=== PATIENT | female | born 1965 | race Caucasian/White ===

== ENCOUNTER 2022-01-30 13:52 | Outpatient (REF) | payer MEDICARE, SELFPAY ==
[2022-01-30 15:19] LABS: Amphetamine Screen Urine Not Detected (Not Detect); Barbiturates, Urine Not Detected (Not Detect); Benzodiazepines Screen Urine Not Detected (Not Detect); Cannabinoid Screen Urine Not Detected (Not Detect); Cocaine Screen Urine Not Detected (Not Detect); Fentanyl, urine POSITIVE (Not Detect); Opiate Screen Urine POSITIVE (Not Detect); Phencyclidine Screen Urine Not Detected (Not Detect)
== END 2022-01-30 13:53 | disposition home or self-care (01) ==
LOC: HO.LNP 13:52
PROVIDERS: Visit Provider Nurse Practitioner Family
DX: Z13.89 Encounter for screening for other disorder (principal)
CPT/HCPCS: 80307

== ENCOUNTER 2022-02-04 10:55 | Emergency (ER) | payer MEDICARE, SELFPAY ==
[2022-02-04 12:02] VITALS: BP 187/106; PULSE 75; RESP 18; TEMP 36.8; O2SAT 97; BMI 31.2
--- NOTE | 2022-02-04 14:32 | ED.GENADULT ---
HPI - General Adult General Chief complaint: General Medical Stated complaint: med refill Time Seen by Provider: 02/04/22 12:26 History of Present Illness HPI narrative: Patient with a long history of chronic pain and opiate prescriptions for there is from [place], has moved to [place], saw primary doctor who told her he will not refill this chronic pain prescription and advised her to go to the ER The patient has no acute or new complaints she has no complaint of any illness or any new injury and is here for medication refill Related Data Home Medications Medication Instructions Recorded Confirmed cholecalciferol (vitamin D3) 125 125 mcg PO DAILY 01/20/22 01/23/22 mcg (5,000 unit) tablet (Vitamin D3) ergocalciferol (vitamin D2) 50,000 unit PO 01/20/22 01/23/22 unit tablet gabapentin 300 mg tablet 300 mg PO TID 01/20/22 01/23/22 hydroxychloroquine 200 mg tablet 200 mg PO BID 01/20/22 01/23/22 (Plaquenil) infliximab 100 mg intravenous IV 01/20/22 01/23/22 solution (Remicade) morphine 10 mg capsule,extended 10 mg PO Q12H 01/20/22 01/23/22 release pellets omega 3-dha 200 mg-epa 300 mg-fish cap PO 01/20/22 01/23/22 oil 1,000 mg capsule oxycodone 5 mg capsule 5 mg PO Q4H PRN 01/20/22 01/23/22 pen needle, diabetic 32 gauge x 01/20/22 01/23/22 5/32 (BD Ultra-Fine Ghada Pen Needle) romosozumab-aqqg 210 mg/2.34 mg subcut 01/20/22 01/23/22 mL(105 mg/1.17 mL x2)subcutaneous syringe (Evenity) leflunomide 20 mg tablet (Arava) 10 mg PO BID-TID 01/31/22 trazodone 50 mg tablet 150 mg PO BEDTIME sleep 02/03/22 Previous Rx's Medication Instructions Recorded biotin 10 mg tablet 10 mg PO DAILY 30 days #30 tabs 01/20/22 cyanocobalamin (vitamin B-12) 2,500 mcg sublingual DAILY 30 days 01/20/22 2,500 mcg sublingual tablet #30 tabs (Vitamin B-12) diclofenac epolamine 1.3 % 1 patch transdermal BID 30 days 01/20/22 transdermal 12 hour patch (Flector) #30 ea duloxetine 60 mg capsule,delayed 60 mg PO DAILY 30 days #30 caps 01/20/22 release (Cymbalta) levothyroxine 112 mcg capsule 112 mcg PO DAILY 30 days #30 caps 01/20/22 metoprolol succinate 25 mg 25 mg PO BID 30 days #60 tabs 01/20/22 tablet,extended release 24 hr tizanidine 2 mg capsule 2 mg PO TID PRN muscle spasticity 01/20/22 30 days #90 caps zinc sulfate 50 mg zinc (220 mg) 50 mg PO DAILY 30 days #30 caps 01/20/22 capsule (Orazinc) oxycodone 5 mg tablet 5 mg PO Q6H PRN pain #10 tabs 02/04/22 Allergies Allergy/AdvReac Type Severity Reaction Status Date / Time sulfa Allergy Mild Hives Uncoded 01/20/22 14:34 Review of Systems Review of Systems: Negatives no fever no chills no new injury no dizziness no weakness no fainting no headache no neck pain no chest pain no shortness of breath no abdominal pain no nausea vomiting or diarrhea no dysuria no incontinence no loss of sensation no muscle weakness Yes all other systems are reviewed and are negative PMFSH Past Medical History Source: nursing notes reviewed Medical History (Updated 02/04/22 @ 14:48 by BERNABE Choe) Anemia Arthritis Autoimmune disease Chronic low back pain H/O Sjogren's disease Philipp thyroiditis, fibrous variant Hypertension Lupus Neuropathy Osteopenia of both ankles Polyarticular arthritis Psoriatic arthritis Raynaud disease Thyroid disease Surgical History History of ankle surgery History of knee replacement History of tonsillectomy Social History Social History (Updated 01/20/22 @ 14:30 by JANENE Msihra) Household Members: None Housing: Apartment Alcohol intake: never Patient Tobacco Use Status: Never used Tobacco e-Cigarette/Vaping Use: Never Used Advance Directives: No Advance Directives Information Provided: No Current occupational status: disabled Physical Exam ED Vital Signs: Vital Signs - 24 hr 02/04/22 12:02 Temperature 98.2 F Pulse Rate 75 Respiratory Rate 18 Blood Pressure 187/106 H Pulse Oximetry 97 Oxygen Delivery Method Room Air BMI result Body Mass Index 31.2 General appearance comfortable relax no acute distress Head is normocephalic atraumatic The pharynx is clear without redness swelling or exudate membranes moist Neck is supple Respiratory no distress Extremities full range of motion x4 Neuro no focal motor sensory deficit, gait and balance are normal, interaction both expression and comprehension are normal Course Course Course Narrative: Well-appearing patient, cooperative with long history of opiate prescriptions for chronic pain looking for refill It is explained that the ER will not do refills for chronic pain and long-term opiate prescription She is advised about the availability of Suboxone clinics and did express an interest in withdrawing from opiates She was given the prescription for 10 immediate release opiate tablets to use as needed for moments of worse pain and was discharged to follow with pain management or the Suboxone Clinic Discharge Plan Discharge Clinical Impression: Chronic pain Patient Disposition: Home, Self-Care Additional Instructions: It is impossible at this point to know if your having pain from opioid withdrawal or from some underlying chronic pain so follow closely with pain management and consider their Suboxone clinics A have lots of experience with patients in similar situations Return any concerns The ER unfortunately cannot refill chronic pain prescriptions I wrote a short as needed prescription for immediate release oxycodone which cannot be refilled Prescriptions: New oxycodone 5 mg tablet 5 mg PO Q6H PRN (Reason: pain) Qty: 10 0RF Rx Instructions: Partial Fill upon patient request. No Action leflunomide [Arava] 20 mg tablet 10 mg PO BID-TID omega 1-rgy-lxs-fish oil 200-300-1,000 mg capsule PO oxycodone 5 mg capsule 5 mg PO Q4H PRN gabapentin 300 mg tablet 300 mg PO TID (DME) pen needle, diabetic [BD Ultra-Fine Ghada Pen Needle] 32 gauge x needle See Rx Instructions .Route Rx Instructions: As directed infliximab [Remicade] 100 mg recon soln IV ergocalciferol (vitamin D2) 50,000 unit tablet PO cholecalciferol (vitamin D3) [Vitamin D3] 125 mcg (5,000 unit) tablet 125 mcg PO DAILY Evenity 210mg/2.34mL ( 105mg/1.17mLx2) syringe subcut morphine 10 mg capsule,extend.release pellets 10 mg PO Q12H hydroxychloroquine [Plaquenil] 200 mg tablet 200 mg PO BID biotin 10 mg tablet 10 mg PO DAILY 30 Days Qty: 30 2RF cyanocobalamin (vitamin B-12) [Vitamin B-12] 2,500 mcg tablet, sublingual 2,500 mcg sublingual DAILY 30 Days Qty: 30 2RF diclofenac epolamine [Flector] 1.3 % patch 12 hour 1 patch transdermal BID 30 Days Qty: 30 2RF duloxetine [Cymbalta] 60 mg capsule,delayed release(DR/EC) 60 mg PO DAILY 30 Days Qty: 30 0RF levothyroxine 112 mcg capsule 112 mcg PO DAILY 30 Days Qty: 30 2RF metoprolol succinate 25 mg tablet extended release 24 hr 25 mg PO BID 30 Days Qty: 60 2RF tizanidine 2 mg capsule 2 mg PO TID PRN (Reason: muscle spasticity) 30 Days Qty: 90 0RF zinc sulfate [Orazinc] 50 mg zinc (220 mg) capsule 50 mg PO DAILY 30 Days Qty: 30 2RF trazodone 50 mg tablet 150 mg PO BEDTIME
== END 2022-02-04 14:57 | disposition home or self-care (01) ==
PROVIDERS: Emergency Provider Emergency Medicine
DX: Z76.0 Encounter for issue of repeat prescription (principal); G89.4 Chronic pain syndrome
CPT/HCPCS: 99282

== ENCOUNTER → 2022-02-05 13:07 | Outpatient (BNVA) | payer MEDICARE, SELFPAY | PROVIDERS: PCP Nurse Practitioner Family; Visit Provider Nurse Practitioner Psychiatric/Mental Health | DX: Z51.81 Encounter for therapeutic drug level monitoring (principal); F11.20 Opioid dependence, uncomplicated | CPT/HCPCS: 80305; 99202; 99212 ==

== ENCOUNTER → 2022-02-10 14:24 | Outpatient (BNVA) | payer MEDICARE, SELFPAY | PROVIDERS: PCP Nurse Practitioner Family; Visit Provider Nurse Practitioner Psychiatric/Mental Health | DX: Z51.81 Encounter for therapeutic drug level monitoring (principal); F11.20 Opioid dependence, uncomplicated | CPT/HCPCS: 80305; 99212 ==

== ENCOUNTER → 2022-02-17 14:27 | Outpatient (BNVA) | payer MEDICARE, SELFPAY | PROVIDERS: PCP Nurse Practitioner Family; Visit Provider Nurse Practitioner Psychiatric/Mental Health | DX: Z51.81 Encounter for therapeutic drug level monitoring (principal); F11.20 Opioid dependence, uncomplicated | CPT/HCPCS: 80305; 99212 ==

== ENCOUNTER → 2022-03-07 13:56 | Outpatient (BNVA) | payer MEDICARE, SELFPAY | PROVIDERS: PCP Nurse Practitioner Family; Visit Provider Nurse Practitioner Psychiatric/Mental Health | DX: F11.20 Opioid dependence, uncomplicated (principal); Z51.81 Encounter for therapeutic drug level monitoring; Z79.899 Other long term (current) drug therapy | CPT/HCPCS: 80305; 99212 ==

== ENCOUNTER → 2022-03-24 15:13 | Outpatient (BNVA) | payer MEDICARE, SELFPAY | PROVIDERS: PCP Nurse Practitioner Family; Visit Provider Nurse Practitioner Psychiatric/Mental Health | DX: Z51.81 Encounter for therapeutic drug level monitoring (principal); F11.20 Opioid dependence, uncomplicated | CPT/HCPCS: 80305; 99212 ==

== ENCOUNTER → 2022-04-24 14:57 | Outpatient (BNVA) | payer MEDICARE, SELFPAY | PROVIDERS: PCP Internal Medicine; Visit Provider Nurse Practitioner Psychiatric/Mental Health | DX: Z51.81 Encounter for therapeutic drug level monitoring (principal); F11.20 Opioid dependence, uncomplicated | CPT/HCPCS: 80305; 99212 ==

== ENCOUNTER → 2022-06-05 15:13 | Outpatient (BNVA) | payer MEDICARE, SELFPAY | PROVIDERS: PCP Nurse Practitioner Family; Visit Provider Nurse Practitioner Psychiatric/Mental Health | DX: F11.20 Opioid dependence, uncomplicated (principal) | CPT/HCPCS: 99212 ==

== ENCOUNTER → 2022-06-16 14:43 | Outpatient (BNVA) | payer MEDICARE, SELFPAY | PROVIDERS: PCP Nurse Practitioner Family; Visit Provider Internal Medicine | DX: M85.871 Other specified disorders of bone density and structure, right ankle and foot (principal); M85.872 Other specified disorders of bone density and structure, left ankle and foot; M54.40 Lumbago with sciatica, unspecified side | CPT/HCPCS: 99202 ==

== ENCOUNTER 2022-07-01 12:42 | Outpatient (REF) | payer MEDICARE, SELFPAY ==
[2022-07-01 14:39] LABS: TSH reflex Free T4 3.88 uIU/mL (0.32-4.0)
== END 2022-07-01 12:43 | disposition home or self-care (01) ==
LOC: HO.WFDLDS 12:42
PROVIDERS: Visit Provider Nurse Practitioner Family
DX: Z00.00 Encounter for general adult medical examination without abnormal findings (principal)
CPT/HCPCS: 36415; 84443

== ENCOUNTER → 2022-07-07 14:54 | Outpatient (BNVA) | payer MEDICARE, MEDICAID, SELFPAY | PROVIDERS: PCP Nurse Practitioner Family; Visit Provider Nurse Practitioner Psychiatric/Mental Health | DX: F11.20 Opioid dependence, uncomplicated (principal) | CPT/HCPCS: 99212 ==

== ENCOUNTER 2022-07-18 14:53 | Outpatient (REF) | payer MEDICARE, MEDICAID, SELFPAY ==
--- NOTE | ~2022-07-18 | MM_ITS ---
EXAMINATION: BONE DENSITOMETRY CLINICAL INDICATION: Osteopenia. COMPARISON: None (current study represents initial baseline exam). TECHNIQUE: Using a [employer] DXA System (software version: 13.1) manufactured by [employer], dual-energy x-ray absorptiometry was performed of the lumbar spine and left hip. The images are of good technical quality. Summary results are attached. FINDINGS: AP SPINE L1-L4: BMD 1.129 g/cm2, Z-score -0.1, T-score -0.4, normal. LEFT FEMUR, NECK: BMD 0.963 g/cm2, Z-score 0.1, T-score -0.5, normal. LEFT FEMUR, TOTAL: BMD 0.948 g/cm2, Z-score -0.2, T-score -0.5, normal. IDENTIFIED RISK FACTORS: Early menopause, glucocorticoids (chronic), history of fracture (adult), hyperthyroid, osteoporosis, rheumatoid arthritis, secondary osteoporosis. HISTORY OF FRACTURE: Ankle(s). MEDICATIONS: Bisphosphonate, calcium, vitamin D. MM/XR DEXA axial skeleton IMPRESSION: 1. DIAGNOSIS: Normal bone density based on the lowest T-score value of -0.5 in the femur neck and total femur applying World Health Organization criteria. 2. 10-YEAR FRACTURE RISK PREDICTION, FRAX: According to the guidelines, FRAX calculation should only be performed on patients in the osteopenia bone density category. Therefore, FRAX was not performed on this patient. 3. Treatment Recommendations: NOF guidelines recommend consideration for treatment in postmenopausal women and men age 50 and older presenting with the following: -A hip or vertebral (clinical or morphometric) fracture. -T-score less than or equal to -2.5 at the femoral neck or spine after appropriate evaluation to exclude secondary causes. -Low bone mass at the hip or spine and a 10-year fracture probability by FRAX of greater than or equal to 3% for hip fracture or greater than or equal to 20% for major osteoporotic fracture based on the [place] adapted WHO algorithm. 4. Other Recommendations: All treatment decisions require clinical judgment and consideration of individual patient factors, including patient preferences, comorbidities, previous drug use, risk factors not captured in the FRAX model (e.g. frailty, falls, vitamin D deficiency, increased bone turnover, interval significant decline in bone density) and possible under or overestimation of fracture risk by FRAX. FUTURE SCAN RECOMMENDATION: People with diagnosed cases of osteoporosis or at high risk for fracture should have regular bone mineral density tests. For patients eligible for Medicare, routine testing is allowed once every 2 years. The testing frequency can be increased to one year for patients who have rapidly progressing disease, those who are receiving or discontinuing medical therapy to restore bone mass, or have additional risk factors.
== END 2022-07-18 14:54 | disposition home or self-care (01) ==
LOC: HO.MAMMO 14:53
PROVIDERS: PCP Nurse Practitioner Family; Visit Provider Internal Medicine
DX: Z13.820 Encounter for screening for osteoporosis (principal); M85.872 Other specified disorders of bone density and structure, left ankle and foot; M85.871 Other specified disorders of bone density and structure, right ankle and foot
CPT/HCPCS: 77080

== ENCOUNTER 2022-07-18 15:29 | Outpatient (REF) | payer MEDICARE, MEDICAID, SELFPAY ==
[2022-07-18 18:35] LABS: Free T4 (Free Thyroxine) 1.12 ng/dL (0.71-1.85)
== END 2022-07-18 15:30 | disposition home or self-care (01) ==
LOC: HO.LAB 15:29
PROVIDERS: PCP Nurse Practitioner Family; Visit Provider Nurse Practitioner Family
DX: M54.40 Lumbago with sciatica, unspecified side (principal); E03.9 Hypothyroidism, unspecified
CPT/HCPCS: 36415; 84439; 84443

== ENCOUNTER 2022-08-01 11:33 | Outpatient (REF) | payer MEDICARE, MEDICAID, SELFPAY ==
[2022-08-01 13:00] LABS: MANUAL DIFF FLAG NO
[2022-08-01 14:06] LABS: Basophils Absolute Auto 0.1 X10*3/uL (0.0-0.2); Basophils Percent Auto 1.2 % (0-2); Eosinophils Absolute Auto 0.2 X10*3/uL (0.0-0.4); Eosinophils Percent Auto 3.1 % (0-4); Hematocrit 34.1 % (37.0-47.0); Hemoglobin 10.7 g/dl (12.0-16.0); Imm Gran Abs Auto 0.02 X10*3/uL (0.00-0.03); Imm Gran Pct Auto 0.4 % (0.0-0.4); Lymphocytes Absolute Auto 2.4 X10*3/uL (1.2-4.9); Lymphocytes Percent Auto 48.5 % (20-40); Mean Corpuscular HGB Conc 31.4 g/dl (31.0-35.0); Mean Corpuscular Hemoglobin 27.6 pg (27.0-33.0); Mean Corpuscular Volume 87.9 fL (80.0-98.0); Mean Platelet Volume 9.8 fL (9.4-12.3); Monocytes Absolute Auto 0.4 X10*3/uL (0.1-1.2); Neutrophils Absolute Auto 1.9 x10*3/uL (2.0-8.3); Neutrophils Percent Auto 38.8 % (45-73); Platelet Count 289 X10*3/uL (160-400); Red Blood Count 3.88 X10*6/uL (4.20-5.50); Red Cell Distribution Width 14.2 % (11.0-16.0); White Blood Count 4.9 X10*3/uL (4.8-10.8)
[2022-08-01 14:48] LABS: Erythrocyte Sedimentation Rate 10 MM/HR (0-20)
[2022-08-01 15:20] LABS: Alanine Aminotransferase 11 U/L (0-31); Alkaline Phosphatase 59 U/L (39-117); Anion Gap 14 (12-20); Aspartate Amino Transferase 19 U/L (5-31); Bilirubin Total 0.3 mg/dL (0.0-1.0); Blood Urea Nitrogen 11 mg/dL (9-16); C Reactive Protein 0.44 mg/dL (< or = 0.50); Calcium 8.7 mg/dL (8.4-10.2); Carbon Dioxide 27 mmol/L (22-29); Chloride 105 mmol/L (96-108); Estimated Glomerular Filt Rate > 60; Glucose Random 105 mg/dL (60-115); Potassium 4.5 mmol/L (3.3-5.1); Sodium 141 mmol/L (135-145); Total Protein 6.5 g/dL (6.5-8.0)
== END 2022-08-01 11:34 | disposition home or self-care (01) ==
LOC: HO.LAB 11:33
PROVIDERS: PCP Nurse Practitioner Family; Visit Provider Student in an Organized Health Care Education/Training Program
DX: L40.53 Psoriatic spondylitis (principal); M32.9 Systemic lupus erythematosus, unspecified; M35.01 Sjogren syndrome with keratoconjunctivitis; M54.50 Low back pain, unspecified; G89.29 Other chronic pain; R13.14 Dysphagia, pharyngoesophageal phase; M80.0 Age-related osteoporosis with current pathological fracture; Z79.899 Other long term (current) drug therapy
CPT/HCPCS: 36415; 80053; 85025; 85652; 86140; 99202

== ENCOUNTER → 2022-08-11 15:33 | Outpatient (BNVA) | payer MEDICARE, MEDICAID, SELFPAY | PROVIDERS: PCP Nurse Practitioner Family; Visit Provider Nurse Practitioner Psychiatric/Mental Health | DX: F11.20 Opioid dependence, uncomplicated (principal); G89.29 Other chronic pain; M54.50 Low back pain, unspecified; H01.129 Discoid lupus erythematosus of unspecified eye, unspecified eyelid; E06.3 Autoimmune thyroiditis; I73.00 Raynaud's syndrome without gangrene; Z51.81 Encounter for therapeutic drug level monitoring; Z79.899 Other long term (current) drug therapy | CPT/HCPCS: 99212 ==

== ENCOUNTER 2022-08-27 12:35 | Outpatient (REF) | payer MEDICARE, MEDICAID, SELFPAY | END 2022-08-27 12:36 | disposition home or self-care (01) | LOC: HO.MDS 12:35 | PROVIDERS: PCP Nurse Practitioner Family; Visit Provider Student in an Organized Health Care Education/Training Program | DX: L40.50 Arthropathic psoriasis, unspecified (principal) | CPT/HCPCS: 96413; 96415; J1745 ==

== ENCOUNTER → 2022-09-12 15:39 | Outpatient (BNVA) | payer MEDICARE, MEDICAID, SELFPAY | PROVIDERS: PCP Nurse Practitioner Family; Visit Provider Nurse Practitioner Psychiatric/Mental Health | DX: F11.20 Opioid dependence, uncomplicated (principal) | CPT/HCPCS: 99212 ==

== ENCOUNTER → 2022-10-07 16:05 | Outpatient (BNVA) | payer MEDICARE, MEDICAID, SELFPAY | PROVIDERS: PCP Nurse Practitioner Family; Visit Provider Nurse Practitioner Psychiatric/Mental Health | DX: F11.20 Opioid dependence, uncomplicated (principal); Z79.899 Other long term (current) drug therapy; Z51.81 Encounter for therapeutic drug level monitoring | CPT/HCPCS: 99212 ==

== ENCOUNTER → 2022-10-13 14:53 | Outpatient (BNVA) | payer MEDICARE, MEDICAID, SELFPAY | PROVIDERS: PCP Nurse Practitioner Family; Visit Provider Internal Medicine | DX: M47.816 Spondylosis without myelopathy or radiculopathy, lumbar region (principal); M85.80 Other specified disorders of bone density and structure, unspecified site; M25.559 Pain in unspecified hip | CPT/HCPCS: 99212 ==

== ENCOUNTER 2022-10-13 15:37 | Outpatient (REF) | payer MEDICARE, MEDICAID, SELFPAY ==
[2022-10-13 15:50] LABS: MANUAL DIFF FLAG NO
[2022-10-13 17:56] LABS: Basophils Percent Auto 0.8 % (0-2); Eosinophils Absolute Auto 0.2 X10*3/uL (0.0-0.4); Eosinophils Percent Auto 4.2 % (0-4); Hemoglobin 10.9 g/dl (12.0-16.0); Imm Gran Abs Auto 0.01 X10*3/uL (0.00-0.03); Imm Gran Pct Auto 0.2 % (0.0-0.4); Lymphocytes Absolute Auto 1.6 X10*3/uL (1.2-4.9); Lymphocytes Percent Auto 31.1 % (20-40); Mean Corpuscular HGB Conc 30.3 g/dl (31.0-35.0); Mean Corpuscular Volume 85.9 fL (80.0-98.0); Mean Platelet Volume 9.6 fL (9.4-12.3); Monocytes Absolute Auto 0.5 X10*3/uL (0.1-1.2); Monocytes Percent Auto 9.3 % (2-11); Neutrophils Absolute Auto 2.9 x10*3/uL (2.0-8.3); Neutrophils Percent Auto 54.4 % (45-73); Platelet Count 326 X10*3/uL (160-400); Red Blood Count 4.19 X10*6/uL (4.20-5.50); Red Cell Distribution Width 13.9 % (11.0-16.0); White Blood Count 5.3 X10*3/uL (4.8-10.8)
[2022-10-13 18:02] LABS: NRBC Pct Auto 1.1 /100WBC (0.0-0.2)
[2022-10-13 18:29] LABS: Alanine Aminotransferase 12 U/L (0-31); Albumin Level 3.9 g/dL (3.5-5.0); Alkaline Phosphatase 62 U/L (39-117); Anion Gap 16 (12-20); Aspartate Amino Transferase 19 U/L (5-31); Bilirubin Total 0.3 mg/dL (0.0-1.0); Blood Urea Nitrogen 14 mg/dL (9-16); Calcium 8.7 mg/dL (8.4-10.2); Carbon Dioxide 25 mmol/L (22-29); Chloride 105 mmol/L (96-108); Cholesterol 183 mg/dL; Estimated Glomerular Filt Rate > 60; Glucose Fasting 105 mg/dL (60-99); HDL Cholesterol 69 mg/dL; LDL Cholesterol Calculated 99 mg/dl; Potassium 5.2 mmol/L (3.3-5.1); Sodium 141 mmol/L (135-145); Total Protein 6.8 g/dL (6.5-8.0); Triglycerides 78 mg/dL
== END 2022-10-13 15:38 | disposition home or self-care (01) ==
LOC: HO.LAB 15:37
PROVIDERS: Visit Provider Nurse Practitioner Family
DX: Z00.00 Encounter for general adult medical examination without abnormal findings (principal); M47.816 Spondylosis without myelopathy or radiculopathy, lumbar region; M25.551 Pain in right hip; Z79.899 Other long term (current) drug therapy
CPT/HCPCS: 36415; 80053; 80061; 85025

== ENCOUNTER 2022-10-27 14:05 | Outpatient (REF) | payer MEDICARE, MEDICAID, SELFPAY | END 2022-10-27 14:06 | disposition home or self-care (01) | LOC: HO.MDS 14:05 | PROVIDERS: Visit Provider Student in an Organized Health Care Education/Training Program | DX: L40.50 Arthropathic psoriasis, unspecified (principal) | CPT/HCPCS: 96413; 96415; J1745 ==

== ENCOUNTER 2022-10-27 17:03 | Outpatient (REF) | payer MEDICARE, MEDICAID, SELFPAY ==
[2022-10-27 17:40] LABS: Hematocrit 36.5 % (37.0-47.0); Hemoglobin 11.1 g/dl (12.0-16.0); Mean Corpuscular HGB Conc 30.4 g/dl (31.0-35.0); Mean Corpuscular Hemoglobin 26.5 pg (27.0-33.0); Mean Corpuscular Volume 87.1 fL (80.0-98.0); Mean Platelet Volume 9.3 fL (9.4-12.3); Platelet Count 290 X10*3/uL (160-400); Red Blood Count 4.19 X10*6/uL (4.20-5.50); Red Cell Distribution Width 14.2 % (11.0-16.0); White Blood Count 9.4 X10*3/uL (4.8-10.8)
[2022-10-27 18:06] LABS: Glucose Fasting 95 mg/dL (60-99); Potassium 5.3 mmol/L (3.3-5.1)
[2022-10-27 18:27] LABS: TSH reflex Free T4 0.17 uIU/mL (0.32-4.0)
[2022-10-27 20:23] LABS: Free T4 (Free Thyroxine) 1.38 ng/dL (0.71-1.85)
[2022-10-28 12:01] LABS: Immature Retic Fraction 23.6 % (3.0-15.9); Retic HGB Equivalent 26.9 pg (30.0-35.0); Reticulocyte Percent 1.3 % (0.5-1.8); Reticulocytes Absolute 0.054 X10*6/uL (0.026-0.095)
[2022-10-28 12:12] LABS: Iron 39 mcg/dL (30-160); Percent Iron Saturation 10 % (15-50); Potassium 5.3 mmol/L (3.3-5.1); Total Iron Binding Capacity 377 mcg/dL (228-428); Unsaturated Iron Binding 338 ug/dL
[2022-10-28 12:34] LABS: Ferritin 12 ng/mL (10-250); Folate 6.7 ng/mL (> or = 4.0); Vitamin B12 395 pg/mL (200-900)
== END 2022-10-27 17:04 | disposition home or self-care (01) ==
LOC: HO.LAB 17:03
PROVIDERS: Visit Provider Nurse Practitioner Family
DX: R73.01 Impaired fasting glucose (principal); E03.9 Hypothyroidism, unspecified; E87.5 Hyperkalemia; D64.9 Anemia, unspecified
CPT/HCPCS: 36415; 82607; 82728; 82746; 82947; 83540; 84132; 84439; 84443; 85027; 85045

== ENCOUNTER → 2022-11-19 15:46 | Outpatient (BNVA) | payer MEDICARE, MEDICAID, SELFPAY | PROVIDERS: PCP Nurse Practitioner Family; Visit Provider Nurse Practitioner Psychiatric/Mental Health | DX: F11.20 Opioid dependence, uncomplicated (principal) | CPT/HCPCS: 99212 ==

== ENCOUNTER 2022-11-21 11:35 | Outpatient (REF) | payer MEDICARE, MEDICAID, SELFPAY | END 2022-11-21 11:36 | disposition home or self-care (01) | LOC: HO.MDS 11:35 | PROVIDERS: Visit Provider Student in an Organized Health Care Education/Training Program | DX: L40.50 Arthropathic psoriasis, unspecified (principal) | CPT/HCPCS: 96413; 96415; J1745 ==

== ENCOUNTER → 2022-11-28 11:22 | Outpatient (BNVA) | payer MEDICARE, MEDICAID, SELFPAY | PROVIDERS: PCP Nurse Practitioner Family; Visit Provider Internal Medicine ==

== ENCOUNTER 2022-12-02 16:12 | Outpatient (AMB) | payer MEDICARE, MEDICAID, SELFPAY ==
[2022-12-02 16:24] VITALS: BP 122/74; PULSE 79; RESP 12; TEMP 37; O2SAT 98; BMI 32.8
--- NOTE | 2022-12-02 16:24 | MHC.PC.OV ---
Vital Signs 12/02/22 16:24 Height 5 ft 5 in Weight 197 lb 2 oz BMI 32.8 BP 122/74 Blood Pressure Location Lt brachial Position Sitting Respiration 12 Pulse 79 Pulse Source Pulse Oximeter Temp 98.6 F Temp Source Temporal Artery Scan Pulse Oximetry (%) 98 Oxygen Delivery Method Room Air Intake Visit Reasons: Swelling in both ankles/wrists Intake Note: Patient states that the swelling started about 2 weeks ago. Patient states that there is pain in her feet and has been itching. Patient states that her foot felt hot to touch last week. Patient states that her pain in her arm is within her wrists and shoulders. Patient states she use to have a mail in script for Flector patches and would like another prescription sent over to [facility]. Concrete Polisher Required: No Accompanied by: Self / Same As Patient Allergies sulfa Allergy (Mild, Uncoded 12/02/22 16:35) Hives Tobacco use date assessed: 05/13/22 Dental Screening Dental Screen Date: 12/02/22 Did you have a dental visit in the last 12 months?: Yes Did you have a dental problem in the last 6 months where you did not have access to dental care?: No Was dental information given to patient?: Patient has dentist HPI HPI Comments History of Present Illness Details 56-year-old female present with complaints of swelling and soreness of her wrists, and ankles for the past 2 weeks No tingling or numbness No fall, injury, or trauma She is followed by Rheumatology. She notes she was restarted on Remicade 4 months ago [facility] Medical History Anemia Arthritis Chronic low back pain Discoid lupus Philipp thyroiditis, fibrous variant Hypertension Neuropathy Osteopenia of both ankles Polyarticular arthritis Raynaud disease Thyroid disease Surgical History History of ankle surgery History of knee replacement History of tonsillectomy Family History Paternal Grandfather Rheumatoid arthritis Lupus Father ALS (amyotrophic lateral sclerosis) Mother Macular degeneration Social History Household Members: None Housing: Apartment Alcohol intake: never Patient Tobacco Use Status: Never used Tobacco e-Cigarette/Vaping Use: Never Used service: No Current occupational status: disabled Cognitive needs: No Hearing needs: No Vision needs: No Questionnaire Thrive Questionnaire Date Thrive assessed: 07/15/22 LATRICIA-7 AMB Questionnaire LATRICIA-7 Date LATRICIA - 7 assessed: 07/15/22 Source: Developed by Drs. Corby Peter, Porsha Mata, Jose Harrell and colleagues, with an educational fausto from [employer]. Review of Systems Const Details: Const Denies chills, Denies fatigue, Denies fever(s), Denies headache(s) and Denies weakness ENT Denies change in vision, Denies dizziness, Denies headache(s), Denies hearing loss, Denies nasal congestion, Denies sinus pain, Denies sinus pressure and Denies sore throat Resp Denies cough, Denies dyspnea, Denies wheezing and Denies other (shortness of breath) Cardio Denies chest pain, Denies lightheadedness, Denies dyspnea and Denies other (palpitations) Neuro Denies dizziness, Denies headache(s), Denies numbness, Denies tingling and Denies weakness Musc Reports as per HPI Endo Denies fatigue Aller/Immun Denies wheezing Physical exam (Primary Care) Vital Signs: Last Vital Signs Temp 98.6 F 12/02/22 16:24 Pulse 79 12/02/22 16:24 Resp 12 12/02/22 16:24 BP 122/74 12/02/22 16:24 Pulse Ox 98 12/02/22 16:24 Oxygen Delivery Method Room Air 12/02/22 16:24 BMI result Body Mass Index 32.8 Tobacco/Smoking Status: Tobacco use Status Tobacco use date assessed 05/13/22 12/02/22 16:38 Patient Tobacco Use Status Never used Tobacco 12/02/22 16:38 e-Cigarette/Vaping Use Never Used 12/02/22 16:38 Thrive Assessment: Date of Thrive Assessment Date Thrive assessed 07/15/22 12/02/22 16:38 Const Other: Const General: well developed; No acute distress Nutritional Appearance: well nourished Orientation/consciousness: patient oriented x3 HEENT Head: Yes normocephalic and Yes atraumatic Eyes General: appearance normal, both eyes and all related structures Pupils: Equal, round and reactive pupils present EOM: EOMs intact bilaterally Resp Effort & Inspection: normal respiratory effort Auscultation: clear to auscultation bilaterally Cardio Rate: regular rate Rhythm: regular rhythm Heart sounds: S1 normal heart sound present, S2 normal heart sound present, no gallops, no murmurs and no rubs Bruits: no abdominal aortic bruits and no carotid bruits Back/Spine/Pelvis Back: no CVA tenderness Cervical Spine: cervical ROM normal and No Cervical spine tenderness Thoracic/Lumbar Spine: thoraco-lumbar ROM normal, No pain with thoraco-lumbar ROM, No thoracic spinal tenderness and No lumbar spinal tenderness Extrem General: Yes normal to inspection, No calf tenderness Mild nonpitting edema around the wrists and ankles, no erythema or overt trauma Neuro General: patient oriented x3 and gait normal, no focal neuro deficit Cranial nerves: Yes Equal, round and reactive pupils present Psych Affect: normal affect Assessment and Plan Assessment & Plan (1) Joint swelling: Code(s): M25.40 - Effusion, unspecified joint Plan: 56-year-old female present with complaints of swelling and soreness of her wrists, and ankles for the past 2 weeks Mild nonpitting edema around the wrists and ankles, no erythema or overt trauma Likely due to chronic arthritis May take Tylenol for pain or discomfort Flexor patch refilled. Take as prescribed Follow-up with Rheumatology as planned Schedule follow-up with PCP for health maintenance Return sooner with new or worsening signs and symptoms Verbalized understanding and agreed with treatment plan. (2) Hypothyroidism: Code(s): E03.9 - Hypothyroidism, unspecified Plan: Recent TSH was low, 0.17, T4 was normal Will reduce levothyroxine dose to 125 mcg daily. Take as prescribed TSH/T4 ordered. Advised to get blood work done before next visit Follow-up in 6 weeks or return sooner with symptoms or concerns Verbalized understanding and agreed with treatment plan. (3) Hyperkalemia: Code(s): E87.5 - Hyperkalemia Plan: Recent potassium level was elevated, 5.3 She notes she was consuming lot of bananas and has reduced as advised by PCP Encouraged to get potassium lab work done as soon as possible Verbalized understanding and agreed with plan. Orders: Orders TSH reflex Free T4 6 Weeks E03.9 - Hypothyroidism, unspecified Medications: New levothyroxine 125 mcg PO DAILY 30 days 30 tabs 3RF Refilled diclofenac epolamine 1.3% (Flector) 1 patch transdermal .qd 30 ea 0RF M54.40 - Lumbago with sciatica, unspecified side diclofenac epolamine 1.3% (Flector) 1 patch transdermal .qd 30 ea 2RF M54.40 - Lumbago with sciatica, unspecified side Discontinued levothyroxine Discontinued Reason: Doctor's Order 137 mcg PO DAILY 30 days 30 tabs 3RF Coding Level of Care Code Est Pt Level 4 (08795) Diagnoses Joint swelling M25.40 Hypothyroidism E03.9 Hyperkalemia E87.5 Time Spent (min) 35
== END 2022-12-02 17:04 | disposition home or self-care (01) ==
PROVIDERS: PCP Nurse Practitioner Family; Visit Provider Nurse Practitioner Family
DX: M25.40 Effusion, unspecified joint (principal); E03.9 Hypothyroidism, unspecified; E87.5 Hyperkalemia
CPT/HCPCS: 99214

== ENCOUNTER 2022-12-09 16:04 | Outpatient (AMB) | payer MEDICARE, MEDICAID, SELFPAY ==
[2022-12-09 16:07] VITALS: BP 118/74; PULSE 81; TEMP 36.5; O2SAT 94; BMI 32.6
--- NOTE | 2022-12-09 16:07 | MHC.OFFVIS ---
Intake Vital Signs 12/09/22 16:07 Height 5 ft 5 in Weight 196 lb 3.382 oz BMI 32.6 BP 118/74 Blood Pressure Location Rt brachial Position Sitting Pulse 81 Pulse Source Pulse Oximeter Temp 97.7 F Temp Source Skin Pulse Oximetry (%) 94 Intake Visit Reasons: PSA/Sjorgens Intake Note: Pt seen today for follow up. C/o pain and swelling in wrist and ankles. [employer] Required: No Accompanied by: Self / Same As Patient Allergies sulfa Allergy (Mild, Uncoded 12/09/22 16:09) Hives Medication List - Last Reconciled 12/09/22 by Sunni Samuels MD biotin 10 mg PO DAILY 30 days buprenorphine-naloxone 2-0.5 mg (Suboxone) 1 film sublingual TID cevimeline 1 cap PO TID cholecalciferol (vitamin D3) (Vitamin D3) 125 mcg PO DAILY cyanocobalamin (vitamin B-12) (Vitamin B-12) 2,500 mcg sublingual DAILY 30 days diclofenac epolamine 1.3% (Flector) 1 patch transdermal .qd duloxetine (Cymbalta) 60 mg PO DAILY 30 days ergocalciferol (vitamin D2) units PO ferrous sulfate 325 mg PO DAILY 30 days gabapentin 300 mg PO TID 30 days hydroxychloroquine (Plaquenil) 200 mg PO BID hydroxyzine HCl 25 mg PO BEDTIME PRN infliximab (Remicade) Loading dose: 5 mg/kg at 0, 2 and 6 weeks Maintenance dose: 5 mg kg every 8 weeks leflunomide (Arava) 10 mg PO BID-TID levothyroxine 125 mcg PO DAILY 30 days lorazepam 0.5 mg PO DAILY PRN metoprolol succinate ER 25 mg PO BID 30 days naloxone 4 mg/actuation (Narcan) 4 mg intranasal Q2M PRN omega 4-dtr-ttu-fish oil 200-300-1,000 mg 1 cap PO DAILY 30 days omeprazole 20 mg PO DAILY 30 days ondansetron HCl 4 mg PO Q6H PRN tizanidine 2 mg PO Q8H PRN 30 days trazodone 150 mg PO BEDTIME PRN 30 days zinc sulfate (Orazinc) 50 mg PO DAILY 30 days HPI HPI Comments History of Present Illness Details 56-year-old female with psoriatic arthritis, Sjogren's presents for follow-up. She recently received the 3 loading doses of Remicade. After her last dose of Remicade 2 weeks ago she developed pain and swelling in her wrists and ankles. As well as pain and swelling in her toes. She takes Tylenol as needed for pain relief. Does not use NSAIDs. Denies food getting stuck in her chest today. She is compliant with hydroxychloroquine. Was not able to find an bull driver. Initial history: This is a 56-year-old female with a past medical history of psoriatic spondylitis, Sjogren's who presents as a new patient. She recently moved from [facility]. 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 Afterwards patient had multiple symptoms including dry eyes and dry mouth, Raynaud's and low back pain as well as peripheral arthritis. She was on multiple DMARDs for her arthritis including methotrexate which she could not tolerate, she was on Arava but per patient it caused diarrhea so now she takes 10 mg twice a week. She has been on hydroxychloroquine all through. Follows up regularly with Ophthalmology. She was started on Remicade 3-4 years ago 5 mg/kg every 8 weeks with significant improvement in her overall symptoms especially her back pain. Patient's last dose of Remicade was in November of 2021. Patient states that feels significant worsening of her overall joint pain especially her back now that she has not received Remicade for 8 months. Continues to have dry eyes and dry mouth. Uses Restasis regularly. Uses Salagen twice daily for dry mouth without significant relief. Continues to use Biotene mouthwash and Biotene toothpaste. In 2018 patient fell down the stairs and broke both her ankles does fractures were thought to be osteoporotic in nature. She had ORIF, she then took alendronate for a few months but could not tolerated due to GI upset. She could not do Tymlos as patient was needle phobic. Patient received Evenity 02/03 doses. Last dose was November of 2021. Patient states that food gets stuck almost every meal and she has to drink some water to get food to pass. [facility] Medical History (Updated 12/09/22 @ 17:06 by Sunni Samuels MD) Anemia Arthritis Chronic low back pain Discoid lupus Philipp thyroiditis, fibrous variant Hypertension Neuropathy Osteopenia of both ankles Polyarticular arthritis Raynaud disease Thyroid disease Surgical History History of ankle surgery History of knee replacement History of tonsillectomy Family History Paternal Grandfather Rheumatoid arthritis Lupus Father ALS (amyotrophic lateral sclerosis) Mother Macular degeneration Social History Household Members: None Housing: Apartment Alcohol intake: never Patient Tobacco Use Status: Never used Tobacco e-Cigarette/Vaping Use: Never Used service: No Current occupational status: disabled Cognitive needs: No Hearing needs: No Vision needs: No Review of Systems Musc Reports back pain, Reports myalgias, Reports arthralgias, Reports joint swelling and Reports stiffness Physical Exam Vital Signs: Last Vital Signs Temp 97.7 F 12/09/22 16:07 Pulse 81 12/09/22 16:07 BP 118/74 12/09/22 16:07 Pulse Ox 94 12/09/22 16:07 BMI result Body Mass Index 32.6 Const General: cooperative and healthy appearing Nutritional Appearance: obese Orientation/consciousness: patient oriented x3 Limitations: no limitations HEENT Head: Yes normocephalic and Yes atraumatic Mouth: moist mucous membranes Resp Effort & Inspection: normal respiratory effort and able to speak in complete sentences Auscultation: clear to auscultation bilaterally Cardio Rate: regular rate Rhythm: regular rhythm GI Inspection: No distended Palpation (GI): Soft to palpation and nontender Skin General skin exam: no rashes or lesions noted Neuro General: patient oriented x3 Extrem Other: Mild right wrist swelling and pain with minimal flexion and extension Few tender MCPs and PIPs right hand Mild left wrist swelling and pain with full flexion and extension Few tender MCPs and PIPs Bilateral ankle tenderness at the lateral malleolus Right foot bunion, tender to palpation Patient showed me a picture on her phone which showed clear dactylitis of left 3rd through 5th toes Results Reviewed Results Reviewed: Labs 01/2022? Urinalysis With trace protein and trace bilirubin Protein/creatinine ratio normal SUAD 1-160 homogeneous CMP unremarkable SSA +++ DsDNA/Scl 70/Rangel/MANUFACTURING ENGINEER AUTOMOTIVE /RF/CCP all -ve C4/C3 normal Hep C antibody/HepB core antibody IgM/HbS Ag/negative QuantiFERON negative Free T4 normal? ?TSH 7.99 MRI L-spine 04/2021 Impression multilevel spondylitic changes and focal disc protrusion at L3-L4 contacts the trend sending right L4 nerve root in the lateral recess without definite displacement DEXA 12/2018? L-spine T-score -1.2? Mean proximal fever -0.5? Mean femur neck -0.9 SI joint x-rays 10/2016? Findings the SI joints are intact with mild degenerative changes bilaterally.? Upper sacrum arcuate line are preserved.? Lower sacrum is obscured.? On the lateral view of the sacral coccyx no fracture or malalignment is seen.? Soft tissues unremarkable.? No radiopaque foreign bodies or soft tissue gas Assessment & Plan Assessment & Plan (1) Psoriatic arthritis: Comment: Per patient onset around 2003 Prednisone for about 10 years Could not tolerate methotrexate Humira was not effective Hydroxychloroquine throughout Remicade at 5 mgs/kg every 8 weeks started around 2015 Unclear when arrival was started. But she only takes 10 mg twice a week, higher doses cause diarrhea Code(s): L40.50 - Arthropathic psoriasis, unspecified Plan: 56-year-old female with a past medical history of psoriatic spondylitis returns for follow-up. Patient received loading dose of Remicade 5 milligram/kilogram at 0, 2 in 6 weeks she continues to have active synovitis on exam. And she showed me picture of clear-cut dactylitis affecting her left foot. I wonder whether patient has developed anti infliximab antibodies. Will check infliximab level and antibodies. Check disease activity labs. Accordingly will either consider increasing Remicade dose versus switching therapy Continue Arava 10 mg twice a week Continue hydroxychloroquine 200 mg Twice daily (2) Sjogren syndrome with keratoconjunctivitis: Code(s): M35.01 - Sjogren syndrome with keratoconjunctivitis Plan: SUAD 1-160 homogeneous. +++SSa. Dry eyes and dry mouth. Continue Restasis Continue Biotene mouthwash and Biotene toothpaste. Try XyliMelts lozenges [id number] (3) Chronic low back pain: Code(s): M54.50 - Low back pain, unspecified; G89.29 - Other chronic pain Qualifiers: Back pain laterality: right Plan: Was evaluated by Pain Management and a therapeutic procedure trial was suggested but patient canceled it. Continue to follow-up with pain managed (4) Osteoporosis with fracture: Comment: Bilateral ankle fracture while walking down the stairs. Around 10 years of chronic corticosteroid exposure DEXA 12/2018? L-spine T-score -1.2? Mean proximal fever -0.5? Mean femur neck -0.9 DEXA 06/2022 L-spine T-score -0.4 Left femur neck-0.5 Left femur total -0.5 Took alendronate for about 6 months stopped due to GI intolerance Needle phobic could not use Tymlos Took 9 out of 12 doses of Evenity, last dose 11/2021 Code(s): M80.80XA - Other osteoporosis with current pathological fracture, unspecified site, initial encounter for fracture Qualifiers: Osteoporosis type: age-related Site of pathological fracture: tibia and fibula Encounter type: initial encounter Laterality: unspecified laterality Qualified Code(s): M80.069A - Age-related osteoporosis with current pathological fracture, unspecified lower leg, initial encounter for fracture Plan: Patient broke both her ankles were walking down the stairs in November of 2018 s/p ORIF. DEXA scan showed osteopenia -1.2 but due to long history of corticosteroid exposure she was deemed to have osteoporosis. Patient received Evenity for 9 doses with some improvement of her T-score. Today we discussed consolidation with Reclast. Patient agreed to proceed. 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 I advised patient to call her insurance company and look for ophthalmologists in the area who except her insurance Plan I spent 52 minutes reviewing patient's chart, evaluating patient, ordering diagnostic workup, counseling patient and documenting in the chart Orders: Orders Comprehensive Met. Panel Today L40.50 - Arthropathic psoriasis, unspecified C Reactive Protein Today L40.50 - Arthropathic psoriasis, unspecified Other Ref Test - Misc Today Z51.81 - Encounter for therapeutic drug level monitoring, Z79.620 - intermediate (current) use of immunosuppressive biologic Complete Blood Count Auto Diff Today L40.50 - Arthropathic psoriasis, unspecified Erythrocyte Sedimentation Rate Today L40.50 - Arthropathic psoriasis, unspecified Protein Creatinine Ratio, Ur Today M32.9 - Systemic lupus erythematosus, unspecified Complement C3 Today M32.9 - Systemic lupus erythematosus, unspecified Complement C4 Today M32.9 - Systemic lupus erythematosus, unspecified Anti DNA DS Antibody Today M32.9 - Systemic lupus erythematosus, unspecified Anti Extractable Nuclear Ag Today M32.9 - Systemic lupus erythematosus, unspecified Sjogren's Antibodies Today M32.9 - Systemic lupus erythematosus, unspecified UA w Microscopic Today M32.9 - Systemic lupus erythematosus, unspecified Coding Level of Care Code Est Pt Level 5 (47068) Diagnoses Psoriatic arthritis L40.50 Sjogren syndrome with keratoconjunctivitis M35.01 Chronic low back pain M54.50; G89.29 Back pain laterality: right Osteoporosis with fracture M80.069A Osteoporosis type: age-related Site of pathological fracture: tibia and fibula Encounter type: initial encounter Laterality: unspecified laterality Long-term use of hydroxychloroquine Z79.899
== END 2022-12-09 16:43 | disposition home or self-care (01) ==
PROVIDERS: PCP Nurse Practitioner Family; Visit Provider Student in an Organized Health Care Education/Training Program
DX: L40.50 Arthropathic psoriasis, unspecified (principal); M35.01 Sjogren syndrome with keratoconjunctivitis; M54.50 Low back pain, unspecified; G89.29 Other chronic pain; M80.0 Age-related osteoporosis with current pathological fracture; Z79.899 Other long term (current) drug therapy
CPT/HCPCS: 99215

== ENCOUNTER 2022-12-09 16:04 | Outpatient (REF) | payer MEDICARE, MEDICAID, SELFPAY ==
[2022-12-09 18:21] LABS: Hematocrit 37.1 % (37.0-47.0); Hemoglobin 11.2 g/dl (12.0-16.0); Mean Corpuscular HGB Conc 30.2 g/dl (31.0-35.0); Mean Corpuscular Volume 86.3 fL (80.0-98.0); Mean Platelet Volume 9.6 fL (9.4-12.3); Platelet Count 342 X10*3/uL (160-400); Red Cell Distribution Width 15.6 % (11.0-16.0); Retic HGB Equivalent 28.3 pg (30.0-35.0); Reticulocytes Absolute 0.044 X10*6/uL (0.026-0.095)
[2022-12-09 18:42] LABS: Alanine Aminotransferase 11 U/L (0-31); Albumin Level 3.9 g/dL (3.5-5.0); Alkaline Phosphatase 69 U/L (39-117); Anion Gap 13 (12-20); Aspartate Amino Transferase 18 U/L (5-31); Bilirubin Total 0.3 mg/dL (0.0-1.0); Blood Urea Nitrogen 15 mg/dL (9-16); C Reactive Protein 1.42 mg/dL (< or = 0.50); Calcium 9.2 mg/dL (8.4-10.2); Carbon Dioxide 28 mmol/L (22-29); Chloride 105 mmol/L (96-108); Estimated Glomerular Filt Rate > 60; Glucose Random 109 mg/dL (60-115); Iron 38 mcg/dL (30-160); Percent Iron Saturation 12 % (15-50); Potassium 4.3 mmol/L (3.3-5.1); Sodium 142 mmol/L (135-145); Total Iron Binding Capacity 323 mcg/dL (228-428); Total Protein 7.2 g/dL (6.5-8.0); Unsaturated Iron Binding 285 ug/dL
[2022-12-09 18:48] LABS: Potassium 4.5 mmol/L (3.3-5.1)
[2022-12-09 19:02] LABS: Ferritin 38 ng/mL (10-250)
[2022-12-09 19:04] LABS: Erythrocyte Sedimentation Rate 14 MM/HR (0-20)
== END 2022-12-09 16:05 | disposition home or self-care (01) ==
LOC: HO.LAB 16:04
PROVIDERS: Absent Provider Nurse Practitioner Family; PCP Nurse Practitioner Family; Visit Provider Student in an Organized Health Care Education/Training Program
DX: L40.50 Arthropathic psoriasis, unspecified (principal); E87.5 Hyperkalemia; D64.9 Anemia, unspecified; M35.01 Sjogren syndrome with keratoconjunctivitis; M54.50 Low back pain, unspecified; Z79.899 Other long term (current) drug therapy; Z79.620 Long term (current) use of immunosuppressive biologic
CPT/HCPCS: 36415; 80053; 80230; 82728; 83520; 83540; 84132; 85027; 85045; 85652; 86140; 99212

== ENCOUNTER 2022-12-26 15:22 | Outpatient (AMB) | payer MEDICARE, MEDICAID, SELFPAY ==
--- NOTE | 2022-12-26 15:28 | A.OFFVIS_ITS ---
Intake Vital Signs 12/26/22 15:29 BP 138/90 H Blood Pressure Location Lt brachial Position Sitting Pulse 72 Pulse Oximetry (%) 95 Intake Visit Reasons: mat visit Allergies sulfa Allergy (Mild, Uncoded 12/09/22 16:09) Hives HPI mat visit HPI Details Patient presents for follow up Currently prescribed Suboxone 2mg TID Has been taking medication more consistently and feels it has been very helpful no questions or concerns at this time [facility] Medical History (Updated 12/09/22 @ 17:06 by Sunni Samuels MD) Anemia Arthritis Chronic low back pain Discoid lupus Philipp thyroiditis, fibrous variant Hypertension Neuropathy Osteopenia of both ankles Polyarticular arthritis Raynaud disease Thyroid disease Surgical History History of ankle surgery History of knee replacement History of tonsillectomy Family History Paternal Grandfather Rheumatoid arthritis Lupus Father ALS (amyotrophic lateral sclerosis) Mother Macular degeneration Social History Household Members: None Housing: Apartment Alcohol intake: never Patient Tobacco Use Status: Never used Tobacco e-Cigarette/Vaping Use: Never Used service: No Current occupational status: disabled Cognitive needs: No Hearing needs: No Vision needs: No Review of Systems Const Reports as per HPI and Reports no additional complaints Physical Exam Vital Signs: Last Vital Signs Pulse 72 12/26/22 15:29 BP 138/90 H 12/26/22 15:29 Pulse Ox 95 12/26/22 15:29 Const General: cooperative, no acute distress and alert Nutritional Appearance: well nourished Orientation/consciousness: patient oriented x3 Limitations: no limitations Neuro General: patient oriented x3 Psych Appearance: grossly normal Mental Status: mental status grossly normal Speech and movement: Normal speech and movement present Affect: normal affect Attitude: cooperative Thought process: Normal thought process present Thought content: Normal thought content present Insight: Fair insight present (Psych) Judgement: Fair judgement present (Psych) Assessment & Plan Assessment & Plan (1) Opioid dependence: Code(s): F11.20 - Opioid dependence, uncomplicated Plan: * continue suboxone at current dose * follow up 2 months encouraged to call office prior to next visit if necessary Medications: Refilled buprenorphine-naloxone 2-0.5 mg (Suboxone) 1 film sublingual TID 90 ea 1RF Coding Level of Care Code Est Pt Level 3 (35074) Diagnoses Opioid dependence F11.20
[2022-12-26 15:29] VITALS: BP 138/90; PULSE 72; O2SAT 95
== END 2022-12-26 15:48 | disposition home or self-care (01) ==
LOC: HO.HCC 15:22
PROVIDERS: PCP Nurse Practitioner Family; Visit Provider Nurse Practitioner Psychiatric/Mental Health
DX: F11.20 Opioid dependence, uncomplicated (principal)
CPT/HCPCS: 99213

== ENCOUNTER → 2022-12-26 15:22 | Outpatient (BNVA) | payer MEDICARE, MEDICAID, SELFPAY | PROVIDERS: PCP Nurse Practitioner Family; Visit Provider Nurse Practitioner Psychiatric/Mental Health | DX: F11.20 Opioid dependence, uncomplicated (principal) | CPT/HCPCS: 99212 ==

== ENCOUNTER 2023-01-27 12:21 | Outpatient (REF) | payer MEDICARE, MEDICAID, SELFPAY ==
[2023-01-27 12:39] LABS: MANUAL DIFF FLAG NO
[2023-01-27 13:36] LABS: Basophils Percent Auto 0.9 % (0-2); Eosinophils Absolute Auto 0.2 X10*3/uL (0.0-0.4); Eosinophils Percent Auto 4.1 % (0-4); Hematocrit 34.9 % (37.0-47.0); Hemoglobin 10.5 g/dl (12.0-16.0); Lymphocytes Absolute Auto 2.6 X10*3/uL (1.2-4.9); Mean Corpuscular HGB Conc 30.1 g/dl (31.0-35.0); Mean Corpuscular Volume 86.4 fL (80.0-98.0); Mean Platelet Volume 11.2 fL (9.4-12.3); Monocytes Absolute Auto 0.4 X10*3/uL (0.1-1.2); Monocytes Percent Auto 8.1 % (2-11); Neutrophils Absolute Auto 1.4 x10*3/uL (2.0-8.3); Neutrophils Percent Auto 29.9 % (45-73); Platelet Count 221 X10*3/uL (160-400); Red Blood Count 4.04 X10*6/uL (4.20-5.50); Red Cell Distribution Width 15.1 % (11.0-16.0); White Blood Count 4.6 X10*3/uL (4.8-10.8)
[2023-01-27 14:17] LABS: Appearance Urine Clear; Color Urine Dark Yellow; Glucose Urine UA Negative (Negative); Leukocyte Esterase Urine Negative (Negative); Nitrite Urine Negative (Negative); PH 5.5 (5.0-9.0); Specific Gravity - Urine >= 1.030 (1.005-1.025); UMIC TRIGGER UA YES; Urine Blood Negative (Negative); Urine Ketones Negative (Negative); Urine Protein 30 (1+) mg/dL (Neg-Trace)
[2023-01-27 14:23] LABS: Bacteria Urine None Seen (None Seen); Hyaline Casts Urine 0-2 /LPF (0-2); RBC Urine 0-2 /HPF (0-2); Squamous Epithelial Cell Urine 0-2 /HPF (0-2); WBC Urine 0-5 /HPF (0-5)
[2023-01-27 15:00] LABS: Creatinine Urine 292.24 mg/dL; Protein/Creatinine Ratio, Ur 0.06 (<0.2); Total Protein Urine Random 17 mg/dL (<12)
[2023-01-27 15:22] LABS: TSH reflex Free T4 0.92 uIU/mL (0.32-4.0)
[2023-01-28 23:08] LABS: Complement C3 115 mg/dL (83-193)
[2023-01-29 13:59] LABS: Anti DNA DS Antibody <1 IU/mL; Antibody to SS-A Antigen >8.0 POS AI (<1.0 NEG); Antibody to SS-B Antigen <1.0 NEG AI (<1.0 NEG); SM/Ribonucleoprotein Ab <1.0 NEG AI (<1.0 NEG); Smith Protein <1.0 NEG AI (<1.0 NEG)
== END 2023-01-27 12:22 | disposition home or self-care (01) ==
LOC: HO.LAB 12:21
PROVIDERS: Nurse Practitioner Family; Visit Provider Student in an Organized Health Care Education/Training Program
DX: M32.9 Systemic lupus erythematosus, unspecified (principal); E03.9 Hypothyroidism, unspecified; L40.50 Arthropathic psoriasis, unspecified; R21 Rash and other nonspecific skin eruption; M35.01 Sjogren syndrome with keratoconjunctivitis; M54.50 Low back pain, unspecified; Z79.899 Other long term (current) drug therapy
CPT/HCPCS: 36415; 81001; 82570; 84156; 84443; 85025; 86160; 86225; 86235; 99212

== ENCOUNTER 2023-01-27 12:56 | Outpatient (AMB) | payer MEDICARE, MEDICAID, SELFPAY ==
--- NOTE | 2023-01-27 12:56 | MHC.OFFVIS ---
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 Accompanied by: Self / Same As Patient Allergies sulfa Allergy (Mild, Uncoded 01/27/23 12:57) Hives Medication List - Last Reconciled 01/27/23 by Sunni Samuels MD biotin 10 mg PO DAILY 30 days buprenorphine-naloxone 2-0.5 mg (Suboxone) 1 film sublingual TID cevimeline 1 cap PO TID cholecalciferol (vitamin D3) (Vitamin D3) 125 mcg PO DAILY cyanocobalamin (vitamin B-12) (Vitamin B-12) 2,500 mcg sublingual DAILY 30 days diclofenac epolamine 1.3% (Flector) 1 patch transdermal .qd duloxetine (Cymbalta) 60 mg PO DAILY 30 days ergocalciferol (vitamin D2) units PO etanercept (Enbrel SureClick) 50 mg subcut QWEEK ferrous sulfate 325 mg PO DAILY 30 days gabapentin 300 mg PO TID 30 days hydroxychloroquine 200 mg PO BID hydroxyzine HCl 25 mg PO BEDTIME PRN leflunomide (Arava) 10 mg PO BID-TID levothyroxine 125 mcg PO DAILY 30 days lorazepam 0.5 mg PO DAILY PRN metoprolol succinate ER 25 mg PO BID 30 days naloxone 4 mg/actuation (Narcan) 4 mg intranasal Q2M PRN omega 7-cvg-ijc-fish oil 200-300-1,000 mg 1 cap PO DAILY 30 days omeprazole 20 mg PO DAILY 30 days ondansetron HCl 4 mg PO Q6H PRN prednisone Take 3 tabs by mouth once daily with breakfast for 1 week then 2 tabs daily for 1 week then 1 tab daily for 1 week then stop tizanidine 2 mg PO Q8H PRN 30 days trazodone 150 mg PO BEDTIME PRN 30 days zinc sulfate (Orazinc) 50 mg PO DAILY 30 days zoledronic hayc-erbezhxu-ruajg 5 mg/100 mL (Reclast) 5 ea IV .12 months HPI HPI Comments History of Present Illness Details 57-year-old female with psoriatic arthritis, Sjogren's presents for follow-up. She did 3 Enbrel injections so far. After the 2nd injection she started noticing a rash on her right forearm, rash is not itchy. She denies any trauma to the rash. Denies any significant sun exposure. 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 Continues to have the same pain in her hands, fingers, ankles and toes. Initial history: This is a 56-year-old female with a past medical history of psoriatic spondylitis, Sjogren's who presents as a new patient. She recently moved from [facility]. 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 Afterwards patient had multiple symptoms including dry eyes and dry mouth, Raynaud's and low back pain as well as peripheral arthritis. She was on multiple DMARDs for her arthritis including methotrexate which she could not tolerate, she was on Arava but per patient it caused diarrhea so now she takes 10 mg twice a week. She has been on hydroxychloroquine all through. Follows up regularly with Ophthalmology. She was started on Remicade 3-4 years ago 5 mg/kg every 8 weeks with significant improvement in her overall symptoms especially her back pain. Patient's last dose of Remicade was in November of 2021. Patient states that feels significant worsening of her overall joint pain especially her back now that she has not received Remicade for 8 months. Continues to have dry eyes and dry mouth. Uses Restasis regularly. Uses Salagen twice daily for dry mouth without significant relief. Continues to use Biotene mouthwash and Biotene toothpaste. In 2018 patient fell down the stairs and broke both her ankles does fractures were thought to be osteoporotic in nature. She had ORIF, she then took alendronate for a few months but could not tolerated due to GI upset. She could not do Tymlos as patient was needle phobic. Patient received Evenity 02/03 doses. Last dose was November of 2021. Patient states that food gets stuck almost every meal and she has to drink some water to get food to pass. PFSH Medical History Anemia Arthritis Chronic low back pain Discoid lupus Philipp thyroiditis, fibrous variant Hypertension Neuropathy Osteopenia of both ankles Polyarticular arthritis Raynaud disease Thyroid disease Surgical History History of ankle surgery History of knee replacement History of tonsillectomy Family History Paternal Grandfather Rheumatoid arthritis Lupus Father ALS (amyotrophic lateral sclerosis) Mother Macular degeneration Social History Household Members: None Housing: Apartment Alcohol intake: never Patient Tobacco Use Status: Never used Tobacco e-Cigarette/Vaping Use: Never Used service: No Current occupational status: disabled Cognitive needs: No Hearing needs: No Vision needs: No Review of Systems Musc Reports arthralgias, Reports joint swelling and Reports stiffness Skin/Breast Reports erythema and Reports rash Physical Exam Vital Signs: Last Vital Signs Temp 97.2 F 01/27/23 12:57 Pulse 71 01/27/23 12:57 BP 118/68 01/27/23 12:57 Pulse Ox 96 01/27/23 12:57 Oxygen Delivery Method Room Air 01/27/23 12:57 BMI result Body Mass Index 33.5 Const General: cooperative and healthy appearing Nutritional Appearance: obese Orientation/consciousness: patient oriented x3 Limitations: no limitations HEENT Head: Yes normocephalic and Yes atraumatic Mouth: moist mucous membranes Resp Effort & Inspection: normal respiratory effort and able to speak in complete sentences Skin Other: Neuro General: patient oriented x3 Extrem Other: Mild right wrist swelling and pain with minimal flexion and extension Second through 5th MCP tenderness No PIP or DIP tenderness or swelling Left wrist tenderness and pain with full flexion and extension Few tender 2nd through 5th MCP tenderness. Nontender PIPs or DIPs Bilateral ankle tenderness Bilateral diffuse MTP tenderness Results Reviewed Results Reviewed: Labs 01/2022? Urinalysis With trace protein and trace bilirubin Protein/creatinine ratio normal SUAD 1-160 homogeneous CMP unremarkable SSA +++ DsDNA/Scl 70/Rangel/PLANT BIOLOGY PROFESSOR /RF/CCP all -ve C4/C3 normal Hep C antibody/HepB core antibody IgM/HbS Ag/negative QuantiFERON negative Free T4 normal? ?TSH 7.99 MRI L-spine 04/2021 Impression multilevel spondylitic changes and focal disc protrusion at L3-L4 contacts the trend sending right L4 nerve root in the lateral recess without definite displacement DEXA 12/2018? L-spine T-score -1.2? Mean proximal fever -0.5? Mean femur neck -0.9 SI joint x-rays 10/2016? Findings the SI joints are intact with mild degenerative changes bilaterally.? Upper sacrum arcuate line are preserved.? Lower sacrum is obscured.? On the lateral view of the sacral coccyx no fracture or malalignment is seen.? Soft tissues unremarkable.? No radiopaque foreign bodies or soft tissue gas Assessment & Plan Assessment & Plan (1) Psoriatic arthritis: Comment: Per patient onset around 2003 Prednisone for about 10 years Could not tolerate methotrexate Humira was not effective Hydroxychloroquine throughout Remicade at 5 mgs/kg every 8 weeks started around 2015. DC 12/14 ineffective. +ve infliximab antibody Enbrel 01/14 Unclear when Arava was started. But she only takes 10 mg twice a week, higher doses cause diarrhea Code(s): L40.50 - Arthropathic psoriasis, unspecified Plan: 57-year-old female with a past medical history of psoriatic spondylitis returns for follow-up. on Enbrel 50 mg weekly. Continues to have few swollen tender joints. Patient developed a non itchy rash on her right forearm. Discoid lupus versus psoriasis versus other causes. Will Prescribe a prednisone taper Continue Arava 10 mg twice a week Continue hydroxychloroquine 200 mg Twice daily Follow-up in 3 weeks (2) Rash: Code(s): R21 - Rash and other nonspecific skin eruption Plan: Unclear cause. Psoriasis rash versus discoid lupus. Will prescribe a prednisone taper. Continue Enbrel. If no improvement patient might need a biopsy (3) Sjogren syndrome with keratoconjunctivitis: Code(s): M35.01 - Sjogren syndrome with keratoconjunctivitis Plan: SUAD 1-160 homogeneous. +++SSa. Dry eyes and dry mouth. Continue Restasis Continue Biotene mouthwash and Biotene toothpaste. (4) Chronic low back pain: Code(s): M54.50 - Low back pain, unspecified; G89.29 - Other chronic pain Qualifiers: Back pain laterality: right Plan: Was evaluated by Pain Management and a therapeutic procedure trial was suggested but patient canceled it. Continue to follow-up with pain management (5) Osteoporosis with fracture: Comment: Bilateral ankle fracture while walking down the stairs. Around 10 years of chronic corticosteroid exposure DEXA 12/2018? L-spine T-score -1.2? Mean proximal fever -0.5? Mean femur neck -0.9 DEXA 06/2022 L-spine T-score -0.4 Left femur neck-0.5 Left femur total -0.5 Took alendronate for about 6 months stopped due to GI intolerance Needle phobic could not use Tymlos Took 9 out of 12 doses of Evenity, last dose 11/2021 Code(s): M80.80XA - Other osteoporosis with current pathological fracture, unspecified site, initial encounter for fracture Qualifiers: Osteoporosis type: age-related Site of pathological fracture: tibia and fibula Encounter type: initial encounter Laterality: unspecified laterality Qualified Code(s): M80.069A - Age-related osteoporosis with current pathological fracture, unspecified lower leg, initial encounter for fracture Plan: Patient broke both her ankles were walking down the stairs in November of 2018 s/p ORIF. DEXA scan showed osteopenia -1.2 but due to long history of corticosteroid exposure she was deemed to have osteoporosis. Patient received Evenity for 9 doses with some improvement of her T-score. Today we discussed consolidation with Reclast. Patient agreed to proceed. Reclast has been approved. To be scheduled (6) Long-term use of hydroxychloroquine: Code(s): Z79.899 - Other residential (current) drug therapy Plan: Patient was not able to find an lpn per diem for hydroxychloroquine monitoring. I advised patient to call her insurance company and look for ophthalmologists in the area who except her insurance Plan I spent 30 minutes reviewing patient's chart, evaluating patient, ordering diagnostic workup, counseling patient and documenting in the chart Medications: Refilled prednisone Take 3 tabs by mouth once daily with breakfast for 1 week then 2 tabs daily for 1 week then 1 tab daily for 1 week then stop 42 tabs 0RF Coding Level of Care Code Est Pt Level 4 (54712) Diagnoses Psoriatic arthritis L40.50 Rash R21 Sjogren syndrome with keratoconjunctivitis M35.01 Chronic low back pain M54.50; G89.29 Back pain laterality: right Osteoporosis with fracture M80.069A Osteoporosis type: age-related Site of pathological fracture: tibia and fibula Encounter type: initial encounter Laterality: unspecified laterality Long-term use of hydroxychloroquine Z79.899
[2023-01-27 12:57] VITALS: BP 118/68; PULSE 71; TEMP 36.2; O2SAT 96; BMI 33.5
== END 2023-01-27 13:24 | disposition home or self-care (01) ==
LOC: HO.RHE 12:56
PROVIDERS: PCP Nurse Practitioner Family; Visit Provider Student in an Organized Health Care Education/Training Program
DX: L40.50 Arthropathic psoriasis, unspecified (principal); R21 Rash and other nonspecific skin eruption; M35.01 Sjogren syndrome with keratoconjunctivitis; M54.50 Low back pain, unspecified; G89.29 Other chronic pain; M80.0 Age-related osteoporosis with current pathological fracture; Z79.899 Other long term (current) drug therapy
CPT/HCPCS: 99214

== ENCOUNTER 2023-01-30 15:00 | Outpatient (AMB) | payer MEDICARE, MEDICAID, SELFPAY ==
[2023-01-30 15:09] VITALS: BP 126/70; PULSE 71; RESP 12; TEMP 36.4; O2SAT 97; BMI 33.3
--- NOTE | 2023-01-30 15:09 | A.OFFPC_ITS ---
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: No Accompanied by: Self / Same As Patient Allergies sulfa Allergy (Mild, Uncoded 01/30/23 15:21) Hives Medication List - Last Reconciled 01/30/23 by Sunni Browne CNP biotin 10 mg PO DAILY 30 days buprenorphine-naloxone 2-0.5 mg (Suboxone) 1 film sublingual TID cevimeline 1 cap PO TID cholecalciferol (vitamin D3) (Vitamin D3) 125 mcg PO DAILY cyanocobalamin (vitamin B-12) (Vitamin B-12) 2,500 mcg sublingual DAILY 30 days diclofenac epolamine 1.3% (Flector) 1 patch transdermal .qd duloxetine (Cymbalta) 60 mg PO DAILY 30 days ergocalciferol (vitamin D2) units PO etanercept (Enbrel SureClick) 50 mg subcut QWEEK ferrous sulfate 325 mg PO DAILY 30 days gabapentin 300 mg PO TID 30 days hydroxychloroquine 200 mg PO BID hydroxyzine HCl 25 mg PO BEDTIME PRN leflunomide (Arava) 10 mg PO BID-TID levothyroxine 125 mcg PO DAILY 30 days lorazepam 0.5 mg PO DAILY PRN metoprolol succinate ER 25 mg PO BID 30 days naloxone 4 mg/actuation (Narcan) 4 mg intranasal Q2M PRN omega 3-xim-vfw-fish oil 200-300-1,000 mg 1 cap PO DAILY 30 days omeprazole 20 mg PO DAILY 30 days ondansetron HCl 4 mg PO Q6H PRN prednisone Take 3 tabs by mouth once daily with breakfast for 1 week then 2 tabs daily for 1 week then 1 tab daily for 1 week then stop tizanidine 2 mg PO Q8H PRN 30 days trazodone 150 mg PO BEDTIME PRN 30 days zinc sulfate (Orazinc) 50 mg PO DAILY 30 days zoledronic rpkb-yxogxovx-utslq 5 mg/100 mL (Reclast) 5 ea IV .12 months Tobacco use date assessed: 01/30/23 Dental Screening Dental Screen Date: 01/30/23 Did you have a dental visit in the last 12 months?: Yes Did you have a dental problem in the last 6 months where you did not have access to dental care?: No Was dental information given to patient?: Patient has dentist HPI HPI Comments History of Present Illness Details 57-year-old female presents for health aintenance follow-up. She has history of hypertension, hypothyroidism, lupus, psoriatic arthritis, sjogren syndrome with keratoconjunctivits, chronic low back pain, and osteoporosis. She is followed by Rheumatology. She reports non itchy rash with associated swelling to her right forearm, was evaluated by rail track layer, and was inform may be related to psoriatic arthritis, and was placed on prednisone. She notes the rash started a week after she started subcutaneous Enbrel that was substituted for Humira. She has a f/u appointment with rheumatology later this month. Review of rheumatology note: Non itchy rash to right forearm; Discoid lupus versus psoriasis versus other cause; prednisone taper ordered. She request vitamin-D level test. [facility] Medical History (Updated 01/30/23 @ 16:02 by Sunni Browne CNP) Chronic low back pain Discoid lupus Thyroid disease Raynaud disease Neuropathy Arthritis Anemia Philipp thyroiditis, fibrous variant Polyarticular arthritis Hypertension Osteopenia of both ankles Surgical History History of ankle surgery History of tonsillectomy History of knee replacement Family History Paternal Grandfather Rheumatoid arthritis Lupus Father ALS (amyotrophic lateral sclerosis) Mother Macular degeneration Social History Household Members: None Housing: Apartment Alcohol intake: never Patient Tobacco Use Status: Never used Tobacco e-Cigarette/Vaping Use: Never Used service: No Current occupational status: disabled Cognitive needs: No Hearing needs: No Vision needs: No Questionnaire Thrive Questionnaire Date Thrive assessed: 07/15/22 LATRICIA-7 AMB Questionnaire LATRICIA-7 Date LATRICIA - 7 assessed: 07/15/22 Source: Developed by Drs. Corby Peter, Porsha Mata, Jose Harrell and colleagues, with an educational fausto from [employer]. Review of Systems Const Details: Const Denies chills, Denies fatigue, Denies fever(s), Denies headache(s) and Denies weakness ENT Denies dizziness and Denies headache(s) Card Denies chest pain, Denies lightheadedness, Denies dyspnea and Denies other (Palpitations) Resp Denies cough, Denies dyspnea, Denies wheezing and Denies other ( shortness of breath) GI Denies abdominal pain, Denies melena, Denies hematochezia, Denies change in bowel habits, Denies dyspepsia and Denies nausea Denies hematuria and Denies dysuria Musc Denies abnormal gait, Denies myalgias, Denies arthralgias, Denies numbness and Denies tingling Skin/Breast Denies rash, Denies unusual bruising and Denies wounds Neuro Denies abnormal gait, Denies dizziness, Denies headache(s), Denies memory loss, Denies numbness, Denies Sensory deficit (Neuro), Denies tingling and Denies weakness Psych Denies anxiety, Denies depression, Denies memory loss Endo Denies cold intolerance, Denies fatigue, Denies heat intolerance, Denies p olydipsia and Denies polyuria Aller/Immun Denies wheezing Physical exam (Primary Care) Vital Signs: Last Vital Signs Temp 97.6 F 01/30/23 15:09 Pulse 71 01/30/23 15:09 Resp 12 01/30/23 15:09 BP 126/70 01/30/23 15:09 Pulse Ox 97 01/30/23 15:09 Oxygen Delivery Method Room Air 01/30/23 15:09 BMI result Body Mass Index 33.3 Tobacco/Smoking Status: Tobacco use Status Tobacco use date assessed 01/30/23 01/30/23 15:19 Patient Tobacco Use Status Never used Tobacco 01/30/23 15:19 e-Cigarette/Vaping Use Never Used 01/30/23 15:19 Thrive Assessment: Date of Thrive Assessment Date Thrive assessed 07/15/22 01/30/23 15:19 Const Other: General: no acute distress and well developed Nutritional Appearance: well nourished Orientation/consciousness: patient oriented x3 HENMT Head: Yes normocephalic and Yes atraumatic Eyes General: appearance normal, both eyes and all related structures Pupils: Equal, round and reactive pupils present EOM: EOMs intact bilaterally Resp Effort & Inspection: normal respiratory effort Auscultation: clear to auscultation bilaterally Cardio Rate: regular rate Rhythm: regular rhythm Heart sounds: S1 normal heart sound present, S2 normal heart sound present, no gallops, no murmurs and no rubs GI Palpation (GI): No Abdominal aortic bruit present, Soft to palpation, nontender, No hepatosplenomegaly present and No Rebound tenderness present Auscultation: normal bowel sounds General: Yes no CVA tenderness Back/Spine/Pelvis Back: no CVA tenderness Cervical Spine: cervical ROM normal and No Cervical spine tenderness Thoracic/Lumbar Spine: thoraco-lumbar ROM normal, No pain with thoraco-lumbar ROM, No thoracic spinal tenderness and lumbar spinal tenderness Extrem General: Yes normal to inspection, mild edema to right wrist and No calf tenderness Skin General: warm and dry. Normal skin color. Normal skin turgor Lesions: no lesions Rashes: Red patches of rash noted to the right forearm Trauma: no lacerations or abrasions Wounds: no wounds Nails: normal Neuro General: patient oriented x3, gait normal and no focal neuro deficit Cranial nerves: Yes Equal, round and reactive pupils present Cognition (Neuro): normal cognition Gait exam (Neuro): Normal gait present Sensory Exam: No Sensory deficit (Neuro) Psych Appearance: grossly normal Affect: normal affect Attitude: cooperative Thought process: Normal thought process present Assessment and Plan Assessment & Plan (1) Rash: Code(s): R21 - Rash and other nonspecific skin eruption Plan: Red patches of rash noted to the right forearm Continue to take prednisone as prescribed Follow-up with Rheumatology as planned Return with worsening or new symptoms Verbalized understanding and agreed with treatment plan (2) Joint swelling: Code(s): M25.40 - Effusion, unspecified joint Plan: Mild swelling to right wrist Plan as above (3) Hypertension: Code(s): I10 - Essential (primary) hypertension Qualifiers: Hypertension type: primary hypertension Qualified Code(s): I10 - Essential (primary) hypertension Plan: Blood pressure is controlled, 126/70, within goal of less than 140/90 Continue with current treatment regimen Low-sodium diet encouraged Follow-up in 1 month for complete physical exam Return sooner with symptoms or concerns Verbalized understanding and agreed with treatment plan. (4) Chronic low back pain: Code(s): M54.50 - Low back pain, unspecified; G89.29 - Other chronic pain Qualifiers: Back pain laterality: midline Plan: Lumbar spine tenderness to palpation Continue with current treatment regimen Warm/cool compresses encouraged Follow-up with worsening or new symptoms Verbalized understanding and agreed with treatment plan. (5) Hypothyroidism: Code(s): E03.9 - Hypothyroidism, unspecified Plan: Recent TSH level is normal Levothyroxine as prescribed Will continue to monitor Verbalized understanding and agreed with treatment plan. Orders: Orders Vitamin D 25-OH Total Today M80.80XA - Other osteoporosis with current pathological fracture, unspecified site, initial encounter for fracture Coding Level of Care Code Est Pt Level 3 (85158) Diagnoses Rash R21 Joint swelling M25.40 Primary hypertension I10 Hypertension type: primary hypertension Chronic low back pain M54.50; G89.29 Back pain laterality: midline Hypothyroidism E03.9
== END 2023-01-30 15:53 | disposition home or self-care (01) ==
PROVIDERS: PCP Nurse Practitioner Family; Visit Provider Nurse Practitioner Family
DX: R21 Rash and other nonspecific skin eruption (principal); M25.40 Effusion, unspecified joint; I10 Essential (primary) hypertension; E03.9 Hypothyroidism, unspecified; M54.50 Low back pain, unspecified; G89.29 Other chronic pain
CPT/HCPCS: 99213

== ENCOUNTER 2023-02-13 14:40 | Outpatient (AMB) | payer MEDICARE, MEDICAID, SELFPAY ==
[2023-02-13 14:43] VITALS: BP 126/70; PULSE 97; TEMP 36.6; O2SAT 92; BMI 33.5
--- NOTE | 2023-02-13 14:43 | A.OFFVIS_ITS ---
Intake Vital Signs 3 02/13/23 14:43 Height 5 ft 5 in Weight 201 lb 4.513 oz BMI 33.5 BP 126/70 Blood Pressure Location Rt brachial Position Sitting Pulse 97 Pulse Source Pulse Oximeter Temp 97.8 F Temp Source Skin Pulse Oximetry (%) 92 Intake Visit Reasons: PsA Intake Note: Pt seen today for follow up. Still taking steroids, states the rash is improving. Lining Printer Required: No Accompanied by: Self / Same As Patient Allergies sulfa Allergy (Mild, Uncoded 02/13/23 14:47) Hives Medication List - Last Reconciled 02/13/23 by Sunni Samuels MD biotin 10 mg PO DAILY 30 days buprenorphine-naloxone 2-0.5 mg (Suboxone) 1 film sublingual TID cevimeline 1 cap PO TID cholecalciferol (vitamin D3) (Vitamin D3) 125 mcg PO DAILY cyanocobalamin (vitamin B-12) (Vitamin B-12) 2,500 mcg sublingual DAILY 30 days diclofenac epolamine 1.3% (Flector) 1 patch transdermal .qd duloxetine (Cymbalta) 60 mg PO DAILY 30 days ergocalciferol (vitamin D2) units PO etanercept (Enbrel SureClick) 50 mg subcut QWEEK ferrous sulfate 325 mg PO DAILY 30 days gabapentin 300 mg PO TID 30 days hydroxychloroquine 200 mg PO BID hydroxyzine HCl 25 mg PO BEDTIME PRN leflunomide (Arava) 10 mg PO BID-TID levothyroxine 125 mcg PO DAILY 30 days lorazepam 0.5 mg PO DAILY PRN metoprolol succinate ER 25 mg PO BID 30 days naloxone 4 mg/actuation (Narcan) 4 mg intranasal Q2M PRN omega 6-cmp-ejf-fish oil 200-300-1,000 mg 1 cap PO DAILY 30 days omeprazole 20 mg PO DAILY 30 days ondansetron HCl 4 mg PO Q6H PRN prednisone Take 3 tabs by mouth once daily with breakfast for 1 week then 2 tabs daily for 1 week then 1 tab daily for 1 week then stop tizanidine 2 mg PO Q8H PRN 30 days trazodone 150 mg PO BEDTIME PRN 30 days zinc sulfate (Orazinc) 50 mg PO DAILY 30 days zoledronic ytpb-nthrpayd-uherj 5 mg/100 mL (Reclast) 5 ea IV .12 months HPI HPI Comments 2 History of Present Illness0 Details 57-year-old female with psoriatic arthri tis, Sjogren's, discoid lupus presents for follow-up. On Enbrel. Patient took prednisone as prescribed. States that the rash on her right arm is about the same. Continues to have pain in both wrists. Initial history: This is a 56-year-old female with a past medical history of psoriatic spondylitis, Sjogren's who presents as a new patient. She recently moved from [facility]. 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 Afterwards patient had multiple symptoms including dry eyes and dry mouth, Raynaud's and low back pain as well as peripheral arthritis. She was on multiple DMARDs for her arthritis including methotrexate which she could not tolerate, she was on Arava but per patient it caused diarrhea so now she takes 10 mg twice a week. She has been on hydroxychloroquine all through. Follows up regularly with Ophthalmology. She was started on Remicade 3-4 years ago 5 mg/kg every 8 weeks with significant improvement in her overall symptoms especially her back pain. Patient's last dose of Remicade was in November of 2021. Patient states that feels significant worsening of her overall joint pain especially her back now that she has not received Remicade for 8 months. Continues to have dry eyes and dry mouth. Uses Restasis regularly. Uses Salagen twice daily for dry mouth without significant relief. Continues to use Biotene mouthwash and Biotene toothpaste. In 2018 patient fell down the stairs and broke both her ankles does fractures were thought to be osteoporotic in nature. She had ORIF, she then took alendronate for a few months but could not tolerated due to GI upset. She could not do Tymlos as patient was needle phobic. Patient received Evenity 02/03 doses. Last dose was November of 2021. Patient states that food gets stuck almost every meal and she has to drink some water to get food to pass. [facility] Medical History Chronic low back pain Discoid lupus Thyroid disease Raynaud disease Neuropathy Arthritis Anemia Philipp thyroiditis, fibrous variant Polyarticular arthritis Hypertension Osteopenia of both ankles Surgical History History of ankle surgery History of tonsillectomy History of knee replacement Family History Paternal Grandfather Rheumatoid arthritis Lupus Father ALS (amyotrophic lateral sclerosis) Mother Macular degeneration Social History Household Members: None Housing: Apartment Alcohol intake: never Patient Tobacco Use Status: Never used Tobacco e-Cigarette/Vaping Use: Never Used service: No Current occupational status: disabled Cognitive needs: No Hearing needs: No Vision needs: No Review of Systems Musc Reports arthralgias, Reports joint swelling and Reports stiffness Skin/Breast Reports erythema and Reports rash Physical Exam Vital Signs: Last Vital Signs Temp 97.8 F 02/13/23 14:43 Pulse 97 02/13/23 14:43 BP 126/70 02/13/23 14:43 Pulse Ox 92 02/13/23 14:43 BMI result Body Mass Index 33.5 Const General: cooperative and healthy appearing Nutritional Appearance: obese Orientation/consciousness: patient oriented x3 Limitations: no limitations HEENT Head: Yes normocephalic and Yes atraumatic Mouth: moist mucous membranes Resp Effort & Inspection: normal respiratory effort and able to speak in complete sentences Skin Other: rash on 01/27/23 rash 02/13/2023 Neuro General: patient oriented x3 Extrem Other: Mild right wrist swelling and pain with minimal flexion and extension No MCP tenderness or swelling No PIP or DIP tenderness or swelling Left wrist tenderness and pain with full flexion and extension Nontender MCPs, PIPs or DIPs Left ankle tenderness No MTP tenderness today, mild swelling of right 4th toe Results Reviewed Results Reviewed: Labs 01/2022? Urinalysis With trace protein and trace bilirubin Protein/creatinine ratio normal SUAD 1-160 homogeneous CMP unremarkable SSA +++ DsDNA/Scl 70/Rangel/MOTEL OPERATOR /RF/CCP all -ve C4/C3 normal Hep C antibody/HepB core antibody IgM/HbS Ag/negative QuantiFERON negative Free T4 normal? ?TSH 7.99 MRI L-spine 04/2021 Impression multilevel spondylitic changes and focal disc protrusion at L3-L4 contacts the trend sending right L4 nerve root in the lateral recess without definite displacement DEXA 12/2018? L-spine T-score -1.2? Mean proximal fever -0.5? Mean femur neck -0.9 SI joint x-rays 10/2016? Findings the SI joints are intact with mild degenerative changes bilaterally.? Upper sacrum arcuate line are preserved.? Lower sacrum is obscured.? On the lateral view of the sacral coccyx no fracture or malalignment is seen.? Soft tissues unremarkable.? No radiopaque foreign bodies or soft tissue gas Assessment & Plan Assessment & Plan (1) Psoriatic arthritis: Comment: Per patient onset around 2003 Prednisone for about 10 years Could not tolerate methotrexate Humira was not effective Hydroxychloroquine throughout Remicade at 5 mgs/kg every 8 weeks started around 2015. DC 12/14 ineffective. +ve infliximab antibody Enbrel 01/14 Unclear when Arava was started. But she only takes 10 mg twice a week, higher doses cause diarrhea Code(s): L40.50 - Arthropathic psoriasis, unspecified Plan: 57-year-old female with a past medical history of Sjogren's, discoid lupus & psoriatic spondylitis returns for follow-up. on Enbrel 50 mg weekly. Patient's rash on her right arm is worsening despite prednisone course. Rash started after soon half Enbrel was started. Discontinue Enbrel. will watch patient off DMARDs. Prednisone would be started as mentioned below Continue Arava 10 mg twice a week Continue hydroxychloroquine 200 mg Twice daily Follow-up in 4 weeks Labs before next visit (2) Rash: Code(s): R21 - Rash and other nonspecific skin eruption Plan: Unclear cause. ?Drug reaction. Patient stated that she had similar rashes when she was initially diagnosed with discoid lupus, the rash was on the back of her neck. The rash started soon after Enbrel was started. Will discontinue Enbrel. Start prednisone 40 mg daily for 2 weeks then taper to 30 mg daily. Advised patient to call the office a let us know how the rash is in 2 weeks. Referred patient to Dermatology for a skin biopsy (3) Sjogren syndrome with keratoconjunctivitis: Code(s): M35.01 - Sjogren syndrome with keratoconjunctivitis Plan: SUAD 1-160 homogeneous. +++SSa. Dry eyes and dry mouth. Continue Restasis Continue Biotene mouthwash and Biotene toothpaste. (4) Chronic low back pain: Code(s): M54.50 - Low back pain, unspecified; G89.29 - Other chronic pain Qualifiers: Back pain laterality: midline Sciatica presence: unspecified whether sciatica present Qualified Code(s): M54.50 - Low back pain, unspecified; G89.29 - Other chronic pain Plan: Was evaluated by Pain Management and a therapeutic procedure trial was suggested but patient canceled it. Continue to follow-up with pain management (5) Osteoporosis with fracture: Comment: Bilateral ankle fracture while walking down the stairs. Around 10 years of chronic corticosteroid exposure DEXA 12/2018? L-spine T-score -1.2? Mean proximal fever -0.5? Mean femur neck -0.9 DEXA 06/2022 L-spine T-score -0.4 Left femur neck-0.5 Left femur total -0.5 Took alendronate for about 6 months stopped due to GI intolerance Needle phobic could not use Tymlos Took 9 out of 12 doses of Evenity, last dose 11/2021 Code(s): M80.80XA - Other osteoporosis with current pathological fracture, unspecified site, initial encounter for fracture Qualifiers: Encounter type: initial encounter Laterality: unspecified laterality O steoporosis type: age-related Site of pathological fracture: tibia and fibula Qualified Code(s): M80.069A - Age-related osteoporosis with current pathological fracture, unspecified lower leg, initial encounter for fracture Plan: Patient broke both her ankles were walking down the stairs in November of 2018 s/p ORIF. DEXA scan showed osteopenia -1.2 but due to long history of corticosteroid exposure she was deemed to have osteoporosis. Patient received Evenity for 9 doses with some improvement of her T-score. Patient agreed to start Reclast. It was approved. Will schedule it (6) Long-term use of hydroxychloroquine: Code(s): Z79.899 - Other intermediate accountant (current) drug therapy Plan: Patient was not able to find an envelope folding machine adjuster for hydroxychloroquine monitoring. I advised patient to call her insurance company and look for ophthalmologists in the area who accept her insurance Plan I spent 30 minutes reviewing patient's chart, evaluating patient, ordering diagnostic workup, counseling patient and documenting in the chart Orders: Orders 2 Comprehensive Met. Panel 4 Weeks L40.50 - Arthropathic psoriasis, unspecified Complete Blood Count Auto Diff 4 Weeks L40.50 - Arthropathic psoriasis, unspecified C Reactive Protein 4 Weeks L40.50 - Arthropathic psoriasis, unspecified Erythrocyte Sedimentation Rate 4 Weeks L40.50 - Arthropathic psoriasis, unspecified Referrals 2 Dermatology Referral R21 - Rash and other nonspecific skin eruption Medications: New 2 prednisone Take 4 tabs by mouth once daily with breakfast for 2 weeks then 3 stay on 3 tabs daily 100 tabs 1RF Discontinued 2 etanercept (Enbrel SureClick) Discontinued Reason: Doctor's Order 50 mg subcut QWEEK 4 mL 2RF prednisone Discontinued Reason: Doctor's Order Take 3 tabs by mouth once daily with breakfast for 1 week then 2 tabs daily for 1 week then 1 tab daily for 1 week then stop 42 tabs 0RF Coding Level of Care Code Est Pt Level 5 (23696) Diagnoses Psoriatic arthritis L40.50 Rash R21 Sjogren syndrome with keratoconjunctivitis M35.01 Chronic midline low back pain, unspecified whether sciatica present M54.50; G89.29 Back pain laterality: midline Sciatica presence: unspecified whether sciatica present Pathological fracture of both tibia and fibula due to age-related osteoporosis, unspecified laterality, initial encounter M80.391F Encounter type: initial encounter Laterality: unspecified laterality Osteoporosis type: age-related Site of pathological fracture: tibia and fibula Long-term use of hydroxychloroquine Z79.899
== END 2023-02-13 15:10 | disposition home or self-care (01) ==
PROVIDERS: PCP Nurse Practitioner Family; Visit Provider Student in an Organized Health Care Education/Training Program
DX: L40.50 Arthropathic psoriasis, unspecified (principal); R21 Rash and other nonspecific skin eruption; M35.01 Sjogren syndrome with keratoconjunctivitis; M54.50 Low back pain, unspecified; G89.29 Other chronic pain; M80.0 Age-related osteoporosis with current pathological fracture; Z79.899 Other long term (current) drug therapy
CPT/HCPCS: 99214

== ENCOUNTER → 2023-02-13 14:40 | Outpatient (BNVA) | payer MEDICARE, MEDICAID, SELFPAY | PROVIDERS: PCP Nurse Practitioner Family; Visit Provider Student in an Organized Health Care Education/Training Program ==

== ENCOUNTER 2023-02-19 15:23 | Outpatient (AMB) | payer MEDICARE, MEDICAID, SELFPAY ==
--- NOTE | 2023-02-19 15:28 | A.OFFVIS_ITS ---
Intake Vital Signs 02/19/23 15:29 BP 116/76 Blood Pressure Location Lt radial Position Sitting Pulse 80 Pulse Source Pulse Oximeter Pulse Oximetry (%) 98 Oxygen Delivery Method Room Air Intake Visit Reasons: mat visit Intake Note: the patient presents for a mat visit Sprinkler Repair Technician Required: No Allergies sulfa Allergy (Mild, Uncoded 02/24/23 11:35) Hives Do you need a note to return to daycare/school/sports/work: No HPI mat visit HPI Details Patient presents for follow up Has rash/wounds on right forearm Stopped enbrel ? reaction Doing well with suboxone PFSH Medical History Chronic low back pain Discoid lupus Thyroid disease Raynaud disease Neuropathy Arthritis Anemia Philipp thyroiditis, fibrous variant Polyarticular arthritis Hypertension Osteopenia of both ankles Surgical History History of ankle surgery History of tonsillectomy History of knee replacement Family History Paternal Grandfather Rheumatoid arthritis Lupus Father ALS (amyotrophic lateral sclerosis) Mother Macular degeneration Social History Household Members: None Housing: Apartment Alcohol intake: never Patient Tobacco Use Status: Never used Tobacco e-Cigarette/Vaping Use: Never Used service: No Current occupational status: disabled Cognitive needs: No Hearing needs: No Vision needs: No Review of Systems Const Reports as per HPI and Reports no additional complaints Physical Exam Vital Signs: Last Vital Signs Pulse 80 02/19/23 15:29 BP 116/76 02/19/23 15:29 Pulse Ox 98 02/19/23 15:29 Oxygen Delivery Method Room Air 02/19/23 15:29 Const General: cooperative, no acute distress and alert Nutritional Appearance: well nourished Orientation/consciousness: patient oriented x3 Limitations: no limitations Neuro General: patient oriented x3 Psych Appearance: grossly normal Mental Status: mental status grossly normal Speech and movement: Normal speech and movement present Affect: normal affect Attitude: cooperative Thought process: Normal thought process present Thought content: Normal thought content present Insight: Good insight present (Psych) Judgement: Good judgement present (Psych) Assessment & Plan Assessment & Plan (1) Opioid dependence: Code(s): F11.20 - Opioid dependence, uncomplicated Qualifiers: Substance use status: uncomplicated Qualified Code(s): F11.20 - Opioid dependence, uncomplicated Plan: * continue suboxone at current dose * follow up 2 months Medications: Refilled buprenorphine-naloxone 2-0.5 mg (Suboxone) 1 film sublingual TID 90 ea 1RF Coding Level of Care Code Est Pt Level 3 (01032) Diagnoses Uncomplicated opioid dependence F11.20 Substance use status: uncomplicated
[2023-02-19 15:29] VITALS: BP 116/76; PULSE 80; O2SAT 98
== END 2023-02-19 15:54 | disposition home or self-care (01) ==
LOC: HO.HCC 15:23
PROVIDERS: PCP Nurse Practitioner Family; Visit Provider Nurse Practitioner Psychiatric/Mental Health
DX: F11.20 Opioid dependence, uncomplicated (principal)
CPT/HCPCS: 99213

== ENCOUNTER → 2023-02-19 15:23 | Outpatient (BNVA) | payer MEDICARE, MEDICAID, SELFPAY | PROVIDERS: PCP Nurse Practitioner Family; Visit Provider Nurse Practitioner Psychiatric/Mental Health | DX: F11.20 Opioid dependence, uncomplicated (principal) | CPT/HCPCS: 99212 ==

== ENCOUNTER 2023-02-24 11:24 | Outpatient (REF) | payer MEDICARE, MEDICAID, SELFPAY | END 2023-02-24 11:25 | disposition home or self-care (01) | LOC: HO.LNP 11:24 | PROVIDERS: PCP Nurse Practitioner Family; Visit Provider Surgery | DX: L98.499 Non-pressure chronic ulcer of skin of other sites with unspecified severity (principal) | CPT/HCPCS: 11104; 88305; 88312; 99202 ==

== ENCOUNTER 2023-02-24 11:24 | Outpatient (AMB) | payer MEDICARE, MEDICAID, SELFPAY ==
--- NOTE | 2023-02-24 11:26 | MHC.OFFVIS ---
Intake Vital Signs 02/24/23 11:36 Height 5 ft 5 in Weight 203 lb 6 oz BMI 33.8 BP 170/81 H Blood Pressure Location Rt radial Position Sitting Pulse 77 Intake Visit Reasons: rash, consider skin biopsy Intake Note: Patient is seen in office for evaluation and treatment of a skin rash, possible skin bx. Patient c/o: onset 2 months, started after medication Embro unsure if china'ts the cause, admits to right arm rash, denies pain, itching, discharge Buckshot Swage Operator Required: No Accompanied by: Self / Same As Patient Allergies sulfa Allergy (Mild, Uncoded 02/24/23 11:35) Hives Medication List - Last Reconciled 02/24/23 by Tejas Zazueta MD biotin 10 mg PO DAILY 30 days buprenorphine-naloxone 2-0.5 mg (Suboxone) 1 film sublingual TID cevimeline 1 cap PO TID cholecalciferol (vitamin D3) (Vitamin D3) 125 mcg PO DAILY cyanocobalamin (vitamin B-12) (Vitamin B-12) 2,500 mcg sublingual DAILY 30 days diclofenac epolamine 1.3% (Flector) 1 patch transdermal .qd duloxetine (Cymbalta) 60 mg PO DAILY 30 days ergocalciferol (vitamin D2) units PO ferrous sulfate 325 mg PO DAILY 30 days gabapentin 300 mg PO TID 30 days hydroxychloroquine 200 mg PO BID hydroxyzine HCl 25 mg PO BEDTIME PRN leflunomide (Arava) 10 mg PO BID-TID levothyroxine 125 mcg PO DAILY 30 days lorazepam 0.5 mg PO DAILY PRN metoprolol succinate ER 25 mg PO BID 30 days naloxone 4 mg/actuation (Narcan) 4 mg intranasal Q2M PRN omega 6-dkp-ofv-fish oil 200-300-1,000 mg 1 cap PO DAILY 30 days omeprazole 20 mg PO DAILY 30 days ondansetron HCl 4 mg PO Q6H PRN tizanidine 2 mg PO Q8H PRN 30 days trazodone 150 mg PO BEDTIME PRN 30 days zinc sulfate (Orazinc) 50 mg PO DAILY 30 days zoledronic ntxe-saxrmfbn-ikinx 5 mg/100 mL (Reclast) 5 ea IV .12 months HPI HPI Comments History of Present Illness Details 57-year-old female patient presenting with complaints of a right arm rash which is been present for approximately 2 months. The rash was initially thought to be due to starting Enbrel however she continues to have a rash despite stopping the medication. She mainly notes the rash involving the right forearm. She denies itching but does report bleeding with light touch of the lesions. She denies fever or chills. She has a history of lupus, Philipp's thyroiditis, Sjogren syndrome and hypertension. She presents today for possible skin biopsy of the rash. [facility] Medical History Chronic low back pain Discoid lupus Thyroid disease Raynaud disease Neuropathy Arthritis Anemia Philipp thyroiditis, fibrous variant Polyarticular arthritis Hypertension Osteopenia of both ankles Surgical History History of ankle surgery History of tonsillectomy History of knee replacement Family History Paternal Grandfather Rheumatoid arthritis Lupus Father ALS (amyotrophic lateral sclerosis) Mother Macular degeneration Social History Household Members: None Housing: Apartment Alcohol intake: never Patient Tobacco Use Status: Never used Tobacco e-Cigarette/Vaping Use: Never Used service: No Current occupational status: disabled Cognitive needs: No Hearing needs: No Vision needs: No Review of Systems Const All systems reviewed & are unremarkable except as noted in HPI and below Denies chills, Denies fever(s), Denies headache(s), Denies poor appetite and Denies weakness ENT Denies headache(s) Card Denies chest pain, Denies irregular heart rhythm, Denies palpitations and Denies dyspnea Resp Denies cough, Denies excessive phlegm production and Denies dyspnea GI Denies abdominal pain, Denies bloating, Denies change in bowel habits, Denies constipation, Denies heartburn, Denies diarrhea, Denies nausea and Denies vomiting Denies urinary frequency Musc Denies back pain, Denies muscle weakness and Denies numbness Skin/Breast Reports as per HPI, Reports bleeding lesions, Denies changing lesions, Denies pruritus, Reports rash and Denies unusual bruising Neuro Denies headache(s), Denies numbness, Denies paresthesias and Denies weakness Psych Denies anxiety and Denies depression Endo Denies palpitations Sina/Lymph Denies lymphadenopathy Physical Exam Vital Signs: Last Vital Signs Pulse 77 02/24/23 11:36 BP 170/81 H 02/24/23 11:36 BMI result Body Mass Index 33.8 Const General: cooperative and no acute distress Nutritional Appearance: well nourished Orientation/consciousness: patient oriented x3 Limitations: no limitations HEENT Head: Yes normocephalic and Yes atraumatic Ears: hearing grossly normal bilaterally Resp Effort & Inspection: normal respiratory effort, no audible wheezes, no cough and no respiratory distress Cardio Jugular venous distension: no JVD GI Inspection: Yes normal to inspection Skin Other: Warm, dry, rash located on the right arm with multiple crusted/red lesions which appear to have been scratched or scraped. Lesions mostly located in the forearm several lesions noted above the antecubital fossa. No pigmentation identified. Surrounding skin does show areas of redness. No fluctuance is palpable. Neuro General: patient oriented x3 Extrem General: Yes no clubbing, cyanosis or edema Office Procedures Punch Biopsy Details: Punch biopsy performed in the right upper arm above the antecubital fossa using a 4 mm punch biopsy. Punch biopsy performed by: Tejas Zazueta Informed consent given: Yes Time out checklist: patient, procedure, site marked/identified, positioning of patient, supplies available, allergies confirmed and team agrees on procedure Anesthesia: 1% lidocaine Preparation: betadine Biopsy performed (mm): 4 Hemostasis: suture ligature Patient tolerated procedure: well Complications: No Assessment & Plan Assessment & Plan (1) Rash: Code(s): R21 - Rash and other nonspecific skin eruption Plan 57-year-old female patient presenting with a skin rash in the right arm of unknown etiology. She presents today for skin biopsy. I reviewed the procedure, risks and alternatives, and she gives her consent for the procedure. Procedures performed today in the office and she tolerated this very well. She will return in 1 week for suture removal and review of pathology results. She is welcome to call sooner for any new concerns. Orders: Orders Surgical Today R21 - Rash and other nonspecific skin eruption Coding Level of Care Code New Pt Level 4 (26988) Diagnoses Rash R21
[2023-02-24 11:36] VITALS: BP 170/81; PULSE 77; BMI 33.8
== END 2023-02-24 11:55 | disposition home or self-care (01) ==
PROVIDERS: PCP Nurse Practitioner Family; Visit Provider Surgery
DX: R21 Rash and other nonspecific skin eruption (principal)
CPT/HCPCS: 11104; 99204

== ENCOUNTER 2023-03-03 13:42 | Outpatient (AMB) | payer MEDICARE, MEDICAID, SELFPAY ==
--- NOTE | 2023-03-03 13:53 | MHC.OFFVIS ---
Intake Vital Signs 03/03/23 14:10 Height 5 ft 5 in Weight 201 lb 8 oz BMI 33.5 BP 135/66 Blood Pressure Location Lt brachial Position Sitting Pulse 75 Intake Visit Reasons: 1 wk follow up rash, consider skin biopsy Intake Note: Patient is seen in office for one week follow up visit, skin bx results. Patient c/o: no changes since last visit Controls Engineer Required: No Accompanied by: Self / Same As Patient Allergies sulfa Allergy (Mild, Uncoded 03/03/23 14:10) Hives Medication List - Last Reconciled 03/03/23 by Tejas Zazueta MD biotin 10 mg PO DAILY 30 days buprenorphine-naloxone 2-0.5 mg (Suboxone) 1 film sublingual TID cevimeline 1 cap PO TID cholecalciferol (vitamin D3) (Vitamin D3) 125 mcg PO DAILY cyanocobalamin (vitamin B-12) (Vitamin B-12) 2,500 mcg sublingual DAILY 30 days diclofenac epolamine 1.3% (Flector) 1 patch transdermal .qd duloxetine (Cymbalta) 60 mg PO DAILY 30 days ergocalciferol (vitamin D2) units PO ferrous sulfate 325 mg PO DAILY 30 days gabapentin 300 mg PO TID 30 days hydroxychloroquine 200 mg PO BID hydroxyzine HCl 25 mg PO BEDTIME PRN leflunomide (Arava) 10 mg PO BID-TID levothyroxine 125 mcg PO DAILY 30 days lorazepam 0.5 mg PO DAILY PRN metoprolol succinate ER 25 mg PO BID 30 days naloxone 4 mg/actuation (Narcan) 4 mg intranasal Q2M PRN omega 3-mpd-kft-fish oil 200-300-1,000 mg 1 cap PO DAILY 30 days omeprazole 20 mg PO DAILY 30 days ondansetron HCl 4 mg PO Q6H PRN tizanidine 2 mg PO Q8H PRN 30 days trazodone 150 mg PO BEDTIME PRN 30 days zinc sulfate (Orazinc) 50 mg PO DAILY 30 days zoledronic eiaa-oyfrcdti-spzhx 5 mg/100 mL (Reclast) 5 ea IV .12 months HPI HPI Comments History of Present Illness Details Patient returns 1 week following skin biopsy of the right arm. Pathology revealed nonspecific findings but could be excoriation secondary to an underlying hypersensitivity reaction. Clinical correlation is recommended. She tolerated the procedure well and denies any ongoing symptoms. She continues to have the rash on her right arm. [facility] Medical History Chronic low back pain Discoid lupus Thyroid disease Raynaud disease Neuropathy Arthritis Anemia Philipp thyroiditis, fibrous variant Polyarticular arthritis Hypertension Osteopenia of both ankles Surgical History History of ankle surgery History of tonsillectomy History of knee replacement Family History Paternal Grandfather Rheumatoid arthritis Lupus Father ALS (amyotrophic lateral sclerosis) Mother Macular degeneration Social History Household Members: None Housing: Apartment Alcohol intake: never Patient Tobacco Use Status: Never used Tobacco e-Cigarette/Vaping Use: Never Used service: No Current occupational status: disabled Cognitive needs: No Hearing needs: No Vision needs: No Physical Exam Vital Signs: Last Vital Signs Pulse 75 03/03/23 14:10 BP 135/66 03/03/23 14:10 BMI result Body Mass Index 33.5 Const General: no acute distress Skin Other: Right arm biopsy site is clean, dry, and intact. Sutures were removed and the wounds found to be well healed. Assessment & Plan Assessment & Plan (1) Rash: Code(s): R21 - Rash and other nonspecific skin eruption Plan 57-year-old female patient with a skin rash of the right arm thought to initially be due to Enbrel but persisting despite stopping this medication. Skin biopsy revealed evidence of skin excoriation possibly due to a hypersensitivity reaction. She will follow-up with her care transition mgr and string top sealer for further evaluation. Coding Level of Care Code Global (80220) Diagnoses Rash R21
[2023-03-03 14:10] VITALS: BP 135/66; PULSE 75; BMI 33.5
== END 2023-03-03 14:24 | disposition home or self-care (01) ==
PROVIDERS: PCP Nurse Practitioner Family; Visit Provider Surgery
DX: R21 Rash and other nonspecific skin eruption (principal)
CPT/HCPCS: 99212

== ENCOUNTER → 2023-03-03 13:42 | Outpatient (BNVA) | payer MEDICARE, MEDICAID, SELFPAY | PROVIDERS: PCP Nurse Practitioner Family; Visit Provider Surgery | DX: R21 Rash and other nonspecific skin eruption (principal); Z98.890 Other specified postprocedural states | CPT/HCPCS: 99212 ==

== ENCOUNTER → 2023-03-09 11:19 | Outpatient (BNV) | payer MEDICARE, MEDICAID, SELFPAY | PROVIDERS: PCP Nurse Practitioner Family; Visit Provider Internal Medicine | DX: D50.0 Iron deficiency anemia secondary to blood loss (chronic) (principal) | CPT/HCPCS: 99204; 99213 ==

== ENCOUNTER 2023-03-24 13:53 | Outpatient (AMB) | payer MEDICARE, MEDICAID, SELFPAY ==
[2023-03-24 13:57] VITALS: BP 128/62; PULSE 71; TEMP 36.3; O2SAT 96; BMI 32.8
--- NOTE | 2023-03-24 13:57 | MHC.OFFVIS ---
Intake Vital Signs 03/24/23 13:57 Height 5 ft 5 in Weight 197 lb 5.019 oz BMI 32.8 BP 128/62 Blood Pressure Location Rt brachial Position Sitting Pulse 71 Pulse Source Pulse Oximeter Temp 97.3 F Temp Source Skin Pulse Oximetry (%) 96 Intake Visit Reasons: PSA Intake Note: Pt last seen 02/13/23, presents today for follow up and test results. Enbrel discontinued, continues with Plaquenil bid and Arava 2x a week. Pulmonary Function Technologist Required: No Accompanied by: Self / Same As Patient Allergies sulfa Allergy (Mild, Uncoded 03/24/23 14:03) Hives Medication List - Last Reconciled 03/24/23 by Sunni Samuels MD biotin 10 mg PO DAILY 30 days buprenorphine-naloxone 2-0.5 mg (Suboxone) 1 film sublingual TID cevimeline 1 cap PO TID cholecalciferol (vitamin D3) (Vitamin D3) 125 mcg PO DAILY cyanocobalamin (vitamin B-12) (Vitamin B-12) 2,500 mcg sublingual DAILY 30 days diclofenac epolamine 1.3% (Flector) 1 patch transdermal .qd 30 days duloxetine (Cymbalta) 60 mg PO DAILY 30 days ergocalciferol (vitamin D2) 50,000 units PO DAILY ferrous sulfate 325 mg PO DAILY 30 days gabapentin 300 mg PO TID 30 days hydroxychloroquine 200 mg PO BID hydroxyzine HCl 25 mg PO BEDTIME PRN leflunomide (Arava) 10 mg PO BID-TID levothyroxine 125 mcg PO DAILY 30 days lorazepam 0.5 mg PO DAILY PRN metoprolol succinate ER 25 mg PO BID 30 days naloxone 4 mg/actuation (Narcan) 4 mg intranasal Q2M PRN omega 8-zav-flp-fish oil 200-300-1,000 mg 1 cap PO DAILY 30 days omeprazole 20 mg PO DAILY 30 days ondansetron HCl 4 mg PO Q6H PRN tizanidine 2 mg PO Q8H PRN 30 days trazodone 150 mg PO BEDTIME PRN 30 days zinc sulfate (Orazinc) 50 mg PO DAILY 30 days zoledronic bsfw-avvbpecd-wqczg 5 mg/100 mL (Reclast) 5 ea IV .12 months HPI HPI Comments History of Present Illness Details 57-year-old female with psoriatic arthritis, Sjogren's, discoid lupus presents for follow-up. She was evaluated by General surgery and had a skin biopsy from her right upper extremity wounds. She believes that the skin rash is about the same. Has not changed. States that she is having worsening joint pain and swelling of both her ankles and feet, worse on the right. She has some pain in her MCPs bilaterally. Initial history: This is a 56-year-old female with a past medical history of psoriatic spondylitis, Sjogren's who presents as a new patient. She recently moved from [facility]. 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 Afterwards patient had multiple symptoms including dry eyes and dry mouth, Raynaud's and low back pain as well as peripheral arthritis. She was on multiple DMARDs for her arthritis including methotrexate which she could not tolerate, she was on Arava but per patient it caused diarrhea so now she takes 10 mg twice a week. She has been on hydroxychloroquine all through. Follows up regularly with Ophthalmology. She was started on Remicade 3-4 years ago 5 mg/kg every 8 weeks with significant improvement in her overall symptoms especially her back pain. Patient's last dose of Remicade was in November of 2021. Patient states that feels significant worsening of her overall joint pain especially her back now that she has not received Remicade for 8 months. Continues to have dry eyes and dry mouth. Uses Restasis regularly. Uses Salagen twice daily for dry mouth without significant relief. Continues to use Biotene mouthwash and Biotene toothpaste. In 2018 patient fell down the stairs and broke both her ankles does fractures were thought to be osteoporotic in nature. She had ORIF, she then took alendronate for a few months but could not tolerated due to GI upset. She could not do Tymlos as patient was needle phobic. Patient received Evenity 02/03 doses. Last dose was November of 2021. Patient states that food gets stuck almost every meal and she has to drink some water to get food to pass. [facility] Medical History Chronic low back pain Discoid lupus Thyroid disease Raynaud disease Neuropathy Arthritis Anemia Philipp thyroiditis, fibrous variant Polyarticular arthritis Hypertension Osteopenia of both ankles Surgical History History of ankle surgery History of tonsillectomy History of knee replacement Family History Paternal Grandfather Rheumatoid arthritis Lupus Father ALS (amyotrophic lateral sclerosis) Mother Macular degeneration Social History Household Members: None Housing: Apartment Alcohol intake: never Patient Tobacco Use Status: Never used Tobacco e-Cigarette/Vaping Use: Never Used service: No Current occupational status: disabled Cognitive needs: No Hearing needs: No Vision needs: No Review of Systems Musc Reports arthralgias and Reports joint swelling Skin/Breast Reports rash Physical Exam Vital Signs: Last Vital Signs Temp 97.3 F 03/24/23 13:57 Pulse 71 03/24/23 13:57 BP 128/62 03/24/23 13:57 Pulse Ox 96 03/24/23 13:57 BMI result Body Mass Index 32.8 Const General: cooperative and healthy appearing Nutritional Appearance: obese Orientation/consciousness: patient oriented x3 Limitations: no limitations HEENT Head: Yes normocephalic and Yes atraumatic Mouth: moist mucous membranes Resp Effort & Inspection: normal respiratory effort and able to speak in complete sentences Skin Other: Neuro General: patient oriented x3 Extrem Other: Mild right wrist swelling and pain with minimal flexion and extension Bilateral wrist tenderness Bilateral 2nd through 5th MCP tenderness Bilateral ankle tenderness Mild right ankle and foot swelling and tenderness Right foot diffuse MTP tenderness Results Reviewed Results Reviewed: Labs 01/2022? Urinalysis With trace protein and trace bilirubin Protein/creatinine ratio normal SUAD 1-160 homogeneous CMP unremarkable SSA +++ DsDNA/Scl 70/Rangel/GRAIN ORIGINATION SPECIALIST /RF/CCP all -ve C4/C3 normal Hep C antibody/HepB core antibody IgM/HbS Ag/negative QuantiFERON negative Free T4 normal? ?TSH 7.99 MRI L-spine 04/2021 Impression multilevel spondylitic changes and focal disc protrusion at L3-L4 contacts the trend sending right L4 nerve root in the lateral recess without definite displacement DEXA 12/2018? L-spine T-score -1.2? Mean proximal fever -0.5? Mean femur neck -0.9 SI joint x-rays 10/2016? Findings the SI joints are intact with mild degenerative changes bilaterally.? Upper sacrum arcuate line are preserved.? Lower sacrum is obscured.? On the lateral view of the sacral coccyx no fracture or malalignment is seen.? Soft tissues unremarkable.? No radiopaque foreign bodies or soft tissue gas Assessment & Plan Assessment & Plan (1) Psoriatic arthritis: Comment: Per patient onset around 2003 Prednisone for about 10 years Could not tolerate methotrexate Humira was not effective Hydroxychloroquine throughout Remicade at 5 mgs/kg every 8 weeks started around 2015. DC 12/14 ineffective. +ve infliximab antibody Enbrel 01/14 DC 02/14 due to rash Unclear when Arava was started. But she only takes 10 mg twice a week, higher doses cause diarrhea Code(s): L40.50 - Arthropathic psoriasis, unspecified Plan: 57-year-old female with a past medical history of Sjogren's, discoid lupus & psoriatic spondylitis returns for follow-up. She is on hydroxychloroquine 200 mg Twice daily and are about 10 mg twice weekly. She continues to have multiple swollen and tender joints. Will need to add DMARDs. Discussed risks and benefits of Taltz. Patient agreed to proceed. Will start prior authorization for Taltz Continue Arava 10 mg twice a week Continue hydroxychloroquine 200 mg Twice daily Follow-up in 10 weeks Labs before next visit (2) Rash: Code(s): R21 - Rash and other nonspecific skin eruption Plan: Unclear cause. ?Drug reaction. Patient stated that she had similar rashes when she was initially diagnosed with discoid lupus, the rash was on the back of her neck. The rash started soon after Enbrel was started. Enbrel has been discontinued. Rash was biopsied. Findings are nonspecific. Rash is improving. Referred patient to Dermatology (3) Sjogren syndrome with keratoconjunctivitis: Code(s): M35.01 - Sjogren syndrome with keratoconjunctivitis Plan: SUAD 1-160 homogeneous. +++SSa. Dry eyes and dry mouth. Continue Restasis Continue Biotene mouthwash and Biotene toothpaste. (4) Chronic low back pain: Code(s): M54.50 - Low back pain, unspecified; G89.29 - Other chronic pain Qualifiers: Back pain laterality: midline Sciatica presence: unspecified whether sciatica present Qualified Code(s): M54.50 - Low back pain, unspecified; G89.29 - Other chronic pain Plan: Was evaluated by Pain Management and a therapeutic procedure trial was suggested but patient canceled it. Continue to follow-up with pain management (5) Osteoporosis with fracture: Comment: Bilateral ankle fracture while walking down the stairs. Around 10 years of chronic corticosteroid exposure DEXA 12/2018? L-spine T-score -1.2? Mean proximal fever -0.5? Mean femur neck -0.9 DEXA 06/2022 L-spine T-score -0.4 Left femur neck-0.5 Left femur total -0.5 Took alendronate for about 6 months stopped due to GI intolerance Needle phobic could not use Tymlos Took 9 out of 12 doses of Evenity, last dose 11/2021 Code(s): M80.80XA - Other osteoporosis with current pathological fracture, unspecified site, initial encounter for fracture Qualifiers: Osteoporosis type: age-related Site of pathological fracture: tibia and fibula Encounter type: initial encounter Laterality: unspecified laterality Qualified Code(s): M80.069A - Age-related osteoporosis with current pathological fracture, unspecified lower leg, initial encounter for fracture Plan: Patient broke both her ankles were walking down the stairs in November of 2018 s/p ORIF. DEXA scan showed osteopenia -1.2 but due to long history of corticosteroid exposure she was deemed to have osteoporosis. Patient received Evenity for 9 doses with some improvement of her T-score. Patient agreed to start Reclast. It was approved. Will schedule it (6) Long-term use of hydroxychloroquine: Code(s): Z79.899 - Other alf (current) drug therapy Plan: Patient was not able to find an usability strategist for hydroxychloroquine monitoring. I advised patient to call her insurance company and look for ophthalmologists in the area who accept her insurance (7) Immunization counseling: Code(s): Z71.85 - Encounter for immunization safety counseling Plan: Discussed ACR vaccination guidelines for adults with autoimmune rheumatic disease on immune suppression. Patient received the new COVID booster and flu vaccine for this season. Plan I spent 40 minutes reviewing patient's chart, evaluating patient, ordering diagnostic workup, counseling patient and documenting in the chart Orders: Orders Complete Blood Count Auto Diff 2 Months L40.50 - Arthropathic psoriasis, unspecified Comprehensive Met. Panel 2 Months L40.50 - Arthropathic psoriasis, unspecified C Reactive Protein 2 Months L40.50 - Arthropathic psoriasis, unspecified Erythrocyte Sedimentation Rate 2 Months L40.50 - Arthropathic psoriasis, unspecified Coding Level of Care Code Est Pt Level 5 (13447) Diagnoses Psoriatic arthritis L40.50 Rash R21 Sjogren syndrome with keratoconjunctivitis M35.01 Chronic midline low back pain, unspecified whether sciatica present M54.50; G89.29 Back pain laterality: midline Sciatica presence: unspecified whether sciatica present Pathological fracture of both tibia and fibula due to age-related osteoporosis, unspecified laterality, initial encounter M80.069A Osteoporosis type: age-related Site of pathological fracture: tibia and fibula Encounter type: initial encounter Laterality: unspecified laterality Long-term use of hydroxychloroquine Z79.899 Immunization counseling Z71.85
== END 2023-03-24 14:20 | disposition home or self-care (01) ==
PROVIDERS: PCP Nurse Practitioner Family; Visit Provider Student in an Organized Health Care Education/Training Program
DX: L40.50 Arthropathic psoriasis, unspecified (principal); M35.01 Sjogren syndrome with keratoconjunctivitis; R21 Rash and other nonspecific skin eruption; M54.50 Low back pain, unspecified; G89.29 Other chronic pain; M80.0 Age-related osteoporosis with current pathological fracture; Z79.899 Other long term (current) drug therapy; Z71.85 Encounter for immunization safety counseling
CPT/HCPCS: 99215

== ENCOUNTER → 2023-03-24 13:53 | Outpatient (BNVA) | payer MEDICARE, MEDICAID, SELFPAY | PROVIDERS: PCP Nurse Practitioner Family; Visit Provider Student in an Organized Health Care Education/Training Program | DX: L40.50 Arthropathic psoriasis, unspecified (principal); M35.01 Sjogren syndrome with keratoconjunctivitis; M54.50 Low back pain, unspecified; M80.0 Age-related osteoporosis with current pathological fracture; R21 Rash and other nonspecific skin eruption; G89.29 Other chronic pain; Z79.899 Other long term (current) drug therapy; Z71.85 Encounter for immunization safety counseling | CPT/HCPCS: 99212 ==

== ENCOUNTER 2023-04-01 13:16 | Outpatient (AMB) | payer MEDICARE, MEDICAID, SELFPAY ==
--- NOTE | 2023-04-01 13:30 | A.OFFPC_ITS ---
Vital Signs 04/01/23 13:32 Height 5 ft 5 in Weight 198 lb BMI 32.9 BP 100/68 Blood Pressure Location Lt brachial Position Sitting Respiration 13 Pulse 90 Pulse Source Pulse Oximeter Temp 98.7 F Temp Source Oral Pulse Oximetry (%) 96 Oxygen Delivery Method Room Air Intake Visit Reasons: PE Intake Note: Patient is here for a physical and reports she has no concerns. Patient is requesting 90 day supply on all possible medications including trazadone. Patient requests a refill on duloxetine. 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 Accompanied by: Self / Same As Patient Allergies sulfa Allergy (Mild, Uncoded 04/01/23 13:45) Hives Medication List - Last Reconciled 04/01/23 by Sunni Browne CNP biotin 10 mg PO DAILY 30 days buprenorphine-naloxone 2-0.5 mg (Suboxone) 1 film sublingual TID cevimeline 1 cap PO TID cholecalciferol (vitamin D3) (Vitamin D3) 125 mcg PO DAILY cyanocobalamin (vitamin B-12) (Vitamin B-12) 2,500 mcg sublingual DAILY 30 days diclofenac epolamine 1.3% (Flector) 1 patch transdermal .qd 30 days duloxetine (Cymbalta) 60 mg PO DAILY 30 days ergocalciferol (vitamin D2) 50,000 units PO DAILY ferrous sulfate 325 mg PO DAILY 30 days gabapentin 300 mg PO TID 30 days hydroxychloroquine 200 mg PO BID hydroxyzine HCl 25 mg PO BEDTIME PRN leflunomide (Arava) 10 mg PO BID-TID levothyroxine 125 mcg PO DAILY 30 days lorazepam 0.5 mg PO DAILY PRN metoprolol succinate ER 25 mg PO BID 30 days naloxone 4 mg/actuation (Narcan) 4 mg intranasal Q2M PRN omega 9-ysd-rin-fish oil 200-300-1,000 mg 1 cap PO DAILY 30 days omeprazole 20 mg PO DAILY 30 days ondansetron HCl 4 mg PO Q6H PRN Taltz Autoinjector (ixekizumab) 80 mg subcut Q4W NS Taltz Autoinjector (2 Pack) (ixekizumab) 160 mg (2 mL) subcut ONCE NS tizanidine 2 mg PO Q8H PRN 30 days trazodone 150 mg PO BEDTIME PRN 30 days zinc sulfate (Orazinc) 50 mg PO DAILY 30 days zoledronic bgtk-gxbudebr-tpwms 5 mg/100 mL (Reclast) 5 ea IV .12 months Tobacco use date assessed: 04/01/23 Dental Screening Dental Screen Date: 04/01/23 Did you have a dental visit in the last 12 months?: Yes Did you have a dental problem in the last 6 months where you did not have access to dental care?: No Was dental information given to patient?: Patient has dentist HPI HPI Comments History of Present Illness Details 57-year-old female presents for complete physical exam She admits to taking her medications as prescribed She reports chronic back pain. She requests an appointment to osteopathic medicine. She is followed by addiction medicine for opiates dependence, Psychiatry, Rheumatology, Pain Management, and hematology She states she has ophthalmology appointment for eye exam tomorrow She notes that her last last mammogram was at [facility] a year ago: normal She states she had never had a colonoscopy done She notes states that her last pap smear test was 3 years ago: normal She states she has never had the Shingrix vaccines. [facility] Medical History Chronic low back pain Discoid lupus Thyroid disease Raynaud disease Neuropathy Arthritis Anemia Philipp thyroiditis, fibrous variant Polyarticular arthritis Hypertension Osteopenia of both ankles Surgical History History of ankle surgery History of tonsillectomy History of knee replacement Family History Paternal Grandfather Rheumatoid arthritis Lupus Father ALS (amyotrophic lateral sclerosis) Mother Macular degeneration Social History Household Members: None Housing: Apartment Alcohol intake: never Patient Tobacco Use Status: Never used Tobacco e-Cigarette/Vaping Use: Never Used service: No Current occupational status: disabled Cognitive needs: No Hearing needs: No Vision needs: No Questionnaire PHQ-9 Over the last 2 weeks, how often have you been bothered by any of the following problems? 1. Little interest or pleasure in doing things: not at all 2. Feeling down, depressed, or hopeless: not at all 3. Trouble falling or staying asleep, or sleeping too much: not at all 4. Feeling tired or having little energy: not at all 5. Poor appetite or overeating: not at all 6. Feeling bad about yourself - or that you are a failure or have let yourself or your family down: not at all 7. Trouble concentrating on things, such as reading the newspaper or watching television: not at all 8. Moving or speaking so slowly that other people could have noticed. Or the opposite - being so fidgety or restless that you have been moving around a lot more than usual: not at all 9. Thoughts that you would be better off or of hurting yourself in some way: not at all Total score: 0 Depression Screening Interpretation: Negative Depression Screening Done: Yes [id number] - PHQ-9 Billing: Yes Source: Developed by Drs. Corby Peter, Porhsa Mata, Jose Harrell and colleagues, with an educational fausto from [employer]. Thrive Questionnaire Date Thrive assessed: 07/15/22 I am a: Patient What is your living situation today?: I have a steady place to live Within the past 12 months, did the food you bought not last and you didn't have the money to get more?: Never true Within the past 12 months, did you worry whether your food would run out before you got money to buy more?: Never true Do you have trouble paying for medicines?: No Do you have trouble getting transportation to medical appointments?: No Do you have trouble paying your heating and electricity bill?: No Do you have trouble taking care of your child, family member or friend?: No Do you have trouble with day-to-day activities such as bathing, preparing meals, shopping, managing finances, etc.?: No Are you currently unemployed and looking for a job?: No Are you interested in more education?: No Please select the resources that you would like help with: None Currently or been in a relationship where the following occur: no concerns reported AUDIT C Alcohol Use Questionnaire (AUDIT-C) 1. How often do you have a drink containing alcohol?: Never 3. How often do you have six or more drinks on one occasion?: Never Total Score: 0 LATRICIA-7 AMB Questionnaire LATRICIA-7 Date LATRICIA - 7 assessed: 04/01/23 Feeling nervous, anxious, or on edge: 0 = Not at all Not being able to stop or control worryin = Not at all Worrying too much about different things: 0 = Not at all Trouble relaxin = Not at all Being so restless that it is hard to sit still: 0 = Not at all Becoming easily annoyed or irritable: 0 = Not at all Feeling afraid as if something awful might happen: 0 = Not at all Total LATRICIA-7 score (0-4 normal; 5-9 mild; 10-14 moderate; 15-21 severe): 0 Source: Developed by Drs. Corby Peter, Porsha Mata, Jose Harrell and colleagues, with an educational fausto from [employer]. LATRICIA-7 Assessment Billing LATRICIA-7 Assessment Tool: LATRICIA-7 Assessment 39682 Review of Systems Const Details: Denies chills, Denies fatigue, Denies fever(s), Denies headache(s) and Denies weakness HEENT Denies change in vision, Denies dizziness, Denies headache(s), Denies hearing loss, Denies nasal congestion, Denies sinus pain, Denies sinus pressure and Denies sore throat Card Denies chest pain, Denies lightheadedness, Denies dyspnea and Denies other (palpitations) Resp Denies cough, Denies dyspnea and Denies wheezing GI Denies abdominal pain, Denies melena, Denies hematochezia, Denies change in bowel habits, Denies dyspepsia and Denies nausea Denies hematuria and Denies dysuria Musc Reports as per HPI Skin/Breast Denies rash, Denies unusual bruising and Denies wounds Neuro Denies abnormal gait, Denies dizziness, Denies headache(s), Denies memory loss, Denies numbness, Denies Sensory deficit (Neuro), Denies tingling and Denies weakness Psych Denies anxiety, Denies depression and Denies memory loss Endo Denies cold intolerance, Denies fatigue, Denies heat intolerance, Denies polydipsia and Denies polyuria Sina/Lymph Denies easy bleeding and Denies easy bruising Aller/Immun Denies wheezing Physical exam (Primary Care) Vital Signs: Last Vital Signs Temp 98.7 F 04/01/23 13:32 Pulse 90 04/01/23 13:32 Resp 13 04/01/23 13:32 BP 100/68 04/01/23 13:32 Pulse Ox 96 04/01/23 13:32 Oxygen Delivery Method Room Air 04/01/23 13:32 BMI result Body Mass Index 32.9 Tobacco/Smoking Status: Tobacco use Status Tobacco use date assessed 04/01/23 04/01/23 13:34 Patient Tobacco Use Status Never used Tobacco 04/01/23 13:34 e-Cigarette/Vaping Use Never Used 04/01/23 13:34 PHQ-9: PHQ-9 Score PHQ-9: Total score 0 04/01/23 13:47 Depression Screening Interpretation: Negative Thrive Assessment: Date of Thrive Assessment Date Thrive assessed 07/15/22 04/01/23 13:34 Currently or been in a relationship where the following occur: no concerns reported Const Other: General: no acute distress, well developed, alert and awake Nutritional Appearance: well nourished Orientation/consciousness: patient oriented x3 HENMT Head: Yes normocephalic and Yes atraumatic Ears: hearing grossly normal bilaterally and TM's normal bilaterally General nose exam: Normal external nose present and Normal nares present Mouth: Normal oral and palatal mucosa present and moist mucous membranes Teeth and gingiva: dentition normal Throat: Yes oropharynx normal Eyes Pupils: Equal, round and reactive pupils present and Pupil accommodation reflex normal EOM: EOMs intact bilaterally Neck Neck: Yes normal visual inspection, Yes no lymphadenopathy and Yes trachea midline Thyroid: Thyroid normal Carotids: no bruits Lymphatic: no lymphadenopathy noted Chest Chest palpation & inspection: normal inspection of the chest Resp Effort & Inspection: normal respiratory effort Auscultation: clear to auscultation bilaterally Cardio Rate: regular rate Rhythm: regular rhythm Heart sounds: S1 normal heart sound present, S2 normal heart sound present, no gallops, no murmurs and no rubs Bruits: no abdominal aortic bruits and no carotid bruits GI Palpation (GI): No Abdominal aortic bruit present, Soft to palpation, nontender, No hepatosplenomegaly present and No Rebound tenderness present Auscultation: normal bowel sounds General: Yes no CVA tenderness Back/Spine/Pelvis Back: no CVA tenderness Cervical Spine: cervical ROM normal and No Cervical spine tenderness Thoracic/Lumbar Spine: thoraco-lumbar ROM normal, No pain with thoraco-lumbar ROM, No thoracic spinal tenderness and No lumbar spinal tenderness. Thoracic spine kyphosis Skin General: warm and dry. Normal skin color. Normal skin turgor Lesions: no lesions Rashes: no rashes Trauma: no lacerations or abrasions Wounds: no wounds Nails: normal Neuro General: patient oriented x3, gait normal and CN's II-XI intact bilaterally Cranial nerves: Yes Equal, round and reactive pupils present Cognition (Neuro): normal cognition Gait exam (Neuro): Normal gait present Motor exam (neuro): 5/5 motor strength present throughout Sensory Exam: No Sensory deficit (Neuro) Deep tendon reflexes (DTR's): Right patellar reflex intensity grade: 2+ and Left patellar reflex intensity grade: 2+ Extrem General: Yes normal to inspection, No edema and No calf tenderness Psych Appearance: grossly normal Affect: normal affect Attitude: cooperative Thought process: Normal thought process present Assessment and Plan Assessment & Plan (1) Normal physical examination, routine: Code(s): Z00.00 - Encounter for general adult medical examination without abnormal findings Plan: No significant physical restrictions or limitations noted She will return in 3 months for hypertension, hypothyroidism, anxiety, and depression Continue follow-up with addiction medicine, Psychiatry, Rheumatology, Pain Management, ophthalmology, and hematology as planned Return with symptoms or concerns Verbalized understanding and agreed with treatment plan. (2) Hypertension: Code(s): I10 - Essential (primary) hypertension Qualifiers: Hypertension type: primary hypertension Qualified Code(s): I10 - Essential (primary) hypertension Plan: Blood pressure is controlled, 100/68, within goal of less than 140/90 Metoprolol as prescribed Low-sodium diet encouraged Follow-up in 3 months Verbalized understanding and agreed with treatment plan. (3) Hypothyroidism: Code(s): E03.9 - Hypothyroidism, unspecified Plan: Recent TSH was 2 months ago, normal Will recheck TSH level in 2 months. Advised to get blood work done before next visit Follow-up in 3 months Verbalized understanding and agreed with treatment plan. (4) Depression: Code(s): F32.A - Depression, unspecified Plan: PHQ-9 and LATRICIA-7 scores are normal Duloxetine, hydroxyzine, lorazepam, and trazodone prescribed Routine exercise encouraged Follow-up in 3 months or return sooner with worsening or new symptoms Verbalized understanding and agreed with treatment plan. (5) Anxiety: Code(s): F41.9 - Anxiety disorder, unspecified Plan: As above (6) Thoracic kyphosis: Code(s): M40.204 - Unspecified kyphosis, thoracic region Plan: Thoracic kyphosis noted during her physical exam She reports history of thoracic scoliosis Referred to osteopathic medicine as requested (7) Chronic low back pain: Code(s): M54.50 - Low back pain, unspecified; G89.29 - Other chronic pain Qualifiers: Back pain laterality: midline Sciatica presence: unspecified whether sciatica present Qualified Code(s): M54.50 - Low back pain, unspecified; G89.29 - Other chronic pain Plan: History of chronic back pain Continue with current treatment regimen Referred to osteopathic medicine as requested Return with worsening or new symptoms Verbalized understanding and agreed with treatment plan. 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 (12) Breast cancer screening by mammogram: Code(s): Z12.31 - Encounter for screening mammogram for malignant neoplasm of breast Plan: She notes that her last last mammogram was at [facility] a year ago: normal Mammogram ordered Orders: Orders TSH reflex Free T4 3 Months E03.9 - Hypothyroidism, unspecified MM screening mammo BI Today Z12.31 - Encounter for screening mammogram for malignant neoplasm of breast Referrals Osteopathic Medicine Referral G89.29 - Other chronic pain, M40.204 - Unspecified kyphosis, thoracic region, M47.816 - Spondylosis without myelopathy or radiculopathy, lumbar region, M54.50 - Low back pain, unspecified Gastroenterology Referral Z12.11 - Encounter for screening for malignant neoplasm of colon [employer] Referral Z12.4 - Encounter for screening for malignant neoplasm of cervix Coding Level of Care Code Est Pt Prev Care 40-64y([id number]) Diagnoses Normal physical examination, routine Z00.00 Primary hypertension I10 Hypertension type: primary hypertension Hypothyroidism E03.9 Depression F32.A Anxiety F41.9 Thoracic kyphosis M40.204 Chronic midline low back pain, unspecified whether sciatica present M54.50; G89.29 Back pain laterality: midline Sciatica presence: unspecified whether sciatica present Lumbar spondylosis M47.816 Pap smear for cervical cancer screening Z12.4 Colon cancer screening Z12.11 Vaccine counseling Z71.85 Breast cancer screening by mammogram Z12.31 Additional Codes LATRICIA-7 Assessment Billing - LATRICIA-7 Assessment Tool: LATRICIA-7 Assessment [id number] ([id number])
[2023-04-01 13:32] VITALS: BP 100/68; PULSE 90; RESP 13; TEMP 37.1; O2SAT 96; BMI 32.9
--- NOTE | 2023-04-01 13:33 | A.OFFPC_ITS ---
Vital Signs 04/01/23 13:32 Height 5 ft 5 in Weight 198 lb BMI 32.9 Respiration 13 Pulse 90 Pulse Source Pulse Oximeter Temp 98.7 F Temp Source Oral Pulse Oximetry (%) 96 Oxygen Delivery Method Room Air Intake Visit Reasons: PE Allergies sulfa Allergy (Mild, Uncoded 04/01/23 13:34) Hives Tobacco use date assessed: 01/30/23 [facility] Medical History Chronic low back pain Discoid lupus Thyroid disease Raynaud disease Neuropathy Arthritis Anemia Philipp thyroiditis, fibrous variant Polyarticular arthritis Hypertension Osteopenia of both ankles Surgical History History of ankle surgery History of tonsillectomy History of knee replacement Family History Paternal Grandfather Rheumatoid arthritis Lupus Father ALS (amyotrophic lateral sclerosis) Mother Macular degeneration Social History Household Members: None Housing: Apartment Alcohol intake: never Patient Tobacco Use Status: Never used Tobacco e-Cigarette/Vaping Use: Never Used service: No Current occupational status: disabled Cognitive needs: No Hearing needs: No Vision needs: No Questionnaire Thrive Questionnaire Date Thrive assessed: 07/15/22 LATRICIA-7 AMB Questionnaire LATRICIA-7 Date LATRICIA - 7 assessed: 07/15/22 Source: Developed by Drs. Corby Peter, Porsha Mata, Jose Harrell and colleagues, with an educational fausto from [employer]. Review of Systems Const Details: Denies chills, Denies fatigue, Denies fever(s), Denies headache(s) and Denies weakness HEENT Denies change in vision, Denies dizziness, Denies headache(s), Denies hearing loss, Denies nasal congestion, Denies sinus pain, Denies sinus pressure and Denies sore throat Card Denies chest pain, Denies lightheadedness, Denies dyspnea and Denies other (palpitations) Resp Denies cough, Denies dyspnea and Denies wheezing GI Denies abdominal pain, Denies melena, Denies hematochezia, Denies change in bowel habits, Denies dyspepsia and Denies nausea Denies hematuria and Denies dysuria Musc Denies abnormal gait, Denies myalgias, Denies arthralgias, Denies numbness and Denies tingling Skin/Breast Denies rash, Denies unusual bruising and Denies wounds Neuro Denies abnormal gait, Denies dizziness, Denies headache(s), Denies memory loss, Denies numbness, Denies Sensory deficit (Neuro), Denies tingling and Denies weakness Psych Denies anxiety, Denies depression and Denies memory loss Endo Denies cold intolerance, Denies fatigue, Denies heat intolerance, Denies polydipsia and Denies polyuria Sina/Lymph Denies easy bleeding and Denies easy bruising Aller/Immun Denies wheezing Physical exam (Primary Care) Vital Signs: Last Vital Signs Temp 98.7 F 04/01/23 13:32 Pulse 90 04/01/23 13:32 Resp 13 04/01/23 13:32 Pulse Ox 96 04/01/23 13:32 Oxygen Delivery Method Room Air 04/01/23 13:32 BMI result Body Mass Index 32.9 Tobacco/Smoking Status: Tobacco use Status Tobacco use date assessed 01/30/23 01/30/23 15:19 Patient Tobacco Use Status Never used Tobacco 01/30/23 15:19 e-Cigarette/Vaping Use Never Used 01/30/23 15:19 Thrive Assessment: Date of Thrive Assessment Date Thrive assessed 07/15/22 01/30/23 15:19 Const Other: General: no acute distress, well developed, alert and awake Nutritional Appearance: well nourished Orientation/consciousness: patient oriented x3 HENMT Head: Yes normocephalic and Yes atraumatic Ears: hearing grossly normal bilaterally and TM's normal bilaterally General nose exam: Normal external nose present and Normal nares present Mouth: Normal oral and palatal mucosa present and moist mucous membranes Teeth and gingiva: dentition normal Throat: Yes oropharynx normal Eyes Pupils: Equal, round and reactive pupils present and Pupil accommodation reflex normal EOM: EOMs intact bilaterally Neck Neck: Yes normal visual inspection, Yes no lymphadenopathy and Yes trachea midline Thyroid: Thyroid normal Carotids: no bruits Lymphatic: no lymphadenopathy noted Chest Chest palpation & inspection: normal inspection of the chest Resp Effort & Inspection: normal respiratory effort Auscultation: clear to auscultation bilaterally Cardio Rate: regular rate Rhythm: regular rhythm Heart sounds: S1 normal heart sound present, S2 normal heart sound present, no gallops, no murmurs and no rubs Bruits: no abdominal aortic bruits and no carotid bruits GI Palpation (GI): No Abdominal aortic bruit present, Soft to palpation, nontender, No hepatosplenomegaly present and No Rebound tenderness present Auscultation: normal bowel sounds General: Yes no CVA tenderness Back/Spine/Pelvis Back: no CVA tenderness Cervical Spine: cervical ROM normal and No Cervical spine tenderness Thoracic/Lumbar Spine: thoraco-lumbar ROM normal, No pain with thoraco-lumbar ROM, No thoracic spinal tenderness and No lumbar spinal tenderness Skin General: warm and dry. Normal skin color. Normal skin turgor Lesions: no lesions Rashes: no rashes Trauma: no lacerations or abrasions Wounds: no wounds Nails: normal Neuro General: patient oriented x3, gait normal and CN's II-XI intact bilaterally Cranial nerves: Yes Equal, round and reactive pupils present Cognition (Neuro): normal cognition Gait exam (Neuro): Normal gait present Motor exam (neuro): 5/5 motor strength present throughout Sensory Exam: No Sensory deficit (Neuro) Deep tendon reflexes (DTR's): Right patellar reflex intensity grade: 2+ and Left patellar reflex intensity grade: 2+ Extrem General: Yes normal to inspection, No edema and No calf tenderness Psych Appearance: grossly normal Affect: normal affect Attitude: cooperative Thought process: Normal thought process present Coding
== END 2023-04-01 14:09 | disposition home or self-care (01) ==
PROVIDERS: PCP Nurse Practitioner Family; Visit Provider Nurse Practitioner Family
DX: Z00.00 Encounter for general adult medical examination without abnormal findings (principal); I10 Essential (primary) hypertension; E03.9 Hypothyroidism, unspecified; F32.A Depression, unspecified; F41.9 Anxiety disorder, unspecified; M40.204 Unspecified kyphosis, thoracic region; M54.50 Low back pain, unspecified; G89.29 Other chronic pain; M47.816 Spondylosis without myelopathy or radiculopathy, lumbar region; Z12.4 Encounter for screening for malignant neoplasm of cervix; Z12.11 Encounter for screening for malignant neoplasm of colon; Z71.85 Encounter for immunization safety counseling; Z12.31 Encounter for screening mammogram for malignant neoplasm of breast
CPT/HCPCS: 99396

== ENCOUNTER 2023-04-22 15:37 | Outpatient (REF) | payer MEDICARE, SELFPAY ==
[2023-04-22 16:28] LABS: MANUAL DIFF FLAG NO
[2023-04-22 17:38] LABS: Eosinophils Absolute Auto 0.1 X10*3/uL (0.0-0.4); Eosinophils Percent Auto 3.4 % (0-4); Hematocrit 35.8 % (37.0-47.0); Hemoglobin 10.9 g/dl (12.0-16.0); Lymphocytes Absolute Auto 1.7 X10*3/uL (1.2-4.9); Lymphocytes Percent Auto 41.9 % (20-40); Mean Corpuscular HGB Conc 30.4 g/dl (31.0-35.0); Mean Corpuscular Hemoglobin 26.3 pg (27.0-33.0); Mean Corpuscular Volume 86.5 fL (80.0-98.0); Mean Platelet Volume 9.6 fL (9.4-12.3); Monocytes Absolute Auto 0.4 X10*3/uL (0.1-1.2); Monocytes Percent Auto 9.2 % (2-11); Neutrophils Absolute Auto 1.9 x10*3/uL (2.0-8.3); Neutrophils Percent Auto 44.5 % (45-73); Platelet Count 305 X10*3/uL (160-400); Red Blood Count 4.14 X10*6/uL (4.20-5.50); Red Cell Distribution Width 15.8 % (11.0-16.0); White Blood Count 4.2 X10*3/uL (4.8-10.8)
[2023-04-22 17:45] LABS: Alanine Aminotransferase 9 U/L (0-31); Albumin Level 4.1 g/dL (3.5-5.0); Alkaline Phosphatase 55 U/L (39-117); Anion Gap 11 (12-20); Aspartate Amino Transferase 18 U/L (5-31); Bilirubin Total 0.3 mg/dL (0.0-1.0); Blood Urea Nitrogen 12 mg/dL (9-16); C Reactive Protein 0.37 mg/dL (< or = 0.50); Carbon Dioxide 31 mmol/L (22-29); Chloride 104 mmol/L (96-108); Estimated Glomerular Filt Rate > 60; Glucose Random 95 mg/dL (60-115); Potassium 4.3 mmol/L (3.3-5.1); Sodium 142 mmol/L (135-145); Total Protein 7.3 g/dL (6.5-8.0)
[2023-04-22 18:32] LABS: Erythrocyte Sedimentation Rate 8 MM/HR (0-20)
== END 2023-04-22 15:38 | disposition home or self-care (01) ==
LOC: HO.LAB 15:37
PROVIDERS: Absent Provider Student in an Organized Health Care Education/Training Program; PCP Nurse Practitioner Family; Visit Provider Nurse Practitioner Psychiatric/Mental Health
DX: L40.50 Arthropathic psoriasis, unspecified (principal); F11.20 Opioid dependence, uncomplicated
CPT/HCPCS: 36415; 80053; 85025; 85652; 86140; 99212

== ENCOUNTER 2023-04-22 15:37 | Outpatient (AMB) | payer MEDICARE, MEDICAID, SELFPAY ==
[2023-04-22 15:49] VITALS: BP 124/72; PULSE 74; O2SAT 98
--- NOTE | 2023-04-22 15:49 | MHC.OFFVIS ---
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 Allergies sulfa Allergy (Mild, Uncoded 04/22/23 15:50) Hives Do you need a note to return to daycare/school/sports/work: No HPI MAT Visit HPI Details Patient presents for follow up Currently prescribed Suboxone 2mg TID Asking about injection--forget at times and realizes it when she starts to feel a backache Provided information to review prior to next appt [facility] Medical History Chronic low back pain Discoid lupus Thyroid disease Raynaud disease Neuropathy Arthritis Anemia Philipp thyroiditis, fibrous variant Polyarticular arthritis Hypertension Osteopenia of both ankles Surgical History History of ankle surgery History of tonsillectomy History of knee replacement Family History Paternal Grandfather Rheumatoid arthritis Lupus Father ALS (amyotrophic lateral sclerosis) Mother Macular degeneration Social History Household Members: None Housing: Apartment Alcohol intake: never Patient Tobacco Use Status: Never used Tobacco e-Cigarette/Vaping Use: Never Used service: No Current occupational status: disabled Cognitive needs: No Hearing needs: No Vision needs: No Review of Systems Const Reports as per HPI and Reports no additional complaints Physical Exam Vital Signs: Last Vital Signs Pulse 74 04/22/23 15:49 BP 124/72 04/22/23 15:49 Pulse Ox 98 04/22/23 15:49 Oxygen Delivery Method Room Air 04/22/23 15:49 Const General: cooperative, no acute distress and alert Nutritional Appearance: well nourished Orientation/consciousness: patient oriented x3 Limitations: no limitations Neuro General: patient oriented x3 Psych Appearance: grossly normal Mental Status: mental status grossly normal Speech and movement: Normal speech and movement present Affect: normal affect Attitude: cooperative Thought process: Normal thought process present Thought content: Normal thought content present Insight: Good insight present (Psych) Judgement: Good judgement present (Psych) Assessment & Plan Assessment & Plan (1) Opioid dependence: Code(s): F11.20 - Opioid dependence, uncomplicated Qualifiers: Substance use status: uncomplicated Qualified Code(s): F11.20 - Opioid dependence, uncomplicated Plan: continue suboxone at current dose follow up 2 months Coding Level of Care Code Est Pt Level 3 (76067) Diagnoses Uncomplicated opioid dependence F11.20 Substance use status: uncomplicated
== END 2023-04-22 16:32 | disposition home or self-care (01) ==
PROVIDERS: PCP Nurse Practitioner Family; Visit Provider Nurse Practitioner Psychiatric/Mental Health
DX: F11.20 Opioid dependence, uncomplicated (principal)
CPT/HCPCS: 99213

== ENCOUNTER 2023-06-23 15:07 | Outpatient (AMB) | payer MEDICARE, MEDICAID, SELFPAY ==
--- NOTE | 2023-06-23 15:14 | MHC.AM.SUB ---
Intake Vital Signs 06/23/23 15:22 BP 124/80 Blood Pressure Location Lt radial Position Sitting Pulse 82 Pulse Source Pulse Oximeter Pulse Oximetry (%) 99 Oxygen Delivery Method Room Air Intake Visit Reasons: mat visit Intake Note: THE PATIENT PRESENTS FOR A MAT VISIT Compressor Mechanic Required: No Allergies sulfa Allergy (Mild, Uncoded 06/23/23 15:23) Hives Do you need a note to return to daycare/school/sports/work: No HPI mat visit HPI Details Pt presents for OUD treatment and follow up When verifying her dose with her, she reports she has been taking 2mg BID, when t/w reviewed with pt that her dose is 2mg TID, she stated so that's why my back has been hurting Reviewed her dose with her and encouraged her to take her films same time everyday for more consistent medication coverage She denies experiencing any side effects at this time, denies constipation [facility] Medical History Chronic low back pain Discoid lupus Thyroid disease Raynaud disease Neuropathy Arthritis Anemia Philipp thyroiditis, fibrous variant Polyarticular arthritis Hypertension Osteopenia of both ankles Surgical History History of ankle surgery History of tonsillectomy History of knee replacement Family History Paternal Grandfather Rheumatoid arthritis Lupus Father ALS (amyotrophic lateral sclerosis) Mother Macular degeneration Social History Household Members: None Housing: Apartment Alcohol intake: never Patient Tobacco Use Status: Never used Tobacco e-Cigarette/Vaping Use: Never Used service: No Current occupational status: disabled Cognitive needs: No Hearing needs: No Vision needs: No Review of Systems Const Reports as per HPI Physical Exam Vital Signs: Last Vital Signs Pulse 82 06/23/23 15:22 BP 124/80 06/23/23 15:22 Pulse Ox 99 06/23/23 15:22 Oxygen Delivery Method Room Air 06/23/23 15:22 Const General: cooperative and no acute distress Resp Effort & Inspection: normal respiratory effort Skin General skin exam: no rashes or lesions noted Psych Appearance: grossly normal Mental Status: mental status grossly normal Speech and movement: Normal speech and movement present Affect: normal affect Attitude: cooperative Assessment & Plan Assessment & Plan (1) Opioid dependence: Code(s): F11.20 - Opioid dependence, uncomplicated Qualifiers: Substance use status: uncomplicated Qualified Code(s): F11.20 - Opioid dependence, uncomplicated Plan: -Re-educated patient about her correct dose -Mass pat reviewed -Follow up 2 months -Instructed her to call [facility] with any questions or concerns, or if she needs to be seen sooner Medications: Refilled buprenorphine-naloxone 2-0.5 mg (Suboxone) 1 film sublingual TID 90 ea 1RF Coding Level of Care Code Est Pt Level 3 (48626) Diagnoses Uncomplicated opioid dependence F11.20 Substance use status: uncomplicated
[2023-06-23 15:22] VITALS: BP 124/80; PULSE 82; O2SAT 99
== END 2023-06-23 15:38 | disposition home or self-care (01) ==
PROVIDERS: PCP Nurse Practitioner Family; Visit Provider Nurse Practitioner Family
DX: F11.20 Opioid dependence, uncomplicated (principal)
CPT/HCPCS: 99214

== ENCOUNTER → 2023-06-23 15:07 | Outpatient (BNVA) | payer MEDICARE, SELFPAY | PROVIDERS: PCP Nurse Practitioner Family; Visit Provider Nurse Practitioner Family | DX: F11.20 Opioid dependence, uncomplicated (principal) | CPT/HCPCS: 99212 ==

== ENCOUNTER 2023-08-03 14:27 | Outpatient (AMB) | payer OTHER, MEDICAID, SELFPAY ==
--- NOTE | 2023-08-03 14:28 | MHC.OFFVIS ---
Intake Vital Signs 08/03/23 14:34 Height 5 ft 5 in Weight 198 lb 3.129 oz BMI 33.0 BP 142/62 H Blood Pressure Location Rt brachial Position Sitting Pulse 85 Pulse Source Pulse Oximeter Pulse Oximetry (%) 97 Oxygen Delivery Method Room Air Intake Visit Reasons: PsA Intake Note: Pt last seen 03/24/23 presents today for follow up and test results. English Lecturer Required: No Accompanied by: Self / Same As Patient Allergies sulfa Allergy (Mild, Uncoded 08/03/23 14:29) Hives Medication List - Last Reconciled 08/03/23 by Sunni Samuels MD biotin 10 mg PO DAILY 30 days buprenorphine-naloxone 2-0.5 mg (Suboxone) 1 film sublingual TID cevimeline 1 cap PO TID cholecalciferol (vitamin D3) (Vitamin D3) 125 mcg PO DAILY cyanocobalamin (vitamin B-12) (Vitamin B-12) 2,500 mcg sublingual DAILY 30 days diclofenac epolamine 1.3% (Flector) 1 patch transdermal .qd 30 days duloxetine (Cymbalta) 60 mg PO DAILY 30 days ergocalciferol (vitamin D2) 50,000 units PO DAILY ferrous sulfate 325 mg PO DAILY 30 days gabapentin 300 mg PO TID 30 days hydroxychloroquine 200 mg PO BID hydroxyzine HCl 25 mg PO BEDTIME PRN leflunomide (Arava) 10 mg PO BID-TID levothyroxine 125 mcg PO DAILY 30 days lorazepam 0.5 mg PO DAILY PRN metoprolol succinate ER 25 mg PO BID 30 days naloxone 4 mg/actuation (Narcan) 4 mg intranasal Q2M PRN omega 5-obs-qsp-fish oil 200-300-1,000 mg 1 cap PO DAILY 30 days omeprazole 20 mg PO DAILY 30 days ondansetron HCl 4 mg PO Q6H PRN tizanidine 2 mg PO Q8H PRN 30 days trazodone 150 mg PO BEDTIME PRN 30 days zinc sulfate (Orazinc) 50 mg PO DAILY 30 days zoledronic eyit-thaosmfx-agqdq 5 mg/100 mL (Reclast) 5 ea IV .12 months HPI HPI Comments History of Present Illness Details 57-year-old female with psoriatic arthritis, Sjogren's, discoid lupus presents for follow-up. Patient states that her father recently and she has not not been very focused on her own medical conditions. She stated that she got the loading dose for Taltz then received 1 dose of Enbrel 2 weeks ago. She was confused about her biologic DMARDs. She is compliant with leflunomide and hydroxychloroquine dose. She was recently evaluated by [facility] and was found to have lumbar radiculopathy and scheduled for 2 epidural injections. She continues to have some pain in her wrists and hands. Rash on her arms has resolved. She stated that she had a couple of rounds of antibiotics for a UTI 3 weeks ago. Initial history: This is a 56-year-old female with a past medical history of psoriatic spondylitis, Sjogren's who presents as a new patient. She recently moved from [place]. 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 Afterwards patient had multiple symptoms including dry eyes and dry mouth, Raynaud's and low back pain as well as peripheral arthritis. She was on multiple DMARDs for her arthritis including methotrexate which she could not tolerate, she was on Arava but per patient it caused diarrhea so now she takes 10 mg twice a week. She has been on hydroxychloroquine all through. Follows up regularly with Ophthalmology. She was started on Remicade 3-4 years ago 5 mg/kg every 8 weeks with significant improvement in her overall symptoms especially her back pain. Patient's last dose of Remicade was in November of 2021. Patient states that feels significant worsening of her overall joint pain especially her back now that she has not received Remicade for 8 months. Continues to have dry eyes and dry mouth. Uses Restasis regularly. Uses Salagen twice daily for dry mouth without significant relief. Continues to use Biotene mouthwash and Biotene toothpaste. In 2018 patient fell down the stairs and broke both her ankles does fractures were thought to be osteoporotic in nature. She had ORIF, she then took alendronate for a few months but could not tolerated due to GI upset. She could not do Tymlos as patient was needle phobic. Patient received Evenity 02/03 doses. Last dose was November of 2021. Patient states that food gets stuck almost every meal and she has to drink some water to get food to pass. [facility] Medical History Chronic low back pain Discoid lupus Thyroid disease Raynaud disease Neuropathy Arthritis Anemia Philipp thyroiditis, fibrous variant Polyarticular arthritis Hypertension Osteopenia of both ankles Surgical History History of ankle surgery History of tonsillectomy History of knee replacement Family History Paternal Grandfather Rheumatoid arthritis Lupus Father ALS (amyotrophic lateral sclerosis) Mother Macular degeneration Social History Household Members: None Housing: Apartment Alcohol intake: never Patient Tobacco Use Status: Never used Tobacco e-Cigarette/Vaping Use: Never Used service: No Current occupational status: disabled Cognitive needs: No Hearing needs: No Vision needs: No Review of Systems Musc Reports back pain, Reports arthralgias, Reports radiating pain into limb and Reports stiffness Physical Exam Vital Signs: Last Vital Signs Pulse 85 08/03/23 14:34 BP 142/62 H 08/03/23 14:34 Pulse Ox 97 08/03/23 14:34 Oxygen Delivery Method Room Air 08/03/23 14:34 BMI result Body Mass Index 33.0 Const General: cooperative Nutritional Appearance: obese Orientation/consciousness: patient oriented x3 Limitations: no limitations HEENT Head: Yes normocephalic and Yes atraumatic Mouth: moist mucous membranes Resp Effort & Inspection: normal respiratory effort and able to speak in complete sentences Neuro General: patient oriented x3 Extrem Other: Bilateral wrist tenderness and pain with flexion and extension Few tender MCPs and PIP is bilaterally without significant swelling Normal range of motion of both elbows without pain Bilateral tender ankles without swelling Results Reviewed Results Reviewed: Labs 01/2022? Urinalysis With trace protein and trace bilirubin Protein/creatinine ratio normal SUAD 1-160 homogeneous CMP unremarkable SSA +++ DsDNA/Scl 70/Rangel/MIXING AND DISPENSING SUPERVISOR /RF/[facility] all -ve C4/C3 normal Hep C antibody/HepB core antibody IgM/HbS Ag/negative QuantiFERON negative Free T4 normal? ?TSH 7.99 MRI L-spine 04/2021 Impression multilevel spondylitic changes and focal disc protrusion at L3-L4 contacts the trend sending right L4 nerve root in the lateral recess without definite displacement DEXA 12/2018? L-spine T-score -1.2? Mean proximal fever -0.5? Mean femur neck -0.9 SI joint x-rays 10/2016? Findings the SI joints are intact with mild degenerative changes bilaterally.? Upper sacrum arcuate line are preserved.? Lower sacrum is obscured.? On the lateral view of the sacral coccyx no fracture or malalignment is seen.? Soft tissues unremarkable.? No radiopaque foreign bodies or soft tissue gas Assessment & Plan Assessment & Plan (1) Psoriatic arthritis: Comment: Per patient onset around 2003 Prednisone for about 10 years Could not tolerate methotrexate Humira was not effective Hydroxychloroquine throughout Remicade at 5 mgs/kg every 8 weeks started around 2015. DC 12/14 ineffective. +ve infliximab antibody Enbrel 01/14 DC 02/14 due to rash Unclear when Arava was started. But she only takes 10 mg twice a week, higher doses cause diarrhea Code(s): L40.50 - Arthropathic psoriasis, unspecified Plan: 57-year-old female with a past medical history of Sjogren's, discoid lupus & psoriatic spondylitis returns for follow-up. She is on hydroxychloroquine 200 mg Twice daily and leflunomide 10 mg twice weekly. Patient has not been taking the Taltz regularly. Patient will be scheduled for epidural injections within next couple of weeks. Advised patient to restart Taltz (loading dose 160 mg) 2 weeks after those injections then continue with 80 mg every 4 weeks Labs before next visit in 3 months (2) Rash: Code(s): R21 - Rash and other nonspecific skin eruption Plan: Unclear cause. ?Drug reaction. Patient stated that she had similar rashes when she was initially diagnosed with discoid lupus, the rash was on the back of her neck. The rash started soon after Enbrel was started. Enbrel has been discontinued. Rash was biopsied. Findings are nonspecific. Rash has resolved (3) Sjogren syndrome with keratoconjunctivitis: Code(s): M35.01 - Sjogren syndrome with keratoconjunctivitis Plan: SUAD 1-160 homogeneous. +++SSa. Dry eyes and dry mouth. Continue Restasis Continue Biotene mouthwash and Biotene toothpaste. (4) Chronic low back pain: Code(s): M54.50 - Low back pain, unspecified; G89.29 - Other chronic pain Qualifiers: Back pain laterality: midline Sciatica presence: unspecified whether sciatica present Qualified Code(s): M54.50 - Low back pain, unspecified; G89.29 - Other chronic pain Plan: Follows up with [facility] and recent L-spine MRI showed compression. She is planned for 2 epidural injections (5) Osteoporosis with fracture: Comment: Bilateral ankle fracture while walking down the stairs. Around 10 years of chronic corticosteroid exposure DEXA 12/2018? L-spine T-score -1.2? Mean proximal fever -0.5? Mean femur neck -0.9 DEXA 06/2022 L-spine T-score -0.4 Left femur neck-0.5 Left femur total -0.5 Took alendronate for about 6 months stopped due to GI intolerance Needle phobic could not use Tymlos Took 9 out of 12 doses of Evenity, last dose 11/2021 Code(s): M80.80XA - Other osteoporosis with current pathological fracture, unspecified site, initial encounter for fracture Qualifiers: Osteoporosis type: age-related Site of pathological fracture: tibia and fibula Encounter type: initial encounter Laterality: unspecified laterality Qualified Code(s): M80.069A - Age-related osteoporosis with current pathological fracture, unspecified lower leg, initial encounter for fracture Plan: Patient broke both her ankles were walking down the stairs in November of 2018 s/p ORIF. DEXA scan showed osteopenia -1.2 but due to long history of corticosteroid exposure she was deemed to have osteoporosis. Patient received Evenity for 9 doses with some improvement of her T-score. Patient agreed to start Reclast. It was approved. Patient has not been able to schedule it. Will discuss again next visit (6) Long-term use of hydroxychloroquine: Code(s): Z79.899 - Other residential (current) drug therapy Plan: Follow-up with ophthalmology Plan I spent 40 minutes reviewing patient's chart, evaluating patient, ordering diagnostic workup, counseling patient and documenting in the chart Orders: Orders Comprehensive Met. Panel 3 Months L40.50 - Arthropathic psoriasis, unspecified, M35.01 - Sjogren syndrome with keratoconjunctivitis Erythrocyte Sedimentation Rate 3 Months L40.50 - Arthropathic psoriasis, unspecified, M35.01 - Sjogren syndrome with keratoconjunctivitis Complete Blood Count Auto Diff 3 Months L40.50 - Arthropathic psoriasis, unspecified, M35.01 - Sjogren syndrome with keratoconjunctivitis C Reactive Protein 3 Months L40.50 - Arthropathic psoriasis, unspecified, M35.01 - Sjogren syndrome with keratoconjunctivitis Coding Level of Care Code Est Pt Level 5 (29636) Diagnoses Psoriatic arthritis L40.50 Rash R21 Sjogren syndrome with keratoconjunctivitis M35.01 Chronic midline low back pain, unspecified whether sciatica present M54.50; G89.29 Back pain laterality: midline Sciatica presence: unspecified whether sciatica present Pathological fracture of both tibia and fibula due to age-related osteoporosis, unspecified laterality, initial encounter M80.069A Osteoporosis type: age-related Site of pathological fracture: tibia and fibula Encounter type: initial encounter Laterality: unspecified laterality Long-term use of hydroxychloroquine Z79.899
[2023-08-03 14:34] VITALS: BP 142/62; PULSE 85; O2SAT 97; BMI 33.0
== END 2023-08-03 15:01 | disposition home or self-care (01) ==
PROVIDERS: PCP Nurse Practitioner Family; Visit Provider Student in an Organized Health Care Education/Training Program
DX: L40.50 Arthropathic psoriasis, unspecified (principal); M35.01 Sjogren syndrome with keratoconjunctivitis; R21 Rash and other nonspecific skin eruption; M54.50 Low back pain, unspecified; G89.29 Other chronic pain; M80.0 Age-related osteoporosis with current pathological fracture; Z79.899 Other long term (current) drug therapy
CPT/HCPCS: 99215

== ENCOUNTER → 2023-08-03 14:27 | Outpatient (BNVA) | payer MEDICARE, SELFPAY | PROVIDERS: PCP Nurse Practitioner Family; Visit Provider Student in an Organized Health Care Education/Training Program | DX: L40.50 Arthropathic psoriasis, unspecified (principal); M80.0 Age-related osteoporosis with current pathological fracture; M35.01 Sjogren syndrome with keratoconjunctivitis; R21 Rash and other nonspecific skin eruption; M54.50 Low back pain, unspecified; G89.29 Other chronic pain; Z79.899 Other long term (current) drug therapy | CPT/HCPCS: 99212 ==

== ENCOUNTER 2023-08-24 15:07 | Outpatient (AMB) | payer MEDICARE, MEDICAID, SELFPAY ==
--- NOTE | 2023-08-24 15:10 | A.OFFVISCC_ITS ---
Intake Vital Signs 08/24/23 15:16 BP 138/88 Blood Pressure Location Lt radial Position Sitting Pulse 75 Pulse Source Pulse Oximeter Pulse Oximetry (%) 96 Oxygen Delivery Method Room Air Intake Visit Reasons: MAT VISIT Intake Note: The patient is here for a a mat visit Windshield Repair Technician Required: No Allergies sulfa Allergy (Mild, Uncoded 08/24/23 15:10) Hives Do you need a note to return to daycare/school/sports/work: No HPI MAT VISIT HPI Details Patient presents for MAT appointment States she recently had a URI that she is still getting over Reports she started taking her suboxones as directed 2mg tid instead of BID and has found a significant decrease in withdrawal symptoms (anxiety, diaphoresis, low back pain). Has no concerns for recovery at this time [facility] Medical History Chronic low back pain Discoid lupus Thyroid disease Raynaud disease Neuropathy Arthritis Anemia Philipp thyroiditis, fibrous variant Polyarticular arthritis Hypertension Osteopenia of both ankles Surgical History History of ankle surgery History of tonsillectomy History of knee replacement Family History Paternal Grandfather Rheumatoid arthritis Lupus Father ALS (amyotrophic lateral sclerosis) Mother Macular degeneration Social History Household Members: None Housing: Apartment Alcohol intake: never Patient Tobacco Use Status: Never used Tobacco e-Cigarette/Vaping Use: Never Used service: No Current occupational status: disabled Cognitive needs: No Hearing needs: No Vision needs: No Review of Systems Const Reports as per HPI Physical Exam Vital Signs: Last Vital Signs Pulse 75 08/24/23 15:16 BP 138/88 08/24/23 15:16 Pulse Ox 96 08/24/23 15:16 Oxygen Delivery Method Room Air 08/24/23 15:16 Const General: cooperative and no acute distress Resp Effort & Inspection: normal respiratory effort Psych Appearance: grossly normal Mental Status: mental status grossly normal Speech and movement: Normal speech and movement present Affect: normal affect Attitude: cooperative Thought process: Normal thought process present Assessment & Plan Assessment & Plan (1) Opioid dependence: Code(s): F11.20 - Opioid dependence, uncomplicated Qualifiers: Substance use status: uncomplicated Qualified Code(s): F11.20 - Opioid dependence, uncomplicated Plan: -Tolerating suboxone 2mg TID, continue suboxone same dose -Mass pat reviewed -Follow up 8 weeks Medications: Refilled buprenorphine-naloxone 2-0.5 mg (Suboxone) 1 film sublingual TID 90 ea 1RF Coding Level of Care Code Est Pt Level 3 (69506) Diagnoses Uncomplicated opioid dependence F11.20 Substance use status: uncomplicated
[2023-08-24 15:16] VITALS: BP 138/88; PULSE 75; O2SAT 96
== END 2023-08-24 15:31 | disposition home or self-care (01) ==
PROVIDERS: PCP Nurse Practitioner Family; Visit Provider Nurse Practitioner Family
DX: F11.20 Opioid dependence, uncomplicated (principal)
CPT/HCPCS: 99213

== ENCOUNTER → 2023-08-24 15:07 | Outpatient (BNVA) | payer MEDICARE, SELFPAY | PROVIDERS: PCP Nurse Practitioner Family; Visit Provider Nurse Practitioner Family | DX: F11.20 Opioid dependence, uncomplicated (principal); Z51.81 Encounter for therapeutic drug level monitoring | CPT/HCPCS: 99212 ==

== ENCOUNTER 2023-09-18 14:44 | Outpatient (REF) | payer MEDICARE, MEDICAID, SELFPAY ==
--- NOTE | ~2023-09-18 | MM_ITS ---
EXAMINATION: MM SCREENING DIGITAL BREAST TOMOSYNTHESIS, BILATERAL CLINICAL INFORMATION: Screening. Asymptomatic. COMPARISON: Mammography: This study is compared with prior exams dating back to 2022. TECHNIQUE: Digital breast tomosynthesis is performed in both the craniocaudal and mediolateral oblique views along with computer-aided detection (CAD). Synthesized 2D images are generated from the tomosynthesis. FINDINGS: There are scattered areas of fibroglandular density (ACR BI-RADS breast composition Category b). There are no significant masses, abnormal calcifications, or other abnormalities. MM/MM tomosynthesis screening BI IMPRESSION: No mammographic evidence of malignancy. ASSESSMENT: BI-RADS BI-RADS 1 - Negative RECOMMENDATION: Routine annual mammography screening. 1 year F/U This examination should not preclude the clinical evaluation of a suspicious palpable abnormality. This patient's information was entered into a reminder system with a target due date for their next mammogram.
== END 2023-09-18 14:45 | disposition home or self-care (01) ==
LOC: HO.MAMMO 14:44
PROVIDERS: PCP Nurse Practitioner Family; Visit Provider Nurse Practitioner Family
DX: Z12.31 Encounter for screening mammogram for malignant neoplasm of breast (principal)
CPT/HCPCS: 77063; 77067

== ENCOUNTER → 2023-09-18 14:45 | Outpatient (BNV) | payer MEDICARE, MEDICAID, SELFPAY | PROVIDERS: PCP Nurse Practitioner Family; Visit Provider Radiology Diagnostic Radiology | DX: Z12.31 Encounter for screening mammogram for malignant neoplasm of breast (principal) | CPT/HCPCS: 77063; 77067 ==

== ENCOUNTER 2023-10-13 16:33 | Outpatient (AMB) | payer MEDICARE, MEDICAID, SELFPAY ==
[2023-10-13 16:38] VITALS: BP 126/76; PULSE 74; RESP 15; TEMP 36.6; O2SAT 97; BMI 32.3
--- NOTE | 2023-10-13 16:38 | A.OFFPC_ITS ---
Vital Signs 10/13/23 16:38 Height 5 ft 5 in Weight 194 lb 2 oz BMI 32.3 BP 126/76 Blood Pressure Location Rt brachial Position Sitting Respiration 15 Pulse 74 Pulse Source Pulse Oximeter Temp 97.9 F Temp Source Temporal Artery Scan Pulse Oximetry (%) 97 Oxygen Delivery Method Room Air Intake Visit Reasons: Follow up on meds Intake Note: Patient would like refill on omeprazole and ferrous sulfate for 90 day supply. Topology Teacher Required: No Accompanied by: Self / Same As Patient Allergies sulfa Allergy (Mild, Uncoded 10/13/23 16:50) Hives Medication List - Last Reconciled 10/13/23 by Sunni Browne CNP biotin 10 mg PO DAILY 30 days buprenorphine-naloxone 2-0.5 mg (Suboxone) 1 film sublingual TID cholecalciferol (vitamin D3) (Vitamin D3) 125 mcg PO DAILY cyanocobalamin (vitamin B-12) (Vitamin B-12) 2,500 mcg sublingual DAILY 30 days diclofenac epolamine 1.3% (Flector) 1 patch transdermal .qd 30 days duloxetine (Cymbalta) 60 mg PO DAILY 30 days ergocalciferol (vitamin D2) 50,000 units PO DAILY ferrous sulfate 325 mg PO DAILY 30 days gabapentin 300 mg PO TID 30 days hydroxychloroquine 200 mg PO BID hydroxyzine HCl 25 mg PO BEDTIME PRN leflunomide (Arava) 10 mg PO BID-TID levothyroxine 125 mcg PO DAILY 30 days metoprolol succinate ER 25 mg PO BID 30 days naloxone 4 mg/actuation (Narcan) 4 mg intranasal Q2M PRN omega 4-abh-cbt-fish oil 200-300-1,000 mg 1 cap PO DAILY 30 days omeprazole 20 mg PO DAILY 30 days ondansetron HCl 4 mg PO Q6H PRN tizanidine 2 mg PO Q8H PRN 30 days trazodone 150 mg PO BEDTIME PRN 30 days Tobacco use date assessed: 10/13/23 Dental Screening Dental Screen Date: 10/13/23 Did you have a dental visit in the last 12 months?: Yes Did you have a dental problem in the last 6 months where you did not have access to dental care?: No Was dental information given to patient?: Patient has dentist HPI HPI Comments History of Present Illness Details 57-year-old female presents for hyperten sivakumar, hypothyroidism, anxiety, and depression follow-up Her last office visit was on 03/2023. She notes that she was [place] for 3 months and recently return to [facility] She admits to taking her medications as prescribed without adverse reactions. She recently ran out of duloxetine and needs a refill She reports controlled anxiety and depression symptoms She offers no complaints and denies acute symptoms at this time TSH/T4 lab was ordered on 03/2023; however, she has not gotten blood work done [facility] Medical History Chronic low back pain Discoid lupus Thyroid disease Raynaud disease Neuropathy Arthritis Anemia Philipp thyroiditis, fibrous variant Polyarticular arthritis Hypertension Osteopenia of both ankles Surgical History History of ankle surgery History of tonsillectomy History of knee replacement Family History Paternal Grandfather Rheumatoid arthritis Lupus Father ALS (amyotrophic lateral sclerosis) Mother Macular degeneration Social History Household Members: None Housing: Apartment Alcohol intake: never Patient Tobacco Use Status: Never used Tobacco e-Cigarette/Vaping Use: Never Used service: No Current occupational status: disabled Cognitive needs: No Hearing needs: No Vision needs: No Questionnaire PHQ-9 Over the last 2 weeks, how often have you been bothered by any of the following problems? 1. Little interest or pleasure in doing things: not at all 2. Feeling down, depressed, or hopeless: not at all 3. Trouble falling or staying asleep, or sleeping too much: not at all 4. Feeling tired or having little energy: not at all 5. Poor appetite or overeating: not at all 6. Feeling bad about yourself - or that you are a failure or have let yourself or your family down: not at all 7. Trouble concentrating on things, such as reading the newspaper or watching television: not at all 8. Moving or speaking so slowly that other people could have noticed. Or the opposite - being so fidgety or restless that you have been moving around a lot more than usual: not at all 9. Thoughts that you would be better off or of hurting yourself in some way: not at all Total score: 0 Depression Screening Interpretation: Negative Depression Screening Done: Yes 94316 - PHQ-9 Billing: Yes Source: Developed by Drs. Corby Peter, Porsha Mata, Jose Harrell and colleagues, with an educational fausto from [employer]. Thrive Questionnaire Date Thrive assessed: 07/15/22 LATRICIA-7 AMB Questionnaire LATRICIA-7 Date LATRICIA - 7 assessed: 10/13/23 Feeling nervous, anxious, or on edge: 0 = Not at all Not being able to stop or control worryin = Not at all Worrying too much about different things: 0 = Not at all Trouble relaxin = Not at all Being so restless that it is hard to sit still: 0 = Not at all Becoming easily annoyed or irritable: 0 = Not at all Feeling afraid as if something awful might happen: 0 = Not at all Total LATRICIA-7 score (0-4 normal; 5-9 mild; 10-14 moderate; 15-21 severe): 0 Source: Developed by Drs. Corby Peter, Porsha Mata, Jose Harrell and colleagues, with an educational fausto from [employer]. Review of Systems Const Details: Const Denies chills, Denies fatigue, Denies fever(s), Denies headache(s) and Denies weakness ENT Denies dizziness and Denies headache(s) Card Denies chest pain, Denies lightheadedness, Denies dyspnea and Denies other (Palpitations) Resp Denies cough, Denies dyspnea, Denies wheezing and Denies other ( shortness of breath) GI Denies abdominal pain, Denies melena, Denies hematochezia, Denies change in bowel habits, Denies dyspepsia and Denies nausea Denies hematuria and Denies dysuria Musc Denies abnormal gait, Denies myalgias, Denies arthralgias, Denies numbness and Denies tingling Skin/Breast Denies rash, Denies unusual bruising and Denies wounds Neuro Denies abnormal gait, Denies dizziness, Denies headache(s), Denies memory loss, Denies numbness, Denies Sensory deficit (Neuro), Denies tingling and Denies weakness Psych Denies anxiety, Denies depression, Denies memory loss Endo Denies cold intolerance, Denies fatigue, Denies heat intolerance, Denies polydipsia and Denies polyuria Aller/Immun Denies wheezing Physical exam (Primary Care) Tobacco/Smoking Status: Tobacco use Status Tobacco use date assessed 04/01/23 04/01/23 13:34 Patient Tobacco Use Status Never used Tobacco 04/01/23 13:34 e-Cigarette/Vaping Use Never Used 04/01/23 13:34 Depression Screening Interpretation: Negative Thrive Assessment: Date of Thrive Assessment Date Thrive assessed 07/15/22 04/01/23 13:34 Const Other: General: no acute distress and well developed Nutritional Appearance: well nourished Orientation/consciousness: patient oriented x3 HENMT Head: Yes normocephalic and Yes atraumatic Eyes General: appearance normal, both eyes and all related structures Pupils: Equal, round and reactive pupils present EOM: EOMs intact bilaterally Resp Effort & Inspection: normal respiratory effort Auscultation: clear to auscultation bilaterally Cardio Rate: regular rate Rhythm: regular rhythm Heart sounds: S1 normal heart sound present, S2 normal heart sound present, no gallops, no murmurs and no rubs GI Palpation (GI): No Abdominal aortic bruit present, Soft to palpation, nontender, No hepatosplenomegaly present and No Rebound tenderness present Auscultation: normal bowel sounds General: Yes no CVA tenderness Back/Spine/Pelvis Back: no CVA tenderness Cervical Spine: cervical ROM normal and No Cervical spine tenderness Thoracic/Lumbar Spine: thoraco-lumbar ROM normal, No pain with thoraco-lumbar ROM, No thoracic spinal tenderness and No lumbar spinal tenderness Extrem General: Yes normal to inspection, No edema and No calf tenderness Skin General: warm and dry. Normal skin color. Normal skin turgor Neuro General: patient oriented x3, gait normal and no focal neuro deficit Cranial nerves: Yes Equal, round and reactive pupils present Cognition (Neuro): normal cognition Gait exam (Neuro): Normal gait present Sensory Exam: No Sensory deficit (Neuro) Psych Appearance: grossly normal Affect: normal affect Attitude: cooperative Thought process: Normal thought process present Assessment and Plan Assessment & Plan (1) Hypertension: Code(s): I10 - Essential (primary) hypertension Qualifiers: Hypertension type: primary hypertension Qualified Code(s): I10 - Essential (primary) hypertension Plan: Blood pressure is 126/76, within goal of less than 140/90 Continue current treatment regimen Low-sodium diet and routine exercise encouraged Advised to schedule appointment with Hematology for anemia and Gastroenterology for a colonoscopy as planned; get TSH/T4 blood work done Follow-up in 3 months or return sooner with symptoms or concerns Verbalized understanding and agreed with treatment plan (2) Anxiety: Code(s): F41.9 - Anxiety disorder, unspecified Plan: Reports controlled anxiety and depression symptoms PHQ-9 and LATRICIA-7 scores are normal Continue current treatment regimen Routine exercise encouraged Follow-up in 3 months or return sooner with symptoms or concerns Verbalized understanding and agreed with treatment plan (3) Depression: Code(s): F32.A - Depression, unspecified Plan: As above Medications: Changed From omeprazole 20 mg PO DAILY 30 days 30 caps 3RF To omeprazole 20 mg PO DAILY 90 days 90 caps 1RF Refilled ferrous sulfate 325 mg PO DAILY 30 days 30 tabs 3RF duloxetine (Cymbalta) 60 mg PO DAILY 30 days 30 caps 3RF ferrous sulfate 325 mg PO DAILY 30 days 30 tabs 1RF Coding Level of Care Code Est Pt Level 4 (96725) Complex EM visit Add On G2211 Diagnoses Primary hypertension I10 Hypertension type: primary hypertension Anxiety F41.9 Depression F32.A
== END 2023-10-13 17:08 | disposition home or self-care (01) ==
PROVIDERS: PCP Nurse Practitioner Family; Visit Provider Nurse Practitioner Family
DX: I10 Essential (primary) hypertension (principal); F41.9 Anxiety disorder, unspecified; F32.A Depression, unspecified
CPT/HCPCS: 99214; G2211

== ENCOUNTER 2023-10-27 14:26 | Outpatient (REF) | payer MEDICARE, MEDICAID, SELFPAY ==
[2023-10-27 15:03] LABS: MANUAL DIFF FLAG NO
[2023-10-27 15:41] LABS: Basophils Absolute Auto 0.1 X10*3/uL (0.0-0.2); Basophils Percent Auto 1.2 % (0-2); Eosinophils Absolute Auto 0.2 X10*3/uL (0.0-0.4); Eosinophils Percent Auto 4.1 % (0-4); Hematocrit 36.2 % (37.0-47.0); Hemoglobin 11.4 g/dl (12.0-16.0); Imm Gran Abs Auto 0.01 X10*3/uL (0.00-0.03); Imm Gran Pct Auto 0.2 % (0.0-0.4); Lymphocytes Percent Auto 47.1 % (20-40); Mean Corpuscular HGB Conc 31.5 g/dl (31.0-35.0); Mean Corpuscular Hemoglobin 27.8 pg (27.0-33.0); Mean Corpuscular Volume 88.3 fL (80.0-98.0); Mean Platelet Volume 10.3 fL (9.4-12.3); Monocytes Absolute Auto 0.4 X10*3/uL (0.1-1.2); Monocytes Percent Auto 8.4 % (2-11); Neutrophils Absolute Auto 1.6 x10*3/uL (2.0-8.3); Platelet Count 243 X10*3/uL (160-400); Red Cell Distribution Width 13.5 % (11.0-16.0); White Blood Count 4.2 X10*3/uL (4.8-10.8)
[2023-10-27 16:09] LABS: Alanine Aminotransferase 10 U/L (0-31); Alkaline Phosphatase 54 U/L (39-117); Anion Gap 12 (12-20); Aspartate Amino Transferase 18 U/L (5-31); Bilirubin Total 0.3 mg/dL (0.0-1.0); Blood Urea Nitrogen 16 mg/dL (9-16); C Reactive Protein 0.44 mg/dL (< or = 0.50); Carbon Dioxide 26 mmol/L (22-29); Chloride 106 mmol/L (96-108); Estimated Glomerular Filt Rate > 60; Glucose Random 98 mg/dL (60-115); Potassium 4.1 mmol/L (3.3-5.1); Sodium 140 mmol/L (135-145); Total Protein 7.1 g/dL (6.5-8.0)
[2023-10-27 16:35] LABS: TSH reflex Free T4 4.02 uIU/mL (0.32-4.0)
[2023-10-27 16:36] LABS: Erythrocyte Sedimentation Rate 10 MM/HR (0-20)
[2023-11-13 15:18] LABS: Blastomyces Ab ID Negative
[2023-11-13 15:19] LABS: Blastomyces Ab CF <1:8
== END 2023-10-27 14:27 | disposition home or self-care (01) ==
LOC: HO.LAB 14:26
PROVIDERS: Absent Provider Student in an Organized Health Care Education/Training Program; PCP Nurse Practitioner Family; Visit Provider Nurse Practitioner Family
DX: L08.9 Local infection of the skin and subcutaneous tissue, unspecified (principal); M80.80XA Other osteoporosis with current pathological fracture, unspecified site, initial encounter for fracture; L40.50 Arthropathic psoriasis, unspecified; M35.01 Sjogren syndrome with keratoconjunctivitis; E03.9 Hypothyroidism, unspecified; I10 Essential (primary) hypertension; F11.20 Opioid dependence, uncomplicated
CPT/HCPCS: 36415; 80053; 82306; 84439; 84443; 85025; 85652; 86140; 86612; 99212

== ENCOUNTER 2023-10-27 14:26 | Outpatient (AMB) | payer MEDICARE, MEDICAID, SELFPAY ==
[2023-10-27 14:44] VITALS: BP 164/104; PULSE 61; O2SAT 95
--- NOTE | 2023-10-27 14:44 | A.OFFVISCC_ITS ---
Vital Signs 10/27/23 14:44 BP 164/104 H Blood Pressure Location Lt brachial Position Sitting Pulse 61 Pulse Source Pulse Oximeter Pulse Oximetry (%) 95 Oxygen Delivery Method Room Air Intake Visit Reasons: MAT VISIT Allergies sulfa Allergy (Mild, Uncoded 10/13/23 16:50) Hives HPI HPI MAT VISIT: Details: Patient presents for MAT appointment Has no concerns today Hypertensive at visit, asymptomatic Has been taking suboxone 2mg TID and tolerating well Denies side effects or withdrawal symptoms HPI Comments Details: Patient presents for MAT visit [facility] Medical History Chronic low back pain Discoid lupus Thyroid disease Raynaud disease Neuropathy Arthritis Anemia Philipp thyroiditis, fibrous variant Polyarticular arthritis Hypertension Osteopenia of both ankles Surgical History History of ankle surgery History of tonsillectomy History of knee replacement Family History Paternal Grandfather Rheumatoid arthritis Lupus Father ALS (amyotrophic lateral sclerosis) Mother Macular degeneration Social History Household Members: None Housing: Apartment Alcohol intake: never Patient Tobacco Use Status: Never used Tobacco e-Cigarette/Vaping Use: Never Used service: No Current occupational status: disabled Cognitive needs: No Hearing needs: No Vision needs: No Review of Systems Const Reports as per HPI Physical Exam Const General: cooperative and no acute distress Resp Effort & Inspection: normal respiratory effort and able to speak in complete sentences Psych Appearance: grossly normal Mental Status: mental status grossly normal Speech and movement: Normal speech and movement present Affect: normal affect Attitude: cooperative Thought process: Normal thought process present Assessment & Plan Assessment & Plan (1) Hypertension: Code(s): I10 - Essential (primary) hypertension Category: Medical Qualifiers: Hypertension type: primary hypertension Qualified Code(s): I10 - Essential (primary) hypertension Plan: -Discussed with her dangerous symptoms of high blood pressure to watch for (vision changes, headache, chest pain), and if she experiences any of these to present to the ED -Instructed her to monitor her b/p at home and to follow up with PCP if they continue to remain elevated (2) Opioid dependence: Code(s): F11.20 - Opioid dependence, uncomplicated Category: Medical Qualifiers: Substance use status: uncomplicated Qualified Code(s): F11.20 - Opioid dependence, uncomplicated Plan: -Mass pat reviewed -Continue suboxone at current dose -Follow up 8 weeks Medications: Refilled buprenorphine-naloxone 2-0.5 mg (Suboxone) 1 film sublingual TID 90 ea 1RF
== END 2023-10-27 14:41 | disposition home or self-care (01) ==
LOC: HO.HCC 14:26
PROVIDERS: PCP Nurse Practitioner Family; Visit Provider Nurse Practitioner Family
DX: F11.20 Opioid dependence, uncomplicated (principal); I10 Essential (primary) hypertension
CPT/HCPCS: 99213

== ENCOUNTER 2023-12-23 14:46 | Outpatient (AMB) | payer MEDICARE, MEDICAID, SELFPAY ==
[2023-12-23 14:59] VITALS: BP 136/78; PULSE 68; O2SAT 97; BMI 31.6
--- NOTE | 2023-12-23 14:59 | MHC.OFFVIS ---
Vital Signs 12/23/23 14:59 Height 5 ft 5 in Weight 189 lb 13.088 oz BMI 31.6 BP 136/78 Blood Pressure Location Lt brachial Position Sitting Pulse 68 Pulse Source Pulse Oximeter Pulse Oximetry (%) 97 Oxygen Delivery Method Room Air Intake Visit Reasons: PSA/lm Intake Note: Patient last seen on 08/03/23 present today for follow up and test results. Allergies sulfa Allergy (Mild, Uncoded 12/23/23 15:00) Hives Medication List - Last Reconciled 12/23/23 by Sunni Samuels MD biotin 10 mg PO DAILY 30 days buprenorphine-naloxone 2-0.5 mg (Suboxone) 1 film sublingual TID cholecalciferol (vitamin D3) (Vitamin D3) 125 mcg PO DAILY 90 days cyanocobalamin (vitamin B-12) (Vitamin B-12) 2,500 mcg sublingual DAILY 30 days diclofenac epolamine 1.3% (Flector) 1 patch transdermal .qd 30 days duloxetine (Cymbalta) 60 mg PO DAILY 30 days ferrous sulfate 325 mg PO DAILY 30 days gabapentin 300 mg PO TID 30 days hydroxychloroquine 200 mg PO BID hydroxyzine HCl 25 mg PO BEDTIME PRN leflunomide (Arava) 10 mg PO BID-TID levothyroxine 137 mcg PO DAILY 30 days meloxicam 7.5 mg PO BID metoprolol succinate ER 25 mg PO BID 30 days naloxone 4 mg/actuation (Narcan) 4 mg intranasal Q2M PRN omega 5-jnb-nsk-fish oil 200-300-1,000 mg 1 cap PO DAILY 30 days omeprazole 20 mg PO DAILY 90 days ondansetron HCl 4 mg PO Q6H PRN Taltz Autoinjector (ixekizumab) 80 mg subcut Q4W NS tizanidine 2 mg PO Q8H PRN 30 days trazodone 150 mg PO BEDTIME PRN 30 days HPI Comments Details: 57-year-old female with psoriatic arthritis, Sjogren's, discoid lupus presents for follow-up. She remains on hydroxychloroquine 20 mg Twice daily, Taltz 80 mg q.4 weeks and Arava 10 mg twice a week. She stated that she had multiple injections by Pain Management and she is disappointed in the results. She states that she will be going for more injections she was recently started on meloxicam 7.5 mg daily about a week ago. Helped some of the inflammation in the back. She states that she has been having pain and stiffness of her hands, knuckles, ankles, morning stiffness lasting approximately 1 hour. Did not improve with meloxicam. Denies any skin rashes. Recently started on vitamin-D by her PCP Initial history: This is a 56-year-old female with a past medical history of psoriatic spondylitis, Sjogren's who presents as a new patient. She recently moved from [facility]. 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 Afterwards patient had multiple symptoms including dry eyes and dry mouth, Raynaud's and low back pain as well as peripheral arthritis. She was on multiple DMARDs for her arthritis including methotrexate which she could not tolerate, she was on Arava but per patient it caused diarrhea so now she takes 10 mg twice a week. She has been on hydroxychloroquine all through. Follows up regularly with Ophthalmology. She was started on Remicade 3-4 years ago 5 mg/kg every 8 weeks with significant improvement in her overall symptoms especially her back pain. Patient's last dose of Remicade was in November of 2021. Patient states that feels significant worsening of her overall joint pain especially her back now that she has not received Remicade for 8 months. Continues to have dry eyes and dry mouth. Uses Restasis regularly. Uses Salagen twice daily for dry mouth without significant relief. Continues to use Biotene mouthwash and Biotene toothpaste. In 2018 patient fell down the stairs and broke both her ankles does fractures were thought to be osteoporotic in nature. She had ORIF, she then took alendronate for a few months but could not tolerated due to GI upset. She could not do Tymlos as patient was needle phobic. Patient received Evenity 02/03 doses. Last dose was November of 2021. Patient states that food gets stuck almost every meal and she has to drink some water to get food to pass. [facility] Medical History Chronic low back pain Discoid lupus Thyroid disease Raynaud disease Neuropathy Arthritis Anemia Philipp thyroiditis, fibrous variant Polyarticular arthritis Hypertension Osteopenia of both ankles Surgical History History of ankle surgery History of tonsillectomy History of knee replacement Family History Paternal Grandfather Rheumatoid arthritis Lupus Father ALS (amyotrophic lateral sclerosis) Mother Macular degeneration Social History Household Members: None Housing: Apartment Alcohol intake: never Patient Tobacco Use Status: Never used Tobacco e-Cigarette/Vaping Use: Never Used service: No Current occupational status: disabled Cognitive needs: No Hearing needs: No Vision needs: No Female Reproductive History Menstrual Total pregnancies: 0 Review of Systems Musc Reports back pain, Reports arthralgias, Reports joint swelling and Reports stiffness Physical Exam Vital Signs: Last Vital Signs Pulse 68 12/23/23 14:59 BP 136/78 12/23/23 14:59 Pulse Ox 97 12/23/23 14:59 Oxygen Delivery Method Room Air 12/23/23 14:59 BMI result Body Mass Index 31.6 Const General: cooperative Nutritional Appearance: obese Orientation/consciousness: patient oriented x3 Limitations: no limitations HEENT Head: Yes normocephalic and Yes atraumatic Mouth: moist mucous membranes Resp Effort & Inspection: normal respiratory effort and able to speak in complete sentences Neuro General: patient oriented x3 Extrem Other: Bilateral wrist tenderness and pain with flexion and extension Bilateral 1st through 5th MCP tenderness Bilateral tender ankles without swelling Results Reviewed Results Reviewed: Labs 01/2022? Urinalysis With trace protein and trace bilirubin Protein/creatinine ratio normal SUAD 1-160 homogeneous CMP unremarkable SSA +++ DsDNA/Scl 70/Rangel/FOREMAN OR SUPERVISOR AND OPERATOR /RF/CCP all -ve C4/C3 normal Hep C antibody/HepB core antibody IgM/HbS Ag/negative QuantiFERON negative Free T4 normal? ?TSH 7.99 MRI L-spine 04/2021 Impression multilevel spondylitic changes and focal disc protrusion at L3-L4 contacts the trend sending right L4 nerve root in the lateral recess without definite displacement DEXA 12/2018? L-spine T-score -1.2? Mean proximal fever -0.5? Mean femur neck -0.9 SI joint x-rays 10/2016? Findings the SI joints are intact with mild degenerative changes bilaterally.? Upper sacrum arcuate line are preserved.? Lower sacrum is obscured.? On the lateral view of the sacral coccyx no fracture or malalignment is seen.? Soft tissues unremarkable.? No radiopaque foreign bodies or soft tissue gas Assessment & Plan Assessment & Plan (1) Psoriatic arthritis: Comment: Per patient onset around 2003 Prednisone for about 10 years Could not tolerate methotrexate Humira was not effective Hydroxychloroquine throughout Remicade at 5 mgs/kg every 8 weeks started around 2015. DC 12/14 ineffective. +ve infliximab antibody Enbrel 01/14 DC 02/14 due to rash Taltz 08/2023 Unclear when Arava was started. But she only takes 10 mg twice a week, higher doses cause diarrhea Code(s): L40.50 - Arthropathic psoriasis, unspecified Category: Medical Plan: 57-year-old female with a past medical history of Sjogren's, discoid lupus & psoriatic spondylitis returns for follow-up. She is on hydroxychloroquine 200 mg Twice daily, Taltz 80 mg q.4 weeks and leflunomide 10 mg twice weekly. She continues to have minimal swelling of her wrists, pain and morning stiffness of her wrists, MCPs and ankles. Increase Arava to 10 mg daily Continue other meds as prescribed Labs before next visit in in 3 months (2) Sjogren syndrome with keratoconjunctivitis: Code(s): M35.01 - Sjogren syndrome with keratoconjunctivitis Category: Medical Plan: SUAD 1-160 homogeneous. +++SSa. Dry eyes and dry mouth. Continue Restasis Continue Biotene mouthwash and Biotene toothpaste. (3) Chronic low back pain: Code(s): M54.50 - Low back pain, unspecified; G89.29 - Other chronic pain Category: Medical Qualifiers: Back pain laterality: midline Sciatica presence: unspecified whether sciatica present Qualified Code(s): M54.50 - Low back pain, unspecified; G89.29 - Other chronic pain Plan: Follows up with [facility] and recent L-spine MRI showed compression. Per patient she has had a few injections with disappointing results, she is going back for further procedures (4) Osteoporosis with fracture: Comment: Bilateral ankle fracture while walking down the stairs. Around 10 years of chronic corticosteroid exposure DEXA 12/2018? L-spine T-score -1.2? Mean proximal fever -0.5? Mean femur neck -0.9 DEXA 06/2022 L-spine T-score -0.4 Left femur neck-0.5 Left femur total -0.5 Took alendronate for about 6 months stopped due to GI intolerance Needle phobic could not use Tymlos Took 9 out of 12 doses of Evenity, last dose 11/2021 Code(s): M80.80XA - Other osteoporosis with current pathological fracture, unspecified site, initial encounter for fracture Category: Medical Qualifiers: Osteoporosis type: age-related Site of pathological fracture: tibia and fibula Encounter type: initial encounter Laterality: unspecified laterality Qualified Code(s): M80.069A - Age-related osteoporosis with current pathological fracture, unspecified lower leg, initial encounter for fracture Plan: Patient broke both her ankles were walking down the stairs in November of 2018 s/p ORIF. DEXA scan showed osteopenia -1.2 but due to long history of corticosteroid exposure she was deemed to have osteoporosis. Patient received Evenity for 9 doses with some improvement of her T-score. Patient agreed to start Reclast. It was approved. Patient has not been able to schedule it. Will discuss again next visit Continue vitamin-D supplementation (5) Long-term use of hydroxychloroquine: Code(s): Z79.899 - Other long term care pharmacist (current) drug therapy Category: Medical Plan: Follow-up with ophthalmology. Education Paraprofessional is at [facility] I spent 40 minutes reviewing patient's chart, evaluating patient, ordering diagnostic workup, counseling patient and documenting in the chart Orders: Orders Comprehensive Met. Panel 3 Months L40.50 - Arthropathic psoriasis, unspecified Hepatitis A,B,C Profile 3 Months Z11.59 - Encounter for screening for other viral diseases Complete Blood Count Auto Diff 3 Months L40.50 - Arthropathic psoriasis, unspecified C Reactive Protein 3 Months L40.50 - Arthropathic psoriasis, unspecified Erythrocyte Sedimentation Rate 3 Months L40.50 - Arthropathic psoriasis, unspecified T Spot TB 3 Months Z11.7 - Encounter for testing for latent tuberculosis infection Medications: Changed From leflunomide (Arava) 10 mg PO BID-TID To leflunomide 10 mg PO DAILY 90 tabs 0RF Refilled hydroxychloroquine 200 mg PO BID 180 tabs 0RF Coding Level of Care Code Est Pt Level 5 (00671) Diagnoses Psoriatic arthritis L40.50 Sjogren syndrome with keratoconjunctivitis M35.01 Chronic midline low back pain, unspecified whether sciatica present M54.50; G89.29 Back pain laterality: midline Sciatica presence: unspecified whether sciatica present Pathological fracture of both tibia and fibula due to age-related osteoporosis, unspecified laterality, initial encounter M80.069A Osteoporosis type: age-related Site of pathological fracture: tibia and fibula Encounter type: initial encounter Laterality: unspecified laterality Long-term use of hydroxychloroquine Z79.899
== END 2023-12-23 15:40 | disposition home or self-care (01) ==
PROVIDERS: PCP Nurse Practitioner Family; Visit Provider Student in an Organized Health Care Education/Training Program
DX: L40.50 Arthropathic psoriasis, unspecified (principal); M35.01 Sjogren syndrome with keratoconjunctivitis; M54.50 Low back pain, unspecified; G89.29 Other chronic pain; M80.0 Age-related osteoporosis with current pathological fracture; Z79.899 Other long term (current) drug therapy
CPT/HCPCS: 99215

== ENCOUNTER → 2023-12-23 14:46 | Outpatient (BNVA) | payer MEDICARE, MEDICAID, SELFPAY | PROVIDERS: PCP Nurse Practitioner Family; Visit Provider Student in an Organized Health Care Education/Training Program | DX: L40.50 Arthropathic psoriasis, unspecified (principal); M35.01 Sjogren syndrome with keratoconjunctivitis; M54.50 Low back pain, unspecified; M80.072A Age-related osteoporosis with current pathological fracture, left ankle and foot, initial encounter for fracture; M80.071A Age-related osteoporosis with current pathological fracture, right ankle and foot, initial encounter for fracture; L93.0 Discoid lupus erythematosus; Z79.899 Other long term (current) drug therapy; Z71.2 Person consulting for explanation of examination or test findings; G89.29 Other chronic pain | CPT/HCPCS: 99212 ==

== ENCOUNTER 2023-12-29 17:11 | Outpatient (AMB) | payer MEDICARE, MEDICAID, SELFPAY ==
--- NOTE | 2023-12-29 17:12 | MHC.PC.OV ---
Vital Signs 12/29/23 17:20 Height 5 ft 5 in Weight 190 lb BMI 31.6 BP 138/82 Blood Pressure Location Rt brachial Position Sitting Respiration 16 Pulse 75 Pulse Source Pulse Oximeter Temp 98.5 F Temp Source Oral Pulse Oximetry (%) 95 Oxygen Delivery Method Room Air Intake Visit Reasons: 3 mos HTN, anxiety, depression - see comments Intake Note: patient here to follow up on HTN,Anxiety, and depression. Ultrasonic Seaming Machine Operator Required: No Is last menstrual period known: No Post menopausal: No Patient : No Allergies sulfa Allergy (Mild, Uncoded 12/23/23 15:00) Hives Tobacco use date assessed: 12/29/23 Dental Screening Dental Screen Date: 12/29/23 Did you have a dental visit in the last 12 months?: Yes Was dental information given to patient?: Patient has dentist HPI HPI Comments History of Present Illness Details 58-year-old female presents for hypertension, vitamin-D deficiency, hypothyroidism, anxiety, and depression follow-up She admits to taking her medications as prescribed without adverse reactions She reports controlled anxiety and depressive symptoms She admits to making healthy dietary choices, sleeping well, and exercising routinely She offers no complaints and denies acute symptoms at this time She did not get vitamin-D and TSH/T4 blood work done before this visit as planned She is followed by [facility] and notes that she recently had spinal nerve ablation of L4 and L5 with significant relief [facility] Medical History Chronic low back pain Discoid lupus Thyroid disease Raynaud disease Neuropathy Arthritis Anemia Philipp thyroiditis, fibrous variant Polyarticular arthritis Hypertension Osteopenia of both ankles Surgical History History of ankle surgery History of tonsillectomy History of knee replacement Family History Paternal Grandfather Rheumatoid arthritis Lupus Father ALS (amyotrophic lateral sclerosis) Mother Macular degeneration Social History Household Members: None Housing: Apartment Alcohol intake: never Patient Tobacco Use Status: Never used Tobacco e-Cigarette/Vaping Use: Never Used service: No Current occupational status: disabled Cognitive needs: No Hearing needs: No Vision needs: No Questionnaire PHQ-9 Over the last 2 weeks, how often have you been bothered by any of the following problems? 1. Little interest or pleasure in doing things: not at all 2. Feeling down, depressed, or hopeless: not at all 3. Trouble falling or staying asleep, or sleeping too much: several days 4. Feeling tired or having little energy: not at all 5. Poor appetite or overeating: not at all 6. Feeling bad about yourself - or that you are a failure or have let yourself or your family down: not at all 7. Trouble concentrating on things, such as reading the newspaper or watching television: not at all 8. Moving or speaking so slowly that other people could have noticed. Or the opposite - being so fidgety or restless that you have been moving around a lot more than usual: not at all 9. Thoughts that you would be better off or of hurting yourself in some way: not at all Total score: 1 Depression Screening Interpretation: Negative Depression Screening Done: Yes 79205 - PHQ-9 Billing: Yes Source: Developed by Drs. Corby Peter, Porsha Mata, Jose Harrell and colleagues, with an educational fausto from [employer]. Thrive Questionnaire Date Thrive assessed: 07/15/22 LATRICIA-7 AMB Questionnaire LATRICIA-7 Date LATRICIA - 7 assessed: 12/29/23 Feeling nervous, anxious, or on edge: 0 = Not at all Not being able to stop or control worryin = Not at all Worrying too much about different things: 0 = Not at all Trouble relaxin = Not at all Being so restless that it is hard to sit still: 0 = Not at all Becoming easily annoyed or irritable: 0 = Not at all Feeling afraid as if something awful might happen: 0 = Not at all Total LATRICIA-7 score (0-4 normal; 5-9 mild; 10-14 moderate; 15-21 severe): 0 Source: Developed by Drs. Corby Peter, Porsha aMta, Jose Harrell and colleagues, with an educational fausto from [employer]. LATRICIA-7 Assessment Billing LATRICIA-7 Assessment Tool: LATRICIA-7 Assessment 06590 Review of Systems Const Details: Const Denies chills, Denies fatigue, Denies fever(s), Denies headache(s) and Denies weakness ENT Denies dizziness and Denies headache(s) Card Denies chest pain, Denies lightheadedness, Denies dyspnea and Denies other (Palpitations) Resp Denies cough, Denies dyspnea, Denies wheezing and Denies other ( shortness of breath) GI Denies abdominal pain, Denies melena, Denies hematochezia, Denies change in bowel habits, Denies dyspepsia and Denies nausea Denies hematuria and Denies dysuria Musc Denies abnormal gait, Denies myalgias, Denies arthralgias, Denies numbness and Denies tingling Skin/Breast Denies rash, Denies unusual bruising and Denies wounds Neuro Denies abnormal gait, Denies dizziness, Denies headache(s), Denies memory loss, Denies numbness, Denies Sensory deficit (Neuro), Denies tingling and Denies weakness Psych Denies anxiety, Denies depression, Denies memory loss Endo Denies cold intolerance, Denies fatigue, Denies heat intolerance, Denies polydipsia and Denies polyuria Aller/Immun Denies wheezing Physical exam (Primary Care) Tobacco/Smoking Status: Tobacco use Status Tobacco use date assessed 12/29/23 12/29/23 17:18 Patient Tobacco Use Status Never used Tobacco 12/29/23 17:14 e-Cigarette/Vaping Use Never Used 12/29/23 17:14 Depression Screening Interpretation: Negative Thrive Assessment: Date of Thrive Assessment Date Thrive assessed 07/15/22 12/29/23 17:14 Const Other: General: no acute distress and well developed Nutritional Appearance: well nourished Orientation/consciousness: patient oriented x3 [facility] Head: Yes normocephalic and Yes atraumatic Eyes General: appearance normal, both eyes and all related structures Pupils: Equal, round and reactive pupils present EOM: EOMs intact bilaterally Resp Effort & Inspection: normal respiratory effort Auscultation: clear to auscultation bilaterally Cardio Rate: regular rate Rhythm: regular rhythm Heart sounds: S1 normal heart sound present, S2 normal heart sound present, no gallops, no murmurs and no rubs GI Palpation (GI): No Abdominal aortic bruit present, Soft to palpation, nontender, No hepatosplenomegaly present and No Rebound tenderness present Auscultation: normal bowel sounds General: Yes no CVA tenderness Back/Spine/Pelvis Back: no CVA tenderness Cervical Spine: cervical ROM normal and No Cervical spine tenderness Thoracic/Lumbar Spine: thoraco-lumbar ROM normal, No pain with thoraco-lumbar ROM, No thoracic spinal tenderness and No lumbar spinal tenderness Extrem General: Yes normal to inspection, No edema and No calf tenderness Skin General: warm and dry. Normal skin color. Normal skin turgor Neuro General: patient oriented x3, gait normal and no focal neuro deficit Cranial nerves: Yes Equal, round and reactive pupils present Cognition (Neuro): normal cognition Gait exam (Neuro): Normal gait present Sensory Exam: No Sensory deficit (Neuro) Psych Appearance: grossly normal Affect: normal affect Attitude: cooperative Thought process: Normal thought process present Assessment and Plan Assessment & Plan (1) Hypertension: Code(s): I10 - Essential (primary) hypertension Qualifiers: Hypertension type: primary hypertension Qualified Code(s): I10 - Essential (primary) hypertension Plan: Blood pressure is 138/82, within goal of less than 140/90 Continue current treatment regimen Low-sodium diet encouraged Follow-up in 3 months or sooner with symptoms or concerns Verbalized understanding and agreed with the treatment plan (2) Hypothyroidism: Code(s): E03.9 - Hypothyroidism, unspecified Plan: Recent TSH a month ago was slightly elevated, 4.02; free T4 was normal. Levothyroxine was increased to 137 mcg daily She did not get blood work done for this visit Encouraged to continue current treatment regimen Advised to get blood work done as soon as possible. Will review results and make changes as needed Verbalized understanding and agreed with the treatment plan (3) Vitamin D deficiency: Code(s): E55.9 - Vitamin D deficiency, unspecified Plan: Recent vitamin-D level a month ago was significantly low, 14.0 She was started on vitamin D3 5000 units daily She did not get blood work done for this visit Advised to get blood work done as soon as possible. Will review results and make changes as needed Verbalized understanding and agreed with the treatment plan (4) Anxiety: Code(s): F41.9 - Anxiety disorder, unspecified Plan: Controlled anxiety and depressive symptoms PHQ-9 and LATRICIA-7 scores are normal Continue current treatment regimen Routine exercise encouraged Follow-up in 3 months or sooner with symptoms or concerns Verbalized understanding and agreed with the treatment plan (5) Depression: Code(s): F32.A - Depression, unspecified Plan: As above Coding Level of Care Code Est Pt Level 4 (40714) Complex EM visit Add On G2211 Diagnoses Primary hypertension I10 Hypertension type: primary hypertension Hypothyroidism E03.9 Vitamin D deficiency E55.9 Anxiety F41.9 Depression F32.A Additional Codes LATRICIA-7 Assessment Billing - LATRICIA-7 Assessment Tool: LATRICIA-7 Assessment 74088 ([id number])
[2023-12-29 17:20] VITALS: BP 138/82; PULSE 75; RESP 16; TEMP 36.9; O2SAT 95; BMI 31.6
== END 2023-12-29 17:36 | disposition home or self-care (01) ==
PROVIDERS: PCP Nurse Practitioner Family; Visit Provider Nurse Practitioner Family
DX: I10 Essential (primary) hypertension (principal); E03.9 Hypothyroidism, unspecified; E55.9 Vitamin D deficiency, unspecified; F41.9 Anxiety disorder, unspecified; F32.A Depression, unspecified
CPT/HCPCS: 99214; G2211

== ENCOUNTER 2024-02-29 14:36 | Outpatient (AMB) | payer MEDICARE, MEDICAID, SELFPAY ==
--- NOTE | 2024-02-29 14:47 | A.OFFVISCC_ITS ---
Intake Visit Reasons: MAT Office Allergies sulfa Allergy (Mild, Uncoded 12/23/23 15:00) Hives HPI HPI MAT Office: Details: Patient presents for follow up Currently prescribed Suboxone 2mg TID [facility] following --for nerve ablation tolerating current suboxone dose PFS Medical History Chronic low back pain Discoid lupus Thyroid disease Raynaud disease Neuropathy Arthritis Anemia Philipp thyroiditis, fibrous variant Polyarticular arthritis Hypertension Osteopenia of both ankles Surgical History History of ankle surgery History of tonsillectomy History of knee replacement Family History Paternal Grandfather Rheumatoid arthritis Lupus Father ALS (amyotrophic lateral sclerosis) Mother Macular degeneration Social History Household Members: None Housing: Apartment Alcohol intake: never Patient Tobacco Use Status: Never used Tobacco e-Cigarette/Vaping Use: Never Used service: No Current occupational status: disabled Cognitive needs: No Hearing needs: No Vision needs: No Review of Systems Const Reports as per HPI and Reports no additional complaints Physical Exam Const General: cooperative, healthy appearing, comfortable and well groomed Orientation/consciousness: patient oriented x3 Limitations: no limitations Neuro General: patient oriented x3 Assessment & Plan Assessment & Plan (1) Opioid dependence: Code(s): F11.20 - Opioid dependence, uncomplicated Category: Medical Qualifiers: Substance use status: uncomplicated Qualified Code(s): F11.20 - Opioid dependence, uncomplicated Plan: * continue suboxone at current dose * follow up 2 months telehealth Medications: Refilled buprenorphine-naloxone 2-0.5 mg (Suboxone) 1 film sublingual TID 90 ea 0RF
== END 2024-02-29 15:32 | disposition home or self-care (01) ==
PROVIDERS: PCP Nurse Practitioner Family; Visit Provider Nurse Practitioner Psychiatric/Mental Health
DX: F11.20 Opioid dependence, uncomplicated (principal)
CPT/HCPCS: 99213

== ENCOUNTER → 2024-02-29 14:36 | Outpatient (BNVA) | payer MEDICARE, MEDICAID, SELFPAY | PROVIDERS: PCP Nurse Practitioner Family; Visit Provider Nurse Practitioner Psychiatric/Mental Health ==

== ENCOUNTER 2024-02-29 14:57 | Outpatient (REF) | payer MEDICARE, MEDICAID, SELFPAY ==
[2024-02-29 15:28] LABS: MANUAL DIFF FLAG NO
[2024-02-29 17:03] LABS: Basophils Percent Auto 0.5 % (0-2); Eosinophils Absolute Auto 0.2 X10*3/uL (0.0-0.4); Eosinophils Percent Auto 4.6 % (0-4); Hematocrit 37.9 % (37.0-47.0); Hemoglobin 11.9 g/dl (12.0-16.0); Imm Gran Abs Auto 0.01 X10*3/uL (0.00-0.03); Imm Gran Pct Auto 0.2 % (0.0-0.4); Lymphocytes Absolute Auto 1.9 X10*3/uL (1.2-4.9); Lymphocytes Percent Auto 46.7 % (20-40); Mean Corpuscular HGB Conc 31.4 g/dl (31.0-35.0); Mean Corpuscular Hemoglobin 27.2 pg (27.0-33.0); Mean Corpuscular Volume 86.7 fL (80.0-98.0); Mean Platelet Volume 10.1 fL (9.4-12.3); Monocytes Absolute Auto 0.4 X10*3/uL (0.1-1.2); Monocytes Percent Auto 8.6 % (2-11); Neutrophils Absolute Auto 1.6 x10*3/uL (2.0-8.3); Neutrophils Percent Auto 39.4 % (45-73); Platelet Count 229 X10*3/uL (160-400); Red Blood Count 4.37 X10*6/uL (4.20-5.50); Red Cell Distribution Width 14.4 % (11.0-16.0); White Blood Count 4.1 X10*3/uL (4.8-10.8)
[2024-02-29 17:30] LABS: Alanine Aminotransferase 10 U/L (0-31); Albumin Level 4.1 g/dL (3.5-5.0); Alkaline Phosphatase 48 U/L (39-117); Anion Gap 12 (12-20); Aspartate Amino Transferase 17 U/L (5-31); Bilirubin Total 0.3 mg/dL (0.0-1.0); Blood Urea Nitrogen 14 mg/dL (9-16); C Reactive Protein 0.59 mg/dL (< or = 0.50); Calcium 9.1 mg/dL (8.4-10.2); Carbon Dioxide 31 mmol/L (22-29); Chloride 104 mmol/L (96-108); Estimated Glomerular Filt Rate > 60; Glucose Random 115 mg/dL (60-115); Sodium 143 mmol/L (135-145); Total Protein 7.3 g/dL (6.5-8.0)
[2024-02-29 17:42] LABS: TSH reflex Free T4 3.27 uIU/mL (0.32-4.0); Vitamin D 25-OH Total 49.9 ng/mL (>30)
[2024-02-29 17:43] LABS: Erythrocyte Sedimentation Rate 6 MM/HR (0-20)
[2024-03-01 04:26] LABS: HBS Num1 0.47 mIU/mL (0-7.99); HBc Num1 0.15 S/CO (0.00-0.79); HBsAGNum1 0.43 S/CO (0.00-0.99); Hepatitis A Antibody IgM 0.24 Index (0-0.79); Hepatitis B Core Antibody Nonreactive (Nonreactive); Hepatitis B Surface Antigen Negative (Negative); ~HepC Num1 0.31 S/CO (0.00-0.79); ~Hepatitis A Antibody IgM Nonreactive (Nonreactive); ~Hepatitis B Surface Antibody NONREACTIVE (Nonreactive); ~Hepatitis C Antibody Nonreactive (Nonreactive)
[2024-03-03 00:48] LABS: TS Negative Control Passed; TS Panel A 0; TS Panel B 1; TS Positive Control Passed; TSpotTB Negative (Negative)
== END 2024-02-29 14:58 | disposition home or self-care (01) ==
LOC: HO.LAB 14:57
PROVIDERS: Student in an Organized Health Care Education/Training Program; PCP Nurse Practitioner Family; Visit Provider Nurse Practitioner Family
DX: L40.50 Arthropathic psoriasis, unspecified (principal); Z11.59 Encounter for screening for other viral diseases; Z11.7 Encounter for testing for latent tuberculosis infection; E03.9 Hypothyroidism, unspecified; E55.9 Vitamin D deficiency, unspecified; F11.20 Opioid dependence, uncomplicated
CPT/HCPCS: 36415; 80053; 82306; 84443; 85025; 85652; 86140; 86481; 86704; 86706; 86709; 86803; 87340; 99212

== ENCOUNTER 2024-03-24 14:40 | Outpatient (AMB) | payer MEDICARE, MEDICAID, SELFPAY ==
--- NOTE | 2024-03-24 14:47 | MHC.OFFVIS ---
Vital Signs 03/24/24 14:49 Height 5 ft 5 in Weight 189 lb 13.088 oz BMI 31.6 BP 138/78 Blood Pressure Location Lt brachial Position Sitting Pulse Oximetry (%) 97 Oxygen Delivery Method Room Air Intake Visit Reasons: PSA/lm Intake Note: Patient last seen by Doctor Sunni Samuels on 12/23/23. Presents today for PsA follow up and test results. Allergies sulfa Allergy (Mild, Uncoded 03/24/24 14:50) Hives Medication List - Last Reconciled 03/24/24 by Sunni Samuels MD biotin 10 mg PO DAILY 30 days buprenorphine-naloxone 2-0.5 mg (Suboxone) 1 film sublingual TID cholecalciferol (vitamin D3) (Vitamin D3) 125 mcg PO DAILY 90 days cyanocobalamin (vitamin B-12) (Vitamin B-12) 2,500 mcg sublingual DAILY 30 days diclofenac epolamine 1.3% (Flector) 1 patch transdermal .qd 30 days duloxetine (Cymbalta) 60 mg PO DAILY 30 days ferrous sulfate 325 mg PO DAILY 30 days gabapentin 300 mg PO TID 30 days hydroxychloroquine 200 mg PO BID hydroxyzine HCl 25 mg PO BEDTIME PRN leflunomide 10 mg PO 2XW levothyroxine 137 mcg PO DAILY 30 days meloxicam 7.5 mg PO BID metoprolol succinate ER 25 mg PO BID 30 days omega 4-dnv-kpj-fish oil 200-300-1,000 mg 1 cap PO DAILY 30 days omeprazole 20 mg PO DAILY 90 days Taltz Autoinjector (ixekizumab) 80 mg subcut Q4W NS tizanidine 2 mg PO Q8H PRN 30 days trazodone 150 mg PO BEDTIME PRN 30 days HPI Comments Details: 58-year-old female with psoriatic arthritis, Sjogren's, discoid lupus presents for follow-up. She remains on hydroxychloroquine 200 mg Twice daily, Taltz 80 mg q.4 weeks and and Arava was increased from 10 mg twice a week to 10 mg daily last visit. She states that she feels about the same overall. Fatigue is unchanged. She continues to have pain swelling of her hands and wrists. Morning stiffness lasting 1-2 hours. She states that the Taltz works quite well for about 3 weeks. She states that she had an ablation procedure by Pain Management recently and it was helpful. Initial history: This is a 56-year-old female with a past medical history of psoriatic spondylitis, Sjogren's who presents as a new patient. She recently moved from [place]. 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 Afterwards patient had multiple symptoms including dry eyes and dry mouth, Raynaud's and low back pain as well as peripheral arthritis. She was on multiple DMARDs for her arthritis including methotrexate which she could not tolerate, she was on Arava but per patient it caused diarrhea so now she takes 10 mg twice a week. She has been on hydroxychloroquine all through. Follows up regularly with Ophthalmology. She was started on Remicade 3-4 years ago 5 mg/kg every 8 weeks with significant improvement in her overall symptoms especially her back pain. Patient's last dose of Remicade was in November of 2021. Patient states that feels significant worsening of her overall joint pain especially her back now that she has not received Remicade for 8 months. Continues to have dry eyes and dry mouth. Uses Restasis regularly. Uses Salagen twice daily for dry mouth without significant relief. Continues to use Biotene mouthwash and Biotene toothpaste. In 2018 patient fell down the stairs and broke both her ankles does fractures were thought to be osteoporotic in nature. She had ORIF, she then took alendronate for a few months but could not tolerated due to GI upset. She could not do Tymlos as patient was needle phobic. Patient received Evenity 02/03 doses. Last dose was November of 2021. Patient states that food gets stuck almost every meal and she has to drink some water to get food to pass. [facility] Medical History Chronic low back pain Discoid lupus Thyroid disease Raynaud disease Neuropathy Arthritis Anemia Philipp thyroiditis, fibrous variant Polyarticular arthritis Hypertension Osteopenia of both ankles Surgical History History of ankle surgery History of tonsillectomy History of knee replacement Family History Paternal Grandfather Rheumatoid arthritis Lupus Father ALS (amyotrophic lateral sclerosis) Mother Macular degeneration Social History Household Members: None Housing: Apartment Alcohol intake: never Patient Tobacco Use Status: Never used Tobacco e-Cigarette/Vaping Use: Never Used service: No Current occupational status: disabled Cognitive needs: No Hearing needs: No Vision needs: No Female Reproductive History Menstrual Total pregnancies: 0 Review of Systems Const Reports fatigue Musc Reports back pain, Reports arthralgias, Reports joint swelling and Reports stiffness Endo Reports fatigue Physical Exam Vital Signs: Last Vital Signs BP 138/78 03/24/24 14:49 Pulse Ox 97 03/24/24 14:49 Oxygen Delivery Method Room Air 03/24/24 14:49 BMI result Body Mass Index 31.6 Const General: cooperative Nutritional Appearance: obese Orientation/consciousness: patient oriented x3 Limitations: no limitations HEENT Head: Yes normocephalic and Yes atraumatic Mouth: moist mucous membranes Resp Effort & Inspection: normal respiratory effort and able to speak in complete sentences Neuro General: patient oriented x3 Extrem Other: Bilateral wrist tenderness and pain with flexion and extension Few tender MCPs bilaterally no significant swelling No ankle tenderness or swelling today Results Reviewed Results Reviewed: Labs 01/2022? Urinalysis With trace protein and trace bilirubin Protein/creatinine ratio normal SUAD 1-160 homogeneous CMP unremarkable SSA +++ DsDNA/Scl 70/Rangel/SOLAR DEVELOPMENT ENGINEER /RF/CCP all -ve C4/C3 normal Hep C antibody/HepB core antibody IgM/HbS Ag/negative QuantiFERON negative Free T4 normal? ?TSH 7.99 MRI L-spine 04/2021 Impression multilevel spondylitic changes and focal disc protrusion at L3-L4 contacts the trend sending right L4 nerve root in the lateral recess without definite displacement DEXA 12/2018? L-spine T-score -1.2? Mean proximal fever -0.5? Mean femur neck -0.9 SI joint x-rays 10/2016? Findings the SI joints are intact with mild degenerative changes bilaterally.? Upper sacrum arcuate line are preserved.? Lower sacrum is obscured.? On the lateral view of the sacral coccyx no fracture or malalignment is seen.? Soft tissues unremarkable.? No radiopaque foreign bodies or soft tissue gas Assessment & Plan Assessment & Plan (1) Psoriatic arthritis: Comment: Per patient onset around 2003 Prednisone for about 10 years Could not tolerate methotrexate Humira was not effective Hydroxychloroquine throughout Remicade at 5 mgs/kg every 8 weeks started around 2015. DC 12/14 ineffective. +ve infliximab antibody Enbrel 01/14 DC 02/14 due to rash Taltz 08/2023 Unclear when Arava was started. But she only takes 10 mg twice a week, higher doses cause diarrhea Code(s): L40.50 - Arthropathic psoriasis, unspecified Category: Medical Plan: 58-year-old female with a past medical history of Sjogren's, discoid lupus & psoriatic spondylitis returns for follow-up. She is on hydroxychloroquine 200 mg Twice daily, Taltz 80 mg q.4 weeks and leflunomide 10 mg daily. Last visit leflunomide was increased from 10 mg twice weekly to 10 mg daily. Did not make much of a difference. Patient continues to be symptomatic at her hands and wrists with joint pain, swelling and morning stiffness lasting 1-2 hours. Inflammatory markers mildly elevated NILA Cornejo. Discussed switching to IV Cosentyx infusions. Patient agreed to proceed. Will start prior authorization for Cosentyx infusions. Reduce Arava to 10 mg twice a week Continue other meds as prescribed Labs before next visit in in 3 months (2) Sjogren syndrome with keratoconjunctivitis: Code(s): M35.01 - Sjogren syndrome with keratoconjunctivitis Category: Medical Plan: SUAD 1-160 homogeneous. +++SSa. Dry eyes and dry mouth. Continue Restasis Continue Biotene mouthwash and Biotene toothpaste. (3) Chronic low back pain: Code(s): M54.50 - Low back pain, unspecified; G89.29 - Other chronic pain Category: Medical Qualifiers: Back pain laterality: midline Sciatica presence: unspecified whether sciatica present Qualified Code(s): M54.50 - Low back pain, unspecified; G89.29 - Other chronic pain Plan: Follows up regularly with pain management. Recently had a nerve ablation procedure she states that it was helpful. (4) Osteoporosis with fracture: Comment: Bilateral ankle fracture while walking down the stairs. Around 10 years of chronic corticosteroid exposure DEXA 12/2018? L-spine T-score -1.2? Mean proximal fever -0.5? Mean femur neck -0.9 DEXA 06/2022 L-spine T-score -0.4 Left femur neck-0.5 Left femur total -0.5 Took alendronate for about 6 months stopped due to GI intolerance Needle phobic could not use Tymlos Took 9 out of 12 doses of Evenity, last dose 11/2021 Code(s): M80.80XA - Other osteoporosis with current pathological fracture, unspecified site, initial encounter for fracture Category: Medical Qualifiers: Osteoporosis type: age-related Site of pathological fracture: tibia and fibula Encounter type: initial encounter Laterality: unspecified laterality Qualified Code(s): M80.069A - Age-related osteoporosis with current pathological fracture, unspecified lower leg, initial encounter for fracture Plan: Patient broke both her ankles were walking down the stairs in November of 2018 s/p ORIF. DEXA scan showed osteopenia -1.2 but due to long history of corticosteroid exposure she was deemed to have osteoporosis. Patient received Evenity for 9 doses with some improvement of her T-score. Patient agreed to start Reclast. It was approved. Patient has not been able to schedule it. Due to complex with other appointments. We will arrange for Reclast infusion Vitamin-D level at goal Continue vitamin-D supplementation (5) Long-term use of hydroxychloroquine: Comment: Eye exam 11/2023 [place] Code(s): Z79.899 - Other medical terminologist (current) drug therapy Category: Medical Plan: Continue to follow-up regularly with associate java developer Plan I spent 40 minutes reviewing patient's chart, evaluating patient, ordering diagnostic workup, counseling patient and documenting in the chart Orders: Orders C Reactive Protein 3 Months L40.50 - Arthropathic psoriasis, unspecified, Z79.899 - Other medical terminologist (current) drug therapy Complete Blood Count Auto Diff 3 Months L40.50 - Arthropathic psoriasis, unspecified, Z79.899 - Other prison (current) drug therapy Comprehensive Met. Panel 3 Months L40.50 - Arthropathic psoriasis, unspecified, Z79.899 - Other medical terminologist (current) drug therapy Erythrocyte Sedimentation Rate 3 Months L40.50 - Arthropathic psoriasis, unspecified, Z79.899 - Other prison (current) drug therapy Referrals Infusion Center Notification L40.50 - Arthropathic psoriasis, unspecified Medications: Changed From leflunomide TAKE 1 TABLET BY MOUTH DAILY 90 tabs 0RF To leflunomide 10 mg PO 2XW 24 tabs 0RF Coding Level of Care Code Est Pt Level 4 (55912) Complex EM visit Add On G2211 Diagnoses Psoriatic arthritis L40.50 Sjogren syndrome with keratoconjunctivitis M35.01 Chronic midline low back pain, unspecified whether sciatica present M54.50; G89.29 Back pain laterality: midline Sciatica presence: unspecified whether sciatica present Pathological fracture of both tibia and fibula due to age-related osteoporosis, unspecified laterality, initial encounter M80.069A Osteoporosis type: age-related Site of pathological fracture: tibia and fibula Encounter type: initial encounter Laterality: unspecified laterality Long-term use of hydroxychloroquine Z79.899
[2024-03-24 14:49] VITALS: BP 138/78; O2SAT 97; BMI 31.6
== END 2024-03-24 15:26 | disposition home or self-care (01) ==
LOC: HO.RHE 14:40
PROVIDERS: PCP Nurse Practitioner Family; Visit Provider Student in an Organized Health Care Education/Training Program
DX: L40.50 Arthropathic psoriasis, unspecified (principal); M35.01 Sjogren syndrome with keratoconjunctivitis; M54.50 Low back pain, unspecified; G89.29 Other chronic pain; M80.0 Age-related osteoporosis with current pathological fracture; Z79.899 Other long term (current) drug therapy
CPT/HCPCS: 99214; G2211

== ENCOUNTER → 2024-03-24 14:40 | Outpatient (BNVA) | payer MEDICARE, MEDICAID, SELFPAY | PROVIDERS: PCP Nurse Practitioner Family; Visit Provider Student in an Organized Health Care Education/Training Program | DX: L40.50 Arthropathic psoriasis, unspecified (principal); M35.01 Sjogren syndrome with keratoconjunctivitis; L93.0 Discoid lupus erythematosus; M54.50 Low back pain, unspecified; G89.29 Other chronic pain; M80.062A Age-related osteoporosis with current pathological fracture, left lower leg, initial encounter for fracture; M80.061A Age-related osteoporosis with current pathological fracture, right lower leg, initial encounter for fracture; Z71.89 Other specified counseling; Z79.899 Other long term (current) drug therapy | CPT/HCPCS: 99212 ==

== ENCOUNTER 2024-04-08 15:53 | Outpatient (AMB) | payer MEDICARE, MEDICAID, SELFPAY ==
--- NOTE | 2024-04-08 15:55 | MHC.PC.OV ---
Vital Signs 04/08/24 16:01 Height 5 ft 5 in Weight 190 lb BMI 31.6 BP 120/62 Blood Pressure Location Lt brachial Position Sitting Respiration 18 Pulse 67 Pulse Source Pulse Oximeter Pulse Oximetry (%) 97 Oxygen Delivery Method Room Air Intake Visit Reasons: 3 mos HTN, anxiety, depression Intake Note: Patient is here to follow up on HTN, Depression, Anxiety. Application Security Architect Required: No Splicing Machine Operator Automatic: Not Required per policy Accompanied by: Self / Same As Patient Allergies sulfa Allergy (Mild, Uncoded 04/08/24 16:15) Hives Medication List - Last Reconciled 04/08/24 by Sunni Browne CNP biotin 10 mg PO DAILY 30 days buprenorphine-naloxone 2-0.5 mg (Suboxone) 1 film sublingual TID cholecalciferol (vitamin D3) (Vitamin D3) 125 mcg PO DAILY 90 days cyanocobalamin (vitamin B-12) (Vitamin B-12) 2,500 mcg sublingual DAILY 30 days diclofenac epolamine 1.3% (Flector) 1 patch transdermal .qd 30 days duloxetine (Cymbalta) 60 mg PO DAILY 30 days ferrous sulfate 325 mg PO DAILY 30 days gabapentin 300 mg PO TID 30 days hydroxychloroquine 200 mg PO BID hydroxyzine HCl 25 mg PO BEDTIME PRN leflunomide 10 mg PO 2XW levothyroxine 137 mcg PO DAILY 30 days meloxicam 7.5 mg PO BID metoprolol succinate ER 25 mg PO BID 30 days omega 3-mjo-grx-fish oil 200-300-1,000 mg 1 cap PO DAILY 30 days omeprazole 20 mg PO DAILY 90 days Taltz Autoinjector (ixekizumab) 80 mg subcut Q4W NS tizanidine 2 mg PO Q8H PRN 30 days trazodone 150 mg PO BEDTIME PRN 30 days Tobacco use date assessed: 04/08/24 Dental Screening Dental Screen Date: 12/29/23 HPI HPI Comments History of Present Illness Details 58-year-old female presents for hypertension, anxiety, and depression follow-up She admits to taking her medications as prescribed without adverse reactions She reports controlled anxiety and depressive symptoms She notes itchy skin underneath her breasts for the past 1 month [facility] Medical History Chronic low back pain Discoid lupus Thyroid disease Raynaud disease Neuropathy Arthritis Anemia Philipp thyroiditis, fibrous variant Polyarticular arthritis Hypertension Osteopenia of both ankles Surgical History History of ankle surgery History of tonsillectomy History of knee replacement Family History Paternal Grandfather Rheumatoid arthritis Lupus Father ALS (amyotrophic lateral sclerosis) Mother Macular degeneration Social History Household Members: None Housing: Apartment Alcohol intake: never Patient Tobacco Use Status: Never used Tobacco e-Cigarette/Vaping Use: Never Used Second Hand Smoke Exposure: No service: No Current occupational status: disabled Cognitive needs: No Hearing needs: No Vision needs: No Questionnaire PHQ-9 Over the last 2 weeks, how often have you been bothered by any of the following problems? 1. Little interest or pleasure in doing things: not at all 2. Feeling down, depressed, or hopeless: not at all 3. Trouble falling or staying asleep, or sleeping too much: not at all 4. Feeling tired or having little energy: not at all 5. Poor appetite or overeating: not at all 6. Feeling bad about yourself - or that you are a failure or have let yourself or your family down: not at all 7. Trouble concentrating on things, such as reading the newspaper or watching television: not at all 8. Moving or speaking so slowly that other people could have noticed. Or the opposite - being so fidgety or restless that you have been moving around a lot more than usual: not at all 9. Thoughts that you would be better off or of hurting yourself in some way: not at all Total score: 0 Depression Screening Interpretation: Negative Depression Screening Done: Yes Source: Developed by Drs. Corby Peter, Porsha Mata, Jose Harrell and colleagues, with an educational fausto from [employer]. Thrive Questionnaire Date Thrive assessed: 04/08/24 I am a: Patient What is your living situation today?: I choose not to answer this question Within the past 12 months, did the food you bought not last and you didn't have the money to get more?: I choose not to answer this question Within the past 12 months, did you worry whether your food would run out before you got money to buy more?: I choose not to answer this question Do you have trouble paying for medicines?: I choose not to answer this question Do you have trouble getting transportation to medical appointments?: No Do you have trouble paying your heating and electricity bill?: No Do you have trouble taking care of your child, family member or friend?: I choose not to answer this question Do you have trouble with day-to-day activities such as bathing, preparing meals, shopping, managing finances, etc.?: I choose not to answer this question Are you currently unemployed and looking for a job?: I choose not to answer this question Are you interested in more education?: I choose not to answer this question Please select the resources that you would like help with: None Currently or been in a relationship where the following occur: I choose not to answer THRIVE Score: 0 AUDIT C Alcohol Use Questionnaire (AUDIT-C) 1. How often do you have a drink containing alcohol?: Never Total Score: 0 LATRICIA-7 AMB Questionnaire LATRICIA-7 Date LATRICIA - 7 assessed: 04/08/24 Feeling nervous, anxious, or on edge: 0 = Not at all Not being able to stop or control worryin = Not at all Worrying too much about different things: 0 = Not at all Trouble relaxin = Not at all Being so restless that it is hard to sit still: 0 = Not at all Becoming easily annoyed or irritable: 0 = Not at all Feeling afraid as if something awful might happen: 0 = Not at all Total LATRICIA-7 score (0-4 normal; 5-9 mild; 10-14 moderate; 15-21 severe): 0 Source: Developed by Drs. Corby Peter, Porsha Maat, Jose Harrell and colleagues, with an educational fausto from [employer]. Review of Systems Const Details: Const Denies chills, Denies fatigue, Denies fever(s), Denies headache(s) and Denies weakness ENT Denies dizziness and Denies headache(s) Card Denies chest pain, Denies lightheadedness, Denies dyspnea and Denies other (Palpitations) Resp Denies cough, Denies dyspnea, Denies wheezing and Denies other ( shortness of breath) GI Denies abdominal pain, Denies melena, Denies hematochezia, Denies change in bowel habits, Denies dyspepsia and Denies nausea Denies hematuria and Denies dysuria Musc Denies abnormal gait, Denies myalgias, Denies arthralgias, Denies numbness and Denies tingling Skin/Breast Reports as per HPI Neuro Denies abnormal gait, Denies dizziness, Denies headache(s), Denies memory loss, Denies numbness, Denies Sensory deficit (Neuro), Denies tingling and Denies weakness Psych Denies anxiety, Denies depression, Denies memory loss Endo Denies cold intolerance, Denies fatigue, Denies heat intolerance, Denies polydipsia and Denies polyuria Aller/Immun Denies wheezing Physical exam (Primary Care) Tobacco/Smoking Status: Tobacco use Status Tobacco use date assessed 12/29/23 04/08/24 15:57 Patient Tobacco Use Status Never used Tobacco 04/08/24 15:57 e-Cigarette/Vaping Use Never Used 04/08/24 15:57 Depression Screening Interpretation: Negative Thrive Assessment: Date of Thrive Assessment Date Thrive assessed 07/15/22 04/08/24 15:57 Currently or been in a relationship where the following occur: I choose not to answer Const Other: General: no acute distress and well developed Nutritional Appearance: well nourished Orientation/consciousness: patient oriented x3 [facility] Head: Yes normocephalic and Yes atraumatic Eyes General: appearance normal, both eyes and all related structures Pupils: Equal, round and reactive pupils present EOM: EOMs intact bilaterally Resp Effort & Inspection: normal respiratory effort Auscultation: clear to auscultation bilaterally Cardio Rate: regular rate Rhythm: regular rhythm Heart sounds: S1 normal heart sound present, S2 normal heart sound present, no gallops, no murmurs and no rubs GI Palpation (GI): No Abdominal aortic bruit present, Soft to palpation, nontender, No hepatosplenomegaly present and No Rebound tenderness present Auscultation: normal bowel sounds General: Yes no CVA tenderness Back/Spine/Pelvis Back: no CVA tenderness Extrem General: Yes normal to inspection, No edema and No calf tenderness Skin General: warm and dry. Normal skin color. Normal skin turgor Lesions: no lesions Rashes: Slightly red widespread patch underneath both breasts, consistent with candidiasis Trauma: no lacerations or abrasions Wounds: no wounds Nails: normal Neuro General: patient oriented x3, gait normal and no focal neuro deficit Cranial nerves: Yes Equal, round and reactive pupils present Cognition (Neuro): normal cognition Gait exam (Neuro): Normal gait present Sensory Exam: No Sensory deficit (Neuro) Psych Appearance: grossly normal Affect: normal affect Attitude: cooperative Thought process: Normal thought process present Coding Level of Care Code Est Pt Level 4 (86503) Diagnoses Primary hypertension I10 Hypertension type: primary hypertension Anxiety F41.9 Depression F32.A Vitamin D deficiency E55.9 Hypothyroidism E03.9 Candidiasis of breast B37.89 Laboratory tests ordered as part of a complete physical exam (CPE) Z00.00 Assessment & Plan Assessment & Plan (1) Hypertension: Code(s): I10 - Essential (primary) hypertension Category: Medical Qualifiers: Hypertension type: primary hypertension Qualified Code(s): I10 - Essential (primary) hypertension Plan: Blood pressure is 120/62, within goal of less than 140/90 Continue current treatment regimen Low-sodium diet encouraged Follow-up in 1-2 an extended physical exam or sooner with symptoms or concerns Verbalized understanding and agreed with the treatment plan (2) Anxiety: Code(s): F41.9 - Anxiety disorder, unspecified Category: Medical Plan: Her anxiety and depressive symptoms have been controlled PHQ-9 and LATRICIA-7 scores are normal Continue current treatment regimen Routine exercise encouraged Follow-up with symptoms or concerns Verbalized understanding and agreed with the treatment plan (3) Depression: Code(s): F32.A - Depression, unspecified Category: Medical Plan: Plan as above (4) Vitamin D deficiency: Code(s): E55.9 - Vitamin D deficiency, unspecified Category: Medical Plan: Recent vitamin D level about 6 weeks ago is normal, 49.9 Continue current treatment regimen Will recheck vitamin D3 level. Advised to get blood work done before her next visit Verbalized understanding and agreed with the plan (5) Hypothyroidism: Code(s): E03.9 - Hypothyroidism, unspecified Category: Medical Plan: Recent TSH level about 6 weeks ago is normal, 3.27 Continue current treatment regimen Will recheck TSH level and make changes as needed Verbalized understanding and agreed with the treatment plan (6) Candidiasis of breast: Code(s): B37.89 - Other sites of candidiasis Category: Medical Plan: She has had itchy skin underneath her breasts for the past 1 month Slightly red widespread patch underneath both breasts, consistent with candidiasis Advised to apply clotrimazole cream twice daily to affected areas Follow-up with worsening or new signs and symptoms Verbalized understanding and agreed with the treatment plan (7) Laboratory tests ordered as part of a complete physical exam (CPE): Code(s): Z00.00 - Encounter for general adult medical examination without abnormal findings Category: Medical Plan: Fasting labs ordered as part of a complete physical exam. Advised to fast for at least 10 hours before getting labs drawn. May drink water Verbalized understanding and agreed with treatment plan. Orders: Orders TSH reflex Free T4 Today E03.9 - Hypothyroidism, unspecified UA CC w/rflx Micro + Cult Today Z00.00 - Encounter for general adult medical examination without abnormal findings Microalbumin, Random (w Creat) Today Z00.00 - Encounter for general adult medical examination without abnormal findings Vitamin D 25-OH Total Today E55.9 - Vitamin D deficiency, unspecified Lipid Panel Today Z00.00 - Encounter for general adult medical examination without abnormal findings
[2024-04-08 16:01] VITALS: BP 120/62; PULSE 67; RESP 18; O2SAT 97; BMI 31.6
== END 2024-04-08 16:31 | disposition home or self-care (01) ==
PROVIDERS: PCP Nurse Practitioner Family; Visit Provider Nurse Practitioner Family
DX: I10 Essential (primary) hypertension (principal); F41.9 Anxiety disorder, unspecified; F32.A Depression, unspecified; E55.9 Vitamin D deficiency, unspecified; E03.9 Hypothyroidism, unspecified; B37.89 Other sites of candidiasis; Z00.00 Encounter for general adult medical examination without abnormal findings

== ENCOUNTER → 2024-04-08 15:53 | Outpatient (BNVA) | payer MEDICARE, MEDICAID, SELFPAY | PROVIDERS: PCP Nurse Practitioner Family; Visit Provider Nurse Practitioner Family | DX: I10 Essential (primary) hypertension (principal); F41.9 Anxiety disorder, unspecified; F32.A Depression, unspecified; E55.9 Vitamin D deficiency, unspecified; E03.9 Hypothyroidism, unspecified; B37.89 Other sites of candidiasis | CPT/HCPCS: 99212 ==

== ENCOUNTER 2024-04-27 11:19 | Outpatient (AMB) | payer MEDICARE, MEDICAID, SELFPAY ==
--- NOTE | 2024-04-27 11:20 | A.OFFVISCC_ITS ---
Intake Visit Reasons: MAT tele Allergies sulfa Allergy (Mild, Uncoded 04/08/24 16:15) Hives HPI HPI MAT tele: Details: Patient presents for follow up via telehealth Currently prescribed Suboxone 2mg TID Denies any issues related to medication Reports that she had ablation done mid-March Does not know if it was helpful or not Starts infusions today via rheumatology Review of Systems Const Reports as per HPI and Reports no additional complaints Telehealth Telehealth Telehealth Platform: Telephone Location of provider rendering services: practice address Location of patient: address on file Patient Identification confirmed using: Name, : Yes Telehealth method: voice only Patient verbally consented to treatment: Yes Patient verbally consented to billing insurance company: Yes Minutes spent on Phone/Video with Pt.: 15 Assessment & Plan Assessment & Plan (1) Opioid dependence: Code(s): F11.20 - Opioid dependence, uncomplicated Category: Medical Qualifiers: Substance use status: uncomplicated Qualified Code(s): F11.20 - Opioid dependence, uncomplicated Plan: * continue suboxone at current dose * follow up 2 months * refill not yet due, reminder sent to t/w to send when due [facility] Medical History Chronic low back pain Discoid lupus Thyroid disease Raynaud disease Neuropathy Arthritis Anemia Philipp thyroiditis, fibrous variant Polyarticular arthritis Hypertension Osteopenia of both ankles Surgical History History of ankle surgery History of tonsillectomy History of knee replacement Family History Paternal Grandfather Rheumatoid arthritis Lupus Father ALS (amyotrophic lateral sclerosis) Mother Macular degeneration Social History Household Members: None Housing: Apartment Alcohol intake: never Patient Tobacco Use Status: Never used Tobacco e-Cigarette/Vaping Use: Never Used Second Hand Smoke Exposure: No service: No Current occupational status: disabled Cognitive needs: No Hearing needs: No Vision needs: No
== END 2024-04-27 11:28 | disposition home or self-care (01) ==
PROVIDERS: PCP Nurse Practitioner Family; Visit Provider Nurse Practitioner Psychiatric/Mental Health
DX: F11.20 Opioid dependence, uncomplicated (principal)
CPT/HCPCS: 98967

== ENCOUNTER → 2024-04-27 11:19 | Outpatient (BNVA) | payer MEDICARE, MEDICAID, SELFPAY | PROVIDERS: PCP Nurse Practitioner Family; Visit Provider Nurse Practitioner Psychiatric/Mental Health ==

== ENCOUNTER 2024-06-08 13:00 | Outpatient (AMB) | payer MEDICARE, MEDICAID, SELFPAY ==
--- NOTE | 2024-06-08 13:01 | A.OFFVISCC_ITS ---
Intake Visit Reasons: MAT tele Allergies sulfa Allergy (Mild, Uncoded 04/08/24 16:15) Hives HPI HPI MAT tele: Details: Patient presents for follow up via telehealth Currently prescribed Suboxone 2mg TID Denies any issues related to medication No new medications Denies or any questions or concerns Review of Systems Const Reports as per HPI and Reports no additional complaints Telehealth Telehealth Telehealth Platform: Telephone Location of provider rendering services: practice address Location of patient: address on file Patient Identification confirmed using: Name, : Yes Telehealth method: voice only Patient verbally consented to treatment: Yes Patient verbally consented to billing insurance company: Yes Minutes spent on Phone/Video with Pt.: 15 PFS Medical History Chronic low back pain Discoid lupus Thyroid disease Raynaud disease Neuropathy Arthritis Anemia Philipp thyroiditis, fibrous variant Polyarticular arthritis Hypertension Osteopenia of both ankles Surgical History History of ankle surgery History of tonsillectomy History of knee replacement Family History Paternal Grandfather Rheumatoid arthritis Lupus Father ALS (amyotrophic lateral sclerosis) Mother Macular degeneration Social History Household Members: None Housing: Apartment Alcohol intake: never Patient Tobacco Use Status: Never used Tobacco e-Cigarette/Vaping Use: Never Used Second Hand Smoke Exposure: No service: No Current occupational status: disabled Cognitive needs: No Hearing needs: No Vision needs: No Assessment & Plan Assessment & Plan (1) Opioid dependence: Code(s): F11.20 - Opioid dependence, uncomplicated Category: Medical Qualifiers: Substance use status: uncomplicated Qualified Code(s): F11.20 - Opioid dependence, uncomplicated Plan: * continue suboxone at current dose * follow up 2 months (July) * has a refill on her current script
--- OUTSIDE RECORDS SUMMARY | 2024-06-08 15:36 | XMS_ITS ---
Author Name [facility] Organization Unknown Results Test Name/Text Value Interpretation Date Range Source ICD-10 CODES Normal [id number] [facility] UCONNP[facility] LAB AP GROSS DESCRIPTION Received in formalin. Dimensions 4 x 3 x 3 mm, and submitted in 1 cassette. Also received is a vial of tissue transport medium (Krystian) containing a biopsy specimen measuring 3 x 3 x 4 mm. Tissue was washed in phosphate buffered saline and then embedded in OCT for immunofluorescent studies. Tissue was frozen, cut at 5 microns, and stained with fluorescein-labeled antibody to human IgG, IgM, IgA, C3 and fibrinogen. Normal [facility] LAB AP CLINICAL INFORMATION Healing scars with scattered erosions, blisters per history but no evidence of blisters on exam; dermatitis unsp vs hypersensitivity reaction vs contact dermatitis vs psoriasis vs prurigo vs other Normal [facility] History of Medication Use Medication Directions Dispensed Refills Start Date End Date Stat us hydroxychloroquine (PLAQUENIL) 200 MG tablet Take 200 mg by mouth. 05/29/2024 9 active metoPROLOL TARTRATE (LOPRESSOR) 25 MG tablet 05/29/2024 9 active nitrofurantoin monohydrate (MACROBID) 100 MG capsule Take 1 capsule (100 mg total) by mouth 2 (two) times a day. 05/29/2024 9 active DULoxetine (CYMBALTA) 60 MG capsule 05/29/2024 9 active tiZANidine (ZANAFLEX) 2 MG tablet Take 2 mg by mouth. 05/29/2024 9 active levothyroxine (SYNTHROID) 100 MCG Recon Soln 05/29/2024 9 active traZODone (DESYREL) 50 MG tablet Take 50 mg by mouth nightly. 05/29/2024 9 active Problems Problem Status Onset Date Problem Type Date of Resoluti on Source Acute cystitis with hematuria active [facility]
== END 2024-06-08 13:43 | disposition home or self-care (01) ==
PROVIDERS: PCP Nurse Practitioner Family; Visit Provider Nurse Practitioner Psychiatric/Mental Health
DX: F11.20 Opioid dependence, uncomplicated (principal)
CPT/HCPCS: 98016

== ENCOUNTER 2024-06-21 14:56 | Outpatient (REF) | payer MEDICARE, MEDICAID, SELFPAY ==
[2024-06-21 15:10] LABS: MANUAL DIFF FLAG NO
[2024-06-21 15:17] LABS: Basophils Absolute Auto 0.1 X10*3/uL (0.0-0.2); Eosinophils Absolute Auto 0.3 X10*3/uL (0.0-0.4); Eosinophils Percent Auto 5.6 % (0-4); Hematocrit 36.2 % (37.0-47.0); Hemoglobin 11.3 g/dl (12.0-16.0); Imm Gran Abs Auto 0.01 X10*3/uL (0.00-0.03); Imm Gran Pct Auto 0.2 % (0.0-0.4); Lymphocytes Absolute Auto 2.4 X10*3/uL (1.2-4.9); Mean Corpuscular HGB Conc 31.2 g/dl (31.0-35.0); Mean Corpuscular Hemoglobin 27.2 pg (27.0-33.0); Mean Platelet Volume 9.8 fL (9.4-12.3); Monocytes Absolute Auto 0.4 X10*3/uL (0.1-1.2); Monocytes Percent Auto 7.4 % (2-11); Neutrophils Absolute Auto 1.7 x10*3/uL (2.0-8.3); Neutrophils Percent Auto 35.8 % (45-73); Platelet Count 237 X10*3/uL (160-400); Red Blood Count 4.16 X10*6/uL (4.20-5.50); Red Cell Distribution Width 14.5 % (11.0-16.0); White Blood Count 4.9 X10*3/uL (4.8-10.8)
--- OUTSIDE RECORDS SUMMARY | 2024-06-21 15:57 | XMS_ITS | Encounter Summary ---
Author Organization [facility] Address [address] [place] [phone] Phone Care Team Providers Care Pattern Generator Operator Name Role Phone Unavailable Primary Care Provider Unavailabl e Encounter Details Date Type Department Care Team (Late st Contact Info) Description 01/20/2013 Legacy Encounter - Labs HISTORICAL CONVERSION [address] [id number], [place] [address] ProviderYoav [place] [facility] [place] [address] Social History Tobacco Use Types Packs/Day Years Used Date Smoking Tobacco: Never Assessed Sex and Gender Information Value Date Recorded Sex Assigned at Not on file Gender Identity Not on file Sexual Orientation Not on file documented as of this encounter Plan of Treatment Not on file documented as of this encounter Procedures Procedure Name Priority Date/Time Associated Diagnosis Comments DPS CONVERSION - LAB RESULT SCAN PROCEDURE 01/20/2013 12:00 AM CDT documented in this encounter Results * DPS CONVERSION - LAB RESULT SCAN PROCEDURE (01/20/2013 12:00 AM CDT) Narrative 01/20/2013 12:00 AM CDT Ordered by an unspecified provider. Historical Provider LAB BLOOD ORDERAB LES documented in this encounter Visit Diagnoses Not on filedocumented in this encounter
--- OUTSIDE RECORDS SUMMARY | 2024-06-21 15:57 | XMS_ITS | Encounter Summary ---
Author Organization [facility] Address [address] [place] [phone] Phone Care Team Providers Care Wallet Assembler Name Role Phone Unavailable Primary Care Provider Unavailabl e Encounter Details Date Type Department Care Team (Late st Contact Info) Description 12/24/2012 Legacy Encounter - Labs HISTORICAL CONVERSION [address] [phone], [place] [address] ProviderYoav MD [facility] [place] [address] Social History Tobacco Use Types Packs/Day Years [...] DPS CONVERSION - LAB RESULT SCAN PROCEDURE 12/24/2012 12:00 AM CDT documented in this encounter Results * DPS CONVERSION - LAB RESULT SCAN PROCEDURE (12/24/2012 12:00 AM CDT) Narrative 12/24/2012 12:00 AM CDT Ordered by an unspecified provider. Historical Provider LAB BLOOD ORDERAB LES documented in this encounter Visit Diagnoses Not on filedocumented in this encounter
--- OUTSIDE RECORDS SUMMARY | 2024-06-21 15:57 | XMS_ITS | Encounter Summary ---
Author Organization [facility] Address [address] [place] [phone] Phone Care Team Providers Care Continuous Mining Operator Name Role Phone Unavailable Primary Care Provider Unavailabl e Encounter Details Date Type Department Care Team (Late st Contact Info) Description 06/11/2011 Legacy Encounter - Labs HISTORICAL CONVERSION [address] [phone], [place] [address] ProviderYoav MD [facility] [place] [phone] Social History Tobacco Use Types Packs/Day Years [...] DPS CONVERSION - LAB RESULT SCAN PROCEDURE 06/11/2011 12:00 AM FORECLOSURE HOME INSPECTOR documented in this encounter Results * DPS CONVERSION - LAB RESULT SCAN PROCEDURE (06/11/2011 12:00 AM FORECLOSURE HOME INSPECTOR) Narrative 06/11/2011 12:00 AM FORECLOSURE HOME INSPECTOR Ordered by an unspecified provider. Historical Provider LAB BLOOD ORDERAB LES documented in this encounter Visit Diagnoses Not on filedocumented in this encounter
--- OUTSIDE RECORDS SUMMARY | 2024-06-21 15:57 | XMS_ITS | Encounter Summary ---
Author Organization [facility] Address [address] [place] [phone] Phone Care Team Providers Care Toll Repairer Central Office Name Role Phone Unavailable Primary Care Provider Unavailabl e Encounter Details Date Type Department Care Team (Late st Contact Info) Description 06/18/2009 Legacy Encounter - Labs HISTORICAL CONVERSION [address] [id number], [place] [address] ProviderYoav MD [facility] [place] [phone] Social History Tobacco Use Types Packs/Day Years [...] DPS CONVERSION - LAB RESULT SCAN PROCEDURE 06/18/2009 12:00 AM DRUM REEL CUTTER documented in this encounter Results * DPS CONVERSION - LAB RESULT SCAN PROCEDURE (06/18/2009 12:00 AM DRUM REEL CUTTER) Narrative 06/18/2009 12:00 AM DRUM REEL CUTTER Ordered by an unspecified provider. Historical Provider LAB BLOOD ORDERAB LES documented in this encounter Visit Diagnoses Not on filedocumented in this encounter
--- OUTSIDE RECORDS SUMMARY | 2024-06-21 15:57 | XMS_ITS | Encounter Summary ---
Author Organization [facility] Address [address] [place] [phone] Phone Care Team Providers Care Unix Architect Name Role Phone Unavailable Primary Care Provider Unavailabl e Encounter Details Date Type Department Care Team (Late st Contact Info) Description 06/06/2013 Abstract HISTORICAL CONVERSION [place] [phone] ProviderYoav MD [facility] [place] [phone] Social History Tobacco Use Types Packs/Day Years Used Date Smoking Tobacco: Never Assessed Sex and Gender Information Value Date Recorded Sex Assigned at Not on file Gender Identity Not on file Sexual Orientation Not on file documented as of this encounter Plan of Treatment Not on file documented as of this encounter Visit Diagnoses Not on filedocumented in this encounter
--- OUTSIDE RECORDS SUMMARY | 2024-06-21 15:57 | XMS_ITS | Encounter Summary ---
Author Organization [facility] Address [address] [place] [address] Phone Care Team Providers Care Underground Mining Section Foreman Name Role Phone Unavailable Primary Care Provider Unavailabl e Encounter Details Date Type Department Care Team (Late st Contact Info) Description 06/14/2012 Legacy Encounter - Labs HISTORICAL CONVERSION [place] [phone], [place] [address] ProviderYoav MD [facility] [place] [phone] Social History Tobacco Use Types Packs/Day Years [...] DPS CONVERSION - LAB RESULT SCAN PROCEDURE 06/14/2012 12:00 AM RETAIL COVERAGE MERCHANDISER documented in this encounter Results * DPS CONVERSION - LAB RESULT SCAN PROCEDURE (06/14/2012 12:00 AM RETAIL COVERAGE MERCHANDISER) Narrative 06/14/2012 12:00 AM RETAIL COVERAGE MERCHANDISER Ordered by an unspecified provider. Historical Provider LAB BLOOD ORDERAB LES documented in this encounter Visit Diagnoses Not on filedocumented in this encounter
--- OUTSIDE RECORDS SUMMARY | 2024-06-21 15:57 | XMS_ITS | Encounter Summary ---
Author Organization [facility] Address [address] [place] [address] Phone Care Team Providers Care Brick Maker Name Role Phone Unavailable Primary Care Provider Unavailabl e Encounter Details Date Type Department Care Team (Late st Contact Info) Description 10/22/2012 Legacy Encounter - Labs HISTORICAL CONVERSION [place] [address], [place] [address] ProviderYoav MD [facility] [place] [address] Social History Tobacco Use Types Packs/Day Years [...] DPS CONVERSION - LAB RESULT SCAN PROCEDURE 10/22/2012 12:00 AM CDT documented in this encounter Results * DPS CONVERSION - LAB RESULT SCAN PROCEDURE (10/22/2012 12:00 AM CDT) Narrative 10/22/2012 12:00 AM CDT Ordered by an unspecified provider. Historical Provider LAB BLOOD ORDERAB LES documented in this encounter Visit Diagnoses Not on filedocumented in this encounter
--- OUTSIDE RECORDS SUMMARY | 2024-06-21 15:57 | XMS_ITS | Encounter Summary ---
Author Organization [facility] Address [address] [place] [address] Phone Care Team Providers Care Management Psychologist Name Role Phone Unavailable Primary Care Provider Unavailabl e Encounter Details Date Type Department Care Team (Late st Contact Info) Description 11/19/2009 Legacy Encounter - Labs HISTORICAL CONVERSION [place] [phone], [place] [address] ProviderYoav MD [facility] [place] [address] Social History Tobacco Use Types Packs/Day Years [...] DPS CONVERSION - LAB RESULT SCAN PROCEDURE 11/19/2009 12:00 AM CDT documented in this encounter Results * DPS CONVERSION - LAB RESULT SCAN PROCEDURE (11/19/2009 12:00 AM CDT) Narrative 11/19/2009 12:00 AM CDT Ordered by an unspecified provider. Historical Provider LAB BLOOD ORDERAB LES documented in this encounter Visit Diagnoses Not on filedocumented in this encounter
--- OUTSIDE RECORDS SUMMARY | 2024-06-21 15:57 | XMS_ITS | Encounter Summary ---
Author Organization [facility] Address [address] [place] [address] Phone Care Team Providers Care Assembler Utility Buildings Name Role Phone Unavailable Primary Care Provider Unavailabl e Encounter Details Date Type Department Care Team (Late st Contact Info) Description 03/01/2012 Legacy Encounter - Labs HISTORICAL CONVERSION [place] [phone], [place] [address] ProviderYoav MD [facility] [place] [address] Social History Tobacco Use Types Packs/Day Years [...] DPS CONVERSION - LAB RESULT SCAN PROCEDURE 03/01/2012 12:00 AM CDT documented in this encounter Results * DPS CONVERSION - LAB RESULT SCAN PROCEDURE (03/01/2012 12:00 AM CDT) Narrative 03/01/2012 12:00 AM CDT Ordered by an unspecified provider. Historical Provider LAB BLOOD ORDERAB LES documented in this encounter Visit Diagnoses Not on filedocumented in this encounter
--- OUTSIDE RECORDS SUMMARY | 2024-06-21 15:57 | XMS_ITS | Encounter Summary ---
Author Organization [facility] Address [address] [place] [address] Phone Care Team Providers Care Machine Rope Maker Name Role Phone Unavailable Primary Care Provider Unavailabl e Encounter Details Date Type Department Care Team (Late st Contact Info) Description 06/29/2012 Legacy Encounter - Labs HISTORICAL CONVERSION [place] [phone], [place] [address] ProviderYoav MD [facility] [place] [address] Social History Tobacco Use Types Packs/Day Years [...] DPS CONVERSION - LAB RESULT SCAN PROCEDURE 06/29/2012 12:00 AM RESEARCH ENVIRONMENTAL SCIENTIST documented in this encounter Results * DPS CONVERSION - LAB RESULT SCAN PROCEDURE (06/29/2012 12:00 AM RESEARCH ENVIRONMENTAL SCIENTIST) Narrative 06/29/2012 12:00 AM RESEARCH ENVIRONMENTAL SCIENTIST Ordered by an unspecified provider. Historical Provider LAB BLOOD ORDERAB LES documented in this encounter Visit Diagnoses Not on filedocumented in this encounter
--- OUTSIDE RECORDS SUMMARY | 2024-06-21 15:57 | XMS_ITS | Clinical Summary ---
Author Organization [facility] Address [address] [place] [address] Care Team Providers Care Bradley Linebacker Crewmember Name Role Phone Pcp, No Primary Care Provider Unavailabl e Allergies Active Allergy Reactions Criticality Noted Date Comments Sulfa Antibiotics Unknown/Patient and Family Unable to Define,Rash/Dermatitis Medium 11/29/2019 Medications Medication Sig Dispensed Refills Start Date End Date Status metoPROLOL TARTRATE (LOPRESSOR) 25 MG tablet Active levothyroxine (SYNTHROID) 100 MCG Recon Soln Active hydroxychloroquine (PLAQUENIL) 200 MG tablet Take 200 mg by mouth. Active DULoxetine (CYMBALTA) 60 MG capsule Active tiZANidine (ZANAFLEX) 2 MG tablet Take 2 mg by mouth. Active traZODone (DESYREL) 50 MG tablet Take 50 mg by mouth nightly. Active nitrofurantoin monohydrate (MACROBID) 100 MG capsuleIndications: Acute cystitis with hematuria Take 1 capsule (100 mg total) by mouth 2 (two) times a day. 10 capsule 05/27/2024 06/01/2024 Active Problems No known active problems Encounters Date Type Department Care Team Description 05/27/2024 2:40 PM EST Office Visit [facility] [address] [address] Alok Pederson MD Devitt, Precious Lopez, SET O TYPE OPERATOR Acute cystitis with hematuria (Primary Dx) 05/27/2024 Travel from Last 3 Months Social History Tobacco Use Types Packs/Day Years Used Date Smoking Tobacco: Never Smokeless Tobacco: Never Sex and Gender Information Value Date Recorded Sex Assigned at Not on file Gender Identity Not on file Sexual Orientation Not on file Last Filed Vital Signs Vital Sign Reading Time Taken Comments Blood Pressure 124/85 05/27/2024 2:52 PM EST Pulse 68 05/27/2024 2:52 PM EST Temperature 35.4 ??C (95.7 ??F) 05/27/2024 2:52 PM ES T Respiratory Rate 18 05/27/2024 2:52 PM EST Oxygen Saturation 95% 05/27/2024 2:52 PM EST Inhaled Oxygen Concentration - - Weight - - Height - - Body Mass Index - - Plan of Treatment Health Maintenance Due Date Last Done Comments Hepatitis C Virus Screening 1964 COVID-19 Vaccine (#1) 1969 HIV Screening 1977 DTaP/Tdap/Td Vaccines (1 - Tdap) 12/24/1983 Hepatitis B Vaccines (1 of 3 - 19+ 3-dose series) 12/24/1983 Pneumococcal Vaccines 50+ (1 of 2 - PCV) 12/24/1983 Zoster (Shingles) Vaccine (1 of 2) 12/24/1983 Pap Smear (Ages 21-65) 1985 Mammogram 2004 Colonoscopy 2009 Influenza Vaccine 12/24/2023 02/26/2018, , 02/20/2012 Procedures Procedure Name Priority Date/Time Associated Diagnosis Comments URINE CULTURE Routine 05/27/2024 3:10 PM EST Acute cystitis with hematuria POCT URINALYSIS DIPSTICK, AUTOMATED Routine 05/27/2024 3:07 PM EST Acute cystitis with hematuria from Last 3 Months Results * (ABNORMAL) URINE CULTURE (05/27/2024 3:10 PM EST) Culture SEE NOTE(A) [employer] Comment: ??CULTURE, URINE, ROUTINE ?Micro Number: ?[id number] ??Test Status: ? Final ??Specimen Source: ?? Urine, clean catch ??Specimen Quality: ??Adequate ??Result: ?Greater than 100,000 CFU/mL of Escherichia coli ?E.coli ?INT ?? PAYTON ?? AMOX/CLAVULANATE ? S ? <=2 ?? AMP/SULBACTAM ?S ? 4 ?? CEFAZOLIN ?NR ?<=4 2 ?? CEFEPIME ? S ? <=0.12 ?? CEFTAZIDIME ?S ? <=1 ?? CEFTRIAXONE ?S ? <=0.25 ?? CIPROFLOXACIN ?S ? 0.12 ?? GENTAMICIN ? S ? <=1 ?? IMIPENEM ? S ? <=0.25 ?? LEVOFLOXACIN ? S ? 0.25 ?? MEROPENEM ?S ? <=0.25 ?? NITROFURANTOIN ? S ? <=16 ?? PIP/TAZOBACTAM ? S ? <=4 ?? TRIMETHOPRIM/SULFA ? S ? <=20 S = Susceptible ??I = Intermediate ??R = Resistant ??NS = Not susceptible SDD = Susceptible Dose Dependent ??* = Not Tested ??NR = Not Reported NN = See Therapy Comments THERAPY COMMENTS ?Note 1: ?For infections other than uncomplicated UTI ?caused by E. coli, K. pneumoniae or P. mirabilis: ?Cefazolin is resistant if PAYTON > or = 8 mcg/mL. ?(Distinguishing susceptible versus intermediate ?for isolates with PAYTON < or = 4 mcg/mL requires ?additional testing.) ?Note 2: ?For uncomplicated UTI caused by E. coli, ?K. pneumoniae or P. mirabilis: Cefazolin is ?susceptible if PAYTON <32 mcg/mL and predicts ?susceptible to the oral agents cefaclor, cefdinir, ?cefpodoxime, cefprozil, cefuroxime, cephalexin ?and loracarbef. Microbiology Urine specimen obtained by clean catch procedure / Unknown 05/27/2024 3:10 PM EST 05/29/2024 3:20 AM EST Precious Carrasco APRN MICROBIOLOGY - GENER AL ORDERABLES [place] [employer] [address] [place] [phone] * (ABNORMAL) POCT Urinalysis Dipstick, Automated (05/27/2024 3:07 PM EST) Source, UA Clean Catch Color, UA Yellow Yellow & Clear, Yellow Clarity, UA Clear Clear Glucose, UA Negative Negative Bilirubin, UA Negative Negative Ketones, UA Negative Negative Spec Grav, UA >=1.030(A) 1.005, 1.010, 1.015, 1.020, 1.025 Blood, UA Large (+++)(A) Negative pH, UA 5.0 5.0, 5.5, 6.0, 6.5, 7.0, 7.5, 8.0 Protein, UA 100 (++)(A) Negative Urobilinogen, UA 0.2 0.2, 1.0 Nitrite, UA Positive(A) Negative Leukocyte Esterase, UA Trace(A) Negative Lot Number [id number] Induction Heating Equipment Setter Pass Pass Urine 05/27/2024 3:07 PM EST Precious Carrasco APRN POINT OF CARE TEST O RDERABLES from Last 3 Months Care Teams Bradley Linebacker Crewmember Relationship Specialty Start Date End Date Pcp, No PCP - General General Medicine 05/27/24
--- OUTSIDE RECORDS SUMMARY | 2024-06-21 15:57 | XMS_ITS | Encounter Summary ---
Author Organization [facility] Address [address] [place] [address] Phone Care Team Providers Care Svp Monetization Name Role Phone Unavailable Primary Care Provider Unavailabl e Encounter Details Date Type Department Care Team (Late st Contact Info) Description 10/23/2009 Legacy Encounter - Labs HISTORICAL CONVERSION [place] [phone], [place] [address] ProviderYoav MD [facility] [place] [address] Social History Tobacco Use Types Packs/Day Years [...] DPS CONVERSION - LAB RESULT SCAN PROCEDURE 10/23/2009 12:00 AM CDT documented in this encounter Results * DPS CONVERSION - LAB RESULT SCAN PROCEDURE (10/23/2009 12:00 AM CDT) Narrative 10/23/2009 12:00 AM CDT Ordered by an unspecified provider. Historical Provider LAB BLOOD ORDERAB LES documented in this encounter Visit Diagnoses Not on filedocumented in this encounter
--- OUTSIDE RECORDS SUMMARY | 2024-06-21 15:57 | XMS_ITS | Encounter Summary ---
Author Organization [facility] Address [address] [place] [address] Care Team Providers Care Dial Maker Name Role Phone Pcp, No Primary Care Provider Unavailabl e Reason for Visit * Reason Comments Urinary Tract Infection Encounter Details Date Type Department Care Team (Late st Contact Info) Description 05/27/2024 2:40 PM EST Office Visit [facility] [address] [phone] Alok Pederson MD [address] [place], [place] [id number] Precious Carrasco APRN [address] [place] [address] Acute cystitis with hematuria (Primary Dx) Social History Tobacco Use Types Packs/Day Years Used Date Smoking Tobacco: Never Smokeless Tobacco: Never Sex and Gender Information Value Date Recorded Sex Assigned at Not on file Gender Identity Not on file Sexual Orientation Not on file documented as of this encounter Last Filed Vital Signs Vital Sign Reading Time Taken Comments Blood Pressure 124/85 05/27/2024 2:52 PM EST Pulse 68 05/27/2024 2:52 PM EST Temperature 35.4 ??C (95.7 ??F) 05/27/2024 2:52 PM ES T Respiratory Rate 18 05/27/2024 2:52 PM EST Oxygen Saturation 95% 05/27/2024 2:52 PM EST Inhaled Oxygen Concentration - - Weight - - Height - - Body Mass Index - - documented in this encounter Progress Notes * Precious Carrasco APRN - 05/27/2024 3:06 PM EST Assessment & Plan Fabiana was seen today for urinary tract infection. Diagnoses and all orders for this visit: Acute cystitis with hematuria - POCT Urinalysis Dipstick, Automated - URINE CULTURE - nitrofurantoin monohydrate (MACROBID) 100 MG capsule; Take 1 capsule (100 mg total) by mouth 2 (two) times a day. Medical Decision Making: UTI. The following higher risk features were NOT present on today's evaluation: Fever Abdominal pain Flank pain Gross hematuria Dehydration Severe nausea and vomiting Recent urological procedure Evidence of kidney stone I considered pyelonephritis, kidney stone, appy, torsion and other bacterial infxs but the hx, exam& data did not support the diagnoses. The pt/family was advised that some dzs present atypically & the pt was given explicit DC instructions. UA dipstick positive for infection. Sending urinefor culture. Will empirically start on ABX. Patient advised we will call her if any changes to treatment plan are necessary pending culture results. If any new or worsening symptoms return for recheck. Communication barriers and lifestyle preferences were addressed with the Patient and/or family . The care plan including medications and self-management goals were reviewed to the best of the Patientand/or family's ability. All questions and concerns were answered. Patient and/or family verbalizedunderstanding of the plan of care. Ignacio Fraser is a 58 y.o. female HPI Chief Complaint: Dysuria, urgency and frequency Duration: 3 days Context: Acute Severity: Moderate Other Pertinent History: Does have a history of lupus. Last time she had a UTI she did be treated with 2 different medications, history of resistant infection. There is no fever, chills, nausea, vomiting, diarrhea, flank pain, back pain, rigors, vaginal DC, gross hematuria, recent urological procedure, kidney stone or abdominal pain. Denies any severe symptoms at today's exam. History reviewed. No pertinent past medical history. History reviewed. No pertinent surgical history. Social History Tobacco Use Smoking status: Never Smokeless tobacco: Never History reviewed. No pertinent family history. Review of Systems: All other systems reviewed are negative except where documented below: Cardiovascular: No Chest pain Pulmonary: No SOB Gastrointestinal: No Vomiting; No Diarrhea Constitutional: No Fever Objective Vitals: 05/27/24 1452 BP: 124/85 Pulse: 68 Resp: 18 Temp: (!) 95.7 ??F (35.4 ??C) SpO2: 95% Vital signs reviewed. Constitutional: Well-appearing, in no apparent respiratory distress. Does not appear toxic Eyes: Conjunctivae Clear, No Icterus Ear, Nose, Mouth, Throat: Grossly normal inspection. Normal voice, handling secretions normally Skin: Normal for age and race, grossly normal temperature and turgor. No acute rash. Neurologic: Alert and appropriate, no apparent acute deficits. Normal gait Psychiatric: Mood and manner are appropriate. Grooming and personal hygiene are appropriate. No results found for this or any previous visit. Precious Carrasco APRN 05/27/24 3:06 PM documented in this encounter Plan of Treatment Not on file documented as of this encounter Procedures Procedure Name Priority Date/Time Associated Diagnosis Comments URINE CULTURE Routine 05/27/2024 3:10 PM EST Acute cystitis with hematuria POCT URINALYSIS DIPSTICK, AUTOMATED Routine 05/27/2024 3:07 PM EST Acute cystitis with hematuria documented in this encounter Results * (ABNORMAL) URINE CULTURE (05/27/2024 3:10 PM EST) Culture SEE NOTE(A) [employer] Comment: ??CULTURE, URINE, ROUTINE ?Micro Number: ?[id number] ??Test Status: ? Final ??Specimen Source: ?? [...] Carrasco APRN MICROBIOLOGY - GENER AL ORDERABLES [email or web address] [address] [place] [phone] * (ABNORMAL) POCT Urinalysis Dipstick, Automated (05/27/2024 [...] Leukocyte Esterase, UA Trace(A) Negative Lot Number [id number] Title Investigator Pass Pass Urine 05/27/2024 3:07 PM EST Precious Carrasco APRN POINT OF CARE TEST O RDERABLES documented in this encounter Visit Diagnoses Diagnosis Acute cystitis with hematuria- Primary documented in this encounter Care Teams Dial Maker Relationship Specialty Start Date End Date Pcp, No PCP - General General Medicine 05/27/24 documented as of this encounter
--- OUTSIDE RECORDS SUMMARY | 2024-06-21 15:57 | XMS_ITS | Encounter Summary ---
Author Organization [facility] Address [address] [place] [address] Phone Care Team Providers Care Food Dehydrator Operator Name Role Phone Unavailable Primary Care Provider Unavailabl e Encounter Details Date Type Department Care Team (Late st Contact Info) Description 11/01/2013 Abstract HISTORICAL CONVERSION [place] [phone] ProviderYoav MD [facility] [place] [phone] Social History Tobacco Use Types Packs/Day Years [...]
--- OUTSIDE RECORDS SUMMARY | 2024-06-21 15:57 | XMS_ITS | Encounter Summary ---
Author Organization [facility] Address [address] [place] [address] Phone Care Team Providers Care Premix Operator Concentrate Name Role Phone Unavailable Primary Care Provider Unavailabl e Encounter Details Date Type Department Care Team (Late st Contact Info) Description 07/06/2009 Abstract HISTORICAL CONVERSION [place] [phone] ProviderYoav MD [facility] [place] [phone] Social History Tobacco Use Types Packs/Day Years [...]
--- OUTSIDE RECORDS SUMMARY | 2024-06-21 15:57 | XMS_ITS | Encounter Summary ---
Author Organization [facility] Address [address] [place] [address] Phone Care Team Providers Care Aba Tutor Name Role Phone Unavailable Primary Care Provider Unavailabl e Encounter Details Date Type Department Care Team (Late st Contact Info) Description 09/13/2012 Legacy Encounter - Labs HISTORICAL CONVERSION [place] [phone], [place] [address] ProviderYoav MD [facility] [place] [address] Social History Tobacco Use Types Packs/Day Years [...] DPS CONVERSION - LAB RESULT SCAN PROCEDURE 09/13/2012 12:00 AM CDT documented in this encounter Results * DPS CONVERSION - LAB RESULT SCAN PROCEDURE (09/13/2012 12:00 AM CDT) Narrative 09/13/2012 12:00 AM CDT Ordered by an unspecified provider. Historical Provider LAB BLOOD ORDERAB LES documented in this encounter Visit Diagnoses Not on filedocumented in this encounter
--- OUTSIDE RECORDS SUMMARY | 2024-06-21 15:57 | XMS_ITS | Encounter Summary ---
Author Organization [facility] Address [address] [place] [address] Phone Care Team Providers Care Poultry Buyer Name Role Phone Unavailable Primary Care Provider Unavailabl e Encounter Details Date Type Department Care Team (Late st Contact Info) Description 03/29/2009 Legacy Encounter - Labs HISTORICAL CONVERSION [place] [phone], [place] [address] Provider[place] [address] Social History Tobacco Use Types Packs/Day Years [...] DPS CONVERSION - LAB RESULT SCAN PROCEDURE 03/30/2009 12:00 AM MANAGER OF DISTRIBUTION DPS CONVERSION - LAB RESULT SCAN PROCEDURE 03/29/2009 12:00 AM MANAGER OF DISTRIBUTION documented in this encounter Results * DPS CONVERSION - LAB RESULT SCAN PROCEDURE (03/30/2009 12:00 AM MANAGER OF DISTRIBUTION) Narrative 03/30/2009 12:00 AM MANAGER OF DISTRIBUTION Ordered by an unspecified provider. Historical Provider LAB BLOOD ORDERAB LES * DPS CONVERSION - LAB RESULT SCAN PROCEDURE (03/29/2009 12:00 AM MANAGER OF DISTRIBUTION) Narrative 03/29/2009 12:00 AM MANAGER OF DISTRIBUTION Ordered by an unspecified provider. Historical Provider LAB BLOOD ORDERAB LES documented in this encounter Visit Diagnoses Not on filedocumented in this encounter
--- OUTSIDE RECORDS SUMMARY | 2024-06-21 15:57 | XMS_ITS | Encounter Summary ---
Author Organization [facility] Address [address] [place] [address] Phone Care Team Providers Care Wheat Buyer Name Role Phone Unavailable Primary Care Provider Unavailabl e Encounter Details Date Type Department Care Team (Late st Contact Info) Description 10/29/2013 Legacy Encounter - Labs HISTORICAL CONVERSION [place] [phone], [place] [address] ProviderYoav MD [address] [place] [address] Social History Tobacco Use Types Packs/Day Years [...] DPS CONVERSION - LAB RESULT SCAN PROCEDURE 10/29/2013 12:00 AM CDT DPS CONVERSION - LAB RESULT SCAN PROCEDURE 10/29/2013 12:00 AM CDT documented in this encounter Results * DPS CONVERSION - LAB RESULT SCAN PROCEDURE (10/29/2013 12:00 AM CDT) Narrative 10/29/2013 12:00 AM CDT Ordered by an unspecified provider. Historical Provider LAB BLOOD ORDERAB LES * DPS CONVERSION - LAB RESULT SCAN PROCEDURE (10/29/2013 12:00 AM CDT) Narrative 10/29/2013 12:00 AM CDT Ordered by an unspecified provider. Historical Provider LAB BLOOD ORDERAB LES documented in this encounter Visit Diagnoses Not on filedocumented in this encounter
--- OUTSIDE RECORDS SUMMARY | 2024-06-21 15:57 | XMS_ITS | Encounter Summary ---
Author Organization [facility] Address [address] [place] [phone] Phone Care Team Providers Care Electrical Solderer Name Role Phone Unavailable Primary Care Provider Unavailabl e Encounter Details Date Type Department Care Team (Late st Contact Info) Description 08/07/2012 Legacy Encounter - Labs HISTORICAL CONVERSION [place] [phone], [place] [address] ProviderYoav MD [facility] [place] [address] Social History Tobacco Use Types Packs/Day Years [...] DPS CONVERSION - LAB RESULT SCAN PROCEDURE 08/07/2012 12:00 AM CDT documented in this encounter Results * DPS CONVERSION - LAB RESULT SCAN PROCEDURE (08/07/2012 12:00 AM CDT) Narrative 08/07/2012 12:00 AM CDT Ordered by an unspecified provider. Historical Provider LAB BLOOD ORDERAB LES documented in this encounter Visit Diagnoses Not on filedocumented in this encounter
--- OUTSIDE RECORDS SUMMARY | 2024-06-21 15:57 | XMS_ITS | Encounter Summary ---
Author Organization [facility] Address [address] [place] [address] Phone Care Team Providers Care Cell Builder Name Role Phone Unavailable Primary Care Provider Unavailabl e Encounter Details Date Type Department Care Team (Late st Contact Info) Description 09/12/2010 Legacy Encounter - Labs HISTORICAL CONVERSION [place] [phone], [place] [address] ProviderYoav MD [address] [place] [address] Social History Tobacco Use Types Packs/Day Years [...] DPS CONVERSION - LAB RESULT SCAN PROCEDURE 09/13/2010 12:00 AM CDT DPS CONVERSION - LAB RESULT SCAN PROCEDURE 09/12/2010 12:00 AM CDT documented in this encounter Results * DPS CONVERSION - LAB RESULT SCAN PROCEDURE (09/13/2010 12:00 AM CDT) Narrative 09/13/2010 12:00 AM CDT Ordered by an unspecified provider. Historical Provider LAB BLOOD ORDERAB LES * DPS CONVERSION - LAB RESULT SCAN PROCEDURE (09/12/2010 12:00 AM CDT) Narrative 09/12/2010 12:00 AM CDT Ordered by an unspecified provider. Historical Provider LAB BLOOD ORDERAB LES documented in this encounter Visit Diagnoses Not on filedocumented in this encounter
--- OUTSIDE RECORDS SUMMARY | 2024-06-21 15:57 | XMS_ITS | Encounter Summary ---
Author Organization [facility] Address [address] [place] [address] Phone Care Team Providers Care Canvas Goods Supervisor Name Role Phone Unavailable Primary Care Provider Unavailabl e Encounter Details Date Type Department Care Team (Late st Contact Info) Description 09/01/2012 Legacy Encounter - Labs HISTORICAL CONVERSION [place] [phone], [place] [address] ProviderYoav [place] [address] Social History Tobacco Use Types Packs/Day Years [...] DPS CONVERSION - LAB RESULT SCAN PROCEDURE 09/03/2012 12:00 AM CDT DPS CONVERSION - LAB RESULT SCAN PROCEDURE 09/01/2012 12:00 AM CDT documented in this encounter Results * DPS CONVERSION - LAB RESULT SCAN PROCEDURE (09/03/2012 12:00 AM CDT) Narrative 09/03/2012 12:00 AM CDT Ordered by an unspecified provider. Historical Provider LAB BLOOD ORDERAB LES * DPS CONVERSION - LAB RESULT SCAN PROCEDURE (09/01/2012 12:00 AM CDT) Narrative 09/01/2012 12:00 AM CDT Ordered by an unspecified provider. Historical Provider LAB BLOOD ORDERAB LES documented in this encounter Visit Diagnoses Not on filedocumented in this encounter
--- OUTSIDE RECORDS SUMMARY | 2024-06-21 15:57 | XMS_ITS | Encounter Summary ---
Author Organization [facility] Address [address] [place] [address] Care Team Providers Care Doctor Of Radiology Name Role Phone Pcp, No Primary Care Provider Unavailabl e Encounter Details Date Type Department Care Team (Latest Contact Info) Description 05/27/2024 Travel Social History Tobacco Use Types Packs/Day Years Used Date Smoking Tobacco: Never Smokeless Tobacco: Never Sex and Gender Information Value Date Recorded Sex Assigned at Not on file Gender Identity Not on file Sexual Orientation Not on file documented as of this encounter Plan of Treatment Not on file documented as of this encounter Visit Diagnoses Not on filedocumented in this encounter Care Teams Doctor Of Radiology Relationship Specialty Start Date End Date Pcp, No PCP - General General Medicine 05/27/24 documented as of this encounter
[2024-06-21 15:58] LABS: Alanine Aminotransferase 14 U/L (0-31); Albumin Level 3.8 g/dL (3.5-5.0); Alkaline Phosphatase 55 U/L (39-117); Anion Gap 12 (12-20); Aspartate Amino Transferase 21 U/L (5-31); Bilirubin Total 0.3 mg/dL (0.0-1.0); Blood Urea Nitrogen 17 mg/dL (9-16); C Reactive Protein 0.34 mg/dL (< or = 0.50); Calcium 8.5 mg/dL (8.4-10.2); Carbon Dioxide 29 mmol/L (22-29); Chloride 106 mmol/L (96-108); Estimated Glomerular Filt Rate > 60; Glucose Random 104 mg/dL (60-115); Sodium 143 mmol/L (135-145); Total Protein 7.1 g/dL (6.5-8.0)
--- OUTSIDE RECORDS SUMMARY | 2024-06-21 15:58 | XMS_ITS | Encounter Summary ---
Author Organization [facility] Address [address] [place] [address] Phone Care Team Providers Care It Support Manager Name Role Phone Unavailable Primary Care Provider Unavailabl e Encounter Details Date Type Department Care Team (Late st Contact Info) Description 02/13/2014 Legacy Encounter - Labs HISTORICAL CONVERSION [place] [address] [phone], [place] [address] ProviderYoav MD [facility] [place] [address] Social History Tobacco Use Types Packs/Day Years [...] DPS CONVERSION - LAB RESULT SCAN PROCEDURE 02/13/2014 12:00 AM CDT documented in this encounter Results * DPS CONVERSION - LAB RESULT SCAN PROCEDURE (02/13/2014 12:00 AM CDT) Narrative 02/13/2014 12:00 AM CDT Ordered by an unspecified provider. Historical Provider LAB BLOOD ORDERAB LES documented in this encounter Visit Diagnoses Not on filedocumented in this encounter
--- OUTSIDE RECORDS SUMMARY | 2024-06-21 15:58 | XMS_ITS ---
Author Organization [facility], [facility] Address [address] [place] [phone] Care Team Providers Care Fine Dining Server Name Role Phone HARMEET RAMON Primary Care Provider [phone] [facility] MALICK STANTON Unavailable [phone] REASON FOR VISIT Refills MEDICATIONS Medication SIG (Take, Route, Frequency, Duration) Notes Start Date End Date Status Metoprolol Succinate 25 MG 1 capsule Ora lly twice a day for 30 days 10/02/2023 Active Encounters Encounter Location Date Provider Diagnosis [facility], [facility] [address] [place], [place] [id number] 10/02/2023 MALICK STANTON PLAN OF TREATMENT Medication Medication Name Sig Start Date Stop Date Notes Metoprolol Succinate 25 MG 1 capsule Ora lly twice a day for 30 days 10/02/2023 Metoprolol Succinate 25 MG 1 capsule Orally Once a day Progress Notes * BLANCA FANALEJANDROOB: 5 (57 yo F)Acc No.[id number]:10/02/2023 Patient:??CHINTAN FAN :1965?Age:57 Y?Sex:Fe male Phone: Address:[address] [place] [address], [address], [place] [address] * Refills?? Stop Metoprolol Succinate Capsule ER 24 Hour Sprinkle, 25 MG, Orally, 1 capsule, Once a day Start Metoprolol Succinate Capsule ER 24 Hour Sprinkle, 25 MG, Orally, 60 Capsule, 1 capsule, twice a day, 30 days * true * Date:??
--- OUTSIDE RECORDS SUMMARY | 2024-06-21 15:58 | XMS_ITS | Encounter Summary ---
Author Organization [facility] Address [address] [place] [address] Phone Care Team Providers Care Electronics Repair Technician Name Role Phone Unavailable Primary Care Provider Unavailabl e Encounter Details Date Type Department Care Team (Late st Contact Info) Description 03/13/2015 Legacy Encounter - Labs HISTORICAL CONVERSION [place] [address] [address], [place] [address] ProviderYoav MD [facility] [place] [address] Social History Tobacco Use Types Packs/Day Years [...] DPS CONVERSION - LAB RESULT SCAN PROCEDURE 03/13/2015 12:00 AM CDT documented in this encounter Results * DPS CONVERSION - LAB RESULT SCAN PROCEDURE (03/13/2015 12:00 AM CDT) Narrative 03/13/2015 12:00 AM CDT Ordered by an unspecified provider. Historical Provider LAB BLOOD ORDERAB LES documented in this encounter Visit Diagnoses Not on filedocumented in this encounter
--- OUTSIDE RECORDS SUMMARY | 2024-06-21 15:58 | XMS_ITS | Encounter Summary ---
Author Organization [facility] Address [address] [place] [address] Phone Care Team Providers Care Psychiatric Aides Teacher Name Role Phone Unavailable Primary Care Provider Unavailabl e Encounter Details Date Type Department Care Team (Late st Contact Info) Description 07/15/2011 Legacy Encounter - Labs HISTORICAL CONVERSION [place] [phone], [place] [address] ProviderYoav MD [facility] [place] [phone] Social History Tobacco Use Types Packs/Day Years [...] DPS CONVERSION - LAB RESULT SCAN PROCEDURE 07/15/2011 12:00 AM GAS DERRICK OPERATOR documented in this encounter Results * DPS CONVERSION - LAB RESULT SCAN PROCEDURE (07/15/2011 12:00 AM GAS DERRICK OPERATOR) Narrative 07/15/2011 12:00 AM GAS DERRICK OPERATOR Ordered by an unspecified provider. Historical Provider LAB BLOOD ORDERAB LES documented in this encounter Visit Diagnoses Not on filedocumented in this encounter
--- OUTSIDE RECORDS SUMMARY | 2024-06-21 15:58 | XMS_ITS | Encounter Summary ---
Author Organization [facility] Address [address] [place] [address] Phone Care Team Providers Care Lien Searcher Name Role Phone Unavailable Primary Care Provider Unavailabl e Encounter Details Date Type Department Care Team (Late st Contact Info) Description 03/28/2015 Abstract HISTORICAL CONVERSION [place] [id number] ProviderYoav MD [facility] [place] [phone] Social History Tobacco Use Types Packs/Day Years [...]
--- OUTSIDE RECORDS SUMMARY | 2024-06-21 15:58 | XMS_ITS | Encounter Summary ---
Author Organization [facility] Address [address] [place] [address] Phone Care Team Providers Care Inspector Outside Steam Distribution Name Role Phone Unavailable Primary Care Provider Unavailabl e Encounter Details Date Type Department Care Team (Late st Contact Info) Description 08/18/2015 Legacy Encounter - Labs HISTORICAL CONVERSION [place] [address], [place] [address] ProviderYoav MD [facility] [place] [address] Social History Tobacco Use Types Packs/Day Years [...] DPS CONVERSION - LAB RESULT SCAN PROCEDURE 08/18/2015 12:00 AM CDT documented in this encounter Results * DPS CONVERSION - LAB RESULT SCAN PROCEDURE (08/18/2015 12:00 AM CDT) Narrative 08/18/2015 12:00 AM CDT Ordered by an unspecified provider. Historical Provider LAB BLOOD ORDERAB LES documented in this encounter Visit Diagnoses Not on filedocumented in this encounter
--- OUTSIDE RECORDS SUMMARY | 2024-06-21 15:58 | XMS_ITS | Clinical Summary ---
Author Organization [facility] Address [address] [place] [address] Phone Care Team Providers Care Occupational Therapy Program Director Name Role Phone Unavailable Primary Care Provider Unavailabl e Medications Medication Sig Dispensed Refills Start Date End Date Status RABEprazole (ACIPHEX) 20 MG EC tablet RABEprazole Sodium( 20MG Oral 1 daily ) Active -Hx Entry 03/27/2015 Active traZODone (DESYREL) 100 MG tablet TraZODone HCl 100MG, 1 (one) Tablet at bedtime # 90, 09/05/2015, Ref. x2. Active 2 09/05/2015 Active DULoxetine (Cymbalta) [address] capsule 11/01/2013 Active hydroxychloroquine (Plaquenil) 200 MG tablet 11/01/2013 Active mycophenolate (CellCept) 500 MG tablet CellCept 500MG, 1 Tablet two times daily # 60, 09/10/2010, Ref. x9. Active 9 09/10/2010 Active gabapentin (Neurontin) 300 MG capsule Neurontin 300MG, 1 in AM 2 in PM Capsule Capsule daily # 60, 11/11/2012, Ref. x3. Active 3 11/11/2012 Active levothyroxine (SYNTHROID) 150 MCG tablet Levothyroxine Sodium( 150MCG Oral 1 daily ) Active -Hx Entry 03/27/2015 Active diclofenac (VOLTAREN) 75 MG EC tablet Diclofenac Sodium( 75MG Oral 1 daily ) Active -Hx Entry 03/27/2015 Active lubiprostone (Amitiza) 24 MCG capsule Amitiza( 24MCG Oral 1 two times daily ) Active -Hx Entry 03/27/2015 Active acetaminophen (TYLENOL) 500 MG tablet Tylenol Extra Strength( 500MG Oral 1 as needed ) Active -Hx Entry 03/27/2015 Active HYDROcodone-acetami nophen (Jermyn) 10-325 MG per tablet Jermyn( 10-325MG Oral 1 as needed ) Active -Hx Entry 03/27/2015 Active Active Problems Problem Noted Date Diagnosed Date Essential (primary) hypertension 03/27/2015 Anemia 03/27/2015 Systemic lupus erythematosus 03/27/2015 Vitamin D deficiency 03/27/2015 Social History Tobacco Use Types Packs/Day Years Used Date Smoking Tobacco: Never Assessed Sex and Gender Information Value Date Recorded Sex Assigned at Not on file Gender Identity Not on file Sexual Orientation Not on file Last Filed Vital Signs Vital Sign Reading Time Taken Comments Blood Pressure 122/74 03/27/2015 12:01 AM CAREER AND TRANSITION TEACHER Pulse 80 03/27/2015 12:01 AM CAREER AND TRANSITION TEACHER Temperature - - Respiratory Rate - - Oxygen Saturation - - Inhaled Oxygen Concentration - - Weight 68.9 kg (152 lb) 03/27/2015 12:01 AM CAREER AND TRANSITION TEACHER Height 162.6 cm (5' 4 ) 03/27/2015 12:01 AM CAREER AND TRANSITION TEACHER Body Mass Index 26.09 03/27/2015 12:01 AM CAREER AND TRANSITION TEACHER Plan of Treatment Not on file
--- OUTSIDE RECORDS SUMMARY | 2024-06-21 15:58 | XMS_ITS | Encounter Summary ---
Author Organization [facility] Address [address] [place] [address] Phone Care Team Providers Care English Lecturer Name Role Phone Unavailable Primary Care Provider Unavailabl e Encounter Details Date Type Department Care Team (Late st Contact Info) Description 01/09/2014 Legacy Encounter - Labs HISTORICAL CONVERSION [place] [address] [phone], [place] [address] ProviderYoav MD [address] [place] [address] Social History Tobacco Use Types Packs/Day Years [...] DPS CONVERSION - LAB RESULT SCAN PROCEDURE 01/09/2014 12:00 AM CDT DPS CONVERSION - LAB RESULT SCAN PROCEDURE 01/09/2014 12:00 AM CDT documented in this encounter Results * DPS CONVERSION - LAB RESULT SCAN PROCEDURE (01/09/2014 12:00 AM CDT) Narrative 01/09/2014 12:00 AM CDT Ordered by an unspecified provider. Historical Provider LAB BLOOD ORDERAB LES * DPS CONVERSION - LAB RESULT SCAN PROCEDURE (01/09/2014 12:00 AM CDT) Narrative 01/09/2014 12:00 AM CDT Ordered by an unspecified provider. Historical Provider LAB BLOOD ORDERAB LES documented in this encounter Visit Diagnoses Not on filedocumented in this encounter
--- OUTSIDE RECORDS SUMMARY | 2024-06-21 15:58 | XMS_ITS | Encounter Summary ---
Author Organization [facility] Address [address] [place] [address] Phone Care Team Providers Care Fire Alarm Inspector Name Role Phone Unavailable Primary Care Provider Unavailabl e Encounter Details Date Type Department Care Team (Late st Contact Info) Description 03/09/2014 Legacy Encounter - Labs HISTORICAL CONVERSION [place] [address] [address], [place] [address] ProviderYoav MD [facility] [place] [address] Social History Tobacco Use Types Packs/Day Years [...] DPS CONVERSION - LAB RESULT SCAN PROCEDURE 03/09/2014 12:00 AM CDT documented in this encounter Results * DPS CONVERSION - LAB RESULT SCAN PROCEDURE (03/09/2014 12:00 AM CDT) Narrative 03/09/2014 12:00 AM CDT Ordered by an unspecified provider. Historical Provider LAB BLOOD ORDERAB LES documented in this encounter Visit Diagnoses Not on filedocumented in this encounter
--- OUTSIDE RECORDS SUMMARY | 2024-06-21 15:58 | XMS_ITS | Encounter Summary ---
Author Organization [facility] Address [address] [place] [address] Phone Care Team Providers Care Data Warehouse Manager Name Role Phone Unavailable Primary Care Provider Unavailabl e Encounter Details Date Type Department Care Team (Late st Contact Info) Description 03/27/2015 Clinical Support HISTORICAL [address] [address] ProviderYoav MD [facility] [place] [phone] Social History Tobacco Use Types Packs/Day Years [...]
--- OUTSIDE RECORDS SUMMARY | 2024-06-21 15:58 | XMS_ITS | Encounter Summary ---
Author Organization [facility] Address [address] [place] [address] Phone Care Team Providers Care Wine Specialist Name Role Phone Unavailable Primary Care Provider Unavailabl e Encounter Details Date Type Department Care Team (Late st Contact Info) Description 01/18/2014 Legacy Encounter - Labs HISTORICAL CONVERSION [place] [address], [place] [address] ProviderYoav MD [address] [place] [address] Social History Tobacco Use Types Packs/Day Years [...] DPS CONVERSION - LAB RESULT SCAN PROCEDURE 01/19/2014 12:00 AM CDT DPS CONVERSION - LAB RESULT SCAN PROCEDURE 01/18/2014 12:00 AM CDT documented in this encounter Results * DPS CONVERSION - LAB RESULT SCAN PROCEDURE (01/19/2014 12:00 AM CDT) Narrative 01/19/2014 12:00 AM CDT Ordered by an unspecified provider. Historical Provider LAB BLOOD ORDERAB LES * DPS CONVERSION - LAB RESULT SCAN PROCEDURE (01/18/2014 12:00 AM CDT) Narrative 01/18/2014 12:00 AM CDT Ordered by an unspecified provider. Historical Provider LAB BLOOD ORDERAB LES documented in this encounter Visit Diagnoses Not on filedocumented in this encounter
--- OUTSIDE RECORDS SUMMARY | 2024-06-21 15:58 | XMS_ITS | Encounter Summary ---
Author Organization [facility] Address [address] [place] [address] Phone Care Team Providers Care Conveyor Feeder Name Role Phone Unavailable Primary Care Provider Unavailabl e Encounter Details Date Type Department Care Team (Late st Contact Info) Description 08/17/2015 Legacy Encounter - Labs HISTORICAL CONVERSION [place] [address], [place] [address] ProviderYo[place] [address] Social History Tobacco Use Types Packs/Day Years [...] DPS CONVERSION - LAB RESULT SCAN PROCEDURE 08/17/2015 12:00 AM CDT documented in this encounter Results * DPS CONVERSION - LAB RESULT SCAN PROCEDURE (08/17/2015 12:00 AM CDT) Narrative 08/17/2015 12:00 AM CDT Ordered by an unspecified provider. Historical Provider LAB BLOOD ORDERAB LES documented in this encounter Visit Diagnoses Not on filedocumented in this encounter
--- OUTSIDE RECORDS SUMMARY | 2024-06-21 15:58 | XMS_ITS | Encounter Summary ---
Author Organization [facility] Address [address] [place] [address] Phone Care Team Providers Care Maple Sugar Maker Name Role Phone Unavailable Primary Care Provider Unavailabl e Encounter Details Date Type Department Care Team (Late st Contact Info) Description 03/23/2014 Legacy Encounter - Labs HISTORICAL CONVERSION [place] [address] [address], [place] [address] ProviderYoav [place] [address] Social History Tobacco Use Types Packs/Day Years [...] DPS CONVERSION - LAB RESULT SCAN PROCEDURE 03/23/2014 12:00 AM CDT documented in this encounter Results * DPS CONVERSION - LAB RESULT SCAN PROCEDURE (03/23/2014 12:00 AM CDT) Narrative 03/23/2014 12:00 AM CDT Ordered by an unspecified provider. Historical Provider LAB BLOOD ORDERAB LES documented in this encounter Visit Diagnoses Not on filedocumented in this encounter
--- OUTSIDE RECORDS SUMMARY | 2024-06-21 15:58 | XMS_ITS ---
Author Organization [facility], [facility] Address [address] [place] [phone] Care Team Providers Care Working Second Hand Name Role Phone HARMEETCHINORAMON Primary Care Provider [phone] MALICK FAULKNER Unavailable [phone] REASON FOR VISIT Rx Change MEDICATIONS Medication SIG (Take, Route, Frequency, Duration) Notes Start Date End Date Status Metoprolol Succinate 50 MG 1 capsule Ora lly Once a day for 90 days 10/06/2023 Active Encounters Encounter Location Date Provider Diagnosis [address] [phone] 10/05/2023 MALICK STANTON PLAN OF TREATMENT Medication Medication Name Sig Start Date Stop Date Notes Metoprolol Succinate 25 MG 1 capsule Orally twice a day Metoprolol Succinate 50 MG 1 capsule Ora lly Once a day for 90 days 10/06/2023 Progress Notes * BLANCA FANALEJANDROOB: 5 (57 yo F)Acc No.[id number]:10/05/2023 Patient:??CHINTAN FAN :1965?Age:57 Y?Sex:Fe male Phone: Address:[address] [place] [address], [address], [place] [address] * Refills?? Stop Metoprolol Succinate Capsule ER 24 Hour Sprinkle, 25 MG, Orally, 1 capsule, twice a day Start Metoprolol Succinate Capsule ER 24 Hour Sprinkle, 50 MG, Orally, 90 Capsule, 1 capsule, Once a day, 90 days, Refills=5 * true * Date:??
--- OUTSIDE RECORDS SUMMARY | 2024-06-21 15:59 | XMS_ITS | Encounter Summary ---
Author Organization [facility] Address [address] [place] [address] Phone Care Team Providers Care Ship Self Defense System Mk1 Operator Name Role Phone Unavailable Primary Care Provider Unavailabl e Encounter Details Date Type Department Care Team (Late st Contact Info) Description 11/06/2006 Legacy Encounter - Labs HISTORICAL CONVERSION [place] [address] [address], [place] [address] ProviderYoav MD [facility] [place] [address] Social History Tobacco Use Types Packs/Day Years [...] DPS CONVERSION - LAB RESULT SCAN PROCEDURE 11/06/2006 12:00 AM CDT DPS CONVERSION - LAB RESULT SCAN PROCEDURE 11/06/2006 12:00 AM CDT DPS CONVERSION - LAB RESULT SCAN PROCEDURE 11/06/2006 12:00 AM CDT DPS CONVERSION - LAB RESULT SCAN PROCEDURE 11/06/2006 12:00 AM CDT documented in this encounter Results * DPS CONVERSION - LAB RESULT SCAN PROCEDURE (11/06/2006 12:00 AM CDT) Narrative 11/06/2006 12:00 AM CDT Ordered by an unspecified provider. Historical Provider LAB BLOOD ORDERAB LES * DPS CONVERSION - LAB RESULT SCAN PROCEDURE (11/06/2006 12:00 AM CDT) Narrative 11/06/2006 12:00 AM CDT Ordered by an unspecified provider. Historical Provider LAB BLOOD ORDERAB LES * DPS CONVERSION - LAB RESULT SCAN PROCEDURE (11/06/2006 12:00 AM CDT) Narrative 11/06/2006 12:00 AM CDT Ordered by an unspecified provider. Historical Provider LAB BLOOD ORDERAB LES * DPS CONVERSION - LAB RESULT SCAN PROCEDURE (11/06/2006 12:00 AM CDT) Narrative 11/06/2006 12:00 AM CDT Ordered by an unspecified provider. Historical Provider LAB BLOOD ORDERAB LES documented in this encounter Visit Diagnoses Not on filedocumented in this encounter
--- OUTSIDE RECORDS SUMMARY | 2024-06-21 15:59 | XMS_ITS | Encounter Summary ---
Author Organization [facility] Address [address] [place] [address] Phone Care Team Providers Care Solder Deposit Operator Name Role Phone Unavailable Primary Care Provider Unavailabl e Encounter Details Date Type Department Care Team (Late st Contact Info) Description 05/04/2006 Legacy Encounter - Labs HISTORICAL CONVERSION [place] [address], [place] [address] ProviderYoav MD [facility] [place] [address] Social History Tobacco Use Types Packs/Day Years [...] DPS CONVERSION - LAB RESULT SCAN PROCEDURE 05/04/2006 12:00 AM STEEL FIXER documented in this encounter Results * DPS CONVERSION - LAB RESULT SCAN PROCEDURE (05/04/2006 12:00 AM STEEL FIXER) Narrative 05/04/2006 12:00 AM STEEL FIXER Ordered by an unspecified provider. Historical Provider LAB BLOOD ORDERAB LES documented in this encounter Visit Diagnoses Not on filedocumented in this encounter
--- OUTSIDE RECORDS SUMMARY | 2024-06-21 15:59 | XMS_ITS | Encounter Summary ---
Author Organization [facility] Address [address] [place] [address] Phone Care Team Providers Care Stucco Applicator Name Role Phone Unavailable Primary Care Provider Unavailabl e Encounter Details Date Type Department Care Team (Late st Contact Info) Description 10/05/2008 Legacy Encounter - Labs HISTORICAL CONVERSION [place] [address], [place] [address] ProviderYoav MD [facility] [place] [address] Social History Tobacco Use Types Packs/Day Years [...] DPS CONVERSION - LAB RESULT SCAN PROCEDURE 10/05/2008 12:00 AM CDT documented in this encounter Results * DPS CONVERSION - LAB RESULT SCAN PROCEDURE (10/05/2008 12:00 AM CDT) Narrative 10/05/2008 12:00 AM CDT Ordered by an unspecified provider. Historical Provider LAB BLOOD ORDERAB LES documented in this encounter Visit Diagnoses Not on filedocumented in this encounter
--- OUTSIDE RECORDS SUMMARY | 2024-06-21 15:59 | XMS_ITS | Encounter Summary ---
Author Organization [facility] Address [address] [place] [address] Phone Care Team Providers Care Jive Developer Name Role Phone Unavailable Primary Care Provider Unavailabl e Encounter Details Date Type Department Care Team (Late st Contact Info) Description 01/30/2006 Legacy Encounter - Labs HISTORICAL CONVERSION [place] [address], [place] [address] ProviderYoav MD [facility] [place] [address] Social History Tobacco Use Types Packs/Day Years [...] DPS CONVERSION - LAB RESULT SCAN PROCEDURE 01/30/2006 12:00 AM CDT documented in this encounter Results * DPS CONVERSION - LAB RESULT SCAN PROCEDURE (01/30/2006 12:00 AM CDT) Narrative 01/30/2006 12:00 AM CDT Ordered by an unspecified provider. Historical Provider LAB BLOOD ORDERAB LES documented in this encounter Visit Diagnoses Not on filedocumented in this encounter
--- OUTSIDE RECORDS SUMMARY | 2024-06-21 15:59 | XMS_ITS | Encounter Summary ---
Author Organization [facility] Address [address] [place] [address] Phone Care Team Providers Care Metal Hardener Name Role Phone Unavailable Primary Care Provider Unavailabl e Encounter Details Date Type Department Care Team (Late st Contact Info) Description 11/20/2005 Legacy Encounter - Labs HISTORICAL CONVERSION [place] [address], [place] [address] ProviderYoav MD [facility] [place] [address] Social History Tobacco Use Types Packs/Day Years [...] DPS CONVERSION - LAB RESULT SCAN PROCEDURE 11/20/2005 12:00 AM CDT documented in this encounter Results * DPS CONVERSION - LAB RESULT SCAN PROCEDURE (11/20/2005 12:00 AM CDT) Narrative 11/20/2005 12:00 AM CDT Ordered by an unspecified provider. Historical Provider LAB BLOOD ORDERAB LES documented in this encounter Visit Diagnoses Not on filedocumented in this encounter
--- OUTSIDE RECORDS SUMMARY | 2024-06-21 15:59 | XMS_ITS | Encounter Summary ---
Author Organization [facility] Address [address] [place] [phone] Phone Care Team Providers Care Classification Analyst Name Role Phone Unavailable Primary Care Provider Unavailabl e Encounter Details Date Type Department Care Team (Late st Contact Info) Description 04/29/2006 Legacy Encounter - Labs HISTORICAL CONVERSION [place] [phone], [place] [address] ProviderYoav MD [facility] [place] [address] Social History Tobacco Use Types Packs/Day Years [...] DPS CONVERSION - LAB RESULT SCAN PROCEDURE 04/29/2006 12:00 AM ELECTRODE CLEANING MACHINE OPERATOR DPS CONVERSION - LAB RESULT SCAN PROCEDURE 04/29/2006 12:00 AM ELECTRODE CLEANING MACHINE OPERATOR DPS CONVERSION - LAB RESULT SCAN PROCEDURE 04/29/2006 12:00 AM ELECTRODE CLEANING MACHINE OPERATOR documented in this encounter Results * DPS CONVERSION - LAB RESULT SCAN PROCEDURE (04/29/2006 12:00 AM ELECTRODE CLEANING MACHINE OPERATOR) Narrative 04/29/2006 12:00 AM ELECTRODE CLEANING MACHINE OPERATOR Ordered by an unspecified provider. Historical Provider LAB BLOOD ORDERAB LES * DPS CONVERSION - LAB RESULT SCAN PROCEDURE (04/29/2006 12:00 AM ELECTRODE CLEANING MACHINE OPERATOR) Narrative 04/29/2006 12:00 AM ELECTRODE CLEANING MACHINE OPERATOR Ordered by an unspecified provider. Historical Provider LAB BLOOD ORDERAB LES * DPS CONVERSION - LAB RESULT SCAN PROCEDURE (04/29/2006 12:00 AM ELECTRODE CLEANING MACHINE OPERATOR) Narrative 04/29/2006 12:00 AM ELECTRODE CLEANING MACHINE OPERATOR Ordered by an unspecified provider. Historical Provider LAB BLOOD ORDERAB LES documented in this encounter Visit Diagnoses Not on filedocumented in this encounter
--- OUTSIDE RECORDS SUMMARY | 2024-06-21 15:59 | XMS_ITS | Encounter Summary ---
Author Organization [facility] Address [address] [place] [address] Phone Care Team Providers Care Commercial Engineer Name Role Phone Unavailable Primary Care Provider Unavailabl e Encounter Details Date Type Department Care Team (Late st Contact Info) Description 10/28/2005 Legacy Encounter - Labs HISTORICAL CONVERSION [place] [phone], [place] [address] ProviderYoav MD [facility] [place] [address] Social History Tobacco Use Types Packs/Day Years [...] DPS CONVERSION - LAB RESULT SCAN PROCEDURE 10/28/2005 12:00 AM CDT documented in this encounter Results * DPS CONVERSION - LAB RESULT SCAN PROCEDURE (10/28/2005 12:00 AM CDT) Narrative 10/28/2005 12:00 AM CDT Ordered by an unspecified provider. Historical Provider LAB BLOOD ORDERAB LES documented in this encounter Visit Diagnoses Not on filedocumented in this encounter
--- OUTSIDE RECORDS SUMMARY | 2024-06-21 15:59 | XMS_ITS | Encounter Summary ---
Author Organization [facility] Address [address] [place] [phone] Phone Care Team Providers Care Dietary Cook Name Role Phone Unavailable Primary Care Provider Unavailabl e Encounter Details Date Type Department Care Team (Late st Contact Info) Description 07/28/2006 Legacy Encounter - Labs HISTORICAL CONVERSION [place] [phone], [place] [address] ProviderYoav MD [address] [place] [address] Social History Tobacco Use Types Packs/Day Years [...] DPS CONVERSION - LAB RESULT SCAN PROCEDURE 07/28/2006 12:00 AM PHOTOGRAPHER'S MODEL DPS CONVERSION - LAB RESULT SCAN PROCEDURE 07/28/2006 12:00 AM PHOTOGRAPHER'S MODEL documented in this encounter Results * DPS CONVERSION - LAB RESULT SCAN PROCEDURE (07/28/2006 12:00 AM PHOTOGRAPHER'S MODEL) Narrative 07/28/2006 12:00 AM PHOTOGRAPHER'S MODEL Ordered by an unspecified provider. Historical Provider LAB BLOOD ORDERAB LES * DPS CONVERSION - LAB RESULT SCAN PROCEDURE (07/28/2006 12:00 AM PHOTOGRAPHER'S MODEL) Narrative 07/28/2006 12:00 AM PHOTOGRAPHER'S MODEL Ordered by an unspecified provider. Historical Provider LAB BLOOD ORDERAB LES documented in this encounter Visit Diagnoses Not on filedocumented in this encounter
--- OUTSIDE RECORDS SUMMARY | 2024-06-21 15:59 | XMS_ITS | Encounter Summary ---
Author Organization [facility] Address [address] [place] [address] Phone Care Team Providers Care Grab Driver Name Role Phone Unavailable Primary Care Provider Unavailabl e Encounter Details Date Type Department Care Team (Late st Contact Info) Description 01/27/2006 Abstract HISTORICAL CONVERSION [place] [phone] ProviderYoav MD [facility] [place] [phone] Social History Tobacco Use Types Packs/Day Years [...]
--- OUTSIDE RECORDS SUMMARY | 2024-06-21 15:59 | XMS_ITS | Encounter Summary ---
Author Organization [facility] Address [address] [place] [phone] Phone Care Team Providers Care Mica Miner Name Role Phone Unavailable Primary Care Provider Unavailabl e Encounter Details Date Type Department Care Team (Late st Contact Info) Description 08/28/2006 Legacy Encounter - Labs HISTORICAL CONVERSION [place] [phone], [place] [address] ProviderYoav MD [facility] [place] [address] Social History Tobacco Use Types Packs/Day Years [...] DPS CONVERSION - LAB RESULT SCAN PROCEDURE 08/28/2006 12:00 AM CDT documented in this encounter Results * DPS CONVERSION - LAB RESULT SCAN PROCEDURE (08/28/2006 12:00 AM CDT) Narrative 08/28/2006 12:00 AM CDT Ordered by an unspecified provider. Historical Provider LAB BLOOD ORDERAB LES documented in this encounter Visit Diagnoses Not on filedocumented in this encounter
--- OUTSIDE RECORDS SUMMARY | 2024-06-21 15:59 | XMS_ITS | Patient Health Record ---
Author Organization [facility] Address [address] [place], [place] [address] Care Team Providers Care Business Services Associate Name Role Phone RAMON [place] Primary Care Provider MALICK STANTON Unavailable [phone] ALLERGIES Allergen (clinical drug ingredient) Drug/Non Drug Allergy documented on EMR Reaction Allergy Type Onset Date Status Substance with sulfonamide structure and antibacterial mechanism of action (substance) Sulfa Antibiotics stomach upset Drug Allergy Active REASON FOR REFERRAL Reason please order Cologua rd for pt Diagnosis 1 Encounter for screen ing for malignant neoplasm of colon (Z12.11) Referral Organization [facility] Referring Provider First Name MALICK Referring Provider Last Name MAXIMINO Referring Provider Speciality Preventive Medicine Referred Organization [facility] Referred Address [address] [place], [id number], Referred Provider Specialty Diagnostic L aboratory General Notes JONO FULTON 09/22 09:49:16 AM >Order for Cologuard and demographics faxed to [facility] [phone]. Referral Priority Routine MEDICATIONS Medication SIG (Take, Route, Frequency, Duration) Notes Start Date End Date Status Gabapentin 300 MG TAKE 1 CAPSULE BY MOUTH THREE TIMES DAILY for 30 Active Zoledronic Acid 5 MG/100ML as directed Intravenous Active Zinc 50 MG 1 tablet Orally Once a day Active traZODone HCl 150 MG TAKE 1 TABLET BY MOUTH ONCE DAILY AT BEDTIME for 90 Active tiZANidine HCl 2 MG 1 tablet as needed Orally Three times a day Active predniSONE 5 MG 1 tablet Orally Once a day Active Omeprazole 20 MG 1 capsule 30 minutes before morning meal Orally Once a day Active Naloxone HCl 4 MG/10ML as directed Injection Active Levothyroxine Sodium 125 MCG 1 tablet in the morning on an empty stomach Orally Once a day Active Leflunomide 20 MG 1 tablet Orally Once a day Active Hydroxychloroquine Sulfate 200 MG as directed Orally Active Metoprolol Succinate ER 50 MG 1 tablet Orally Once a day for 90 days 10/07/2023 Active Iron 325 (65 Fe) MG 1 tablet Orally Thre e times a Week Active Nystatin 313027 UNIT/GM 1 application Externally Twice a day for 14 days 10/07/2023 Active Flector 1.3 % 1 patch Externally Twice a day Active Vitamin B12 2500 mcg Active Vitamin D3 125 MCG (5000 UT) 1 capsule O rally Once a day Active Cymbalta 60 MG 1 capsule Orally Onc e a day for 90 days Active Cevimeline HCl 30 MG 1 capsule Orally Three times a day Active Suboxone 2-0.5 MG 1 film under the tongue and allow to dissolve Sublingual Once a day Active Biotin 10 MG 1 tablet Orally Once a day Active SOCIAL HISTORY Tobacco Use: Social History Observation Description Date Details (start date - stop date) Never Smoker NA - NA Sex Assigned At : Social History Observation Description Sex Assigned At Unknown Tobacco Use/Smoking Question Answer Notes Tobacco use: nonsmoker Section Notes: Lives in [place], [place] alone . Patient is diabled. Lives in [place] alone . Patient is diabled. Lives in [place] alone . Patient is diabled. Lives in [place] alone . Patient is diabled. Lives in [place] alone . Patient is diabled. Lives in [place] alone . Patient is diabled. PROBLEMS Problem Type ICD Code Onset Dates Problem Status W/U Status Risk SNOMED Code Notes Problem Essential (primary) hypertension (I10) Active confirmed 48726451 Problem Other osteoporosis without current pathological fracture (M81.8) Active confirmed 17842971 Problem Proteinuria, unspecified (R80.9) Active confirmed 40993119 Problem Prediabetes (R73.03) Active confirmed 936260892 Problem Sjogren syndrome with inflammatory arthritis (M35.05) Active confirmed 18964592 Problem Iron deficiency anemia, unspecified iron deficiency anemia type (D50.9) Active confirmed 34554316 Problem Elevated high sensitivity C-reactive protein (R79.82) Active confirmed 590441262390728 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 38687447 Problem Obesity (BMI 30-39.9) (E66.9) Active confirmed 061369832 Problem Lupus (M32.9) Active confirmed 15765659 3 Problem Psoriatic arthritis (L40.50) Active confirmed 910465117 Problem Uncomplicated opioid dependence (F11.20) Active confirmed 12864326 VITAL SIGNS Heart Rate 81 /min 10/07/2023 Height-cm 163.83 cm 10/07/2023 Oximetry 97 % 10/07/2023 Blood pressure diastolic 82 mm Hg 10/07/2023 Weight-kg 88 kg 10/07/2023 Height 64.5 in 10/07/2023 Blood pressure systolic 146 mm Hg 10/07/2023 Weight 194.0 lbs 10/07/2023 BMI 32.78 kg/m2 10/07/2023 Encounters Encounter Location Date Provider Diagnosis [address] [id number] 08/05/[address] [id number] 10/07/2023 [facility] Encounter for genera l adult medical examination with abnormal findings Z00.01 ; Psoriatic arthritis L40.50 ; Encounter for screening for malignant neoplasm of colon Z12.11 ; Encounter for screening mammogram for malignant neoplasm of breast Z12.31 ; Screening for depression Z13.31 ; Screening for substance abuse Z13.89 ; Essential (primary) hypertension I10 ; Philipp's disease E06.3 ; Lupus M32.9 ; Sjogren syndrome with inflammatory arthritis M35.05 ; Proteinuria, unspecified R80.9 ; Obesity (BMI 30-39.9) E66.9 ; Other osteoporosis without current pathological fracture M81.8 ; Iron deficiency anemia, unspecified iron deficiency anemia type D50.9 ; Prediabetes R73.03 ; Uncomplicated opioid dependence F11.20 ; Elevated high sensitivity C-reactive protein R79.82 and Beena infection B37.[address] [id number] 09/04/[address] [id number] 09/14/[address] [id number] 10/02/[address] [id number] 10/05/2023 [facility] Encounter Date Diagnosis Assessment Notes Treatment Notes Treatment Clinical Notes Section Notes 10/07/2023 Encounter for general adult medical examination with abnormal findings (ICD-10 - Z00.01) 10/07/2023 Psoriatic arthritis (ICD-10 - L40.50) Pt sees rheumatology treating her lupus, psoriatic arthritis and Sjogrens Would like improved pain control Monitor inflammatory markers 10/07/2023 Encounter for screening for malignant neoplasm of colon (ICD-10 - Z12.11) Pt agrees to cologuard Has never had colonoscopy 10/07/2023 Encounter for screening mammogram for malignant neoplasm of breast (ICD-10 - Z12.31) Just had last month 10/07/2023 Screening for depression (ICD-10 - Z13.31) Neg PHQ9 10/07/2023 Screening for substance abuse (ICD-10 - Z13.89) No ETOH or illicit drug use 10/07/2023 Essential (primary) hypertension (ICD-10 - I10) Continue medication as directed Low-salt diet Weight management Regular exercise Yearly microalbumin Will change to Metoprolol succinate 50mg daily 10/07/2023 Philipp's disease (ICD-10 - E06.3) Continue meds as indicated Check thyroid panel yearly, sooner as indicated 10/07/2023 Lupus (ICD-10 - M32.9) Sees rheumatology Meds as directed 10/07/2023 Sjogren syndrome with inflammatory arthritis (ICD-10 - M35.05) Pt sees rheumatology treating her lupus, psoriatic arthritis and Sjogrens Would like improved pain control monitor check inflammatory markers 10/07/2023 Proteinuria, unspecified (ICD-10 - R80.9) discussed need for tight BP control Will monitor at home, bring log Increase sodium 10/07/2023 Obesity (BMI 30-39.9) (ICD-10 - E66.9) May consider Wegovy at future visits after pt stabalized with rheumatology Referral to marketing services coordinator as well 10/07/2023 Other osteoporosis without current pathological fracture (ICD-10 - M81.8) Monitored by rheum May start new med per pt Continue with exercise to improve bone health 10/07/2023 Iron deficiency anemia, unspecified iron deficiency anemia type (ICD-10 - D50.9) increased iron to BID with Vit C previously Will continue to monitor Copy to take to hematology 10/07/2023 Prediabetes (ICD-10 - R73.03) Discussed dietary intake Handouts low carb, low inflammatory diet Int fasting 10/07/2023 Uncomplicated opioid dependence (ICD-10 - F11.20) Very stable pain control with suboxone through clinic May consider increasing gabapentin as she has bilat pedal neuropathic pain 10/07/2023 Elevated high sensitivity C-reactive protein (ICD-10 - R79.82) Discussed int fasting Also having flare of arthritis Will continue to monitor 10/07/2023 Beena infection (ICD-10 - B37.9) Discussed keeping areas clean and dry Will prescribe Nystatin powder Monitor for any secondary infections PLAN OF TREATMENT Future Test Test Name Order Date LIPID PANEL, STANDARD (7600) 04/07/2023 COMPREHENSIVE METABOLIC PANEL (35097) CBC (H/H, RBC, INDICES, WBC, PLT) (1759) 04/07/2023 CARDIO IQ(R) HS CRP (57613) 04/07/2023 HEMOGLOBIN A1c (496) 04/07/2023 INSULIN (561) 04/07/2023 Insurance Providers Payer Name Payer Address Payer Phone Subscriber Number Group Number Insured Name Patient Relationship to Insured Coverage Start Date Coverage End Date [facility] Medicare Advant[employer] e [address] [address] [place], [place] [phone] [id number] CHINTAN FAN Self - patient is the insured [employer] [address] [place] [address] [phone] [id number] CHINTAN FAN Self - patient is the insured MEDICAL (GENERAL) HISTORY Medical History History ICD Code Lupus Psoriatic Arthritis Philipp's Disease Sjogren's Syndrome Hypertension Chicken Pox Shingles Surgical History Surgery Date(Month/Year) Bi lateral ankle surgery 2018 Tonsillectomy [place] Teeth removal Hospitalization History Reason Date(Month/Year) B-lateral ankle surgery 2018
--- OUTSIDE RECORDS SUMMARY | 2024-06-21 15:59 | XMS_ITS ---
Author Organization [facility] Address [address] [place], [place] [id number] Care Team Providers Care Chair Maker Name Role Phone RAMON GA Primary Care Provider MALICK STANTON Unavailable [phone] ALLERGIES Allergen (clinical drug ingredient) Drug/Non Drug Allergy documented on EMR Reaction Allergy Type Onset Date Status Substance with sulfonamide structure and antibacterial mechanism of action (substance) Sulfa Antibiotics stomach upset Drug Allergy Active REASON FOR REFERRAL Reason please order Cologua rd for pt Diagnosis 1 Encounter for screen ing for malignant neoplasm of colon (Z12.11) [facility] Referring Provider First Name MALICK Referring Provider Last Name MAXIMINO Referring Provider Speciality Preventive Medicine [facility] Referred Address [address], [id number], Referred Provider Specialty Diagnostic L aboratory General Notes JONO FULTON 09/22 09:49:16 AM >Order for Cologuard and demographics faxed to [facility] [phone]. Referral Priority Routine REASON FOR VISIT Annual CPE, EKG MEDICATIONS Medication SIG (Take, Route, Frequency, Duration) Notes Start Date End Date Status traZODone HCl 150 MG 1 tablet at bedtime Orally Once a day for 90 days Active Cymbalta 60 MG 1 capsule Orally Onc e a day for 90 days Active Biotin 10 MG 1 tablet Orally Once a day Active Gabapentin 300 MG 1 capsule Orally three times a day for 30 days 09/04/2023 Active Nystatin 952023 UNIT/GM 1 application Externally Twice a day for 14 days 10/07/2023 Active Vitamin B12 2500 mcg Active Vitamin D3 125 MCG (5000 UT) 1 capsule O rally Once a day Active Cevimeline HCl 30 MG 1 capsule Orally Three times a day Active Suboxone 2-0.5 MG 1 film under the tongue and allow to dissolve Sublingual Once a day Active Hydroxychloroquine Sulfate 200 MG as directed Orally Active Metoprolol Succinate ER 50 MG 1 tablet Orally Once a day for 90 days 10/07/2023 Active Iron 325 (65 Fe) MG 1 tablet Orally Thre e times a Week Active Flector 1.3 % 1 patch Externally Twice a day Active Omeprazole 20 MG 1 capsule 30 minutes before morning meal Orally Once a day Active Naloxone HCl 4 MG/10ML as directed Injection Active Levothyroxine Sodium 125 MCG 1 tablet in the morning on an empty stomach Orally Once a day Active Leflunomide 20 MG 1 tablet Orally Once a day Active predniSONE 5 MG 1 tablet Orally Once a day Active Zoledronic Acid 5 MG/100ML as directed Intravenous Active Zinc 50 MG 1 tablet Orally Once a day Active tiZANidine HCl 2 MG 1 tablet as needed Orally Three times a day Active SOCIAL HISTORY Tobacco Use: Social History Observation Description Date Details (start date - stop date) Never Smoker NA - NA Sex Assigned At : Social History Observation Description Sex Assigned At Unknown Tobacco Use/Smoking Question Answer Notes Tobacco use: nonsmoker Section Notes: Lives in [place], [place] alone . Patient is diabled. VITAL SIGNS Blood pressure systolic 146 mm Hg 10/07/19 24 Blood pressure diastolic 82 mm Hg 024 Heart Rate 81 /min 10/07/2023 Height 64.5 in 10/07/2023 Weight 194.0 lbs 10/07/2023 BMI 32.78 kg/m2 10/07/2023 Oximetry 97 % 10/07/2023 Height-cm 163.83 cm 10/07/2023 Weight-kg 88 kg 10/07/2023 Encounters Encounter Location Date Provider Diagnosis [address] [id number] 10/07/2023 MALICK STANTON Encounter for genera l adult medical examination [...] C-reactive protein R79.82 and Beena infection B37.9 ASSESSMENTS Encounter Date Diagnosis Assessment Notes Treatment [...] after pt stabalized with rheumatology Referral to planned giving officer as well 10/07/2023 Other osteoporosis without current [...] for any secondary infections PLAN OF TREATMENT Medication Medication Name Sig Start Date Stop Date Notes Cymbalta 60 MG 1 capsule Orally Onc e a day for 90 days Nystatin 127832 UNIT/GM 1 application Ex ternally Twice a day for 14 days 10/07/2023 Metoprolol Succinate 50 MG 1 capsule Orally Once a day Metoprolol Succinate ER 50 MG 1 tablet O rally Once a day for 90 days 10/07/2023 Treatment Notes Assessment Notes Psoriatic arthritis Pt sees rheumatology treating her lupus, psoriatic arthritis and Sjogrens Would like improved pain control Monitor inflammatory markers Encounter for screening for malignant neoplasm of colon Pt agrees to anderson Has never had colonoscopy Encounter for screening mamm ogram for malignant neoplasm of breast Just had last month Screening for depression Neg PHQ9 Screening for substance abuse No ETOH or illicit drug use Essential (primary) hypertension Continue medication as directed Low-salt diet Weight management Regular exercise Yearly microalbumin Will change to Metoprolol succinate 50mg daily Philipp's disease Continue meds as indicated Check thyroid panel yearly, sooner as indicated Lupus Sees rheumatology Meds as directed Sjogren syndrome with inflam matory arthritis Pt sees rheumatology treating her lupus, psoriatic arthritis and Sjogrens Would like improved pain control monitor check inflammatory markers Proteinuria, unspecified discussed need for tight BP control Will monitor at home, bring log Increase sodium Obesity (BMI 30-39.9) May consider Wegovy at future visits after pt stabalized with rheumatology Referral to planned giving officer as well Other osteoporosis without c urrent pathological fracture Monitored by rheum May start new med per pt Continue with exercise to improve bone health Iron deficiency anemia, unsp ecified iron deficiency anemia type increased iron to BID with Vit C previously Will continue to monitor Copy to take to hematology Prediabetes Discussed dietary intake Handouts low carb, low inflammatory diet Int fasting Uncomplicated opioid dependence Very stable pain control with suboxone through clinic May consider increasing gabapentin as she has bilat pedal neuropathic pain Elevated high sensitivity C- reactive protein Discussed int fasting Also having flare of arthritis Will continue to monitor Beena infection Discussed keeping areas clean and dry Will prescribe Nystatin powder Monitor for any secondary infections Referrals Referral Date Details please order Grace fregoso for pt , [address] [place] [address], [place], [phone], @[employer], Next Appt Details Follow Up: 3 Months, Reason: with repeat labs Progress Notes * BLANCA FANALEJANDROOB: 5 (57 yo F)Acc No.[id number]:10/07/2023 Progress Note Patient:??FABIANA FAN Provider:??MALICK STANTON NP :1965?Age:57 Y?Sex:Fe male Date:10/07/2023 Phone: Address:[address] [place] [address] [address], [address], [place], [place] Pcp:RAMON GA Subjective: * Chief Complaints: * ?Annual CPE, EKG * HPI: ?Patient Care Team:?Policy Director:??Dr. Echeverria, Sherif Rheum , Dr. Echeverria, Sherif Rheum.? Providers/Specialists: Hematology: In [place]. ?Visit info:? Fabiana presents today for her annual physical exam. ?She notes she's been out of her Metoprolol x 3 days - due to Rx questions/coverage of dosing. ?Her current script says 25mg BID. Recent fill for Metoprolol Succinate Sprinkle 50mg 1/d was also not covered. ?-Pt still seeing PSS for injections for her chronic back pain that only works x 2 weeks ?-Considering surgery ?-Also concerned over fine rash under breasts over the last 2 weeks. * ROS:?General / Constitutional:?Patient denies??fatigue, headache, lightheadedness, weakness.?Ophthalmologic:?Patient denies??blurry vision, change in vision, eye pain.?ENT:?Patient denies??decreased hearing, difficulty in swallowing, dry mouth, ear pain, sore throat.?Endocrine:?Patient denies??excessive weight gain or loss.?Respiratory:?Patient denies??chest pain, cough, shortness of breath.?Cardiovascular:?Patient denies??dizziness, irregular heartbeat, palpitations, weakness; swollen extremities.?Gastrointestinal:?Patient denies??abdominal pain, blood in stool, heartburn.?Genitourinary:?Patient denies??blood in the urine, difficulty urinating, frequent urination; irregular or heavy menses; excessive vaginal discharge.?Neurologic:?Patient denies??low back pain, tingling / numbness, tremor.?Psychiatric:?Patient denies??anxiety, depressed mood, difficulty sleeping, substance abuse.? * Medical History:?? * Quantitative Manager History:??Menstrual hist ory:??LMP:?? Has not had period in 20 years,?Age of Menarche:??14.??Last pap smear date??15 years - normalAppt. 12/2023 for [facility] @ [facility].??Last mammogram date??08/2023 @ [facility].?? * OB History:?? Histo ry:??Total pregnancies:??0.?? * Surgical History:??Bi latera l ankle surgery 2018Tonsillectomy [place] Teeth removal * Ocular Surgical History:?? * Hospitalization/Major Diagno stic Procedure:??B-lateral ankle surgery 2018 * Family History:??Father: dec eased, ALS.??Mother: alive, Hypertension.??Paternal Grandfather: , arthritis, Lupus.??Paternal Grandmother: , Unknown.??Maternal Grandfather: , Unknown.??Maternal Grandmother: , Unknown.??Sister: alive, Thyroid Disease.?? * Social History:?Tobacco Use:??Tobacco Use/Smoking??Tobacco use:??nonsmoker.?Drugs/Alcohol:??Do you smoke marijuana?: Denies. Do you drink alcohol?: No. ?Lives in [place], [place] alone. Patient is diabled. * Medications:??TakingZoledron ic Acid 5 MG/100ML Solution as directed Intravenous Zinc 50 MG Tablet 1 tablet Orally Once a day tiZANidine HCl 2 MG Tablet 1 tablet as needed Orally Three times a day predniSONE 5 MG Tablet 1 tablet Orally Once a day Omeprazole 20 MG Capsule Delayed Release 1 capsule 30 minutes before morning meal Orally Once a day Naloxone HCl 4 MG/10ML Solution as directed Injection Levothyroxine Sodium 125 MCG Tablet 1 tablet in the morning on an empty stomach Orally Once a day Leflunomide 20 MG Tablet 1 tablet Orally Once a day Hydroxychloroquine Sulfate 200 MG Tablet as directed Orally Iron 325 (65 Fe) MG Tablet 1 tablet Orally Three times a Week Cymbalta 60 MG Capsule Delayed Release Particles 1 capsule Orally Once a day Flector 1.3 % Patch 1 patch Externally Twice a day Vitamin B12 , Notes to Pharmacist: 2500 mcgVitamin D3 125 MCG (5000 UT) Capsule 1 capsule Orally Once a day Cevimeline HCl 30 MG Capsule 1 capsule Orally Three times a day Suboxone 2-0.5 MG Film 1 film under the tongue and allow to dissolve Sublingual Once a day Biotin 10 MG Tablet 1 tablet Orally Once a day Gabapentin 300 MG Capsule 1 capsule Orally three times a day traZODone HCl 150 MG Tablet 1 tablet at bedtime Orally Once a day Taking Zoledronic Acid 5 MG/100ML Solution as directed Intravenous Taking Zinc 50 MG Tablet 1 tablet Orally Once a day Taking tiZANidine HCl 2 MG Tablet 1 tablet as needed Orally Three times a day Taking predniSONE 5 MG Tablet 1 tablet Orally Once a day Taking Omeprazole 20 MG Capsule Delayed Release 1 capsule 30 minutes before morning meal Orally Once a day Taking Naloxone HCl 4 MG/10ML Solution as directed Injection Taking Levothyroxine Sodium 125 MCG Tablet 1 tablet in the morning on an empty stomach Orally Once a day Taking Leflunomide 20 MG Tablet 1 tablet Orally Once a day Taking Hydroxychloroquine Sulfate 200 MG Tablet as directed Orally Taking Iron 325 (65 Fe) MG Tablet 1 tablet Orally Three times a Week Taking Cymbalta 60 MG Capsule Delayed Release Particles 1 capsule Orally Once a day Taking Flector 1.3 % Patch 1 patch Externally Twice a day Taking Vitamin B12 , Notes to Pharmacist: 2500 mcgTaking Vitamin D3 125 MCG (5000 UT) Capsule 1 capsule Orally Once a day Taking Cevimeline HCl 30 MG Capsule 1 capsule Orally Three times a day Taking Suboxone 2-0.5 MG Film 1 film under the tongue and allow to dissolve Sublingual Once a day Taking Biotin 10 MG Tablet 1 tablet Orally Once a day Taking Gabapentin 300 MG Capsule 1 capsule Orally three times a day Taking traZODone HCl 150 MG Tablet 1 tablet at bedtime Orally Once a day Not-TakingMetoprolol Succinate 50 MG Capsule ER 24 Hour Sprinkle 1 capsule Orally Once a day Not-Taking Metoprolol Succinate 50 MG Capsule ER 24 Hour Sprinkle 1 capsule Orally Once a day DiscontinuedMedrol 4 MG Tablet Therapy Pack as directed Orally daily take as packaged directedMedication List reviewed and reconciled with the patientDiscontinued Medrol 4 MG Tablet Therapy Pack as directed Orally daily take as packaged directedMedication List reviewed and reconciled with the patient * Allergies:??Sulfa Antibiotic s: stomach upset - Allergy Objective: * Vitals:??BP:146/82mm Hg, HR: 81/min, Oxygen sat %:97%, Wt:194.0lbs, Wt-k kg, Ht: 64.5 in, Ht-cm: 163.83 cm, BMI:32.78Index, Body Surface Area: 2. * Examination: ?General Examination: ?General appearance:??alert, pleasant, well-nourished and in no acute distress .?Head:??normocephalic, atraumatic .?Eyes:??normal, pupils equal, round, reactive to light and accommodation, extraocular movement intact (EOMI) .?Ears:??normal, auditory canal clear, tympanic membrane intact and clear, light reflex present .?Nose:??nares patent, septum intact, sinuses nontender bilaterally .?Oral cavity:??with good dentition, mucosa moist, tongue is midline .?Throat:??clear, pharynx normal, uvula midline .?Neck / thyroid:??carotid pulses are normal and without bruits, neck is supple, with full range of motion and no cervical lymphadenopathy .?Lymph nodes:??no axillary, supraclavicular or inguinal lymphadenopathy, no cervical lymphadenopathy .?Skin:??skin is warm and dry, with no rashes, good skin turgor and normal hair distribution; mild, slightly erythematous fungal rash uncer bilat breasts.?Heart:??regular rate and rhythm without murmurs, gallops, clicks or rubs .?Lungs:??clear to auscultation bilaterally, with good air movement and no rales, rhonchi or wheezes .?Chest:??chest wall with no costochondral junction tenderness, no rib deformity and normal shape and expansion .?Abdomen:??soft with good bowel sounds, nontender, and no masses or hepatosplenomegaly .?Back:??normal, without kyphoscoliosis or tenderness, full range of motion without difficulty .?Extremities:??normal extremity with no clubbing, cyanosis or edema, full range of motion, good capillary refill in nail beds .?Peripheral pulses:??normal 2+ arterial pulses .?Neurologic:??alert and oriented, cognitive exam grossly normal, cranial nerves 2-12 grossly intact, deep tendon reflexes 2+ symmetrical, gait normal, normal upper and lower extremity motor strength and function .?Psych:??cooperative with exam, maintains good eye contact, normal affect/mood .? 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 Plan: * Treatment: 2.??Encounter for general ad ult medical examination with abnormal findings?? Start Nystatin Powder, 704783 UNIT/GM, 1 application, Externally, Twice a day, 14 days, 1, Refills 1;??Refill Cymbalta Capsule Delayed Release Particles, 60 MG, 1 capsule, Orally, Once a day, 90 days, 90, Refills 3.? 3.??Encounter for screening for malignant neoplasm of colon?? Notes: Pt agrees to anderson Has never had colonoscopy? Referral To:Diagnostic Laboratory ?Reason:please order Anderson for pt 4.??Encounter for screening mammogram for malignant neoplasm of breast?? Notes: Just had last month? 5.??Screening for depression ?? Notes: Neg PHQ9? 6.??Screening for substance abuse?? Notes: No ETOH or illicit drug use? 7.??Essential (primary) hype rtension?? Stop Metoprolol Succinate Capsule ER 24 Hour Sprinkle, 50 MG, 1 capsule, Orally, Once a day;??Start Metoprolol Succinate ER Tablet Extended Release 24 Hour, 50 MG, 1 tablet, Orally, Once a day, 90 days, 90 Tablet, Refills 3.? Notes: Continue medication as directed Low-salt diet Weight management Regular exercise Yearly microalbumin Will change to Metoprolol succinate 50mg daily? 8.??Philipp's disease?? Notes: Continue meds as indicated Check thyroid panel yearly, sooner as indicated? 9.??Lupus?? Notes: Sees rheumatology Meds as directed? 10.??Sjogren syndrome with i nflammatory arthritis?? Notes: Pt sees rheumatology treating her lupus, psoriatic arthritis and Sjogrens Would like improved pain control monitor check inflammatory markers ? 11.??Proteinuria, unspecifie d?? Notes: discussed need for tight BP control Will monitor at home, bring log Increase sodium? 12.??Obesity (BMI 30-39.9)?? Notes: May consider Wegovy at future visits after pt stabalized with rheumatology Referral to planned giving officer as well? 13.??Other osteoporosis with out current pathological fracture?? Notes: Monitored by rheum May start new med per pt Continue with exercise to improve bone health? 14.??Iron deficiency anemia, unspecified iron deficiency anemia type?? Notes: increased iron to BID with Vit C previously Will continue to monitor Copy to take to hematology? 15.??Prediabetes?? Notes: Discussed dietary intake Handouts low carb, low inflammatory diet Int fasting ? 16.??Uncomplicated opioid de pendence?? Notes: Very stable pain control with suboxone through clinic May consider increasing gabapentin as she has bilat pedal neuropathic pain? 17.??Elevated high sensitivi ty C-reactive protein?? Notes: Discussed int fasting Also having flare of arthritis Will continue to monitor? 18.??Beena infection?? Notes: Discussed keeping areas clean and dry Will prescribe Nystatin powder Monitor for any secondary infections? * Procedure Codes:?? * Preventive Medicine:?Last CPE: Jan 2022 Colonoscopy: No; agrees to Cologuard Endoscopy: No DEXA: Yes, March 2022 - normal COVID Vac: Yes, 4 booster Yes, season Flu Vac: Yes, season Shingles Vac: Educated PV Vac: No Td/Tdap: Due Hep A/Hep B: [employer]over [employer] HAND: In december Mammogram: August 2023 Eye Exam: UTD Dental Exam: uTD Depression Scale: Negative Alcohol Misuse Screening: None Smoking Cessation: Nonsmoker Screened HTN, diabetes, BMI. * Follow Up:??3 Months (Reason : with repeat labs) Care Plan: * Problems:?? * Billing Information: * Visit Code:?? [id number] Preventive Care Est Pt. Age 40-64. * Procedure Codes:?? * Sign off status: Completed true * Provider:??MALICK STANTON NP Date:?? History and Physical Notes * HPI (History of Present Illness) Category Sub-Category Detail Notes Category Not es Patient Care Team Policy Director: Brnenon Odell Rheum , Sherif Odell Rheum Providers/Speciali sts: Hematology: In [place] Examination Category Sub-Category Detail Notes Category Not es General Examination General appearance: alert, p leasant, well-nourished and in no acute distress Head: normocephalic, atrau matic Eyes: normal, pupils equal , round, reactive to light and accommodation, extraocular movement intact (EOMI) Ears: normal, auditory can al clear, tympanic membrane intact and clear, light reflex present Nose: nares patent, septum intact, sinuses nontender bilaterally Throat: clear, pharynx yudi l, uvula midline Neck / thyroid: carotid pulses are n ormal and without bruits, neck is supple, with full range of motion and no cervical lymphadenopathy Heart: regular rate and rhy thm without murmurs, gallops, clicks or rubs Chest: chest wall with no c ostochondral junction tenderness, no rib deformity and normal shape and expansion Lungs: clear to auscultatio n bilaterally, with good air movement and no rales, rhonchi or wheezes Abdomen: soft with good bowel sounds, nontender, and no masses or hepatosplenomegaly Neurologic: alert and oriented, cognitive exam grossly normal, cranial nerves 2- 12 grossly intact, deep tendon reflexes 2+ symmetrical, gait normal, normal upper and lower extremity motor strength and function Skin: skin is warm and dry , with no rashes, good skin turgor and normal hair distribution; mild, slightly erythematous fungal rash uncer bilat breasts Extremities: normal extremity wit h no clubbing, cyanosis or edema, full range of motion, good capillary refill in nail beds Peripheral pulses: normal 2+ arterial p ulses Back: normal, without kyph oscoliosis or tenderness, full range of motion without difficulty Lymph nodes: no axillary, supracl avicular or inguinal lymphadenopathy, no cervical lymphadenopathy Psych: cooperative with exa m, maintains good eye contact, normal affect/mood Oral cavity: with good dentition, mucosa moist, tongue is midline Consultation Request Notes Referral Date Referring Provider Referred Provider Not es 10/07/2023 MALICK STANTON , please vick Barron for pt
--- OUTSIDE RECORDS SUMMARY | 2024-06-21 15:59 | XMS_ITS | Encounter Summary ---
Author Organization [facility] Address [address] [place] [id number] Phone Care Team Providers Care Egyptologist Name Role Phone Unavailable Primary Care Provider Unavailabl e Encounter Details Date Type Department Care Team (Late st Contact Info) Description 09/18/2008 Legacy Encounter - Labs HISTORICAL CONVERSION [place] [id number], [place] [address] ProviderYoav MD [facility] [place] [address] Social History Tobacco Use Types Packs/Day Years [...] DPS CONVERSION - LAB RESULT SCAN PROCEDURE 09/18/2008 12:00 AM CDT documented in this encounter Results * DPS CONVERSION - LAB RESULT SCAN PROCEDURE (09/18/2008 12:00 AM CDT) Narrative 09/18/2008 12:00 AM CDT Ordered by an unspecified provider. Historical Provider LAB BLOOD ORDERAB LES documented in this encounter Visit Diagnoses Not on filedocumented in this encounter
--- OUTSIDE RECORDS SUMMARY | 2024-06-21 15:59 | XMS_ITS | Encounter Summary ---
Author Organization [facility] Address [address] [place] [address] Phone Care Team Providers Care Anodic Operator Name Role Phone Unavailable Primary Care Provider Unavailabl e Encounter Details Date Type Department Care Team (Late st Contact Info) Description 03/26/2009 Abstract HISTORICAL CONVERSION [place] [id number] ProviderYoav MD [facility] [place] [id number] Social History Tobacco Use Types Packs/Day Years [...]
[2024-06-21 16:12] LABS: Erythrocyte Sedimentation Rate 9 MM/HR (0-20)
== END 2024-06-21 14:57 | disposition home or self-care (01) ==
LOC: HO.LAB 14:56
PROVIDERS: PCP Nurse Practitioner Family; Visit Provider Student in an Organized Health Care Education/Training Program
DX: L40.50 Arthropathic psoriasis, unspecified (principal); Z79.899 Other long term (current) drug therapy
CPT/HCPCS: 36415; 80053; 85025; 85652; 86140

== ENCOUNTER 2024-06-23 12:34 | Outpatient (AMB) | payer MEDICARE, MEDICAID, SELFPAY ==
--- NOTE | 2024-06-23 12:41 | MHC.OFFVIS ---
Vital Signs 06/23/24 12:44 Height 5 ft 5 in Weight 193 lb 5.526 oz BMI 32.2 BP 130/70 Blood Pressure Location Rt brachial Position Sitting Respiration 16 Pulse 65 Pulse Source Pulse Oximeter Pulse Oximetry (%) 98 Oxygen Delivery Method Room Air Intake Visit Reasons: PSA Intake Note: Patient presents for PsA follow up. Allergies sulfa Allergy (Mild, Uncoded 04/08/24 16:15) Hives Medication List - Last Reconciled 06/23/24 by Sweetie Adams MD biotin 10 mg PO DAILY 30 days buprenorphine-naloxone 2-0.5 mg (Suboxone) 1 film sublingual TID cholecalciferol (vitamin D3) (Vitamin D3) 125 mcg PO DAILY 90 days cyanocobalamin (vitamin B-12) (Vitamin B-12) 2,500 mcg sublingual DAILY 30 days diclofenac epolamine 1.3% (Flector) 1 patch transdermal .qd 30 days duloxetine (Cymbalta) 60 mg PO DAILY 30 days ferrous sulfate 325 mg PO DAILY 30 days gabapentin 300 mg PO TID 30 days hydroxychloroquine 200 mg PO BID hydroxyzine HCl 25 mg PO BEDTIME PRN leflunomide 10 mg PO 2XW levothyroxine 137 mcg PO DAILY 30 days meloxicam 7.5 mg PO BID metoprolol succinate ER 25 mg PO BID 30 days omega 2-qyc-qgz-fish oil 200-300-1,000 mg 1 cap PO DAILY 30 days omeprazole 20 mg PO DAILY 90 days Taltz Autoinjector (ixekizumab) 80 mg subcut Q4W NS tizanidine 2 mg PO Q8H PRN 30 days trazodone 150 mg PO BEDTIME PRN HPI Comments Details: Patient is a 58-year-old female with depression/anxiety, 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 Samuels. At that time she remained on hydroxychloroquine, Taltz and Arava. She had recently increased her Arava from 10 mg twice a week to 10 mg daily (12/23/2023). Despite these medications she continued to have morning stiffness lasting 1-2 hours. Decision was made to switch Taltz to Cosentyx infusions. Started Consentyx infusions 03/2024. Has not noticed a difference so far No significant new psoriatic plaques Rheumatologic History: Initial history: This is a 56-year-old female with a past medical history of psoriatic spondylitis, Sjogren's who presents as a new patient. She recently moved from [facility]. 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 Afterwards patient had multiple symptoms including dry eyes and dry mouth, Raynaud's and low back pain as well as peripheral arthritis. She was on multiple DMARDs for her arthritis including Prednisone for about 10 years Could not tolerate methotrexate Humira was not effective Hydroxychloroquine throughout Remicade at 5 mgs/kg every 8 weeks started around 2015. Had stopped due her move and when it was restarted it was secondary non responsive. DC 12/14 ineffective. +ve infliximab antibody Enbrel 01/14 DC 02/14 due to rash Taltz 08/2023 Unclear when Arava was started. But she only takes 10 mg twice a week, higher doses cause diarrhea She was started on Remicade 3-4 years ago 5 mg/kg every 8 weeks with significant improvement in her overall symptoms especially her back pain. Patient's last dose of Remicade was in November of 2021. Patient states that feels significant worsening of her overall joint pain especially her back now that she has not received Remicade for 8 months. Continues to have dry eyes and dry mouth. Uses Restasis regularly. Uses Salagen twice daily for dry mouth without significant relief. Continues to use Biotene mouthwash and Biotene toothpaste. Osteoporosis: Bilateral ankle fracture while walking down the stairs. Around 10 years of chronic corticosteroid exposure DEXA 12/2018? L-spine T-score -1.2? Mean proximal fever -0.5? Mean femur neck -0.9 DEXA 06/2022 L-spine T-score -0.4 Left femur neck-0.5 Left femur total -0.5 Took alendronate for about 6 months stopped due to GI intolerance Needle phobic could not use Tymlos Took 9 out of 12 doses of Evenity, last dose 11/2021 Current Rheumatology Medication(s): Cosentyx 200mg IV infusion monthly Leflunomide 10mg daily Hydroxychloroquine 200mg bid [facility] Medical History Chronic low back pain Discoid lupus Thyroid disease Raynaud disease Neuropathy Arthritis Anemia Philipp thyroiditis, fibrous variant Polyarticular arthritis Hypertension Osteopenia of both ankles Surgical History History of ankle surgery History of tonsillectomy History of knee replacement Family History Paternal Grandfather Rheumatoid arthritis Lupus Father ALS (amyotrophic lateral sclerosis) Mother Macular degeneration Social History Household Members: None Housing: Apartment Alcohol intake: never Patient Tobacco Use Status: Never used Tobacco e-Cigarette/Vaping Use: Never Used Second Hand Smoke Exposure: No service: No Current occupational status: disabled Cognitive needs: No Hearing needs: No Vision needs: No Review of Systems Const Details: Review of Systems Constitutional: Denies fever, chills, weight loss ENT: Denies vision changes, eye pain or eye redness, dental caries, dry mouth GI: Denies nausea, vomiting, diarrhea, abdominal pain, change in BM Pulm: Denies SOB, XAVIER, hemoptysis, wheezing Cards: Denies chest pain, palpitations Skin: Denies Raynaud's, rash, nail changes, photosensitivity, SECTION MAINTAINER: Denies headaches, weakness, paresthesias, recurrent falls MSK: as per HPI All other systems reviewed and are unremarkable except noted above Physical Exam Vital Signs: Last Vital Signs Pulse 65 06/23/24 12:44 Resp 16 06/23/24 12:44 BP 130/70 06/23/24 12:44 Pulse Ox 98 06/23/24 12:44 Oxygen Delivery Method Room Air 06/23/24 12:44 BMI result Body Mass Index 32.2 Vital signs reviewed Physical Examination CONSTITUITIONAL Patient alert and cooperative. Well appearing and in no apparent painful distress HEENT Conjunctiva and sclera clear. ?Pupils equal round and reactive to light. ?No lymphadenopathy. ? CHEST/RESPIRATORY SYSTEM Normal respiratory effort and able to speak in complete sentences. ?Clear to auscultation bilaterally. ?No crackles, rales, rhonchi, wheezes heard. CARDIAC SYSTEM Regular rate and rhythm. ?S1 and S2 heard no murmurs. ?Radial pulses intact bilaterally MSK Hands: ?Good manager cash strength bilaterally. No deformities noted. Tenderness to palpation of the MCPs bilaterally. Wrists: ?Full range of motion at the wrists without pain. ?No tenderness to palpation or synovitis noted to the wrists. Elbows: Full range of motion without pain. No tenderness, weakness, swelling, increased warmth or erythema. Shoulders: Full range of motion without pain. No tenderness, weakness, swelling, increased warmth or erythema. Hips: Full range of motion without pain. Hip bursa: No tenderness to palpation Knees: ?Full range of motion. ?No tenderness, swelling, increased warmth or erythema.?No effusion or crepitations Ankles: Full range of motion. ?No tenderness, swelling, increased warmth or erythema.? Feet: ?Negative squeeze test. ?No tenderness to palpation or swelling of the MTPs. Tender points:?No tenderness to palpation of the bilateral trapezius, supraspinatus, greater trochanters, anterior costochondral junctions, bilateral gluteal areas, bilateral suboccipital muscle insertions SKIN Skin intact without rashes. Results Reviewed Results Reviewed: Laboratory Tests 01/27/23 03/09/23 02/29/24 12:38 12:04 15:27 WBC RBC Hgb Hct Plt Count ESR Sodium Potassium Chloride Carbon Dioxide BUN Creatinine AST ALT Alkaline Phosphatase C-Reactive Protein 0.59 H Total Protein Albumin 25-OH Vitamin D Total 49.9 IgG Total 1207 IgA Total 191 IgM 183 SS-A/Ro Antibody >8.0 POS A Hepatitis A IgM Ab Nonreactive Hep Bs Antigen Negative Hep Bs Antibody NONREACTIVE Hep B Core Total Ab Nonreactive Hepatitis C Ab (EIA) Nonreactive TB Test (T-Spot) Com Negative 06/21/24 15:08 WBC 4.9 RBC 4.16 L Hgb 11.3 L Hct 36.2 L Plt Count 237 ESR 9 Sodium 143 Potassium 4.0 Chloride 106 Carbon Dioxide 29 BUN 17 H Creatinine 0.76 AST 21 ALT 14 Alkaline Phosphatase 55 C-Reactive Protein 0.34 Total Protein 7.1 Albumin 3.8 25-OH Vitamin D Total IgG Total IgA Total IgM SS-A/Ro Antibody Hepatitis A IgM Ab Hep Bs Antigen Hep Bs Antibody Hep B Core Total Ab Hepatitis C Ab (EIA) TB Test (T-Spot) Com Assessment & Plan Assessment & Plan (1) Psoriatic arthritis: Comment: Per patient onset around 2003 Prednisone for about 10 years Could not tolerate methotrexate Humira was not effective Hydroxychloroquine throughout Remicade at 5 mgs/kg every 8 weeks started around 2015. DC 12/14 ineffective. +ve infliximab antibody Enbrel 01/14 DC 02/14 due to rash Taltz 08/2023 Unclear when Arava was started. But she only takes 10 mg twice a week, higher doses cause diarrhea Code(s): L40.50 - Arthropathic psoriasis, unspecified Category: Medical Plan: #Psoriasis/Psoriatic Arthritis Patient is a 58-year-old female with psoriasis complicated by psoriatic arthritis. Currently there are no active psoriatic plaques however she continues to have prolonged morning stiffness and tenderness to palpation of the MCPs indicating that her psoriatic arthritis is still not under control. She increased her Arava from twice a week to every day over the past 3 months but has not notice any improvement in efficacy. Also recently started Cosentyx infusions and still has not notice much improvement as well. Given her medication history I think it is fair to stop Arava. We will continue Cosentyx for another 3 months to see if there will be improvement. Otezla is known to help both psoriasis and psoriatic arthritis and I think that would be a good option for her to add to her medications. She did mention that sometimes she has flares of her psoriasis and so this could also cover her in addition to the Cosentyx. Can consider golimumab infusions in the future if Cosentyx + Otezla does not improve her psoriasis and psoriatic arthritis. Plan - Stop leflunomide - Continue Cosentyx infusions - Start prior Auth for Otezla - RTC 3 months - Labs before visit: CBC, CMP, ESR, CRP, Hepatitis panel, T spot (2) Sjogren syndrome with keratoconjunctivitis: Comment: +++ SSA with sicca symptoms Code(s): M35.01 - Sjogren syndrome with keratoconjunctivitis Category: Medical Plan: #Sjogrens syndrome Patient with positive SSA and sicca symptoms. Currently managed with Plaquenil Sicca symptoms are stable. Plan - Plaquenil 200mg bid - Refresh eyedrops and Biotene mouthwash as needed (3) Osteoporosis with fracture: Comment: Bilateral ankle fracture while walking down the stairs. Around 10 years of chronic corticosteroid exposure DEXA 12/2018? L-spine T-score -1.2? Mean proximal fever -0.5? Mean femur neck -0.9 DEXA 06/2022 L-spine T-score -0.4 Left femur neck-0.5 Left femur total -0.5 Took alendronate for about 6 months stopped due to GI intolerance Needle phobic could not use Tymlos Took 9 out of 12 doses of Evenity, last dose 11/2021 Code(s): M80.80XA - Other osteoporosis with current pathological fracture, unspecified site, initial encounter for fracture Category: Medical Qualifiers: Osteoporosis type: age-related Site of pathological fracture: tibia and fibula Encounter type: initial encounter Laterality: unspecified laterality Qualified Code(s): M80.069A - Age-related osteoporosis with current pathological fracture, unspecified lower leg, initial encounter for fracture Plan: #Osteoporosis with history of pathological fracture Patient with osteoporosis and history of pathological fracture. Last DEXA 2022 was normal. Given her normal DEXA scan I think it is reasonable to monitor off bone production stimulator such as bisphosphonates and denosumab. Plan - Keep vitamin-D greater than 35 - Rpt DEXA 2024. Will order at next visit (4) Long-term use of hydroxychloroquine: Comment: Eye exam 11/2023 okay, 05/2024 okay Code(s): Z79.899 - Other computer terminal operator (current) drug therapy Category: Medical Plan: #Long-term Use of Hydroxychloroquine Discussed with patient the risks and benefits of hydroxychloroquine in managing the rheumatic condition Benefits include: - Reduced pain, reduce mortality, maintenance of remission and reduction of flares Risks include: - GI upset, skin hyperpigmentation, retinal toxicity (especially after more than 5 years of use), myopathy Advised yearly ophthalmology visits Last ophthalmology visit: 05/2024. Eye exam okay Patient is on trazodone as another QTC prolonged an agent. We will order EKG to check QTC Plan I spent [35] minutes reviewing the record and labs, taking a history, examining the patient, discussing the treatment plan and documenting in the medical record Orders: Orders ECG 12 lead EKG Today R94.31 - Abnormal electrocardiogram [ECG] [EKG] Complete Blood Count Auto Diff 3 Months L40.50 - Arthropathic psoriasis, unspecified, Z79.60 - [facility] (current) use of unspecified immunomodulators and immunosuppressants T Spot TB 3 Months L40.50 - Arthropathic psoriasis, unspecified, Z79.60 - termite control representative (current) use of unspecified immunomodulators and immunosuppressants Comprehensive Met. Panel 3 Months L40.50 - Arthropathic psoriasis, unspecified, Z79.60 - [facility] (current) use of unspecified immunomodulators and immunosuppressants Erythrocyte Sedimentation Rate 3 Months L40.50 - Arthropathic psoriasis, unspecified, Z79.60 - termite control representative (current) use of unspecified immunomodulators and immunosuppressants C Reactive Protein 3 Months L40.50 - Arthropathic psoriasis, unspecified, Z79.60 - termite control representative (current) use of unspecified immunomodulators and immunosuppressants Hepatitis A,B,C Profile 3 Months L40.50 - Arthropathic psoriasis, unspecified, Z79.60 - termite control representative (current) use of unspecified immunomodulators and immunosuppressants Vitamin D 25-OH Total 3 Months E55.9 - Vitamin D deficiency, unspecified, L40.50 - Arthropathic psoriasis, unspecified, Z79.60 - termite control representative (current) use of unspecified immunomodulators and immunosuppressants Medications: New apremilast (Otezla Starter) orally; Initial: 10 mg in the morning on day 1. Day 2: 10 mg twice daily; Day 3: 10 mg in the morning and 20 mg in the evening; Day 4: 20 mg twice daily; Day 5: 20 mg in the morning and 30 mg in the evening. Maintenance dose: 30 mg twice daily starting on day 6. 55 ea 0RF L40.50 - Arthropathic psoriasis, unspecified, L40.9 - Psoriasis, unspecified lidocaine 5% leave on most painful area for up to 12 hrs 2 patches topical DAILY 30 ea 4RF G89.29 - Other chronic pain, M54.50 - Low back pain, unspecified apremilast 30 mg PO BID 180 tabs 1RF L40.50 - Arthropathic psoriasis, unspecified, L40.9 - Psoriasis, unspecified Refilled hydroxychloroquine 200 mg PO BID 180 tabs 1RF Discontinued hydroxyzine HCl Discontinued Reason: Doctor's Order 25 mg PO BEDTIME PRN 6 tabs 0RF sleep, withdrawals leflunomide Discontinued Reason: Doctor's Order 10 mg PO 2XW 25 tabs 0RF Coding Level of Care Code Est Pt Level 4 (97240) Complex EM visit Add On G2211 Diagnoses Psoriatic arthritis L40.50 Sjogren syndrome with keratoconjunctivitis M35.01 Pathological fracture of both tibia and fibula due to age-related osteoporosis, unspecified laterality, initial encounter M80.069A Osteoporosis type: age-related Site of pathological fracture: tibia and fibula Encounter type: initial encounter Laterality: unspecified laterality Long-term use of hydroxychloroquine Z79.899
[2024-06-23 12:44] VITALS: BP 130/70; PULSE 65; RESP 16; O2SAT 98; BMI 32.2
--- OUTSIDE RECORDS SUMMARY | 2024-06-23 16:23 | XMS_ITS | Encounter Summary ---
Author Organization [facility] Address [address] [place] [phone] Phone Care Team Providers Care Auditor/Quality Name Role Phone Unavailable Primary Care Provider Unavailabl e Encounter Details Date Type Department Care Team (Late st Contact Info) Description 09/01/2012 Legacy Encounter - Labs HISTORICAL CONVERSION [place] [phone], [place] [address] ProviderYoav MD [facility] [place] [address] Social History Tobacco Use Types Packs/Day Years [...]
--- OUTSIDE RECORDS SUMMARY | 2024-06-23 16:23 | XMS_ITS | Clinical Summary ---
Author Organization [facility] Address [address] [place] [address] Care Team Providers Care Nanoelectronics Engineer Name Role Phone Pcp, No Primary Care [...] Description 05/27/2024 2:40 PM EST Office Visit [facility] [address] [phone] Alok Pederson MD Devitt, Precious Lopez, BUSINESS DATABASE ANALYST Acute cystitis with hematuria (Primary Dx) 05/27/2024 [...] (05/27/2024 3:10 PM EST) Culture SEE NOTE(A) [employer] [employer] Comment: ??CULTURE, URINE, ROUTINE ?Micro Number: ?[id number] ??Test Status: ? Final ??Specimen Source: ?? [...] Carrasco APRN MICROBIOLOGY - GENER AL ORDERABLES [employer] [address] [place] [phone] * (ABNORMAL) POCT Urinalysis Dipstick, Automated (05/27/2024 [...] Leukocyte Esterase, UA Trace(A) Negative Lot Number [id number] Builder Operator Pass Pass Urine 05/27/2024 3:07 PM EST Precious Carrasco APRN POINT OF CARE TEST O RDERABLES from Last 3 Months Care Teams Nanoelectronics Engineer Relationship Specialty Start Date End Date Pcp, No PCP - General General Medicine 05/27/24
--- OUTSIDE RECORDS SUMMARY | 2024-06-23 16:23 | XMS_ITS | Encounter Summary ---
Author Organization [facility] Address [address] [place] [phone] Phone Care Team Providers Care Sports Broadcasting Internship Name Role Phone Unavailable Primary Care Provider Unavailabl e Encounter Details Date Type Department Care Team (Late st Contact Info) Description 09/13/2012 Legacy Encounter - Labs HISTORICAL CONVERSION [place] [phone], [place] [address] ProviderYoav MD [facility] [place] [address] Social History Tobacco Use Types Packs/Day Years [...]
--- OUTSIDE RECORDS SUMMARY | 2024-06-23 16:23 | XMS_ITS | Encounter Summary ---
Author Organization [facility] Address [address] [place] [phone] Care Team Providers Care Ceramic Artist Name Role Phone Pcp, No Primary Care Provider Unavailabl e Reason for Visit * Reason Comments Urinary Tract Infection Encounter Details Date Type Department Care Team (Late st Contact Info) Description 05/27/2024 2:40 PM EST Office Visit [facility] [address] [phone] Alok Pederson MD [address] [place], [place] [id number] Precious Carrasco APRN [address] [place] [address] Acute cystitis with hematuria (Primary Dx) Social [...] (05/27/2024 3:10 PM EST) Culture SEE NOTE(A) [employer] Comment: ??CULTURE, URINE, ROUTINE ?Micro Number: ?[id number] ??Test Status: ? Final ??Specimen Source: ?? [...] Carrasco APRN MICROBIOLOGY - GENER AL ORDERABLES [employer] [address] [place] [phone] * (ABNORMAL) POCT Urinalysis Dipstick, Automated (05/27/2024 [...] Leukocyte Esterase, UA Trace(A) Negative Lot Number [id number] Gravity Prospecting Observer Helper Pass Pass Urine 05/27/2024 3:07 PM EST Precious Carrasco APRN POINT OF CARE TEST O RDERABLES documented in this encounter Visit Diagnoses Diagnosis Acute cystitis with hematuria- Primary documented in this encounter Care Teams Ceramic Artist Relationship Specialty Start Date End Date Pcp, No PCP - General General Medicine 05/27/24 documented as of this encounter
--- OUTSIDE RECORDS SUMMARY | 2024-06-23 16:23 | XMS_ITS | Encounter Summary ---
Author Organization [facility] Address [address] [place] [address] Phone Care Team Providers Care Toddler Caregiver Name Role Phone Unavailable Primary Care Provider Unavailabl e Encounter Details Date Type Department Care Team (Late st Contact Info) Description 06/11/2011 Legacy Encounter - Labs HISTORICAL CONVERSION [place] [address], [place] [address] ProviderYoav MD [facility] [place] [phone] Social History Tobacco Use Types Packs/Day Years [...] LAB RESULT SCAN PROCEDURE 06/11/2011 12:00 AM COMIC BOOK DESIGNER documented in this encounter Results * DPS CONVERSION - LAB RESULT SCAN PROCEDURE (06/11/2011 12:00 AM COMIC BOOK DESIGNER) Narrative 06/11/2011 12:00 AM COMIC BOOK DESIGNER Ordered by an unspecified provider. Historical Provider LAB BLOOD ORDERAB LES documented in this encounter Visit Diagnoses Not on filedocumented in this encounter
--- OUTSIDE RECORDS SUMMARY | 2024-06-23 16:23 | XMS_ITS | Encounter Summary ---
Author Organization [facility] Address [address] [place] [address] Phone Care Team Providers Care Shell Plater Name Role Phone Unavailable Primary Care Provider Unavailabl e Encounter Details Date Type Department Care Team (Late st Contact Info) Description 09/12/2010 Legacy Encounter - Labs HISTORICAL CONVERSION [place] [phone], [place] [address] ProviderYoav MD [address] [place] [phone] Social History Tobacco Use Types Packs/Day Years [...]
--- OUTSIDE RECORDS SUMMARY | 2024-06-23 16:23 | XMS_ITS | Encounter Summary ---
Author Organization [facility] Address [address] [place] [phone] Phone Care Team Providers Care Veneer Drier Feeder Name Role Phone Unavailable Primary Care Provider Unavailabl e Encounter Details Date Type Department Care Team (Late st Contact Info) Description 06/29/2012 Legacy Encounter - Labs HISTORICAL CONVERSION [place] [address] [phone], [place] [address] ProviderYoav MD [facility] [place] [address] Social History Tobacco Use Types Packs/Day Years [...] LAB RESULT SCAN PROCEDURE 06/29/2012 12:00 AM FLOOR ATTENDANT documented in this encounter Results * DPS CONVERSION - LAB RESULT SCAN PROCEDURE (06/29/2012 12:00 AM FLOOR ATTENDANT) Narrative 06/29/2012 12:00 AM FLOOR ATTENDANT Ordered by an unspecified provider. Historical Provider LAB BLOOD ORDERAB LES documented in this encounter Visit Diagnoses Not on filedocumented in this encounter
--- OUTSIDE RECORDS SUMMARY | 2024-06-23 16:23 | XMS_ITS | Encounter Summary ---
Author Organization [facility] Address [address] [place] [address] Phone Care Team Providers Care Chimney Repairer Name Role Phone Unavailable Primary Care Provider Unavailabl e Encounter Details Date Type Department Care Team (Late st Contact Info) Description 11/01/2013 Abstract HISTORICAL CONVERSION [place] [phone] ProviderYoav MD [facility] [place] [phone] Social History Tobacco Use Types Packs/Day Years [...]
--- OUTSIDE RECORDS SUMMARY | 2024-06-23 16:23 | XMS_ITS | Encounter Summary ---
Author Organization [facility] Address [address] [place] [phone] Phone Care Team Providers Care Computer Programming Professor Name Role Phone Unavailable Primary Care Provider Unavailabl e Encounter Details Date Type Department Care Team (Late st Contact Info) Description 10/22/2012 Legacy Encounter - Labs HISTORICAL CONVERSION [place] [phone], [place] [address] ProviderYoav MD [facility] [place] [address] Social History Tobacco Use Types Packs/Day Years [...]
--- OUTSIDE RECORDS SUMMARY | 2024-06-23 16:23 | XMS_ITS | Encounter Summary ---
Author Organization [facility] Address [address] [place] [address] Phone Care Team Providers Care Vallez Filter Operator Name Role Phone Unavailable Primary Care Provider Unavailabl e Encounter Details Date Type Department Care Team (Late st Contact Info) Description 03/29/2009 Legacy Encounter - Labs HISTORICAL CONVERSION [place] [phone], [place] [address] ProviderYoav MD [facility] [place] [address] Social History Tobacco Use Types Packs/Day Years [...] LAB RESULT SCAN PROCEDURE 03/30/2009 12:00 AM CORRUGATED BOX MACHINE OPERATOR DPS CONVERSION - LAB RESULT SCAN PROCEDURE 03/29/2009 12:00 AM CORRUGATED BOX MACHINE OPERATOR documented in this encounter Results * DPS CONVERSION - LAB RESULT SCAN PROCEDURE (03/30/2009 12:00 AM CORRUGATED BOX MACHINE OPERATOR) Narrative 03/30/2009 12:00 AM CORRUGATED BOX MACHINE OPERATOR Ordered by an unspecified provider. Historical Provider LAB BLOOD ORDERAB LES * DPS CONVERSION - LAB RESULT SCAN PROCEDURE (03/29/2009 12:00 AM CORRUGATED BOX MACHINE OPERATOR) Narrative 03/29/2009 12:00 AM CORRUGATED BOX MACHINE OPERATOR Ordered by an unspecified provider. Historical Provider LAB BLOOD ORDERAB LES documented in this encounter Visit Diagnoses Not on filedocumented in this encounter
--- OUTSIDE RECORDS SUMMARY | 2024-06-23 16:23 | XMS_ITS | Encounter Summary ---
Author Organization [facility] Address [address] [place] [address] Care Team Providers Care Preschool Teacher Name Role Phone Pcp, No Primary Care [...] on filedocumented in this encounter Care Teams Preschool Teacher Relationship Specialty Start Date End Date Pcp, No PCP - General General Medicine 05/27/24 documented as of this encounter
--- OUTSIDE RECORDS SUMMARY | 2024-06-23 16:23 | XMS_ITS | Encounter Summary ---
Author Organization [facility] Address [address] [place] [address] Phone Care Team Providers Care Pharmacovigilance Scientist Name Role Phone Unavailable Primary Care Provider Unavailabl e Encounter Details Date Type Department Care Team (Late st Contact Info) Description 06/18/2009 Legacy Encounter - Labs HISTORICAL CONVERSION [place] [phone], [place] [address] ProviderYoav MD [facility] [place] [phone] Social History Tobacco Use Types Packs/Day Years [...] LAB RESULT SCAN PROCEDURE 06/18/2009 12:00 AM SWING GRINDER documented in this encounter Results * DPS CONVERSION - LAB RESULT SCAN PROCEDURE (06/18/2009 12:00 AM SWING GRINDER) Narrative 06/18/2009 12:00 AM SWING GRINDER Ordered by an unspecified provider. Historical Provider LAB BLOOD ORDERAB LES documented in this encounter Visit Diagnoses Not on filedocumented in this encounter
--- OUTSIDE RECORDS SUMMARY | 2024-06-23 16:23 | XMS_ITS | Encounter Summary ---
Author Organization [facility] Address [address] [place] [address] Phone Care Team Providers Care Bank Note Designer Name Role Phone Unavailable Primary Care Provider Unavailabl e Encounter Details Date Type Department Care Team (Late st Contact Info) Description 11/19/2009 Legacy Encounter - Labs HISTORICAL CONVERSION [place] [phone], [place] [address] ProviderYoav MD [facility] [place] [address] Social History Tobacco Use Types Packs/Day Years [...]
--- OUTSIDE RECORDS SUMMARY | 2024-06-23 16:23 | XMS_ITS | Encounter Summary ---
Author Organization [facility] Address [address] [place] [address] Phone Care Team Providers Care Cone Worker Name Role Phone Unavailable Primary Care Provider Unavailabl e Encounter Details Date Type Department Care Team (Late st Contact Info) Description 01/20/2013 Legacy Encounter - Labs HISTORICAL CONVERSION [place] [address], [place] [address] ProviderYoav MD [facility] [place] [address] Social History Tobacco Use Types Packs/Day Years [...]
--- OUTSIDE RECORDS SUMMARY | 2024-06-23 16:23 | XMS_ITS | Encounter Summary ---
Author Organization [facility] Address [address] [place] [address] Phone Care Team Providers Care Sawmill Relief Worker Name Role Phone Unavailable Primary Care Provider Unavailabl e Encounter Details Date Type Department Care Team (Late st Contact Info) Description 12/24/2012 Legacy Encounter - Labs HISTORICAL CONVERSION [place] [phone], [place] [address] ProviderYoav MD [facility] [place] [address] Social History Tobacco Use Types Packs/Day Years [...]
--- OUTSIDE RECORDS SUMMARY | 2024-06-23 16:23 | XMS_ITS | Encounter Summary ---
Author Organization [facility] Address [address] [place] [address] Phone Care Team Providers Care Salesperson Hosiery Name Role Phone Unavailable Primary Care Provider Unavailabl e Encounter Details Date Type Department Care Team (Late st Contact Info) Description 08/07/2012 Legacy Encounter - Labs HISTORICAL CONVERSION [place] [phone], [place] [address] ProviderYoav MD [facility] [place] [address] Social History Tobacco Use Types Packs/Day Years [...]
--- OUTSIDE RECORDS SUMMARY | 2024-06-23 16:23 | XMS_ITS | Encounter Summary ---
Author Organization [facility] Address [address] [place] [address] Phone Care Team Providers Care Food Adviser Name Role Phone Unavailable Primary Care Provider Unavailabl e Encounter Details Date Type Department Care Team (Late st Contact Info) Description 07/06/2009 Abstract HISTORICAL CONVERSION [place] [phone] ProviderYoav MD [facility] [place] [phone] Social History Tobacco Use Types Packs/Day Years [...]
--- OUTSIDE RECORDS SUMMARY | 2024-06-23 16:23 | XMS_ITS | Encounter Summary ---
Author Organization [facility] Address [address] [place] [address] Phone Care Team Providers Care Automatic Centrifugal Station Operator Name Role Phone Unavailable Primary Care Provider Unavailabl e Encounter Details Date Type Department Care Team (Late st Contact Info) Description 06/06/2013 Abstract HISTORICAL CONVERSION [place] [phone] ProviderYoav MD [facility] [place] [phone] Social History Tobacco Use Types Packs/Day Years [...]
--- OUTSIDE RECORDS SUMMARY | 2024-06-23 16:23 | XMS_ITS | Encounter Summary ---
Author Organization [facility] Address [address] [place] [address] Phone Care Team Providers Care Grain Sacker Name Role Phone Unavailable Primary Care Provider Unavailabl e Encounter Details Date Type Department Care Team (Late st Contact Info) Description 10/29/2013 Legacy Encounter - Labs HISTORICAL CONVERSION [place] [phone], [place] [address] ProviderYoav MD [address] [place] [address] Social History Tobacco Use Types Packs/Day Years [...]
--- OUTSIDE RECORDS SUMMARY | 2024-06-23 16:24 | XMS_ITS | Encounter Summary ---
Author Organization [facility] Address [address] [place] [address] Phone Care Team Providers Care Operation Agent Name Role Phone Unavailable Primary Care Provider Unavailabl e Encounter Details Date Type Department Care Team (Late st Contact Info) Description 01/18/2014 Legacy Encounter - Labs HISTORICAL CONVERSION [place] [address], [place] [address] ProviderYoav MD [address] [place] [address] Social History Tobacco Use Types Packs/Day Years [...]
--- OUTSIDE RECORDS SUMMARY | 2024-06-23 16:24 | XMS_ITS | Encounter Summary ---
Author Organization [facility] Address [address] [place] [address] Phone Care Team Providers Care Grocery Store Bagger Name Role Phone Unavailable Primary Care Provider Unavailabl e Encounter Details Date Type Department Care Team (Late st Contact Info) Description 03/09/2014 Legacy Encounter - Labs HISTORICAL CONVERSION [place] [address], [place] [address] ProviderYoav MD [facility] [place] [address] Social History Tobacco Use Types Packs/Day Years [...]
--- OUTSIDE RECORDS SUMMARY | 2024-06-23 16:24 | XMS_ITS | Encounter Summary ---
Author Organization [facility] Address [address] [place] [address] Phone Care Team Providers Care Crane Operator Name Role Phone Unavailable Primary Care Provider Unavailabl e Encounter Details Date Type Department Care Team (Late st Contact Info) Description 06/14/2012 Legacy Encounter - Labs HISTORICAL CONVERSION [place] [phone], [place] [address] ProviderYoav MD [facility] [place] [phone] Social History Tobacco Use Types Packs/Day Years [...] LAB RESULT SCAN PROCEDURE 06/14/2012 12:00 AM CLIENT ARCHITECT documented in this encounter Results * DPS CONVERSION - LAB RESULT SCAN PROCEDURE (06/14/2012 12:00 AM CLIENT ARCHITECT) Narrative 06/14/2012 12:00 AM CLIENT ARCHITECT Ordered by an unspecified provider. Historical Provider LAB BLOOD ORDERAB LES documented in this encounter Visit Diagnoses Not on filedocumented in this encounter
--- OUTSIDE RECORDS SUMMARY | 2024-06-23 16:24 | XMS_ITS | Encounter Summary ---
Author Organization [facility] Address [address] [place] [address] Phone Care Team Providers Care Service Learning Coordinator Name Role Phone Unavailable Primary Care Provider Unavailabl e Encounter Details Date Type Department Care Team (Late st Contact Info) Description 03/27/2015 Clinical Support HISTORICAL [address] [address] ProviderYoav MD [facility] [place] [phone] Social History Tobacco Use Types Packs/Day Years [...]
--- OUTSIDE RECORDS SUMMARY | 2024-06-23 16:24 | XMS_ITS | Encounter Summary ---
Author Organization [facility] Address [address] [place] [address] Phone Care Team Providers Care Invas Tech Name Role Phone Unavailable Primary Care Provider Unavailabl e Encounter Details Date Type Department Care Team (Late st Contact Info) Description 03/13/2015 Legacy Encounter - Labs HISTORICAL CONVERSION [place] [address], [place] [address] ProviderYoav MD [facility] [place] [address] Social History Tobacco Use Types Packs/Day Years [...]
--- OUTSIDE RECORDS SUMMARY | 2024-06-23 16:24 | XMS_ITS | Clinical Summary ---
Author Organization [facility] Address [address] [place] [address] Phone Care Team Providers Care Teacher Of The Hearing Impaired Name Role Phone Unavailable Primary Care Provider [...] Active -Hx Entry 03/27/2015 Active HYDROcodone-acetami nophen (Randolph) 10-325 MG per tablet Randolph( 10-325MG Oral 1 as needed ) Active [...] Comments Blood Pressure 122/74 03/27/2015 12:01 AM PICK UP WORKER Pulse 80 03/27/2015 12:01 AM PICK UP WORKER Temperature - - Respiratory Rate - - Oxygen Saturation - - Inhaled Oxygen Concentration - - Weight 68.9 kg (152 lb) 03/27/2015 12:01 AM PICK UP WORKER Height 162.6 cm (5' 4 ) 03/27/2015 12:01 AM PICK UP WORKER Body Mass Index 26.09 03/27/2015 12:01 AM PICK UP WORKER Plan of Treatment Not on file
--- OUTSIDE RECORDS SUMMARY | 2024-06-23 16:24 | XMS_ITS | Encounter Summary ---
Author Organization [facility] Address [address] [place] [address] Phone Care Team Providers Care Heel Cover Softener Name Role Phone Unavailable Primary Care Provider Unavailabl e Encounter Details Date Type Department Care Team (Late st Contact Info) Description 08/18/2015 Legacy Encounter - Labs HISTORICAL CONVERSION [place] [phone], [place] [address] ProviderYoav MD [facility] [place] [address] Social History Tobacco Use Types Packs/Day Years [...]
--- OUTSIDE RECORDS SUMMARY | 2024-06-23 16:24 | XMS_ITS | Encounter Summary ---
Author Organization [facility] Address [address] [place] [address] Phone Care Team Providers Care Construction Specialist Name Role Phone Unavailable Primary Care Provider Unavailabl e Encounter Details Date Type Department Care Team (Late st Contact Info) Description 01/30/2006 Legacy Encounter - Labs HISTORICAL CONVERSION [place] [phone], [place] [address] ProviderYoav MD [facility] [place] [address] Social History Tobacco Use Types Packs/Day Years [...]
--- OUTSIDE RECORDS SUMMARY | 2024-06-23 16:24 | XMS_ITS | Encounter Summary ---
Author Organization [facility] Address [address] [place] [address] Phone Care Team Providers Care Publication Manager Name Role Phone Unavailable Primary Care Provider Unavailabl e Encounter Details Date Type Department Care Team (Late st Contact Info) Description 02/13/2014 Legacy Encounter - Labs HISTORICAL CONVERSION [place] [address], [place] [address] ProviderYoav MD [facility] [place] [address] Social History Tobacco Use Types Packs/Day Years [...]
--- OUTSIDE RECORDS SUMMARY | 2024-06-23 16:24 | XMS_ITS | Encounter Summary ---
Author Organization [facility] Address [address] [place] [address] Phone Care Team Providers Care Product Demonstrator Name Role Phone Unavailable Primary Care Provider Unavailabl e Encounter Details Date Type Department Care Team (Late st Contact Info) Description 07/15/2011 Legacy Encounter - Labs HISTORICAL CONVERSION [place] [phone], [place] [address] ProviderYoav MD [facility] [place] [phone] Social History Tobacco Use Types Packs/Day Years [...] LAB RESULT SCAN PROCEDURE 07/15/2011 12:00 AM SHOE STAMPER documented in this encounter Results * DPS CONVERSION - LAB RESULT SCAN PROCEDURE (07/15/2011 12:00 AM SHOE STAMPER) Narrative 07/15/2011 12:00 AM SHOE STAMPER Ordered by an unspecified provider. Historical Provider LAB BLOOD ORDERAB LES documented in this encounter Visit Diagnoses Not on filedocumented in this encounter
--- OUTSIDE RECORDS SUMMARY | 2024-06-23 16:24 | XMS_ITS ---
Author Organization [facility] Address [address] [place] [phone] Care Team Providers Care Leather Skinner Name Role Phone HARMEET RAMON Primary Care Provider [phone] [facility] MALICK STANTON Unavailable [phone] REASON FOR VISIT Refills MEDICATIONS Medication SIG (Take, Route, Frequency, Duration) Notes Start Date End Date Status Metoprolol Succinate 25 MG 1 capsule Ora lly twice a day for 30 days 10/02/2023 Active Encounters Encounter Location Date Provider Diagnosis [facility] [address] [place], [place] [phone] 10/02/2023 MALICK STANTON PLAN OF TREATMENT Medication Medication Name Sig Start Date Stop Date Notes Metoprolol Succinate 25 MG 1 capsule Ora lly twice a day for 30 days 10/02/2023 Metoprolol Succinate 25 MG 1 capsule Orally Once a day Progress Notes * BLANCA FANALEJANDROOB: 5 (57 yo F)Acc No.[id number]:10/02/2023 Patient:??CHINTAN FAN :1965?Age:57 Y?Sex:Fe male Phone: Address:[address] [place] [address], [address], [place] [address] * Refills?? Stop Metoprolol Succinate Capsule ER 24 Hour Sprinkle, 25 MG, Orally, 1 capsule, Once a day Start Metoprolol Succinate Capsule ER 24 Hour Sprinkle, 25 MG, Orally, 60 Capsule, 1 capsule, twice a day, 30 days * true * Date:??
--- OUTSIDE RECORDS SUMMARY | 2024-06-23 16:24 | XMS_ITS | Encounter Summary ---
Author Organization [facility] Address [address] [place] [address] Phone Care Team Providers Care Slps Name Role Phone Unavailable Primary Care Provider Unavailabl e Encounter Details Date Type Department Care Team (Late st Contact Info) Description 10/23/2009 Legacy Encounter - Labs HISTORICAL CONVERSION [place] [phone], [place] [address] ProviderYoav MD [facility] [place] [address] Social History Tobacco Use Types Packs/Day Years [...]
--- OUTSIDE RECORDS SUMMARY | 2024-06-23 16:24 | XMS_ITS | Encounter Summary ---
Author Organization [facility] Address [address] [place] [address] Phone Care Team Providers Care Crossing Watchman Name Role Phone Unavailable Primary Care Provider Unavailabl e Encounter Details Date Type Department Care Team (Late st Contact Info) Description 03/23/2014 Legacy Encounter - Labs HISTORICAL CONVERSION [place] [address], [place] [address] ProviderYoav MD [facility] [place] [address] Social History Tobacco Use Types Packs/Day Years [...]
--- OUTSIDE RECORDS SUMMARY | 2024-06-23 16:24 | XMS_ITS | Encounter Summary ---
Author Organization [facility] Address [address] [place] [address] Phone Care Team Providers Care Assembler Tractor Name Role Phone Unavailable Primary Care Provider Unavailabl e Encounter Details Date Type Department Care Team (Late st Contact Info) Description 01/27/2006 Abstract HISTORICAL CONVERSION [place] [phone] ProviderYoav MD [facility] [place]rea [place] [phone] Social History Tobacco Use Types Packs/Day Years [...]
--- OUTSIDE RECORDS SUMMARY | 2024-06-23 16:24 | XMS_ITS | Encounter Summary ---
Author Organization [facility] Address [address] [place] [address] Phone Care Team Providers Care Embedded Software Design Engineer Name Role Phone Unavailable Primary Care Provider Unavailabl e Encounter Details Date Type Department Care Team (Late st Contact Info) Description 08/28/2006 Legacy Encounter - Labs HISTORICAL CONVERSION [place] [phone], [place] [address] ProviderYoav MD [facility] [place] [address] Social History Tobacco Use Types Packs/Day Years [...]
--- OUTSIDE RECORDS SUMMARY | 2024-06-23 16:24 | XMS_ITS | Encounter Summary ---
Author Organization [facility] Address [address] [place] [address] Phone Care Team Providers Care Pressure Welder Name Role Phone Unavailable Primary Care Provider Unavailabl e Encounter Details Date Type Department Care Team (Late st Contact Info) Description 08/17/2015 Legacy Encounter - Labs HISTORICAL CONVERSION [place] [address], [place] [address] ProviderYoav MD [facility] [place] [address] Social History Tobacco Use Types Packs/Day Years [...]
--- OUTSIDE RECORDS SUMMARY | 2024-06-23 16:24 | XMS_ITS ---
Author Organization [facility] Address [address] [place] [phone] Care Team Providers Care Pipe Coremaker Name Role Phone HARMEETCHINORAMON Primary Care Provider [phone] MALICK FAULKNER Unavailable [phone] REASON FOR VISIT Rx Change MEDICATIONS Medication SIG (Take, Route, Frequency, Duration) Notes Start Date End Date Status Metoprolol Succinate 50 MG 1 capsule Ora lly Once a day for 90 days 10/06/2023 Active Encounters Encounter Location Date Provider Diagnosis [address] [phone] 10/05/2023 MALICK STANTON PLAN OF TREATMENT Medication Medication Name Sig Start Date Stop Date Notes Metoprolol Succinate 25 MG 1 capsule Orally twice a day Metoprolol Succinate 50 MG 1 capsule Ora lly Once a day for 90 days 10/06/2023 Progress Notes * BLANCA FANALEJANDROOB: 5 (57 yo F)Acc No.[id number]:10/05/2023 Patient:??CHINTAN FAN :1965?Age:57 Y?Sex:Fe male Phone: Address:[address] [place] [address], [address], [place] [address] * Refills?? Stop Metoprolol Succinate Capsule ER 24 Hour Sprinkle, 25 MG, Orally, 1 capsule, twice a day Start Metoprolol Succinate Capsule ER 24 Hour Sprinkle, 50 MG, Orally, 90 Capsule, 1 capsule, Once a day, 90 days, Refills=5 * true * Date:??
--- OUTSIDE RECORDS SUMMARY | 2024-06-23 16:24 | XMS_ITS | Encounter Summary ---
Author Organization [facility] Address [address] [place] [address] Phone Care Team Providers Care Preschool Program Director Name Role Phone Unavailable Primary Care Provider Unavailabl e Encounter Details Date Type Department Care Team (Late st Contact Info) Description 03/28/2015 Abstract HISTORICAL CONVERSION [place] [phone] ProviderYoav MD [facility] [place] [phone] Social History Tobacco Use Types Packs/Day Years [...]
--- OUTSIDE RECORDS SUMMARY | 2024-06-23 16:24 | XMS_ITS | Encounter Summary ---
Author Organization [facility] Address [address] [place] [address] Phone Care Team Providers Care Construction Pit Worker Name Role Phone Unavailable Primary Care Provider Unavailabl e Encounter Details Date Type Department Care Team (Late st Contact Info) Description 01/09/2014 Legacy Encounter - Labs HISTORICAL CONVERSION [place] [address], [place] [address] ProviderYoav MD [address] [place] [address] Social History Tobacco Use Types Packs/Day Years [...]
--- OUTSIDE RECORDS SUMMARY | 2024-06-23 16:24 | XMS_ITS | Encounter Summary ---
Author Organization [facility] Address [address] [place] [address] Phone Care Team Providers Care Commercial Lending Vice President Name Role Phone Unavailable Primary Care Provider Unavailabl e Encounter Details Date Type Department Care Team (Late st Contact Info) Description 03/01/2012 Legacy Encounter - Labs HISTORICAL CONVERSION [place] [address], [place] [address] ProviderYoav MD [facility] [place] [address] Social History Tobacco Use Types Packs/Day Years [...]
--- OUTSIDE RECORDS SUMMARY | 2024-06-23 16:25 | XMS_ITS | Encounter Summary ---
Author Organization [facility] Address [address] [place] [address] Phone Care Team Providers Care Technical Photographer Name Role Phone Unavailable Primary Care Provider Unavailabl e Encounter Details Date Type Department Care Team (Late st Contact Info) Description 10/05/2008 Legacy Encounter - Labs HISTORICAL CONVERSION [place] [address], [place] [address] ProviderYoav MD [facility] [place] [address] Social History Tobacco Use Types Packs/Day Years [...]
--- OUTSIDE RECORDS SUMMARY | 2024-06-23 16:25 | XMS_ITS | Encounter Summary ---
Author Organization [facility] Address [address] [place] [address] Phone Care Team Providers Care Hospital Director Name Role Phone Unavailable Primary Care Provider Unavailabl e Encounter Details Date Type Department Care Team (Late st Contact Info) Description 05/04/2006 Legacy Encounter - Labs HISTORICAL CONVERSION [place] [address], [place] [address] ProviderYoav MD [facility] [place] [address] Social History Tobacco Use Types Packs/Day Years [...] LAB RESULT SCAN PROCEDURE 05/04/2006 12:00 AM CONTRACT LEAD documented in this encounter Results * DPS CONVERSION - LAB RESULT SCAN PROCEDURE (05/04/2006 12:00 AM CONTRACT LEAD) Narrative 05/04/2006 12:00 AM CONTRACT LEAD Ordered by an unspecified provider. Historical Provider LAB BLOOD ORDERAB LES documented in this encounter Visit Diagnoses Not on filedocumented in this encounter
--- OUTSIDE RECORDS SUMMARY | 2024-06-23 16:25 | XMS_ITS | Patient Health Record ---
Author Organization [facility] Address [address], [place] [address] Care Team Providers Care Rn Production Name Role Phone RAMON [place] Primary Care Provider MALICK STANTON Unavailable [phone] ALLERGIES Allergen (clinical drug ingredient) Drug/Non Drug Allergy documented on EMR Reaction Allergy Type Onset Date Status Substance with sulfonamide structure and antibacterial mechanism of action (substance) Sulfa Antibiotics stomach upset Drug Allergy Active REASON FOR REFERRAL Reason please order Cologua rd for pt Diagnosis 1 Encounter for screen ing for malignant neoplasm of colon (Z12.11) Referral Organization [facility] Referring Provider First Name MALICK Referring Provider Last Name MAXIMINO Referring Provider Speciality Preventive Medicine Referred Organization [facility], [facility] Referred Address [address], [id number], Referred Provider Specialty Diagnostic L aboratory General Notes JONO FULTON 09/22 09:49:16 AM >Order for Cologuard and demographics faxed to [facility] [phone]. Referral Priority Routine MEDICATIONS Medication SIG (Take, [...] Thre e times a Week Active Nystatin 297158 UNIT/GM 1 application Externally Twice a day [...] Tobacco use: nonsmoker Section Notes: Lives in [place], [place] alone . Patient is diabled. Lives [place] alone . Patient is diabled. [place] alone . Patient is diabled. Lives [place] alone . Patient is diabled. Lives [place] alone . Patient is diabled. Lives [place] alone . Patient is diabled. PROBLEMS Problem Type ICD Code Onset Dates Problem Status W/U Status Risk SNOMED Code Notes Problem Essential (primary) hypertension (I10) Active confirmed 81080256 Problem Other osteoporosis without current pathological fracture (M81.8) Active confirmed 08526790 Problem Proteinuria, unspecified (R80.9) Active confirmed 15384056 Problem Prediabetes (R73.03) Active confirmed 750955612 Problem Sjogren syndrome with inflammatory arthritis (M35.05) Active confirmed 04423942 Problem Iron deficiency anemia, unspecified iron deficiency anemia type (D50.9) Active confirmed 17163335 Problem Elevated high sensitivity C-reactive protein (R79.82) Active confirmed 111017094378577 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 39144871 Problem Obesity (BMI 30-39.9) (E66.9) Active confirmed 773025738 Problem Lupus (M32.9) Active confirmed 18664943 3 Problem Psoriatic arthritis (L40.50) Active confirmed 496528621 Problem Uncomplicated opioid dependence (F11.20) Active confirmed 82573177 VITAL SIGNS Heart Rate 81 /min 10/07/2023 Height-cm 163.83 cm 10/07/2023 Oximetry 97 % 10/07/2023 Blood pressure diastolic 82 mm Hg 10/07/2023 Weight-kg 88 kg 10/07/2023 Height 64.5 in 10/07/2023 Blood pressure systolic 146 mm Hg 10/07/2023 Weight 194.0 lbs 10/07/2023 BMI 32.78 kg/m2 10/07/2023 Encounters Encounter Location Date Provider Diagnosis [address] [id number] 08/05/[address] [id number] 10/07/2023 [facility] Encounter for genera l adult medical [...] C-reactive protein R79.82 and Beena infection B37.[address] [id number] 09/04/[address] [id number] 09/14/[address] [id number] 10/02/[address] [id number] 10/05/2023 [facility] Encounter Date Diagnosis [...] after pt stabalized with rheumatology Referral to safe expert as well 10/07/2023 Other osteoporosis without current [...] PANEL, STANDARD (7600) 04/07/2023 COMPREHENSIVE METABOLIC PANEL (08841) CBC (H/H, RBC, INDICES, WBC, PLT) (1759) 04/07/2023 CARDIO IQ(R) HS CRP (04015) 04/07/2023 HEMOGLOBIN A1c (496) 04/07/2023 INSULIN (561) 04/07/2023 Insurance Providers Payer Name Payer Address Payer Phone Subscriber Number Group Number Insured Name Patient Relationship to Insured Coverage Start Date Coverage End Date [facility] Medicare Advantag e [address] [address] [place], [place] [id number] [phone] [id number] CHINTAN FAN Self - patient is the insured [facility] [address] [place] [address] [phone] [id number] CHINTAN FAN Self - patient is the insured MEDICAL (GENERAL) HISTORY Medical History History ICD Code Lupus Psoriatic Arthritis Philipp's Disease Sjogren's Syndrome Hypertension Chicken Pox Shingles Surgical History Surgery Date(Month/Year) Bi lateral ankle surgery 2018 Tonsillectomy [place] Teeth removal Hospitalization History Reason Date(Month/Year) B-lateral ankle surgery 2018
--- OUTSIDE RECORDS SUMMARY | 2024-06-23 16:25 | XMS_ITS | Encounter Summary ---
Author Organization [facility] Address [address] [place] [address] Phone Care Team Providers Care Music Library Assistant Name Role Phone Unavailable Primary Care Provider Unavailabl e Encounter Details Date Type Department Care Team (Late st Contact Info) Description 03/26/2009 Abstract HISTORICAL CONVERSION [place] [phone] ProviderYoav MD [facility] [place] [phone] Social History Tobacco Use Types Packs/Day Years [...]
--- OUTSIDE RECORDS SUMMARY | 2024-06-23 16:25 | XMS_ITS | Encounter Summary ---
Author Organization [facility] Address [address] [place] [address] Phone Care Team Providers Care Cat Breeder Name Role Phone Unavailable Primary Care Provider Unavailabl e Encounter Details Date Type Department Care Team (Late st Contact Info) Description 11/20/2005 Legacy Encounter - Labs HISTORICAL CONVERSION [place] [address], [place] [address] ProviderYoav [place] [facility] [place] [address] Social History Tobacco Use Types Packs/Day Years [...]
--- OUTSIDE RECORDS SUMMARY | 2024-06-23 16:25 | XMS_ITS | Encounter Summary ---
Author Organization [facility] Address [address] [place] [address] Phone Care Team Providers Care Rn Field Case Manager Name Role Phone Unavailable Primary Care Provider Unavailabl e Encounter Details Date Type Department Care Team (Late st Contact Info) Description 09/18/2008 Legacy Encounter - Labs HISTORICAL CONVERSION [place] [phone], [place] [address] ProviderYoav MD [facility] [place] [address] Social History Tobacco Use Types Packs/Day Years [...]
--- OUTSIDE RECORDS SUMMARY | 2024-06-23 16:25 | XMS_ITS | Encounter Summary ---
Author Organization [facility] Address [address] [place] [address] Phone Care Team Providers Care Industrial Gas Servicer Helper Name Role Phone Unavailable Primary Care Provider Unavailabl e Encounter Details Date Type Department Care Team (Late st Contact Info) Description 11/06/2006 Legacy Encounter - Labs HISTORICAL CONVERSION [place] [phone], [place] [address] ProviderYoav MD [facility] [place] [address] Social History Tobacco Use Types Packs/Day Years [...]
--- OUTSIDE RECORDS SUMMARY | 2024-06-23 16:25 | XMS_ITS | Encounter Summary ---
Author Organization [facility] Address [address] [place] [address] Phone Care Team Providers Care Anesthesiology Faculty Name Role Phone Unavailable Primary Care Provider Unavailabl e Encounter Details Date Type Department Care Team (Late st Contact Info) Description 07/28/2006 Legacy Encounter - Labs HISTORICAL CONVERSION [place] [phone], [place] [address] ProviderYoav MD [address] [place] [address] Social History Tobacco Use Types Packs/Day Years [...] LAB RESULT SCAN PROCEDURE 07/28/2006 12:00 AM CIRCUS TRAIN SUPERVISOR DPS CONVERSION - LAB RESULT SCAN PROCEDURE 07/28/2006 12:00 AM CIRCUS TRAIN SUPERVISOR documented in this encounter Results * DPS CONVERSION - LAB RESULT SCAN PROCEDURE (07/28/2006 12:00 AM CIRCUS TRAIN SUPERVISOR) Narrative 07/28/2006 12:00 AM CIRCUS TRAIN SUPERVISOR Ordered by an unspecified provider. Historical Provider LAB BLOOD ORDERAB LES * DPS CONVERSION - LAB RESULT SCAN PROCEDURE (07/28/2006 12:00 AM CIRCUS TRAIN SUPERVISOR) Narrative 07/28/2006 12:00 AM CIRCUS TRAIN SUPERVISOR Ordered by an unspecified provider. Historical Provider LAB BLOOD ORDERAB LES documented in this encounter Visit Diagnoses Not on filedocumented in this encounter
--- OUTSIDE RECORDS SUMMARY | 2024-06-23 16:25 | XMS_ITS | Encounter Summary ---
Author Organization [facility] Address [address] [place] [address] Phone Care Team Providers Care Screener And Blender Operator Name Role Phone Unavailable Primary Care Provider Unavailabl e Encounter Details Date Type Department Care Team (Late st Contact Info) Description 10/28/2005 Legacy Encounter - Labs HISTORICAL CONVERSION [place] [address], [place] [address] ProviderYoav [place] [address] Social History Tobacco Use Types Packs/Day Years [...]
--- OUTSIDE RECORDS SUMMARY | 2024-06-23 16:25 | XMS_ITS | Encounter Summary ---
Author Organization [facility] Address [address] [place] [address] Phone Care Team Providers Care Leaf Stripper Name Role Phone Unavailable Primary Care Provider Unavailabl e Encounter Details Date Type Department Care Team (Late st Contact Info) Description 04/29/2006 Legacy Encounter - Labs HISTORICAL CONVERSION [place] [address], [place] [address] ProviderYoav MD [facility] [place] [address] Social History Tobacco Use Types Packs/Day Years [...] LAB RESULT SCAN PROCEDURE 04/29/2006 12:00 AM DISTRIBUTION TRANSFORMER ASSEMBLER DPS CONVERSION - LAB RESULT SCAN PROCEDURE 04/29/2006 12:00 AM DISTRIBUTION TRANSFORMER ASSEMBLER DPS CONVERSION - LAB RESULT SCAN PROCEDURE 04/29/2006 12:00 AM DISTRIBUTION TRANSFORMER ASSEMBLER documented in this encounter Results * DPS CONVERSION - LAB RESULT SCAN PROCEDURE (04/29/2006 12:00 AM DISTRIBUTION TRANSFORMER ASSEMBLER) Narrative 04/29/2006 12:00 AM DISTRIBUTION TRANSFORMER ASSEMBLER Ordered by an unspecified provider. Historical Provider LAB BLOOD ORDERAB LES * DPS CONVERSION - LAB RESULT SCAN PROCEDURE (04/29/2006 12:00 AM DISTRIBUTION TRANSFORMER ASSEMBLER) Narrative 04/29/2006 12:00 AM DISTRIBUTION TRANSFORMER ASSEMBLER Ordered by an unspecified provider. Historical Provider LAB BLOOD ORDERAB LES * DPS CONVERSION - LAB RESULT SCAN PROCEDURE (04/29/2006 12:00 AM DISTRIBUTION TRANSFORMER ASSEMBLER) Narrative 04/29/2006 12:00 AM DISTRIBUTION TRANSFORMER ASSEMBLER Ordered by an unspecified provider. Historical Provider LAB BLOOD ORDERAB LES documented in this encounter Visit Diagnoses Not on filedocumented in this encounter
== END 2024-06-23 13:29 | disposition home or self-care (01) ==
PROVIDERS: PCP Nurse Practitioner Family; Visit Provider Student in an Organized Health Care Education/Training Program
DX: L40.50 Arthropathic psoriasis, unspecified (principal); M35.01 Sjogren syndrome with keratoconjunctivitis; M80.0 Age-related osteoporosis with current pathological fracture; Z79.899 Other long term (current) drug therapy
CPT/HCPCS: 99214; G2211

== ENCOUNTER → 2024-06-23 12:34 | Outpatient (BNVA) | payer MEDICARE, MEDICAID, SELFPAY | PROVIDERS: PCP Nurse Practitioner Family; Visit Provider Student in an Organized Health Care Education/Training Program | DX: L40.50 Arthropathic psoriasis, unspecified (principal); M35.01 Sjogren syndrome with keratoconjunctivitis; M80.0 Age-related osteoporosis with current pathological fracture; Z79.899 Other long term (current) drug therapy | CPT/HCPCS: 99212 ==

== ENCOUNTER 2024-08-05 09:20 | Outpatient (AMB) | payer MEDICARE, MEDICAID, SELFPAY ==
--- NOTE | 2024-08-05 09:34 | A.OFFVISCC_ITS ---
Intake Visit Reasons: MAT tele Allergies sulfa Allergy (Mild, Uncoded 04/08/24 16:15) Hives HPI HPI MAT tele: Details: Patient presents for follow up via telehealth Currently prescribed Suboxone 2mg TID Taking btwn 2-3 films daily Denies any side effects Saw PCP at the end of the year--no changes to medication Labwork ordered -still needs to complete Review of Systems Const Reports as per HPI and Reports no additional complaints Telehealth Telehealth Telehealth Platform: Telephone Location of provider rendering services: practice address Location of patient: address on file Patient Identification confirmed using: Name, : Yes Telehealth method: voice only Patient verbally consented to treatment: Yes Patient verbally consented to billing insurance company: Yes Minutes spent on Phone/Video with Pt.: 12 [facility] Medical History (Updated 07/21/24 @ 15:33 by Gayla Jason MD) 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 Chronic low back pain Discoid lupus Thyroid disease Raynaud disease Neuropathy Arthritis Anemia Philipp thyroiditis, fibrous variant Polyarticular arthritis Hypertension Osteopenia of both ankles Surgical History History of ankle surgery History of tonsillectomy History of knee replacement Family History Paternal Grandfather Rheumatoid arthritis Lupus Father ALS (amyotrophic lateral sclerosis) Mother Macular degeneration Social History Household Members: None Housing: Apartment Alcohol intake: never Patient Tobacco Use Status: Never used Tobacco e-Cigarette/Vaping Use: Never Used Second Hand Smoke Exposure: No service: No Current occupational status: disabled Cognitive needs: No Hearing needs: No Vision needs: No Assessment & Plan Assessment & Plan (1) Opioid dependence: Code(s): F11.20 - Opioid dependence, uncomplicated Category: Medical Qualifiers: Substance use status: uncomplicated Qualified Code(s): F11.20 - Opioid dependence, uncomplicated Plan: * continue suboxone at current dose * follow up 2 months Medications: Refilled buprenorphine-naloxone 2-0.5 mg (Suboxone) 1 film sublingual TID 90 ea 1RF
--- OUTSIDE RECORDS SUMMARY | 2024-08-05 10:11 | XMS_ITS | Encounter Summary ---
Author Organization [facility] Address [address] [place] [address] Phone Care Team Providers Care Shell Sorter Name Role Phone Unavailable Primary Care Provider Unavailabl e Encounter Details Date Type Department Care Team (Late st Contact Info) Description 03/23/2014 Legacy Encounter - Labs HISTORICAL CONVERSION [place] [address], [place] [address] ProviderYoav MD [facility] [place] [address] Social History Tobacco Use Types Packs/Day Years [...]
--- OUTSIDE RECORDS SUMMARY | 2024-08-05 10:11 | XMS_ITS | Encounter Summary ---
Author Organization [facility] Address [address] [place] [address] Phone Care Team Providers Care Machine Joint Cutter Name Role Phone Unavailable Primary Care Provider Unavailabl e Encounter Details Date Type Department Care Team (Late st Contact Info) Description 06/11/2011 Legacy Encounter - Labs HISTORICAL CONVERSION [place] [address], [place] [address] ProviderYoav MD [facility] [place] [phone] Social History Tobacco Use Types Packs/Day Years [...] LAB RESULT SCAN PROCEDURE 06/11/2011 12:00 AM BRAKES INSPECTOR documented in this encounter Results * DPS CONVERSION - LAB RESULT SCAN PROCEDURE (06/11/2011 12:00 AM BRAKES INSPECTOR) Narrative 06/11/2011 12:00 AM BRAKES INSPECTOR Ordered by an unspecified provider. Historical Provider LAB BLOOD ORDERAB LES documented in this encounter Visit Diagnoses Not on filedocumented in this encounter
--- OUTSIDE RECORDS SUMMARY | 2024-08-05 10:11 | XMS_ITS | Encounter Summary ---
Author Organization [facility] Address [address] [place] [address] Phone Care Team Providers Care Bmx Rider Name Role Phone Unavailable Primary Care Provider Unavailabl e Encounter Details Date Type Department Care Team (Late st Contact Info) Description 03/01/2012 Legacy Encounter - Labs HISTORICAL CONVERSION [place] [address], [place] [address] ProviderYoav MD [facility] [place] [address] Social History Tobacco Use Types Packs/Day Years [...]
--- OUTSIDE RECORDS SUMMARY | 2024-08-05 10:11 | XMS_ITS | Encounter Summary ---
Author Organization [facility] Address [address] [place] [address] Phone Care Team Providers Care Board Of Directors Name Role Phone Unavailable Primary Care Provider Unavailabl e Encounter Details Date Type Department Care Team (Late st Contact Info) Description 09/12/2010 Legacy Encounter - Labs HISTORICAL CONVERSION [place] [address], [place] [address] ProviderYoav MD [address] [place] [address] Social History Tobacco Use Types Packs/Day Years [...]
--- OUTSIDE RECORDS SUMMARY | 2024-08-05 10:11 | XMS_ITS | Encounter Summary ---
Author Organization [facility] Address [address] [place] [address] Phone Care Team Providers Care Pony Cylinder Press Operator Name Role Phone Unavailable Primary Care Provider Unavailabl e Encounter Details Date Type Department Care Team (Late st Contact Info) Description 03/27/2015 Clinical Support HISTORICAL [address] [address] ProviderYoav MD [facility] [place] [phone] Social History Tobacco Use Types Packs/Day Years [...]
--- OUTSIDE RECORDS SUMMARY | 2024-08-05 10:11 | XMS_ITS | Encounter Summary ---
Author Organization [facility] Address [address] [place] [address] Phone Care Team Providers Care Clinical Dental Technician Name Role Phone Unavailable Primary Care Provider Unavailabl e Encounter Details Date Type Department Care Team (Late st Contact Info) Description 01/20/2013 Legacy Encounter - Labs HISTORICAL CONVERSION [place] [address], [place] [address] ProviderYoav MD [facility] [place] [address] Social History Tobacco Use Types Packs/Day Years [...]
--- OUTSIDE RECORDS SUMMARY | 2024-08-05 10:11 | XMS_ITS | Encounter Summary ---
Author Organization [facility] Address [address] [place] [address] Phone Care Team Providers Care Cut File Clerk Name Role Phone Unavailable Primary Care Provider Unavailabl e Encounter Details Date Type Department Care Team (Late st Contact Info) Description 06/14/2012 Legacy Encounter - Labs HISTORICAL CONVERSION [place] [address], [place] [address] ProviderYoav MD [facility] [place] [phone] Social History Tobacco Use Types Packs/Day Years [...] LAB RESULT SCAN PROCEDURE 06/14/2012 12:00 AM UNIT SUPPORT REPRESENTATIVE documented in this encounter Results * DPS CONVERSION - LAB RESULT SCAN PROCEDURE (06/14/2012 12:00 AM UNIT SUPPORT REPRESENTATIVE) Narrative 06/14/2012 12:00 AM UNIT SUPPORT REPRESENTATIVE Ordered by an unspecified provider. Historical Provider LAB BLOOD ORDERAB LES documented in this encounter Visit Diagnoses Not on filedocumented in this encounter
--- OUTSIDE RECORDS SUMMARY | 2024-08-05 10:11 | XMS_ITS | Clinical Summary ---
Author Organization [facility] Address [address] [place] [address] Care Team Providers Care Plant Operations Manager Name Role Phone Pcp, No Primary Care [...] Take 50 mg by mouth nightly. Active Active Problems No known active problems Encounters Date Type Department Care Team Description 05/27/2024 2:40 PM EST Office Visit [facility] [address] [phone] Alok Pederson MD Devitt, Precious Lopez, DEYSI Acute cystitis with hematuria (Primary Dx) 05/27/2024 [...] (05/27/2024 3:10 PM EST) Culture SEE NOTE(A) [employer] Comment: ??CULTURE, URINE, ROUTINE ?Micro Number: ?[id number] ??Test Status: ? Final ??Specimen Source: ?? [...] 05/29/2024 3:20 AM EST Precious Carrasco APRN LAB AMB MICRO ORDERA BLES [employer] [address] [place] [phone] * (ABNORMAL) POCT Urinalysis Dipstick, Automated (05/27/2024 [...] Leukocyte Esterase, UA Trace(A) Negative Lot Number [id number] Wel[employer] Gas Automatic Pass Pass Urine 05/27/2024 3:07 PM EST Precious Carrasco APRN POINT OF CARE TEST O RDERABLES from Last 3 Months Care Teams Plant Operations Manager Relationship Specialty Start Date End Date Pcp, No PCP - General General Medicine 05/27/24
--- OUTSIDE RECORDS SUMMARY | 2024-08-05 10:11 | XMS_ITS | Encounter Summary ---
Author Organization [facility] Address [address] [place] [address] Phone Care Team Providers Care Apparel Sales Associate Name Role Phone Unavailable Primary Care Provider Unavailabl e Encounter Details Date Type Department Care Team (Late st Contact Info) Description 02/13/2014 Legacy Encounter - Labs HISTORICAL CONVERSION [place] [address], [place] [address] ProviderYoav MD [facility] [place] [address] Social History Tobacco Use Types Packs/Day Years [...]
--- OUTSIDE RECORDS SUMMARY | 2024-08-05 10:11 | XMS_ITS | Encounter Summary ---
Author Organization [facility] Address [address] [place] [address] Phone Care Team Providers Care Clock Mechanic Name Role Phone Unavailable Primary Care Provider Unavailabl e Encounter Details Date Type Department Care Team (Late st Contact Info) Description 08/18/2015 Legacy Encounter - Labs HISTORICAL CONVERSION [place] [address], [place] [address] ProviderYoav MD [facility] [place] [address] Social History Tobacco Use Types Packs/Day Years [...]
--- OUTSIDE RECORDS SUMMARY | 2024-08-05 10:11 | XMS_ITS | Clinical Summary ---
Author Organization [facility] Address [address] [place] [address] Phone Care Team Providers Care Legal Librarian Name Role Phone Unavailable Primary Care Provider [...] Active -Hx Entry 03/27/2015 Active HYDROcodone-acetami nophen ([place]) 10-325 MG per tablet [place]( 10-325MG Oral 1 as needed ) Active [...] Comments Blood Pressure 122/74 03/27/2015 12:01 AM RAILWAY SHUNTER Pulse 80 03/27/2015 12:01 AM RAILWAY SHUNTER Temperature - - Respiratory Rate - - Oxygen Saturation - - Inhaled Oxygen Concentration - - Weight 68.9 kg (152 lb) 03/27/2015 12:01 AM RAILWAY SHUNTER Height 162.6 cm (5' 4 ) 03/27/2015 12:01 AM RAILWAY SHUNTER Body Mass Index 26.09 03/27/2015 12:01 AM RAILWAY SHUNTER Plan of Treatment Not on file
--- OUTSIDE RECORDS SUMMARY | 2024-08-05 10:11 | XMS_ITS | Encounter Summary ---
Author Organization [facility] Address [address] [place] [address] Phone Care Team Providers Care Grain Elevator Agent Name Role Phone Unavailable Primary Care Provider Unavailabl e Encounter Details Date Type Department Care Team (Late st Contact Info) Description 03/29/2009 Legacy Encounter - Labs HISTORICAL CONVERSION [place] [address], [place] [address] ProviderYoav MD [facility] [place] [address] Social History Tobacco Use Types Packs/Day Years [...] LAB RESULT SCAN PROCEDURE 03/30/2009 12:00 AM SEISMOGRAPH OBSERVER DPS CONVERSION - LAB RESULT SCAN PROCEDURE 03/29/2009 12:00 AM SEISMOGRAPH OBSERVER documented in this encounter Results * DPS CONVERSION - LAB RESULT SCAN PROCEDURE (03/30/2009 12:00 AM SEISMOGRAPH OBSERVER) Narrative 03/30/2009 12:00 AM SEISMOGRAPH OBSERVER Ordered by an unspecified provider. Historical Provider LAB BLOOD ORDERAB LES * DPS CONVERSION - LAB RESULT SCAN PROCEDURE (03/29/2009 12:00 AM SEISMOGRAPH OBSERVER) Narrative 03/29/2009 12:00 AM SEISMOGRAPH OBSERVER Ordered by an unspecified provider. Historical Provider LAB BLOOD ORDERAB LES documented in this encounter Visit Diagnoses Not on filedocumented in this encounter
--- OUTSIDE RECORDS SUMMARY | 2024-08-05 10:11 | XMS_ITS | Encounter Summary ---
Author Organization [facility] Address [address] [place] [address] Phone Care Team Providers Care Logging Tractor Operator Swamp Name Role Phone Unavailable Primary Care Provider Unavailabl e Encounter Details Date Type Department Care Team (Late st Contact Info) Description 03/28/2015 Abstract HISTORICAL CONVERSION [place] [phone] ProviderYoav MD [facility] [place] [phone] Social History Tobacco Use Types Packs/Day Years [...]
--- OUTSIDE RECORDS SUMMARY | 2024-08-05 10:11 | XMS_ITS | Encounter Summary ---
Author Organization [facility] Address [address] [place] [address] Phone Care Team Providers Care Field Specialist Name Role Phone Unavailable Primary Care Provider Unavailabl e Encounter Details Date Type Department Care Team (Late st Contact Info) Description 10/22/2012 Legacy Encounter - Labs HISTORICAL CONVERSION [place] [address], [place] [address] ProviderYoav MD [facility] [address] Social History Tobacco Use Types Packs/Day Years [...]
--- OUTSIDE RECORDS SUMMARY | 2024-08-05 10:11 | XMS_ITS | Encounter Summary ---
Author Organization [facility] Address [address] [place] [address] Phone Care Team Providers Care School Inspector Name Role Phone Unavailable Primary Care Provider Unavailabl e Encounter Details Date Type Department Care Team (Late st Contact Info) Description 08/17/2015 Legacy Encounter - Labs HISTORICAL CONVERSION [place] [phone], [place] [address] ProviderYoav [place] [facility] [place] [address] Social History Tobacco Use Types Packs/Day Years [...]
--- OUTSIDE RECORDS SUMMARY | 2024-08-05 10:11 | XMS_ITS | Encounter Summary ---
Author Organization [facility] Address [address] [place] [address] Phone Care Team Providers Care Nuclear Plant Instrument Technician Name Role Phone Unavailable Primary Care Provider Unavailabl e Encounter Details Date Type Department Care Team (Late st Contact Info) Description 11/19/2009 Legacy Encounter - Labs HISTORICAL CONVERSION [place] [phone], [place] [address] ProviderYoav MD [facility] [place] [address] Social History Tobacco Use Types Packs/Day Years [...]
--- OUTSIDE RECORDS SUMMARY | 2024-08-05 10:11 | XMS_ITS | Encounter Summary ---
Author Organization [facility] Address [address] [place] [address] Phone Care Team Providers Care Wine Manager Name Role Phone Unavailable Primary Care Provider Unavailabl e Encounter Details Date Type Department Care Team (Late st Contact Info) Description 10/29/2013 Legacy Encounter - Labs HISTORICAL CONVERSION [place] [phone], [place] [address] ProviderYoav MD [address] [place] [address] Social History Tobacco Use Types Packs/Day Years [...]
--- OUTSIDE RECORDS SUMMARY | 2024-08-05 10:11 | XMS_ITS | Encounter Summary ---
Author Organization [facility] Address [address] [place] [address] Phone Care Team Providers Care Can Sterilizer Name Role Phone Unavailable Primary Care Provider Unavailabl e Encounter Details Date Type Department Care Team (Late st Contact Info) Description 09/13/2012 Legacy Encounter - Labs HISTORICAL CONVERSION [place] [phone], [place] [address] ProviderYoav MD [facility] [place] [address] Social History Tobacco Use Types Packs/Day Years [...]
--- OUTSIDE RECORDS SUMMARY | 2024-08-05 10:11 | XMS_ITS | Encounter Summary ---
Author Organization [facility] Address [address] [place] [address] Phone Care Team Providers Care C D Still Operator Name Role Phone Unavailable Primary Care Provider Unavailabl e Encounter Details Date Type Department Care Team (Late st Contact Info) Description 06/18/2009 Legacy Encounter - Labs HISTORICAL CONVERSION [place] [phone], [place] [address] ProviderYoav MD [facility] [address] Social History Tobacco Use Types Packs/Day Years [...] LAB RESULT SCAN PROCEDURE 06/18/2009 12:00 AM DECORATOR INSPECTOR documented in this encounter Results * DPS CONVERSION - LAB RESULT SCAN PROCEDURE (06/18/2009 12:00 AM DECORATOR INSPECTOR) Narrative 06/18/2009 12:00 AM DECORATOR INSPECTOR Ordered by an unspecified provider. Historical Provider LAB BLOOD ORDERAB LES documented in this encounter Visit Diagnoses Not on filedocumented in this encounter
--- OUTSIDE RECORDS SUMMARY | 2024-08-05 10:11 | XMS_ITS | Encounter Summary ---
Author Organization [facility] Address [address] [place] [address] Phone Care Team Providers Care Call Center Agent Name Role Phone Unavailable Primary Care Provider Unavailabl e Encounter Details Date Type Department Care Team (Late st Contact Info) Description 09/01/2012 Legacy Encounter - Labs HISTORICAL CONVERSION [place] [phone], [place] [address] ProviderYo[place] [address] Social History Tobacco Use Types Packs/Day Years [...]
--- OUTSIDE RECORDS SUMMARY | 2024-08-05 10:11 | XMS_ITS | Encounter Summary ---
Author Organization [facility] Address [address] [place] [address] Phone Care Team Providers Care Lead Pharmacy Technician Name Role Phone Unavailable Primary Care Provider Unavailabl e Encounter Details Date Type Department Care Team (Late st Contact Info) Description 12/24/2012 Legacy Encounter - Labs HISTORICAL CONVERSION [place] [phone], [place] [address] ProviderYoav MD [facility] [place] [address] Social History Tobacco Use Types Packs/Day Years [...]
--- OUTSIDE RECORDS SUMMARY | 2024-08-05 10:11 | XMS_ITS | Encounter Summary ---
Author Organization [facility] Address [address] [place] [address] Phone Care Team Providers Care Insurance Sales Agent Name Role Phone Unavailable Primary Care Provider Unavailabl e Encounter Details Date Type Department Care Team (Late st Contact Info) Description 08/07/2012 Legacy Encounter - Labs HISTORICAL CONVERSION [place] [phone], [place] [address] [place] [address] Social History Tobacco Use Types Packs/Day Years [...]
--- OUTSIDE RECORDS SUMMARY | 2024-08-05 10:11 | XMS_ITS | Encounter Summary ---
Author Organization [facility] Address [address] [place] [address] Phone Care Team Providers Care Financial Quantitative Analyst Name Role Phone Unavailable Primary Care Provider Unavailabl e Encounter Details Date Type Department Care Team (Late st Contact Info) Description 06/06/2013 Abstract HISTORICAL CONVERSION Steven [place] [phone] ProviderYoav MD [facility] [place] [phone] Social History Tobacco Use Types Packs/Day Years [...]
--- OUTSIDE RECORDS SUMMARY | 2024-08-05 10:11 | XMS_ITS | Encounter Summary ---
Author Organization [facility] Address [address] [place] [address] Phone Care Team Providers Care Anesthesiology Faculty Name Role Phone Unavailable Primary Care Provider Unavailabl e Encounter Details Date Type Department Care Team (Late st Contact Info) Description 10/23/2009 Legacy Encounter - Labs HISTORICAL CONVERSION [place] [phone], [place] [address] ProviderYoav MD [facility] [place] [address] Social History Tobacco Use Types Packs/Day Years [...]
--- OUTSIDE RECORDS SUMMARY | 2024-08-05 10:11 | XMS_ITS | Encounter Summary ---
Author Organization [facility] Address [address] [place] [address] Phone Care Team Providers Care Territory Sales Manager Name Role Phone Unavailable Primary Care Provider Unavailabl e Encounter Details Date Type Department Care Team (Late st Contact Info) Description 01/09/2014 Legacy Encounter - Labs HISTORICAL CONVERSION [place] [phone], [place] [address] ProviderYoav MD [address] [place] [address] Social History Tobacco Use Types Packs/Day Years [...]
--- OUTSIDE RECORDS SUMMARY | 2024-08-05 10:11 | XMS_ITS | Encounter Summary ---
Author Organization [facility] Address [address] [place] [address] Phone Care Team Providers Care Director Of Category Management Name Role Phone Unavailable Primary Care Provider Unavailabl e Encounter Details Date Type Department Care Team (Late st Contact Info) Description 06/29/2012 Legacy Encounter - Labs HISTORICAL CONVERSION [place] [phone], [place] [address] ProviderYoav MD [facility] [place] [address] Social History Tobacco Use Types Packs/Day Years [...] LAB RESULT SCAN PROCEDURE 06/29/2012 12:00 AM BINDING DYER documented in this encounter Results * DPS CONVERSION - LAB RESULT SCAN PROCEDURE (06/29/2012 12:00 AM BINDING DYER) Narrative 06/29/2012 12:00 AM BINDING DYER Ordered by an unspecified provider. Historical Provider LAB BLOOD ORDERAB LES documented in this encounter Visit Diagnoses Not on filedocumented in this encounter
--- OUTSIDE RECORDS SUMMARY | 2024-08-05 10:11 | XMS_ITS ---
Author Organization [facility], [facility] Address [address] [place] [id number] Care Team Providers Care Supervisor Endless Track Vehicle Name Role Phone HARMEETCHINORAMON Primary Care Provider [phone] MALICK FAULKNER Unavailable [phone] REASON FOR VISIT Rx Change MEDICATIONS Medication SIG (Take, Route, Frequency, Duration) Notes Start Date End Date Status Metoprolol Succinate 50 MG 1 capsule Ora lly Once a day for 90 days 10/06/2023 Active Encounters Encounter Location Date Provider Diagnosis [address] [phone] 10/05/2023 MALICK STANTON PLAN OF TREATMENT Medication Medication Name Sig Start Date Stop Date Notes Metoprolol Succinate 25 MG 1 capsule Orally twice a day Metoprolol Succinate 50 MG 1 capsule Ora lly Once a day for 90 days 10/06/2023 Progress Notes * BLANCA FANALEJANDROOB: 5 (57 yo F)Acc No.[id number]:10/05/2023 Patient:??CHINTAN FAN :1965?Age:57 Y?Sex:Fe male Phone: Address:[address] [place] [address], [address], [place] [address] * Refills?? Stop Metoprolol Succinate Capsule ER 24 Hour Sprinkle, 25 MG, Orally, 1 capsule, twice a day Start Metoprolol Succinate Capsule ER 24 Hour Sprinkle, 50 MG, Orally, 90 Capsule, 1 capsule, Once a day, 90 days, Refills=5 * true * Date:??
--- OUTSIDE RECORDS SUMMARY | 2024-08-05 10:11 | XMS_ITS | Encounter Summary ---
Author Organization [facility] Address [address] [place] [address] Phone Care Team Providers Care Laundromat Manager Name Role Phone Unavailable Primary Care Provider Unavailabl e Encounter Details Date Type Department Care Team (Late st Contact Info) Description 01/18/2014 Legacy Encounter - Labs HISTORICAL CONVERSION [place] [phone], [place] [address] ProviderYoav MD [address] [place] [address] Social History Tobacco Use Types Packs/Day Years [...]
--- OUTSIDE RECORDS SUMMARY | 2024-08-05 10:11 | XMS_ITS ---
Author Organization [facility], [facility] Address [address] [place] [phone] Care Team Providers Care Financial Health Counselor Name Role Phone HARMEET RAMON Primary Care Provider [phone] [facility] MALICK STANTON Unavailable [phone] REASON FOR VISIT Refills MEDICATIONS Medication SIG (Take, Route, Frequency, Duration) Notes Start Date End Date Status Metoprolol Succinate 25 MG 1 capsule Ora lly twice a day for 30 days 10/02/2023 Active Encounters Encounter Location Date Provider Diagnosis [facility] [address] [place], [place] [phone] 10/02/2023 MALICK STANTON PLAN OF TREATMENT Medication Medication Name Sig Start Date Stop Date Notes Metoprolol Succinate 25 MG 1 capsule Ora lly twice a day for 30 days 10/02/2023 Metoprolol Succinate 25 MG 1 capsule Orally Once a day Progress Notes * BLANCA FANALEJANDROOB: 5 (57 yo F)Acc No.[id number]:10/02/2023 Patient:??CHINTAN FAN :1965?Age:57 Y?Sex:Fe male Phone: Address:[address] [place] [address], [address], [place] [address] * Refills?? Stop Metoprolol Succinate Capsule ER 24 Hour Sprinkle, 25 MG, Orally, 1 capsule, Once a day Start Metoprolol Succinate Capsule ER 24 Hour Sprinkle, 25 MG, Orally, 60 Capsule, 1 capsule, twice a day, 30 days * true * Date:??
--- OUTSIDE RECORDS SUMMARY | 2024-08-05 10:11 | XMS_ITS | Encounter Summary ---
Author Organization [facility] Address [address] [place] [address] Phone Care Team Providers Care Freight And Passenger Agent Name Role Phone Unavailable Primary Care Provider Unavailabl e Encounter Details Date Type Department Care Team (Late st Contact Info) Description 07/15/2011 Legacy Encounter - Labs HISTORICAL CONVERSION [place] [phone], [place] [address] ProviderYoav MD [facility] [place] [phone] Social History Tobacco Use Types Packs/Day Years [...] LAB RESULT SCAN PROCEDURE 07/15/2011 12:00 AM QUALITY ASSURANCE PROJECT MANAGER documented in this encounter Results * DPS CONVERSION - LAB RESULT SCAN PROCEDURE (07/15/2011 12:00 AM QUALITY ASSURANCE PROJECT MANAGER) Narrative 07/15/2011 12:00 AM QUALITY ASSURANCE PROJECT MANAGER Ordered by an unspecified provider. Historical Provider LAB BLOOD ORDERAB LES documented in this encounter Visit Diagnoses Not on filedocumented in this encounter
--- OUTSIDE RECORDS SUMMARY | 2024-08-05 10:11 | XMS_ITS | Encounter Summary ---
Author Organization [facility] Address [address] [place] [address] Phone Care Team Providers Care Material Requirements Planning Manager Name Role Phone Unavailable Primary Care Provider Unavailabl e Encounter Details Date Type Department Care Team (Late st Contact Info) Description 11/01/2013 Abstract HISTORICAL CONVERSION Lisa [place] [phone] ProviderYoav MD [facility] [place] [phone] Social History Tobacco Use Types Packs/Day Years [...]
--- OUTSIDE RECORDS SUMMARY | 2024-08-05 10:11 | XMS_ITS | Encounter Summary ---
Author Organization [facility] Address [address] [place] [address] Phone Care Team Providers Care Paper Machine Backtender Name Role Phone Unavailable Primary Care Provider Unavailabl e Encounter Details Date Type Department Care Team (Late st Contact Info) Description 07/06/2009 Abstract HISTORICAL CONVERSION Tyler [place] [phone] ProviderYoav MD [facility] [place] [phone] Social History Tobacco Use Types Packs/Day Years [...]
--- OUTSIDE RECORDS SUMMARY | 2024-08-05 10:11 | XMS_ITS | Encounter Summary ---
Author Organization [facility] Address [address] [place] [address] Phone Care Team Providers Care Coverstitch Elastic Attacher Name Role Phone Unavailable Primary Care Provider Unavailabl e Encounter Details Date Type Department Care Team (Late st Contact Info) Description 03/13/2015 Legacy Encounter - Labs HISTORICAL CONVERSION [place] [address], [place] [address] ProviderYoav MD [facility] [place] [address] Social History Tobacco Use Types Packs/Day Years [...]
--- OUTSIDE RECORDS SUMMARY | 2024-08-05 10:11 | XMS_ITS | Encounter Summary ---
Author Organization [facility] Address [address] [place] [address] Phone Care Team Providers Care Manager Of Development Name Role Phone Unavailable Primary Care Provider Unavailabl e Encounter Details Date Type Department Care Team (Late st Contact Info) Description 03/09/2014 Legacy Encounter - Labs HISTORICAL CONVERSION [place] [address], [place] [address] ProviderYoav MD [facility] [place] [address] Social History Tobacco Use Types Packs/Day Years [...]
--- OUTSIDE RECORDS SUMMARY | 2024-08-05 10:12 | XMS_ITS | Encounter Summary ---
Author Organization [facility] Address [address] [place] [address] Phone Care Team Providers Care Community Support Professional Name Role Phone Unavailable Primary Care Provider Unavailabl e Encounter Details Date Type Department Care Team (Late st Contact Info) Description 11/20/2005 Legacy Encounter - Labs HISTORICAL CONVERSION [place] [phone], [place] [address] ProviderYoav MD [facility] [place] [address] Social History Tobacco Use Types Packs/Day Years [...]
--- OUTSIDE RECORDS SUMMARY | 2024-08-05 10:12 | XMS_ITS | Encounter Summary ---
Author Organization [facility] Address [address] [place] [address] Phone Care Team Providers Care Senior Linux Systems Engineer Name Role Phone Unavailable Primary Care Provider Unavailabl e Encounter Details Date Type Department Care Team (Late st Contact Info) Description 08/28/2006 Legacy Encounter - Labs HISTORICAL CONVERSION [place] [address], [place] [address] ProviderYoav MD [facility] [place] [address] Social History Tobacco Use Types Packs/Day Years [...]
--- OUTSIDE RECORDS SUMMARY | 2024-08-05 10:12 | XMS_ITS | Encounter Summary ---
Author Organization [facility] Address [address] [place] [address] Phone Care Team Providers Care Utilities Service Investigator Name Role Phone Unavailable Primary Care Provider Unavailabl e Encounter Details Date Type Department Care Team (Late st Contact Info) Description 09/18/2008 Legacy Encounter - Labs HISTORICAL CONVERSION [place] [address], [place] [address] ProviderYo[place] [address] Social History Tobacco Use Types Packs/Day Years [...]
--- OUTSIDE RECORDS SUMMARY | 2024-08-05 10:12 | XMS_ITS | Encounter Summary ---
Author Organization [facility] Address [address] [place] [address] Phone Care Team Providers Care Base Filler Operator Name Role Phone Unavailable Primary Care Provider Unavailabl e Encounter Details Date Type Department Care Team (Late st Contact Info) Description 03/26/2009 Abstract HISTORICAL CONVERSION Tina [place] [phone] ProviderYoav MD [facility] [place] [phone] Social History Tobacco Use Types Packs/Day Years [...]
--- OUTSIDE RECORDS SUMMARY | 2024-08-05 10:12 | XMS_ITS | Encounter Summary ---
Author Organization [facility] Address [address] [place] [address] Phone Care Team Providers Care Internal Control Consultant Name Role Phone Unavailable Primary Care Provider Unavailabl e Encounter Details Date Type Department Care Team (Late st Contact Info) Description 10/28/2005 Legacy Encounter - Labs HISTORICAL CONVERSION [place] [address], [place] [address] ProviderYoav MD [facility] [place] [address] Social History Tobacco Use Types Packs/Day Years [...]
--- OUTSIDE RECORDS SUMMARY | 2024-08-05 10:12 | XMS_ITS | Encounter Summary ---
Author Organization [facility] Address [address] [place] [address] Phone Care Team Providers Care Flue Dust Laborer Name Role Phone Unavailable Primary Care Provider Unavailabl e Encounter Details Date Type Department Care Team (Late st Contact Info) Description 11/06/2006 Legacy Encounter - Labs HISTORICAL CONVERSION [place] [address], [place] [address] ProviderYoav MD [facility] [place] [address] Social History Tobacco Use Types Packs/Day Years [...]
--- OUTSIDE RECORDS SUMMARY | 2024-08-05 10:12 | XMS_ITS | Encounter Summary ---
Author Organization [facility] Address [address] [place] [address] Phone Care Team Providers Care Director Of Research Center Name Role Phone Unavailable Primary Care Provider Unavailabl e Encounter Details Date Type Department Care Team (Late st Contact Info) Description 04/29/2006 Legacy Encounter - Labs HISTORICAL CONVERSION [place] [address], [place] [address] ProviderYoav MD [facility] [place] [address] Social History Tobacco Use Types Packs/Day Years [...] LAB RESULT SCAN PROCEDURE 04/29/2006 12:00 AM PATRIOT MISSILE AIR DEFENSE ARTILLERY DPS CONVERSION - LAB RESULT SCAN PROCEDURE 04/29/2006 12:00 AM PATRIOT MISSILE AIR DEFENSE ARTILLERY DPS CONVERSION - LAB RESULT SCAN PROCEDURE 04/29/2006 12:00 AM PATRIOT MISSILE AIR DEFENSE ARTILLERY documented in this encounter Results * DPS CONVERSION - LAB RESULT SCAN PROCEDURE (04/29/2006 12:00 AM PATRIOT MISSILE AIR DEFENSE ARTILLERY) Narrative 04/29/2006 12:00 AM PATRIOT MISSILE AIR DEFENSE ARTILLERY Ordered by an unspecified provider. Historical Provider LAB BLOOD ORDERAB LES * DPS CONVERSION - LAB RESULT SCAN PROCEDURE (04/29/2006 12:00 AM PATRIOT MISSILE AIR DEFENSE ARTILLERY) Narrative 04/29/2006 12:00 AM PATRIOT MISSILE AIR DEFENSE ARTILLERY Ordered by an unspecified provider. Historical Provider LAB BLOOD ORDERAB LES * DPS CONVERSION - LAB RESULT SCAN PROCEDURE (04/29/2006 12:00 AM PATRIOT MISSILE AIR DEFENSE ARTILLERY) Narrative 04/29/2006 12:00 AM PATRIOT MISSILE AIR DEFENSE ARTILLERY Ordered by an unspecified provider. Historical Provider LAB BLOOD ORDERAB LES documented in this encounter Visit Diagnoses Not on filedocumented in this encounter
--- OUTSIDE RECORDS SUMMARY | 2024-08-05 10:12 | XMS_ITS ---
Author Organization [facility] Address [address] [place], [place] [id number] Care Team Providers Care Blanket Cutter Hand Name Role Phone RAMON GA Primary Care Provider [phone] MALICK STANTON Unavailable [phone] ALLERGIES Allergen (clinical drug ingredient) Drug/Non Drug Allergy documented on EMR Reaction Allergy Type Onset Date Status Substance with sulfonamide structure and antibacterial mechanism of action (substance) Sulfa Antibiotics stomach upset Drug Allergy Active REASON FOR REFERRAL Reason please order Cologua rd for pt Diagnosis 1 Encounter for screen ing for malignant neoplasm of colon (Z12.11) [facility] Referring Provider First Name MALICK Referring Provider Last Name MAXIMINO Referring Provider Speciality Preventive Medicine [facility] Referred Address [address] [place], [id number], Referred Provider Specialty Diagnostic L aboratory General Notes JONO FULTON 09/22 09:49:16 AM >Order for Cologuard and demographics faxed to [facility] [phone]. Referral Priority Routine REASON FOR VISIT Annual [...] day for 30 days 09/04/2023 Active Nystatin 315632 UNIT/GM 1 application Externally Twice a day [...] Tobacco use: nonsmoker Section Notes: Lives in [place], [place] alone . Patient is diabled. VITAL SIGNS Blood pressure systolic 146 mm Hg 10/07/19 24 Blood pressure diastolic 82 mm Hg 024 Heart Rate 81 /min 10/07/2023 Height 64.5 in 10/07/2023 Weight 194.0 lbs 10/07/2023 BMI 32.78 kg/m2 10/07/2023 Oximetry 97 % 10/07/2023 Height-cm 163.83 cm 10/07/2023 Weight-kg 88 kg 10/07/2023 Encounters Encounter Location Date Provider Diagnosis [address] [id number] 10/07/2023 MALICK STANTON Encounter for genera l [...] after pt stabalized with rheumatology Referral to motion picture actor as well 10/07/2023 Other osteoporosis without current [...] e a day for 90 days Nystatin 711786 UNIT/GM 1 application Ex ternally Twice a [...] after pt stabalized with rheumatology Referral to motion picture actor as well Other osteoporosis without c urrent [...] please order Grace fregoso for pt , [address] [place] [address], [place], [phone], [facility], Next Appt Details Follow Up: 3 Months, Reason: with repeat labs Progress Notes * BLANCA FANALEJANDROOB: 5 (57 yo F)Acc No.[id number]:10/07/2023 Progress Note Patient:??FABIANA FAN Provider:??MALICK STANTON NP :1965?Age:57 Y?Sex:Fe male Date:10/07/2023 Phone: Address:[address] [place] [address] [place], [address], [place], [place] Pcp:RAMON GA Subjective: * Chief Complaints: * ?Annual CPE, EKG * HPI: ?Patient Care Team:?Meat Stuffer:??Dr. Echeverria, Sherif Rheum , Dr. Echeverria, Sherif Rheum.? Providers/Specialists: Hematology: In [place]. ?Visit info:? Fabiana presents today for her [...] sleeping, substance abuse.? * Medical History:?? * Explosives Engineer History:??Menstrual hist ory:??LMP:?? Has not had period in 20 years,?Age of Menarche:??14.??Last pap smear date??15 years - normalAppt. 12/2023 for Annual @ [facility].??Last mammogram date??08/2023 @ [facility].?? * OB History:?? Histo ry:??Total pregnancies:??0.?? * Surgical History:??Bi latera l ankle surgery 2018Tonsillectomy [place] Teeth removal * Ocular Surgical History:?? * Hospitalization/Major Diagno stic Procedure:??B-lateral ankle surgery 2018 * Family History:??Father: dec eased, ALS.??Mother: alive, Hypertension.??Paternal Grandfather: , arthritis, Lupus.??Paternal Grandmother: , Unknown.??Maternal Grandfather: , Unknown.??Maternal Grandmother: , Unknown.??Sister: alive, Thyroid Disease.?? * Social History:?Tobacco Use:??Tobacco Use/Smoking??Tobacco use:??nonsmoker.?Drugs/Alcohol:??Do you smoke marijuana?: Denies. Do you drink alcohol?: No. ?Lives in [place], [place] alone. Patient is diabled. * Medications:??TakingZoledron [...] examination with abnormal findings?? Start Nystatin Powder, 886008 UNIT/GM, 1 application, Externally, Twice a day, [...] after pt stabalized with rheumatology Referral to motion picture actor as well? 13.??Other osteoporosis with out current [...] No Td/Tdap: Due Hep A/Hep B: [place] [employer]ER[employer] AGENT: In december Mammogram: August 2023 Eye Exam: UTD Dental Exam: uTD Depression Scale: Negative Alcohol Misuse Screening: None Smoking Cessation: Nonsmoker Screened HTN, diabetes, BMI. * Follow Up:??3 Months (Reason : with repeat labs) Care Plan: * Problems:?? * Billing Information: * Visit Code:?? 31675 Preventive Care Est Pt. Age 40-64. * Procedure Codes:?? * Sign off status: Completed true * Provider:??MALICK STANTON NP Date:?? History and Physical Notes * HPI (History of Present Illness) Category Sub-Category Detail Notes Category Not es Patient Care Team Meat Stuffer: Brennon Odell Rheum , Sherif Odell Rheum Providers/Speciali sts: Hematology: In [place] Examination Category Sub-Category Detail Notes Category Not [...]
--- OUTSIDE RECORDS SUMMARY | 2024-08-05 10:12 | XMS_ITS | Encounter Summary ---
Author Organization [facility] Address [address] [place] [address] Phone Care Team Providers Care Manufacturing Management Associate Name Role Phone Unavailable Primary Care Provider Unavailabl e Encounter Details Date Type Department Care Team (Late st Contact Info) Description 01/27/2006 Abstract HISTORICAL CONVERSION [place] [id number] ProviderYoav MD [facility] [place] [id number] Social History Tobacco Use Types Packs/Day Years [...]
--- OUTSIDE RECORDS SUMMARY | 2024-08-05 10:12 | XMS_ITS | Encounter Summary ---
Author Organization [facility] Address [address] [place] [address] Phone Care Team Providers Care Insulation Machine Operator Name Role Phone Unavailable Primary Care Provider Unavailabl e Encounter Details Date Type Department Care Team (Late st Contact Info) Description 10/05/2008 Legacy Encounter - Labs HISTORICAL CONVERSION [place] [address], [place] [address] ProviderYoav [place] [address] Social History Tobacco Use Types Packs/Day Years [...]
--- OUTSIDE RECORDS SUMMARY | 2024-08-05 10:12 | XMS_ITS | Encounter Summary ---
Author Organization [facility] Address [address] [place] [address] Phone Care Team Providers Care Government Clerk Name Role Phone Unavailable Primary Care Provider Unavailabl e Encounter Details Date Type Department Care Team (Late st Contact Info) Description 01/30/2006 Legacy Encounter - Labs HISTORICAL CONVERSION [place] [address], [place] [address] ProviderYoav MD [facility] [place] [address] Social History Tobacco Use Types Packs/Day Years [...]
--- OUTSIDE RECORDS SUMMARY | 2024-08-05 10:12 | XMS_ITS | Patient Health Record ---
Author Organization [facility] Address [address] [place], [place] [id number] Care Team Providers Care Conductor Pullman Name Role Phone RAMON GA Primary Care Provider [phone] MALICK STANTON Unavailable [phone] ALLERGIES Allergen (clinical drug ingredient) Drug/Non Drug Allergy documented on EMR Reaction Allergy Type Onset Date Status Substance with sulfonamide structure and antibacterial mechanism of action (substance) Sulfa Antibiotics stomach upset Drug Allergy Active REASON FOR REFERRAL Reason please order Cologua rd for pt Diagnosis 1 Encounter for screen ing for malignant neoplasm of colon (Z12.11) Referral Organization [facility] Referring Provider First Name MALICK Referring Provider Last Name MAXIMINO Referring Provider Speciality Preventive Medicine Referred Organization [facility] Referred Address [address] [place], [id number], Referred Provider Specialty Diagnostic L aboratory General Notes JONO FULTON 09/22 09:49:16 AM >Order for Cologuard and demographics faxed to [email or web address] [phone]. Referral Priority Routine MEDICATIONS Medication SIG (Take, [...] Thre e times a Week Active Nystatin 500004 UNIT/GM 1 application Externally Twice a day [...] Tobacco use: nonsmoker Section Notes: Lives in [place], [place] alone . Patient is diabled. Lives in [place] alone . Patient is diabled. Lives in [place] alone . Patient is diabled. Lives in [place] alone . Patient is diabled. Lives in [place] alone . Patient is diabled. Lives in [place] alone . Patient is diabled. PROBLEMS Problem Type ICD Code Onset Dates Problem Status W/U Status Risk SNOMED Code Notes Problem Essential (primary) hypertension (I10) Active confirmed 00374179 Problem Other osteoporosis without current pathological fracture (M81.8) Active confirmed 45078567 Problem Proteinuria, unspecified (R80.9) Active confirmed 95173041 Problem Prediabetes (R73.03) Active confirmed 922959152 Problem Sjogren syndrome with inflammatory arthritis (M35.05) Active confirmed 65221423 Problem Iron deficiency anemia, unspecified iron deficiency anemia type (D50.9) Active confirmed 51203442 Problem Elevated high sensitivity C-reactive protein (R79.82) Active confirmed 413644787905492 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 56231531 Problem Obesity (BMI 30-39.9) (E66.9) Active confirmed 060923995 Problem Lupus (M32.9) Active confirmed 47073119 3 Problem Psoriatic arthritis (L40.50) Active confirmed 328318532 Problem Uncomplicated opioid dependence (F11.20) Active confirmed 80626112 VITAL SIGNS Heart Rate 81 /min 10/07/2023 Height-cm 163.83 cm 10/07/2023 Oximetry 97 % 10/07/2023 Blood pressure diastolic 82 mm Hg 10/07/2023 Weight-kg 88 kg 10/07/2023 Height 64.5 in 10/07/2023 Blood pressure systolic 146 mm Hg 10/07/2023 Weight 194.0 lbs 10/07/2023 BMI 32.78 kg/m2 10/07/2023 Encounters Encounter Location Date Provider Diagnosis [address] [id number] 10/07/20[facility]counter for genera l adult medical examination [...] C-reactive protein R79.82 and Beena infection B37.[address] [id number] 09/04/[address] [id number] 09/14/[address] [id number] 10/02/[address] [id number] 10/05/2023 MALICK STANTON ASSESSMENTS Encounter Date Diagnosis Assessment Notes Treatment [...] after pt stabalized with rheumatology Referral to procedures tech as well 10/07/2023 Other osteoporosis without current [...] PANEL, STANDARD (7600) 04/07/2023 COMPREHENSIVE METABOLIC PANEL (19390) CBC (H/H, RBC, INDICES, WBC, PLT) (1759) 04/07/2023 CARDIO IQ(R) HS CRP (36200) 04/07/2023 HEMOGLOBIN A1c (496) 04/07/2023 INSULIN (561) 04/07/2023 Insurance Providers Payer Name Payer Address Payer Phone Subscriber Number Group Number Insured Name Patient Relationship to Insured Coverage Start Date Coverage End Date [facility] Medicare Advantag e [address] [address] [place], [place] [id number] CHINTAN FAN Self - patient is the insured [facility] [address] [place] [address] [phone] [id number] CHINTAN FAN Self - patient is the insured MEDICAL (GENERAL) HISTORY Medical History History ICD Code Lupus Psoriatic Arthritis Philipp's Disease Sjogren's Syndrome Hypertension Chicken Pox Shingles Surgical History Surgery Date(Month/Year) Bi lateral ankle surgery 2018 Tonsillectomy [place] Teeth removal Hospitalization History Reason Date(Month/Year) B-lateral ankle surgery 2018
--- OUTSIDE RECORDS SUMMARY | 2024-08-05 10:12 | XMS_ITS | Encounter Summary ---
Author Organization [facility] Address [address] [place] [address] Phone Care Team Providers Care Welding Machine Operator Electron Beam Name Role Phone Unavailable Primary Care Provider Unavailabl e Encounter Details Date Type Department Care Team (Late st Contact Info) Description 05/04/2006 Legacy Encounter - Labs HISTORICAL CONVERSION [place] [address], [place] [address] ProviderYoav MD [facility] [address] Social History Tobacco Use Types Packs/Day Years [...] LAB RESULT SCAN PROCEDURE 05/04/2006 12:00 AM RETANNED LEATHER ROLLER documented in this encounter Results * DPS CONVERSION - LAB RESULT SCAN PROCEDURE (05/04/2006 12:00 AM RETANNED LEATHER ROLLER) Narrative 05/04/2006 12:00 AM RETANNED LEATHER ROLLER Ordered by an unspecified provider. Historical Provider LAB BLOOD ORDERAB LES documented in this encounter Visit Diagnoses Not on filedocumented in this encounter
--- OUTSIDE RECORDS SUMMARY | 2024-08-05 10:12 | XMS_ITS | Encounter Summary ---
Author Organization [facility] Address [address] [place] [address] Phone Care Team Providers Care Chemistry Instructor Name Role Phone Unavailable Primary Care Provider Unavailabl e Encounter Details Date Type Department Care Team (Late st Contact Info) Description 07/28/2006 Legacy Encounter - Labs HISTORICAL CONVERSION [place] [address], [place] [address] ProviderYoav MD [address] [place] [address] Social History Tobacco Use Types Packs/Day Years [...] LAB RESULT SCAN PROCEDURE 07/28/2006 12:00 AM SOFTWARE SALES REPRESENTATIVE DPS CONVERSION - LAB RESULT SCAN PROCEDURE 07/28/2006 12:00 AM SOFTWARE SALES REPRESENTATIVE documented in this encounter Results * DPS CONVERSION - LAB RESULT SCAN PROCEDURE (07/28/2006 12:00 AM SOFTWARE SALES REPRESENTATIVE) Narrative 07/28/2006 12:00 AM SOFTWARE SALES REPRESENTATIVE Ordered by an unspecified provider. Historical Provider LAB BLOOD ORDERAB LES * DPS CONVERSION - LAB RESULT SCAN PROCEDURE (07/28/2006 12:00 AM SOFTWARE SALES REPRESENTATIVE) Narrative 07/28/2006 12:00 AM SOFTWARE SALES REPRESENTATIVE Ordered by an unspecified provider. Historical Provider LAB BLOOD ORDERAB LES documented in this encounter Visit Diagnoses Not on filedocumented in this encounter
== END 2024-08-05 09:40 | disposition home or self-care (01) ==
LOC: HO.HCC 09:21
PROVIDERS: PCP Nurse Practitioner Family; Visit Provider Nurse Practitioner Psychiatric/Mental Health
DX: F11.20 Opioid dependence, uncomplicated (principal)
CPT/HCPCS: 99213

== ENCOUNTER → 2024-08-05 09:20 | Outpatient (BNVA) | payer MEDICARE, MEDICAID, SELFPAY | PROVIDERS: PCP Nurse Practitioner Family; Visit Provider Nurse Practitioner Psychiatric/Mental Health | DX: F11.20 Opioid dependence, uncomplicated (principal) ==

== ENCOUNTER 2024-08-19 14:34 | Outpatient (REF) | payer MEDICARE, MEDICAID, SELFPAY ==
[2024-08-19 15:25] LABS: Appearance Urine Clear; Color Urine Yellow; Glucose Urine UA Negative (Negative); Leukocyte Esterase Urine Negative (Negative); Nitrite Urine Negative (Negative); PH 5.5 (5.0-9.0); Specific Gravity - Urine >= 1.030 (1.005-1.025); UMIC TRIGGER UACC YES; Urine Blood Negative (Negative); Urine Ketones Negative (Negative); Urine Protein 30 (1+) mg/dL (Neg-Trace)
[2024-08-19 15:36] LABS: Bacteria Urine Trace (None Seen); Hyaline Casts Urine 0-2 /LPF (0-2); RBC Urine 0-2 /HPF (0-2); Squamous Epithelial Cell Urine 0-2 /HPF (0-2); WBC Urine 0-5 /HPF (0-5)
[2024-08-19 16:06] LABS: Anion Gap 11 (12-20); Blood Urea Nitrogen 18 mg/dL (9-16); Calcium 8.8 mg/dL (8.4-10.2); Carbon Dioxide 28 mmol/L (22-29); Chloride 107 mmol/L (96-108); Cholesterol 165 mg/dL (<200); Estimated Glomerular Filt Rate > 60; Glucose Random 112 mg/dL (60-115); HDL Cholesterol 61 mg/dL (>40); LDL Cholesterol Calculated 89 mg/dL (<100); Potassium 4.4 mmol/L (3.3-5.1); Sodium 142 mmol/L (135-145); Triglycerides 78 mg/dL (<150)
[2024-08-19 16:29] LABS: TSH reflex Free T4 7.07 uIU/mL (0.32-4.0); Vitamin D 25-OH Total 31.2 ng/mL (>30)
[2024-08-19 16:32] LABS: Creatinine Urine 332.02 mg/dL; Microalbum/Creatinine Ratio Ur 6.9 ug/mg cr (<30)
[2024-08-19 17:25] LABS: Free T4 (Free Thyroxine) 0.99 ng/dL (0.71-1.85)
== END 2024-08-19 14:35 | disposition home or self-care (01) ==
LOC: HO.LAB 14:34
PROVIDERS: Student in an Organized Health Care Education/Training Program; PCP Nurse Practitioner Family; Visit Provider Nurse Practitioner Family
DX: Z00.00 Encounter for general adult medical examination without abnormal findings (principal); E03.9 Hypothyroidism, unspecified; M80.0 Age-related osteoporosis with current pathological fracture
CPT/HCPCS: 36415; 80048; 80061; 81001; 82043; 82306; 82570; 84439; 84443

== ENCOUNTER 2024-08-22 10:16 | Outpatient (AMB) | payer MEDICARE, MEDICAID, SELFPAY ==
--- NOTE | 2024-08-22 10:19 | MHC.PC.OV ---
Vital Signs 08/22/24 10:25 Height 5 ft 5 in Weight 190 lb BMI 31.6 BP 132/67 Blood Pressure Location Rt brachial Position Sitting Respiration 16 Pulse 71 Pulse Source Pulse Oximeter Temp 98.5 F Temp Source Oral Pulse Oximetry (%) 96 Oxygen Delivery Method Room Air Intake Visit Reasons: CPE Intake Note: patient here for CPE Founder Chairman And Chief Creative Officer Required: No Is last menstrual period known: No Post menopausal: No Patient : No Allergies sulfa Allergy (Mild, Uncoded 08/22/24 10:35) Hives Medication List - Last Reconciled 08/22/24 by Sunni Browne CNP apremilast 30 mg PO BID apremilast (Otezla Starter) orally; Initial: 10 mg in the morning on day 1. Day 2: 10 mg twice daily; Day 3: 10 mg in the morning and 20 mg in the evening; Day 4: 20 mg twice daily; Day 5: 20 mg in the morning and 30 mg in the evening. Maintenance dose: 30 mg twice daily starting on day 6. biotin 10 mg PO DAILY 30 days buprenorphine-naloxone 2-0.5 mg (Suboxone) 1 film sublingual TID cholecalciferol (vitamin D3) (Vitamin D3) 125 mcg PO DAILY 90 days cyanocobalamin (vitamin B-12) (Vitamin B-12) 2,500 mcg sublingual DAILY 30 days diclofenac epolamine 1.3% (Flector) 1 patch transdermal .qd 30 days duloxetine (Cymbalta) 60 mg PO DAILY 30 days gabapentin 300 mg PO TID 30 days hydroxychloroquine 200 mg PO BID levothyroxine 137 mcg PO DAILY 30 days lidocaine 5% 2 patches topical DAILY meloxicam 7.5 mg PO BID metoprolol succinate ER 25 mg PO BID 30 days omeprazole 20 mg PO DAILY 90 days Taltz Autoinjector (ixekizumab) 80 mg subcut Q4W NS tizanidine 2 mg PO Q8H PRN 30 days trazodone 150 mg PO BEDTIME PRN Tobacco use date assessed: 08/22/24 Dental Screening Dental Screen Date: 08/22/24 Did you have a dental visit in the last 12 months?: Yes Did you have a dental problem in the last 6 months where you did not have access to dental care?: No Was dental information given to patient?: Patient has dentist HPI HPI Comments History of Present Illness Details 58-year-old female presents for an extended physical exam. She admits to taking her medications as prescribed without adverse reactions. She notes that she was instructed to stop taking ferrous sulfate by Hematology/Oncology. Acute issue(s) - HTN. She is on metoprolol succinate 25 mg twice daily - Acid reflux. She is on omeprazole 20 mg daily - Chronic low back pain. She takes meloxicam 7.5 mg daily, tizanidine 2mg PRN, lidocadine patches daily, flector pacth daily, and tylenol as needed - Neuropathy both feet. She is on gabapentin 300 mg three times daily and duloxetine 60 mg daily - Insomnia. She is on trazadone 150 mg daily - Hashimotor thyroiditis. She takes levothyroxine 137 mcg daily - Discoid lupus. She is on hydroxychloroquine 200 mg twice daily - Psoriatic arthritis. She is on Ixekizumab 80 mg SC Q4W, apremilast 30 mg twice daily - Opioid dependence. She is on Suboxone 1 film SL 3 times daily Past Medical History - Hypertension, hypothyroidism, Philipp thyroiditis, acid reflux, lumbar spondylosis, chronic low back pain, neuropathy both feet, psoriatic arthritis, iron deficiency anemia, osteoporosis, Raynaud disease, insomnia, shingles, discoid lupus, sjogren syndrome with keratoconjunctivitis, long-term current use of immunosuppressive drug, cataract both eye (h/o cataract sugery OU), anxiety, depression Social History - Nonsmoker. Does not vape. Does not drink alcohol. Denies recreational drug use - Has been making healthy dietary choices. Exercises routinely. She has difficulty maintaining sleep due to chronic back pain and sleeps an average of 6 hours Health maintenance - Last eye exam was in 05/2024. She will sign a release for her PCP to obtain her ophthalmology record - Last dental visit was last week. - Last tetanus vaccine was more than 10 years ago; received Tdap vaccine today - She notes that she is up-to-date on the flu vaccine - She notes that she is up-to-date on the PNA vaccines. Record not available - She has not been vaccinated for shingles. Encouraged to get vaccinated for shingles at the local pharmacy - Last pap smear test was in 11/2021 in [place]. Refer to [facility] heel brusher for a pap smear text - Last mammogram was in 09/18/2023: Negative - She has never had a colonoscopy. Referred to [facility] gastroenterology for a colonoscopy - Last dexa scan was in 07/18/2022: Normal. Dexa scan ordered Specialists [facility] Rheumatology [facility] Medical History (Updated 08/22/24 @ 11:14 by Sunni Browne CNP) alf current use of immunosuppressive drug Chronic low back pain Discoid lupus Thyroid disease Raynaud disease Neuropathy Arthritis Anemia Philipp thyroiditis, fibrous variant Polyarticular arthritis Hypertension Osteopenia of both ankles Surgical History History of ankle surgery History of tonsillectomy History of knee replacement Family History Paternal Grandfather Rheumatoid arthritis Lupus Father ALS (amyotrophic lateral sclerosis) Mother Macular degeneration Social History Household Members: None Housing: Apartment Alcohol intake: never Patient Tobacco Use Status: Never used Tobacco e-Cigarette/Vaping Use: Never Used Second Hand Smoke Exposure: No service: No Current occupational status: disabled Cognitive needs: No Hearing needs: No Vision needs: No Questionnaire PHQ-9 Over the last 2 weeks, how often have you been bothered by any of the following problems? 1. Little interest or pleasure in doing things: not at all 2. Feeling down, depressed, or hopeless: not at all 3. Trouble falling or staying asleep, or sleeping too much: not at all 4. Feeling tired or having little energy: not at all 5. Poor appetite or overeating: not at all 7. Trouble concentrating on things, such as reading the newspaper or watching television: not at all 8. Moving or speaking so slowly that other people could have noticed. Or the opposite - being so fidgety or restless that you have been moving around a lot more than usual: not at all 9. Thoughts that you would be better off or of hurting yourself in some way: not at all Depression Screening Interpretation: Negative Depression Screening Done: Yes 92120 - PHQ-9 Billing: Yes Source: Developed by Drs. Corby L. RomePorsha maya, Jose Harrell and colleagues, with an educational fausto from [employer]. Thrive Questionnaire Date Thrive assessed: 08/22/24 I am a: Patient What is your living situation today?: I have a steady place to live Within the past 12 months, did the food you bought not last and you didn't have the money to get more?: Never true Within the past 12 months, did you worry whether your food would run out before you got money to buy more?: Never true Do you have trouble paying for medicines?: No Do you have trouble getting transportation to medical appointments?: No Do you have trouble paying your heating and electricity bill?: No Do you have trouble taking care of your child, family member or friend?: No Do you have trouble with day-to-day activities such as bathing, preparing meals, shopping, managing finances, etc.?: No Are you currently unemployed and looking for a job?: No Are you interested in more education?: I choose not to answer this question Please select the resources that you would like help with: None Currently or been in a relationship where the following occur: I choose not to answer THRIVE Score: 0 AUDIT C Alcohol Use Questionnaire (AUDIT-C) 1. How often do you have a drink containing alcohol?: Never Total Score: 0 Score Reviewed/Action Taken: Yes LATRICIA-7 AMB Questionnaire LATRICIA-7 Date LATRICIA - 7 assessed: 08/22/24 Feeling nervous, anxious, or on edge: 0 = Not at all Not being able to stop or control worryin = Not at all Worrying too much about different things: 0 = Not at all Trouble relaxin = Not at all Being so restless that it is hard to sit still: 0 = Not at all Becoming easily annoyed or irritable: 0 = Not at all Feeling afraid as if something awful might happen: 0 = Not at all Total LATRICIA-7 score (0-4 normal; 5-9 mild; 10-14 moderate; 15-21 severe): 0 Source: Developed by Porsha Ortiz Kurt Kroenke and colleagues, with an educational fausto from [employer]. LATRICIA-7 Assessment Billing LATRICIA-7 Assessment Tool: LATRICIA-7 Assessment 95231 Review of Systems Const Details: Denies chills, Denies fatigue, Denies fever(s), Denies headache(s) and Denies weakness HEENT Denies change in vision, Denies dizziness, Denies headache(s), Denies hearing loss, Denies nasal congestion, Denies sinus pain, Denies sinus pressure and Denies sore throat Card Denies chest pain, Denies lightheadedness, Denies dyspnea and Denies other (palpitations) Resp Denies cough, Denies dyspnea and Denies wheezing GI Denies abdominal pain, Denies melena, Denies hematochezia, Denies change in bowel habits, Denies dyspepsia and Denies nausea Denies hematuria and Denies dysuria Musc Reports as per HPI Skin/Breast Denies rash, Denies unusual bruising and Denies wounds Neuro Denies abnormal gait, Denies dizziness, Denies headache(s), Denies memory loss, Denies numbness, Denies Sensory deficit (Neuro), Denies tingling and Denies weakness Psych Denies anxiety, Denies depression and Denies memory loss Endo Denies cold intolerance, Denies fatigue, Denies heat intolerance, Denies polydipsia and Denies polyuria Sina/Lymph Denies easy bleeding and Denies easy bruising Aller/Immun Denies wheezing Physical exam (Primary Care) Vital Signs: Last Vital Signs Temp 98.5 F 08/22/24 10:25 Pulse 71 08/22/24 10:25 Resp 16 08/22/24 10:25 BP 132/67 08/22/24 10:25 Pulse Ox 96 08/22/24 10:25 Oxygen Delivery Method Room Air 08/22/24 10:25 BMI result Body Mass Index 31.6 Tobacco/Smoking Status: Tobacco use Status Tobacco use date assessed 08/22/24 08/22/24 10:27 Patient Tobacco Use Status Never used Tobacco 08/22/24 10:22 e-Cigarette/Vaping Use Never Used 08/22/24 10:22 PHQ-9: PHQ-9 Score PHQ-9: Total score 0 08/22/24 10:22 Depression Screening Interpretation: Negative Thrive Assessment: Date of Thrive Assessment Date Thrive assessed 08/22/24 08/22/24 10:22 Currently or been in a relationship where the following occur: I choose not to answer Const Other: General: no acute distress, well developed, alert and awake Nutritional Appearance: well nourished Orientation/consciousness: patient oriented x3 [facility] Head: Yes normocephalic and Yes atraumatic Ears: hearing grossly normal bilaterally and TM's normal bilaterally General nose exam: Normal external nose present and Normal nares present Mouth: Normal oral and palatal mucosa present and moist mucous membranes Teeth and gingiva: dentition normal Throat: Yes oropharynx normal Eyes Pupils: Equal, round and reactive pupils present and Pupil accommodation reflex normal EOM: EOMs intact bilaterally Neck Neck: Yes normal visual inspection, Yes no lymphadenopathy and Yes trachea midline Thyroid: Thyroid normal Carotids: no bruits Lymphatic: no lymphadenopathy noted Chest Chest palpation & inspection: normal inspection of the chest Resp Effort & Inspection: normal respiratory effort Auscultation: clear to auscultation bilaterally Cardio Rate: regular rate Rhythm: regular rhythm Heart sounds: S1 normal heart sound present, S2 normal heart sound present, no gallops, no murmurs and no rubs Bruits: no abdominal aortic bruits and no carotid bruits GI Palpation (GI): No Abdominal aortic bruit present, Soft to palpation, nontender, No hepatosplenomegaly present and No Rebound tenderness present Auscultation: normal bowel sounds General: Yes no CVA tenderness Back/Spine/Pelvis Back: no CVA tenderness Cervical Spine: cervical ROM normal and No Cervical spine tenderness Thoracic/Lumbar Spine: thoraco-lumbar ROM normal, No pain with thoraco-lumbar ROM, No thoracic spinal tenderness and positive lumbar spinal tenderness Skin General: warm and dry. Normal skin color. Normal skin turgor Lesions: no lesions Rashes: no rashes Trauma: no lacerations or abrasions Wounds: no wounds Nails: normal Neuro General: patient oriented x3, gait normal and CN's II-XI intact bilaterally Cranial nerves: Yes Equal, round and reactive pupils present Cognition (Neuro): normal cognition Gait exam (Neuro): Normal gait present Motor exam (neuro): 5/5 motor strength present throughout Sensory Exam: No Sensory deficit (Neuro) Deep tendon reflexes (DTR's): Right patellar reflex intensity grade: 2+ and Left patellar reflex intensity grade: 2+ Extrem General: Yes normal to inspection, No edema and No calf tenderness Psych Appearance: grossly normal Affect: normal affect Attitude: cooperative Thought process: Normal thought process present Immunizations Boostrix Tdap 2.5 Lf unit-8 mcg-5 Lf/0.5 mL intramuscular syringe Performing Provider: Sunni Browne CNP Performing Location: [facility] Administered by: Tejas Razo RN on 08/22/24 11:18 Dose Route Admin Location Dispensed Lot Number Expiration Date NDC Registered Nurse Cardiovascular Icu 0.5 mL IM Left Deltoid 0.5 mL [id number] 08/13/26 90935-025-50 [employer] VIS Given Date VIS Provided VIS Publication Date 08/22/24 Single Vaccine 20 Eligibility Eligibility Date Funding Source Not [facility] Eligible 08/22/24 Private Coding Level of Care Code Est Pt Level 3 (07249) Est Pt Prev Care 40-64y(88399) Diagnoses Normal physical examination, routine Z00.00 Chronic midline low back pain, unspecified whether sciatica present M54.50; G89.29 Back pain laterality: midline Sciatica presence: unspecified whether sciatica present Hypothyroidism E03.9 Primary hypertension I10 Hypertension type: primary hypertension Iron deficiency anemia D50.9 Additional Codes LATRICIA-7 Assessment Billing - LATRICIA-7 Assessment Tool: LATRICIA-7 Assessment 48362 ([id number]) PHQ-9 - 56159 - PHQ-9 Billing: Yes ([id number]) Assessment & Plan Assessment & Plan (1) Normal physical examination, routine: Code(s): Z00.00 - Encounter for general adult medical examination without abnormal findings Category: Medical Plan: No significant functional limitation noted. Healthy diet and routine exercise encouraged. Verbalized understanding and agreed with the plan. (2) Chronic low back pain: Code(s): M54.50 - Low back pain, unspecified; G89.29 - Other chronic pain Category: Medical Qualifiers: Back pain laterality: midline Sciatica presence: unspecified whether sciatica present Qualified Code(s): M54.50 - Low back pain, unspecified; G89.29 - Other chronic pain Plan: Reports chronic low back pain. Lumbar spine tenderness to palpation. Continue current treatment regimen. Warm/cool compresses encouraged. Follow-up with worsening or new symptoms. Verbalized understanding and agreed with treatment plan. (3) Hypothyroidism: Code(s): E03.9 - Hypothyroidism, unspecified Category: Medical Plan: Recent TSH is slightly elevated, 7.07, free T4 is normal. Will increase levothyroxine to 150 mcg daily; advised to take as prescribed. Perform TSH/T4 blood work 2-3 days before next visit. Follow-up in 6 weeks or sooner with symptoms or concerns. Verbalized understanding and agreed with treatment plan. (4) Hypertension: Code(s): I10 - Essential (primary) hypertension Category: Medical Qualifiers: Hypertension type: primary hypertension Qualified Code(s): I10 - Essential (primary) hypertension Plan: Blood pressure is 132/67, within goal of less than 140/90. Continue current treatment regimen. Will continue to monitor. Verbalized understanding and agreed with the plan. (5) Iron deficiency anemia: Code(s): D50.9 - Iron deficiency anemia, unspecified Category: Medical Plan: She notes that she was instructed to stop taking ferrous sulfate by Hematology/Oncology. Review of hematology/oncology note in June 2024 recommended for the patient to continue to take ferrous sulfate and vitamin-C as prescribed and follow-up in 6 months; patient informed and notes she was start taking ferrous sulfate. She has been taking vitamin-C. Continue to take ferrous sulfate and vitamin-C as prescribed. Follow-up with Hematology/Oncology as planned. Verbalized understanding and agreed with treatment plan. Orders: Orders XR DEXA axial skeleton Today M81.0 - Age-related osteoporosis without current pathological fracture TDaP Immunization Today Z23 - Encounter for immunization Referrals Gastroenterology Referral Z12.11 - Encounter for screening for malignant neoplasm of colon ION EXCHANGE OPERATOR Referral Z12.4 - Encounter for screening for malignant neoplasm of cervix Medications: New levothyroxine 150 mcg PO DAILY 30 days 30 tabs 3RF Refilled ferrous sulfate 325 mg PO DAILY 30 days 30 tabs 3RF Discontinued levothyroxine Discontinued Reason: Doctor's Order 137 mcg PO DAILY 30 days 30 tabs 3RF
[2024-08-22 10:25] VITALS: BP 132/67; PULSE 71; RESP 16; TEMP 36.9; O2SAT 96; BMI 31.6
--- OUTSIDE RECORDS SUMMARY | 2024-08-22 11:28 | XMS_ITS | Clinical Summary ---
Author Organization [facility] Address [address] [place] [phone] Phone Care Team Providers Care Medical Typist Name Role Phone Unavailable Primary Care Provider [...] Active -Hx Entry 03/27/2015 Active HYDROcodone-acetami nophen (Eldridge) 10-325 MG per tablet Eldridge( 10-325MG Oral 1 as needed ) Active [...] Comments Blood Pressure 122/74 03/27/2015 12:01 AM AUTOMOTIVE PARTS COUNTER PERSON Pulse 80 03/27/2015 12:01 AM AUTOMOTIVE PARTS COUNTER PERSON Temperature - - Respiratory Rate - - Oxygen Saturation - - Inhaled Oxygen Concentration - - Weight 68.9 kg (152 lb) 03/27/2015 12:01 AM AUTOMOTIVE PARTS COUNTER PERSON Height 162.6 cm (5' 4 ) 03/27/2015 12:01 AM AUTOMOTIVE PARTS COUNTER PERSON Body Mass Index 26.09 03/27/2015 12:01 AM AUTOMOTIVE PARTS COUNTER PERSON Plan of Treatment Not on file
--- OUTSIDE RECORDS SUMMARY | 2024-08-22 11:28 | XMS_ITS | Encounter Summary ---
Author Organization [facility] Address [address] [place] [phone] Phone Care Team Providers Care Invas Tech Name Role Phone Unavailable Primary Care Provider Unavailabl e Encounter Details Date Type Department Care Team (Late st Contact Info) Description 01/18/2014 Legacy Encounter - Labs HISTORICAL CONVERSION [place] [phone], [place] [address] ProviderYoav MD [address] [place] [phone] Social History Tobacco Use Types Packs/Day Years [...]
--- OUTSIDE RECORDS SUMMARY | 2024-08-22 11:28 | XMS_ITS | Encounter Summary ---
Author Organization [facility] Address [address] [place] [address] Phone Care Team Providers Care Clinical Application Specialist Name Role Phone Unavailable Primary Care Provider Unavailabl e Encounter Details Date Type Department Care Team (Late st Contact Info) Description 07/06/2009 Abstract HISTORICAL CONVERSION [place] [phone] ProviderYoav MD [facility] [place] [phone] Social History Tobacco Use Types Packs/Day Years [...]
--- OUTSIDE RECORDS SUMMARY | 2024-08-22 11:28 | XMS_ITS | Encounter Summary ---
Author Organization [facility] Address [address] [place] [phone] Phone Care Team Providers Care Care Mgr Name Role Phone Unavailable Primary Care Provider Unavailabl e Encounter Details Date Type Department Care Team (Late st Contact Info) Description 12/24/2012 Legacy Encounter - Labs HISTORICAL CONVERSION [place] [phone], [place] [address] ProviderYoav MD [facility] [place] [address] Social History Tobacco Use Types Packs/Day Years [...]
--- OUTSIDE RECORDS SUMMARY | 2024-08-22 11:28 | XMS_ITS | Encounter Summary ---
Author Organization [facility] Address [address] [place] [phone] Phone Care Team Providers Care Tire Trimmer Hand Name Role Phone Unavailable Primary Care Provider Unavailabl e Encounter Details Date Type Department Care Team (Late st Contact Info) Description 06/11/2011 Legacy Encounter - Labs HISTORICAL CONVERSION [place] [phone], [place] [address] ProviderYoav MD [facility] [place] [phone] Social History Tobacco Use Types Packs/Day Years [...] LAB RESULT SCAN PROCEDURE 06/11/2011 12:00 AM LANDSCAPE PHOTOGRAPHER documented in this encounter Results * DPS CONVERSION - LAB RESULT SCAN PROCEDURE (06/11/2011 12:00 AM LANDSCAPE PHOTOGRAPHER) Narrative 06/11/2011 12:00 AM LANDSCAPE PHOTOGRAPHER Ordered by an unspecified provider. Historical Provider LAB BLOOD ORDERAB LES documented in this encounter Visit Diagnoses Not on filedocumented in this encounter
--- OUTSIDE RECORDS SUMMARY | 2024-08-22 11:28 | XMS_ITS | Encounter Summary ---
Author Organization [facility] Address [address] [place] [address] Phone Care Team Providers Care Linen Attendant Name Role Phone Unavailable Primary Care Provider Unavailabl e Encounter Details Date Type Department Care Team (Late st Contact Info) Description 01/20/2013 Legacy Encounter - Labs HISTORICAL CONVERSION [place] [phone], [place] [address] ProviderYoav MD [facility] [place] [address] Social History Tobacco Use Types Packs/Day Years [...]
--- OUTSIDE RECORDS SUMMARY | 2024-08-22 11:28 | XMS_ITS | Encounter Summary ---
Author Organization [facility] Address [address] [place] [phone] Phone Care Team Providers Care Telecommunication Lines Repairer Name Role Phone Unavailable Primary Care Provider Unavailabl e Encounter Details Date Type Department Care Team (Late st Contact Info) Description 09/01/2012 Legacy Encounter - Labs HISTORICAL CONVERSION [place] [phone], [place] [address] ProviderYoav MD [facility] [place] [address] Social History Tobacco Use Types Packs/Day Years [...]
--- OUTSIDE RECORDS SUMMARY | 2024-08-22 11:28 | XMS_ITS ---
Author Organization [facility], [facility] Address [address] [place] [phone] Care Team Providers Care Desk Top Publisher Name Role Phone HARMEETCHINORAMON Primary Care Provider [phone] MALICK FAULKNER Unavailable [phone] REASON FOR VISIT Rx Change MEDICATIONS Medication SIG (Take, Route, Frequency, Duration) Notes Start Date End Date Status Metoprolol Succinate 50 MG 1 capsule Ora lly Once a day for 90 days 10/06/2023 Active Encounters Encounter Location Date Provider Diagnosis [address] [phone] 10/05/2023 MALICK STANTON PLAN OF TREATMENT Medication Medication Name Sig Start Date Stop Date Notes Metoprolol Succinate 25 MG 1 capsule Orally twice a day Metoprolol Succinate 50 MG 1 capsule Ora lly Once a day for 90 days 10/06/2023 Progress Notes * BLANCA FANALEJANDROOB: 5 (57 yo F)Acc No.[id number]:10/05/2023 Patient:??CHINTAN FAN :1965?Age:57 Y?Sex:Fe male Phone: Address:[address] [place] [address], [address], [place] [address] * Refills?? Stop Metoprolol Succinate Capsule ER 24 Hour Sprinkle, 25 MG, Orally, 1 capsule, twice a day Start Metoprolol Succinate Capsule ER 24 Hour Sprinkle, 50 MG, Orally, 90 Capsule, 1 capsule, Once a day, 90 days, Refills=5 * true * Date:??
--- OUTSIDE RECORDS SUMMARY | 2024-08-22 11:28 | XMS_ITS | Encounter Summary ---
Author Organization [facility] Address [address] [place] [phone] Phone Care Team Providers Care Nuisance Animal Damage Control Agent Name Role Phone Unavailable Primary Care Provider Unavailabl e Encounter Details Date Type Department Care Team (Late st Contact Info) Description 11/01/2013 Abstract HISTORICAL CONVERSION [place] [phone] ProviderYoav MD [facility] [place] [phone] Social History Tobacco Use Types Packs/Day Years [...]
--- OUTSIDE RECORDS SUMMARY | 2024-08-22 11:28 | XMS_ITS | Encounter Summary ---
Author Organization [facility] Address [address] [place] [address] Phone Care Team Providers Care Skiff Operator Name Role Phone Unavailable Primary Care Provider Unavailabl e Encounter Details Date Type Department Care Team (Late st Contact Info) Description 06/14/2012 Legacy Encounter - Labs HISTORICAL CONVERSION [place] [phone], [place] [address] ProviderYoav MD [facility] [place] [phone] Social History Tobacco Use Types Packs/Day Years [...] LAB RESULT SCAN PROCEDURE 06/14/2012 12:00 AM OLERICULTURIST documented in this encounter Results * DPS CONVERSION - LAB RESULT SCAN PROCEDURE (06/14/2012 12:00 AM OLERICULTURIST) Narrative 06/14/2012 12:00 AM OLERICULTURIST Ordered by an unspecified provider. Historical Provider LAB BLOOD ORDERAB LES documented in this encounter Visit Diagnoses Not on filedocumented in this encounter
--- OUTSIDE RECORDS SUMMARY | 2024-08-22 11:28 | XMS_ITS | Encounter Summary ---
Author Organization [facility] Address [address] [place] [address] Phone Care Team Providers Care Cutch Cleaner Name Role Phone Unavailable Primary Care Provider Unavailabl e Encounter Details Date Type Department Care Team (Late st Contact Info) Description 09/12/2010 Legacy Encounter - Labs HISTORICAL CONVERSION [place] [phone], [place] [address] ProviderYoav MD [address] [place] [address] Social History Tobacco Use Types Packs/Day Years [...]
--- OUTSIDE RECORDS SUMMARY | 2024-08-22 11:28 | XMS_ITS | Encounter Summary ---
Author Organization [facility] Address [address] [place] [address] Phone Care Team Providers Care Network Engineering Advisor Name Role Phone Unavailable Primary Care Provider Unavailabl e Encounter Details Date Type Department Care Team (Late st Contact Info) Description 08/07/2012 Legacy Encounter - Labs HISTORICAL CONVERSION [place] [phone], [place] [address] ProviderYoav MD [facility] [place] [address] Social History Tobacco Use Types Packs/Day Years [...]
--- OUTSIDE RECORDS SUMMARY | 2024-08-22 11:28 | XMS_ITS | Encounter Summary ---
Author Organization [facility] Address [address] [place] [address] Phone Care Team Providers Care Director Post Name Role Phone Unavailable Primary Care Provider Unavailabl e Encounter Details Date Type Department Care Team (Late st Contact Info) Description 10/29/2013 Legacy Encounter - Labs HISTORICAL CONVERSION [place] [phone], [place] [address] ProviderYoav MD [address] [place] [address] Social History Tobacco Use Types Packs/Day Years [...]
--- OUTSIDE RECORDS SUMMARY | 2024-08-22 11:28 | XMS_ITS | Encounter Summary ---
Author Organization [facility] Address [address] [place] [address] Phone Care Team Providers Care Network Support Engineer Name Role Phone Unavailable Primary Care Provider Unavailabl e Encounter Details Date Type Department Care Team (Late st Contact Info) Description 03/01/2012 Legacy Encounter - Labs HISTORICAL CONVERSION [place] [phone], [place] [address] ProviderYoav MD [facility] [place] [address] Social History Tobacco Use Types Packs/Day Years [...]
--- OUTSIDE RECORDS SUMMARY | 2024-08-22 11:28 | XMS_ITS | Encounter Summary ---
Author Organization [facility] Address [address] [place] [address] Phone Care Team Providers Care Fire Behavior Analyst Name Role Phone Unavailable Primary Care Provider Unavailabl e Encounter Details Date Type Department Care Team (Late st Contact Info) Description 11/19/2009 Legacy Encounter - Labs HISTORICAL CONVERSION [place] [phone], [place] [address] ProviderYoav MD [facility] [place] [address] Social History Tobacco Use Types Packs/Day Years [...]
--- OUTSIDE RECORDS SUMMARY | 2024-08-22 11:28 | XMS_ITS | Encounter Summary ---
Author Organization [facility] Address [address] [place] [address] Phone Care Team Providers Care Rubber Goods Inspector Name Role Phone Unavailable Primary Care Provider Unavailabl e Encounter Details Date Type Department Care Team (Late st Contact Info) Description 06/29/2012 Legacy Encounter - Labs HISTORICAL CONVERSION [place] [phone], [place] [address] ProviderYoav MD [facility] [place] [address] Social History Tobacco Use Types Packs/Day Years [...] LAB RESULT SCAN PROCEDURE 06/29/2012 12:00 AM TRAFFIC AGENT documented in this encounter Results * DPS CONVERSION - LAB RESULT SCAN PROCEDURE (06/29/2012 12:00 AM TRAFFIC AGENT) Narrative 06/29/2012 12:00 AM TRAFFIC AGENT Ordered by an unspecified provider. Historical Provider LAB BLOOD ORDERAB LES documented in this encounter Visit Diagnoses Not on filedocumented in this encounter
--- OUTSIDE RECORDS SUMMARY | 2024-08-22 11:28 | XMS_ITS | Encounter Summary ---
Author Organization [facility] Address [address] [place] [address] Phone Care Team Providers Care Trail Construction Worker Name Role Phone Unavailable Primary Care Provider Unavailabl e Encounter Details Date Type Department Care Team (Late st Contact Info) Description 02/13/2014 Legacy Encounter - Labs HISTORICAL CONVERSION [place] [phone], [place] [address] ProviderYoav MD [facility] [place] [address] Social History Tobacco Use Types Packs/Day Years [...]
--- OUTSIDE RECORDS SUMMARY | 2024-08-22 11:28 | XMS_ITS | Encounter Summary ---
Author Organization [facility] Address [address] [place] [address] Phone Care Team Providers Care Cutter Head Sharpener Name Role Phone Unavailable Primary Care Provider Unavailabl e Encounter Details Date Type Department Care Team (Late st Contact Info) Description 03/09/2014 Legacy Encounter - Labs HISTORICAL CONVERSION [place] [phone], [place] [address] ProviderYoav MD [facility] [place] [address] Social History Tobacco Use Types Packs/Day Years [...]
--- OUTSIDE RECORDS SUMMARY | 2024-08-22 11:28 | XMS_ITS | Encounter Summary ---
Author Organization [facility] Address [address] [place] [address] Phone Care Team Providers Care Electric Organ Inspector And Repairer Name Role Phone Unavailable Primary Care Provider Unavailabl e Encounter Details Date Type Department Care Team (Late st Contact Info) Description 09/13/2012 Legacy Encounter - Labs HISTORICAL CONVERSION [place] [phone], [place] [address] ProviderYoav MD [facility] [place] [address] Social History Tobacco Use Types Packs/Day Years [...]
--- OUTSIDE RECORDS SUMMARY | 2024-08-22 11:28 | XMS_ITS | Encounter Summary ---
Author Organization [facility] Address [address] [place] [address] Phone Care Team Providers Care Supplier Manager Name Role Phone Unavailable Primary Care Provider Unavailabl e Encounter Details Date Type Department Care Team (Late st Contact Info) Description 01/09/2014 Legacy Encounter - Labs HISTORICAL CONVERSION [place] [phone], [place] [address] ProviderYoav MD [address] [place] [address] Social History Tobacco Use Types Packs/Day Years [...]
--- OUTSIDE RECORDS SUMMARY | 2024-08-22 11:28 | XMS_ITS | Encounter Summary ---
Author Organization [facility] Address [address] [place] [address] Phone Care Team Providers Care Video Recorder Mechanic Name Role Phone Unavailable Primary Care Provider Unavailabl e Encounter Details Date Type Department Care Team (Late st Contact Info) Description 03/29/2009 Legacy Encounter - Labs HISTORICAL CONVERSION [place] [phone], [place] [address] ProviderYoav MD [facility] [place] [address] Social History Tobacco Use Types Packs/Day Years [...] LAB RESULT SCAN PROCEDURE 03/30/2009 12:00 AM STATISTICAL METHODS PROFESSOR DPS CONVERSION - LAB RESULT SCAN PROCEDURE 03/29/2009 12:00 AM STATISTICAL METHODS PROFESSOR documented in this encounter Results * DPS CONVERSION - LAB RESULT SCAN PROCEDURE (03/30/2009 12:00 AM STATISTICAL METHODS PROFESSOR) Narrative 03/30/2009 12:00 AM STATISTICAL METHODS PROFESSOR Ordered by an unspecified provider. Historical Provider LAB BLOOD ORDERAB LES * DPS CONVERSION - LAB RESULT SCAN PROCEDURE (03/29/2009 12:00 AM STATISTICAL METHODS PROFESSOR) Narrative 03/29/2009 12:00 AM STATISTICAL METHODS PROFESSOR Ordered by an unspecified provider. Historical Provider LAB BLOOD ORDERAB LES documented in this encounter Visit Diagnoses Not on filedocumented in this encounter
--- OUTSIDE RECORDS SUMMARY | 2024-08-22 11:28 | XMS_ITS | Encounter Summary ---
Author Organization [facility] Address [address] [place] [address] Phone Care Team Providers Care Mold Designer Name Role Phone Unavailable Primary Care Provider Unavailabl e Encounter Details Date Type Department Care Team (Late st Contact Info) Description 10/23/2009 Legacy Encounter - Labs HISTORICAL CONVERSION [place] [phone], [place] [address] ProviderYoav MD [facility] [place] [address] Social History Tobacco Use Types Packs/Day Years [...]
--- OUTSIDE RECORDS SUMMARY | 2024-08-22 11:28 | XMS_ITS | Encounter Summary ---
Author Organization [facility] Address [address] [place] [address] Phone Care Team Providers Care Dryland Farmer Name Role Phone Unavailable Primary Care Provider Unavailabl e Encounter Details Date Type Department Care Team (Late st Contact Info) Description 06/18/2009 Legacy Encounter - Labs HISTORICAL CONVERSION [place] [phone], [place] [address] ProviderYoav MD [facility] [place] [phone] Social History Tobacco Use Types Packs/Day Years [...] LAB RESULT SCAN PROCEDURE 06/18/2009 12:00 AM BULK LOADER documented in this encounter Results * DPS CONVERSION - LAB RESULT SCAN PROCEDURE (06/18/2009 12:00 AM BULK LOADER) Narrative 06/18/2009 12:00 AM BULK LOADER Ordered by an unspecified provider. Historical Provider LAB BLOOD ORDERAB LES documented in this encounter Visit Diagnoses Not on filedocumented in this encounter
--- OUTSIDE RECORDS SUMMARY | 2024-08-22 11:28 | XMS_ITS | Encounter Summary ---
Author Organization [facility] Address [address] [place] [address] Phone Care Team Providers Care Liquid Sugar Fortifier Name Role Phone Unavailable Primary Care Provider Unavailabl e Encounter Details Date Type Department Care Team (Late st Contact Info) Description 07/15/2011 Legacy Encounter - Labs HISTORICAL CONVERSION [place] [address], [place] [address] ProviderYoav MD [facility] [place] [phone] Social History Tobacco Use Types Packs/Day Years [...] LAB RESULT SCAN PROCEDURE 07/15/2011 12:00 AM FOOD COUNSELOR documented in this encounter Results * DPS CONVERSION - LAB RESULT SCAN PROCEDURE (07/15/2011 12:00 AM FOOD COUNSELOR) Narrative 07/15/2011 12:00 AM FOOD COUNSELOR Ordered by an unspecified provider. Historical Provider LAB BLOOD ORDERAB LES documented in this encounter Visit Diagnoses Not on filedocumented in this encounter
--- OUTSIDE RECORDS SUMMARY | 2024-08-22 11:28 | XMS_ITS | Clinical Summary ---
Author Organization [facility] Address [address] [place] [address] Care Team Providers Care Commercial Hvac Service Technician Name Role Phone Pcp, No Primary Care [...] Description 05/27/2024 2:40 PM EST Office Visit [facility] [address] [phone] Alok Pederson MD Devitt, Precious Lopez, DEYSI [...] (05/27/2024 3:10 PM EST) Culture SEE NOTE(A) [email or web address] Comment: ??CULTURE, URINE, ROUTINE ?Micro Number: ?[id number] ??Test Status: ? Final ??Specimen Source: ?? [...] Carrasco APRN LAB AMB MICRO ORDERA BLES [email or web address] [address] [place] [id number] * (ABNORMAL) POCT Urinalysis Dipstick, Automated (05/27/2024 [...] Leukocyte Esterase, UA Trace(A) Negative Lot Number [id number] Polytechnic Registrar Pass Pass Urine 05/27/2024 3:07 PM EST Precious Carrasco APRN POINT OF CARE TEST O RDERABLES from Last 3 Months Care Teams Commercial Hvac Service Technician Relationship Specialty Start Date End Date Pcp, No PCP - General General Medicine 05/27/24
--- OUTSIDE RECORDS SUMMARY | 2024-08-22 11:28 | XMS_ITS | Encounter Summary ---
Author Organization [facility] Address [address] [place] [address] Phone Care Team Providers Care Test Facility Engineer Name Role Phone Unavailable Primary Care Provider Unavailabl e Encounter Details Date Type Department Care Team (Late st Contact Info) Description 06/06/2013 Abstract HISTORICAL CONVERSION [place] [phone] ProviderYoav MD [facility] [place] [phone] Social History Tobacco Use Types Packs/Day Years [...]
--- OUTSIDE RECORDS SUMMARY | 2024-08-22 11:28 | XMS_ITS | Encounter Summary ---
Author Organization [facility] Address [address] [place] [address] Phone Care Team Providers Care Respiratory Care Specialist Name Role Phone Unavailable Primary Care Provider Unavailabl e Encounter Details Date Type Department Care Team (Late st Contact Info) Description 10/22/2012 Legacy Encounter - Labs HISTORICAL CONVERSION [place] [address], [place] [address] ProviderYoav [place] [facility] [address] Social History Tobacco Use Types Packs/Day Years [...]
--- OUTSIDE RECORDS SUMMARY | 2024-08-22 11:28 | XMS_ITS | Encounter Summary ---
Author Organization [facility] Address [address] [place] [address] Phone Care Team Providers Care Spin Table Operator Name Role Phone Unavailable Primary Care Provider Unavailabl e Encounter Details Date Type Department Care Team (Late st Contact Info) Description 03/23/2014 Legacy Encounter - Labs HISTORICAL CONVERSION [place] [address], [place] [address] ProviderYoav MD [facility] [place] [address] Social History Tobacco Use Types Packs/Day Years [...]
--- OUTSIDE RECORDS SUMMARY | 2024-08-22 11:29 | XMS_ITS | Encounter Summary ---
Author Organization [facility] Address [address] [place] [address] Phone Care Team Providers Care Turbine Subassembler Name Role Phone Unavailable Primary Care Provider Unavailabl e Encounter Details Date Type Department Care Team (Late st Contact Info) Description 10/28/2005 Legacy Encounter - Labs HISTORICAL CONVERSION [place] [address], [place] [address] ProviderYoav MD [facility] [place] [address] Social History Tobacco Use Types Packs/Day Years [...]
--- OUTSIDE RECORDS SUMMARY | 2024-08-22 11:29 | XMS_ITS | Encounter Summary ---
Author Organization [facility] Address [address] [place] [address] Phone Care Team Providers Care Sheet Finisher Name Role Phone Unavailable Primary Care Provider Unavailabl e Encounter Details Date Type Department Care Team (Late st Contact Info) Description 03/28/2015 Abstract HISTORICAL CONVERSION Jacqu[place] [phone] ProviderYoav MD [facility] [place] [phone] Social History Tobacco Use Types Packs/Day Years [...]
--- OUTSIDE RECORDS SUMMARY | 2024-08-22 11:29 | XMS_ITS | Encounter Summary ---
Author Organization [facility] Address [address] [place] [address] Phone Care Team Providers Care Braid Maker Name Role Phone Unavailable Primary Care Provider Unavailabl e Encounter Details Date Type Department Care Team (Late st Contact Info) Description 01/27/2006 Abstract HISTORICAL CONVERSION [place] [phone] ProviderYoav MD [facility] [place] [phone] Social History Tobacco Use Types Packs/Day Years [...]
--- OUTSIDE RECORDS SUMMARY | 2024-08-22 11:29 | XMS_ITS | Encounter Summary ---
Author Organization [facility] Address [address] [place] [address] Phone Care Team Providers Care Fabric Machine Operator Name Role Phone Unavailable Primary Care Provider Unavailabl e Encounter Details Date Type Department Care Team (Late st Contact Info) Description 08/17/2015 Legacy Encounter - Labs HISTORICAL CONVERSION [place] [address], [place] [address] ProviderYoav MD [facility] [place] [address] Social History Tobacco Use Types Packs/Day Years [...]
--- OUTSIDE RECORDS SUMMARY | 2024-08-22 11:29 | XMS_ITS | Encounter Summary ---
Author Organization [facility] Address [address] [place] [address] Phone Care Team Providers Care Weeder Name Role Phone Unavailable Primary Care Provider Unavailabl e Encounter Details Date Type Department Care Team (Late st Contact Info) Description 08/28/2006 Legacy Encounter - Labs HISTORICAL CONVERSION [place] [address], [place] [address] ProviderYoav MD [facility] [place] [address] Social History Tobacco Use Types Packs/Day Years [...]
--- OUTSIDE RECORDS SUMMARY | 2024-08-22 11:29 | XMS_ITS ---
Author Organization [facility] Address [address] [place] [phone] Care Team Providers Care Ferry Hand Name Role Phone HARMEET RAMON Primary Care Provider [phone] [facility] MALICK STANTON Unavailable [phone] REASON FOR VISIT Refills MEDICATIONS Medication SIG (Take, Route, Frequency, Duration) Notes Start Date End Date Status Metoprolol Succinate 25 MG 1 capsule Ora lly twice a day for 30 days 10/02/2023 Active Encounters Encounter Location Date Provider Diagnosis [facility] [address] [place], [place] [phone] 10/02/2023 MALICK STANTON PLAN OF TREATMENT Medication Medication Name Sig Start Date Stop Date Notes Metoprolol Succinate 25 MG 1 capsule Ora lly twice a day for 30 days 10/02/2023 Metoprolol Succinate 25 MG 1 capsule Orally Once a day Progress Notes * BLANCA FANALEJANDROOB: 5 (57 yo F)Acc No.[id number]:10/02/2023 Patient:??CHINTAN FAN :1965?Age:57 Y?Sex:Fe male Phone: Address:[address] [place] [address], [address], [place] [address] * Refills?? Stop Metoprolol Succinate Capsule ER 24 Hour Sprinkle, 25 MG, Orally, 1 capsule, Once a day Start Metoprolol Succinate Capsule ER 24 Hour Sprinkle, 25 MG, Orally, 60 Capsule, 1 capsule, twice a day, 30 days * true * Date:??
--- OUTSIDE RECORDS SUMMARY | 2024-08-22 11:29 | XMS_ITS | Encounter Summary ---
Author Organization [facility] Address [address] [place] [address] Phone Care Team Providers Care Drying Equipment Operator Name Role Phone Unavailable Primary Care Provider Unavailabl e Encounter Details Date Type Department Care Team (Late st Contact Info) Description 03/27/2015 Clinical Support HISTORICAL [address] [address] ProviderYoav MD [facility] [place] [phone] Social History Tobacco Use Types Packs/Day Years [...]
--- OUTSIDE RECORDS SUMMARY | 2024-08-22 11:29 | XMS_ITS | Encounter Summary ---
Author Organization [facility] Address [address] [place] [address] Phone Care Team Providers Care Sales Agent Food Vending Service Name Role Phone Unavailable Primary Care Provider Unavailabl e Encounter Details Date Type Department Care Team (Late st Contact Info) Description 11/20/2005 Legacy Encounter - Labs HISTORICAL CONVERSION [place] [address], [place] [address] ProviderYoav MD [facility] [place] [address] Social History Tobacco Use Types Packs/Day Years [...]
--- OUTSIDE RECORDS SUMMARY | 2024-08-22 11:29 | XMS_ITS | Patient Health Record ---
Author Organization [facility] Address [address] [place], [place] [address] Care Team Providers Care Handwriting Expert Name Role Phone RAMON GA Primary Care Provider [phone] MALICK STANTON Unavailable [phone] ALLERGIES Allergen (clinical drug ingredient) Drug/Non Drug Allergy documented on EMR Reaction Allergy Type Onset Date Status Substance with sulfonamide structure and antibacterial mechanism of action (substance) Sulfa Antibiotics stomach upset Drug Allergy Active REASON FOR REFERRAL Reason please order Cologua rd for pt Diagnosis 1 Encounter for screen ing for malignant neoplasm of colon (Z12.11) Referral Organization [facility] Referring Provider First Name MALICK Referring Provider Last Name MAXIMINO Referring Provider Speciality Preventive Medicine Referred Organization [facility] Referred Address [address] [place], [place], Referred Provider Specialty Diagnostic L aboratory General Notes JONO FULTON 09/22 09:49:16 AM >Order for Cologuard and demographics faxed to [facility] [phone]. Referral Priority Routine MEDICATIONS Medication SIG (Take, [...] Thre e times a Week Active Nystatin 664340 UNIT/GM 1 application Externally Twice a day [...] Tobacco use: nonsmoker Section Notes: Lives in [place], [place] alone . Patient is diabled. Lives in [place], [place] alone . Patient is diabled. Lives in [place] alone . Patient is diabled. Lives in [place] alone . Patient is diabled. Lives in [place] alone . Patient is diabled. Lives in [place], [place] alone . Patient is diabled. PROBLEMS Problem Type ICD Code Onset Dates Problem Status W/U Status Risk SNOMED Code Notes Problem Essential (primary) hypertension (I10) Active confirmed 89903918 Problem Other osteoporosis without current pathological fracture (M81.8) Active confirmed 02992902 Problem Proteinuria, unspecified (R80.9) Active confirmed 69624204 Problem Prediabetes (R73.03) Active confirmed 828294916 Problem Sjogren syndrome with inflammatory arthritis (M35.05) Active confirmed 80989615 Problem Iron deficiency anemia, unspecified iron deficiency anemia type (D50.9) Active confirmed 86729126 Problem Elevated high sensitivity C-reactive protein (R79.82) Active confirmed 680154057560295 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 31541169 Problem Obesity (BMI 30-39.9) (E66.9) Active confirmed 074540736 Problem Lupus (M32.9) Active confirmed 23212327 3 Problem Psoriatic arthritis (L40.50) Active confirmed 340078442 Problem Uncomplicated opioid dependence (F11.20) Active confirmed 03999794 VITAL SIGNS Heart Rate 81 /min 10/07/2023 Height-cm 163.83 cm 10/07/2023 Oximetry 97 % 10/07/2023 Blood pressure diastolic 82 mm Hg 10/07/2023 Weight-kg 88 kg 10/07/2023 Height 64.5 in 10/07/2023 Blood pressure systolic 146 mm Hg 10/07/2023 Weight 194.0 lbs 10/07/2023 BMI 32.78 kg/m2 10/07/2023 Encounters Encounter Location Date Provider Diagnosis [address] [id number] 10/07/2023 [facility]counter for genera l adult medical [...] C-reactive protein R79.82 and Beena infection B37.[address] [id number] 09/04/[address] [id number] 09/14/[address] [id number] 10/02/[address] [id number] 10/05/2023 MALICK STANTON ASSESSMENTS Encounter Date Diagnosis [...] after pt stabalized with rheumatology Referral to shop router as well 10/07/2023 Other osteoporosis without current [...] PANEL, STANDARD (7600) 04/07/2023 COMPREHENSIVE METABOLIC PANEL (66327) CBC (H/H, RBC, INDICES, WBC, PLT) (1759) 04/07/2023 CARDIO IQ(R) HS CRP (32907) 04/07/2023 HEMOGLOBIN A1c (496) 04/07/2023 INSULIN (561) 04/07/2023 Insurance Providers Payer Name Payer Address Payer Phone Subscriber Number Group Number Insured Name Patient Relationship to Insured Coverage Start Date Coverage End Date [facility] Medicare Advantag e [address] [address] [place], [place] [id number] CHINTAN FAN Self - patient is the insured [facility] [address] [place] [address] [phone] [id number] CHINTAN FAN Self - patient is the insured MEDICAL (GENERAL) HISTORY Medical History History ICD Code Lupus Psoriatic Arthritis Philipp's Disease Sjogren's Syndrome Hypertension Chicken Pox Shingles Surgical History Surgery Date(Month/Year) Bi lateral ankle surgery 2018 Tonsillectomy [place] Teeth removal Hospitalization History Reason Date(Month/Year) B-lateral ankle surgery 2018
--- OUTSIDE RECORDS SUMMARY | 2024-08-22 11:29 | XMS_ITS | Encounter Summary ---
Author Organization [facility] Address [address] [place] [address] Phone Care Team Providers Care Router Tender Name Role Phone Unavailable Primary Care Provider Unavailabl e Encounter Details Date Type Department Care Team (Late st Contact Info) Description 03/26/2009 Abstract HISTORICAL CONVERSION [place] [phone] ProviderYoav MD [facility] [place] [phone] Social History Tobacco Use Types Packs/Day Years [...]
--- OUTSIDE RECORDS SUMMARY | 2024-08-22 11:29 | XMS_ITS | Encounter Summary ---
Author Organization [facility] Address [address] [place] [address] Phone Care Team Providers Care Director Internal Control Name Role Phone Unavailable Primary Care Provider Unavailabl e Encounter Details Date Type Department Care Team (Late st Contact Info) Description 07/28/2006 Legacy Encounter - Labs HISTORICAL CONVERSION [place] [address], [place] [address] ProviderYoav MD [address] [place] [address] Social History Tobacco Use Types Packs/Day Years [...] LAB RESULT SCAN PROCEDURE 07/28/2006 12:00 AM EXPEDITER SERVICE ORDER DPS CONVERSION - LAB RESULT SCAN PROCEDURE 07/28/2006 12:00 AM EXPEDITER SERVICE ORDER documented in this encounter Results * DPS CONVERSION - LAB RESULT SCAN PROCEDURE (07/28/2006 12:00 AM EXPEDITER SERVICE ORDER) Narrative 07/28/2006 12:00 AM EXPEDITER SERVICE ORDER Ordered by an unspecified provider. Historical Provider LAB BLOOD ORDERAB LES * DPS CONVERSION - LAB RESULT SCAN PROCEDURE (07/28/2006 12:00 AM EXPEDITER SERVICE ORDER) Narrative 07/28/2006 12:00 AM EXPEDITER SERVICE ORDER Ordered by an unspecified provider. Historical Provider LAB BLOOD ORDERAB LES documented in this encounter Visit Diagnoses Not on filedocumented in this encounter
--- OUTSIDE RECORDS SUMMARY | 2024-08-22 11:29 | XMS_ITS | Encounter Summary ---
Author Organization [facility] Address [address] [place] [address] Phone Care Team Providers Care Attraction Attendant Name Role Phone Unavailable Primary Care Provider Unavailabl e Encounter Details Date Type Department Care Team (Late st Contact Info) Description 08/18/2015 Legacy Encounter - Labs HISTORICAL CONVERSION [place] [phone], [place] [address] [place] [address] Social History Tobacco Use Types Packs/Day Years [...]
--- OUTSIDE RECORDS SUMMARY | 2024-08-22 11:29 | XMS_ITS | Encounter Summary ---
Author Organization [facility] Address [address] [place] [address] Phone Care Team Providers Care Drink Mixer Name Role Phone Unavailable Primary Care Provider Unavailabl e Encounter Details Date Type Department Care Team (Late st Contact Info) Description 05/04/2006 Legacy Encounter - Labs HISTORICAL CONVERSION [place] [address], [place] [address] ProviderYoav MD [facility] [place] [address] Social History Tobacco Use Types Packs/Day Years [...] LAB RESULT SCAN PROCEDURE 05/04/2006 12:00 AM COVERAGE ANALYST documented in this encounter Results * DPS CONVERSION - LAB RESULT SCAN PROCEDURE (05/04/2006 12:00 AM COVERAGE ANALYST) Narrative 05/04/2006 12:00 AM COVERAGE ANALYST Ordered by an unspecified provider. Historical Provider LAB BLOOD ORDERAB LES documented in this encounter Visit Diagnoses Not on filedocumented in this encounter
--- OUTSIDE RECORDS SUMMARY | 2024-08-22 11:29 | XMS_ITS | Encounter Summary ---
Author Organization [facility] Address [address] [place] [address] Phone Care Team Providers Care Rn Maternity Name Role Phone Unavailable Primary Care Provider Unavailabl e Encounter Details Date Type Department Care Team (Late st Contact Info) Description 03/13/2015 Legacy Encounter - Labs HISTORICAL CONVERSION [place] [address], [place] [address] ProviderYoav [place] [facility] [address] Social History Tobacco Use Types Packs/Day Years [...]
--- OUTSIDE RECORDS SUMMARY | 2024-08-22 11:29 | XMS_ITS | Encounter Summary ---
Author Organization [facility] Address [address] [place] [address] Phone Care Team Providers Care Enrollment Counselor Name Role Phone Unavailable Primary Care Provider Unavailabl e Encounter Details Date Type Department Care Team (Late st Contact Info) Description 01/30/2006 Legacy Encounter - Labs HISTORICAL CONVERSION [place] [address], [place] [address] ProviderYoav MD [facility] [place] [address] Social History Tobacco Use Types Packs/Day Years [...]
--- OUTSIDE RECORDS SUMMARY | 2024-08-22 11:29 | XMS_ITS | Encounter Summary ---
Author Organization [facility] Address [address] [place] [address] Phone Care Team Providers Care Internal Controls Manager Name Role Phone Unavailable Primary Care Provider Unavailabl e Encounter Details Date Type Department Care Team (Late st Contact Info) Description 04/29/2006 Legacy Encounter - Labs HISTORICAL CONVERSION [place] [address], [place] [address] ProviderYoav MD [facility] [place] [address] Social History Tobacco Use Types Packs/Day Years [...] LAB RESULT SCAN PROCEDURE 04/29/2006 12:00 AM MANAGER GROCERY DPS CONVERSION - LAB RESULT SCAN PROCEDURE 04/29/2006 12:00 AM MANAGER GROCERY DPS CONVERSION - LAB RESULT SCAN PROCEDURE 04/29/2006 12:00 AM MANAGER GROCERY documented in this encounter Results * DPS CONVERSION - LAB RESULT SCAN PROCEDURE (04/29/2006 12:00 AM MANAGER GROCERY) Narrative 04/29/2006 12:00 AM MANAGER GROCERY Ordered by an unspecified provider. Historical Provider LAB BLOOD ORDERAB LES * DPS CONVERSION - LAB RESULT SCAN PROCEDURE (04/29/2006 12:00 AM MANAGER GROCERY) Narrative 04/29/2006 12:00 AM MANAGER GROCERY Ordered by an unspecified provider. Historical Provider LAB BLOOD ORDERAB LES * DPS CONVERSION - LAB RESULT SCAN PROCEDURE (04/29/2006 12:00 AM MANAGER GROCERY) Narrative 04/29/2006 12:00 AM MANAGER GROCERY Ordered by an unspecified provider. Historical Provider LAB BLOOD ORDERAB LES documented in this encounter Visit Diagnoses Not on filedocumented in this encounter
--- OUTSIDE RECORDS SUMMARY | 2024-08-22 11:29 | XMS_ITS | Encounter Summary ---
Author Organization [facility] Address [address] [place] [address] Phone Care Team Providers Care Educational Advisor Name Role Phone Unavailable Primary Care Provider Unavailabl e Encounter Details Date Type Department Care Team (Late st Contact Info) Description 10/05/2008 Legacy Encounter - Labs HISTORICAL CONVERSION [place] [address], [place] [address] ProviderYoav MD [facility] [place] [address] Social History Tobacco Use Types Packs/Day Years [...]
--- OUTSIDE RECORDS SUMMARY | 2024-08-22 11:29 | XMS_ITS | Encounter Summary ---
Author Organization [facility] Address [address] [place] [address] Phone Care Team Providers Care Master Machinist Name Role Phone Unavailable Primary Care Provider Unavailabl e Encounter Details Date Type Department Care Team (Late st Contact Info) Description 09/18/2008 Legacy Encounter - Labs HISTORICAL CONVERSION [place] [address], [place] [address] ProviderYoav MD [facility] [address] Social History Tobacco Use Types Packs/Day Years [...]
--- OUTSIDE RECORDS SUMMARY | 2024-08-22 11:29 | XMS_ITS ---
Author Organization [facility] Address [address] [place], [place] [address] Care Team Providers Care Premium Service Representative Name Role Phone RAMON GA Primary Care Provider [phone] MALICK STANTON Unavailable [phone] ALLERGIES Allergen (clinical drug ingredient) Drug/Non Drug Allergy documented on EMR Reaction Allergy Type Onset Date Status Substance with sulfonamide structure and antibacterial mechanism of action (substance) Sulfa Antibiotics stomach upset Drug Allergy Active REASON FOR REFERRAL Reason please order Cologua rd for pt Diagnosis 1 Encounter for screen ing for malignant neoplasm of colon (Z12.11) [facility] Referring Provider First Name MALICK Referring Provider Last Name MAXIMINO Referring Provider Speciality Preventive Medicine Referred Organization [facility] Referred Address [address] [place], [place],[id number], Referred Provider Specialty Diagnostic L aboratory General Notes JONO FULTON 09/22 09:49:16 AM >Order for Cologuard and demographics faxed to [id number] . Referral Priority Routine REASON FOR VISIT Annual [...] day for 30 days 09/04/2023 Active Nystatin 543908 UNIT/GM 1 application Externally Twice a day [...] Tobacco use: nonsmoker Section Notes: Lives in [place], [place] alone . Patient is diabled. VITAL SIGNS Blood pressure systolic 146 mm Hg 10/07/19 24 Blood pressure diastolic 82 mm Hg 024 Heart Rate 81 /min 10/07/2023 Height 64.5 in 10/07/2023 Weight 194.0 lbs 10/07/2023 BMI 32.78 kg/m2 10/07/2023 Oximetry 97 % 10/07/2023 Height-cm 163.83 cm 10/07/2023 Weight-kg 88 kg 10/07/2023 Encounters Encounter Location Date Provider Diagnosis [address] [id number] 10/07/2023 MALICK STANTON Encounter for genera l [...] after pt stabalized with rheumatology Referral to rn testing as well 10/07/2023 Other osteoporosis without current [...] e a day for 90 days Nystatin 858516 UNIT/GM 1 application Ex ternally Twice a [...] after pt stabalized with rheumatology Referral to rn testing as well Other osteoporosis without c urrent [...] please order Grace fregoso for pt , [address] [place] [address], [place], [phone], @[facility], Next Appt Details Follow Up: 3 Months, Reason: with repeat labs Progress Notes * BLANCA FANALEJANDROOB: 5 (57 yo F)Acc No.[id number]:10/07/2023 Progress Note Patient:??FABIANA FAN Provider:??MALICK STANTON NP :1965?Age:57 Y?Sex:Fe male Date:10/07/2023 Phone: Address:[address] [place] [address] [place], [address], [place], [place] Pcp:RAMON GA Subjective: * Chief Complaints: * ?Annual CPE, EKG * HPI: ?Patient Care Team:?Electric Sign Assembler:??Dr. Echeverria, Sherif Rheum , Dr. Echeverria, Sherif Rheum.? Providers/Specialists: Hematology: In [place]. ?Visit info:? Fabiana presents today for her [...] sleeping, substance abuse.? * Medical History:?? * Preschool Substitute Teacher History:??Menstrual hist ory:??LMP:?? Has not had period in 20 years,?Age of Menarche:??14.??Last pap smear date??15 years - normalAppt. 12/2023 for Annual @ [facility].??Last mammogram date??08/2023 @ [facility].?? * OB History:?? Histo ry:??Total pregnancies:??0.?? * Surgical History:??Bi latera l ankle surgery 2018Tonsillectomy [place] Teeth removal * Ocular Surgical History:?? * Hospitalization/Major Diagno stic Procedure:??B-lateral ankle surgery 2018 * Family History:??Father: dec eased, ALS.??Mother: alive, Hypertension.??Paternal Grandfather: , arthritis, Lupus.??Paternal Grandmother: , Unknown.??Maternal Grandfather: , Unknown.??Maternal Grandmother: , Unknown.??Sister: alive, Thyroid Disease.?? * Social History:?Tobacco Use:??Tobacco Use/Smoking??Tobacco use:??nonsmoker.?Drugs/Alcohol:??Do you smoke marijuana?: Denies. Do you drink alcohol?: No. ?Lives in [place], [place] alone. Patient is diabled. * Medications:??TakingZoledron [...] examination with abnormal findings?? Start Nystatin Powder, 084467 UNIT/GM, 1 application, Externally, Twice a day, [...] after pt stabalized with rheumatology Referral to rn testing as well? 13.??Other osteoporosis with out current [...] No Td/Tdap: Due Hep A/Hep B: [place] COAL WHEELER: In december Mammogram: August 2023 Eye Exam: UTD Dental Exam: uTD Depression Scale: Negative Alcohol Misuse Screening: None Smoking Cessation: Nonsmoker Screened HTN, diabetes, BMI. * Follow Up:??3 Months (Reason : with repeat labs) Care Plan: * Problems:?? * Billing Information: * Visit Code:?? 04560 Preventive Care Est Pt. Age 40-64. * Procedure Codes:?? * Sign off status: Completed true * Provider:??MALICK STANTON NP Date:?? History and Physical Notes * HPI (History of Present Illness) Category Sub-Category Detail Notes Category Not es Patient Care Team Electric Sign Assembler: Brennon [place] Rheum , Sherif [place] Rheum Providers/Speciali sts: Hematology: In [place] Examination Category Sub-Category Detail Notes Category Not [...]
--- OUTSIDE RECORDS SUMMARY | 2024-08-22 11:29 | XMS_ITS | Encounter Summary ---
Author Organization [facility] Address [address] [place] [address] Phone Care Team Providers Care Service Director Name Role Phone Unavailable Primary Care Provider Unavailabl e Encounter Details Date Type Department Care Team (Late st Contact Info) Description 11/06/2006 Legacy Encounter - Labs HISTORICAL CONVERSION [place] [address], [place] [address] ProviderYoav MD [facility] [place] [address] Social History Tobacco Use Types Packs/Day Years [...]
== END 2024-08-22 11:18 | disposition home or self-care (01) ==
LOC: HO.HMCFM 10:17
PROVIDERS: PCP Nurse Practitioner Family; Visit Provider Nurse Practitioner Family
DX: Z00.00 Encounter for general adult medical examination without abnormal findings (principal); M54.50 Low back pain, unspecified; G89.29 Other chronic pain; E03.9 Hypothyroidism, unspecified; I10 Essential (primary) hypertension; D50.9 Iron deficiency anemia, unspecified; Z23 Encounter for immunization

== ENCOUNTER → 2024-08-22 10:16 | Outpatient (BNVA) | payer MEDICARE, MEDICAID, SELFPAY | PROVIDERS: PCP Nurse Practitioner Family; Visit Provider Nurse Practitioner Family | DX: Z00.00 Encounter for general adult medical examination without abnormal findings (principal); M54.50 Low back pain, unspecified; G89.29 Other chronic pain; E03.9 Hypothyroidism, unspecified; I10 Essential (primary) hypertension; D50.9 Iron deficiency anemia, unspecified; M81.0 Age-related osteoporosis without current pathological fracture; Z23 Encounter for immunization | CPT/HCPCS: 90471; 90715; 96127; 99212; 99396 ==

== ENCOUNTER 2024-09-19 15:05 | Outpatient (REF) | payer MEDICARE, MEDICAID, SELFPAY ==
[2024-09-19 15:33] LABS: MANUAL DIFF FLAG NO
[2024-09-19 15:52] LABS: Basophils Percent Auto 0.7 % (0-2); Eosinophils Absolute Auto 0.2 X10*3/uL (0.0-0.4); Eosinophils Percent Auto 3.9 % (0-4); Hematocrit 36.2 % (37.0-47.0); Hemoglobin 11.3 g/dl (12.0-16.0); Imm Gran Abs Auto 0.01 X10*3/uL (0.00-0.03); Imm Gran Pct Auto 0.2 % (0.0-0.4); Lymphocytes Absolute Auto 1.6 X10*3/uL (1.2-4.9); Lymphocytes Percent Auto 37.8 % (20-40); Mean Corpuscular HGB Conc 31.2 g/dl (31.0-35.0); Mean Corpuscular Hemoglobin 27.2 pg (27.0-33.0); Mean Corpuscular Volume 87.2 fL (80.0-98.0); Mean Platelet Volume 9.6 fL (9.4-12.3); Monocytes Absolute Auto 0.3 X10*3/uL (0.1-1.2); Monocytes Percent Auto 7.1 % (2-11); Neutrophils Absolute Auto 2.2 x10*3/uL (2.0-8.3); Neutrophils Percent Auto 50.3 % (45-73); Platelet Count 239 X10*3/uL (160-400); Red Blood Count 4.15 X10*6/uL (4.20-5.50); Red Cell Distribution Width 14.6 % (11.0-16.0); White Blood Count 4.3 X10*3/uL (4.8-10.8)
[2024-09-19 16:53] LABS: Alanine Aminotransferase 19 U/L (0-31); Alkaline Phosphatase 49 U/L (39-117); Anion Gap 12 (12-20); Aspartate Amino Transferase 26 U/L (5-31); Bilirubin Total 0.3 mg/dL (0.0-1.0); Blood Urea Nitrogen 16 mg/dL (9-16); C Reactive Protein 0.42 mg/dL (< or = 0.50); Calcium 8.8 mg/dL (8.4-10.2); Carbon Dioxide 30 mmol/L (22-29); Chloride 106 mmol/L (96-108); Estimated Glomerular Filt Rate > 60; Glucose Random 109 mg/dL (60-115); Potassium 4.5 mmol/L (3.3-5.1); Sodium 143 mmol/L (135-145); Total Protein 7.1 g/dL (6.5-8.0)
[2024-09-19 16:54] LABS: Vitamin D 25-OH Total 27.4 ng/mL (>30)
[2024-09-19 17:05] LABS: Erythrocyte Sedimentation Rate 7 MM/HR (0-20)
--- OUTSIDE RECORDS SUMMARY | 2024-09-19 17:57 | XMS_ITS ---
Author Organization [facility] [place], [facility] Address [address] [place] [id number] Care Team Providers Care Manager Beauty Name Role Phone HARMEETCHINORAMON Primary Care Provider [phone] MALICK FAULKNER Unavailable [phone] REASON FOR VISIT Rx Change MEDICATIONS Medication SIG (Take, Route, Frequency, Duration) Notes Start Date End Date Status Metoprolol Succinate 50 MG 1 capsule Ora lly Once a day for 90 days 10/06/2023 Active Encounters Encounter Location Date Provider Diagnosis [address] [id number] 10/05/2023 MALICK STANTON PLAN OF TREATMENT Medication Medication Name Sig Start Date Stop Date Notes Metoprolol Succinate 25 MG 1 capsule Orally twice a day Metoprolol Succinate 50 MG 1 capsule Ora lly Once a day for 90 days 10/06/2023 Progress Notes * BLANCA FANALEJANDROOB: 5 (57 yo F)Acc No.[id number]:10/05/2023 Patient:??CHINTAN FAN :1965?Age:57 Y?Sex:Fe male Phone: Address:[address] [place] [address], [address], [place] [address] * Refills?? Stop Metoprolol Succinate Capsule ER 24 Hour Sprinkle, 25 MG, Orally, 1 capsule, twice a day Start Metoprolol Succinate Capsule ER 24 Hour Sprinkle, 50 MG, Orally, 90 Capsule, 1 capsule, Once a day, 90 days, Refills=5 * true * Date:??
--- OUTSIDE RECORDS SUMMARY | 2024-09-19 17:57 | XMS_ITS | Encounter Summary ---
Author Organization [facility] Address [address] [place] [address] Phone Care Team Providers Care Black Jack Dealer Name Role Phone Unavailable Primary Care Provider Unavailabl e Encounter Details Date Type Department Care Team (Late st Contact Info) Description 10/29/2013 Legacy Encounter - Labs HISTORICAL CONVERSION [place] [address], [place] [address] ProviderYoav MD [facility] [place] [phone] Social History Tobacco Use Types Packs/Day Years Used Date Smoking Tobacco: Never Assessed Comments Unknown Sex and Gender Information Value Date Recorded Sex Assigned at Not on file Legal Sex Female 11:47 AM MDT Gender Identity Not on file Sexual Orientation [...] an unspecified provider. Historical Provider LAB BLOOD ORDERABLES Day l Result * DPS CONVERSION - LAB RESULT SCAN PROCEDURE (10/29/2013 12:00 AM CDT) Narrative 10/29/2013 12:00 AM CDT Ordered by an unspecified provider. Historical Provider LAB BLOOD ORDERABLES Day l Result documented in this encounter Visit Diagnoses Not on filedocumented in this encounter
--- OUTSIDE RECORDS SUMMARY | 2024-09-19 17:57 | XMS_ITS | Clinical Summary ---
Author Organization [facility] Address [address] [place] [address] Phone Care Team Providers Care Health Care Coordinator Name Role Phone Unavailable Primary Care Provider Unavailabl e Medications RABEprazole (ACIPHEX) 20 MG EC tablet RABEprazole Sodium( 20MG Oral 1 daily ) Active -Hx Entry 5 Active traZODone (DESYREL) 100 MG tablet TraZODone HCl 100MG, 1 (one) Tablet at bedtime # 90, 09/05/2015, Ref. x2. Active 2 6 Active DULoxetine (Cymbalta) [address] capsule 4 Active hydroxychloroq uine (Plaquenil) 200 MG tablet 4 Active mycophenolate (CellCept) 500 MG tablet CellCept 500MG, 1 Tablet two times daily # 60, 09/10/2010, Ref. x9. Active 9 1 Active gabapentin (Neurontin) 300 MG capsule Neurontin 300MG, 1 in AM 2 in PM Capsule Capsule daily # 60, 11/11/2012, Ref. x3. Active 3 3 Active levothyroxine (SYNTHROID) 150 MCG tablet Levothyroxine Sodium( 150MCG Oral 1 daily ) Active -Hx Entry 5 Active diclofenac (VOLTAREN) 75 MG EC tablet Diclofenac Sodium( 75MG Oral 1 daily ) Active -Hx Entry 5 Active lubiprostone (Amitiza) 24 MCG capsule Amitiza( 24MCG Oral 1 two times daily ) Active -Hx Entry 5 Active acetaminophen (TYLENOL) 500 MG tablet Tylenol Extra Strength( 500MG Oral 1 as needed ) Active -Hx Entry 5 Active HYDROcodone-ac etaminophen (Thebes) 10-325 MG per tablet Thebes( 10-325MG Oral 1 as needed ) Active -Hx Entry 5 Active Active Problems Problem Noted Date Diagnosed [...] Comments Blood Pressure 122/74 03/27/2015 12:01 AM PROTOCOL OFFICER Pulse 80 03/27/2015 12:01 AM PROTOCOL OFFICER Temperature - - Respiratory Rate - - Oxygen Saturation - - Inhaled Oxygen Concentration - - Weight 68.9 kg (152 lb) 03/27/2015 12:01 AM PROTOCOL OFFICER Height 162.6 cm (5' 4 ) 03/27/2015 12:01 AM PROTOCOL OFFICER Body Mass Index 26.09 03/27/2015 12:01 AM PROTOCOL OFFICER Plan of Treatment Not on file Insurance [employer]ANCE
--- OUTSIDE RECORDS SUMMARY | 2024-09-19 17:57 | XMS_ITS | Encounter Summary ---
Author Organization [facility] Address [address] [place] [address] Phone Care Team Providers Care Shipfitter Apprentice Name Role Phone Unavailable Primary Care Provider Unavailabl e Encounter Details Date Type Department Care Team (Late st Contact Info) Description 08/07/2012 Legacy Encounter - Labs HISTORICAL CONVERSION [place] [address], [place] [address] ProviderYoav MD [facility] [place] [phone] Social History Tobacco Use Types Packs/Day Years [...] AM CDT Ordered by an unspecified provider. us Historical Provider LAB BLOOD ORDERABLES Day l Result documented in this encounter Visit Diagnoses Not on filedocumented in this encounter
--- OUTSIDE RECORDS SUMMARY | 2024-09-19 17:57 | XMS_ITS | Encounter Summary ---
Author Organization [facility] Address [address] [place] [address] Phone Care Team Providers Care Alteration Specialist Name Role Phone Unavailable Primary Care Provider Unavailabl e Encounter Details Date Type Department Care Team (Late st Contact Info) Description 06/18/2009 Legacy Encounter - Labs HISTORICAL CONVERSION [place] [phone], [place] [address] ProviderYoav MD [facility] [place]Charles [place] [phone] Social History Tobacco Use Types Packs/Day Years Used Date Smoking Tobacco: Never Assessed Comments Unknown Sex and Gender Information Value Date Recorded Sex Assigned at Not on file Legal Sex Female 11:47 AM MDMichael Gender Identity Not on file Sexual Orientation Not on file documented as of this encounter Plan of Treatment Not on file documented as of this encounter Procedures Procedure Name Priority Date/Time Associated Diagnosis Comments DPS CONVERSION - LAB RESULT SCAN PROCEDURE 06/18/2009 12:00 AM [employer] GR[employer] MANAGER documented in this encounter Results * DPS CONVERSION - LAB RESULT SCAN PROCEDURE (06/18/2009 12:00 AM [employer] GROUND MANAGER) Narrative 06/18/2009 12:00 AM [employer] GROUND MANAGER Ordered by an unspecified provider. us Historical Provider LAB BLOOD ORDERABLES Day l Result documented in this encounter Visit Diagnoses Not on filedocumented in this encounter
--- OUTSIDE RECORDS SUMMARY | 2024-09-19 17:57 | XMS_ITS | Encounter Summary ---
Author Organization [facility] Address [address] [place] [address] Phone Care Team Providers Care Java Front End Web Developer Name Role Phone Unavailable Primary Care Provider Unavailabl e Encounter Details Date Type Department Care Team (Late st Contact Info) Description 09/01/2012 Legacy Encounter - Labs HISTORICAL CONVERSION [place] [phone], [place] [address] ProviderYoav MD [facility] [place] [address] Social History Tobacco Use Types Packs/Day Years [...]
--- OUTSIDE RECORDS SUMMARY | 2024-09-19 17:57 | XMS_ITS | Encounter Summary ---
Author Organization [facility] Address [address] [place] [address] Phone Care Team Providers Care Portfolio Architect Name Role Phone Unavailable Primary Care Provider Unavailabl e Encounter Details Date Type Department Care Team (Late st Contact Info) Description 07/06/2009 Abstract HISTORICAL CONVERSION [place]ri [place] [phone] ProviderYoav MD [facility] [place]Heidi [place] [phone] Social History Tobacco Use Types Packs/Day Years [...]
--- OUTSIDE RECORDS SUMMARY | 2024-09-19 17:57 | XMS_ITS | Encounter Summary ---
Author Organization [facility] Address [address] [place] [address] Phone Care Team Providers Care Process Control Technician Name Role Phone Unavailable Primary Care Provider Unavailabl e Encounter Details Date Type Department Care Team (Late st Contact Info) Description 01/09/2014 Legacy Encounter - Labs HISTORICAL CONVERSION [place] [phone], [place] [address] ProviderYoav MD [facility] [place]Antonio [place] [phone] Social History Tobacco Use Types Packs/Day Years [...]
--- OUTSIDE RECORDS SUMMARY | 2024-09-19 17:57 | XMS_ITS | Encounter Summary ---
Author Organization [facility] Address [address] [place] [address] Phone Care Team Providers Care Typist Name Role Phone Unavailable Primary Care Provider Unavailabl e Encounter Details Date Type Department Care Team (Late st Contact Info) Description 09/13/2012 Legacy Encounter - Labs HISTORICAL CONVERSION [place] [phone], [place] [address] ProviderYoav MD [facility] [place] [address] Social History Tobacco Use Types Packs/Day Years [...]
--- OUTSIDE RECORDS SUMMARY | 2024-09-19 17:57 | XMS_ITS | Encounter Summary ---
Author Organization [facility] Address [address] [place] [address] Phone Care Team Providers Care Sharepoint Analyst Name Role Phone Unavailable Primary Care Provider Unavailabl e Encounter Details Date Type Department Care Team (Late st Contact Info) Description 12/24/2012 Legacy Encounter - Labs HISTORICAL CONVERSION [place] [address], [place] [address] ProviderYoav MD [facility] AnyMichael [place] [phone] Social History Tobacco Use Types Packs/Day Years [...]
--- OUTSIDE RECORDS SUMMARY | 2024-09-19 17:57 | XMS_ITS | Encounter Summary ---
Author Organization [facility] Address [address] [place] [address] Phone Care Team Providers Care Service Desk Team Lead Name Role Phone Unavailable Primary Care Provider Unavailabl e Encounter Details Date Type Department Care Team (Late st Contact Info) Description 11/01/2013 Abstract HISTORICAL CONVERSION [place] [phone] ProviderYoav MD [facility] [place]Andrea [place] [phone] Social History Tobacco Use Types Packs/Day Years [...]
--- OUTSIDE RECORDS SUMMARY | 2024-09-19 17:57 | XMS_ITS | Encounter Summary ---
Author Organization [facility] Address [address] [place] [address] Phone Care Team Providers Care Chief Learning Officer Name Role Phone Unavailable Primary Care Provider Unavailabl e Encounter Details Date Type Department Care Team (Late st Contact Info) Description 01/20/2013 Legacy Encounter - Labs HISTORICAL CONVERSION [place] [phone], [place] [address] ProviderYoav MD [facility] AnySarah [place] [phone] Social History Tobacco Use Types Packs/Day Years [...]
--- OUTSIDE RECORDS SUMMARY | 2024-09-19 17:57 | XMS_ITS | Clinical Summary ---
Author Organization [facility] Address [address] [place] [address] Care Team Providers Care Manager Customs Name Role Phone Pcp, No Primary Care Provider Unavailabl e Allergies Active Allergy Reactions Criticality Noted Date Comments Sulfa Antibiotics Unknown/Patient and Family Unable to Define,Rash/Dermatitis Medium 11/29/2019 Medications metoPROLOL TARTRATE (LOPRESSOR) 25 MG tablet Active levothyroxine (SYNTHROID) 100 MCG Recon Soln Activ e hydroxychloroqui ne (PLAQUENIL) 200 MG tablet Take 200 mg by mouth. Active DULoxetine (CYMBALTA) 60 MG capsule Active tiZANidine (ZANAFLEX) 2 MG tablet Take 2 mg by mouth. Active traZODone (DESYREL) 50 MG tablet Take 50 mg by mouth nightly. Active Active Problems No known active problems Social History Tobacco Use Types Packs/Day Years Used Date Smoking Tobacco: Never Smokeless Tobacco: Never Comments Unknown Sex and Gender Information Value Date Recorded Sex Assigned at Not on file Legal Sex Female 2:37 PM EST Gender Identity Not on file Sexual Orientation [...] 2009 Influenza Vaccine 12/24/2023 02/26/2018, , 02/20/2012 Insurance [employer] [facility]GD MEDICARE [facility] Care Teams Manager Customs Relationship Specialty Start Date End Date Pcp, No PCP - General General Medicine 05/27/24
--- OUTSIDE RECORDS SUMMARY | 2024-09-19 17:57 | XMS_ITS | Encounter Summary ---
Author Organization [facility] Address [address] [place] [address] Phone Care Team Providers Care Pollution Control Engineer Name Role Phone Unavailable Primary Care Provider Unavailabl e Encounter Details Date Type Department Care Team (Late st Contact Info) Description 10/22/2012 Legacy Encounter - Labs HISTORICAL CONVERSION [place] [phone], [place] [address] ProviderYoav MD [facility] [place]Jeanne [place] [phone] Social History Tobacco Use Types Packs/Day Years Used Date Smoking Tobacco: Never Assessed Comments Unknown Sex and Gender Information Value Date Recorded Sex Assigned at Not on file Legal Sex Female 11:47 AM T Gender Identity Not on file Sexual Orientation [...]
--- OUTSIDE RECORDS SUMMARY | 2024-09-19 17:57 | XMS_ITS | Encounter Summary ---
Author Organization [facility] Address [address] [place] [address] Phone Care Team Providers Care Laborer Poultry Hatchery Name Role Phone Unavailable Primary Care Provider Unavailabl e Encounter Details Date Type Department Care Team (Late st Contact Info) Description 03/23/2014 Legacy Encounter - Labs HISTORICAL CONVERSION [place] [phone], [place] [address] ProviderYoav MD [facility] [place]Jenna [place] [phone] Social History Tobacco Use Types Packs/Day Years [...]
--- OUTSIDE RECORDS SUMMARY | 2024-09-19 17:57 | XMS_ITS | Encounter Summary ---
Author Organization [facility] Address [address] [place] [address] Phone Care Team Providers Care Personal Injury Specialist Name Role Phone Unavailable Primary Care Provider Unavailabl e Encounter Details Date Type Department Care Team (Late st Contact Info) Description 11/19/2009 Legacy Encounter - Labs HISTORICAL CONVERSION [place] [address], [place] [address] ProviderYoav MD [facility] [place]isa [place] [phone] Social History Tobacco Use Types Packs/Day Years [...]
--- OUTSIDE RECORDS SUMMARY | 2024-09-19 17:57 | XMS_ITS | Encounter Summary ---
Author Organization [facility] Address [address] [place] [address] Phone Care Team Providers Care Spanish Linguist Name Role Phone Unavailable Primary Care Provider Unavailabl e Encounter Details Date Type Department Care Team (Late st Contact Info) Description 10/23/2009 Legacy Encounter - Labs HISTORICAL CONVERSION [place] [phone], [place] [address] ProviderYoav MD [facility] [place]Travis [place] [phone] Social History Tobacco Use Types Packs/Day Years [...]
--- OUTSIDE RECORDS SUMMARY | 2024-09-19 17:57 | XMS_ITS | Encounter Summary ---
Author Organization [facility] Address [address] [place] [address] Phone Care Team Providers Care Merchandising Representative Name Role Phone Unavailable Primary Care Provider Unavailabl e Encounter Details Date Type Department Care Team (Late st Contact Info) Description 03/01/2012 Legacy Encounter - Labs HISTORICAL CONVERSION [place] [address], [place] [address] ProviderYoav MD [facility] AnyBenjamin [place] [phone] Social History Tobacco Use Types Packs/Day Years [...]
--- OUTSIDE RECORDS SUMMARY | 2024-09-19 17:57 | XMS_ITS | Encounter Summary ---
Author Organization [facility] Address [address] [place] [address] Phone Care Team Providers Care Promotor Group Ticket Sales Name Role Phone Unavailable Primary Care Provider Unavailabl e Encounter Details Date Type Department Care Team (Late st Contact Info) Description 01/18/2014 Legacy Encounter - Labs HISTORICAL CONVERSION [place] [phone], [place] [address] ProviderYoav MD [facility] AnyMary [place] [phone] Social History Tobacco Use Types Packs/Day Years [...]
--- OUTSIDE RECORDS SUMMARY | 2024-09-19 17:57 | XMS_ITS | Encounter Summary ---
Author Organization [facility] Address [address] [place] [address] Phone Care Team Providers Care Paint Roller Covermaker Name Role Phone Unavailable Primary Care Provider Unavailabl e Encounter Details Date Type Department Care Team (Late st Contact Info) Description 03/28/2015 Abstract HISTORICAL CONVERSION [place]ique [place] [phone] ProviderYoav MD [facility] [place]Melissa [place] [phone] Social History Tobacco Use Types Packs/Day Years [...]
--- OUTSIDE RECORDS SUMMARY | 2024-09-19 17:57 | XMS_ITS | Encounter Summary ---
Author Organization [facility] Address [address] [place] [address] Phone Care Team Providers Care Institutional Cook Name Role Phone Unavailable Primary Care Provider Unavailabl e Encounter Details Date Type Department Care Team (Late st Contact Info) Description 06/14/2012 Legacy Encounter - Labs HISTORICAL CONVERSION [place] [phone], [place] [address] ProviderYoav MD Pending sale to [facility] AnyKenneth [place] [phone] Social History Tobacco Use Types Packs/Day Years [...] LAB RESULT SCAN PROCEDURE 06/14/2012 12:[address] PILOT documented in this encounter Results * DPS CONVERSION - LAB RESULT SCAN PROCEDURE (06/14/2012 12:[address] [address]) Narrative 06/14/2012 12:[address] [place] Ordered by an unspecified provider. us Historical Provider LAB BLOOD ORDERABLES Day l Result documented in this encounter Visit Diagnoses Not on filedocumented in this encounter
--- OUTSIDE RECORDS SUMMARY | 2024-09-19 17:57 | XMS_ITS | Encounter Summary ---
Author Organization [facility] Address [address] [place] [address] Phone Care Team Providers Care Cello Teacher Name Role Phone Unavailable Primary Care Provider Unavailabl e Encounter Details Date Type Department Care Team (Late st Contact Info) Description 06/29/2012 Legacy Encounter - Labs HISTORICAL CONVERSION [place] [phone], [place] [address] ProviderYoav MD [facility] AnyAlex [place] [phone] Social History Tobacco Use Types Packs/Day Years [...] LAB RESULT SCAN PROCEDURE 06/29/2012 12:00 AM SEISMOGRAPH COMPUTER documented in this encounter Results * DPS CONVERSION - LAB RESULT SCAN PROCEDURE (06/29/2012 12:00 AM SEISMOGRAPH COMPUTER) Narrative 06/29/2012 12:00 AM SEISMOGRAPH COMPUTER Ordered by an unspecified provider. us Historical Provider LAB BLOOD ORDERABLES Day l Result documented in this encounter Visit Diagnoses Not on filedocumented in this encounter
--- OUTSIDE RECORDS SUMMARY | 2024-09-19 17:57 | XMS_ITS | Encounter Summary ---
Author Organization [facility] Address [address] [place] [address] Phone Care Team Providers Care Sas Programmer Remote Name Role Phone Unavailable Primary Care Provider Unavailabl e Encounter Details Date Type Department Care Team (Late st Contact Info) Description 06/06/2013 Abstract HISTORICAL CONVERSION Amanda [place] [phone] ProviderYoav MD [facility] AnyIsabella [place] [phone] Social History Tobacco Use Types Packs/Day Years [...]
--- OUTSIDE RECORDS SUMMARY | 2024-09-19 17:57 | XMS_ITS | Encounter Summary ---
Author Organization [facility] Address [address] [place] [address] Phone Care Team Providers Care Desulphuring Operator Name Role Phone Unavailable Primary Care Provider Unavailabl e Encounter Details Date Type Department Care Team (Late st Contact Info) Description 08/17/2015 Legacy Encounter - Labs HISTORICAL CONVERSION [place] [address], [place] [address] ProviderYoav MD [facility] AnySarah [place] [phone] Social History Tobacco Use Types Packs/Day Years [...]
--- OUTSIDE RECORDS SUMMARY | 2024-09-19 17:57 | XMS_ITS | Encounter Summary ---
Author Organization [facility] Address [address] [place] [address] Phone Care Team Providers Care Investment Underwriter Name Role Phone Unavailable Primary Care Provider Unavailabl e Encounter Details Date Type Department Care Team (Late st Contact Info) Description 02/13/2014 Legacy Encounter - Labs HISTORICAL CONVERSION [place] [phone], [place] [address] [facility] AnyEdward [place] [phone] Social History Tobacco Use Types Packs/Day Years [...]
--- OUTSIDE RECORDS SUMMARY | 2024-09-19 17:57 | XMS_ITS | Encounter Summary ---
Author Organization [facility] Address [address] [place] [address] Phone Care Team Providers Care Nozzle Tender Name Role Phone Unavailable Primary Care Provider Unavailabl e Encounter Details Date Type Department Care Team (Late st Contact Info) Description 03/13/2015 Legacy Encounter - Labs HISTORICAL CONVERSION [place] [address], [place] [address] ProviderYoav MD [facility] [place]Vincent [place] [phone] Social History Tobacco Use Types Packs/Day Years [...]
--- OUTSIDE RECORDS SUMMARY | 2024-09-19 17:57 | XMS_ITS | Encounter Summary ---
Author Organization [facility] Address [address] [place] [address] Phone Care Team Providers Care Forest Fire Prevention Manager Name Role Phone Unavailable Primary Care Provider Unavailabl e Encounter Details Date Type Department Care Team (Late st Contact Info) Description 03/29/2009 Legacy Encounter - Labs HISTORICAL CONVERSION [place] [phone], [place] [address] ProviderYoav MD [address] [place] [address] Social History Tobacco Use Types Packs/Day Years [...] LAB RESULT SCAN PROCEDURE 03/30/2009 12:00 AM PAPER MACHINE SUPERVISOR DPS CONVERSION - LAB RESULT SCAN PROCEDURE 03/29/2009 12:00 AM PAPER MACHINE SUPERVISOR documented in this encounter Results * DPS CONVERSION - LAB RESULT SCAN PROCEDURE (03/30/2009 12:00 AM PAPER MACHINE SUPERVISOR) Narrative 03/30/2009 12:00 AM PAPER MACHINE SUPERVISOR Ordered by an unspecified provider. Historical Provider LAB BLOOD ORDERABLES Day l Result * DPS CONVERSION - LAB RESULT SCAN PROCEDURE (03/29/2009 12:00 AM PAPER MACHINE SUPERVISOR) Narrative 03/29/2009 12:00 AM PAPER MACHINE SUPERVISOR Ordered by an unspecified provider. Historical Provider LAB BLOOD ORDERABLES Day l Result documented in this encounter Visit Diagnoses Not on filedocumented in this encounter
--- OUTSIDE RECORDS SUMMARY | 2024-09-19 17:57 | XMS_ITS | Encounter Summary ---
Author Organization [facility] Address [address] [place] [address] Phone Care Team Providers Care Subcontract Administrator Name Role Phone Unavailable Primary Care Provider Unavailabl e Encounter Details Date Type Department Care Team (Late st Contact Info) Description 06/11/2011 Legacy Encounter - Labs HISTORICAL CONVERSION [place] [address], [place] [address] ProviderYoav MD [facility] AnyJason [place] [phone] Social History Tobacco Use Types Packs/Day Years [...] LAB RESULT SCAN PROCEDURE 06/11/2011 12:00 AM PHARMACY CLERK documented in this encounter Results * DPS CONVERSION - LAB RESULT SCAN PROCEDURE (06/11/2011 12:00 AM PHARMACY CLERK) Narrative 06/11/2011 12:00 AM PHARMACY CLERK Ordered by an unspecified provider. us Historical Provider LAB BLOOD ORDERABLES Day l Result documented in this encounter Visit Diagnoses Not on filedocumented in this encounter
--- OUTSIDE RECORDS SUMMARY | 2024-09-19 17:57 | XMS_ITS | Encounter Summary ---
Author Organization [facility] Address [address] [place] [address] Phone Care Team Providers Care Human Resources Assistant Name Role Phone Unavailable Primary Care Provider Unavailabl e Encounter Details Date Type Department Care Team (Late st Contact Info) Description 03/27/2015 Clinical Support HISTORICAL [place] [id number] [address] ProviderYoav MD [facility] [place]Jerry [place] [phone] Social History Tobacco Use Types Packs/Day Years [...]
--- OUTSIDE RECORDS SUMMARY | 2024-09-19 17:57 | XMS_ITS | Encounter Summary ---
Author Organization [facility] Address [address] [place] [address] Phone Care Team Providers Care Institutional Asset Manager Name Role Phone Unavailable Primary Care Provider Unavailabl e Encounter Details Date Type Department Care Team (Late st Contact Info) Description 07/15/2011 Legacy Encounter - Labs HISTORICAL CONVERSION [place] [address], [place] [address] ProviderYoav MD [facility] AnyJim [place] [phone] Social History Tobacco Use Types Packs/Day Years Used Date Smoking Tobacco: Never Assessed Comments Unknown Sex and Gender Information Value Date Recorded Sex Assigned at Not on file Legal Sex Female 11:47 AM ESTEBAN Gender Identity Not on file Sexual Orientation Not on file documented as of this encounter Plan of Treatment Not on file documented as of this encounter Procedures Procedure Name Priority Date/Time Associated Diagnosis Comments DPS CONVERSION - LAB RESULT SCAN PROCEDURE 07/15/2011 12:00 AM VMWARE ADMINISTRATOR documented in this encounter Results * DPS CONVERSION - LAB RESULT SCAN PROCEDURE (07/15/2011 12:00 AM VMWARE ADMINISTRATOR) Narrative 07/15/2011 12:00 AM VMWARE ADMINISTRATOR Ordered by an unspecified provider. us Historical Provider LAB BLOOD ORDERABLES Day l Result documented in this encounter Visit Diagnoses Not on filedocumented in this encounter
--- OUTSIDE RECORDS SUMMARY | 2024-09-19 17:57 | XMS_ITS | Encounter Summary ---
Author Organization [facility] Address [address] [place] [address] Phone Care Team Providers Care Supervisor Webbing Name Role Phone Unavailable Primary Care Provider Unavailabl e Encounter Details Date Type Department Care Team (Late st Contact Info) Description 03/09/2014 Legacy Encounter - Labs HISTORICAL CONVERSION [place] [phone], [place] [address] ProviderYoav MD [facility] AnyJessica [place] [phone] Social History Tobacco Use Types Packs/Day Years [...]
--- OUTSIDE RECORDS SUMMARY | 2024-09-19 17:57 | XMS_ITS | Encounter Summary ---
Author Organization [facility] Address [address] [place] [address] Phone Care Team Providers Care Ror Engineer Name Role Phone Unavailable Primary Care Provider Unavailabl e Encounter Details Date Type Department Care Team (Late st Contact Info) Description 09/12/2010 Legacy Encounter - Labs HISTORICAL CONVERSION [place] [address], [place] [address] ProviderYoav MD [facility] [place] [address] Social History Tobacco Use Types Packs/Day Years [...]
--- OUTSIDE RECORDS SUMMARY | 2024-09-19 17:58 | XMS_ITS | Encounter Summary ---
Author Organization [facility] Address [address] [place] [address] Phone Care Team Providers Care Audit Intern Name Role Phone Unavailable Primary Care Provider Unavailabl e Encounter Details Date Type Department Care Team (Late st Contact Info) Description 10/05/2008 Legacy Encounter - Labs HISTORICAL CONVERSION [place] [address], [place] [address] ProviderYoav MD [facility] AnyKayla [place] [phone] Social History Tobacco Use Types Packs/Day Years [...]
--- OUTSIDE RECORDS SUMMARY | 2024-09-19 17:58 | XMS_ITS | Encounter Summary ---
Author Organization [facility] Address [address] [place] [address] Phone Care Team Providers Care Chemical Checker Name Role Phone Unavailable Primary Care Provider Unavailabl e Encounter Details Date Type Department Care Team (Late st Contact Info) Description 04/29/2006 Legacy Encounter - Labs HISTORICAL CONVERSION [place] [address], [place] [address] ProviderYoav MD [facility] [place] [address] Social History Tobacco Use Types Packs/Day Years [...] LAB RESULT SCAN PROCEDURE 04/29/2006 12:00 AM FRUIT GRADER OPERATOR DPS CONVERSION - LAB RESULT SCAN PROCEDURE 04/29/2006 12:00 AM FRUIT GRADER OPERATOR DPS CONVERSION - LAB RESULT SCAN PROCEDURE 04/29/2006 12:00 AM FRUIT GRADER OPERATOR documented in this encounter Results * DPS CONVERSION - LAB RESULT SCAN PROCEDURE (04/29/2006 12:00 AM FRUIT GRADER OPERATOR) Narrative 04/29/2006 12:00 AM FRUIT GRADER OPERATOR Ordered by an unspecified provider. us Historical Provider LAB BLOOD ORDERABLES Day l Result * DPS CONVERSION - LAB RESULT SCAN PROCEDURE (04/29/2006 12:00 AM FRUIT GRADER OPERATOR) Narrative 04/29/2006 12:00 AM FRUIT GRADER OPERATOR Ordered by an unspecified provider. us Historical Provider LAB BLOOD ORDERABLES Day l Result * DPS CONVERSION - LAB RESULT SCAN PROCEDURE (04/29/2006 12:00 AM FRUIT GRADER OPERATOR) Narrative 04/29/2006 12:00 AM FRUIT GRADER OPERATOR Ordered by an unspecified provider. us Historical Provider LAB BLOOD ORDERABLES Day l Result documented in this encounter Visit Diagnoses Not on filedocumented in this encounter
--- OUTSIDE RECORDS SUMMARY | 2024-09-19 17:58 | XMS_ITS | Encounter Summary ---
Author Organization [facility] Address [address] [place] [address] Phone Care Team Providers Care Production Laborer Name Role Phone Unavailable Primary Care Provider Unavailabl e Encounter Details Date Type Department Care Team (Late st Contact Info) Description 08/28/2006 Legacy Encounter - Labs HISTORICAL CONVERSION [place] [address], [place] [address] ProviderYoav MD [facility] [place] [phone] Social History Tobacco Use Types Packs/Day Years [...]
--- OUTSIDE RECORDS SUMMARY | 2024-09-19 17:58 | XMS_ITS | Encounter Summary ---
Author Organization [facility] Address [address] [place] [address] Phone Care Team Providers Care Plastering Contractor Name Role Phone Unavailable Primary Care Provider Unavailabl e Encounter Details Date Type Department Care Team (Late st Contact Info) Description 01/27/2006 Abstract HISTORICAL CONVERSION [place] [id number] ProviderYoav MD [facility] [place] [phone] Social History Tobacco Use Types Packs/Day Years [...]
--- OUTSIDE RECORDS SUMMARY | 2024-09-19 17:58 | XMS_ITS ---
Author Organization [facility] Address [address] [place], [place] [id number] Care Team Providers Care Clinical Biostatistics Director Name Role Phone RAMON GA Primary Care Provider [phone] MALICK STANTON Unavailable [phone] ALLERGIES Allergen (clinical drug ingredient) Drug/Non Drug Allergy documented on EMR Reaction Allergy Type Onset Date Status Substance with sulfonamide structure and antibacterial mechanism of action (substance) Sulfa Antibiotics stomach upset Drug Allergy Active REASON FOR REFERRAL Reason please order Cologua rd for pt Diagnosis 1 Encounter for screen ing for malignant neoplasm of colon (Z12.11) Referral Organization [facility] Referring Provider First Name MALICK Referring Provider Last Name MAXIMINO Referring Provider Speciality Preventive Medicine Referred [facility] Referred Address [address] [place], [id number], Referred Provider Specialty Diagnostic L aboratory General Notes JONO FULTON 09/22 09:49:16 AM >Order for Cologuard and demographics faxed to [facility] [phone]. Referral Priority Routine REASON FOR VISIT Annual [...] day for 30 days 09/04/2023 Active Nystatin 574997 UNIT/GM 1 application Externally Twice a day [...] Tobacco use: nonsmoker Section Notes: Lives in [place], [place] alone . Patient is diabled. VITAL SIGNS Blood pressure systolic 146 mm Hg 10/07/19 24 Blood pressure diastolic 82 mm Hg 024 Heart Rate 81 /min 10/07/2023 Height 64.5 in 10/07/2023 Weight 194.0 lbs 10/07/2023 BMI 32.78 kg/m2 10/07/2023 Oximetry 97 % 10/07/2023 Height-cm 163.83 cm 10/07/2023 Weight-kg 88 kg 10/07/2023 Encounters Encounter Location Date Provider Diagnosis [address] [id number] 10/07/2023 MALICK STANTON Encounter for genera l [...] after pt stabalized with rheumatology Referral to supervisor assembly and packing as well 10/07/2023 Other osteoporosis without current [...] e a day for 90 days Nystatin 155555 UNIT/GM 1 application Ex ternally Twice a [...] after pt stabalized with rheumatology Referral to supervisor assembly and packing as well Other osteoporosis without c urrent [...] please order Grace fregoso for pt , [address] [place] [address], [place], [phone], @[employer], Next Appt Details Follow Up: 3 Months, Reason: with repeat labs Progress Notes * BLANCA FANALEJANDROOB: 5 (57 yo F)Acc No.[id number]:10/07/2023 Progress Note Patient:??FABIANA FAN Provider:??MALICK STANTON NP :1965?Age:57 Y?Sex:Fe male Date:10/07/2023 Phone: Address:[address] [place] [address] [place], [address], [place], [place] Pcp:RAMON GA Subjective: * Chief Complaints: * ?Annual CPE, EKG * HPI: ?Patient Care Team:?Corrections Specialist:??Dr. Echeverria, Sherif Rheum , Dr. Echeverria, Sherif Rheum.? Providers/Specialists: Hematology: In [place]. ?Visit info:? Fabiana presents today for her [...] sleeping, substance abuse.? * Medical History:?? * Air Cargo Specialist History:??Menstrual hist ory:??LMP:?? Has not had period in 20 years,?Age of Menarche:??14.??Last pap smear date??15 years - normalAppt. 12/2023 for Annual @ [facility].??Last mammogram date??08/2023 @ [facility].?? * OB History:?? Histo ry:??Total pregnancies:??0.?? * Surgical History:??Bi latera l ankle surgery 2018Tonsillectomy [place] Teeth removal * Ocular Surgical History:?? * Hospitalization/Major Diagno stic Procedure:??B-lateral ankle surgery 2018 * Family History:??Father: dec eased, ALS.??Mother: alive, Hypertension.??Paternal Grandfather: , arthritis, Lupus.??Paternal Grandmother: , Unknown.??Maternal Grandfather: , Unknown.??Maternal Grandmother: , Unknown.??Sister: alive, Thyroid Disease.?? * Social History:?Tobacco Use:??Tobacco Use/Smoking??Tobacco use:??nonsmoker.?Drugs/Alcohol:??Do you smoke marijuana?: Denies. Do you drink alcohol?: No. ?Lives in [place], [place] alone. Patient is diabled. * Medications:??TakingZoledron [...] examination with abnormal findings?? Start Nystatin Powder, 210313 UNIT/GM, 1 application, Externally, Twice a day, [...] after pt stabalized with rheumatology Referral to supervisor assembly and packing as well? 13.??Other osteoporosis with out current [...] No Td/Tdap: Due Hep A/Hep B: [place] CERAMICS MACHINE OPERATOR: In december Mammogram: August 2023 Eye Exam: UTD Dental Exam: uTD Depression Scale: Negative Alcohol Misuse Screening: None Smoking Cessation: Nonsmoker Screened HTN, diabetes, BMI. * Follow Up:??3 Months (Reason : with repeat labs) Care Plan: * Problems:?? * Billing Information: * Visit Code:?? 44342 Preventive Care Est Pt. Age 40-64. * Procedure Codes:?? * Sign off status: Completed true * Provider:??MALICK STANTON NP Date:?? History and Physical Notes * HPI (History of Present Illness) Category Sub-Category Detail Notes Category Not es Patient Care Team Corrections Specialist: Brennon Odell Rheum , Sherif Odell Rheum Providers/Speciali sts: Hematology: In [place] Examination Category Sub-Category Detail Notes Category Not [...]
--- OUTSIDE RECORDS SUMMARY | 2024-09-19 17:58 | XMS_ITS | Encounter Summary ---
Author Organization [facility] Address [address] [place] [address] Phone Care Team Providers Care Tool And Production Planner Name Role Phone Unavailable Primary Care Provider Unavailabl e Encounter Details Date Type Department Care Team (Late st Contact Info) Description 01/30/2006 Legacy Encounter - Labs HISTORICAL CONVERSION [place] [phone], [place] [address] ProviderYoav MD [facility] [place] [phone] Social History Tobacco Use Types Packs/Day Years [...]
--- OUTSIDE RECORDS SUMMARY | 2024-09-19 17:58 | XMS_ITS | Encounter Summary ---
Author Organization [facility] Address [address] [place] [address] Phone Care Team Providers Care Forge Tender Name Role Phone Unavailable Primary Care Provider Unavailabl e Encounter Details Date Type Department Care Team (Late st Contact Info) Description 11/06/2006 Legacy Encounter - Labs HISTORICAL CONVERSION [place] [address], [place] [address] [place] [address] Social History Tobacco Use Types Packs/Day Years [...] AM CDT Ordered by an unspecified provider. [facility] Provider LAB BLOOD ORDERABLES Day l Result * DPS CONVERSION - LAB RESULT SCAN PROCEDURE (11/06/2006 12:00 AM CDT) Narrative 11/06/2006 12:00 AM CDT Ordered by an unspecified provider. [facility] Provider LAB BLOOD ORDERABLES Day l Result * DPS CONVERSION - LAB RESULT SCAN PROCEDURE (11/06/2006 12:00 AM CDT) Narrative 11/06/2006 12:00 AM CDT Ordered by an unspecified provider. [facility] Provider LAB BLOOD ORDERABLES Day l Result documented in this encounter Visit Diagnoses Not on filedocumented in this encounter
--- OUTSIDE RECORDS SUMMARY | 2024-09-19 17:58 | XMS_ITS | Encounter Summary ---
Author Organization [facility] Address [address] [place] [address] Phone Care Team Providers Care Paste Up Artist Apprentice Name Role Phone Unavailable Primary Care Provider Unavailabl e Encounter Details Date Type Department Care Team (Late st Contact Info) Description 09/18/2008 Legacy Encounter - Labs HISTORICAL CONVERSION [place] [phone], [place] [address] ProviderYoav MD [facility] [place] [phone] Social History Tobacco Use Types Packs/Day Years [...]
--- OUTSIDE RECORDS SUMMARY | 2024-09-19 17:58 | XMS_ITS | Encounter Summary ---
Author Organization [facility] Address [address] [place] [address] Phone Care Team Providers Care Technician Anatomic Pathology Name Role Phone Unavailable Primary Care Provider Unavailabl e Encounter Details Date Type Department Care Team (Late st Contact Info) Description 11/20/2005 Legacy Encounter - Labs HISTORICAL CONVERSION [place] [address], [place] [address] ProviderYoav MD [facility] [place] [phone] Social History Tobacco Use Types Packs/Day Years [...]
--- OUTSIDE RECORDS SUMMARY | 2024-09-19 17:58 | XMS_ITS ---
Author Organization [facility] Address [address] [place] [phone] Care Team Providers Care Nurses Assistant Name Role Phone HARMEET RAMON Primary Care Provider [phone] [facility] MALICK STANTON Unavailable [phone] REASON FOR VISIT Refills MEDICATIONS Medication SIG (Take, Route, Frequency, Duration) Notes Start Date End Date Status Metoprolol Succinate 25 MG 1 capsule Ora lly twice a day for 30 days 10/02/2023 Active Encounters Encounter Location Date Provider Diagnosis [facility] [address] [place], [place] [phone] 10/02/2023 MALICK STANTON PLAN OF TREATMENT Medication Medication Name Sig Start Date Stop Date Notes Metoprolol Succinate 25 MG 1 capsule Ora lly twice a day for 30 days 10/02/2023 Metoprolol Succinate 25 MG 1 capsule Orally Once a day Progress Notes * BLANCA FANALEJANDROOB: 5 (57 yo F)Acc No.[id number]:10/02/2023 Patient:??CHINTAN FAN :1965?Age:57 Y?Sex:Fe male Phone: Address:[address] [place] [address], [address], [place] [address] * Refills?? Stop Metoprolol Succinate Capsule ER 24 Hour Sprinkle, 25 MG, Orally, 1 capsule, Once a day Start Metoprolol Succinate Capsule ER 24 Hour Sprinkle, 25 MG, Orally, 60 Capsule, 1 capsule, twice a day, 30 days * true * Date:??
--- OUTSIDE RECORDS SUMMARY | 2024-09-19 17:58 | XMS_ITS | Encounter Summary ---
Author Organization [facility] Address [address] [place] [address] Phone Care Team Providers Care Healthcare Administrator Name Role Phone Unavailable Primary Care Provider Unavailabl e Encounter Details Date Type Department Care Team (Late st Contact Info) Description 08/18/2015 Legacy Encounter - Labs HISTORICAL CONVERSION [place] [address], [place] [address] ProviderYoav MD Counts include 234 beds at the [facility] [place] [phone] Social History Tobacco Use Types Packs/Day Years [...]
--- OUTSIDE RECORDS SUMMARY | 2024-09-19 17:58 | XMS_ITS | Encounter Summary ---
Author Organization [facility] Address [address] [place] [address] Phone Care Team Providers Care Oncology Rep Specialist Name Role Phone Unavailable Primary Care Provider Unavailabl e Encounter Details Date Type Department Care Team (Late st Contact Info) Description 03/26/2009 Abstract HISTORICAL CONVERSION [place] [id number] [address] ProviderYoav MD [facility] [place] [phone] Social History Tobacco Use Types Packs/Day Years [...]
--- OUTSIDE RECORDS SUMMARY | 2024-09-19 17:58 | XMS_ITS | Encounter Summary ---
Author Organization [facility] Address [address] [place] [address] Phone Care Team Providers Care Personnel Security Assistant Name Role Phone Unavailable Primary Care Provider Unavailabl e Encounter Details Date Type Department Care Team (Late st Contact Info) Description 10/28/2005 Legacy Encounter - Labs HISTORICAL CONVERSION [place] [address], [place] [address] ProviderYoav MD [facility] [place] [address] Social History Tobacco Use Types Packs/Day Years [...]
--- OUTSIDE RECORDS SUMMARY | 2024-09-19 17:58 | XMS_ITS | Encounter Summary ---
Author Organization [facility] Address [address] [place] [address] Phone Care Team Providers Care Manufacturing Technology Professor Name Role Phone Unavailable Primary Care Provider Unavailabl e Encounter Details Date Type Department Care Team (Late st Contact Info) Description 07/28/2006 Legacy Encounter - Labs HISTORICAL CONVERSION [place] [phone], [place] [address] ProviderYoav MD [address] [place] [address] Social History Tobacco Use Types Packs/Day Years [...] LAB RESULT SCAN PROCEDURE 07/28/2006 12:00 AM HEALTHCARE INSURANCE SALES AGENT DPS CONVERSION - LAB RESULT SCAN PROCEDURE 07/28/2006 12:00 AM HEALTHCARE INSURANCE SALES AGENT documented in this encounter Results * DPS CONVERSION - LAB RESULT SCAN PROCEDURE (07/28/2006 12:00 AM HEALTHCARE INSURANCE SALES AGENT) Narrative 07/28/2006 12:00 AM HEALTHCARE INSURANCE SALES AGENT Ordered by an unspecified provider. Historical Provider LAB BLOOD ORDERABLES Day l Result * DPS CONVERSION - LAB RESULT SCAN PROCEDURE (07/28/2006 12:00 AM HEALTHCARE INSURANCE SALES AGENT) Narrative 07/28/2006 12:00 AM HEALTHCARE INSURANCE SALES AGENT Ordered by an unspecified provider. Historical Provider LAB BLOOD ORDERABLES Day l Result documented in this encounter Visit Diagnoses Not on filedocumented in this encounter
--- OUTSIDE RECORDS SUMMARY | 2024-09-19 17:58 | XMS_ITS | Encounter Summary ---
Author Organization [facility] Address [address] [place] [address] Phone Care Team Providers Care Sales Project Administrator Name Role Phone Unavailable Primary Care Provider Unavailabl e Encounter Details Date Type Department Care Team (Late st Contact Info) Description 05/04/2006 Legacy Encounter - Labs HISTORICAL CONVERSION [place] [address], [place] [address] ProviderYoav MD [facility] [place] [phone] Social History Tobacco Use Types Packs/Day Years [...] LAB RESULT SCAN PROCEDURE 05/04/2006 12:00 AM ROLL SCALE MAN documented in this encounter Results * DPS CONVERSION - LAB RESULT SCAN PROCEDURE (05/04/2006 12:00 AM ROLL SCALE MAN) Narrative 05/04/2006 12:00 AM ROLL SCALE MAN Ordered by an unspecified provider. us Historical Provider LAB BLOOD ORDERABLES Day l Result documented in this encounter Visit Diagnoses Not on filedocumented in this encounter
--- OUTSIDE RECORDS SUMMARY | 2024-09-19 17:58 | XMS_ITS | Patient Health Record ---
Author Organization [facility] Address [address] [place], [place] [phone] Care Team Providers Care Round Kiln Drawer Name Role Phone RAMON GA Primary Care Provider [phone] MALICK STANTON Unavailable [phone] ALLERGIES Allergen (clinical drug ingredient) Drug/Non Drug Allergy documented on EMR Reaction Allergy Type Onset Date Status Substance with sulfonamide structure and antibacterial mechanism of action (substance) Sulfa Antibiotics stomach upset Drug Allergy Active REASON FOR REFERRAL Reason please order Cologua rd for pt Diagnosis 1 Encounter for screen ing for malignant neoplasm of colon (Z12.11) Referral Organization [facility] Referring Provider First Name MALICK Referring Provider Last Name MAXIMINO Referring Provider Speciality Preventive Medicine Referred Organization [facility] Referred Address [address] [place], [id number], Referred Provider Specialty Diagnostic L aboratory General Notes JONO FULTON 09/22 09:49:16 AM >Order for Cologuard and demographics faxed to [employer] [phone]. Referral Priority Routine MEDICATIONS Medication SIG (Take, [...] Thre e times a Week Active Nystatin 328327 UNIT/GM 1 application Externally Twice a day [...] Tobacco use: nonsmoker Section Notes: Lives in [place], [place] alone . Patient is diabled. Lives in [place], [place] alone . Patient is diabled. Lives in [place] alone . Patient is diabled. Lives in [place] alone . Patient is diabled. Lives in [place] alone . Patient is diabled. Lives in [place] alone . Patient is diabled. PROBLEMS Problem Type ICD Code Onset Dates Problem Status W/U Status Risk SNOMED Code Notes Problem Essential (primary) hypertension (I10) Active confirmed 98617239 Problem Other osteoporosis without current pathological fracture (M81.8) Active confirmed 09294506 Problem Proteinuria, unspecified (R80.9) Active confirmed 90669704 Problem Prediabetes (R73.03) Active confirmed 150372676 Problem Sjogren syndrome with inflammatory arthritis (M35.05) Active confirmed 16728817 Problem Iron deficiency anemia, unspecified iron deficiency anemia type (D50.9) Active confirmed 27956201 Problem Elevated high sensitivity C-reactive protein (R79.82) Active confirmed 219959864092240 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 63863441 Problem Obesity (BMI 30-39.9) (E66.9) Active confirmed 489300296 Problem Lupus (M32.9) Active confirmed 74701159 3 Problem Psoriatic arthritis (L40.50) Active confirmed 225455830 Problem Uncomplicated opioid dependence (F11.20) Active confirmed 97703800 VITAL SIGNS Heart Rate 81 /min 10/07/2023 Height-cm 163.83 cm 10/07/2023 Oximetry 97 % 10/07/2023 Blood pressure diastolic 82 mm Hg 10/07/2023 Weight-kg 88 kg 10/07/2023 Height 64.5 in 10/07/2023 Blood pressure systolic 146 mm Hg 10/07/2023 Weight 194.0 lbs 10/07/2023 BMI 32.78 kg/m2 10/07/2023 Encounters Encounter Location Date Provider Diagnosis [address] [id number] 10/07/2023 MALICK STANTON Encounter for genera l [...] C-reactive protein R79.82 and Beena infection B37.[address] [id number] 10/02/2023 MALICK STANTON [address] [id number] 10/05/2023 MALICK STANTON ASSESSMENTS Encounter Date Diagnosis [...] after pt stabalized with rheumatology Referral to pipeline executive as well 10/07/2023 Other osteoporosis without current [...] PANEL, STANDARD (7600) 04/07/2023 COMPREHENSIVE METABOLIC PANEL (35468) CBC (H/H, RBC, INDICES, WBC, PLT) (1759) 04/07/2023 CARDIO IQ(R) HS CRP (33933) 04/07/2023 HEMOGLOBIN A1c (496) 04/07/2023 INSULIN (561) 04/07/2023 Insurance Providers Payer Name Payer Address Payer Phone Subscriber Number Group Number Insured Name Patient Relationship to Insured Coverage Start Date Coverage End Date AAR Medicare Advantag e [address] [address] [place], [place] [id number] CHINTAN FAN Self - patient is the insured [facility] [address] [place] [address] [phone] [id number] CHINTAN FAN Self - patient is the insured MEDICAL (GENERAL) HISTORY Medical History History ICD Code Lupus Psoriatic Arthritis Philipp's Disease Sjogren's Syndrome Hypertension Chicken Pox Shingles Surgical History Surgery Date(Month/Year) Bi lateral ankle surgery 2018 Tonsillectomy [place] Teeth removal Hospitalization History Reason Date(Month/Year) B-lateral ankle surgery 2017
[2024-09-20 08:45] LABS: HBS Num1 0.47 mIU/mL (0-7.99); HBc Num1 0.11 S/CO (0.00-0.79); HBsAGNum1 0.39 S/CO (0.00-0.99); Hepatitis A Antibody IgM 0.22 Index (0-0.79); Hepatitis B Core Antibody Nonreactive (Nonreactive); Hepatitis B Surface Antigen Negative (Negative); ~HepC Num1 0.28 S/CO (0.00-0.79); ~Hepatitis A Antibody IgM Nonreactive (Nonreactive); ~Hepatitis B Surface Antibody NONREACTIVE (Nonreactive); ~Hepatitis C Antibody Nonreactive (Nonreactive)
[2024-09-21 18:08] LABS: TS Negative Control Passed; TS Panel A 0; TS Panel B 0; TS Positive Control Passed; TSpotTB Negative (Negative)
== END 2024-09-19 15:06 | disposition home or self-care (01) ==
LOC: HO.LAB 15:05
PROVIDERS: PCP Nurse Practitioner Family; Visit Provider Student in an Organized Health Care Education/Training Program
DX: L40.50 Arthropathic psoriasis, unspecified (principal); Z79.60 Long term (current) use of unspecified immunomodulators and immunosuppressants; E55.9 Vitamin D deficiency, unspecified; Z11.1 Encounter for screening for respiratory tuberculosis
CPT/HCPCS: 36415; 80053; 82306; 85025; 85652; 86140; 86481; 86704; 86706; 86709; 86803; 87340

== ENCOUNTER 2024-09-21 13:50 | Outpatient (REF) | payer MEDICARE, MEDICAID, SELFPAY ==
[2024-09-21 14:59] LABS: Appearance Urine Clear; Color Urine Yellow; Glucose Urine UA Negative (Negative); Leukocyte Esterase Urine Negative (Negative); Nitrite Urine Negative (Negative); PH 5.5 (5.0-9.0); Specific Gravity - Urine 1.025 (1.005-1.025); Urine Blood Negative (Negative); Urine Ketones Negative (Negative); Urine Protein Trace mg/dL (Neg-Trace)
--- OUTSIDE RECORDS SUMMARY | 2024-09-21 15:58 | XMS_ITS | Encounter Summary ---
Author Organization [facility] Address [address] [place] [address]872 Phone Care Team Providers Care Commercial Solar Sales Consultant Name Role Phone Unavailable Primary Care Provider Unavailabl e Encounter Details Date Type Department Care Team (Late st Contact Info) Description 10/23/2009 Legacy Encounter - Labs HISTORICAL CONVERSION [place] [address], [place] [address] ProviderYoav MD [facility] AnySherry [place] [phone] Social History Tobacco Use Types Packs/Day Years [...]
--- OUTSIDE RECORDS SUMMARY | 2024-09-21 15:58 | XMS_ITS | Clinical Summary ---
Author Organization [facility] Address [address] [place] [address] Phone Care Team Providers Care Architecture Intern Name Role Phone Unavailable Primary Care [...] Active -Hx Entry 5 Active HYDROcodone-ac etaminophen ([place]) 10-325 MG per tablet [place]( 10-325MG Oral 1 as needed ) Active [...] Comments Blood Pressure 122/74 03/27/2015 12:01 AM CLERICAL SUPPORT Pulse 80 03/27/2015 12:01 AM CLERICAL SUPPORT Temperature - - Respiratory Rate - - Oxygen Saturation - - Inhaled Oxygen Concentration - - Weight 68.9 kg (152 lb) 03/27/2015 12:01 AM CLERICAL SUPPORT Height 162.6 cm (5' 4 ) 03/27/2015 12:01 AM CLERICAL SUPPORT Body Mass Index 26.09 03/27/2015 12:01 AM CLERICAL SUPPORT Plan of Treatment Not on file Insurance [employer]URANCE
--- OUTSIDE RECORDS SUMMARY | 2024-09-21 15:58 | XMS_ITS | Encounter Summary ---
Author Organization [facility] Address [address] [place] [address] Phone Care Team Providers Care Direct Support Professional Home Health Name Role Phone Unavailable Primary Care Provider Unavailabl e Encounter Details Date Type Department Care Team (Late st Contact Info) Description 03/01/2012 Legacy Encounter - Labs HISTORICAL CONVERSION [place] [address], [place] [address] ProviderYoav MD [facility] AnyKenneth [place] [phone] Social History Tobacco Use Types Packs/Day Years [...]
--- OUTSIDE RECORDS SUMMARY | 2024-09-21 15:58 | XMS_ITS | Encounter Summary ---
Author Organization [facility] Address [address] [place] [address] Phone Care Team Providers Care Thread Pulling Machine Attendant Name Role Phone Unavailable Primary Care Provider Unavailabl e Encounter Details Date Type Department Care Team (Late st Contact Info) Description 03/27/2015 Clinical Support HISTORICAL [place] [id number] [address] ProviderYoav MD [facility] AnyRoy [place] [phone] Social History Tobacco Use Types Packs/Day Years [...]
--- OUTSIDE RECORDS SUMMARY | 2024-09-21 15:58 | XMS_ITS | Encounter Summary ---
Author Organization [facility] Address [address] [place] [address] Phone Care Team Providers Care Supervisor Public Health Nursing Name Role Phone Unavailable Primary Care Provider Unavailabl e Encounter Details Date Type Department Care Team (Late st Contact Info) Description 11/19/2009 Legacy Encounter - Labs HISTORICAL CONVERSION [place] [phone], [place] [address] ProviderYoav MD [facility] [place] [phone] Social History Tobacco Use Types Packs/Day Years [...]
--- OUTSIDE RECORDS SUMMARY | 2024-09-21 15:58 | XMS_ITS | Encounter Summary ---
Author Organization [facility] Address [address] [place] [address] Phone Care Team Providers Care Group Teacher Name Role Phone Unavailable Primary Care Provider Unavailabl e Encounter Details Date Type Department Care Team (Late st Contact Info) Description 08/17/2015 Legacy Encounter - Labs HISTORICAL CONVERSION [place] [phone], [place] [address] ProviderYoav MD [facility] [place] [phone] Social History Tobacco Use Types Packs/Day Years [...]
--- OUTSIDE RECORDS SUMMARY | 2024-09-21 15:58 | XMS_ITS | Encounter Summary ---
Author Organization [facility] Address [address] [place] [address] Phone Care Team Providers Care Customer Engagement Specialist Name Role Phone Unavailable Primary Care Provider Unavailabl e Encounter Details Date Type Department Care Team (Late st Contact Info) Description 09/12/2010 Legacy Encounter - Labs HISTORICAL CONVERSION [place] [phone], [place] [address] ProviderYoav MD Replaced by [facility] [place] [address] Social History Tobacco Use Types Packs/Day Years [...]
--- OUTSIDE RECORDS SUMMARY | 2024-09-21 15:58 | XMS_ITS | Clinical Summary ---
Author Organization [facility] Address [address] [place] [address] Care Team Providers Care Nursing Home Admissions Director Name Role Phone Pcp, No Primary Care [...] , 02/20/2012 Insurance [employer] MGD MEDICARE [facility] Care Teams Nursing Home Admissions Director Relationship Specialty Start Date End Date Pcp, No PCP - General General Medicine 05/27/24
--- OUTSIDE RECORDS SUMMARY | 2024-09-21 15:58 | XMS_ITS | Encounter Summary ---
Author Organization [facility] Address [address] [place] [address] Phone Care Team Providers Care Pump Installation And Servicer Name Role Phone Unavailable Primary Care Provider Unavailabl e Encounter Details Date Type Department Care Team (Late st Contact Info) Description 09/01/2012 Legacy Encounter - Labs HISTORICAL CONVERSION [place] [address], [place] [address] ProviderYoav MD [facility] [place] [address] Social History Tobacco Use Types Packs/Day Years [...]
--- OUTSIDE RECORDS SUMMARY | 2024-09-21 15:58 | XMS_ITS | Encounter Summary ---
Author Organization [facility] Address [address] [place] [address] Phone Care Team Providers Care Site Medical Director Name Role Phone Unavailable Primary Care Provider Unavailabl e Encounter Details Date Type Department Care Team (Late st Contact Info) Description 03/28/2015 Abstract HISTORICAL CONVERSION [place] [phone] ProviderYoav MD [facility] [place] [phone] Social History Tobacco Use Types Packs/Day Years [...]
--- OUTSIDE RECORDS SUMMARY | 2024-09-21 15:58 | XMS_ITS | Encounter Summary ---
Author Organization [facility] Address [address] [place] [address] Phone Care Team Providers Care Nutrition Helper Name Role Phone Unavailable Primary Care Provider Unavailabl e Encounter Details Date Type Department Care Team (Late st Contact Info) Description 01/18/2014 Legacy Encounter - Labs HISTORICAL CONVERSION [place] [phone], [place] [address] ProviderYoav MD [facility] [place] [phone] Social History Tobacco Use Types Packs/Day Years [...]
--- OUTSIDE RECORDS SUMMARY | 2024-09-21 15:58 | XMS_ITS | Encounter Summary ---
Author Organization [facility] Address [address] [place] [address] Phone Care Team Providers Care Senior Writer Name Role Phone Unavailable Primary Care Provider Unavailabl e Encounter Details Date Type Department Care Team (Late st Contact Info) Description 06/18/2009 Legacy Encounter - Labs HISTORICAL CONVERSION [place] [phone], [place] [address] ProviderYoav MD [facility] [place] [phone] Social History Tobacco Use Types Packs/Day Years [...] LAB RESULT SCAN PROCEDURE 06/18/2009 12:00 AM OPERATIONS LEADER documented in this encounter Results * DPS CONVERSION - LAB RESULT SCAN PROCEDURE (06/18/2009 12:00 AM OPERATIONS LEADER) Narrative 06/18/2009 12:00 AM OPERATIONS LEADER Ordered by an unspecified provider. us Historical Provider LAB BLOOD ORDERABLES Day l Result documented in this encounter Visit Diagnoses Not on filedocumented in this encounter
--- OUTSIDE RECORDS SUMMARY | 2024-09-21 15:58 | XMS_ITS | Encounter Summary ---
Author Organization [facility] Address [address] [place] [address] Phone Care Team Providers Care Wing Scorer Name Role Phone Unavailable Primary Care Provider Unavailabl e Encounter Details Date Type Department Care Team (Late st Contact Info) Description 12/24/2012 Legacy Encounter - Labs HISTORICAL CONVERSION [place] [phone], [place] [address] ProviderYoav MD [facility] [place] [phone] Social History Tobacco Use Types Packs/Day Years [...]
--- OUTSIDE RECORDS SUMMARY | 2024-09-21 15:58 | XMS_ITS | Encounter Summary ---
Author Organization [facility] Address [address] [place] [address] Phone Care Team Providers Care Payroll And Benefits Manager Name Role Phone Unavailable Primary Care Provider Unavailabl e Encounter Details Date Type Department Care Team (Late st Contact Info) Description 06/14/2012 Legacy Encounter - Labs HISTORICAL CONVERSION [place] [address], [place] [address] ProviderYoav MD [facility] [place]Kevin [place] [phone] Social History Tobacco Use Types Packs/Day Years [...] LAB RESULT SCAN PROCEDURE 06/14/2012 12:00 AM ADDICTION TREATMENT COUNSELOR documented in this encounter Results * DPS CONVERSION - LAB RESULT SCAN PROCEDURE (06/14/2012 12:00 AM ADDICTION TREATMENT COUNSELOR) Narrative 06/14/2012 12:00 AM ADDICTION TREATMENT COUNSELOR Ordered by an unspecified provider. us Historical Provider LAB BLOOD ORDERABLES Day l Result documented in this encounter Visit Diagnoses Not on filedocumented in this encounter
--- OUTSIDE RECORDS SUMMARY | 2024-09-21 15:58 | XMS_ITS | Encounter Summary ---
Author Organization [facility] Address [address] [place] [address] Phone Care Team Providers Care Art Sales Consultant Name Role Phone Unavailable Primary Care Provider Unavailabl e Encounter Details Date Type Department Care Team (Late st Contact Info) Description 10/22/2012 Legacy Encounter - Labs HISTORICAL CONVERSION [place] [phone], [place] [address] ProviderYoav MD [facility] [place] [phone] Social History Tobacco Use Types Packs/Day Years [...]
--- OUTSIDE RECORDS SUMMARY | 2024-09-21 15:58 | XMS_ITS | Encounter Summary ---
Author Organization [facility] Address [address] [place] [address] Phone Care Team Providers Care Patcher Bowling Ball Name Role Phone Unavailable Primary Care Provider Unavailabl e Encounter Details Date Type Department Care Team (Late st Contact Info) Description 03/29/2009 Legacy Encounter - Labs HISTORICAL CONVERSION [place] [phone], [place] [address] ProviderYoav MD [address] [place] [address] Social History Tobacco Use Types Packs/Day Years [...] LAB RESULT SCAN PROCEDURE 03/30/2009 12:00 AM FABRIC FINISHER DPS CONVERSION - LAB RESULT SCAN PROCEDURE 03/29/2009 12:00 AM FABRIC FINISHER documented in this encounter Results * DPS CONVERSION - LAB RESULT SCAN PROCEDURE (03/30/2009 12:00 AM FABRIC FINISHER) Narrative 03/30/2009 12:00 AM FABRIC FINISHER Ordered by an unspecified provider. Historical Provider LAB BLOOD ORDERABLES Day l Result * DPS CONVERSION - LAB RESULT SCAN PROCEDURE (03/29/2009 12:00 AM FABRIC FINISHER) Narrative 03/29/2009 12:00 AM FABRIC FINISHER Ordered by an unspecified provider. Historical Provider LAB BLOOD ORDERABLES Day l Result documented in this encounter Visit Diagnoses Not on filedocumented in this encounter
--- OUTSIDE RECORDS SUMMARY | 2024-09-21 15:58 | XMS_ITS | Encounter Summary ---
Author Organization [facility] Address [address] [place] [address] Phone Care Team Providers Care Powerhouse Engineer Name Role Phone Unavailable Primary Care Provider Unavailabl e Encounter Details Date Type Department Care Team (Late st Contact Info) Description 01/20/2013 Legacy Encounter - Labs HISTORICAL CONVERSION [place] [phone], [place] [address] ProviderYoav MD [facility] [place]Deborah [place] [phone] Social History Tobacco Use Types Packs/Day Years [...]
--- OUTSIDE RECORDS SUMMARY | 2024-09-21 15:58 | XMS_ITS | Encounter Summary ---
Author Organization [facility] Address [address] [place] [address] Phone Care Team Providers Care Electronics Assembler Name Role Phone Unavailable Primary Care Provider Unavailabl e Encounter Details Date Type Department Care Team (Late st Contact Info) Description 08/18/2015 Legacy Encounter - Labs HISTORICAL CONVERSION [place] [phone], [place] [address] ProviderYoav MD [facility] [place] [phone] Social History Tobacco Use Types Packs/Day Years [...]
--- OUTSIDE RECORDS SUMMARY | 2024-09-21 15:58 | XMS_ITS | Encounter Summary ---
Author Organization [facility] Address [address] [place] [address] Phone Care Team Providers Care Rolling Chair Pusher Name Role Phone Unavailable Primary Care Provider Unavailabl e Encounter Details Date Type Department Care Team (Late st Contact Info) Description 11/01/2013 Abstract HISTORICAL CONVERSION [place] [phone] ProviderYoav MD [facility] [place]Bever[place] [phone] Social History Tobacco Use Types Packs/Day Years [...]
--- OUTSIDE RECORDS SUMMARY | 2024-09-21 15:58 | XMS_ITS | Encounter Summary ---
Author Organization [facility] Address [address] [place] [address] Phone Care Team Providers Care Information Technology Professor Name Role Phone Unavailable Primary Care Provider Unavailabl e Encounter Details Date Type Department Care Team (Late st Contact Info) Description 02/13/2014 Legacy Encounter - Labs HISTORICAL CONVERSION [place] [address], [place] [address] ProviderYoav MD [facility] [place]Christine [place] [phone] Social History Tobacco Use Types Packs/Day Years [...]
--- OUTSIDE RECORDS SUMMARY | 2024-09-21 15:58 | XMS_ITS | Encounter Summary ---
Author Organization [facility] Address [address] [place] [address] Phone Care Team Providers Care Supervisor Leaf Spring Fab[employer]ation Name Role Phone Unavailable Primary Care Provider Unavailabl e Encounter Details Date Type Department Care Team (Late st Contact Info) Description 09/13/2012 Legacy Encounter - Labs HISTORICAL CONVERSION [place] [phone], [place] [address] ProviderYoav MD [facility] [place] [address] Social History Tobacco Use Types Packs/Day Years [...]
--- OUTSIDE RECORDS SUMMARY | 2024-09-21 15:58 | XMS_ITS | Encounter Summary ---
Author Organization [facility] Address [address] [place] [address] Phone Care Team Providers Care Pile Driving Setter Name Role Phone Unavailable Primary Care Provider Unavailabl e Encounter Details Date Type Department Care Team (Late st Contact Info) Description 06/29/2012 Legacy Encounter - Labs HISTORICAL CONVERSION [place] [phone], [place] [address] ProviderYoav MD [facility] AnyKelly [place] [phone] Social History Tobacco Use Types Packs/Day Years [...] LAB RESULT SCAN PROCEDURE 06/29/2012 12:00 AM PRIMER ASSEMBLER documented in this encounter Results * DPS CONVERSION - LAB RESULT SCAN PROCEDURE (06/29/2012 12:00 AM PRIMER ASSEMBLER) Narrative 06/29/2012 12:00 AM PRIMER ASSEMBLER Ordered by an unspecified provider. us Historical Provider LAB BLOOD ORDERABLES Day l Result documented in this encounter Visit Diagnoses Not on filedocumented in this encounter
--- OUTSIDE RECORDS SUMMARY | 2024-09-21 15:58 | XMS_ITS | Encounter Summary ---
Author Organization [facility] Address [address] [place] [address] Phone Care Team Providers Care Infrastructure Security Architect Name Role Phone Unavailable Primary Care Provider Unavailabl e Encounter Details Date Type Department Care Team (Late st Contact Info) Description 10/29/2013 Legacy Encounter - Labs HISTORICAL CONVERSION [place] [address], [place] [address] ProviderYoav MD [facility] AnyTimothy [place] [phone] Social History Tobacco Use Types Packs/Day Years [...]
--- OUTSIDE RECORDS SUMMARY | 2024-09-21 15:58 | XMS_ITS | Encounter Summary ---
Author Organization [facility] Address [address] [place] [address] Phone Care Team Providers Care Accident Examiner Name Role Phone Unavailable Primary Care Provider Unavailabl e Encounter Details Date Type Department Care Team (Late st Contact Info) Description 03/13/2015 Legacy Encounter - Labs HISTORICAL CONVERSION [place] [phone], [place] [address] ProviderYoav MD [facility] AnyBradley [place] [phone] Social History Tobacco Use Types Packs/Day Years [...]
--- OUTSIDE RECORDS SUMMARY | 2024-09-21 15:58 | XMS_ITS | Encounter Summary ---
Author Organization [facility] Address [address] [place] [address] Phone Care Team Providers Care Nurse Staff Name Role Phone Unavailable Primary Care Provider Unavailabl e Encounter Details Date Type Department Care Team (Late st Contact Info) Description 03/23/2014 Legacy Encounter - Labs HISTORICAL CONVERSION [place] [address], [place] [address] ProviderYoav MD [facility] AnyChristine [place] [phone] Social History Tobacco Use Types Packs/Day Years [...]
--- OUTSIDE RECORDS SUMMARY | 2024-09-21 15:58 | XMS_ITS | Encounter Summary ---
Author Organization [facility] Address [address] [place] [address] Phone Care Team Providers Care Co Pilot Name Role Phone Unavailable Primary Care Provider Unavailabl e Encounter Details Date Type Department Care Team (Late st Contact Info) Description 07/06/2009 Abstract HISTORICAL CONVERSION Jeff [place] [phone] ProviderYoav MD [facility] AnyJohn [place] [phone] Social History Tobacco Use Types Packs/Day Years [...]
--- OUTSIDE RECORDS SUMMARY | 2024-09-21 15:58 | XMS_ITS | Encounter Summary ---
Author Organization [facility] Address [address] [place] [address] Phone Care Team Providers Care Cut To Length Operator Name Role Phone Unavailable Primary Care Provider Unavailabl e Encounter Details Date Type Department Care Team (Late st Contact Info) Description 06/06/2013 Abstract HISTORICAL CONVERSION Norma [place] [phone] ProviderYoav MD [facility] AnyJamie [place] [phone] Social History Tobacco Use Types Packs/Day Years [...]
--- OUTSIDE RECORDS SUMMARY | 2024-09-21 15:58 | XMS_ITS | Encounter Summary ---
Author Organization [facility] Address [address] [place] [address] Phone Care Team Providers Care Room Service Waiter/Waitress Name Role Phone Unavailable Primary Care Provider Unavailabl e Encounter Details Date Type Department Care Team (Late st Contact Info) Description 01/09/2014 Legacy Encounter - Labs HISTORICAL CONVERSION [place] [phone], [place] [address] ProviderYoav MD [facility] AnyMartin [place] [phone] Social History Tobacco Use Types Packs/Day Years [...]
--- OUTSIDE RECORDS SUMMARY | 2024-09-21 15:58 | XMS_ITS | Encounter Summary ---
Author Organization [facility] Address [address] [place] [address] Phone Care Team Providers Care Welder Tack Name Role Phone Unavailable Primary Care Provider Unavailabl e Encounter Details Date Type Department Care Team (Late st Contact Info) Description 03/09/2014 Legacy Encounter - Labs HISTORICAL CONVERSION [place] [phone], [place] [address] ProviderYoav MD [facility] AnyRaymond [place] [phone] Social History Tobacco Use Types Packs/Day Years [...]
--- OUTSIDE RECORDS SUMMARY | 2024-09-21 15:58 | XMS_ITS | Encounter Summary ---
Author Organization [facility] Address [address] [place] [address] Phone Care Team Providers Care Margarine Maker Name Role Phone Unavailable Primary Care Provider Unavailabl e Encounter Details Date Type Department Care Team (Late st Contact Info) Description 08/07/2012 Legacy Encounter - Labs HISTORICAL CONVERSION [place] [phone], [place] [address] ProviderYoav MD [facility] [place]Kristina [place] [phone] Social History Tobacco Use Types Packs/Day Years [...]
--- OUTSIDE RECORDS SUMMARY | 2024-09-21 15:58 | XMS_ITS | Encounter Summary ---
Author Organization [facility] Address [address] [place] [address] Phone Care Team Providers Care Cellars Supervisor Name Role Phone Unavailable Primary Care Provider Unavailabl e Encounter Details Date Type Department Care Team (Late st Contact Info) Description 06/11/2011 Legacy Encounter - Labs HISTORICAL CONVERSION [place] [phone], [place] [address] ProviderYoav MD [facility] AnyAmy [place] [phone] Social History Tobacco Use Types Packs/Day Years [...] LAB RESULT SCAN PROCEDURE 06/11/2011 12:00 AM MATERNAL FETAL PHYSICIAN documented in this encounter Results * DPS CONVERSION - LAB RESULT SCAN PROCEDURE (06/11/2011 12:00 AM MATERNAL FETAL PHYSICIAN) Narrative 06/11/2011 12:00 AM MATERNAL FETAL PHYSICIAN Ordered by an unspecified provider. us Historical Provider LAB BLOOD ORDERABLES Day l Result documented in this encounter Visit Diagnoses Not on filedocumented in this encounter
--- OUTSIDE RECORDS SUMMARY | 2024-09-21 15:58 | XMS_ITS | Encounter Summary ---
Author Organization [facility] Address [address] [place] [address] Phone Care Team Providers Care Topstitcher Lockstitch Name Role Phone Unavailable Primary Care Provider Unavailabl e Encounter Details Date Type Department Care Team (Late st Contact Info) Description 07/15/2011 Legacy Encounter - Labs HISTORICAL CONVERSION [place] [phone], [place] [address] ProviderYoav MD [facility] AnyMaria [place] [phone] Social History Tobacco Use Types Packs/Day Years [...] LAB RESULT SCAN PROCEDURE 07/15/2011 12:00 AM PIGMENT AND LACQUER MIXER documented in this encounter Results * DPS CONVERSION - LAB RESULT SCAN PROCEDURE (07/15/2011 12:00 AM PIGMENT AND LACQUER MIXER) Narrative 07/15/2011 12:00 AM PIGMENT AND LACQUER MIXER Ordered by an unspecified provider. us Historical Provider LAB BLOOD ORDERABLES Day l Result documented in this encounter Visit Diagnoses Not on filedocumented in this encounter
--- OUTSIDE RECORDS SUMMARY | 2024-09-21 15:59 | XMS_ITS | Encounter Summary ---
Author Organization [facility] Address [address] [place] [address] Phone Care Team Providers Care Migration Agent Name Role Phone Unavailable Primary Care Provider Unavailabl e Encounter Details Date Type Department Care Team (Late st Contact Info) Description 01/30/2006 Legacy Encounter - Labs HISTORICAL CONVERSION [place] [address], [place] [address] ProviderYoav MD [facility] AnyPatricia [place] [phone] Social History Tobacco Use Types Packs/Day Years [...]
--- OUTSIDE RECORDS SUMMARY | 2024-09-21 15:59 | XMS_ITS | Encounter Summary ---
Author Organization [facility] Address [address] [place] [address] Phone Care Team Providers Care Director Of Casework Department Name Role Phone Unavailable Primary Care Provider Unavailabl e Encounter Details Date Type Department Care Team (Late st Contact Info) Description 09/18/2008 Legacy Encounter - Labs HISTORICAL CONVERSION [place] [address], [place] [address] ProviderYoav MD [facility] AnyErica [place] [phone] Social History Tobacco Use Types Packs/Day Years [...]
--- OUTSIDE RECORDS SUMMARY | 2024-09-21 15:59 | XMS_ITS | Encounter Summary ---
Author Organization [facility] Address [address] [place] [address] Phone Care Team Providers Care Varnishing Unit Tool Setter Name Role Phone Unavailable Primary Care Provider Unavailabl e Encounter Details Date Type Department Care Team (Late st Contact Info) Description 10/28/2005 Legacy Encounter - Labs HISTORICAL CONVERSION [place] [phone], [place] [address] ProviderYoav MD [facility] [place] [address] Social History Tobacco Use Types Packs/Day Years [...]
--- OUTSIDE RECORDS SUMMARY | 2024-09-21 15:59 | XMS_ITS | Encounter Summary ---
Author Organization [facility] Address [address] [place] [address] Phone Care Team Providers Care Sterilisation Technician Name Role Phone Unavailable Primary Care Provider Unavailabl e Encounter Details Date Type Department Care Team (Late st Contact Info) Description 01/27/2006 Abstract HISTORICAL CONVERSION Ruth [place] [phone] ProviderYoav MD [facility] AnyKelly [place] [phone] Social History Tobacco Use Types Packs/Day Years [...]
--- OUTSIDE RECORDS SUMMARY | 2024-09-21 15:59 | XMS_ITS | Encounter Summary ---
Author Organization [facility] Address [address] [place] [address] Phone Care Team Providers Care Shoe Sprayer Name Role Phone Unavailable Primary Care Provider Unavailabl e Encounter Details Date Type Department Care Team (Late st Contact Info) Description 05/04/2006 Legacy Encounter - Labs HISTORICAL CONVERSION [place] [address], [place] [address] ProviderYoav MD [facility] AnyRobert [place] [phone] Social History Tobacco Use Types Packs/Day Years [...] LAB RESULT SCAN PROCEDURE 05/04/2006 12:00 AM OIL BAY TECHNICIAN documented in this encounter Results * DPS CONVERSION - LAB RESULT SCAN PROCEDURE (05/04/2006 12:00 AM OIL BAY TECHNICIAN) Narrative 05/04/2006 12:00 AM OIL BAY TECHNICIAN Ordered by an unspecified provider. us Historical Provider LAB BLOOD ORDERABLES Day l Result documented in this encounter Visit Diagnoses Not on filedocumented in this encounter
--- OUTSIDE RECORDS SUMMARY | 2024-09-21 15:59 | XMS_ITS | Encounter Summary ---
Author Organization [facility] Address [address] [place] [address] Phone Care Team Providers Care Electroplater Name Role Phone Unavailable Primary Care Provider Unavailabl e Encounter Details Date Type Department Care Team (Late st Contact Info) Description 10/05/2008 Legacy Encounter - Labs HISTORICAL CONVERSION [place] [address], [place] [address] ProviderYoav MD [facility] AnyGabriel [place] [phone] Social History Tobacco Use Types Packs/Day Years [...]
--- OUTSIDE RECORDS SUMMARY | 2024-09-21 15:59 | XMS_ITS | Encounter Summary ---
Author Organization [facility] Address [address] [place] [address] Phone Care Team Providers Care Director Clinical Applications Name Role Phone Unavailable Primary Care Provider Unavailabl e Encounter Details Date Type Department Care Team (Late st Contact Info) Description 07/28/2006 Legacy Encounter - Labs HISTORICAL CONVERSION [place] [phone], [place] [address] ProviderYoav MD [address] [place] [address] Social History Tobacco Use Types Packs/Day Years [...] LAB RESULT SCAN PROCEDURE 07/28/2006 12:00 AM AUTO DRIVER DPS CONVERSION - LAB RESULT SCAN PROCEDURE 07/28/2006 12:00 AM AUTO DRIVER documented in this encounter Results * DPS CONVERSION - LAB RESULT SCAN PROCEDURE (07/28/2006 12:00 AM AUTO DRIVER) Narrative 07/28/2006 12:00 AM AUTO DRIVER Ordered by an unspecified provider. Historical Provider LAB BLOOD ORDERABLES Day l Result * DPS CONVERSION - LAB RESULT SCAN PROCEDURE (07/28/2006 12:00 AM AUTO DRIVER) Narrative 07/28/2006 12:00 AM AUTO DRIVER Ordered by an unspecified provider. Historical Provider LAB BLOOD ORDERABLES Day l Result documented in this encounter Visit Diagnoses Not on filedocumented in this encounter
--- OUTSIDE RECORDS SUMMARY | 2024-09-21 15:59 | XMS_ITS | Encounter Summary ---
Author Organization [facility] Address [address] [place] [address] Phone Care Team Providers Care Artist Color Separation Name Role Phone Unavailable Primary Care Provider Unavailabl e Encounter Details Date Type Department Care Team (Late st Contact Info) Description 11/20/2005 Legacy Encounter - Labs HISTORICAL CONVERSION [place] [address], [place] [address] ProviderYoav MD [facility] [place] [phone] Social History Tobacco Use Types Packs/Day Years [...]
--- OUTSIDE RECORDS SUMMARY | 2024-09-21 15:59 | XMS_ITS | Encounter Summary ---
Author Organization [facility]imissy Address [address] [place] [address] Phone Care Team Providers Care Rail Splitter Name Role Phone Unavailable Primary Care Provider Unavailabl e Encounter Details Date Type Department Care Team (Late st Contact Info) Description 04/29/2006 Legacy Encounter - Labs HISTORICAL CONVERSION [place] [phone], [place] [address] ProviderYoav MD [facility] [place] [address] Social History Tobacco Use Types Packs/Day Years [...] LAB RESULT SCAN PROCEDURE 04/29/2006 12:00 AM GENERAL MANAGER LAND DEPARTMENT DPS CONVERSION - LAB RESULT SCAN PROCEDURE 04/29/2006 12:00 AM GENERAL MANAGER LAND DEPARTMENT DPS CONVERSION - LAB RESULT SCAN PROCEDURE 04/29/2006 12:00 AM GENERAL MANAGER LAND DEPARTMENT documented in this encounter Results * DPS CONVERSION - LAB RESULT SCAN PROCEDURE (04/29/2006 12:00 AM GENERAL MANAGER LAND DEPARTMENT) Narrative 04/29/2006 12:00 AM GENERAL MANAGER LAND DEPARTMENT Ordered by an unspecified provider. us Historical Provider LAB BLOOD ORDERABLES Day l Result * DPS CONVERSION - LAB RESULT SCAN PROCEDURE (04/29/2006 12:00 AM GENERAL MANAGER LAND DEPARTMENT) Narrative 04/29/2006 12:00 AM GENERAL MANAGER LAND DEPARTMENT Ordered by an unspecified provider. us Historical Provider LAB BLOOD ORDERABLES Day l Result * DPS CONVERSION - LAB RESULT SCAN PROCEDURE (04/29/2006 12:00 AM GENERAL MANAGER LAND DEPARTMENT) Narrative 04/29/2006 12:00 AM GENERAL MANAGER LAND DEPARTMENT Ordered by an unspecified provider. us Historical Provider LAB BLOOD ORDERABLES Day l Result documented in this encounter Visit Diagnoses Not on filedocumented in this encounter
--- OUTSIDE RECORDS SUMMARY | 2024-09-21 15:59 | XMS_ITS | Encounter Summary ---
Author Organization [facility] Address [address] [place] [address] Phone Care Team Providers Care Stave Log Ripsaw Operator Name Role Phone Unavailable Primary Care Provider Unavailabl e Encounter Details Date Type Department Care Team (Late st Contact Info) Description 03/26/2009 Abstract HISTORICAL CONVERSION [place] [id number] [phone] ProviderYoav MD [facility] [place] [phone] Social History Tobacco Use Types Packs/Day Years [...]
--- OUTSIDE RECORDS SUMMARY | 2024-09-21 15:59 | XMS_ITS | Encounter Summary ---
Author Organization [facility] Address [address] [place] [address] Phone Care Team Providers Care Family Mediator Name Role Phone Unavailable Primary Care Provider Unavailabl e Encounter Details Date Type Department Care Team (Late st Contact Info) Description 11/06/2006 Legacy Encounter - Labs HISTORICAL CONVERSION [place] [phone], [place] [address] ProviderYoav MD [facility] [place] [address] Social History Tobacco Use Types Packs/Day Years [...] AM CDT Ordered by an unspecified provider. [facility] Provider LAB BLOOD ORDERABLES Day l Result * DPS CONVERSION - LAB RESULT SCAN PROCEDURE (11/06/2006 12:00 AM CDT) Narrative 11/06/2006 12:00 AM CDT Ordered by an unspecified provider. [facility] Provider LAB BLOOD ORDERABLES Day l Result * DPS CONVERSION - LAB RESULT SCAN PROCEDURE (11/06/2006 12:00 AM CDT) Narrative 11/06/2006 12:00 AM CDT Ordered by an unspecified provider. [facility] Provider LAB BLOOD ORDERABLES Day l Result documented in this encounter Visit Diagnoses Not on filedocumented in this encounter
--- OUTSIDE RECORDS SUMMARY | 2024-09-21 15:59 | XMS_ITS | Encounter Summary ---
Author Organization [facility] Address [address] [place] [address] Phone Care Team Providers Care Coremaking Supervisor Name Role Phone Unavailable Primary Care Provider Unavailabl e Encounter Details Date Type Department Care Team (Late st Contact Info) Description 08/28/2006 Legacy Encounter - Labs HISTORICAL CONVERSION [place] [phone], [place] [address] ProviderYoav MD [facility] [place] [phone] Social History Tobacco Use Types Packs/Day Years [...]
== END 2024-09-21 13:51 | disposition home or self-care (01) ==
LOC: HO.LNP 13:50
PROVIDERS: PCP Nurse Practitioner Family; Visit Provider Student in an Organized Health Care Education/Training Program
DX: Z00.00 Encounter for general adult medical examination without abnormal findings (principal); L40.50 Arthropathic psoriasis, unspecified; M54.50 Low back pain, unspecified; G89.29 Other chronic pain; R94.31 Abnormal electrocardiogram [ECG] [EKG]; M35.01 Sjogren syndrome with keratoconjunctivitis; Z79.899 Other long term (current) drug therapy; Z79.620 Long term (current) use of immunosuppressive biologic
CPT/HCPCS: 81003; 99212

== ENCOUNTER 2024-09-21 13:50 | Outpatient (AMB) | payer MEDICARE, MEDICAID, SELFPAY ==
[2024-09-21 13:57] VITALS: BP 124/72; PULSE 66; O2SAT 97; BMI 31.5
--- NOTE | 2024-09-21 13:57 | A.OFFVIS_ITS ---
Vital Signs 09/21/24 13:57 Height 5 ft 5 in Weight 189 lb 9.561 oz BMI 31.5 BP 124/72 Blood Pressure Location Lt brachial Position Sitting Pulse 66 Pulse Source Pulse Oximeter Pulse Oximetry (%) 97 Oxygen Delivery Method Room Air Intake Visit Reasons: PSA/pending for credentialing/lm Intake Note: Patient is here for follow up on PSA, and blood work. She was last seen in the office on 06/23/[address] Adams. Patient stopped taking the Otezla due to upset stomach. Allergies sulfa Allergy (Mild, Uncoded 09/21/24 14:03) Hives Medication List - Last Reconciled 09/21/24 by Sweetie Adams MD biotin 10 mg PO DAILY 30 days buprenorphine-naloxone 2-0.5 mg (Suboxone) 1 film sublingual TID cholecalciferol (vitamin D3) (Vitamin D3) 125 mcg PO DAILY 90 days cyanocobalamin (vitamin B-12) (Vitamin B-12) 2,500 mcg sublingual DAILY 30 days diclofenac epolamine 1.3% (Flector) 1 patch transdermal .qd 30 days duloxetine (Cymbalta) 60 mg PO DAILY 30 days ferrous sulfate 325 mg PO DAILY 30 days gabapentin 300 mg PO TID 30 days hydroxychloroquine 200 mg PO BID levothyroxine 150 mcg PO DAILY 30 days lidocaine 5% 2 patches topical DAILY meloxicam 7.5 mg PO BID metoprolol succinate ER 25 mg PO BID 30 days omeprazole 20 mg PO DAILY 90 days tizanidine 2 mg PO Q8H PRN 30 days trazodone 150 mg PO BEDTIME PRN HPI Comments Details: Patient is a 58-year-old female with depression/anxiety, 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 At that time she was on Cosentyx infusions hydroxychloroquine and leflunomide. Despite this combination she still continued to have persistent joint pain as well as psoriatic patches and so Otezla was added and leflunomide stopped Patient was not able to tolerate the Otezla having significant diarrhea. Today she actually reports doing overall well. No further psoriatic patches Still has intermittent joint pain but this has improved Rheumatologic History: Initial history: This is a 56-year-old female with a past medical history of psoriatic spondylitis, Sjogren's who presents as a new patient. She recently moved from [facility]. 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 Afterwards patient had multiple symptoms including dry eyes and dry mouth, Raynaud's and low back pain as well as peripheral arthritis. She was on multiple DMARDs for her arthritis including * Prednisone for about 10 years * Could not tolerate methotrexate * Humira was not effective * Hydroxychloroquine throughout * Remicade at 5 mgs/kg every 8 weeks started around 2015. Had stopped due her move and when it was restarted it was secondary non responsive. DC 12/14 ineffective. +ve infliximab antibody * Enbrel 01/14 DC 02/14 due to rash * Taltz 08/2023 * Unclear when Arava was started. But she only takes 10 mg twice a week, higher doses cause diarrhea She was started on Remicade 3-4 years ago 5 mg/kg every 8 weeks with significant improvement in her overall symptoms especially her back pain. Patient's last dose of Remicade was in November of 2021. Patient states that feels significant worsening of her overall joint pain especially her back now that she has not received Remicade for 8 months. Continues to have dry eyes and dry mouth. Uses Restasis regularly. Uses Salagen twice daily for dry mouth without significant relief. Continues to use Biotene mouthwash and Biotene toothpaste. Osteoporosis: Bilateral ankle fracture while walking down the stairs. Around 10 years of chronic corticosteroid exposure DEXA 12/2018? L-spine T-score -1.2? Mean proximal fever -0.5? Mean femur neck -0.9 DEXA 06/2022 L-spine T-score -0.4 Left femur neck-0.5 Left femur total -0.5 Took alendronate for about 6 months stopped due to GI intolerance Needle phobic could not use Tymlos Took 9 out of 12 doses of Evenity, last dose 11/2021 Current Rheumatology Medication(s): Cosentyx 200mg IV infusion monthly Hydroxychloroquine 200mg bid [facility] Medical History (Updated 09/21/24 @ 15:45 by Sweetie Adams MD) Osteoporosis intermediate designer current use of immunosuppressive drug Chronic low back pain Discoid lupus Thyroid disease Raynaud disease Neuropathy Arthritis Anemia Philipp thyroiditis, fibrous variant Polyarticular arthritis Hypertension Osteopenia of both ankles Surgical History History of ankle surgery History of tonsillectomy History of knee replacement Family History Paternal Grandfather Rheumatoid arthritis Lupus Father ALS (amyotrophic lateral sclerosis) Mother Macular degeneration Social History Household Members: None Housing: Apartment Alcohol intake: never Patient Tobacco Use Status: Never used Tobacco e-Cigarette/Vaping Use: Never Used Second Hand Smoke Exposure: No service: No Current occupational status: disabled Cognitive needs: No Hearing needs: No Vision needs: No Review of Systems Const Details: Review of Systems Constitutional: Denies fever, chills, weight loss ENT: Denies vision changes, eye pain or eye redness, dental caries, dry mouth GI: Denies nausea, vomiting, diarrhea, abdominal pain, change in BM Pulm: Denies SOB, XAVIER, hemoptysis, wheezing Cards: Denies chest pain, palpitations Skin: Denies Raynaud's, nail changes, photosensitivity, PATIENT SUPPORT ASSOCIATE: Denies headaches, weakness, paresthesias, recurrent falls MSK: as per HPI All other systems reviewed and are unremarkable except noted above Physical Exam Vital Signs: BMI result Body Mass Index 31.5 Vital signs reviewed Physical Examination CONSTITUITIONAL Patient alert and cooperative. Well appearing and in no apparent painful distress HEENT Conjunctiva and sclera clear. ?Pupils equal round and reactive to light. ?No lymphadenopathy. ? CHEST/RESPIRATORY SYSTEM Normal respiratory effort and able to speak in complete sentences. ?Clear to auscultation bilaterally. ?No crackles, rales, rhonchi, wheezes heard. CARDIAC SYSTEM Regular rate and rhythm. ?S1 and S2 heard no murmurs. ?Radial pulses intact irineo aterally MSK Hands: ?Good bilingual teacher aide strength bilaterally. No deformities noted. No TTP of the MCPs or PIPs Wrists: ?Full range of motion at the wrists without pain. ?No tenderness to palpation or synovitis noted to the wrists. Elbows: Full range of motion without pain. No tenderness, weakness, swelling, increased warmth or erythema. Shoulders: Full range of motion without pain. No tenderness, weakness, swelling, increased warmth or erythema. Knees: ?Full range of motion. ?No tenderness, swelling, increased warmth or erythema.?Crepitations Ankles: Full range of motion. ?No tenderness, swelling, increased warmth or erythema.? Feet: ?Negative squeeze test. ?No tenderness to palpation or swelling of the MTPs. Tender points:?No tenderness to palpation of the bilateral trapezius, supraspinatus, greater trochanters, anterior costochondral junctions, bilateral gluteal areas, bilateral suboccipital muscle insertions SKIN Skin intact without rashes. Results Reviewed Results Reviewed: Laboratory Tests 08/19/24 09/19/24 14:45 15:30 WBC 4.3 L RBC 4.15 L Hgb 11.3 L Hct 36.2 L Plt Count 239 ESR 7 Sodium 143 Potassium 4.5 Chloride 106 Carbon Dioxide 30 H BUN 16 Creatinine 0.76 AST 26 ALT 19 Alkaline Phosphatase 49 C-Reactive Protein 0.42 25-OH Vitamin D Total 31.2 27.4 L Laboratory Tests 01/27/23 09/19/24 12:38 15:30 SS-A/Ro Antibody >8.0 POS A SS-B/La Antibody <1.0 NEG Sm (Rangel) Antibody <1.0 NEG SM/COMPETITIVE INTELLIGENCE MANAGER IgG Antibody <1.0 NEG Double Strand DNA Ab <1 Complement C3 115 Complement C4 23 Hepatitis A IgM Ab Nonreactive Hep Bs Antigen Negative Hep Bs Antibody NONREACTIVE Hep B Core Total Ab Nonreactive Hepatitis C Ab (EIA) Nonreactive TB Test (T-Spot) Com Pending DEXA 06/2022 FINDINGS: AP SPINE L1-L4: BMD 1.129 g/cm2, Z-score -0.1, T-score -0.4, normal. LEFT FEMUR, NECK: BMD 0.963 g/cm2, Z-score 0.1, T-score -0.5, normal. LEFT FEMUR, TOTAL: BMD 0.948 g/cm2, Z-score -0.2, T-score -0.5, normal. Assessment & Plan Assessment & Plan (1) Psoriatic arthritis: Comment: Per patient onset around 2003 Prednisone for about 10 years Could not tolerate methotrexate Humira was not effective Hydroxychloroquine throughout Remicade at 5 mgs/kg every 8 weeks started around 2015. DC 12/14 ineffective. +ve infliximab antibody Enbrel 01/14 DC 02/14 due to rash Taltz 08/2023 Unclear when Arava was started. But she only takes 10 mg twice a week, higher doses cause diarrhea Code(s): L40.50 - Arthropathic psoriasis, unspecified Category: Medical Plan: #PsO complicated by PsA Patient is a 58-year-old female with psoriasis complicated by psoriatic arthritis on Cosentyx infusions, hydroxychloroquine and leflunomide. Currently she is in remission of her disease Plan - Continue cosentyx infusion 200mg IV monthly - Continue plaquenil 200mg bid - Due DEXA scan. Last DEXA normal 2022 - RTC 4 months - Labs before visit: CBC, CMP, ESR, CRP (2) Sjogren syndrome with keratoconjunctivitis: Comment: +++ SSA with sicca symptoms Code(s): M35.01 - Sjogren syndrome with keratoconjunctivitis Category: Medical Plan: #Sjogren's Syndrome Continues to complain of dry eyes Continue plaquenil and conservative measures such as topical eye drops No dry mouth, acutally complaining of increased salivation. Recommended aquafor at the mouth to help with saliva irritation of the skin Plan - Check C3, C4, SPEP, RF, UA, UPC (3) Long-term use of hydroxychloroquine: Comment: Eye exam 11/2023 okay, 05/2024 okay Code(s): Z79.899 - Other penitentiary (current) drug therapy Category: Medical Plan: #Long-term Use of Hydroxychloroquine Discussed with patient the risks and benefits of hydroxychloroquine in managing the rheumatic condition Benefits include: - Reduced pain, reduce mortality, maintenance of remission and reduction of flares Risks include: - GI upset, skin hyperpigmentation, retinal toxicity (especially after more than 5 years of use), myopathy Advised yearly ophthalmology visits Last ophthalmology visit: 05/2024 (4) Long-term current use of secukinumab: Code(s): Z79.620 - intermediate designer (current) use of immunosuppressive biologic Plan: #intermediate designer treatment with IL 17 inhibitors (Cosentyx) Risks and benefits of IL 17 inhibitors discussed with the patient. ?Risks include infections, injection site reactions, activation of inflammatory bowel disease. Benefits include improved disease activity. Discussed with patient that if she is feeling sick or having flu-like symptoms she is to hold the medication that week and resolved the following week. Plan I spent 30 minutes reviewing the record and labs, taking a history, examining the patient, discussing the treatment plan, ordering diagnostic work up and documenting in the medical record Orders: Orders Complete Blood Count Auto Diff 4 Months L40.50 - Arthropathic psoriasis, unspecified Comprehensive Met. Panel 4 Months L40.50 - Arthropathic psoriasis, unspecified Erythrocyte Sedimentation Rate 4 Months L40.50 - Arthropathic psoriasis, unspecified Complement C3 4 Months M35. - Sjogren syndrome with keratoconjunctivitis Protein Creatinine Ratio, Ur 4 Months M35. - Sjogren syndrome with keratoconjunctivitis XR DEXA axial skeleton Today M81.0 - Age-related osteoporosis without current pathological fracture C Reactive Protein 4 Months L40.50 - Arthropathic psoriasis, unspecified Hepatitis A,B,C Profile 4 Months L40.50 - Arthropathic psoriasis, unspecified Complement C4 4 Months M35. - Sjogren syndrome with keratoconjunctivitis UA w Microscopic 4 Months M35. - Sjogren syndrome with keratoconjunctivitis Rheumatoid Factor 4 Months M35. - Sjogren syndrome with keratoconjunctivitis Vitamin D 25-OH Total 4 Months E55.9 - Vitamin D deficiency, unspecified Medications: Refilled cholecalciferol (vitamin D3) (Vitamin D3) 125 mcg PO DAILY 90 days 90 tabs 1RF hydroxychloroquine 200 mg PO BID 180 tabs 1RF Discontinued Taltz Autoinjector (ixekizumab) Discontinued Reason: Doctor's Order 80 mg subcut Q4W 4 mL 2RF NS L40.50 - Arthropathic psoriasis, unspecified Coding Level of Care Code Est Pt Level 4 (11257) Complex EM visit Add On G2211 Diagnoses Psoriatic arthritis L40.50 Sjogren syndrome with keratoconjunctivitis M35.01 Long-term use of hydroxychloroquine Z79.899 Long-term current use of secukinumab Z79.620
--- OUTSIDE RECORDS SUMMARY | 2024-09-21 15:05 | XMS_ITS | Encounter Summary ---
Author Organization [facility] Address [address] [place] [address] Phone Care Team Providers Care Apprenticeship Consultant Name Role Phone Unavailable Primary Care Provider Unavailabl e Encounter Details Date Type Department Care Team (Late st Contact Info) Description 06/06/2013 Abstract HISTORICAL CONVERSION [place] [phone] ProviderYoav MD [facility] [place] [phone] Social History Tobacco Use Types Packs/Day Years [...]
--- OUTSIDE RECORDS SUMMARY | 2024-09-21 15:05 | XMS_ITS | Encounter Summary ---
Author Organization [facility] Address [address] [place] [address] Phone Care Team Providers Care Automated Cutting Machine Operator Name Role Phone Unavailable Primary Care Provider Unavailabl e Encounter Details Date Type Department Care Team (Late st Contact Info) Description 08/07/2012 Legacy Encounter - Labs HISTORICAL CONVERSION [place] [phone], [place] [address] ProviderYoav MD [facility] [place] [phone] Social History Tobacco Use Types Packs/Day Years [...]
--- OUTSIDE RECORDS SUMMARY | 2024-09-21 15:05 | XMS_ITS | Encounter Summary ---
Author Organization [facility] Address [address] [place] [address] Phone Care Team Providers Care Roll Dough Divider Name Role Phone Unavailable Primary Care Provider Unavailabl e Encounter Details Date Type Department Care Team (Late st Contact Info) Description 06/29/2012 Legacy Encounter - Labs HISTORICAL CONVERSION [place] [phone], [place] [address] ProviderYoav MD [facility] [place] [phone] Social History Tobacco Use Types Packs/Day Years [...] LAB RESULT SCAN PROCEDURE 06/29/2012 12:00 AM BARBER OR BEAUTY SHOP MANAGER documented in this encounter Results * DPS CONVERSION - LAB RESULT SCAN PROCEDURE (06/29/2012 12:00 AM BARBER OR BEAUTY SHOP MANAGER) Narrative 06/29/2012 12:00 AM BARBER OR BEAUTY SHOP MANAGER Ordered by an unspecified provider. us Historical Provider LAB BLOOD ORDERABLES Day l Result documented in this encounter Visit Diagnoses Not on filedocumented in this encounter
--- OUTSIDE RECORDS SUMMARY | 2024-09-21 15:05 | XMS_ITS | Encounter Summary ---
Author Organization [facility] Address [address] [place] [address] Phone Care Team Providers Care Instrumentation Chemist Name Role Phone Unavailable Primary Care Provider Unavailabl e Encounter Details Date Type Department Care Team (Late st Contact Info) Description 09/01/2012 Legacy Encounter - Labs HISTORICAL CONVERSION [place] [phone], [place] [address] ProviderYoav MD [facility] [place] [address] Social History Tobacco Use Types Packs/Day Years [...]
--- OUTSIDE RECORDS SUMMARY | 2024-09-21 15:05 | XMS_ITS | Encounter Summary ---
Author Organization [facility] Address [address] [place] [address] Phone Care Team Providers Care Cigar Packing Examiner Name Role Phone Unavailable Primary Care Provider Unavailabl e Encounter Details Date Type Department Care Team (Late st Contact Info) Description 09/13/2012 Legacy Encounter - Labs HISTORICAL CONVERSION [place] [phone], [place] [address] ProviderYoav MD [facility] [place] [address] Social History Tobacco Use Types Packs/Day Years [...]
--- OUTSIDE RECORDS SUMMARY | 2024-09-21 15:06 | XMS_ITS | Clinical Summary ---
Author Organization [facility] Address [address] [place] [address] Phone Care Team Providers Care Sales Enablement Manager Name Role Phone Unavailable Primary Care [...] Active -Hx Entry 5 Active HYDROcodone-ac etaminophen (Landrum) 10-325 MG per tablet Landrum( 10-325MG Oral 1 as needed ) Active [...] Comments Blood Pressure 122/74 03/27/2015 12:01 AM SALES REPRESENTATIVE MALT LIQUORS Pulse 80 03/27/2015 12:01 AM SALES REPRESENTATIVE MALT LIQUORS Temperature - - Respiratory Rate - - Oxygen Saturation - - Inhaled Oxygen Concentration - - Weight 68.9 kg (152 lb) 03/27/2015 12:01 AM SALES REPRESENTATIVE MALT LIQUORS Height 162.6 cm (5' 4 ) 03/27/2015 12:01 AM SALES REPRESENTATIVE MALT LIQUORS Body Mass Index 26.09 03/27/2015 12:01 AM SALES REPRESENTATIVE MALT LIQUORS Plan of Treatment Not on file Insurance PM INTERFACED INSURANCE
--- OUTSIDE RECORDS SUMMARY | 2024-09-21 15:06 | XMS_ITS | Encounter Summary ---
Author Organization [facility] Address [address] [place] [address] Phone Care Team Providers Care Automobile Brakes Bonder Name Role Phone Unavailable Primary Care Provider Unavailabl e Encounter Details Date Type Department Care Team (Late st Contact Info) Description 03/13/2015 Legacy Encounter - Labs HISTORICAL CONVERSION [place] [phone], [place] [address] ProviderYoav MD [facility] [place] [phone] Social History Tobacco Use Types Packs/Day Years [...]
--- OUTSIDE RECORDS SUMMARY | 2024-09-21 15:06 | XMS_ITS | Encounter Summary ---
Author Organization [facility] Address [address] [place] [address] Phone Care Team Providers Care Concession Stand Attendant Name Role Phone Unavailable Primary Care Provider Unavailabl e Encounter Details Date Type Department Care Team (Late st Contact Info) Description 11/06/2006 Legacy Encounter - Labs HISTORICAL CONVERSION [place] [phone], [place] [address] Provider[place] [address] Social History Tobacco Use Types Packs/Day Years [...] AM CDT Ordered by an unspecified provider. [facility] Provider LAB BLOOD ORDERABLES Day l Result * DPS CONVERSION - LAB RESULT SCAN PROCEDURE (11/06/2006 12:00 AM CDT) Narrative 11/06/2006 12:00 AM CDT Ordered by an unspecified provider. [facility] Provider LAB BLOOD ORDERABLES Day l Result * DPS CONVERSION - LAB RESULT SCAN PROCEDURE (11/06/2006 12:00 AM CDT) Narrative 11/06/2006 12:00 AM CDT Ordered by an unspecified provider. [facility] Provider LAB BLOOD ORDERABLES Day l Result documented in this encounter Visit Diagnoses Not on filedocumented in this encounter
--- OUTSIDE RECORDS SUMMARY | 2024-09-21 15:06 | XMS_ITS | Encounter Summary ---
Author Organization [facility] Address [address] [place] [address] Phone Care Team Providers Care Accounting Machine Operator Name Role Phone Unavailable Primary Care Provider Unavailabl e Encounter Details Date Type Department Care Team (Late st Contact Info) Description 02/13/2014 Legacy Encounter - Labs HISTORICAL CONVERSION [place] [phone], [place] [address] ProviderYoav MD [facility] [place] [phone] Social History Tobacco Use Types Packs/Day Years [...]
--- OUTSIDE RECORDS SUMMARY | 2024-09-21 15:06 | XMS_ITS | Encounter Summary ---
Author Organization [facility] Address [address] [place] [address] Phone Care Team Providers Care Histology Teacher Name Role Phone Unavailable Primary Care Provider Unavailabl e Encounter Details Date Type Department Care Team (Late st Contact Info) Description 06/11/2011 Legacy Encounter - Labs HISTORICAL CONVERSION [place] [phone], [place] [address] ProviderYoav MD [facility] [place] [phone] Social History Tobacco Use Types Packs/Day Years [...] LAB RESULT SCAN PROCEDURE 06/11/2011 12:00 AM CLINICAL PROVIDER TRAINER documented in this encounter Results * DPS CONVERSION - LAB RESULT SCAN PROCEDURE (06/11/2011 12:00 AM CLINICAL PROVIDER TRAINER) Narrative 06/11/2011 12:00 AM CLINICAL PROVIDER TRAINER Ordered by an unspecified provider. us Historical Provider LAB BLOOD ORDERABLES Day l Result documented in this encounter Visit Diagnoses Not on filedocumented in this encounter
--- OUTSIDE RECORDS SUMMARY | 2024-09-21 15:06 | XMS_ITS | Encounter Summary ---
Author Organization [facility] Address [address] [place] [phone] Phone Care Team Providers Care Director Talent Name Role Phone Unavailable Primary Care Provider Unavailabl e Encounter Details Date Type Department Care Team (Late st Contact Info) Description 07/06/2009 Abstract HISTORICAL CONVERSION [place] [phone] ProviderYoav MD [facility] [place] [phone] Social History Tobacco Use Types Packs/Day Years [...]
--- OUTSIDE RECORDS SUMMARY | 2024-09-21 15:06 | XMS_ITS | Encounter Summary ---
Author Organization [facility] Address [address] [place] [address] Phone Care Team Providers Care Crucible Packer Name Role Phone Unavailable Primary Care Provider Unavailabl e Encounter Details Date Type Department Care Team (Late st Contact Info) Description 07/28/2006 Legacy Encounter - Labs HISTORICAL CONVERSION [place] [phone], [place] [address] ProviderYoav MD [address] [place] [address] Social History Tobacco Use Types Packs/Day Years [...] LAB RESULT SCAN PROCEDURE 07/28/2006 12:00 AM LIBRARY ATTENDANT DPS CONVERSION - LAB RESULT SCAN PROCEDURE 07/28/2006 12:00 AM LIBRARY ATTENDANT documented in this encounter Results * DPS CONVERSION - LAB RESULT SCAN PROCEDURE (07/28/2006 12:00 AM LIBRARY ATTENDANT) Narrative 07/28/2006 12:00 AM LIBRARY ATTENDANT Ordered by an unspecified provider. Historical Provider LAB BLOOD ORDERABLES Day l Result * DPS CONVERSION - LAB RESULT SCAN PROCEDURE (07/28/2006 12:00 AM LIBRARY ATTENDANT) Narrative 07/28/2006 12:00 AM LIBRARY ATTENDANT Ordered by an unspecified provider. Historical Provider LAB BLOOD ORDERABLES Day l Result documented in this encounter Visit Diagnoses Not on filedocumented in this encounter
--- OUTSIDE RECORDS SUMMARY | 2024-09-21 15:06 | XMS_ITS | Encounter Summary ---
Author Organization [facility] Address [address] [place] [address] Phone Care Team Providers Care Shrimping Boat Captain Name Role Phone Unavailable Primary Care Provider Unavailabl e Encounter Details Date Type Department Care Team (Late st Contact Info) Description 03/26/2009 Abstract HISTORICAL CONVERSION [place] [phone] [phone] ProviderYoav MD [facility] [place] [phone] Social History Tobacco Use Types Packs/Day Years [...]
--- OUTSIDE RECORDS SUMMARY | 2024-09-21 15:06 | XMS_ITS | Encounter Summary ---
Author Organization [facility] Address [address] [place] [phone] Phone Care Team Providers Care Overnight Associate Name Role Phone Unavailable Primary Care Provider Unavailabl e Encounter Details Date Type Department Care Team (Late st Contact Info) Description 01/20/2013 Legacy Encounter - Labs HISTORICAL CONVERSION [place] [phone], [place] [address] ProviderYoav MD [facility] [place] [phone] Social History Tobacco Use Types Packs/Day Years [...]
--- OUTSIDE RECORDS SUMMARY | 2024-09-21 15:06 | XMS_ITS | Encounter Summary ---
Author Organization [facility] Address [address] [place] [address] Phone Care Team Providers Care Hotel Yardperson Name Role Phone Unavailable Primary Care Provider Unavailabl e Encounter Details Date Type Department Care Team (Late st Contact Info) Description 07/15/2011 Legacy Encounter - Labs HISTORICAL CONVERSION [place] [phone], [place] [address] ProviderYoav MD [facility] AnyJason [place] [phone] Social History Tobacco Use Types Packs/Day Years [...] LAB RESULT SCAN PROCEDURE 07/15/2011 12:00 AM BROWN STOCK WASHER documented in this encounter Results * DPS CONVERSION - LAB RESULT SCAN PROCEDURE (07/15/2011 12:00 AM BROWN STOCK WASHER) Narrative 07/15/2011 12:00 AM BROWN STOCK WASHER Ordered by an unspecified provider. us Historical Provider LAB BLOOD ORDERABLES Day l Result documented in this encounter Visit Diagnoses Not on filedocumented in this encounter
--- OUTSIDE RECORDS SUMMARY | 2024-09-21 15:06 | XMS_ITS | Encounter Summary ---
Author Organization [facility] Address [address] [place] [address] Phone Care Team Providers Care Manager Costing Name Role Phone Unavailable Primary Care Provider Unavailabl e Encounter Details Date Type Department Care Team (Late st Contact Info) Description 12/24/2012 Legacy Encounter - Labs HISTORICAL CONVERSION [place] [phone], [place] [address] ProviderYoav MD [facility] AnyT[place] [phone] Social History Tobacco Use Types Packs/Day Years [...]
--- OUTSIDE RECORDS SUMMARY | 2024-09-21 15:06 | XMS_ITS | Encounter Summary ---
Author Organization [facility] Address [address] [place] [address] Phone Care Team Providers Care Applications Support Analyst Name Role Phone Unavailable Primary Care Provider Unavailabl e Encounter Details Date Type Department Care Team (Late st Contact Info) Description 03/01/2012 Legacy Encounter - Labs HISTORICAL CONVERSION [place] [phone], [place] [address] ProviderYoav MD [facility] AnyCassie [place] [phone] Social History Tobacco Use Types Packs/Day Years [...]
--- OUTSIDE RECORDS SUMMARY | 2024-09-21 15:06 | XMS_ITS | Encounter Summary ---
Author Organization [facility] Address [address] [place] [address] Phone Care Team Providers Care Clinical Research Assistant Name Role Phone Unavailable Primary Care Provider Unavailabl e Encounter Details Date Type Department Care Team (Late st Contact Info) Description 10/28/2005 Legacy Encounter - Labs HISTORICAL CONVERSION [place] [phone], [place] [address] ProviderYo[place] [address] Social History Tobacco Use Types Packs/Day Years [...]
--- OUTSIDE RECORDS SUMMARY | 2024-09-21 15:06 | XMS_ITS | Encounter Summary ---
Author Organization [facility] Address [address] [place] [address] Phone Care Team Providers Care Junior Java Developer Name Role Phone Unavailable Primary Care Provider Unavailabl e Encounter Details Date Type Department Care Team (Late st Contact Info) Description 03/27/2015 Clinical Support HISTORICAL [place] [id number] [address] ProviderYoav MD [facility] AnyBecky [place] [phone] Social History Tobacco Use Types Packs/Day Years [...]
--- OUTSIDE RECORDS SUMMARY | 2024-09-21 15:06 | XMS_ITS | Encounter Summary ---
Author Organization [facility] Address [address] [place] [address] Phone Care Team Providers Care Rangeland Management Specialist Name Role Phone Unavailable Primary Care Provider Unavailabl e Encounter Details Date Type Department Care Team (Late st Contact Info) Description 03/28/2015 Abstract HISTORICAL CONVERSION [place] [phone] ProviderYoav MD [facility] AnyEmily [place] [phone] Social History Tobacco Use Types Packs/Day Years [...]
--- OUTSIDE RECORDS SUMMARY | 2024-09-21 15:06 | XMS_ITS | Encounter Summary ---
Author Organization [facility] Address [address] [place] [address] Phone Care Team Providers Care Dealer Compliance Representative Name Role Phone Unavailable Primary Care Provider Unavailabl e Encounter Details Date Type Department Care Team (Late st Contact Info) Description 11/19/2009 Legacy Encounter - Labs HISTORICAL CONVERSION [place] [phone], [place] [address] ProviderYoav MD [facility] AnyChristopher [place] [phone] Social History Tobacco Use Types Packs/Day Years [...]
--- OUTSIDE RECORDS SUMMARY | 2024-09-21 15:06 | XMS_ITS | Encounter Summary ---
Author Organization [facility] Address [address] [place] [address] Phone Care Team Providers Care Central Supply Worker Name Role Phone Unavailable Primary Care Provider Unavailabl e Encounter Details Date Type Department Care Team (Late st Contact Info) Description 11/01/2013 Abstract HISTORICAL CONVERSION Gabrielle [place] [phone] ProviderYoav MD [facility] AnyKaren [place] [phone] Social History Tobacco Use Types Packs/Day Years [...]
--- OUTSIDE RECORDS SUMMARY | 2024-09-21 15:06 | XMS_ITS | Encounter Summary ---
Author Organization [facility] Address [address] [place] [address] Phone Care Team Providers Care Cake Icer Name Role Phone Unavailable Primary Care Provider Unavailabl e Encounter Details Date Type Department Care Team (Late st Contact Info) Description 06/14/2012 Legacy Encounter - Labs HISTORICAL CONVERSION [place] [phone], [place] [address] ProviderYoav MD [facility] AnyAnthony [place] [phone] Social History Tobacco Use Types Packs/Day Years [...] LAB RESULT SCAN PROCEDURE 06/14/2012 12:00 AM PHOTOGRAPHY MANAGER documented in this encounter Results * DPS CONVERSION - LAB RESULT SCAN PROCEDURE (06/14/2012 12:00 AM PHOTOGRAPHY MANAGER) Narrative 06/14/2012 12:00 AM PHOTOGRAPHY MANAGER Ordered by an unspecified provider. us Historical Provider LAB BLOOD ORDERABLES Day l Result documented in this encounter Visit Diagnoses Not on filedocumented in this encounter
--- OUTSIDE RECORDS SUMMARY | 2024-09-21 15:06 | XMS_ITS | Encounter Summary ---
Author Organization [facility] Address [address] [place] [address] 20062 Phone Care Team Providers Care Visual Manager Name Role Phone Unavailable Primary Care Provider Unavailabl e Encounter Details Date Type Department Care Team (Late st Contact Info) Description 10/05/2008 Legacy Encounter - Labs HISTORICAL CONVERSION [place] [phone], [place] [address] ProviderYoav MD [facility] AnyKristine [place] [phone] Social History Tobacco Use Types Packs/Day Years [...]
--- OUTSIDE RECORDS SUMMARY | 2024-09-21 15:06 | XMS_ITS | Encounter Summary ---
Author Organization [facility] Address [address] [place] [address] Phone Care Team Providers Care Mothers Helper Name Role Phone Unavailable Primary Care Provider Unavailabl e Encounter Details Date Type Department Care Team (Late st Contact Info) Description 10/23/2009 Legacy Encounter - Labs HISTORICAL CONVERSION [place] [phone], [place] [address] ProviderYoav MD [facility] AnyJennifer [place] [phone] Social History Tobacco Use Types Packs/Day Years [...]
--- OUTSIDE RECORDS SUMMARY | 2024-09-21 15:06 | XMS_ITS | Encounter Summary ---
Author Organization [facility] Address [address] [place] [address] Phone Care Team Providers Care Senior Site Manager Name Role Phone Unavailable Primary Care Provider Unavailabl e Encounter Details Date Type Department Care Team (Late st Contact Info) Description 11/20/2005 Legacy Encounter - Labs HISTORICAL CONVERSION [place] [address], [place] [address] ProviderYoav MD [facility] AnyKelly [place] [phone] Social History Tobacco Use Types Packs/Day Years [...]
--- OUTSIDE RECORDS SUMMARY | 2024-09-21 15:06 | XMS_ITS | Encounter Summary ---
Author Organization [facility] Address [address] [place] [address] Phone Care Team Providers Care Batch Unit Treater Name Role Phone Unavailable Primary Care Provider Unavailabl e Encounter Details Date Type Department Care Team (Late st Contact Info) Description 03/09/2014 Legacy Encounter - Labs HISTORICAL CONVERSION [place] [address], [place] [address] ProviderYoav MD [facility] AnyLaura [place] [phone] Social History Tobacco Use Types Packs/Day Years [...]
--- OUTSIDE RECORDS SUMMARY | 2024-09-21 15:06 | XMS_ITS | Encounter Summary ---
Author Organization [facility] Address [address] [place] [address] Phone Care Team Providers Care Log Truck Driver Name Role Phone Unavailable Primary Care Provider Unavailabl e Encounter Details Date Type Department Care Team (Late st Contact Info) Description 01/27/2006 Abstract HISTORICAL CONVERSION Kimberly [place] [phone] ProviderYoav MD [facility] AnyElizabeth [place] [phone] Social History Tobacco Use Types Packs/Day Years [...]
--- OUTSIDE RECORDS SUMMARY | 2024-09-21 15:06 | XMS_ITS | Encounter Summary ---
Author Organization [facility] Address [address] [place] [address] Phone Care Team Providers Care Parts Classifier Name Role Phone Unavailable Primary Care Provider Unavailabl e Encounter Details Date Type Department Care Team (Late st Contact Info) Description 03/23/2014 Legacy Encounter - Labs HISTORICAL CONVERSION [place] [address], [place] [address] ProviderYoav MD [facility] AnyAnthony [place] [phone] Social History Tobacco Use Types Packs/Day Years [...]
--- OUTSIDE RECORDS SUMMARY | 2024-09-21 15:06 | XMS_ITS | Encounter Summary ---
Author Organization [facility]imissy Address [address] [place] [address] Phone Care Team Providers Care Fiberglass Ski Maker Name Role Phone Unavailable Primary Care Provider Unavailabl e Encounter Details Date Type Department Care Team (Late st Contact Info) Description 03/29/2009 Legacy Encounter - Labs HISTORICAL CONVERSION [place] [phone], [place] [address] ProviderYaov MD [address] [place] [address] Social History Tobacco Use Types Packs/Day Years [...] LAB RESULT SCAN PROCEDURE 03/30/2009 12:00 AM SAMPLE MAKER HAND DPS CONVERSION - LAB RESULT SCAN PROCEDURE 03/29/2009 12:00 AM SAMPLE MAKER HAND documented in this encounter Results * DPS CONVERSION - LAB RESULT SCAN PROCEDURE (03/30/2009 12:00 AM SAMPLE MAKER HAND) Narrative 03/30/2009 12:00 AM SAMPLE MAKER HAND Ordered by an unspecified provider. Historical Provider LAB BLOOD ORDERABLES Day l Result * DPS CONVERSION - LAB RESULT SCAN PROCEDURE (03/29/2009 12:00 AM SAMPLE MAKER HAND) Narrative 03/29/2009 12:00 AM SAMPLE MAKER HAND Ordered by an unspecified provider. Historical Provider LAB BLOOD ORDERABLES Day l Result documented in this encounter Visit Diagnoses Not on filedocumented in this encounter
--- OUTSIDE RECORDS SUMMARY | 2024-09-21 15:06 | XMS_ITS | Encounter Summary ---
Author Organization [facility] Address [address] [place] [address] 9[address] Phone Care Team Providers Care Stitcher Feeder Name Role Phone Unavailable Primary Care Provider Unavailabl e Encounter Details Date Type Department Care Team (Late st Contact Info) Description 09/18/2008 Legacy Encounter - Labs HISTORICAL CONVERSION [place] [phone], [place] [address] ProviderYoav MD [facility] AnyAllison [place] [phone] Social History Tobacco Use Types Packs/Day Years [...]
--- OUTSIDE RECORDS SUMMARY | 2024-09-21 15:06 | XMS_ITS | Encounter Summary ---
Author Organization [facility] Address [address] [place] [address]98 Phone Care Team Providers Care Railcar Mechanic Name Role Phone Unavailable Primary Care Provider Unavailabl e Encounter Details Date Type Department Care Team (Late st Contact Info) Description 06/18/2009 Legacy Encounter - Labs HISTORICAL CONVERSION [place] [phone], [place] [address] ProviderYoav MD [facility] AnyAnthony [place] [phone] Social History Tobacco Use Types Packs/Day Years [...] LAB RESULT SCAN PROCEDURE 06/18/2009 12:00 AM VAMP MARKER documented in this encounter Results * DPS CONVERSION - LAB RESULT SCAN PROCEDURE (06/18/2009 12:00 AM VAMP MARKER) Narrative 06/18/2009 12:00 AM VAMP MARKER Ordered by an unspecified provider. us Historical Provider LAB BLOOD ORDERABLES Day l Result documented in this encounter Visit Diagnoses Not on filedocumented in this encounter
--- OUTSIDE RECORDS SUMMARY | 2024-09-21 15:06 | XMS_ITS | Encounter Summary ---
Author Organization [facility] Address [address] [place] [address] Phone Care Team Providers Care Book Trimmer Name Role Phone Unavailable Primary Care Provider Unavailabl e Encounter Details Date Type Department Care Team (Late st Contact Info) Description 04/29/2006 Legacy Encounter - Labs HISTORICAL CONVERSION [place] [phone], [place] [address] ProviderYoav MD [facility] [place] [address] Social History Tobacco Use Types Packs/Day Years [...] LAB RESULT SCAN PROCEDURE 04/29/2006 12:00 AM TAX COMPLIANCE AGENT DPS CONVERSION - LAB RESULT SCAN PROCEDURE 04/29/2006 12:00 AM TAX COMPLIANCE AGENT DPS CONVERSION - LAB RESULT SCAN PROCEDURE 04/29/2006 12:00 AM TAX COMPLIANCE AGENT documented in this encounter Results * DPS CONVERSION - LAB RESULT SCAN PROCEDURE (04/29/2006 12:00 AM TAX COMPLIANCE AGENT) Narrative 04/29/2006 12:00 AM TAX COMPLIANCE AGENT Ordered by an unspecified provider. us Historical Provider LAB BLOOD ORDERABLES Day l Result * DPS CONVERSION - LAB RESULT SCAN PROCEDURE (04/29/2006 12:00 AM TAX COMPLIANCE AGENT) Narrative 04/29/2006 12:00 AM TAX COMPLIANCE AGENT Ordered by an unspecified provider. us Historical Provider LAB BLOOD ORDERABLES Day l Result * DPS CONVERSION - LAB RESULT SCAN PROCEDURE (04/29/2006 12:00 AM TAX COMPLIANCE AGENT) Narrative 04/29/2006 12:00 AM TAX COMPLIANCE AGENT Ordered by an unspecified provider. us Historical Provider LAB BLOOD ORDERABLES Day l Result documented in this encounter Visit Diagnoses Not on filedocumented in this encounter
--- OUTSIDE RECORDS SUMMARY | 2024-09-21 15:06 | XMS_ITS | Encounter Summary ---
Author Organization [facility] Address [address] [place] [address] Phone Care Team Providers Care Waiter/Waitress Cocktail Lounge Name Role Phone Unavailable Primary Care Provider Unavailabl e Encounter Details Date Type Department Care Team (Late st Contact Info) Description 08/28/2006 Legacy Encounter - Labs HISTORICAL CONVERSION [place] [address], [place] [address] ProviderYoav MD [facility] AnyHenry [place] [phone] Social History Tobacco Use Types Packs/Day Years [...]
--- OUTSIDE RECORDS SUMMARY | 2024-09-21 15:06 | XMS_ITS | Encounter Summary ---
Author Organization [facility] Address [address] [place] [address]756 Phone Care Team Providers Care Gas Processing Plant Operator Name Role Phone Unavailable Primary Care Provider Unavailabl e Encounter Details Date Type Department Care Team (Late st Contact Info) Description 10/29/2013 Legacy Encounter - Labs HISTORICAL CONVERSION [place] [phone], [place] [address] ProviderYoav MD [facility] AnyGabriela [place] [phone] Social History Tobacco Use Types Packs/Day Years [...]
--- OUTSIDE RECORDS SUMMARY | 2024-09-21 15:06 | XMS_ITS | Encounter Summary ---
Author Organization [facility] Address [address] [place] [address]77 Phone Care Team Providers Care Marketing Support Assistant Name Role Phone Unavailable Primary Care Provider Unavailabl e Encounter Details Date Type Department Care Team (Late st Contact Info) Description 01/18/2014 Legacy Encounter - Labs HISTORICAL CONVERSION [place] [phone], [place] [address] ProviderYoav MD [facility] AnyMary [place] [phone] Social History Tobacco Use Types Packs/Day Years [...]
--- OUTSIDE RECORDS SUMMARY | 2024-09-21 15:06 | XMS_ITS | Clinical Summary ---
Author Organization [facility] Address [address] [place] [address] Care Team Providers Care Dye Can Operator Name Role Phone Pcp, No Primary Care [...] , 02/20/2012 Insurance [employer] MGD MEDICARE [facility] Care Teams Dye Can Operator Relationship Specialty Start Date End Date Pcp, No PCP - General General Medicine 05/27/24
--- OUTSIDE RECORDS SUMMARY | 2024-09-21 15:06 | XMS_ITS | Encounter Summary ---
Author Organization [facility] Address [address] [place] [address]45 Phone Care Team Providers Care Coin Machine Assembler Name Role Phone Unavailable Primary Care Provider Unavailabl e Encounter Details Date Type Department Care Team (Late st Contact Info) Description 01/30/2006 Legacy Encounter - Labs HISTORICAL CONVERSION [place] [address], [place] [address] ProviderYoav MD [facility] AnyRobert [place] [phone] Social History Tobacco Use Types Packs/Day Years [...]
--- OUTSIDE RECORDS SUMMARY | 2024-09-21 15:06 | XMS_ITS | Encounter Summary ---
Author Organization [facility] Address [address] [place] [address] Phone Care Team Providers Care Shim Plug Cutter Name Role Phone Unavailable Primary Care Provider Unavailabl e Encounter Details Date Type Department Care Team (Late st Contact Info) Description 08/18/2015 Legacy Encounter - Labs HISTORICAL CONVERSION [place] [address], [place] [address] ProviderYoav MD [facility] AnyKimberly [place] [phone] Social History Tobacco Use Types Packs/Day Years [...]
--- OUTSIDE RECORDS SUMMARY | 2024-09-21 15:06 | XMS_ITS | Encounter Summary ---
Author Organization [facility] Address [address] [place] [address] Phone Care Team Providers Care Building Architectural Designer Name Role Phone Unavailable Primary Care Provider Unavailabl e Encounter Details Date Type Department Care Team (Late st Contact Info) Description 09/12/2010 Legacy Encounter - Labs HISTORICAL CONVERSION [place]qu[place] [address], [place] [address] ProviderYoav MD [facility] [place] [address] Social History Tobacco Use Types Packs/Day Years [...]
--- OUTSIDE RECORDS SUMMARY | 2024-09-21 15:06 | XMS_ITS | Encounter Summary ---
Author Organization [facility] Address [address] [place] [address] Phone Care Team Providers Care Clearance Coordinator Name Role Phone Unavailable Primary Care Provider Unavailabl e Encounter Details Date Type Department Care Team (Late st Contact Info) Description 08/17/2015 Legacy Encounter - Labs HISTORICAL CONVERSION [place] [address], [place] [address] ProviderYoav MD [facility] AnyAdam [place] [phone] Social History Tobacco Use Types Packs/Day Years [...]
--- OUTSIDE RECORDS SUMMARY | 2024-09-21 15:06 | XMS_ITS | Encounter Summary ---
Author Organization [facility] Address [address] [place] [address] Phone Care Team Providers Care Art Class Model Name Role Phone Unavailable Primary Care Provider Unavailabl e Encounter Details Date Type Department Care Team (Late st Contact Info) Description 01/09/2014 Legacy Encounter - Labs HISTORICAL CONVERSION Terri [place] [address], [place] [address] ProviderYoav MD [facility] AnyThomas [place] [phone] Social History Tobacco Use Types Packs/Day Years [...]
--- OUTSIDE RECORDS SUMMARY | 2024-09-21 15:06 | XMS_ITS | Encounter Summary ---
Author Organization [facility] Address [address] [place] [address] Phone Care Team Providers Care Supervisor Electronics Assembly Name Role Phone Unavailable Primary Care Provider Unavailabl e Encounter Details Date Type Department Care Team (Late st Contact Info) Description 05/04/2006 Legacy Encounter - Labs HISTORICAL CONVERSION [place]idget [place] [phone], [place] [address] ProviderYoav MD [facility] AnyMatthew [place] [phone] Social History Tobacco Use Types Packs/Day Years [...] LAB RESULT SCAN PROCEDURE 05/04/2006 12:00 AM SYSTEMS ANALYST documented in this encounter Results * DPS CONVERSION - LAB RESULT SCAN PROCEDURE (05/04/2006 12:00 AM SYSTEMS ANALYST) Narrative 05/04/2006 12:00 AM SYSTEMS ANALYST Ordered by an unspecified provider. us Historical Provider LAB BLOOD ORDERABLES Day l Result documented in this encounter Visit Diagnoses Not on filedocumented in this encounter
--- OUTSIDE RECORDS SUMMARY | 2024-09-21 15:06 | XMS_ITS | Encounter Summary ---
Author Organization [facility] Address [address] [place] [address] Phone Care Team Providers Care Supreme Court Judge Name Role Phone Unavailable Primary Care Provider Unavailabl e Encounter Details Date Type Department Care Team (Late st Contact Info) Description 10/22/2012 Legacy Encounter - Labs HISTORICAL CONVERSION [place]onda [place] [phone], [place] [address] ProviderYoav MD [facility] AnyTimothy [place] [phone] Social History Tobacco Use Types Packs/Day Years [...]
== END 2024-09-21 14:43 | disposition home or self-care (01) ==
LOC: HO.RHE 13:51
PROVIDERS: PCP Nurse Practitioner Family; Visit Provider Student in an Organized Health Care Education/Training Program
DX: L40.50 Arthropathic psoriasis, unspecified (principal); M35.01 Sjogren syndrome with keratoconjunctivitis; Z79.899 Other long term (current) drug therapy; Z79.620 Long term (current) use of immunosuppressive biologic
CPT/HCPCS: 99214; G2211

== ENCOUNTER 2024-10-10 14:10 | Outpatient (AMB) | payer MEDICARE, MEDICAID, SELFPAY ==
--- OUTSIDE RECORDS SUMMARY | 2024-10-10 14:18 | XMS_ITS | Encounter Summary ---
Author Organization [facility] Address [address] [place] [address] Phone Care Team Providers Care Domestic Laundry Worker Name Role Phone Unavailable Primary Care Provider Unavailabl e Encounter Details Date Type Department Care Team (Late st Contact Info) Description 04/29/2006 Legacy Encounter - Labs HISTORICAL CONVERSION [place] [phone], [place] [address] ProviderYoav MD [facility] [place] [address] Social History Tobacco Use Types Packs/Day Years [...] LAB RESULT SCAN PROCEDURE 04/29/2006 12:00 AM SPACE SCIENCES DIRECTOR DPS CONVERSION - LAB RESULT SCAN PROCEDURE 04/29/2006 12:00 AM SPACE SCIENCES DIRECTOR DPS CONVERSION - LAB RESULT SCAN PROCEDURE 04/29/2006 12:00 AM SPACE SCIENCES DIRECTOR documented in this encounter Results * DPS CONVERSION - LAB RESULT SCAN PROCEDURE (04/29/2006 12:00 AM SPACE SCIENCES DIRECTOR) Narrative 04/29/2006 12:00 AM SPACE SCIENCES DIRECTOR Ordered by an unspecified provider. us Historical Provider LAB BLOOD ORDERABLES Day l Result * DPS CONVERSION - LAB RESULT SCAN PROCEDURE (04/29/2006 12:00 AM SPACE SCIENCES DIRECTOR) Narrative 04/29/2006 12:00 AM SPACE SCIENCES DIRECTOR Ordered by an unspecified provider. us Historical Provider LAB BLOOD ORDERABLES Day l Result * DPS CONVERSION - LAB RESULT SCAN PROCEDURE (04/29/2006 12:00 AM SPACE SCIENCES DIRECTOR) Narrative 04/29/2006 12:00 AM SPACE SCIENCES DIRECTOR Ordered by an unspecified provider. us Historical Provider LAB BLOOD ORDERABLES Day l Result documented in this encounter Visit Diagnoses Not on filedocumented in this encounter
--- OUTSIDE RECORDS SUMMARY | 2024-10-10 14:18 | XMS_ITS | Encounter Summary ---
Author Organization [facility] Address [address] [place] [address] Phone Care Team Providers Care Three Knife Trimmer Name Role Phone Unavailable Primary Care Provider Unavailabl e Encounter Details Date Type Department Care Team (Late st Contact Info) Description 08/07/2012 Legacy Encounter - Labs HISTORICAL CONVERSION [place] [phone], [place] [address] ProviderYoav MD [facility] [place] [phone] Social History Tobacco Use Types Packs/Day Years [...]
--- OUTSIDE RECORDS SUMMARY | 2024-10-10 14:18 | XMS_ITS | Encounter Summary ---
Author Organization [facility] Address [address] [place] [address] Phone Care Team Providers Care Tube Coater Name Role Phone Unavailable Primary Care Provider Unavailabl e Encounter Details Date Type Department Care Team (Late st Contact Info) Description 03/28/2015 Abstract HISTORICAL CONVERSION [place] [phone] ProviderYoav MD [facility] [place] [phone] Social History Tobacco Use Types Packs/Day Years [...]
--- OUTSIDE RECORDS SUMMARY | 2024-10-10 14:18 | XMS_ITS | Encounter Summary ---
Author Organization [facility]imissy Address [address] [place] [address] Phone Care Team Providers Care Section Maintainer Name Role Phone Unavailable Primary Care Provider Unavailabl e Encounter Details Date Type Department Care Team (Late st Contact Info) Description 03/29/2009 Legacy Encounter - Labs HISTORICAL CONVERSION [place] [phone], [place] [address] ProviderYoav MD [address] [place] [address] Social History Tobacco Use Types Packs/Day Years [...] LAB RESULT SCAN PROCEDURE 03/30/2009 12:00 AM LEAD TECHNICAL WRITER DPS CONVERSION - LAB RESULT SCAN PROCEDURE 03/29/2009 12:00 AM LEAD TECHNICAL WRITER documented in this encounter Results * DPS CONVERSION - LAB RESULT SCAN PROCEDURE (03/30/2009 12:00 AM LEAD TECHNICAL WRITER) Narrative 03/30/2009 12:00 AM LEAD TECHNICAL WRITER Ordered by an unspecified provider. Historical Provider LAB BLOOD ORDERABLES Day l Result * DPS CONVERSION - LAB RESULT SCAN PROCEDURE (03/29/2009 12:00 AM LEAD TECHNICAL WRITER) Narrative 03/29/2009 12:00 AM LEAD TECHNICAL WRITER Ordered by an unspecified provider. Historical Provider LAB BLOOD ORDERABLES Day l Result documented in this encounter Visit Diagnoses Not on filedocumented in this encounter
--- OUTSIDE RECORDS SUMMARY | 2024-10-10 14:18 | XMS_ITS | Encounter Summary ---
Author Organization [facility] Address [address] [place] [address] Phone Care Team Providers Care Ebay Reseller Name Role Phone Unavailable Primary Care Provider Unavailabl e Encounter Details Date Type Department Care Team (Late st Contact Info) Description 05/04/2006 Legacy Encounter - Labs HISTORICAL CONVERSION [place] [phone], [place] [address] ProviderYoav MD [facility] [place] [phone] Social History Tobacco Use Types Packs/Day Years [...] LAB RESULT SCAN PROCEDURE 05/04/2006 12:00 AM FIELD SUPERINTENDENT documented in this encounter Results * DPS CONVERSION - LAB RESULT SCAN PROCEDURE (05/04/2006 12:00 AM FIELD SUPERINTENDENT) Narrative 05/04/2006 12:00 AM FIELD SUPERINTENDENT Ordered by an unspecified provider. us Historical Provider LAB BLOOD ORDERABLES Day l Result documented in this encounter Visit Diagnoses Not on filedocumented in this encounter
--- OUTSIDE RECORDS SUMMARY | 2024-10-10 14:18 | XMS_ITS | Encounter Summary ---
Author Organization [facility] Address [address] [place] [address] Phone Care Team Providers Care Compliance Testing Analyst Name Role Phone Unavailable Primary Care Provider Unavailabl e Encounter Details Date Type Department Care Team (Late st Contact Info) Description 03/09/2014 Legacy Encounter - Labs HISTORICAL CONVERSION [place] [phone], [place] [address] ProviderYoav MD [facility] [place] [phone] Social History Tobacco Use Types Packs/Day Years [...]
--- OUTSIDE RECORDS SUMMARY | 2024-10-10 14:18 | XMS_ITS | Encounter Summary ---
Author Organization [facility] Address [address] [place] [address] Phone Care Team Providers Care Canal Boat Captain Name Role Phone Unavailable Primary Care Provider Unavailabl e Encounter Details Date Type Department Care Team (Late st Contact Info) Description 01/30/2006 Legacy Encounter - Labs HISTORICAL CONVERSION [place] [address], [place] [address] ProviderYoav MD [facility] AnyRichard [place] [phone] Social History Tobacco Use Types Packs/Day Years [...]
--- OUTSIDE RECORDS SUMMARY | 2024-10-10 14:18 | XMS_ITS | Encounter Summary ---
Author Organization [facility] Address [address] [place] [address] Phone Care Team Providers Care Consumer Product Advisor Name Role Phone Unavailable Primary Care Provider Unavailabl e Encounter Details Date Type Department Care Team (Late st Contact Info) Description 06/14/2012 Legacy Encounter - Labs HISTORICAL CONVERSION [place] [phone], [place] [address] ProviderYoav MD [facility] [place] [phone] Social History Tobacco Use Types Packs/Day Years [...] LAB RESULT SCAN PROCEDURE 06/14/2012 12:00 AM WHEEL ASSEMBLER documented in this encounter Results * DPS CONVERSION - LAB RESULT SCAN PROCEDURE (06/14/2012 12:00 AM WHEEL ASSEMBLER) Narrative 06/14/2012 12:00 AM WHEEL ASSEMBLER Ordered by an unspecified provider. us Historical Provider LAB BLOOD ORDERABLES Day l Result documented in this encounter Visit Diagnoses Not on filedocumented in this encounter
--- OUTSIDE RECORDS SUMMARY | 2024-10-10 14:18 | XMS_ITS | Clinical Summary ---
Author Organization [facility] Address [address] [place] [address] Phone Care Team Providers Care Elementary [employer] Registrar Name Role Phone Unavailable Primary Care Provider [...] Active -Hx Entry 5 Active HYDROcodone-ac etaminophen ([place]) 10-325 MG per tablet [place]( 10-325MG Oral 1 as needed ) Active [...] Comments Blood Pressure 122/74 03/27/2015 12:01 AM ASSISTANT CHIEF NURSING OFFICER Pulse 80 03/27/2015 12:01 AM ASSISTANT CHIEF NURSING OFFICER Temperature - - Respiratory Rate - - Oxygen Saturation - - Inhaled Oxygen Concentration - - Weight 68.9 kg (152 lb) 03/27/2015 12:01 AM ASSISTANT CHIEF NURSING OFFICER Height 162.6 cm (5' 4 ) 03/27/2015 12:01 AM ASSISTANT CHIEF NURSING OFFICER Body Mass Index 26.09 03/27/2015 12:01 AM ASSISTANT CHIEF NURSING OFFICER Plan of Treatment Not on file Insurance PM INTERFACED INSURANCE
--- OUTSIDE RECORDS SUMMARY | 2024-10-10 14:18 | XMS_ITS | Encounter Summary ---
Author Organization [facility] Address [address] [place] [address] Phone Care Team Providers Care Rn Staff Name Role Phone Unavailable Primary Care Provider Unavailabl e Encounter Details Date Type Department Care Team (Late st Contact Info) Description 09/01/2012 Legacy Encounter - Labs HISTORICAL CONVERSION [place] [phone], [place] [address] ProviderYoav MD [facility] [place] [address] Social History Tobacco Use Types Packs/Day Years [...]
--- OUTSIDE RECORDS SUMMARY | 2024-10-10 14:18 | XMS_ITS | Encounter Summary ---
Author Organization [facility] Address [address] [place] [address] Phone Care Team Providers Care Lcpc Name Role Phone Unavailable Primary Care Provider Unavailabl e Encounter Details Date Type Department Care Team (Late st Contact Info) Description 10/23/2009 Legacy Encounter - Labs HISTORICAL CONVERSION [place] [phone], [place] [address] ProviderYoav MD [facility] [place] [phone] Social History Tobacco Use Types Packs/Day Years [...]
--- OUTSIDE RECORDS SUMMARY | 2024-10-10 14:18 | XMS_ITS | Encounter Summary ---
Author Organization [facility] Address [address] [place] [address] Phone Care Team Providers Care Production Tool Engineer Name Role Phone Unavailable Primary Care Provider Unavailabl e Encounter Details Date Type Department Care Team (Late st Contact Info) Description 12/24/2012 Legacy Encounter - Labs HISTORICAL CONVERSION [place] [address], [place] [address] ProviderYoav MD [facility] [place] [phone] Social History Tobacco Use Types Packs/Day Years [...]
--- OUTSIDE RECORDS SUMMARY | 2024-10-10 14:18 | XMS_ITS | Encounter Summary ---
Author Organization [facility] Address [address] [place] [address] Phone Care Team Providers Care Linoleum Layer Apprentice Name Role Phone Unavailable Primary Care Provider Unavailabl e Encounter Details Date Type Department Care Team (Late st Contact Info) Description 09/13/2012 Legacy Encounter - Labs HISTORICAL CONVERSION [place] [phone], [place] [address] ProviderYoav MD [facility] [place] [address] Social History Tobacco Use Types Packs/Day Years [...]
--- OUTSIDE RECORDS SUMMARY | 2024-10-10 14:18 | XMS_ITS | Encounter Summary ---
Author Organization [facility] Address [address] [place] [address] Phone Care Team Providers Care Animal Control Supervisor Name Role Phone Unavailable Primary Care Provider Unavailabl e Encounter Details Date Type Department Care Team (Late st Contact Info) Description 08/28/2006 Legacy Encounter - Labs HISTORICAL CONVERSION [place] [phone], [place] [address] ProviderYoav MD [facility] [place] [phone] Social History Tobacco Use Types Packs/Day Years [...]
--- OUTSIDE RECORDS SUMMARY | 2024-10-10 14:18 | XMS_ITS | Encounter Summary ---
Author Organization [facility] Address [address] [place] [address] Phone Care Team Providers Care Auto Suspension And Steering Mechanic Name Role Phone Unavailable Primary Care Provider Unavailabl e Encounter Details Date Type Department Care Team (Late st Contact Info) Description 03/01/2012 Legacy Encounter - Labs HISTORICAL CONVERSION [place] [phone], [place] [address] ProviderYoav MD [facility] [place] [phone] Social History Tobacco Use Types Packs/Day Years [...]
--- OUTSIDE RECORDS SUMMARY | 2024-10-10 14:18 | XMS_ITS | Encounter Summary ---
Author Organization [facility] Address [address] [place] [address] Phone Care Team Providers Care Elementary Assistant Principal Name Role Phone Unavailable Primary Care Provider Unavailabl e Encounter Details Date Type Department Care Team (Late st Contact Info) Description 07/15/2011 Legacy Encounter - Labs HISTORICAL CONVERSION [place] [phone], [place] [address] ProviderYoav MD [facility] [place] [phone] Social History Tobacco Use Types Packs/Day Years [...] LAB RESULT SCAN PROCEDURE 07/15/2011 12:00 AM MARKETING PLANNER documented in this encounter Results * DPS CONVERSION - LAB RESULT SCAN PROCEDURE (07/15/2011 12:00 AM MARKETING PLANNER) Narrative 07/15/2011 12:00 AM MARKETING PLANNER Ordered by an unspecified provider. us Historical Provider LAB BLOOD ORDERABLES Day l Result documented in this encounter Visit Diagnoses Not on filedocumented in this encounter
--- OUTSIDE RECORDS SUMMARY | 2024-10-10 14:18 | XMS_ITS | Encounter Summary ---
Author Organization [facility] Address [address] [place] [address] Phone Care Team Providers Care Accounts Payable Analyst Name Role Phone Unavailable Primary Care Provider Unavailabl e Encounter Details Date Type Department Care Team (Late st Contact Info) Description 11/01/2013 Abstract HISTORICAL CONVERSION [place] [phone] ProviderYoav MD [facility] [place] [phone] Social History Tobacco Use Types Packs/Day Years [...]
--- OUTSIDE RECORDS SUMMARY | 2024-10-10 14:18 | XMS_ITS | Encounter Summary ---
Author Organization [facility] Address [address] [place] [address] Phone Care Team Providers Care Public Speaking Professor Name Role Phone Unavailable Primary Care Provider Unavailabl e Encounter Details Date Type Department Care Team (Late st Contact Info) Description 01/09/2014 Legacy Encounter - Labs HISTORICAL CONVERSION [place] [phone], [place] [address] ProviderYoav MD [facility] [place] [phone] Social History Tobacco Use Types Packs/Day Years [...]
--- OUTSIDE RECORDS SUMMARY | 2024-10-10 14:18 | XMS_ITS | Encounter Summary ---
Author Organization [facility] Address [address] [place] [address] Phone Care Team Providers Care Ladle Repairer Name Role Phone Unavailable Primary Care Provider Unavailabl e Encounter Details Date Type Department Care Team (Late st Contact Info) Description 06/06/2013 Abstract HISTORICAL CONVERSION [place] [phone] ProviderYoav MD [facility] [place] [phone] Social History Tobacco Use Types Packs/Day Years [...]
--- OUTSIDE RECORDS SUMMARY | 2024-10-10 14:18 | XMS_ITS | Encounter Summary ---
Author Organization [facility] Address [address] [place] [address] Phone Care Team Providers Care Diesel Engine Mechanic Apprentice Name Role Phone Unavailable Primary Care Provider Unavailabl e Encounter Details Date Type Department Care Team (Late st Contact Info) Description 08/17/2015 Legacy Encounter - Labs HISTORICAL CONVERSION [place] [phone], [place] [address] ProviderYoav MD [facility] [place]Greg[place] [phone] Social History Tobacco Use Types Packs/Day Years [...]
--- OUTSIDE RECORDS SUMMARY | 2024-10-10 14:18 | XMS_ITS | Encounter Summary ---
Author Organization [facility] Address [address] [place] [address] Phone Care Team Providers Care Railroad Auditor Name Role Phone Unavailable Primary Care Provider Unavailabl e Encounter Details Date Type Department Care Team (Late st Contact Info) Description 01/27/2006 Abstract HISTORICAL CONVERSION [place] [phone] ProviderYoav MD [facility] [place]Sheila [place] [phone] Social History Tobacco Use Types Packs/Day Years [...]
--- OUTSIDE RECORDS SUMMARY | 2024-10-10 14:18 | XMS_ITS | Encounter Summary ---
Author Organization [facility] Address [address] [place] [address] Phone Care Team Providers Care Child Care Supervisor Name Role Phone Unavailable Primary Care Provider Unavailabl e Encounter Details Date Type Department Care Team (Late st Contact Info) Description 11/19/2009 Legacy Encounter - Labs HISTORICAL CONVERSION [place] [phone], [place] [address] ProviderYoav MD [facility] [place] [phone] Social History Tobacco Use Types Packs/Day Years [...]
--- OUTSIDE RECORDS SUMMARY | 2024-10-10 14:18 | XMS_ITS | Encounter Summary ---
Author Organization [facility] Address [address] [place] [address] Phone Care Team Providers Care Machine Hoop Maker Name Role Phone Unavailable Primary Care Provider Unavailabl e Encounter Details Date Type Department Care Team (Late st Contact Info) Description 06/29/2012 Legacy Encounter - Labs HISTORICAL CONVERSION [place] [phone], [place] [address] ProviderYoav MD [facility] [place]Jeff[place] [phone] Social History Tobacco Use Types Packs/Day Years [...] LAB RESULT SCAN PROCEDURE 06/29/2012 12:00 AM INKER MACHINE documented in this encounter Results * DPS CONVERSION - LAB RESULT SCAN PROCEDURE (06/29/2012 12:00 AM INKER MACHINE) Narrative 06/29/2012 12:00 AM INKER MACHINE Ordered by an unspecified provider. us Historical Provider LAB BLOOD ORDERABLES Day l Result documented in this encounter Visit Diagnoses Not on filedocumented in this encounter
--- OUTSIDE RECORDS SUMMARY | 2024-10-10 14:18 | XMS_ITS | Encounter Summary ---
Author Organization [facility] Address [address] [place] [address] Phone Care Team Providers Care Instructor Nurse Name Role Phone Unavailable Primary Care Provider Unavailabl e Encounter Details Date Type Department Care Team (Late st Contact Info) Description 01/18/2014 Legacy Encounter - Labs HISTORICAL CONVERSION [place] [phone], [place] [address] ProviderYoav MD [facility] [place] [phone] Social History Tobacco Use Types Packs/Day Years [...]
--- OUTSIDE RECORDS SUMMARY | 2024-10-10 14:18 | XMS_ITS | Encounter Summary ---
Author Organization [facility] Address [address] [place] [address] Phone Care Team Providers Care Director Of Science Name Role Phone Unavailable Primary Care Provider Unavailabl e Encounter Details Date Type Department Care Team (Late st Contact Info) Description 03/23/2014 Legacy Encounter - Labs HISTORICAL CONVERSION [place] [phone], [place] [address] ProviderYoav MD [facility] [place] [phone] Social History Tobacco Use Types Packs/Day Years [...]
--- OUTSIDE RECORDS SUMMARY | 2024-10-10 14:18 | XMS_ITS | Encounter Summary ---
Author Organization [facility] Address [address] [place] [address] Phone Care Team Providers Care Instrumentation Technologist Name Role Phone Unavailable Primary Care Provider Unavailabl e Encounter Details Date Type Department Care Team (Late st Contact Info) Description 03/26/2009 Abstract HISTORICAL CONVERSION [place] [id number] [phone] ProviderYoav MD [facility] [place] [phone] Social History Tobacco Use Types Packs/Day Years [...]
--- OUTSIDE RECORDS SUMMARY | 2024-10-10 14:18 | XMS_ITS | Encounter Summary ---
Author Organization [facility] Address [address] [place] [address] Phone Care Team Providers Care Ammonia Worker Name Role Phone Unavailable Primary Care Provider Unavailabl e Encounter Details Date Type Department Care Team (Late st Contact Info) Description 06/18/2009 Legacy Encounter - Labs HISTORICAL CONVERSION [place] [phone], [place] [address] ProviderYoav MD [facility] [place] [phone] Social History Tobacco Use Types Packs/Day Years [...] LAB RESULT SCAN PROCEDURE 06/18/2009 12:00 AM BIOLOGY LABORATORY ASSISTANT documented in this encounter Results * DPS CONVERSION - LAB RESULT SCAN PROCEDURE (06/18/2009 12:00 AM BIOLOGY LABORATORY ASSISTANT) Narrative 06/18/2009 12:00 AM BIOLOGY LABORATORY ASSISTANT Ordered by an unspecified provider. us Historical Provider LAB BLOOD ORDERABLES Day l Result documented in this encounter Visit Diagnoses Not on filedocumented in this encounter
--- OUTSIDE RECORDS SUMMARY | 2024-10-10 14:18 | XMS_ITS | Encounter Summary ---
Author Organization [facility] Address [address] [place] [address] Phone Care Team Providers Care Blower Room Attendant Name Role Phone Unavailable Primary Care Provider Unavailabl e Encounter Details Date Type Department Care Team (Late st Contact Info) Description 10/29/2013 Legacy Encounter - Labs HISTORICAL CONVERSION [place] [phone], [place] [address] ProviderYoav MD [facility] [place] [phone] Social History Tobacco Use Types Packs/Day Years [...]
--- OUTSIDE RECORDS SUMMARY | 2024-10-10 14:18 | XMS_ITS | Encounter Summary ---
Author Organization [facility] Address [address] [place] [address] Phone Care Team Providers Care Automotive Design Drafter Name Role Phone Unavailable Primary Care Provider Unavailabl e Encounter Details Date Type Department Care Team (Late st Contact Info) Description 09/12/2010 Legacy Encounter - Labs HISTORICAL CONVERSION [place] [phone], [place] [address] ProviderYoav MD [facility] [place] [address] Social History Tobacco Use Types Packs/Day Years [...]
--- OUTSIDE RECORDS SUMMARY | 2024-10-10 14:18 | XMS_ITS | Encounter Summary ---
Author Organization [facility] Address [address] [place] [address] Phone Care Team Providers Care Microsoft Bi Developer Name Role Phone Unavailable Primary Care Provider Unavailabl e Encounter Details Date Type Department Care Team (Late st Contact Info) Description 07/06/2009 Abstract HISTORICAL CONVERSION [place] [phone] ProviderYoav MD [facility] [place] [phone] Social History Tobacco Use Types Packs/Day Years [...]
--- OUTSIDE RECORDS SUMMARY | 2024-10-10 14:18 | XMS_ITS | Encounter Summary ---
Author Organization [facility] Address [address] [place] [address] Phone Care Team Providers Care Sixth Grade Teacher Name Role Phone Unavailable Primary Care Provider Unavailabl e Encounter Details Date Type Department Care Team (Late st Contact Info) Description 03/27/2015 Clinical Support HISTORICAL [id number] [address] ProviderYoav MD [facility] [place] [phone] Social History Tobacco Use Types Packs/Day Years [...]
--- OUTSIDE RECORDS SUMMARY | 2024-10-10 14:18 | XMS_ITS | Encounter Summary ---
Author Organization [facility] Address [address] [place] [address] Phone Care Team Providers Care Talent Consultant Name Role Phone Unavailable Primary Care Provider Unavailabl e Encounter Details Date Type Department Care Team (Late st Contact Info) Description 03/13/2015 Legacy Encounter - Labs HISTORICAL CONVERSION [place] [phone], [place] [address] ProviderYoav MD [facility] [place] [phone] Social History Tobacco Use Types Packs/Day Years [...]
--- OUTSIDE RECORDS SUMMARY | 2024-10-10 14:18 | XMS_ITS | Encounter Summary ---
Author Organization [facility] Address [address] [place] [address] Phone Care Team Providers Care Net Making Supervisor Name Role Phone Unavailable Primary Care Provider Unavailabl e Encounter Details Date Type Department Care Team (Late st Contact Info) Description 06/11/2011 Legacy Encounter - Labs HISTORICAL CONVERSION [place] [phone], [place] [address] ProviderYoav MD [facility] [place] [phone] Social History Tobacco Use Types Packs/Day Years [...] LAB RESULT SCAN PROCEDURE 06/11/2011 12:00 AM INTERNAL MEDICINE NURSE documented in this encounter Results * DPS CONVERSION - LAB RESULT SCAN PROCEDURE (06/11/2011 12:00 AM INTERNAL MEDICINE NURSE) Narrative 06/11/2011 12:00 AM INTERNAL MEDICINE NURSE Ordered by an unspecified provider. us Historical Provider LAB BLOOD ORDERABLES Day l Result documented in this encounter Visit Diagnoses Not on filedocumented in this encounter
--- OUTSIDE RECORDS SUMMARY | 2024-10-10 14:18 | XMS_ITS | Encounter Summary ---
Author Organization [facility] Address [address] [place] [address] Phone Care Team Providers Care Solar Development Engineer Name Role Phone Unavailable Primary Care Provider Unavailabl e Encounter Details Date Type Department Care Team (Late st Contact Info) Description 02/13/2014 Legacy Encounter - Labs HISTORICAL CONVERSION [place] [phone], [place] [address] ProviderYoav MD [facility] [place] [phone] Social History Tobacco Use Types Packs/Day Years [...]
--- OUTSIDE RECORDS SUMMARY | 2024-10-10 14:18 | XMS_ITS | Encounter Summary ---
Author Organization [facility] Address [address] [place] [address] Phone Care Team Providers Care Representative Name Role Phone Unavailable Primary Care Provider Unavailabl e Encounter Details Date Type Department Care Team (Late st Contact Info) Description 08/18/2015 Legacy Encounter - Labs HISTORICAL CONVERSION [place] [phone], [place] [address] ProviderYoav MD [facility] [place] [phone] Social History Tobacco Use Types Packs/Day Years [...]
--- OUTSIDE RECORDS SUMMARY | 2024-10-10 14:18 | XMS_ITS | Encounter Summary ---
Author Organization [facility] Address [address] [place] [address] Phone Care Team Providers Care Central Service Tech Name Role Phone Unavailable Primary Care Provider Unavailabl e Encounter Details Date Type Department Care Team (Late st Contact Info) Description 07/28/2006 Legacy Encounter - Labs HISTORICAL CONVERSION [place] [phone], [place] [address] ProviderYoav MD [address] [place] [address] Social History Tobacco Use Types Packs/Day Years [...] LAB RESULT SCAN PROCEDURE 07/28/2006 12:00 AM HOME HEALTH CARE WORKER DPS CONVERSION - LAB RESULT SCAN PROCEDURE 07/28/2006 12:00 AM HOME HEALTH CARE WORKER documented in this encounter Results * DPS CONVERSION - LAB RESULT SCAN PROCEDURE (07/28/2006 12:00 AM HOME HEALTH CARE WORKER) Narrative 07/28/2006 12:00 AM HOME HEALTH CARE WORKER Ordered by an unspecified provider. Historical Provider LAB BLOOD ORDERABLES Day l Result * DPS CONVERSION - LAB RESULT SCAN PROCEDURE (07/28/2006 12:00 AM HOME HEALTH CARE WORKER) Narrative 07/28/2006 12:00 AM HOME HEALTH CARE WORKER Ordered by an unspecified provider. Historical Provider LAB BLOOD ORDERABLES Day l Result documented in this encounter Visit Diagnoses Not on filedocumented in this encounter
--- OUTSIDE RECORDS SUMMARY | 2024-10-10 14:18 | XMS_ITS | Clinical Summary ---
Author Organization [facility] Address [address] [place] [address] Care Team Providers Care Junior Legal Secretary Name Role Phone Pcp, No Primary Care [...] 1985 Mammogram 2004 Colonoscopy 2009 Influenza Vaccine 2024 02/26/2018, , 02/20/2012 Insurance [employer] [facility]GD MEDICARE [facility] Care Teams Junior Legal Secretary Relationship Specialty Start Date End Date Pcp, No PCP - General General Medicine 05/27/24
--- OUTSIDE RECORDS SUMMARY | 2024-10-10 14:18 | XMS_ITS | Encounter Summary ---
Author Organization [facility] Address [address] [place] [address] Phone Care Team Providers Care Log Buncher Name Role Phone Unavailable Primary Care Provider Unavailabl e Encounter Details Date Type Department Care Team (Late st Contact Info) Description 01/20/2013 Legacy Encounter - Labs HISTORICAL CONVERSION [place] [phone], [place] [address] ProviderYoav MD [facility] [place] [phone] Social History Tobacco Use Types Packs/Day Years [...]
--- OUTSIDE RECORDS SUMMARY | 2024-10-10 14:18 | XMS_ITS | Encounter Summary ---
Author Organization [facility] Address [address] [place] [address] Phone Care Team Providers Care Automotive Internet Sales Manager Name Role Phone Unavailable Primary Care Provider Unavailabl e Encounter Details Date Type Department Care Team (Late st Contact Info) Description 10/22/2012 Legacy Encounter - Labs HISTORICAL CONVERSION [place] [phone], [place] [address] ProviderYoav MD [facility] [place] [facility] [place] [phone] Social History Tobacco Use Types Packs/Day Years [...]
--- OUTSIDE RECORDS SUMMARY | 2024-10-10 14:19 | XMS_ITS | Encounter Summary ---
Author Organization [facility] Address [address] [place] [address] Phone Care Team Providers Care Mechanical Technical Service Specialist Name Role Phone Unavailable Primary Care Provider Unavailabl e Encounter Details Date Type Department Care Team (Late st Contact Info) Description 10/05/2008 Legacy Encounter - Labs HISTORICAL CONVERSION [place] [phone], [place] [address] ProviderYoav MD [facility] [place] [phone] Social History Tobacco Use Types Packs/Day Years [...]
--- OUTSIDE RECORDS SUMMARY | 2024-10-10 14:19 | XMS_ITS | Encounter Summary ---
Author Organization [facility] Address [address] [place] [address] Phone Care Team Providers Care License And Permit Specialist Name Role Phone Unavailable Primary Care Provider Unavailabl e Encounter Details Date Type Department Care Team (Late st Contact Info) Description 11/20/2005 Legacy Encounter - Labs HISTORICAL CONVERSION [place] [phone], [place] [address] ProviderYoav MD [facility] [place] [address] Social History Tobacco Use Types Packs/Day Years [...]
--- OUTSIDE RECORDS SUMMARY | 2024-10-10 14:19 | XMS_ITS | Encounter Summary ---
Author Organization [facility] Address [address] [place] [address] Phone Care Team Providers Care Analytics Lead Name Role Phone Unavailable Primary Care Provider Unavailabl e Encounter Details Date Type Department Care Team (Late st Contact Info) Description 11/06/2006 Legacy Encounter - Labs HISTORICAL CONVERSION [place] [phone], [place] [address] ProviderYoav [place] [address] Social History Tobacco Use Types Packs/Day Years [...] AM CDT Ordered by an unspecified provider. [facility] Provider LAB BLOOD ORDERABLES Day l Result * DPS CONVERSION - LAB RESULT SCAN PROCEDURE (11/06/2006 12:00 AM CDT) Narrative 11/06/2006 12:00 AM CDT Ordered by an unspecified provider. [facility] Provider LAB BLOOD ORDERABLES Day l Result * DPS CONVERSION - LAB RESULT SCAN PROCEDURE (11/06/2006 12:00 AM CDT) Narrative 11/06/2006 12:00 AM CDT Ordered by an unspecified provider. [facility] Provider LAB BLOOD ORDERABLES Day l Result documented in this encounter Visit Diagnoses Not on filedocumented in this encounter
--- OUTSIDE RECORDS SUMMARY | 2024-10-10 14:19 | XMS_ITS | Encounter Summary ---
Author Organization [facility] Address [address] [place] [address] Phone Care Team Providers Care Bus And Sys Integration Senior Manager Name Role Phone Unavailable Primary Care Provider Unavailabl e Encounter Details Date Type Department Care Team (Late st Contact Info) Description 10/28/2005 Legacy Encounter - Labs HISTORICAL CONVERSION [place] [phone], [place] [address] ProviderYoav MD [facility] [place] [address] Social History Tobacco Use Types Packs/Day Years [...]
--- OUTSIDE RECORDS SUMMARY | 2024-10-10 14:19 | XMS_ITS | Encounter Summary ---
Author Organization [facility] Address [address] [place] [address] Phone Care Team Providers Care Manufacturing Production Technician Name Role Phone Unavailable Primary Care Provider Unavailabl e Encounter Details Date Type Department Care Team (Late st Contact Info) Description 09/18/2008 Legacy Encounter - Labs HISTORICAL CONVERSION [place] [phone], [place] [address] ProviderYoav MD [facility] [place]Gregory [place] [phone] Social History Tobacco Use Types Packs/Day Years [...]
[2024-10-10 14:23] VITALS: PULSE 76; O2SAT 95
--- NOTE | 2024-10-10 14:23 | MHC.OFFVIS ---
Vital Signs 10/10/24 14:23 Height 5 ft 5 in Pulse 76 Pulse Source Pulse Oximeter Pulse Oximetry (%) 95 Oxygen Delivery Method Room Air Intake Visit Reasons: MAT transfer to Dr.J Avina sulfa Allergy (Mild, Uncoded 09/21/24 14:03) Hives HPI Comments Details: She is doing well. She reports 2/.5 tid Suboxone. She was prescribed pills in [place] and when moved here needed to get on Suboxone. She was asking about televisits. 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 Chronic low back pain Discoid lupus Thyroid disease Raynaud disease Neuropathy Arthritis Anemia Philipp thyroiditis, fibrous variant Polyarticular arthritis Hypertension Osteopenia of both ankles Surgical History History of ankle surgery History of tonsillectomy History of knee replacement Family History Paternal Grandfather Rheumatoid arthritis Lupus Father ALS (amyotrophic lateral sclerosis) Mother Macular degeneration Social History Household Members: None Housing: Apartment Alcohol intake: never Patient Tobacco Use Status: Never used Tobacco e-Cigarette/Vaping Use: Never Used Second Hand Smoke Exposure: No service: No Current occupational status: disabled Cognitive needs: No Hearing needs: No Vision needs: No Review of Systems Const All systems reviewed & are unremarkable except as noted in HPI and below Physical Exam Vital Signs: Last Vital Signs Pulse 76 10/10/24 14:23 Pulse Ox 95 10/10/24 14:23 Oxygen Delivery Method Room Air 10/10/24 14:23 Const General: cooperative Results AMB 14 Panel Urine Drug Screen Urine Marijuana (THC) Negative Last Edit by Parveen Michel CMA on 10/10/24 14:28 Urine Cocaine Negative Last Edit by Parveen Michel CMA on 10/10/24 14:28 Urine Morphine Negative Last Edit by Parveen Michel CMA on 10/10/24 14:28 Urine Methamphetamine Negative Last Edit by Parveen Michel CMA on 10/10/24 14:28 Urine Amphetamine Negative Last Edit by Parveen Michel CMA on 10/10/24 14:28 Urine Benzodiazepine Positive Last Edit by Parveen Michel CMA on 10/10/24 14:28 Urine Barbiturates Negative Last Edit by Parveen Michel CMA on 10/10/24 14:28 Urine Methadone Negative Last Edit by Parveen Michel CMA on 10/10/24 14:28 Urine Buprenorphine Positive Last Edit by Parveen Michel CMA on 10/10/24 14:28 Urine Tricyclic Antidepressant Negative Last Edit by Parveen Michel CMA on 10/10/24 14:28 Urine MDMA Negative Last Edit by Parveen Michel CMA on 10/10/24 14:28 Urine Oxycodone Negative Last Edit by Parveen Michel CMA on 10/10/24 14:28 Urine Phencyclidine Negative Last Edit by Parveen Michel CMA on 10/10/24 14:28 Urine Propoxyphene Negative Last Edit by Parveen Michel CMA on 10/10/24 14:28 Results Reviewed Results Reviewed: Laboratory Last Values POC Urine Buprenorphine Positive 10/10/24 14:25 POC Urine Morphine Negative 10/10/24 14:25 POC Urine Oxycodone Negative 10/10/24 14:25 POC Urine Methadone Negative 10/10/24 14:25 POC Urine Propoxyphene Negative 10/10/24 14:25 POC Urine Barbiturates Negative 10/10/24 14:25 POC U Tricyclic Antidpr Negative 10/10/24 14:25 POC Urine PCP Negative 10/10/24 14:25 POC Ur Amphetamines Negative 10/10/24 14:25 POC Ur Methamphetamine Negative 10/10/24 14:25 POC Urine MDMA Negative 10/10/24 14:25 POC Ur Benzodiazepine Positive 10/10/24 14:25 POC Urine Cocaine Negative 10/10/24 14:25 POC Ur Marijuana (THC) Negative 10/10/24 14:25 Assessment & Plan Assessment & Plan (1) Opioid use disorder: Comment: She is doing well and understands she can use Sublocade to get off opioids Code(s): F11.90 - Opioid use, unspecified, uncomplicated Category: Medical Plan: Continue Suboxone 2/.5 tid,90 and three refills.She uses gabapentin for pain so may continue See in four months. Orders: Orders AMB 14 Panel Urine Drug Screen Today Z51.81 - Encounter for therapeutic drug level monitoring Medications: New buprenorphine-naloxone 2-0.5 mg (Suboxone) place 1 strip/tab under (each) side of tongue 1 film sublingual TID 90 ea 3RF 30 days Coding Level of Care Code Est Pt Level 3 (75754) Diagnoses Opioid use disorder F11.90
== END 2024-10-10 14:44 | disposition home or self-care (01) ==
LOC: HO.HID 14:10
PROVIDERS: PCP Nurse Practitioner Family; Visit Provider Internal Medicine
DX: F11.90 Opioid use, unspecified, uncomplicated (principal)
CPT/HCPCS: 99213

== ENCOUNTER → 2024-10-10 14:10 | Outpatient (BNVA) | payer MEDICARE, MEDICAID, SELFPAY | PROVIDERS: PCP Nurse Practitioner Family; Visit Provider Internal Medicine | DX: F11.20 Opioid dependence, uncomplicated (principal); Z51.81 Encounter for therapeutic drug level monitoring | CPT/HCPCS: 99212 ==

== ENCOUNTER 2024-11-04 14:58 | Outpatient (REF) | payer MEDICARE, MEDICAID, SELFPAY ==
--- OUTSIDE RECORDS SUMMARY | 2024-11-04 15:00 | XMS_ITS | Encounter Summary ---
Author Organization [facility] Address [address] [place] [address] Phone Care Team Providers Care Poly Area Supervisor Name Role Phone Unavailable Primary Care Provider Unavailabl e Encounter Details Date Type Department Care Team (Late st Contact Info) Description 09/13/2012 Legacy Encounter - Labs HISTORICAL CONVERSION [place] [phone], [place] [address] ProviderYoav MD [facility] [place] [address] Social History Tobacco Use Types Packs/Day Years [...]
[2024-11-04 18:38] LABS: TSH reflex Free T4 2.89 uIU/mL (0.32-4.0)
== END 2024-11-04 14:59 | disposition home or self-care (01) ==
LOC: HO.WFDLDS 14:58
PROVIDERS: Visit Provider Nurse Practitioner Family
DX: E03.9 Hypothyroidism, unspecified (principal)
CPT/HCPCS: 36415; 84443

== ENCOUNTER 2024-11-07 12:30 | Outpatient (AMB) | payer MEDICARE, MEDICAID, SELFPAY ==
--- NOTE | 2024-11-07 12:35 | MHC.PC.OV ---
Vital Signs 11/07/24 12:40 Height 5 ft 5 in Weight 191 lb 6 oz BMI 31.8 BP 117/58 L Blood Pressure Location Lt brachial Position Sitting Respiration 16 Pulse 77 Pulse Source Pulse Oximeter Temp 99.0 F Temp Source Oral Pulse Oximetry (%) 97 Oxygen Delivery Method Room Air Intake Visit Reasons: 6 wks hypothyroidism Intake Note: patient here for 6 wks follow up o hypothyroids Clinical Reimbursement Specialist Required: No Is last menstrual period known: No Post menopausal: No Patient : No Allergies sulfa Allergy (Mild, Uncoded 11/07/24 12:56) Hives Medication List - Last Reconciled 11/07/24 by Sunni Browne CNP buprenorphine-naloxone 2-0.5 mg (Suboxone) 1 film sublingual TID buprenorphine-naloxone 2-0.5 mg (Suboxone) 1 film sublingual TID 30 days cholecalciferol (vitamin D3) (Vitamin D3) 125 mcg PO DAILY 90 days cyanocobalamin (vitamin B-12) (Vitamin B-12) 2,500 mcg sublingual DAILY 30 days diclofenac epolamine 1.3% (Flector) 1 patch transdermal .qd 30 days duloxetine (Cymbalta) 60 mg PO DAILY 30 days ferrous sulfate 325 mg PO DAILY 30 days gabapentin 300 mg PO TID 30 days gabapentin 100 mg PO DAILY hydroxychloroquine (Plaquenil) 200 mg PO DAILY levothyroxine 150 mcg PO DAILY 30 days lidocaine 5% 2 patches topical DAILY meloxicam 7.5 mg PO BID metoprolol succinate ER 12.5 mg PO DAILY omeprazole 20 mg PO DAILY 90 days tizanidine 2 mg PO Q8H PRN 30 days trazodone 150 mg PO BEDTIME PRN Tobacco use date assessed: 11/07/24 Dental Screening Dental Screen Date: 11/07/24 Did you have a dental visit in the last 12 months?: Yes Did you have a dental problem in the last 6 months where you did not have access to dental care?: No Was dental information given to patient?: Patient has dentist HPI HPI Comments History of Present Illness Details 58-year-old female presents for hypothyroidism follow-up. She admits to taking her medications as prescribed without adverse reactions. She reports persistent, chronic low back pain/stiffness which is refractory to current treatment regimen. She had physical therapy which was only effective for a short while. She was followed by [facility] pain management clinic and willing to follow-up with them again. [facility] Medical History (Updated 10/10/24 @ 14:49 by Bianca Blake MD) Opioid use disorder Osteoporosis [facility] current use of immunosuppressive drug Chronic low back pain Discoid lupus Thyroid disease Raynaud disease Neuropathy Arthritis Anemia Philipp thyroiditis, fibrous variant Polyarticular arthritis Hypertension Osteopenia of both ankles Surgical History History of ankle surgery History of tonsillectomy History of knee replacement Family History Paternal Grandfather Rheumatoid arthritis Lupus Father ALS (amyotrophic lateral sclerosis) Mother Macular degeneration Social History Household Members: None Housing: Apartment Alcohol intake: never Patient Tobacco Use Status: Never used Tobacco e-Cigarette/Vaping Use: Never Used Second Hand Smoke Exposure: No service: No Current occupational status: disabled Cognitive needs: No Hearing needs: No Vision needs: No Questionnaire Thrive Questionnaire Date Thrive assessed: 08/22/24 I am a: Patient What is your living situation today?: I have a steady place to live Within the past 12 months, did the food you bought not last and you didn't have the money to get more?: Never true Within the past 12 months, did you worry whether your food would run out before you got money to buy more?: Never true Do you have trouble paying for medicines?: No Do you have trouble getting transportation to medical appointments?: No Do you have trouble paying your heating and electricity bill?: No Do you have trouble taking care of your child, family member or friend?: No Do you have trouble with day-to-day activities such as bathing, preparing meals, shopping, managing finances, etc.?: No Are you currently unemployed and looking for a job?: No Are you interested in more education?: I choose not to answer this question Please select the resources that you would like help with: None Currently or been in a relationship where the following occur: I choose not to answer THRIVE Score: 0 LATRICIA-7 AMB Questionnaire LATRICIA-7 Date LATRICIA - 7 assessed: 08/22/24 Source: Developed by Drs. Corby Peter, Porsha Mata, Jose Harrell and colleagues, with an educational fausto from [employer]. Review of Systems Const Details: Const Denies chills, Denies fatigue, Denies fever(s), Denies headache(s) and Denies weakness ENT Denies dizziness and Denies headache(s) Card Denies chest pain, Denies lightheadedness, Denies dyspnea and Denies other (Palpitations) Resp Denies cough, Denies dyspnea, Denies wheezing and Denies other ( shortness of breath) GI Denies abdominal pain, Denies melena, Denies hematochezia, Denies change in bowel habits, Denies dyspepsia and Denies nausea Denies hematuria and Denies dysuria Musc Denies abnormal gait, Denies myalgias, Denies arthralgias, Denies numbness and Denies tingling Skin/Breast Denies rash, Denies unusual bruising and Denies wounds Neuro Denies abnormal gait, Denies dizziness, Denies headache(s), Denies memory loss, Denies numbness, Denies Sensory deficit (Neuro), Denies tingling and Denies weakness Psych Denies anxiety, Denies depression, Denies memory loss Endo Denies cold intolerance, Denies fatigue, Denies heat intolerance, Denies polydipsia and Denies polyuria Aller/Immun Denies wheezing Physical exam (Primary Care) Vital Signs: Last Vital Signs Temp 99.0 F 11/07/24 12:40 Pulse 77 11/07/24 12:40 Resp 16 11/07/24 12:40 BP 117/58 L 11/07/24 12:40 Pulse Ox 97 11/07/24 12:40 Oxygen Delivery Method Room Air 11/07/24 12:40 BMI result Body Mass Index 31.8 Tobacco/Smoking Status: Tobacco use Status Tobacco use date assessed 11/07/24 11/07/24 12:43 Patient Tobacco Use Status Never used Tobacco 11/07/24 12:37 e-Cigarette/Vaping Use Never Used 11/07/24 12:37 Thrive Assessment: Date of Thrive Assessment Date Thrive assessed 08/22/24 11/07/24 12:37 Currently or been in a relationship where the following occur: I choose not to answer Const Other: General: no acute distress and well developed Nutritional Appearance: well nourished Orientation/consciousness: patient oriented x3 HENUT Head: Yes normocephalic and Yes atraumatic Eyes General: appearance normal, both eyes and all related structures Pupils: Equal, round and reactive pupils present EOM: EOMs intact bilaterally Resp Effort & Inspection: normal respiratory effort Auscultation: clear to auscultation bilaterally Cardio Rate: regular rate Rhythm: regular rhythm Heart sounds: S1 normal heart sound present, S2 normal heart sound present, no gallops, no murmurs and no rubs GI Palpation (GI): No Abdominal aortic bruit present, Soft to palpation, nontender, No hepatosplenomegaly present and No Rebound tenderness present Auscultation: normal bowel sounds General: Yes no CVA tenderness Back/Spine/Pelvis Back: no CVA tenderness Cervical Spine: cervical ROM normal and No Cervical spine tenderness Thoracic/Lumbar Spine: thoraco-lumbar ROM normal, No pain with thoraco-lumbar ROM, No thoracic spinal tenderness and positive lumbar spinal tenderness Extrem General: Yes normal to inspection, No edema and No calf tenderness Skin General: warm and dry. Normal skin color. Normal skin turgor Neuro General: patient oriented x3, gait normal and no focal neuro deficit Cranial nerves: Yes Equal, round and reactive pupils present Cognition (Neuro): normal cognition Gait exam (Neuro): Normal gait present Sensory Exam: No Sensory deficit (Neuro) Psych Appearance: grossly normal Affect: normal affect Attitude: cooperative Thought process: Normal thought process present Coding Level of Care Code Est Pt Level 4 (12535) Diagnoses Hypothyroidism E03.9 Primary hypertension I10 Hypertension type: primary hypertension Lumbar spondylosis M47.816 Assessment & Plan Assessment & Plan (1) Hypothyroidism: Code(s): E03.9 - Hypothyroidism, unspecified Category: Medical Plan: Recent TSH is normal. Continue current treatment regimen. Perform TSH/T4 blood work a few days before next visit. Follow-up in 3 months. Return sooner with symptoms or concerns. Verbalized understanding and agreed with the treatment plan. (2) Hypertension: Code(s): I10 - Essential (primary) hypertension Category: Medical Qualifiers: Hypertension type: primary hypertension Qualified Code(s): I10 - Essential (primary) hypertension Plan: Blood pressure is 117/58, within goal of less than 140/90. Continue current treatment regimen. Follow-up in 3 months. Verbalized understanding and agreed with the plan. (3) Lumbar spondylosis: Code(s): M47.816 - Spondylosis without myelopathy or radiculopathy, lumbar region Category: Medical Plan: She reports persistent, chronic low back pain/stiffness which is refractory to current treatment regimen. She had physical therapy which was only effective for a short while. She was followed by [facility] pain management clinic and willing to follow-up with them again. Lumbar spine tenderness to palpation. Continue current treatment regimen. Warm/cool compresses encouraged. Referred to [facility] pain management. Follow-up with worsening or new symptoms. Verbalized understanding and agreed with the plan. Orders: Referrals Pain Management Referral M47.816 - Spondylosis without myelopathy or radiculopathy, lumbar region Medications: Refilled diclofenac epolamine 1.3% (Flector) 1 patch transdermal .qd 30 days 30 ea 3RF M54.40 - Lumbago with sciatica, unspecified side
[2024-11-07 12:40] VITALS: BP 117/58; PULSE 77; RESP 16; TEMP 37.2; O2SAT 97; BMI 31.8
--- OUTSIDE RECORDS SUMMARY | 2024-11-07 13:52 | XMS_ITS | Encounter Summary ---
Author Organization [facility] Address [address] [place] [phone] Phone Care Team Providers Care Security Analyst Name Role Phone Unavailable Primary Care Provider Unavailabl e Encounter Details Date Type Department Care Team (Late st Contact Info) Description 09/13/2012 [facility] Encounter - Labs HISTORICAL CONVERSION [address] [id number], [place] [address] ProviderYoav MD [facility] [place] [address] Social History Tobacco Use Types Packs/Day Years [...]
== END 2024-11-07 13:08 | disposition home or self-care (01) ==
LOC: HO.HMCFM 12:31
PROVIDERS: PCP Nurse Practitioner Family; Visit Provider Nurse Practitioner Family
DX: E03.9 Hypothyroidism, unspecified (principal); I10 Essential (primary) hypertension; M47.816 Spondylosis without myelopathy or radiculopathy, lumbar region

== ENCOUNTER → 2024-11-07 12:30 | Outpatient (BNVA) | payer MEDICARE, MEDICAID, SELFPAY | PROVIDERS: PCP Nurse Practitioner Family; Visit Provider Nurse Practitioner Family | DX: E03.9 Hypothyroidism, unspecified (principal); I10 Essential (primary) hypertension; M47.816 Spondylosis without myelopathy or radiculopathy, lumbar region | CPT/HCPCS: 99212 ==

== ENCOUNTER 2024-11-18 14:30 | Outpatient (AMB) | payer MEDICARE, MEDICAID, SELFPAY ==
[2024-11-18 14:32] VITALS: BP 128/58; PULSE 83; RESP 166; O2SAT 95; BMI 31.4
--- NOTE | 2024-11-18 14:32 | MHC.OFFVIS ---
Vital Signs 11/18/24 14:32 Height 5 ft 5 in Weight 189 lb BMI 31.4 BP 128/58 L Blood Pressure Location Rt brachial Position Sitting Respiration 166 H Pulse 83 Pulse Source Pulse Oximeter Pulse Oximetry (%) 95 Oxygen Delivery Method Room Air Intake Visit Reasons: Spondylosis w/o myelopathy or radiculopathy Cnc Manufacturing Engineer Required: No Accompanied by: Self / Same As Patient Allergies sulfa Allergy (Mild, Uncoded 11/07/24 12:56) Hives HPI Comments Details: The patient is a 58-year-old female presenting with chronic lower back pain. The pain has been persistent for many years, with various interventions providing limited relief. Previous treatments included nerve ablation and injections, which offered temporary relief at best. Endorses midline lower back pain with radiation across lower back. Denies radiation down either lower extremity. Denies red flag symptoms including new loss of bowel, bladder or saddle anesthesia. The patient has a history of scoliosis, disc protrusion, and arthritis, contributing to her back pain. She also reports a diagnosis of lupus in 2013, which has progressively worsened her condition. The patient has tried various medications, including Tizanidine and Baclofen, with Tizanidine providing better relief. She also uses heat and ice therapy, and receives manipulation therapy every four weeks. The patient reports neuropathy in her feet, for which she takes Gabapentin. She denies having diabetes, and the neuropathy is not diabetic in nature. - Onset: Chronic, persistent for many years - Quality: Stiffness and pain across the lower back, extending to the tailbone and hips - Location: Lower back, tailbone, and hips - Radiation: Pain does not radiate down the legs, only to the hips - Exacerbating factors: Standing, physical activity - Relieving factors: Tizanidine, heat, ice, manipulation therapy - Affect: Pain impacts daily activities and causes frustration - Analgesia: Currently using Tizanidine and Gabapentin; previous use of Baclofen and injections - Adverse Effects: Tizanidine causes sleepiness - Activities of Daily Living: Pain limits physical activity and causes difficulty in standing - Aberrant Drug Related Behaviors: No evidence of misuse; previous opioid use without withdrawal issues [facility] Medical History (Updated 11/18/24 @ 15:29 by Rosi Benedict, CRATE ICER, APARTMENT MAINTENANCE TECHNICIAN) Opioid use disorder 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 Chronic low back pain Discoid lupus Thyroid disease Raynaud disease Neuropathy Arthritis Anemia Philipp thyroiditis, fibrous variant Polyarticular arthritis Hypertension Osteopenia of both ankles Surgical History History of ankle surgery History of tonsillectomy History of knee replacement Family History Paternal Grandfather Rheumatoid arthritis Lupus Father ALS (amyotrophic lateral sclerosis) Mother Macular degeneration Social History Household Members: None Housing: Apartment Alcohol intake: never Patient Tobacco Use Status: Never used Tobacco e-Cigarette/Vaping Use: Never Used Second Hand Smoke Exposure: No service: No Current occupational status: disabled Cognitive needs: No Hearing needs: No Vision needs: No Review of Systems Const Details: - Musculoskeletal: Reports chronic lower back pain, stiffness, and muscle spasms - Neurological: Reports neuropathy in feet, denies radiating pain down legs - General: Denies recent surgeries, reports frustration due to pain Physical Exam Vital Signs: Last Vital Signs Pulse 83 11/18/24 14:32 Resp 166 H 11/18/24 14:32 BP 128/58 L 11/18/24 14:32 Pulse Ox 95 11/18/24 14:32 Oxygen Delivery Method Room Air 11/18/24 14:32 BMI result Body Mass Index 31.4 General: awake, alert, oriented. Answers questions appropriately. Fully engaged in examination. Skin: warm, dry, intact HEENT: Normocephalic. Hearing intact. Cardiac: External chest normal in appearance. Respiratory: No cough, audible wheezing or stridor. Abdomen: without gross distension. MS: No obvious swelling or deformities. Able to stand on bilateral tiptoes and bilateral heels.? Able to transition from sit to stand unassisted. Tenderness over midline lumbar vertebrae and lumbar paraspinal muscles Nontender over bilateral PSIS SLR negative bilaterally Facet loading positive Neurological: Oriented to person, place, time and situation. Thought process intact. No gait abnormalities appreciated. Psychiatric: Appropriate mood and affect. Good judgment and insight. Results Reviewed Results Reviewed: No imaging is available for review. Assessment & Plan Assessment & Plan (1) Lumbar spondylosis: Code(s): M47.816 - Spondylosis without myelopathy or radiculopathy, lumbar region Category: Medical Plan The plan includes ordering an MRI of the lumbar spine to assess the current condition and guide further treatment options. The patient will be contacted to schedule the MRI, and a follow-up appointment will be arranged to discuss the results and potential next steps. Consideration of a spinal cord stimulator was discussed, but current insurance coverage does not support this option unless specific criteria are met. Patient was informed and verbally consented to the use of an ambient scribe for clinic note documentation during this visit. Orders: Orders MR lumbar spine wo con Today M54.9 - Dorsalgia, unspecified Patient Instructions: - Schedule and complete the MRI of the lumbar spine as soon as possible. - Contact the office to arrange a follow-up appointment after the MRI is completed. - Continue current pain management strategies, including Tizanidine and Gabapentin, as prescribed. Coding Level of Care Code Est Pt Level 3 (87834) Complex EM visit Add On G2211 Diagnoses Lumbar spondylosis M47.816
--- OUTSIDE RECORDS SUMMARY | 2024-11-18 14:51 | XMS_ITS | Encounter Summary ---
Author Organization [facility] Address [address] [place] [phone] Phone Care Team Providers Care Mutton Puncher Name Role Phone Unavailable Primary Care Provider Unavailabl e Encounter Details Date Type Department Care Team (Late st Contact Info) Description 09/13/2012 [facility] Encounter - Labs HISTORICAL CONVERSION [address] [id number], [place] [address] ProviderYoav MD [facility] [place] [address] Social History Tobacco Use Types Packs/Day Years [...]
== END 2024-11-18 15:09 | disposition home or self-care (01) ==
LOC: HO.PMC 14:31
PROVIDERS: PCP Nurse Practitioner Family; Visit Provider Registered Nurse Emergency
DX: M47.816 Spondylosis without myelopathy or radiculopathy, lumbar region (principal)
CPT/HCPCS: 99213; G2211

== ENCOUNTER → 2024-11-18 14:30 | Outpatient (BNVA) | payer MEDICARE, MEDICAID, SELFPAY | PROVIDERS: PCP Nurse Practitioner Family; Visit Provider Registered Nurse Emergency | DX: M47.816 Spondylosis without myelopathy or radiculopathy, lumbar region (principal) | CPT/HCPCS: 99212 ==

== ENCOUNTER 2024-12-07 16:30 | Outpatient (REF) | payer MEDICARE, SELFPAY ==
--- NOTE | ~2024-12-07 | MR_ITS ---
EXAM: MRI Lumbar Spine without Contrast. TECHNIQUE: Multiplanar multisequence MR imaging was performed through the lumbar spine without contrast. INDICATION: Chronic low back pain, lupus diagnosis 2004, pain felt to improved with conservative therapy. PRIOR: None FINDINGS: 5 non-rib bearing lumbar segments are assumed for numbering purposes. If level specific intervention is planned, correlate with an x-ray to ensure concordant numbering. Marrow and end-plates: Focal Modic 1 changes present involving posterior left L5-S1. Alignment: There is subtle retrolisthesis at L1-2, L2-3, and L5-S1. Soft tissues: There is mild to moderate fatty atrophy of the paraspinal musculature. Conus: The termination of conus medullaris is within normal limits at the level of upper L2. T12-L1: There is mild disc space narrowing and circumferential broad-based disc bulge not causing spinal stenosis or foraminal narrowing. L1-L2: There is mild broad-based disc bulge and disc desiccation without spinal stenosis or foraminal narrowing. L2-L3: There is mild broad-based disc bulge and mild facet arthropathy without spinal stenosis or foraminal narrowing. L3-L4: There is mild loss of disc height and circumferential broad-based disc bulge with bilateral foraminal extrusion and mild facet arthropathy. There is minimal narrowing of left greater than right subarticular zones. There is borderline spinal stenosis. There is mild foraminal narrowing, greater on the left. L4-L5: There is mild circumferential broad-based disc bulge and small left foraminal extrusion with annular fissuring. There is severe right and moderate left facet arthropathy. There is no spinal stenosis. There is minimal narrowing of the left subarticular zone. There is no spinal stenosis. There is mild to moderate bilateral foraminal narrowing. L5-S1: There is circumferential broad-based disc bulge and mild facet arthropathy, greater on right. There is no spinal stenosis. There is moderate bilateral foraminal narrowing. MR/MR lumbar spine wo con IMPRESSION: L3-L4: There is borderline spinal stenosis and mild lateral recess narrowing, greater on the left. L4-L5: There is mild to moderate bilateral foraminal narrowing. L5-S1: There is moderate bilateral foraminal narrowing. Electronically signed by: Chan Camargo MD 12/07/2024 05:31 PM EDT
== END 2024-12-07 16:31 | disposition home or self-care (01) ==
LOC: HO.MRI 16:30
PROVIDERS: PCP Nurse Practitioner Family; Visit Provider Registered Nurse Emergency
DX: M54.9 Dorsalgia, unspecified (principal)
CPT/HCPCS: 72148

== ENCOUNTER → 2024-12-07 16:36 | Outpatient (BNV) | payer MEDICARE, SELFPAY | PROVIDERS: PCP Nurse Practitioner Family; Visit Provider Radiology Diagnostic Radiology | DX: M48.061 Spinal stenosis, lumbar region without neurogenic claudication (principal) | CPT/HCPCS: 72148 ==

== ENCOUNTER 2024-12-16 10:43 | Outpatient (AMB) | payer MEDICARE, SELFPAY ==
--- OUTSIDE RECORDS SUMMARY | 2024-12-16 10:50 | XMS_ITS | Clinical Summary ---
Author Organization [facility] Address [address] [place] [address] Care Team Providers Care Tests Superintendent Name Role Phone Pcp, No Primary Care [...] 68 05/27/2024 2:52 PM EST Temperature 35.4 C (95.7 F) 05/27/2024 2:52 PM EST Respiratory Rate 18 05/27/2024 2:52 PM EST [...] , 02/20/2012 Insurance [employer] [facility]GD MEDICARE [facility] Care Teams Tests Superintendent Relationship Specialty Start Date End Date Pcp, No PCP - General General Medicine 05/27/24
--- OUTSIDE RECORDS SUMMARY | 2024-12-16 10:50 | XMS_ITS ---
Author Name [facility] Results Test Name/Text Value Interpretation Date Range Source ICD-10 CODES Normal 04/02/2023 [facility] AP CLINICAL INFORMATION Healing scars with scattered erosions, blisters per history but no evidence of blisters on exam; dermatitis unsp vs hypersensitivity reaction vs contact dermatitis vs psoriasis vs prurigo vs other Normal 04/02/2023 [facility] AP GROSS DESCRIPTION Received in [...] IgG, IgM, IgA, C3 and fibrinogen. Normal 04/02/2023 [facility] History of Medication Use Medication Directions Dispensed Refills Start Date End Date Stat us nitrofurantoin monohydrate (MACROBID) 100 MG capsule Take 1 capsule (100 mg total) by mouth 2 (two) times a day. 05/27/2024 active hydroxychloroquine (PLAQUENIL) 200 MG tablet Take 200 mg by mouth. active levothyroxine (SYNTHROID) 100 MCG Recon Soln active traZODone (DESYREL) 50 MG tablet Take 50 mg by mouth nightly. active Allergies Allergen Reaction Severity Comment Documented Date Source Statu s SULFA ANTIBIOTICS RASH/DERMATITIS 11/29/[address] [facility] [address] active Problems Problem Status Onset Date Problem Type Date of Resoluti on Source Acute cystitis with hematuria [facility] En[facility] Encounter Type Encounter Reason Primary Diagnosis Location Date Ambulatory Acute cystitis with hematuria Acute cystitis with hematuria [facility] 05/27/2024 Care Team Organization Name Specialty Phone Email Start Date End Da te [place] [facility] PCP Music Professor 06/02/2024 08/10/2024 [facility] 05/27/2024 [place] [facility] NO PCP Primary Care 05/27/2024
--- OUTSIDE RECORDS SUMMARY | 2024-12-16 10:50 | XMS_ITS | Clinical Summary ---
Author Organization [facility] Address [address] [place] [phone] Phone Care Team Providers Care Dial Polisher Name Role Phone Unknown, Unknown Primary Care Provider Unavaangy lable Medications FLECTOR 1.3 % PT12 APPLY ONE PATCH TOPICALLY EVERY 12 HOURS DIRECTED Active DULoxetine (CYMBALTA) 60 MG capsule Active gabapentin (GRALISE) 300 mg ER tablet Active hydrOXYchloroQU INE (PLAQUENIL) 200 mg tablet Take 200 mg by mouth. Active hydroxychloroqu ine (PLAQUENIL) 200 mg capsule Activ e levothyroxine (SYNTHROID) 100 mcg SolR Active METOPROLOL TARTRATE 12.5 MG PO SPLIT TABLET (LOPRESSOR) Active morphine (MSIR) 15 MG tablet Active omeprazole (PRILOSEC) 20 MG capsule Active oxyCODONE-aceta minophen 10-300 mg/5 mL Soln Active tiZANidine (ZANAFLEX) 2 MG tablet Take 2 mg by mouth. Active Active Problems Problem Noted Date Diagnosed Date Chronic bilateral low back pain without sciatica 01/03/2022 Chronic use of opiate for therapeutic purpose Encounter for long-term use of opiate analgesic 01/03/2022 Social History Tobacco Use Types Packs/Day Years Used Date Smoking Tobacco: Never Assessed Education Answer Date Recorded Are you interested in more education? Not on judy e 09/20/2022 Are you concerned about learning? Not on file 09/20/2022 No 09/20/2022 No 09/20/2022 Digital Access Answer Date Recorded No 10/21/2022 No 10/21/2022 Reliable internet access at home? Not on file 10/21/2022 Device with a working camera? Not on file Comments Unknown Sex and Gender Information Value Date Recorded Sex Assigned at Female 12/10/2021 9:34 AM EDT Legal Sex Female 9:25 AM EDT Gender Identity Female 12/10/2021 9:34 AM EDT Sexual Orientation Straight 12/10/2021 9: 34 AM EDT Last Filed Vital Signs Vital Sign Reading Time Taken Comments Blood Pressure 141/73 01/02/2022 3:40 PM EDT Pulse 76 01/02/2022 3:40 PM EDT Temperature - - Respiratory Rate - - Oxygen Saturation 96% 01/02/2022 3:40 PM EDT Inhaled Oxygen Concentration - - Weight - - Height - - Body Mass Index - - Plan of Treatment Health Maintenance Due Date Last Done Comments LIPID PANEL 1964 DEPRESSION SCREENING 1976 SMOKING Hx and SMOKELESS TOB ACCO SCREENING 1977 HIV ONE-TIME SCREENING (18-6 5 YEARS) 1982 PAP SMEAR 1985 MAMMOGRAM 2004 COLOGUARD 2009 COLONOSCOPY 2009 COLORECTAL CANCER SCREENING 2009 FIT TEST 2009 FOBT 2009 SIGMOIDOSCOPY 2009 VIRTUAL COLONOSCOPY 2009 PNEUMOCOCCAL VACCINES (50+ y ears) (1 of 1 - PCV) 2014 ZOSTER VACCINES (1 of 2) 2014 Adult Td,Tdap Booster 10/14/2022 10/14/2012 TSH LEVEL 01/30/2023 01/30/2022 COVID-19 VACCINE (1 - 2023-2 5 season) 2024 HEPATITIS C SCREENING Completed 01/30/2022 HEPATITIS A VACCINES Aged Out No long er eligible based on patient's age to complete this topic HIB VACCINES Aged Out No longer eligi ble based on patient's age to complete this topic MENINGOCOCCAL VACCINES (ACWY) Aged Out No longer eligible based on patient's age to complete this topic MENINGOCOCCAL VACCINES (B) Aged Out N o longer eligible based on patient's age to complete this topic Medical Devices Not on file Insurance MEDICARE PART A & B Member Subscriber Plan / Payer (Ef fective 2020-Present) Name:Fabiana Fraser Member ID:[id number] Relation to Subscriber:Self Name:Fabiana Fraser Subscriber ID:[id number] Payer ID:[id number] Group ID:Not on file Type:Medicare Address: [employer] [address] MEDICARE REPLACEMENT MEDICARE PART A & B Member Subscriber Plan / Payer (Ef fective 2020-Present) Name:Fabiana Fraser Member ID:[id number] Relation to Subscriber:Self Name:Fabiana Fraser Subscriber ID:[id number] Payer ID:[id number] Group ID:Not on file Type:Medicare Address: [employer] [address] MEDICARE REPLACEMENT MEDICARE PART A & B MEDICARE REPLACEMENT MEDICARE PART A & B MEDICARE REPLACEMENT MEDICARE PART A & B MEDICARE REPLACEMENT MEDICARE PART A & B Member Subscriber Plan / Payer (Ef fective 2020-Present) Name:Fabiana Fraser Member ID:[id number] Relation to Subscriber:Self Name:Fabiana Fraser Subscriber ID:[id number] Payer ID:[id number] Group ID:Not on file Type:Medicare Address: [employer] [address] MEDICARE REPLACEMENT MEDICARE PART A & B [facility] MEDICARE REPLACEMENT MEDICARE PART A & B Member Subscriber Plan / Payer (Ef fective 2020-Present) Name:Fabiana Fraser Member ID:[id number] Relation to Subscriber:Self Name:Fabiana Fraser Subscriber ID:[id number] Payer ID:[id number] Group ID:Not on file Type:Medicare Address: [employer] [address] MEDICARE REPLACEMENT [place] [id number] MEDICARE PART A & B MEDICARE REPLACEMENT Care Teams Dial Polisher Relationship Specialty Start Date End Date Unknown, Unknown, PCP - General 12/10/21 Additional Source Comments The information contained in this document represents components of the legal health record. It is not the complete legal health record.[facility]
--- OUTSIDE RECORDS SUMMARY | 2024-12-16 10:50 | XMS_ITS | Encounter Summary ---
Author Organization [facility] Address [address] [place] [address] Phone Care Team Providers Care Gang Investigator Name Role Phone Unavailable Primary Care Provider Unavailabl e Encounter Details Date Type Department Care Team (Late st Contact Info) Description 09/13/2012 Legacy Encounter - Labs HISTORICAL CONVERSION [place] [address] [phone], [place] [address] ProviderYoav MD [facility] [place] [address] Social History Tobacco Use Types Packs/Day Years [...]
[2024-12-16 11:04] VITALS: BP 105/56; PULSE 72; RESP 18; O2SAT 98
--- NOTE | 2024-12-16 11:04 | A.OFFVIS_ITS ---
Vital Signs 12/16/24 11:04 Weight 188 lb BP 105/56 L Blood Pressure Location Lt brachial Position Sitting Respiration 18 Pulse 72 Pulse Source Pulse Oximeter Pulse Oximetry (%) 98 Oxygen Delivery Method Room Air Intake Visit Reasons: Discuss MRI Results Welt Stitch Cleaner Required: No Allergies sulfa Allergy (Mild, Uncoded 11/07/24 12:56) Hives HPI Comments Details: The patient is a 58-year-old female presenting with chronic back pain, review of recent MRI. The pain is primarily due to facet arthropathy at the L4-5 level, which has been confirmed by MRI and previous interventions. The patient has undergone facet joint injections last year at [facility], which provided significant relief, 90%, for a short duration of about four days. Subsequently they performed radiofrequency ablation which did not alleviate her pain. The patient reports that the pain does not radiate to the feet but is localized to the midline lower back. - Onset: Chronic, ongoing for several years - Quality: Aching pain - Location: Primarily at L4-5, with radiation to the tailbone - Exacerbating factors: Movement, possibly due to arthritis - Relieving factors: Facet joint injections provided temporary relief - Affect: Pain impacts daily activities and quality of life - Analgesia: Previous facet injections provided 90% relief for a short duration - Adverse Effects: None reported from current pain management - Activities of Daily Living: Pain localized to tailbone, affecting mobility - Aberrant Drug Related Behaviors: None reported [facility] Medical History (Updated 12/16/24 @ 12:50 by Rosi Benedict, RACE RELATIONS PROFESSOR, EXPLOSIVE OPERATOR GRENADE) Opioid use disorder Osteoporosis senior living current use of immunosuppressive drug Chronic low back pain Discoid lupus Thyroid disease Raynaud disease Neuropathy Arthritis Anemia Philipp thyroiditis, fibrous variant Polyarticular arthritis Hypertension Osteopenia of both ankles Surgical History History of ankle surgery History of tonsillectomy History of knee replacement Family History Paternal Grandfather Rheumatoid arthritis Lupus Father ALS (amyotrophic lateral sclerosis) Mother Macular degeneration Social History Household Members: None Housing: Apartment Alcohol intake: never Patient Tobacco Use Status: Never used Tobacco e-Cigarette/Vaping Use: Never Used Second Hand Smoke Exposure: No service: No Current occupational status: disabled Cognitive needs: No Hearing needs: No Vision needs: No Review of Systems Const Details: - Musculoskeletal: Reports chronic back pain, localized to lower back. Denies radiation to feet. Physical Exam Vital Signs: Last Vital Signs Pulse 72 12/16/24 11:04 Resp 18 12/16/24 11:04 BP 105/56 L 12/16/24 11:04 Pulse Ox 98 12/16/24 11:04 Oxygen Delivery Method Room Air 12/16/24 11:04 General: awake, alert, oriented. Answers questions appropriately. Fully engaged in examination. Skin: warm, dry, intact HEENT: Normocephalic. Hearing intact. Cardiac: External chest normal in appearance. Respiratory: No cough, audible wheezing or stridor. Abdomen: without gross distension. MS: No obvious swelling or deformities. Able to stand on bilateral tiptoes and bilateral heels.? Able to transition from sit to stand unassisted. Tenderness over midline lumbar vertebrae and lumbar paraspinal muscles Nontender over bilateral PSIS SLR negative bilaterally Facet loading positive Neurological: Oriented to person, place, time and situation. Thought process intact. No gait abnormalities appreciated. Psychiatric: Appropriate mood and affect. Good judgment and insight. Results Reviewed Results Reviewed: 12/07/24 MRI Lumbar Spine without Contrast. TECHNIQUE: Multiplanar multisequence MR imaging was performed through the lumbar spine without contrast. INDICATION: Chronic low back pain, lupus diagnosis 2003, pain felt to improved with conservative therapy. PRIOR: None FINDINGS: 5 non-rib bearing lumbar segments are assumed for numbering purposes. If level specific intervention is planned, correlate with an x-ray to ensure concordant numbering. Marrow and end-plates: Focal Modic 1 changes present involving posterior left L5-S1. Alignment: There is subtle retrolisthesis at L1-2, L2-3, and L5-S1. Soft tissues: There is mild to moderate fatty atrophy of the paraspinal musculature. Conus: The termination of conus medullaris is within normal limits at the level of upper L2. T12-L1: There is mild disc space narrowing and circumferential broad-based disc bulge not causing spinal stenosis or foraminal narrowing. L1-L2: There is mild broad-based disc bulge and disc desiccation without spinal stenosis or foraminal narrowing. L2-L3: There is mild broad-based disc bulge and mild facet arthropathy without spinal stenosis or foraminal narrowing. L3-L4: There is mild loss of disc height and circumferential broad-based disc bulge with bilateral foraminal extrusion and mild facet arthropathy. There is minimal narrowing of left greater than right subarticular zones. There is borderline spinal stenosis. There is mild foraminal narrowing, greater on the left. L4-L5: There is mild circumferential broad-based disc bulge and small left foraminal extrusion with annular fissuring. There is severe right and moderate left facet arthropathy. There is no spinal stenosis. There is minimal narrowing of the left subarticular zone. There is no spinal stenosis. There is mild to moderate bilateral foraminal narrowing. L5-S1: There is circumferential broad-based disc bulge and mild facet arthropathy, greater on right. There is no spinal stenosis. There is moderate bilateral foraminal narrowing. IMPRESSION: L3-L4: There is borderline spinal stenosis and mild lateral recess narrowing, greater on the left. L4-L5: There is mild to moderate bilateral foraminal narrowing. L5-S1: There is moderate bilateral foraminal narrowing. Assessment & Plan Assessment & Plan (1) Lumbar spondylosis: Code(s): M47.816 - Spondylosis without myelopathy or radiculopathy, lumbar region Category: Medical (2) Intractable back pain: Code(s): M54.9 - Dorsalgia, unspecified Category: Medical (3) Lumbar facet arthropathy: Code(s): M47.816 - Spondylosis without myelopathy or radiculopathy, lumbar region Category: Medical (4) Chronic pain syndrome: Code(s): G89.4 - Chronic pain syndrome Category: Medical Plan Patient is suffering from nonradiating axial back pain consistent with lumbar facet arthropathy. The plan includes submitting a request to the insurance for bilateral sprint temporary peripheral nerve stimulator to manage the chronic axial back pain. This device aims to disrupt the pain signal from the back to the brain, potentially providing relief for up to nine months. If successful, the patient may consider a permanent device. The procedure involves two separate sessions, with each side being treated individually. The patient has been informed about the process, including the use of a temporary device for eight weeks. If the insurance requires, diagnostic injections may be repeated to document efficacy. Will schedule for fluoroscopy guided bilateral L4 sprint PNS with local anesthetic. Patient was informed and verbally consented to the use of an ambient scribe for clinic note documentation during this visit. Coding Level of Care Code Est Pt Level 3 (19707) Complex EM visit Add On G2211 Diagnoses Lumbar spondylosis M47.816 Intractable back pain M54.9 Lumbar facet arthropathy M47.816 Chronic pain syndrome G89.4
== END 2024-12-16 11:38 | disposition home or self-care (01) ==
LOC: HO.PMC 10:44
PROVIDERS: PCP Nurse Practitioner Family; Visit Provider Registered Nurse Emergency
DX: M47.816 Spondylosis without myelopathy or radiculopathy, lumbar region (principal); M54.9 Dorsalgia, unspecified; G89.4 Chronic pain syndrome
CPT/HCPCS: 99213; G2211

== ENCOUNTER → 2024-12-16 10:43 | Outpatient (BNVA) | payer MEDICARE, SELFPAY | PROVIDERS: PCP Nurse Practitioner Family; Visit Provider Registered Nurse Emergency | DX: M47.816 Spondylosis without myelopathy or radiculopathy, lumbar region (principal); M54.9 Dorsalgia, unspecified; G89.4 Chronic pain syndrome | CPT/HCPCS: 99212 ==

== ENCOUNTER 2025-01-11 12:54 | Outpatient (REF) | payer MEDICARE, SELFPAY ==
--- NOTE | ~2025-01-11 | MM_ITS ---
EXAMINATION: MM SCREENING DIGITAL BREAST TOMOSYNTHESIS, BILATERAL CLINICAL INFORMATION: Screening. Asymptomatic. COMPARISON: Mammography: Comparison is made with available priors TECHNIQUE: Digital breast mammography with tomosynthesis is performed in both the craniocaudal and mediolateral oblique views along with computer-aided detection (CAD). FINDINGS: The breasts are heterogeneously dense, which may obscure small masses (ACR BI-RADS breast composition Category c). There are no significant masses, abnormal calcifications, or other abnormalities. MM/MM tomosynthesis screening BI IMPRESSION: No mammographic evidence of malignancy. ASSESSMENT: BI-RADS BI-RADS 1 - Negative RECOMMENDATION: Routine annual mammography screening. 1 year F/U This examination should not preclude the clinical evaluation of a suspicious palpable abnormality. This patient's information was entered into a reminder system with a target due date for their next mammogram. Electronically signed by: Kimberley Garcia DO 01/12/2025 04:59 PM EDT
--- OUTSIDE RECORDS SUMMARY | 2025-01-11 13:44 | XMS_ITS | Encounter Summary ---
Author Organization [facility] Address [address] [place] [address] Phone Care Team Providers Care Machine Grinder Name Role Phone Unavailable Primary Care Provider Unavailabl e Encounter Details Date Type Department Care Team (Late st Contact Info) Description 09/13/2012 Legacy Encounter - Labs HISTORICAL CONVERSION [place] [phone], [place] [address] ProviderYoav MD [facility] [place] [address] Social History Tobacco Use Types Packs/Day Years [...]
--- OUTSIDE RECORDS SUMMARY | 2025-01-11 13:44 | XMS_ITS | Clinical Summary ---
Author Organization [facility] Address [address] [place] [address] Care Team Providers Care Doctor Of Naprapathic Medicine Name Role Phone Pcp, No Primary Care [...] 1977 DTaP/Tdap/Td Vaccines (1 - Tdap) 12/24/1983 Pneumococcal Vaccines 50+ (1 of 2 - PCV) 12/24/1983 Zoster (Shingles) Vaccine (1 of 2) 12/24/1983 Pap Smear (Ages 21-65) 1985 Mammogram 2004 Colonoscopy 2009 Influenza Vaccine 2024 02/26/2018, 03/16/2017, 02/20/2012 RSV Vaccine 60 years and older and Patients (1 - Risk 60-74 years 1-dose series) 2024 Hepatitis B Vaccines Aged Out No long er eligible based on patient's age to complete this topic Insurance [facility] MEDIC[facility] Care Teams Doctor Of Naprapathic Medicine Relationship Specialty Start Date End Date Pcp, No PCP - General General Medicine 05/27/24
--- OUTSIDE RECORDS SUMMARY | 2025-01-11 13:45 | XMS_ITS | Clinical Summary ---
Author Organization [facility] Address [address] [place] [address] Phone Care Team Providers Care Rod Buster Name Role Phone Unknown, Unknown Primary Care Provider Unavaangy lable Medications FLECTOR 1.3 % PT12 APPLY ONE PATCH TOPICALLY EVERY 12 HOURS DIRECTED 2 Active DULoxetine (CYMBALTA) 60 MG capsule Active [...] 10/14/2012 TSH LEVEL 01/30/2023 01/30/2022 COVID-19 VACCINE ( - 2023-2 5 season) 2024 RSV VACCINE (1 - 1-dose 75+ series) 12/24/2039 HEPATITIS C SCREENING Completed 01/30/2022 HEPATITIS A [...] file Insurance MEDICARE PART A & B MEDICARE REPLACEMENT MEDICARE PART A & B Member Subscriber Plan / Payer (Ef fective 2020-Present) Name:Fabiana Fraser Member ID:[id number] Relation to Subscriber:Self Name:Fabiana Fraser Subscriber ID:[id number] Payer ID:[id number] Group ID:Not on file Type:Medicare Address: [employer] [address] MEDICARE REPLACEMENT MEDICARE PART A & B MEDICARE REPLACEMENT MEDICARE PART A & B MEDICARE REPLACEMENT MEDICARE PART A & B [facility] MEDICARE REPLACEMENT MEDICARE PART A & B [facility] MEDICARE REPLACEMENT MEDICARE PART A & B Member Subscriber Plan / Payer (Ef fective 2020-Present) Name:Fabiana Fraser Member ID:[id number] Relation to Subscriber:Self Name:Fabiana Fraser Subscriber ID:[id number] Payer ID:[id number] Group ID:Not on file Type:Medicare Address: [facility] [address] [place] [address] [place] [address] MEDICARE REPLACEMENT MEDICARE PART A & B MEDICARE REPLACEMENT [place] [id number] MEDICARE PART A & B MEDICARE REPLACEMENT Care Teams Rod Buster Relationship Specialty Start Date End Date Unknown, Unknown, PCP - General 12/10/21 Additional Source Comments The information contained in this document represents components of the legal health record. It is not the complete legal health record.[facility]
== END 2025-01-11 12:55 | disposition home or self-care (01) ==
LOC: HO.MAMMO 12:54
PROVIDERS: PCP Nurse Practitioner Family; Visit Provider Nurse Practitioner Family
DX: Z12.31 Encounter for screening mammogram for malignant neoplasm of breast (principal)
CPT/HCPCS: 77063; 77067; 99212

== ENCOUNTER → 2025-01-11 13:00 | Outpatient (BNV) | payer MEDICARE, SELFPAY | PROVIDERS: PCP Nurse Practitioner Family; Visit Provider Internal Medicine | DX: Z12.31 Encounter for screening mammogram for malignant neoplasm of breast (principal) | CPT/HCPCS: 77063; 77067 ==

== ENCOUNTER 2025-01-11 13:41 | Outpatient (AMB) | payer MEDICARE, SELFPAY ==
[2025-01-11 13:50] VITALS: BP 122/80; PULSE 72; O2SAT 98; BMI 31.9
--- NOTE | 2025-01-11 13:50 | MHC.OFFVIS ---
Vital Signs 01/11/25 13:50 Height 5 ft 5 in Weight 192 lb BMI 31.9 BP 122/80 Pulse 72 Pulse Oximetry (%) 98 Intake Visit Reasons: MAT Allergies sulfa Allergy (Mild, Uncoded 01/11/25 13:51) Hives Medication List - Last Reconciled 01/11/25 by Doris Ulrich NP-C buprenorphine-naloxone 2-0.5 mg (Suboxone) 1 film sublingual TID cholecalciferol (vitamin D3) (Vitamin D3) 125 mcg PO DAILY 90 days cyanocobalamin (vitamin B-12) (Vitamin B-12) 2,500 mcg sublingual DAILY 30 days diclofenac epolamine 1.3% (Flector) 1 patch transdermal .qd 30 days duloxetine (Cymbalta) 60 mg PO DAILY 30 days ferrous sulfate 325 mg PO DAILY 30 days gabapentin 300 mg PO TID 30 days hydroxychloroquine (Plaquenil) 200 mg PO DAILY levothyroxine 150 mcg PO DAILY 30 days lidocaine 5% 2 patches topical DAILY meloxicam 7.5 mg PO BID metoprolol succinate ER 12.5 mg PO DAILY omeprazole 20 mg PO DAILY 90 days tizanidine 2 mg PO Q8H PRN 30 days trazodone 150 mg PO BEDTIME PRN HPI Comments Details: A 59-year-old female presents for a follow-up visit r/t GABE in remission with buprenorphine-naloxone 2-0.5 mg TID. Denies use of opioids, alcohol, or other substances. Reports will be undergoing neuromodulation for lumbar pain. [facility] Medical History (Updated 01/11/25 @ 14:15 by MAREK Gayle) Opioid use disorder Osteoporosis [facility] current use of immunosuppressive drug Chronic low back pain Discoid lupus Thyroid disease Raynaud disease Neuropathy Arthritis Anemia Philipp thyroiditis, fibrous variant Polyarticular arthritis Hypertension Osteopenia of both ankles Surgical History History of ankle surgery History of tonsillectomy History of knee replacement Family History Paternal Grandfather Rheumatoid arthritis Lupus Father ALS (amyotrophic lateral sclerosis) Mother Macular degeneration Social History Household Members: None Housing: Apartment Alcohol intake: never Patient Tobacco Use Status: Never used Tobacco e-Cigarette/Vaping Use: Never Used Second Hand Smoke Exposure: No service: No Current occupational status: disabled Cognitive needs: No Hearing needs: No Vision needs: No Review of Systems Const All systems reviewed & are unremarkable except as noted in HPI and below Physical Exam Vital Signs: Last Vital Signs Pulse 72 01/11/25 13:50 BP 122/80 01/11/25 13:50 Pulse Ox 98 01/11/25 13:50 BMI result Body Mass Index 31.9 Assessment & Plan Assessment & Plan (1) Opioid use disorder in remission: Code(s): F11.91 - Opioid use, unspecified, in remission Category: Medical Plan The plan of care is to continue with buprenorphine-naloxone 2-0.5 mg TID and follow up in three months via telehealth visit. Medications: Changed From buprenorphine-naloxone 2-0.5 mg (Suboxone) 1 film sublingual TID 90 ea 1RF To buprenorphine-naloxone 2-0.5 mg (Suboxone) One film sublingual three times per day. 1 film sublingual TID 90 ea 2RF Refilled buprenorphine-naloxone 2-0.5 mg (Suboxone) 1 film sublingual TID 90 ea 1RF Patient Instructions: - Continue with buprenorphine-naloxone as prescribed. - Follow-up in 3 months or sooner if needed. - Call with questions, concerns, or to report side effects/new onset of symptoms to [facility]. - The patient verbalized understanding and agreed with plan of care. Coding Level of Care Code Est Pt Level 3 (74090) Diagnoses Opioid use disorder in remission F11.91
== END 2025-01-11 14:00 | disposition home or self-care (01) ==
PROVIDERS: PCP Nurse Practitioner Family; Visit Provider Clinical Nurse Specialist Psychiatric/Mental Health
DX: F11.91 Opioid use, unspecified, in remission (principal)
CPT/HCPCS: 99213

== ENCOUNTER 2025-01-19 15:43 | Outpatient (REF) | payer MEDICARE, SELFPAY ==
--- OUTSIDE RECORDS SUMMARY | 2025-01-19 16:03 | XMS_ITS | Encounter Summary ---
Author Organization [facility] Address [address] [place] [address] Phone Care Team Providers Care Pipe Stripper Name Role Phone Unavailable Primary Care Provider Unavailabl e Encounter Details Date Type Department Care Team (Late st Contact Info) Description 11/01/2013 Abstract HISTORICAL CONVERSION [place] [phone] ProviderYoav MD [facility] [place] [phone] Social History Tobacco Use Types Packs/Day Years [...]
--- OUTSIDE RECORDS SUMMARY | 2025-01-19 16:03 | XMS_ITS | Encounter Summary ---
Author Organization [facility] Address [address] [place] [address] Phone Care Team Providers Care Rolled Gold Plater Name Role Phone Unavailable Primary Care Provider Unavailabl e Encounter Details Date Type Department Care Team (Late st Contact Info) Description 09/13/2012 Legacy Encounter - Labs HISTORICAL CONVERSION [place] [phone], [place] [address] ProviderYoav MD [facility] [place] [address] Social History Tobacco Use Types Packs/Day Years [...]
--- OUTSIDE RECORDS SUMMARY | 2025-01-19 16:03 | XMS_ITS | Encounter Summary ---
Author Organization [facility] Address [address] [place] [address] Phone Care Team Providers Care Hotel Or Motel Room Service Supervisor Name Role Phone Unavailable Primary Care Provider Unavailabl e Encounter Details Date Type Department Care Team (Late st Contact Info) Description 06/06/2013 Abstract HISTORICAL CONVERSION [place] [phone] ProviderYoav MD [facility] [place] [phone] Social History Tobacco Use Types Packs/Day Years [...]
--- OUTSIDE RECORDS SUMMARY | 2025-01-19 16:03 | XMS_ITS | Encounter Summary ---
Author Organization [facility] Address [address] [place] [address] Phone Care Team Providers Care Electronic Communications Technician Name Role Phone Unavailable Primary Care Provider Unavailabl e Encounter Details Date Type Department Care Team (Late st Contact Info) Description 06/29/2012 Legacy Encounter - Labs HISTORICAL CONVERSION [place] [phone], [place] [address] ProviderYoav MD [facility] [place] [phone] Social History Tobacco Use Types Packs/Day Years [...] LAB RESULT SCAN PROCEDURE 06/29/2012 12:00 AM DOPE WORKER documented in this encounter Results * DPS CONVERSION - LAB RESULT SCAN PROCEDURE (06/29/2012 12:00 AM DOPE WORKER) Narrative 06/29/2012 12:00 AM DOPE WORKER Ordered by an unspecified provider. us Historical Provider LAB BLOOD ORDERABLES Day l Result documented in this encounter Visit Diagnoses Not on filedocumented in this encounter
--- OUTSIDE RECORDS SUMMARY | 2025-01-19 16:03 | XMS_ITS | Encounter Summary ---
Author Organization [facility] Address [address] [place] [address] Phone Care Team Providers Care Contract Writer Name Role Phone Unavailable Primary Care Provider Unavailabl e Encounter Details Date Type Department Care Team (Late st Contact Info) Description 12/24/2012 Legacy Encounter - Labs HISTORICAL CONVERSION [place] [address], [place] [address] ProviderYoav MD [facility] [place] [phone] Social History Tobacco Use Types Packs/Day Years [...]
--- OUTSIDE RECORDS SUMMARY | 2025-01-19 16:03 | XMS_ITS | Encounter Summary ---
Author Organization [facility] Address [address] [place] [address] Phone Care Team Providers Care Charger Tester Name Role Phone Unavailable Primary Care Provider Unavailabl e Encounter Details Date Type Department Care Team (Late st Contact Info) Description 08/07/2012 Legacy Encounter - Labs HISTORICAL CONVERSION [place] [address], [place] [address] ProviderYoav MD [facility] [place] [phone] Social History Tobacco Use Types Packs/Day Years [...]
--- OUTSIDE RECORDS SUMMARY | 2025-01-19 16:03 | XMS_ITS | Encounter Summary ---
Author Organization [facility] Address [address] [place] [address] Phone Care Team Providers Care Causticiser Name Role Phone Unavailable Primary Care Provider Unavailabl e Encounter Details Date Type Department Care Team (Late st Contact Info) Description 09/01/2012 Legacy Encounter - Labs HISTORICAL CONVERSION [place] [address], [place] [address] ProviderYoav MD [facility] [place] [address] Social History Tobacco Use Types Packs/Day Years [...]
--- OUTSIDE RECORDS SUMMARY | 2025-01-19 16:03 | XMS_ITS | Encounter Summary ---
Author Organization [facility] Address [address] [place] [address] Phone Care Team Providers Care Rn Urology Name Role Phone Unavailable Primary Care Provider Unavailabl e Encounter Details Date Type Department Care Team (Late st Contact Info) Description 10/22/2012 Legacy Encounter - Labs HISTORICAL CONVERSION [place] [address], [place] [address] ProviderYoav MD [facility] [place]enn[place] [phone] Social History Tobacco Use Types Packs/Day Years [...]
--- OUTSIDE RECORDS SUMMARY | 2025-01-19 16:03 | XMS_ITS | Encounter Summary ---
Author Organization [facility] Address [address] [place] [address] Phone Care Team Providers Care Assistant Manager Name Role Phone Unavailable Primary Care Provider Unavailabl e Encounter Details Date Type Department Care Team (Late st Contact Info) Description 01/20/2013 Legacy Encounter - Labs HISTORICAL CONVERSION [place] [address], [place] [address] ProviderYoav MD [facility] [place]Angela [place] [phone] Social History Tobacco Use Types Packs/Day Years [...]
--- OUTSIDE RECORDS SUMMARY | 2025-01-19 16:04 | XMS_ITS | Encounter Summary ---
Author Organization [facility] Address [address] [place] [address] Phone Care Team Providers Care Knitter Operator Name Role Phone Unavailable Primary Care Provider Unavailabl e Encounter Details Date Type Department Care Team (Late st Contact Info) Description 01/30/2006 Legacy Encounter - Labs HISTORICAL CONVERSION [place] [address], [place] [address] ProviderYoav MD [facility] [place] [phone] Social History Tobacco Use Types Packs/Day Years [...]
--- OUTSIDE RECORDS SUMMARY | 2025-01-19 16:04 | XMS_ITS | Encounter Summary ---
Author Organization [facility] Address [address] [place] [address] Phone Care Team Providers Care Business Machine Mechanic Name Role Phone Unavailable Primary Care Provider Unavailabl e Encounter Details Date Type Department Care Team (Late st Contact Info) Description 11/19/2009 Legacy Encounter - Labs HISTORICAL CONVERSION [place] [address], [place] [address] ProviderYoav MD [facility] [place] [phone] Social History Tobacco Use Types Packs/Day Years [...]
--- OUTSIDE RECORDS SUMMARY | 2025-01-19 16:04 | XMS_ITS | Encounter Summary ---
Author Organization [facility] Address [address] [place] [address] Phone Care Team Providers Care Safety Analyst Name Role Phone Unavailable Primary Care Provider Unavailabl e Encounter Details Date Type Department Care Team (Late st Contact Info) Description 07/06/2009 Abstract HISTORICAL CONVERSION [place] [phone] ProviderYoav MD [facility] [place] [phone] Social History Tobacco Use Types Packs/Day Years [...]
--- OUTSIDE RECORDS SUMMARY | 2025-01-19 16:04 | XMS_ITS | Encounter Summary ---
Author Organization [facility] Address [address] [place] [address] Phone Care Team Providers Care Apron Trimmer Name Role Phone Unavailable Primary Care Provider Unavailabl e Encounter Details Date Type Department Care Team (Late st Contact Info) Description 09/12/2010 Legacy Encounter - Labs HISTORICAL CONVERSION [place] [address], [place] [address] ProviderYoav MD [facility] [place] [address] Social History Tobacco Use Types Packs/Day Years [...]
--- OUTSIDE RECORDS SUMMARY | 2025-01-19 16:04 | XMS_ITS | Encounter Summary ---
Author Organization [facility] Address [address] [place] [address] Phone Care Team Providers Care Tandem Mill Roller Name Role Phone Unavailable Primary Care Provider Unavailabl e Encounter Details Date Type Department Care Team (Late st Contact Info) Description 03/23/2014 Legacy Encounter - Labs HISTORICAL CONVERSION [place] [address], [place] [address] ProviderYoav MD [facility] [place]Roy [place] [phone] Social History Tobacco Use Types Packs/Day Years [...]
--- OUTSIDE RECORDS SUMMARY | 2025-01-19 16:04 | XMS_ITS | Encounter Summary ---
Author Organization [facility] Address [address] [place] [address] Phone Care Team Providers Care Night Baker Name Role Phone Unavailable Primary Care Provider Unavailabl e Encounter Details Date Type Department Care Team (Late st Contact Info) Description 04/29/2006 Legacy Encounter - Labs HISTORICAL CONVERSION [place] [address], [place] [address] ProviderYoav MD [facility] [place] [address] Social History Tobacco Use Types Packs/Day Years [...] LAB RESULT SCAN PROCEDURE 04/29/2006 12:00 AM SWAGER OPERATOR DPS CONVERSION - LAB RESULT SCAN PROCEDURE 04/29/2006 12:00 AM SWAGER OPERATOR DPS CONVERSION - LAB RESULT SCAN PROCEDURE 04/29/2006 12:00 AM SWAGER OPERATOR documented in this encounter Results * DPS CONVERSION - LAB RESULT SCAN PROCEDURE (04/29/2006 12:00 AM SWAGER OPERATOR) Narrative 04/29/2006 12:00 AM SWAGER OPERATOR Ordered by an unspecified provider. us Historical Provider LAB BLOOD ORDERABLES Day l Result * DPS CONVERSION - LAB RESULT SCAN PROCEDURE (04/29/2006 12:00 AM SWAGER OPERATOR) Narrative 04/29/2006 12:00 AM SWAGER OPERATOR Ordered by an unspecified provider. us Historical Provider LAB BLOOD ORDERABLES Day l Result * DPS CONVERSION - LAB RESULT SCAN PROCEDURE (04/29/2006 12:00 AM SWAGER OPERATOR) Narrative 04/29/2006 12:00 AM SWAGER OPERATOR Ordered by an unspecified provider. us Historical Provider LAB BLOOD ORDERABLES Day l Result documented in this encounter Visit Diagnoses Not on filedocumented in this encounter
--- OUTSIDE RECORDS SUMMARY | 2025-01-19 16:04 | XMS_ITS | Encounter Summary ---
Author Organization [facility] Address [address] [place] [address] Phone Care Team Providers Care Rn Radiation Name Role Phone Unavailable Primary Care Provider Unavailabl e Encounter Details Date Type Department Care Team (Late st Contact Info) Description 10/23/2009 Legacy Encounter - Labs HISTORICAL CONVERSION [place] [address], [place] [address] ProviderYoav MD [facility] [place]Scott [place] [phone] Social History Tobacco Use Types Packs/Day Years [...]
--- OUTSIDE RECORDS SUMMARY | 2025-01-19 16:04 | XMS_ITS | Clinical Summary ---
Author Organization [facility] Address [address] [place] [address] Phone Care Team Providers Care Sheet Metal Pattern Cutter Name Role Phone Unknown, Unknown Primary Care [...] Payer (Ef fective 2020-Present) Name:Fabiana Fraser Member ID:[id number] Relation to Subscriber:Self Name:Fabiana Fraser Subscriber ID:[id number] Payer ID:[id number] Group ID:Not on file Type:Medicare Address: [employer] [address] MEDICARE REPLACEMENT MEDICARE PART A & B MEDICARE REPLACEMENT MEDICARE PART A & B MEDICARE REPLACEMENT MEDICARE PART A & B [facility] MEDICARE REPLACEMENT MEDICARE PART A & B [facility] MEDICARE REPLACEMENT MEDICARE PART A & B Member Subscriber Plan / Payer (Ef fective 2020-Present) Name:Fabiana Fraser Member ID:[id number] Relation to Subscriber:Self Name:Fabiana Fraser Subscriber ID:[id number] Payer ID:[id number] Group ID:Not on file Type:Medicare Address: [facility] [address] [place] [address] [place] [address] MEDICARE REPLACEMENT MEDICARE PART A & B MEDICARE REPLACEMENT [place] [id number] MEDICARE PART A & B MEDICARE REPLACEMENT Care Teams Sheet Metal Pattern Cutter Relationship Specialty Start Date End Date Unknown, Unknown, PCP - General 12/10/21 Additional Source Comments The information contained in this document represents components of the legal health record. It is not the complete legal health record.[facility]
--- OUTSIDE RECORDS SUMMARY | 2025-01-19 16:04 | XMS_ITS | Encounter Summary ---
Author Organization [facility] Address [address] [place] [address] Phone Care Team Providers Care City Tax Auditor Name Role Phone Unavailable Primary Care Provider Unavailabl e Encounter Details Date Type Department Care Team (Late st Contact Info) Description 01/18/2014 Legacy Encounter - Labs HISTORICAL CONVERSION [place] [address], [place] [address] ProviderYoav MD [facility] [place] [phone] Social History Tobacco Use Types Packs/Day Years [...]
--- OUTSIDE RECORDS SUMMARY | 2025-01-19 16:04 | XMS_ITS | Encounter Summary ---
Author Organization [facility] Address [address] [place] [address] Phone Care Team Providers Care Chief Risk Officer Name Role Phone Unavailable Primary Care Provider Unavailabl e Encounter Details Date Type Department Care Team (Late st Contact Info) Description 06/11/2011 Legacy Encounter - Labs HISTORICAL CONVERSION [place] [address], [place] [address] ProviderYoav MD [facility] [place] [phone] Social History Tobacco Use Types Packs/Day Years [...] LAB RESULT SCAN PROCEDURE 06/11/2011 12:00 AM RATING SPECIALIST documented in this encounter Results * DPS CONVERSION - LAB RESULT SCAN PROCEDURE (06/11/2011 12:00 AM RATING SPECIALIST) Narrative 06/11/2011 12:00 AM RATING SPECIALIST Ordered by an unspecified provider. us Historical Provider LAB BLOOD ORDERABLES Day l Result documented in this encounter Visit Diagnoses Not on filedocumented in this encounter
--- OUTSIDE RECORDS SUMMARY | 2025-01-19 16:04 | XMS_ITS | Encounter Summary ---
Author Organization [facility] Address [address] [place] [address] Phone Care Team Providers Care Senior Manufacturing Test Engineer Name Role Phone Unavailable Primary Care Provider Unavailabl e Encounter Details Date Type Department Care Team (Late st Contact Info) Description 05/04/2006 Legacy Encounter - Labs HISTORICAL CONVERSION [place] [address], [place] [address] ProviderYoav MD [facility] [place]Jac[place] [phone] Social History Tobacco Use Types Packs/Day Years [...] LAB RESULT SCAN PROCEDURE 05/04/2006 12:00 AM LIVESTOCK JUDGING COACH documented in this encounter Results * DPS CONVERSION - LAB RESULT SCAN PROCEDURE (05/04/2006 12:00 AM LIVESTOCK JUDGING COACH) Narrative 05/04/2006 12:00 AM LIVESTOCK JUDGING COACH Ordered by an unspecified provider. us Historical Provider LAB BLOOD ORDERABLES Day l Result documented in this encounter Visit Diagnoses Not on filedocumented in this encounter
--- OUTSIDE RECORDS SUMMARY | 2025-01-19 16:04 | XMS_ITS | Encounter Summary ---
Author Organization [facility] Address [address] [place] [address] Phone Care Team Providers Care Tilt Tray Driver Name Role Phone Unavailable Primary Care Provider Unavailabl e Encounter Details Date Type Department Care Team (Late st Contact Info) Description 01/09/2014 Legacy Encounter - Labs HISTORICAL CONVERSION [place] [address], [place] [address] Provider[facility]av MD [facility] [place]Jessica [place] [phone] Social History Tobacco Use Types Packs/Day Years [...]
--- OUTSIDE RECORDS SUMMARY | 2025-01-19 16:04 | XMS_ITS | Encounter Summary ---
Author Organization [facility] Address [address] [place] [address] Phone Care Team Providers Care Garden Worker Name Role Phone Unavailable Primary Care Provider Unavailabl e Encounter Details Date Type Department Care Team (Late st Contact Info) Description 11/06/2006 Legacy Encounter - Labs HISTORICAL CONVERSION [place] [address], [place] [address] ProviderYoav MD [place] [address] Social History Tobacco Use Types Packs/Day Years [...] AM CDT Ordered by an unspecified provider. [facility] Provider LAB BLOOD ORDERABLES Day l Result * DPS CONVERSION - LAB RESULT SCAN PROCEDURE (11/06/2006 12:00 AM CDT) Narrative 11/06/2006 12:00 AM CDT Ordered by an unspecified provider. [facility] Provider LAB BLOOD ORDERABLES Day l Result * DPS CONVERSION - LAB RESULT SCAN PROCEDURE (11/06/2006 12:00 AM CDT) Narrative 11/06/2006 12:00 AM CDT Ordered by an unspecified provider. [facility] Provider LAB BLOOD ORDERABLES Day l Result documented in this encounter Visit Diagnoses Not on filedocumented in this encounter
--- OUTSIDE RECORDS SUMMARY | 2025-01-19 16:04 | XMS_ITS | Encounter Summary ---
Author Organization [facility] Address [address] [place] [address] Phone Care Team Providers Care Lathe Sander Name Role Phone Unavailable Primary Care Provider Unavailabl e Encounter Details Date Type Department Care Team (Late st Contact Info) Description 06/18/2009 Legacy Encounter - Labs HISTORICAL CONVERSION [place] [address], [place] [address] ProviderYoav MD [facility] [place]Christ[place] [phone] Social History Tobacco Use Types Packs/Day Years [...] LAB RESULT SCAN PROCEDURE 06/18/2009 12:00 AM SUPERVISOR SCREEN MAKING documented in this encounter Results * DPS CONVERSION - LAB RESULT SCAN PROCEDURE (06/18/2009 12:00 AM SUPERVISOR SCREEN MAKING) Narrative 06/18/2009 12:00 AM SUPERVISOR SCREEN MAKING Ordered by an unspecified provider. us Historical Provider LAB BLOOD ORDERABLES Day l Result documented in this encounter Visit Diagnoses Not on filedocumented in this encounter
--- OUTSIDE RECORDS SUMMARY | 2025-01-19 16:04 | XMS_ITS | Encounter Summary ---
Author Organization [facility] Address [address] [place] [address] Phone Care Team Providers Care Cad Application Support Specialist Name Role Phone Unavailable Primary Care Provider Unavailabl e Encounter Details Date Type Department Care Team (Late st Contact Info) Description 09/18/2008 Legacy Encounter - Labs HISTORICAL CONVERSION [place] [address], [place] [address] ProviderYoav MD [facility] [place]Rachel [place] [phone] Social History Tobacco Use Types Packs/Day Years [...]
--- OUTSIDE RECORDS SUMMARY | 2025-01-19 16:04 | XMS_ITS | Encounter Summary ---
Author Organization [facility] Address [address] [place] [address] Phone Care Team Providers Care Help Aid Name Role Phone Unavailable Primary Care Provider Unavailabl e Encounter Details Date Type Department Care Team (Late st Contact Info) Description 08/18/2015 Legacy Encounter - Labs HISTORICAL CONVERSION [place] [address], [place] [address] ProviderYoav MD [facility] AnyPatrick [place] [phone] Social History Tobacco Use Types Packs/Day Years [...]
--- OUTSIDE RECORDS SUMMARY | 2025-01-19 16:04 | XMS_ITS | Encounter Summary ---
Author Organization [facility] Address [address] [place] [address] Phone Care Team Providers Care Commercial Development Manager Name Role Phone Unavailable Primary Care Provider Unavailabl e Encounter Details Date Type Department Care Team (Late st Contact Info) Description 10/29/2013 Legacy Encounter - Labs HISTORICAL CONVERSION [place] [address], [place] [address] ProviderYoav MD [facility] [place]Justin [place] [phone] Social History Tobacco Use Types Packs/Day Years [...]
--- OUTSIDE RECORDS SUMMARY | 2025-01-19 16:04 | XMS_ITS | Encounter Summary ---
Author Organization [facility] Address [address] [place] [address] Phone Care Team Providers Care Chimney Mechanic Name Role Phone Unavailable Primary Care Provider Unavailabl e Encounter Details Date Type Department Care Team (Late st Contact Info) Description 02/13/2014 Legacy Encounter - Labs HISTORICAL CONVERSION [place] [address], [place] [address] ProviderYoav MD [facility] [place]Ch[place] [phone] Social History Tobacco Use Types Packs/Day Years [...]
--- OUTSIDE RECORDS SUMMARY | 2025-01-19 16:04 | XMS_ITS | Encounter Summary ---
Author Organization [facility] Address [address] [place] [address] Phone Care Team Providers Care Multi Line Claims Adjuster Name Role Phone Unavailable Primary Care Provider Unavailabl e Encounter Details Date Type Department Care Team (Late st Contact Info) Description 03/27/2015 Clinical Support HISTORICAL [id number] [address] ProviderYoav MD [facility] [place]Sheryl [place] [phone] Social History Tobacco Use Types Packs/Day Years [...]
--- OUTSIDE RECORDS SUMMARY | 2025-01-19 16:04 | XMS_ITS | Encounter Summary ---
Author Organization [facility] Address [address] [place] [address] Phone Care Team Providers Care Mixing Roll Operator Name Role Phone Unavailable Primary Care Provider Unavailabl e Encounter Details Date Type Department Care Team (Late st Contact Info) Description 07/28/2006 Legacy Encounter - Labs HISTORICAL CONVERSION [place] [address], [place] [address] ProviderYoav MD [address] [place] [address] Social History Tobacco Use Types Packs/Day Years [...] LAB RESULT SCAN PROCEDURE 07/28/2006 12:00 AM BUSINESS SUPPORT ADMINISTRATOR DPS CONVERSION - LAB RESULT SCAN PROCEDURE 07/28/2006 12:00 AM BUSINESS SUPPORT ADMINISTRATOR documented in this encounter Results * DPS CONVERSION - LAB RESULT SCAN PROCEDURE (07/28/2006 12:00 AM BUSINESS SUPPORT ADMINISTRATOR) Narrative 07/28/2006 12:00 AM BUSINESS SUPPORT ADMINISTRATOR Ordered by an unspecified provider. Historical Provider LAB BLOOD ORDERABLES Day l Result * DPS CONVERSION - LAB RESULT SCAN PROCEDURE (07/28/2006 12:00 AM BUSINESS SUPPORT ADMINISTRATOR) Narrative 07/28/2006 12:00 AM BUSINESS SUPPORT ADMINISTRATOR Ordered by an unspecified provider. Historical Provider LAB BLOOD ORDERABLES Day l Result documented in this encounter Visit Diagnoses Not on filedocumented in this encounter
--- OUTSIDE RECORDS SUMMARY | 2025-01-19 16:04 | XMS_ITS | Encounter Summary ---
Author Organization [facility] Address [address] [place] [address] Phone Care Team Providers Care Social Work Instructor Name Role Phone Unavailable Primary Care Provider Unavailabl e Encounter Details Date Type Department Care Team (Late st Contact Info) Description 08/28/2006 Legacy Encounter - Labs HISTORICAL CONVERSION [place] [address], [place] [address] ProviderYoav MD [facility] [place]Amy [place] [phone] Social History Tobacco Use Types Packs/Day Years [...]
--- OUTSIDE RECORDS SUMMARY | 2025-01-19 16:04 | XMS_ITS | Encounter Summary ---
Author Organization [facility] Address [address] [place] [address] Phone Care Team Providers Care Marketing Area Manager Name Role Phone Unavailable Primary Care Provider Unavailabl e Encounter Details Date Type Department Care Team (Late st Contact Info) Description 11/20/2005 Legacy Encounter - Labs HISTORICAL CONVERSION [place] [address], [place] [address] ProviderYoav MD [facility] [place]Laura [place] [phone] Social History Tobacco Use Types Packs/Day Years [...]
--- OUTSIDE RECORDS SUMMARY | 2025-01-19 16:04 | XMS_ITS | Encounter Summary ---
Author Organization [facility] Address [address] [place] [address] Phone Care Team Providers Care Night Shift Name Role Phone Unavailable Primary Care Provider Unavailabl e Encounter Details Date Type Department Care Team (Late st Contact Info) Description 08/17/2015 Legacy Encounter - Labs HISTORICAL CONVERSION [place] [address], [place] [address] ProviderYoav MD [facility] [place]Lauren [place] [phone] Social History Tobacco Use Types Packs/Day Years [...]
--- OUTSIDE RECORDS SUMMARY | 2025-01-19 16:04 | XMS_ITS | Encounter Summary ---
Author Organization [facility] Address [address] [place] [address] Phone Care Team Providers Care Radiographic Technologist Name Role Phone Unavailable Primary Care Provider Unavailabl e Encounter Details Date Type Department Care Team (Late st Contact Info) Description 03/13/2015 Legacy Encounter - Labs HISTORICAL CONVERSION [place] [address], [place] [address] ProviderYoav MD [facility] AnyGregory [place] [phone] Social History Tobacco Use Types Packs/Day Years [...]
--- OUTSIDE RECORDS SUMMARY | 2025-01-19 16:04 | XMS_ITS | Encounter Summary ---
Author Organization [facility] Address [address] [place] [address] Phone Care Team Providers Care Museum Informatics Specialist Name Role Phone Unavailable Primary Care Provider Unavailabl e Encounter Details Date Type Department Care Team (Late st Contact Info) Description 07/15/2011 Legacy Encounter - Labs HISTORICAL CONVERSION [place] [address], [place] [address] ProviderYoav MD [facility] [place]Ashley [place] [phone] Social History Tobacco Use Types Packs/Day Years [...] LAB RESULT SCAN PROCEDURE 07/15/2011 12:00 AM PUBLIC TRANSIT BUS DRIVER documented in this encounter Results * DPS CONVERSION - LAB RESULT SCAN PROCEDURE (07/15/2011 12:00 AM PUBLIC TRANSIT BUS DRIVER) Narrative 07/15/2011 12:00 AM PUBLIC TRANSIT BUS DRIVER Ordered by an unspecified provider. us Historical Provider LAB BLOOD ORDERABLES Day l Result documented in this encounter Visit Diagnoses Not on filedocumented in this encounter
--- OUTSIDE RECORDS SUMMARY | 2025-01-19 16:04 | XMS_ITS | Encounter Summary ---
Author Organization [facility] Address [address] [place] [address] Phone Care Team Providers Care Roll Cutting Operator Name Role Phone Unavailable Primary Care Provider Unavailabl e Encounter Details Date Type Department Care Team (Late st Contact Info) Description 06/14/2012 Legacy Encounter - Labs HISTORICAL CONVERSION [place] [address], [place] [address] ProviderYoav MD [facility] [place]Derek [place] [phone] Social History Tobacco Use Types Packs/Day Years [...] LAB RESULT SCAN PROCEDURE 06/14/2012 12:00 AM FISH FARM LABORER documented in this encounter Results * DPS CONVERSION - LAB RESULT SCAN PROCEDURE (06/14/2012 12:00 AM FISH FARM LABORER) Narrative 06/14/2012 12:00 AM FISH FARM LABORER Ordered by an unspecified provider. us Historical Provider LAB BLOOD ORDERABLES Day l Result documented in this encounter Visit Diagnoses Not on filedocumented in this encounter
--- OUTSIDE RECORDS SUMMARY | 2025-01-19 16:04 | XMS_ITS | Clinical Summary ---
Author Organization [facility] Address [address] [place] [phone] Phone Care Team Providers Care Implementation Specialist Name Role Phone Unavailable Primary Care [...] Active -Hx Entry 5 Active HYDROcodone-ac etaminophen (Purcell) 10-325 MG per tablet Purcell( 10-325MG Oral 1 as needed ) Active [...] Comments Blood Pressure 122/74 03/27/2015 12:01 AM FACILITIES MAINTENANCE TECHNICIAN Pulse 80 03/27/2015 12:01 AM FACILITIES MAINTENANCE TECHNICIAN Temperature - - Respiratory Rate - - Oxygen Saturation - - Inhaled Oxygen Concentration - - Weight 68.9 kg (152 lb) 03/27/2015 12:01 AM FACILITIES MAINTENANCE TECHNICIAN Height 162.6 cm (5' 4 ) 03/27/2015 12:01 AM FACILITIES MAINTENANCE TECHNICIAN Body Mass Index 26.09 03/27/2015 12:01 AM FACILITIES MAINTENANCE TECHNICIAN Plan of Treatment Not on file Insurance PM INTERFACED INSURANCE
--- OUTSIDE RECORDS SUMMARY | 2025-01-19 16:04 | XMS_ITS | Encounter Summary ---
Author Organization [facility] Address [address] [place] [address] Phone Care Team Providers Care Caretaker Grounds Name Role Phone Unavailable Primary Care Provider Unavailabl e Encounter Details Date Type Department Care Team (Late st Contact Info) Description 03/09/2014 Legacy Encounter - Labs HISTORICAL CONVERSION [place] [phone], [place] [address] ProviderYoav MD [facility] [place] [phone] Social History Tobacco Use Types Packs/Day Years [...]
--- OUTSIDE RECORDS SUMMARY | 2025-01-19 16:04 | XMS_ITS | Encounter Summary ---
Author Organization [facility]imiss[facility] Address [address] [place] [address] Phone Care Team Providers Care Methods Analyst Name Role Phone Unavailable Primary Care Provider Unavailabl e Encounter Details Date Type Department Care Team (Late st Contact Info) Description 03/29/2009 Legacy Encounter - Labs HISTORICAL CONVERSION [place] [phone], [place] [address] ProviderYoav MD [address] [place] [address] Social History Tobacco Use Types Packs/Day Years [...] LAB RESULT SCAN PROCEDURE 03/30/2009 12:00 AM CLERK OF SUPERIOR COURT DPS CONVERSION - LAB RESULT SCAN PROCEDURE 03/29/2009 12:00 AM CLERK OF SUPERIOR COURT documented in this encounter Results * DPS CONVERSION - LAB RESULT SCAN PROCEDURE (03/30/2009 12:00 AM CLERK OF SUPERIOR COURT) Narrative 03/30/2009 12:00 AM CLERK OF SUPERIOR COURT Ordered by an unspecified provider. Historical Provider LAB BLOOD ORDERABLES Day l Result * DPS CONVERSION - LAB RESULT SCAN PROCEDURE (03/29/2009 12:00 AM CLERK OF SUPERIOR COURT) Narrative 03/29/2009 12:00 AM CLERK OF SUPERIOR COURT Ordered by an unspecified provider. Historical Provider LAB BLOOD ORDERABLES Day l Result documented in this encounter Visit Diagnoses Not on filedocumented in this encounter
--- OUTSIDE RECORDS SUMMARY | 2025-01-19 16:04 | XMS_ITS | Encounter Summary ---
Author Organization [facility] Address [address] [place] [address] Phone Care Team Providers Care Yard Person Name Role Phone Unavailable Primary Care Provider Unavailabl e Encounter Details Date Type Department Care Team (Late st Contact Info) Description 03/01/2012 Legacy Encounter - Labs HISTORICAL CONVERSION [place] [phone], [place] [address] ProviderYoav MD [facility] [place] [phone] Social History Tobacco Use Types Packs/Day Years [...]
--- OUTSIDE RECORDS SUMMARY | 2025-01-19 16:04 | XMS_ITS | Encounter Summary ---
Author Organization [facility] Address [address] [place] [address] Phone Care Team Providers Care Spanish Speaking Babysitter Name Role Phone Unavailable Primary Care Provider Unavailabl e Encounter Details Date Type Department Care Team (Late st Contact Info) Description 10/28/2005 Legacy Encounter - Labs HISTORICAL CONVERSION [place] [phone], [place] [address] ProviderYoav MD [facility] [place] [address] Social History Tobacco Use Types Packs/Day Years [...]
--- OUTSIDE RECORDS SUMMARY | 2025-01-19 16:04 | XMS_ITS | Encounter Summary ---
Author Organization [facility] Address [address] [place] [address] Phone Care Team Providers Care Pen Maker Name Role Phone Unavailable Primary Care Provider Unavailabl e Encounter Details Date Type Department Care Team (Late st Contact Info) Description 10/05/2008 Legacy Encounter - Labs HISTORICAL CONVERSION [place] [phone], [place] [address] ProviderYoav MD [facility] [place] [phone] Social History Tobacco Use Types Packs/Day Years [...]
--- OUTSIDE RECORDS SUMMARY | 2025-01-19 16:04 | XMS_ITS | Encounter Summary ---
Author Organization [facility] Address [address] [place] [address] Phone Care Team Providers Care Metal Machine Operator Name Role Phone Unavailable Primary Care Provider Unavailabl e Encounter Details Date Type Department Care Team (Late st Contact Info) Description 03/28/2015 Abstract HISTORICAL CONVERSION [place] [phone] ProviderYoav MD [facility] [place] [phone] Social History Tobacco Use Types Packs/Day Years [...]
--- OUTSIDE RECORDS SUMMARY | 2025-01-19 16:04 | XMS_ITS | Encounter Summary ---
Author Organization [facility] Address [address] [place] [address] Phone Care Team Providers Care Surveyor Name Role Phone Unavailable Primary Care Provider Unavailabl e Encounter Details Date Type Department Care Team (Late st Contact Info) Description 01/27/2006 Abstract HISTORICAL CONVERSION [place] [phone] ProviderYoav MD [facility] [place] [phone] Social History Tobacco Use Types Packs/Day Years [...]
--- OUTSIDE RECORDS SUMMARY | 2025-01-19 16:04 | XMS_ITS | Encounter Summary ---
Author Organization [facility] Address [address] [place] [address] Phone Care Team Providers Care Numerical Control Machine Tool Operator Name Role Phone Unavailable Primary Care Provider Unavailabl e Encounter Details Date Type Department Care Team (Late st Contact Info) Description 03/26/2009 Abstract HISTORICAL CONVERSION [place] [id number] [address] ProviderYoav MD [facility] [place] [phone] Social History Tobacco Use Types Packs/Day Years [...]
[2025-01-19 17:38] LABS: MANUAL DIFF FLAG NO
[2025-01-19 17:42] LABS: Hematocrit 37.1 % (37.0-47.0); Hemoglobin 11.5 g/dl (12.0-16.0); Imm Gran Abs Auto 0.01 X10*3/uL (0.00-0.03); Imm Gran Pct Auto 0.3 % (0.0-0.4); Lymphocytes Absolute Auto 1.5 X10*3/uL (1.2-4.9); Mean Corpuscular HGB Conc 31.0 g/dl (31.0-35.0); Mean Corpuscular Hemoglobin 26.9 pg (27.0-33.0); Mean Corpuscular Volume 86.9 fL (80.0-98.0); NRBC Abs Auto 0.000 X10*3/uL (0.0-0.012); NRBC Pct Auto 0.0 /100WBC (0.0-0.2); Platelet Count 241 X10*3/uL (160-400); Red Blood Count 4.27 X10*6/uL (4.20-5.50); White Blood Count 4.0 X10*3/uL (4.8-10.8)
[2025-01-19 18:00] LABS: Alanine Aminotransferase 15 U/L (0-31); Albumin Level 4.1 g/dL (3.5-5.0); Alkaline Phosphatase 51 U/L (39-117); Anion Gap 12 (12-20); Aspartate Amino Transferase 25 U/L (5-31); Blood Urea Nitrogen 12 mg/dL (9-16); Calcium 8.7 mg/dL (8.4-10.2); Carbon Dioxide 28 mmol/L (22-29); Chloride 104 mmol/L (96-108); Estimated Glomerular Filt Rate > 60; Potassium 4.2 mmol/L (3.3-5.1); Sodium 140 mmol/L (135-145); Total Protein 6.9 g/dL (6.5-8.0)
[2025-01-19 18:30] LABS: Appearance Urine Clear; Glucose Urine UA Negative (Negative); PH 5.5 (5.0-9.0); Specific Gravity - Urine 1.025 (1.005-1.025)
[2025-01-19 18:53] LABS: Protein/Creatinine Ratio, Ur 0.06 (<0.2); Total Protein Urine Random 14 mg/dL (<12)
[2025-01-20 04:02] LABS: HBS Num1 0.57 mIU/mL (0-7.99); HBc Num1 0.07 S/CO (0.00-0.79); HBsAGNum1 0.50 S/CO (0.00-0.99); Hepatitis A Antibody IgM 0.26 Index (0-0.79); Hepatitis B Surface Antigen Negative (Negative); ~HepC Num1 0.31 S/CO (0.00-0.79); ~Hepatitis A Antibody IgM Nonreactive (Nonreactive); ~Hepatitis B Surface Antibody NONREACTIVE (Nonreactive); ~Hepatitis C Antibody Nonreactive (Nonreactive)
== END 2025-01-19 15:44 | disposition home or self-care (01) ==
LOC: HO.HKASLDS 15:43
PROVIDERS: Visit Provider Student in an Organized Health Care Education/Training Program
DX: M35.01 Sjogren syndrome with keratoconjunctivitis (principal); L40.50 Arthropathic psoriasis, unspecified; E55.9 Vitamin D deficiency, unspecified
CPT/HCPCS: 36415; 80053; 81001; 82306; 82570; 84156; 85025; 85652; 86140; 86160; 86431; 86704; 86706; 86709; 86803; 87340

== ENCOUNTER 2025-01-25 14:09 | Outpatient (AMB) | payer MEDICARE, SELFPAY ==
[2025-01-25 14:15] VITALS: BP 120/66; PULSE 72; O2SAT 95; BMI 31.3
--- NOTE | 2025-01-25 14:15 | A.OFFVIS_ITS ---
Vital Signs 01/25/25 14:15 Height 5 ft 5 in Weight 188 lb 4.396 oz BMI 31.3 BP 120/66 Blood Pressure Location Lt brachial Position Sitting Pulse 72 Pulse Source Pulse Oximeter Pulse Oximetry (%) 95 Oxygen Delivery Method Room Air Intake Visit Reasons: follow up Intake Note: Patient presents for follow up on PSA, labs and MRI results. Allergies sulfa Allergy (Mild, Uncoded 01/25/25 14:22) Hives Medication List - Last Reconciled 01/25/25 by Sweetie Adams MD buprenorphine-naloxone 2-0.5 mg (Suboxone) 1 film sublingual TID cholecalciferol (vitamin D3) (Vitamin D3) 125 mcg PO DAILY 90 days cyanocobalamin (vitamin B-12) (Vitamin B-12) 2,500 mcg sublingual DAILY 30 days diclofenac epolamine 1.3% (Flector) 1 patch transdermal .qd 30 days duloxetine (Cymbalta) 60 mg PO DAILY 30 days ferrous sulfate 325 mg PO DAILY 30 days gabapentin 300 mg PO TID 30 days hydroxychloroquine (Plaquenil) 200 mg PO DAILY levothyroxine 150 mcg PO DAILY 30 days lidocaine 5% 2 patches topical DAILY meloxicam 7.5 mg PO BID metoprolol succinate ER 12.5 mg PO DAILY omeprazole 20 mg PO DAILY 90 days tizanidine 2 mg PO Q8H PRN 30 days trazodone 150 mg PO BEDTIME PRN HPI Comments Details: Patient is a 59-year-old female with depression/anxiety, 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 - On Cosentyx infusions 200mg IV every 4 weeks and HCQ 200mg bid. Added Otezla 05/2024 - Did not tolerate Otezla, had significant diarrhea and so self discontinued medication - No further PsO patches and joints were stable Today, - On Cosentyx infusions 200mg IV every 4 weeks and HCQ 200mg bid - Doing well overall - Still with some PsO on her arms Rheumatologic History: Initial history: This is a 56-year-old female with a past medical history of psoriatic spondylitis, Sjogren's who presents as a new patient. She recently moved from [facility]. 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 Afterwards patient had multiple symptoms including dry eyes and dry mouth, Raynaud's and low back pain as well as peripheral arthritis. She was on multiple DMARDs for her arthritis including * Prednisone for about 10 years * Could not tolerate methotrexate * Humira was not effective * Hydroxychloroquine throughout * Remicade at 5 mgs/kg every 8 weeks started around 2015. Had stopped due her move and when it was restarted it was secondary non responsive. DC 12/14 ineffective. +ve infliximab antibody * Enbrel 01/14 DC 02/14 due to rash * Taltz 08/2023 * Unclear when Arava was started. But she only takes 10 mg twice a week, higher doses cause diarrhea * Otezla 05/2024. self discontinued due to diarrhea She was started on Remicade 3-4 years ago 5 mg/kg every 8 weeks with significant improvement in her overall symptoms especially her back pain. Patient's last dose of Remicade was in November of 2021. Patient states that feels significant worsening of her overall joint pain especially her back now that she has not received Remicade for 8 months. Continues to have dry eyes and dry mouth. Uses Restasis regularly. Uses Salagen twice daily for dry mouth without significant relief. Continues to use Biotene mouthwash and Biotene toothpaste. Osteoporosis: Bilateral ankle fracture while walking down the stairs. Around 10 years of chronic corticosteroid exposure DEXA 12/2018? L-spine T-score -1.2? Mean proximal fever -0.5? Mean femur neck -0.9 DEXA 06/2022 L-spine T-score -0.4 Left femur neck-0.5 Left femur total -0.5 Took alendronate for about 6 months stopped due to GI intolerance Needle phobic could not use Tymlos Took 9 out of 12 doses of Evenity, last dose 11/2021 Current Rheumatology Medication(s): Cosentyx 200mg IV infusion monthly Hydroxychloroquine 200mg bid [facility] Medical History Opioid use disorder Osteoporosis penitentiary current use of immunosuppressive drug Chronic low back pain Discoid lupus Thyroid disease Raynaud disease Neuropathy Arthritis Anemia Philipp thyroiditis, fibrous variant Polyarticular arthritis Hypertension Osteopenia of both ankles Surgical History History of ankle surgery History of tonsillectomy History of knee replacement Family History Paternal Grandfather Rheumatoid arthritis Lupus Father ALS (amyotrophic lateral sclerosis) Mother Macular degeneration Social History Household Members: None Housing: Apartment Alcohol intake: never Patient Tobacco Use Status: Never used Tobacco e-Cigarette/Vaping Use: Never Used Second Hand Smoke Exposure: No service: No Current occupational status: disabled Cognitive needs: No Hearing needs: No Vision needs: No Review of Systems Const Details: Review of Systems Constitutional: Denies fever, chills, weight loss ENT: Denies vision changes GI: Denies nausea, vomiting, diarrhea, abdominal pain, change in BM Pulm: Denies SOB, XAVIER, hemoptysis, wheezing Cards: Denies chest pain, palpitations Skin: Denies Raynaud's, nail changes, photosensitivity, FINANCIAL DIRECTOR: Denies headaches, weakness, paresthesias, recurrent falls MSK: as per HPI All other systems reviewed and are unremarkable except noted above Physical Exam Exam Exam: Vital signs reviewed Physical Examination CONSTITUITIONAL Patient alert and cooperative. Well appearing and in no apparent painful distress MSK Hands * Right Hand: Able to make a fist. No swelling or tenderness to palpation of the MCPs, PIPs or DIPs. * Left Hand: Able to make a fist. No swelling or tenderness to palpation of the MCPs, PIPs or DIPs. * Herbedens nodes noted bilaterally Wrists * Right Wrist: Full ROM to flexion and extension. No swelling or TTP * Left Wrist: Full ROM to flexion and extension. No swelling or TTP Elbows * Right Elbow: Full ROM. No swelling or TTP. No TTP of the medial epicondyle. No TTP of the lateral epicondyle * Left Elbow: Full ROM. No swelling or TTP. No TTP of the medial epicondyle. No TTP of the lateral epicondyle Shoulders * Right shoulder: Full ROM. No swelling noted. No TTP of the AC joint. No TTP of the subacromial bursa. No TTP of the posterior shoulder * Left shoulder: Full ROM. No swelling noted. No TTP of the AC joint. No TTP of the subacromial bursa. No TTP of the posterior shoulder Knees * Right knee: Full ROM. No swelling noted. No TTP of the knee joint line. No TTP of pes anserine bursa * Left knee: Full ROM. No swelling noted. No TTP of the knee joint line. No TTP of pes anserine bursa. * Crepitations felt bilaterally Ankles * Right ankle: Good ankle dorsiflexion and plantar flexion. No swelling. No TTP of the ankle joint * Left ankle: Good ankle dorsiflexion and plantar flexion. No swelling. No TTP of the ankle joint Feet * Right foot: Negative squeeze test * Left foot: Negative squeeze test Tender points? * No tenderness to palpation of the bilateral trapezius, supraspinatus, anterior costochondral junctions, bilateral suboccipital muscle insertions SKIN Hypopigmented rash to right arm Small PsO plaque in right ear Vital Signs: Last Vital Signs Pulse 72 01/25/25 14:15 BP 120/66 01/25/25 14:15 Pulse Ox 95 01/25/25 14:15 Oxygen Delivery Method Room Air 01/25/25 14:15 BMI result Body Mass Index 31.3 Results Reviewed Results Reviewed: Laboratory Tests 01/19/25 15:46 WBC 4.0 L RBC 4.27 Hgb 11.5 L Hct 37.1 Plt Count 241 ESR 8 Sodium 140 Potassium 4.2 Chloride 104 Carbon Dioxide 28 BUN 12 Creatinine 0.84 AST 25 ALT 15 C-Reactive Protein 0.48 25-OH Vitamin D Total 39.3 Laboratory Tests 01/27/23 09/19/24 12:38 15:30 SS-A/Ro Antibody >8.0 POS A SS-B/La Antibody <1.0 NEG Sm (Rangel) Antibody <1.0 NEG SM/SOUND EFFECTS PERSON IgG Antibody <1.0 NEG Double Strand DNA Ab <1 Complement C3 115 Complement C4 23 Hepatitis A IgM Ab Nonreactive Hep Bs Antigen Negative Hep Bs Antibody NONREACTIVE Hep B Core Total Ab Nonreactive Hepatitis C Ab (EIA) Nonreactive TB Test (T-Spot) Com Pending DEXA 06/2022 FINDINGS: AP SPINE L1-L4: BMD 1.129 g/cm2, Z-score -0.1, T-score -0.4, normal. LEFT FEMUR, NECK: BMD 0.963 g/cm2, Z-score 0.1, T-score -0.5, normal. LEFT FEMUR, TOTAL: BMD 0.948 g/cm2, Z-score -0.2, T-score -0.5, normal. Assessment & Plan Assessment & Plan (1) Psoriatic arthritis: Comment: Per patient onset around 2003 Prednisone for about 10 years Could not tolerate methotrexate Humira was not effective Hydroxychloroquine throughout Remicade at 5 mgs/kg every 8 weeks started around 2015. DC 12/14 ineffective. +ve infliximab antibody Enbrel 01/14 DC 02/14 due to rash Taltz 08/2023 Unclear when Arava was started. But she only takes 10 mg twice a week, higher doses cause diarrhea Otezla 05/2024. self discontinued due to diarrhea Code(s): L40.50 - Arthropathic psoriasis, unspecified Category: Medical Plan: #PsO complicated by PsA Patient is a 59-year-old female with psoriasis complicated by psoriatic arthritis on Cosentyx infusions, hydroxychloroquine. Currently she is in remission of her disease with respect to her joints but she still has some mild PsO. Will send to derm for help with additional treatment options for skin Plan - Continue cosentyx infusion 200mg IV monthly - Continue plaquenil 200mg bid - Derm referral - Due DEXA scan. Last DEXA normal 2022 - RTC 4 months - Labs before visit: CBC, CMP, ESR, CRP (2) Sjogren syndrome with keratoconjunctivitis: Comment: +++ SSA with sicca symptoms Code(s): M35.01 - Sjogren syndrome with keratoconjunctivitis Category: Medical Plan: #Sjogren's Syndrome Continues to complain of dry eyes Continue plaquenil and conservative measures such as topical eye drops No dry mouth, acutally complaining of increased salivation. Recommended aquafor at the mouth to help with saliva irritation of the skin (3) Long-term use of hydroxychloroquine: Comment: Eye exam 11/2023 okay, 05/2024 okay Code(s): Z79.899 - Other meterman (current) drug therapy Category: Medical Plan: #Long-term Use of Hydroxychloroquine Discussed with patient the risks and benefits of hydroxychloroquine in managing the rheumatic condition Benefits include: - Reduced pain, reduce mortality, maintenance of remission and reduction of flares Risks include: - GI upset, skin hyperpigmentation, retinal toxicity (especially after more than 5 years of use), myopathy Advised yearly ophthalmology visits Last ophthalmology visit: 05/2024 (4) Long-term current use of secukinumab: Code(s): Z79.620 - penitentiary (current) use of immunosuppressive biologic Plan: #penitentiary treatment with IL 17 inhibitors (Cosentyx) Risks and benefits of IL 17 inhibitors discussed with the patient. ?Risks include infections, injection site reactions, activation of inflammatory bowel disease. Benefits include improved disease activity. Discussed with patient that if she is feeling sick or having flu-like symptoms she is to hold the medication that week and resolved the following week. Plan I spent 30 minutes reviewing the record and labs, taking a history, examining the patient, discussing the treatment plan, ordering diagnostic work up and documenting in the medical record Orders: Orders Comprehensive Met. Panel 4 Months Z79.899 - Other meterman (current) drug therapy Complete Blood Count Auto Diff 4 Months Z79.899 - Other meterman (current) drug therapy C Reactive Protein 4 Months Z79.899 - Other meterman (current) drug therapy Erythrocyte Sedimentation Rate 4 Months Z79.899 - Other meterman (current) drug therapy Referrals Dermatology Referral L40.9 - Psoriasis, unspecified Medications: New clotrimazole 1% 1 appl topical BID 45 grams 1RF B37.2 - Candidiasis of skin and nail hydroxychloroquine (Plaquenil) 200 mg PO DAILY 90 tabs 1RF L40.50 - Arthropathic psoriasis, unspecified Coding Level of Care Code Est Pt Level 4 (62719) Complex EM visit Add On G2211 Diagnoses Psoriatic arthritis L40.50 Sjogren syndrome with keratoconjunctivitis M35.01 Long-term use of hydroxychloroquine Z79.899 Long-term current use of secukinumab Z79.620
--- OUTSIDE RECORDS SUMMARY | 2025-01-25 16:33 | XMS_ITS | Encounter Summary ---
Author Organization [facility] Address [address] [place] [address] Phone Care Team Providers Care Tunnel Kiln Firer Name Role Phone Unavailable Primary Care Provider Unavailabl e Encounter Details Date Type Department Care Team (Late st Contact Info) Description 03/09/2014 Legacy Encounter - Labs HISTORICAL CONVERSION [place] [phone], [place] [address] ProviderYoav MD [facility] [place] [phone] Social History Tobacco Use Types Packs/Day Years [...]
--- OUTSIDE RECORDS SUMMARY | 2025-01-25 16:33 | XMS_ITS | Clinical Summary ---
Author Organization [facility] Address [address] [place] [address] Phone Care Team Providers Care Physician Practice Coordinator Name Role Phone Unavailable Primary Care [...] Active -Hx Entry 5 Active HYDROcodone-ac etaminophen ([place]) 10-325 MG per tablet [place]( 10-325MG Oral 1 as needed ) Active [...] Comments Blood Pressure 122/74 03/27/2015 12:01 AM RESEARCH LABORATORY SPECIALIST Pulse 80 03/27/2015 12:01 AM RESEARCH LABORATORY SPECIALIST Temperature - - Respiratory Rate - - Oxygen Saturation - - Inhaled Oxygen Concentration - - Weight 68.9 kg (152 lb) 03/27/2015 12:01 AM RESEARCH LABORATORY SPECIALIST Height 162.6 cm (5' 4 ) 03/27/2015 12:01 AM RESEARCH LABORATORY SPECIALIST Body Mass Index 26.09 03/27/2015 12:01 AM RESEARCH LABORATORY SPECIALIST Plan of Treatment Not on file Insurance PM INTERFACED INSURANCE
--- OUTSIDE RECORDS SUMMARY | 2025-01-25 16:33 | XMS_ITS | Encounter Summary ---
Author Organization [facility] Address [address] [place] [address] Phone Care Team Providers Care Broodmare Foreman Name Role Phone Unavailable Primary Care Provider Unavailabl e Encounter Details Date Type Department Care Team (Late st Contact Info) Description 06/14/2012 Legacy Encounter - Labs HISTORICAL CONVERSION [place] [phone], [place] [address] ProviderYoav MD [facility] [place] [phone] Social History Tobacco Use Types Packs/Day Years [...] LAB RESULT SCAN PROCEDURE 06/14/2012 12:00 AM METAL MINE INSPECTOR documented in this encounter Results * DPS CONVERSION - LAB RESULT SCAN PROCEDURE (06/14/2012 12:00 AM METAL MINE INSPECTOR) Narrative 06/14/2012 12:00 AM METAL MINE INSPECTOR Ordered by an unspecified provider. us Historical Provider LAB BLOOD ORDERABLES Day l Result documented in this encounter Visit Diagnoses Not on filedocumented in this encounter
--- OUTSIDE RECORDS SUMMARY | 2025-01-25 16:33 | XMS_ITS | Encounter Summary ---
Author Organization [facility] Address [address] [place] [address] Phone Care Team Providers Care Job Counselor Name Role Phone Unavailable Primary Care Provider Unavailabl e Encounter Details Date Type Department Care Team (Late st Contact Info) Description 06/11/2011 Legacy Encounter - Labs HISTORICAL CONVERSION [place] [phone], [place] [address] ProviderYoav MD [facility] [place]ily [place] [phone] Social History Tobacco Use Types Packs/Day Years [...] LAB RESULT SCAN PROCEDURE 06/11/2011 12:00 AM FINISH MACHINE TENDER documented in this encounter Results * DPS CONVERSION - LAB RESULT SCAN PROCEDURE (06/11/2011 12:00 AM FINISH MACHINE TENDER) Narrative 06/11/2011 12:00 AM FINISH MACHINE TENDER Ordered by an unspecified provider. us Historical Provider LAB BLOOD ORDERABLES Day l Result documented in this encounter Visit Diagnoses Not on filedocumented in this encounter
--- OUTSIDE RECORDS SUMMARY | 2025-01-25 16:33 | XMS_ITS | Encounter Summary ---
Author Organization [facility] Address [address] [place] [address] Phone Care Team Providers Care Solutions Manager Name Role Phone Unavailable Primary Care Provider Unavailabl e Encounter Details Date Type Department Care Team (Late st Contact Info) Description 09/01/2012 Legacy Encounter - Labs HISTORICAL CONVERSION [place] [phone], [place] [address] ProviderYoav MD [facility] [place] [address] Social History Tobacco Use Types Packs/Day Years [...]
--- OUTSIDE RECORDS SUMMARY | 2025-01-25 16:33 | XMS_ITS | Encounter Summary ---
Author Organization [facility] Address [address] [place] [address] Phone Care Team Providers Care Court Registry Officer Name Role Phone Unavailable Primary Care Provider Unavailabl e Encounter Details Date Type Department Care Team (Late st Contact Info) Description 01/20/2013 Legacy Encounter - Labs HISTORICAL CONVERSION [place] [phone], [place] [address] ProviderYoav MD [facility] [place]all [place] [phone] Social History Tobacco Use Types Packs/Day Years [...]
--- OUTSIDE RECORDS SUMMARY | 2025-01-25 16:33 | XMS_ITS | Encounter Summary ---
Author Organization [facility] Address [address] [place] [address] Phone Care Team Providers Care Oxygen Therapist Name Role Phone Unavailable Primary Care Provider Unavailabl e Encounter Details Date Type Department Care Team (Late st Contact Info) Description 09/12/2010 Legacy Encounter - Labs HISTORICAL CONVERSION [place] [phone], [place] [address] ProviderYoav MD [facility] [address] Social History Tobacco Use Types Packs/Day Years [...]
--- OUTSIDE RECORDS SUMMARY | 2025-01-25 16:33 | XMS_ITS | Encounter Summary ---
Author Organization [facility] Address [address] [place] [address] Phone Care Team Providers Care Milk Hauler Name Role Phone Unavailable Primary Care Provider Unavailabl e Encounter Details Date Type Department Care Team (Late st Contact Info) Description 11/01/2013 Abstract HISTORICAL CONVERSION [place] [phone] ProviderYoav MD [facility] [place] [phone] Social History Tobacco Use Types Packs/Day Years [...]
--- OUTSIDE RECORDS SUMMARY | 2025-01-25 16:33 | XMS_ITS | Encounter Summary ---
Author Organization [facility] Address [address] [place] [address]489 Phone Care Team Providers Care Pump Runner Name Role Phone Unavailable Primary Care Provider Unavailabl e Encounter Details Date Type Department Care Team (Late st Contact Info) Description 09/13/2012 Legacy Encounter - Labs HISTORICAL CONVERSION [place] [phone], [place] [address] ProviderYoav MD formerly [facility] [place] [address] Social History Tobacco Use Types Packs/Day Years [...]
--- OUTSIDE RECORDS SUMMARY | 2025-01-25 16:33 | XMS_ITS | Encounter Summary ---
Author Organization [facility] Address [address] [place] [address] Phone Care Team Providers Care Train Braker Name Role Phone Unavailable Primary Care Provider Unavailabl e Encounter Details Date Type Department Care Team (Late st Contact Info) Description 08/07/2012 Legacy Encounter - Labs HISTORICAL CONVERSION [place] [phone], [place] [address] ProviderYoav MD [facility] [place] [phone] Social History Tobacco Use Types Packs/Day Years [...]
--- OUTSIDE RECORDS SUMMARY | 2025-01-25 16:33 | XMS_ITS | Encounter Summary ---
Author Organization [facility] Address [address] [place] [address]266 Phone Care Team Providers Care Maintenance Custodian Name Role Phone Unavailable Primary Care Provider Unavailabl e Encounter Details Date Type Department Care Team (Late st Contact Info) Description 12/24/2012 Legacy Encounter - Labs HISTORICAL CONVERSION [place] [phone], [place] [address] ProviderYoav MD Formerly [facility] [place] [phone] Social History Tobacco Use Types Packs/Day Years [...]
--- OUTSIDE RECORDS SUMMARY | 2025-01-25 16:33 | XMS_ITS | Encounter Summary ---
Author Organization [facility] Address [address] [place] [address] Phone Care Team Providers Care Car Rental Service Attendant Name Role Phone Unavailable Primary Care Provider Unavailabl e Encounter Details Date Type Department Care Team (Late st Contact Info) Description 07/15/2011 Legacy Encounter - Labs HISTORICAL CONVERSION [place] [phone], [place] [address] ProviderYoav MD [facility] [place] [phone] Social History Tobacco Use Types Packs/Day Years [...] LAB RESULT SCAN PROCEDURE 07/15/2011 12:00 AM ENGINEER SPECIALIST documented in this encounter Results * DPS CONVERSION - LAB RESULT SCAN PROCEDURE (07/15/2011 12:00 AM ENGINEER SPECIALIST) Narrative 07/15/2011 12:00 AM ENGINEER SPECIALIST Ordered by an unspecified provider. us Historical Provider LAB BLOOD ORDERABLES Day l Result documented in this encounter Visit Diagnoses Not on filedocumented in this encounter
--- OUTSIDE RECORDS SUMMARY | 2025-01-25 16:33 | XMS_ITS | Clinical Summary ---
Author Organization [facility] Address [address] [place] [address] Care Team Providers Care Summer Nanny Name Role Phone Pcp, No Primary Care [...] patient's age to complete this topic Insurance [facility] MEDICARE [facility] Care Teams Summer Nanny Relationship Specialty Start Date End Date Pcp, No PCP - General General Medicine 05/27/24
--- OUTSIDE RECORDS SUMMARY | 2025-01-25 16:33 | XMS_ITS | Encounter Summary ---
Author Organization [facility] Address [address] [place] [address] Phone Care Team Providers Care Commissions Manager Name Role Phone Unavailable Primary Care Provider Unavailabl e Encounter Details Date Type Department Care Team (Late st Contact Info) Description 10/29/2013 Legacy Encounter - Labs HISTORICAL CONVERSION [place] [phone], [place] [address] ProviderYoav MD [facility] [place]Donald [place] [phone] Social History Tobacco Use Types Packs/Day Years [...]
--- OUTSIDE RECORDS SUMMARY | 2025-01-25 16:33 | XMS_ITS | Encounter Summary ---
Author Organization [facility] Address [address] [place] [address] Phone Care Team Providers Care Ribbing Machine Operator Name Role Phone Unavailable Primary Care Provider Unavailabl e Encounter Details Date Type Department Care Team (Late st Contact Info) Description 10/23/2009 Legacy Encounter - Labs HISTORICAL CONVERSION Greg [place] [phone], [place] [address] ProviderYoav MD [facility] [place] [phone] Social History Tobacco Use Types Packs/Day Years [...]
--- OUTSIDE RECORDS SUMMARY | 2025-01-25 16:33 | XMS_ITS | Encounter Summary ---
Author Organization [facility] Address [address] [place] [address] Phone Care Team Providers Care Contracts Specialist Name Role Phone Unavailable Primary Care Provider Unavailabl e Encounter Details Date Type Department Care Team (Late st Contact Info) Description 06/29/2012 Legacy Encounter - Labs HISTORICAL CONVERSION Jessica [place] [phone], [place] [address] ProviderYoav MD [facility] [place]Derrick [place] [phone] Social History Tobacco Use Types Packs/Day Years [...] LAB RESULT SCAN PROCEDURE 06/29/2012 12:00 AM MAGAZINE FEEDER documented in this encounter Results * DPS CONVERSION - LAB RESULT SCAN PROCEDURE (06/29/2012 12:00 AM MAGAZINE FEEDER) Narrative 06/29/2012 12:00 AM MAGAZINE FEEDER Ordered by an unspecified provider. us Historical Provider LAB BLOOD ORDERABLES Day l Result documented in this encounter Visit Diagnoses Not on filedocumented in this encounter
--- OUTSIDE RECORDS SUMMARY | 2025-01-25 16:33 | XMS_ITS | Encounter Summary ---
Author Organization [facility] Address [address] [place] [address]213 Phone Care Team Providers Care Gasoline Truck Crane Operator Name Role Phone Unavailable Primary Care Provider Unavailabl e Encounter Details Date Type Department Care Team (Late st Contact Info) Description 03/01/2012 Legacy Encounter - Labs HISTORICAL CONVERSION [place] [phone], [place] [address] ProviderYoav MD [facility]ly [facility] AnyLuke [place] [phone] Social History Tobacco Use Types Packs/Day Years [...]
--- OUTSIDE RECORDS SUMMARY | 2025-01-25 16:33 | XMS_ITS | Encounter Summary ---
Author Organization [facility] Address [address] [place] [address] Phone Care Team Providers Care Extrusion Technician Name Role Phone Unavailable Primary Care Provider Unavailabl e Encounter Details Date Type Department Care Team (Late st Contact Info) Description 07/06/2009 Abstract HISTORICAL CONVERSION Maureen [place] [phone] ProviderYoav MD [facility] [place]Melvin [place] [phone] Social History Tobacco Use Types Packs/Day Years [...]
--- OUTSIDE RECORDS SUMMARY | 2025-01-25 16:33 | XMS_ITS | Encounter Summary ---
Author Organization [facility] Address [address] [place] [address] Phone Care Team Providers Care Blood Donor Recruiter Supervisor Name Role Phone Unavailable Primary Care Provider Unavailabl e Encounter Details Date Type Department Care Team (Late st Contact Info) Description 03/23/2014 Legacy Encounter - Labs HISTORICAL CONVERSION [place] [phone], [place] [address] ProviderYoav MD [facility] [place]Jennifer [place] [phone] Social History Tobacco Use Types Packs/Day Years [...]
--- OUTSIDE RECORDS SUMMARY | 2025-01-25 16:33 | XMS_ITS | Encounter Summary ---
Author Organization [facility] Address [address] [place] [address] Phone Care Team Providers Care Cinder Pit Crane Operator Name Role Phone Unavailable Primary Care Provider Unavailabl e Encounter Details Date Type Department Care Team (Late st Contact Info) Description 11/19/2009 Legacy Encounter - Labs HISTORICAL CONVERSION [place] [phone], [place] [address] ProviderYoav MD [facility] [place]Amy [place] [phone] Social History Tobacco Use Types Packs/Day Years [...]
--- OUTSIDE RECORDS SUMMARY | 2025-01-25 16:33 | XMS_ITS | Encounter Summary ---
Author Organization [facility] Address [address] [place] [address] Phone Care Team Providers Care Beauty Sales Consultant Name Role Phone Unavailable Primary Care Provider Unavailabl e Encounter Details Date Type Department Care Team (Late st Contact Info) Description 06/06/2013 Abstract HISTORICAL CONVERSION Brandi [place] [phone] ProviderYoav MD [facility] [place]Jacob [place] [phone] Social History Tobacco Use Types Packs/Day Years [...]
--- OUTSIDE RECORDS SUMMARY | 2025-01-25 16:33 | XMS_ITS | Encounter Summary ---
Author Organization [facility] Address [address] [place] [address] Phone Care Team Providers Care Jackscrew Worker Name Role Phone Unavailable Primary Care Provider Unavailabl e Encounter Details Date Type Department Care Team (Late st Contact Info) Description 01/09/2014 Legacy Encounter - Labs HISTORICAL CONVERSION Jennifer [place] [phone], [place] [address] ProviderYoav MD [facility] AnyDavid [place] [phone] Social History Tobacco Use Types Packs/Day Years [...]
--- OUTSIDE RECORDS SUMMARY | 2025-01-25 16:33 | XMS_ITS | Encounter Summary ---
Author Organization [facility] Address [address] [place] [address] Phone Care Team Providers Care Data Conversion Operator Name Role Phone Unavailable Primary Care Provider Unavailabl e Encounter Details Date Type Department Care Team (Late st Contact Info) Description 10/22/2012 Legacy Encounter - Labs HISTORICAL CONVERSION Tara [place] [phone], [place] [address] ProviderYoav MD [facility] [place]Ronald [place] [phone] Social History Tobacco Use Types Packs/Day Years [...]
--- OUTSIDE RECORDS SUMMARY | 2025-01-25 16:33 | XMS_ITS | Encounter Summary ---
Author Organization [facility] Address [address] [place] [address]80 Phone Care Team Providers Care Clinical Documentation Nurse Name Role Phone Unavailable Primary Care Provider Unavailabl e Encounter Details Date Type Department Care Team (Late st Contact Info) Description 03/29/2009 Legacy Encounter - Labs HISTORICAL CONVERSION [place] [phone], [place] [address] ProviderYoav MD [address] [place] [address] Social History Tobacco Use Types Packs/Day Years [...] LAB RESULT SCAN PROCEDURE 03/30/2009 12:00 AM INTERNAL GRINDER DPS CONVERSION - LAB RESULT SCAN PROCEDURE 03/29/2009 12:00 AM INTERNAL GRINDER documented in this encounter Results * DPS CONVERSION - LAB RESULT SCAN PROCEDURE (03/30/2009 12:00 AM INTERNAL GRINDER) Narrative 03/30/2009 12:00 AM INTERNAL GRINDER Ordered by an unspecified provider. Historical Provider LAB BLOOD ORDERABLES Day l Result * DPS CONVERSION - LAB RESULT SCAN PROCEDURE (03/29/2009 12:00 AM INTERNAL GRINDER) Narrative 03/29/2009 12:00 AM INTERNAL GRINDER Ordered by an unspecified provider. Historical Provider LAB BLOOD ORDERABLES Day l Result documented in this encounter Visit Diagnoses Not on filedocumented in this encounter
--- OUTSIDE RECORDS SUMMARY | 2025-01-25 16:33 | XMS_ITS | Encounter Summary ---
Author Organization [facility] Address [address] [place] [address]679 Phone Care Team Providers Care Dental Associate Name Role Phone Unavailable Primary Care Provider Unavailabl e Encounter Details Date Type Department Care Team (Late st Contact Info) Description 06/18/2009 Legacy Encounter - Labs HISTORICAL CONVERSION Matthew [place] [phone], [place] [address] ProviderYoav MD [facility] AnyAnthony [place] [phone] Social History Tobacco Use Types Packs/Day Years [...] LAB RESULT SCAN PROCEDURE 06/18/2009 12:00 AM AUXILIARY POWER EQUIPMENT OPERATOR documented in this encounter Results * DPS CONVERSION - LAB RESULT SCAN PROCEDURE (06/18/2009 12:00 AM AUXILIARY POWER EQUIPMENT OPERATOR) Narrative 06/18/2009 12:00 AM AUXILIARY POWER EQUIPMENT OPERATOR Ordered by an unspecified provider. us Historical Provider LAB BLOOD ORDERABLES Day l Result documented in this encounter Visit Diagnoses Not on filedocumented in this encounter
--- OUTSIDE RECORDS SUMMARY | 2025-01-25 16:34 | XMS_ITS | Encounter Summary ---
Author Organization [facility] Address [address] [place] [address] Phone Care Team Providers Care Cad Intern Name Role Phone Unavailable Primary Care Provider Unavailabl e Encounter Details Date Type Department Care Team (Late st Contact Info) Description 01/30/2006 Legacy Encounter - Labs HISTORICAL CONVERSION [place] [phone], [place] [address] ProviderYoav MD [facility] [place]Lydia [place] [phone] Social History Tobacco Use Types Packs/Day Years [...]
--- OUTSIDE RECORDS SUMMARY | 2025-01-25 16:34 | XMS_ITS | Encounter Summary ---
Author Organization [facility] Address [address] [place] [address] 15693 Phone Care Team Providers Care Campus President Name Role Phone Unavailable Primary Care Provider Unavailabl e Encounter Details Date Type Department Care Team (Late st Contact Info) Description 01/18/2014 Legacy Encounter - Labs HISTORICAL CONVERSION [place] [phone], [place] [address] ProviderYoav MD [facility] AnyMelissa [place] [phone] Social History Tobacco Use Types Packs/Day Years [...]
--- OUTSIDE RECORDS SUMMARY | 2025-01-25 16:34 | XMS_ITS | Encounter Summary ---
Author Organization [facility] Address [address] [place] [address]67 Phone Care Team Providers Care Vegetable Handler Name Role Phone Unavailable Primary Care Provider Unavailabl e Encounter Details Date Type Department Care Team (Late st Contact Info) Description 02/13/2014 Legacy Encounter - Labs HISTORICAL CONVERSION [place] [address], [place] [address] ProviderYoav MD [facility] AnyWhitney [place] [phone] Social History Tobacco Use Types Packs/Day Years [...]
--- OUTSIDE RECORDS SUMMARY | 2025-01-25 16:34 | XMS_ITS | Encounter Summary ---
Author Organization [facility] Address [address] [place] [address] 16365 Phone Care Team Providers Care Research Assoc Name Role Phone Unavailable Primary Care Provider Unavailabl e Encounter Details Date Type Department Care Team (Late st Contact Info) Description 10/28/2005 Legacy Encounter - Labs HISTORICAL CONVERSION Rebecca [place] [phone], [place] [address] ProviderYoav MD [facility] [place] [address] Social History Tobacco Use Types Packs/Day Years [...]
--- OUTSIDE RECORDS SUMMARY | 2025-01-25 16:34 | XMS_ITS | Encounter Summary ---
Author Organization [facility] Address [address] [place] [address]83 Phone Care Team Providers Care Rn Plasma Center Name Role Phone Unavailable Primary Care Provider Unavailabl e Encounter Details Date Type Department Care Team (Late st Contact Info) Description 07/28/2006 Legacy Encounter - Labs HISTORICAL CONVERSION [place] [phone], [place] [address] ProviderYoav MD [address] [place] [address] Social History Tobacco Use Types Packs/Day Years [...] LAB RESULT SCAN PROCEDURE 07/28/2006 12:00 AM SUPPLY MANAGER DPS CONVERSION - LAB RESULT SCAN PROCEDURE 07/28/2006 12:00 AM SUPPLY MANAGER documented in this encounter Results * DPS CONVERSION - LAB RESULT SCAN PROCEDURE (07/28/2006 12:00 AM SUPPLY MANAGER) Narrative 07/28/2006 12:00 AM SUPPLY MANAGER Ordered by an unspecified provider. Historical Provider LAB BLOOD ORDERABLES Day l Result * DPS CONVERSION - LAB RESULT SCAN PROCEDURE (07/28/2006 12:00 AM SUPPLY MANAGER) Narrative 07/28/2006 12:00 AM SUPPLY MANAGER Ordered by an unspecified provider. Historical Provider LAB BLOOD ORDERABLES Day l Result documented in this encounter Visit Diagnoses Not on filedocumented in this encounter
--- OUTSIDE RECORDS SUMMARY | 2025-01-25 16:34 | XMS_ITS | Encounter Summary ---
Author Organization [facility] Address [address] [place] [address] Phone Care Team Providers Care Child Study Team Director Name Role Phone Unavailable Primary Care Provider Unavailabl e Encounter Details Date Type Department Care Team (Late st Contact Info) Description 03/26/2009 Abstract HISTORICAL CONVERSION Diane [place] [id number] [phone] ProviderYoav MD [facility] AnyElizabeth [place] [phone] Social History Tobacco Use Types Packs/Day Years [...]
--- OUTSIDE RECORDS SUMMARY | 2025-01-25 16:34 | XMS_ITS | Encounter Summary ---
Author Organization [facility] Address [address] [place] [address]97 Phone Care Team Providers Care Ice Rink Attendant Name Role Phone Unavailable Primary Care Provider Unavailabl e Encounter Details Date Type Department Care Team (Late st Contact Info) Description 01/27/2006 Abstract HISTORICAL CONVERSION Jeremy [place] [phone] ProviderYoav MD [facility] [place]Rebecca [place] [phone] Social History Tobacco Use Types Packs/Day Years [...]
--- OUTSIDE RECORDS SUMMARY | 2025-01-25 16:34 | XMS_ITS | Encounter Summary ---
Author Organization [facility] Address [address] [place] [address] 9[address]65 Phone Care Team Providers Care Cognos Developer Name Role Phone Unavailable Primary Care Provider Unavailabl e Encounter Details Date Type Department Care Team (Late st Contact Info) Description 03/27/2015 Clinical Support HISTORICAL [place] [id number], [place] [address] ProviderYoav MD [facility] AnyRicky [place] [phone] Social History Tobacco Use Types Packs/Day Years [...]
--- OUTSIDE RECORDS SUMMARY | 2025-01-25 16:34 | XMS_ITS | Encounter Summary ---
Author Organization [facility] Address [address] [place] [address] Phone Care Team Providers Care Human Resource Intern Name Role Phone Unavailable Primary Care Provider Unavailabl e Encounter Details Date Type Department Care Team (Late st Contact Info) Description 08/18/2015 Legacy Encounter - Labs HISTORICAL CONVERSION [place] [address], [place] [address] ProviderYoav MD [facility] AnyTerri [place] [phone] Social History Tobacco Use Types Packs/Day Years [...]
--- OUTSIDE RECORDS SUMMARY | 2025-01-25 16:34 | XMS_ITS | Encounter Summary ---
Author Organization [facility] Address [address] [place] [address] Phone Care Team Providers Care Full Fashioned Garment Knitter Name Role Phone Unavailable Primary Care Provider Unavailabl e Encounter Details Date Type Department Care Team (Late st Contact Info) Description 03/13/2015 Legacy Encounter - Labs HISTORICAL CONVERSION Michael [place] [address], [place] [address] ProviderYoav MD [facility] AnyKristopher [place] [phone] Social History Tobacco Use Types Packs/Day Years [...]
--- OUTSIDE RECORDS SUMMARY | 2025-01-25 16:34 | XMS_ITS | Encounter Summary ---
Author Organization [facility] Address [address] [place] [address] Phone Care Team Providers Care Building Maintenance Technician Name Role Phone Unavailable Primary Care Provider Unavailabl e Encounter Details Date Type Department Care Team (Late st Contact Info) Description 11/06/2006 Legacy Encounter - Labs HISTORICAL CONVERSION [place]le [place] [phone], [place] [address] ProviderYoav MD [facility] [place] [address] Social History Tobacco Use Types Packs/Day Years [...] AM CDT Ordered by an unspecified provider. [facility] Provider LAB BLOOD ORDERABLES Day l Result * DPS CONVERSION - LAB RESULT SCAN PROCEDURE (11/06/2006 12:00 AM CDT) Narrative 11/06/2006 12:00 AM CDT Ordered by an unspecified provider. [facility] Provider LAB BLOOD ORDERABLES Day l Result * DPS CONVERSION - LAB RESULT SCAN PROCEDURE (11/06/2006 12:00 AM CDT) Narrative 11/06/2006 12:00 AM CDT Ordered by an unspecified provider. [facility] Provider LAB BLOOD ORDERABLES Day l Result documented in this encounter Visit Diagnoses Not on filedocumented in this encounter
--- OUTSIDE RECORDS SUMMARY | 2025-01-25 16:34 | XMS_ITS | Encounter Summary ---
Author Organization [facility] Address [address] [place] [address] Phone Care Team Providers Care Supply Tech Name Role Phone Unavailable Primary Care Provider Unavailabl e Encounter Details Date Type Department Care Team (Late st Contact Info) Description 03/28/2015 Abstract HISTORICAL CONVERSION Amanda [place] [phone] ProviderYoav MD [facility] AnyAshley [place] [phone] Social History Tobacco Use Types Packs/Day Years [...]
--- OUTSIDE RECORDS SUMMARY | 2025-01-25 16:34 | XMS_ITS | Encounter Summary ---
Author Organization [facility] Address [address] [place] [address] Phone Care Team Providers Care Client Support Representative Name Role Phone Unavailable Primary Care Provider Unavailabl e Encounter Details Date Type Department Care Team (Late st Contact Info) Description 08/17/2015 Legacy Encounter - Labs HISTORICAL CONVERSION [place] [address], [place] [address] ProviderYoav MD [facility] AnyNancy [place] [phone] Social History Tobacco Use Types Packs/Day Years [...]
--- OUTSIDE RECORDS SUMMARY | 2025-01-25 16:34 | XMS_ITS | Encounter Summary ---
Author Organization [facility] Address [address] [place] [address] Phone Care Team Providers Care Chemical Blender Name Role Phone Unavailable Primary Care Provider Unavailabl e Encounter Details Date Type Department Care Team (Late st Contact Info) Description 04/29/2006 Legacy Encounter - Labs HISTORICAL CONVERSION Christina [place] [phone], [place] [address] ProviderYoav MD [facility] [place] [address] Social History Tobacco Use Types Packs/Day Years [...] LAB RESULT SCAN PROCEDURE 04/29/2006 12:00 AM DOCK LOADER DPS CONVERSION - LAB RESULT SCAN PROCEDURE 04/29/2006 12:00 AM DOCK LOADER DPS CONVERSION - LAB RESULT SCAN PROCEDURE 04/29/2006 12:00 AM DOCK LOADER documented in this encounter Results * DPS CONVERSION - LAB RESULT SCAN PROCEDURE (04/29/2006 12:00 AM DOCK LOADER) Narrative 04/29/2006 12:00 AM DOCK LOADER Ordered by an unspecified provider. us Historical Provider LAB BLOOD ORDERABLES Day l Result * DPS CONVERSION - LAB RESULT SCAN PROCEDURE (04/29/2006 12:00 AM DOCK LOADER) Narrative 04/29/2006 12:00 AM DOCK LOADER Ordered by an unspecified provider. us Historical Provider LAB BLOOD ORDERABLES Day l Result * DPS CONVERSION - LAB RESULT SCAN PROCEDURE (04/29/2006 12:00 AM DOCK LOADER) Narrative 04/29/2006 12:00 AM DOCK LOADER Ordered by an unspecified provider. us Historical Provider LAB BLOOD ORDERABLES Day l Result documented in this encounter Visit Diagnoses Not on filedocumented in this encounter
--- OUTSIDE RECORDS SUMMARY | 2025-01-25 16:34 | XMS_ITS | Encounter Summary ---
Author Organization [facility] Address [address] [place] [address] Phone Care Team Providers Care [employer]oured [employer] Officer Name Role Phone Unavailable Primary Care Provider Unavailabl e Encounter Details Date Type Department Care Team (Late st Contact Info) Description 11/20/2005 Legacy Encounter - Labs HISTORICAL CONVERSION [place] [phone], [place] [address] ProviderYoav MD [facility] [place] [address] Social History Tobacco Use Types Packs/Day Years [...]
--- OUTSIDE RECORDS SUMMARY | 2025-01-25 16:34 | XMS_ITS | Encounter Summary ---
Author Organization [facility] Address [address] [place] [address] Phone Care Team Providers Care Die Polisher Name Role Phone Unavailable Primary Care Provider Unavailabl e Encounter Details Date Type Department Care Team (Late st Contact Info) Description 08/28/2006 Legacy Encounter - Labs HISTORICAL CONVERSION [place] [phone], [place] [address] ProviderYoav MD [facility] [place] [phone] Social History Tobacco Use Types Packs/Day Years [...]
--- OUTSIDE RECORDS SUMMARY | 2025-01-25 16:34 | XMS_ITS | Encounter Summary ---
Author Organization [facility] Address [address] [place] [address] Phone Care Team Providers Care Secretary Of Police Name Role Phone Unavailable Primary Care Provider Unavailabl e Encounter Details Date Type Department Care Team (Late st Contact Info) Description 05/04/2006 Legacy Encounter - Labs HISTORICAL CONVERSION [place] [address], [place] [address] ProviderYoav MD [facility] [place] [phone] Social History Tobacco Use Types Packs/Day Years [...] LAB RESULT SCAN PROCEDURE 05/04/2006 12:00 AM BANQUET LINE COOK documented in this encounter Results * DPS CONVERSION - LAB RESULT SCAN PROCEDURE (05/04/2006 12:00 AM BANQUET LINE COOK) Narrative 05/04/2006 12:00 AM BANQUET LINE COOK Ordered by an unspecified provider. us Historical Provider LAB BLOOD ORDERABLES Day l Result documented in this encounter Visit Diagnoses Not on filedocumented in this encounter
--- OUTSIDE RECORDS SUMMARY | 2025-01-25 16:34 | XMS_ITS | Encounter Summary ---
Author Organization [facility] Address [address] [place] [address] Phone Care Team Providers Care Grinder Tender Name Role Phone Unavailable Primary Care Provider Unavailabl e Encounter Details Date Type Department Care Team (Late st Contact Info) Description 10/05/2008 Legacy Encounter - Labs HISTORICAL CONVERSION [place] [phone], [place] [address] ProviderYoav MD [facility] [place] [phone] Social History Tobacco Use Types Packs/Day Years [...]
--- OUTSIDE RECORDS SUMMARY | 2025-01-25 16:34 | XMS_ITS | Encounter Summary ---
Author Organization [facility] Address [address] [place] [address] Phone Care Team Providers Care Nursing Assistant Name Role Phone Unavailable Primary Care Provider Unavailabl e Encounter Details Date Type Department Care Team (Late st Contact Info) Description 09/18/2008 Legacy Encounter - Labs HISTORICAL CONVERSION [place]la [place] [phone], [place] [address] ProviderYoav MD [facility] [place]Patrick [place] [phone] Social History Tobacco Use Types Packs/Day Years [...]
--- OUTSIDE RECORDS SUMMARY | 2025-01-25 16:34 | XMS_ITS | Clinical Summary ---
Author Organization [facility] Address [address] [place] [address] Phone Care Team Providers Care Human Resources Analyst Name Role Phone Unknown, Unknown Primary Care [...] Payer (Ef fective 2020-Present) Name:Fabiana Fraser Member ID:[id number] Relation to Subscriber:Self Name:Fabiana Fraser Subscriber ID:[id number] Payer ID:[id number] Group ID:Not on file Type:Medicare Address: [employer] [address] MEDICARE REPLACEMENT MEDICARE PART A & B MEDICARE REPLACEMENT MEDICARE PART A & B MEDICARE REPLACEMENT MEDICARE PART A & B [facility] MEDICARE REPLACEMENT MEDICARE PART A & B [facility] MEDICARE REPLACEMENT MEDICARE PART A & B Member Subscriber Plan / Payer (Ef fective 2020-Present) Name:Fabiana Fraser Member ID:[id number] Relation to Subscriber:Self Name:Fabiana Fraser Subscriber ID:[id number] Payer ID:[id number] Group ID:Not on file Type:Medicare Address: [facility] [address] [place] [address] [place] [address] MEDICARE REPLACEMENT MEDICARE PART A & B MEDICARE REPLACEMENT [place] [id number] MEDICARE PART A & B MEDICARE REPLACEMENT Care Teams Human Resources Analyst Relationship Specialty Start Date End Date Unknown, Unknown, PCP - General 12/10/21 Additional Source Comments The information contained in this document represents components of the legal health record. It is not the complete legal health record.[facility]
== END 2025-01-25 14:49 | disposition home or self-care (01) ==
LOC: HO.RHES 14:10
PROVIDERS: PCP Nurse Practitioner Family; Visit Provider Student in an Organized Health Care Education/Training Program
DX: L40.50 Arthropathic psoriasis, unspecified (principal); M35.01 Sjogren syndrome with keratoconjunctivitis; Z79.899 Other long term (current) drug therapy; Z79.620 Long term (current) use of immunosuppressive biologic
CPT/HCPCS: 99214; G2211

== ENCOUNTER → 2025-01-25 14:09 | Outpatient (BNVA) | payer MEDICARE, SELFPAY | PROVIDERS: PCP Nurse Practitioner Family; Visit Provider Student in an Organized Health Care Education/Training Program | DX: L40.50 Arthropathic psoriasis, unspecified (principal); M35.01 Sjogren syndrome with keratoconjunctivitis; Z79.899 Other long term (current) drug therapy; Z79.620 Long term (current) use of immunosuppressive biologic | CPT/HCPCS: 99212 ==

== ENCOUNTER 2025-02-21 07:34 | Outpatient (REF) | payer MEDICARE, SELFPAY ==
--- OUTSIDE RECORDS SUMMARY | 2025-02-21 07:38 | XMS_ITS | Encounter Summary ---
Author Organization [facility] Address [address] [place] [address] Phone Care Team Providers Care Iron And Steel Work Supervisor Name Role Phone Unavailable Primary Care Provider Unavailabl e Encounter Details Date Type Department Care Team (Late st Contact Info) Description 11/01/2013 Abstract HISTORICAL CONVERSION [place] [phone] ProviderYoav MD [facility] [place]Lisa [place] [phone] Social History Tobacco Use Types Packs/Day Years [...]
--- OUTSIDE RECORDS SUMMARY | 2025-02-21 07:38 | XMS_ITS | Clinical Summary ---
Author Organization [facility] Address [address] [place] [address] Care Team Providers Care Eeler Name Role Phone Pcp, No Primary Care [...] patient's age to complete this topic Insurance [facility] MEDICARE [facility] Care Teams Eeler Relationship Specialty Start Date End Date Pcp, No PCP - General General Medicine 05/27/24
--- OUTSIDE RECORDS SUMMARY | 2025-02-21 07:38 | XMS_ITS | Encounter Summary ---
Author Organization [facility] Address [address] [place] [address] Phone Care Team Providers Care Bullet Assembly Press Operator Name Role Phone Unavailable Primary Care Provider Unavailabl e Encounter Details Date Type Department Care Team (Late st Contact Info) Description 09/01/2012 Legacy Encounter - Labs HISTORICAL CONVERSION [place] [phone], [place] [address] ProviderYoav MD [facility] [place] [address] Social History Tobacco Use Types Packs/Day Years [...]
--- OUTSIDE RECORDS SUMMARY | 2025-02-21 07:38 | XMS_ITS | Encounter Summary ---
Author Organization [facility] Address [address] [place] [address] Phone Care Team Providers Care Petroleum Engineering Teacher Name Role Phone Unavailable Primary Care Provider Unavailabl e Encounter Details Date Type Department Care Team (Late st Contact Info) Description 06/29/2012 Legacy Encounter - Labs HISTORICAL CONVERSION [place] [phone], [place] [address] ProviderYoav MD [facility] AnyRyan [place] [phone] Social History Tobacco Use Types Packs/Day Years [...] LAB RESULT SCAN PROCEDURE 06/29/2012 12:00 AM AUTOMATIC PAINT SPRAYER OPERATOR documented in this encounter Results * DPS CONVERSION - LAB RESULT SCAN PROCEDURE (06/29/2012 12:00 AM AUTOMATIC PAINT SPRAYER OPERATOR) Narrative 06/29/2012 12:00 AM AUTOMATIC PAINT SPRAYER OPERATOR Ordered by an unspecified provider. us Historical Provider LAB BLOOD ORDERABLES Day l Result documented in this encounter Visit Diagnoses Not on filedocumented in this encounter
--- OUTSIDE RECORDS SUMMARY | 2025-02-21 07:38 | XMS_ITS | Encounter Summary ---
Author Organization [facility] Address [address] [place] [address] Phone Care Team Providers Care Brick Off Bearer Name Role Phone Unavailable Primary Care Provider Unavailabl e Encounter Details Date Type Department Care Team (Late st Contact Info) Description 10/22/2012 Legacy Encounter - Labs HISTORICAL CONVERSION [place] [phone], [place] [address] ProviderYoav MD [facility] [place]Bryan [place] [phone] Social History Tobacco Use Types Packs/Day Years [...]
--- OUTSIDE RECORDS SUMMARY | 2025-02-21 07:38 | XMS_ITS | Encounter Summary ---
Author Organization [facility] Address [address] [place] [address] Phone Care Team Providers Care Screw Supervisor Name Role Phone Unavailable Primary Care Provider Unavailabl e Encounter Details Date Type Department Care Team (Late st Contact Info) Description 08/07/2012 Legacy Encounter - Labs HISTORICAL CONVERSION [place] [phone], [place] [address] ProviderYoav MD [facility] AnyDavid [place] [phone] Social History Tobacco Use Types Packs/Day Years [...]
--- OUTSIDE RECORDS SUMMARY | 2025-02-21 07:38 | XMS_ITS | Encounter Summary ---
Author Organization [facility] Address [address] [place] [address] Phone Care Team Providers Care Human Resource Adviser Name Role Phone Unavailable Primary Care Provider Unavailabl e Encounter Details Date Type Department Care Team (Late st Contact Info) Description 12/24/2012 Legacy Encounter - Labs HISTORICAL CONVERSION [place] [address], [place] [address] ProviderYoav MD [facility] [place] [phone] Social History Tobacco Use Types Packs/Day Years [...]
--- OUTSIDE RECORDS SUMMARY | 2025-02-21 07:38 | XMS_ITS | Encounter Summary ---
Author Organization [facility] Address [address] [place] [address] Phone Care Team Providers Care Home Care Associate Name Role Phone Unavailable Primary Care Provider Unavailabl e Encounter Details Date Type Department Care Team (Late st Contact Info) Description 09/13/2012 Legacy Encounter - Labs HISTORICAL CONVERSION [place] [address], [place] [address] ProviderYoav MD [facility] [place] [address] Social History Tobacco Use Types Packs/Day Years [...]
--- OUTSIDE RECORDS SUMMARY | 2025-02-21 07:38 | XMS_ITS | Encounter Summary ---
Author Organization [facility] Address [address] [place] [address] Phone Care Team Providers Care Clerk Analyst Name Role Phone Unavailable Primary Care Provider Unavailabl e Encounter Details Date Type Department Care Team (Late st Contact Info) Description 06/06/2013 Abstract HISTORICAL CONVERSION [place] [phone] ProviderYoav MD [facility] [place]Mel[place] [phone] Social History Tobacco Use Types Packs/Day Years [...]
--- OUTSIDE RECORDS SUMMARY | 2025-02-21 07:38 | XMS_ITS | Encounter Summary ---
Author Organization [facility] Address [address] [place] [address] Phone Care Team Providers Care Basket Bottom Machine Operator Name Role Phone Unavailable Primary Care Provider Unavailabl e Encounter Details Date Type Department Care Team (Late st Contact Info) Description 01/20/2013 Legacy Encounter - Labs HISTORICAL CONVERSION [place] [phone], [place] [address] ProviderYoav MD [facility] AnyBrooke [place] [phone] Social History Tobacco Use Types Packs/Day Years [...]
--- OUTSIDE RECORDS SUMMARY | 2025-02-21 07:39 | XMS_ITS | Encounter Summary ---
Author Organization [facility] Address [address] [place] [address] Phone Care Team Providers Care Data Entry Machine Operator Name Role Phone Unavailable Primary Care Provider Unavailabl e Encounter Details Date Type Department Care Team (Late st Contact Info) Description 03/01/2012 Legacy Encounter - Labs HISTORICAL CONVERSION [place] [address], [place] [address] ProviderYoav MD [facility] AnyCourtney [place] [phone] Social History Tobacco Use Types Packs/Day Years [...]
--- OUTSIDE RECORDS SUMMARY | 2025-02-21 07:39 | XMS_ITS | Encounter Summary ---
Author Organization [facility] Address [address] [place] [address] Phone Care Team Providers Care Outside Rigger Name Role Phone Unavailable Primary Care Provider Unavailabl e Encounter Details Date Type Department Care Team (Late st Contact Info) Description 07/06/2009 Abstract HISTORICAL CONVERSION [place] [phone] ProviderYoav MD [facility] [place]Sean [place] [phone] Social History Tobacco Use Types Packs/Day Years [...]
--- OUTSIDE RECORDS SUMMARY | 2025-02-21 07:39 | XMS_ITS | Encounter Summary ---
Author Organization [facility] Address [address] [place] [address] Phone Care Team Providers Care Coach Mechanic Name Role Phone Unavailable Primary Care Provider Unavailabl e Encounter Details Date Type Department Care Team (Late st Contact Info) Description 11/19/2009 Legacy Encounter - Labs HISTORICAL CONVERSION [place] [address], [place] [address] ProviderYoav MD [facility] AnyAlejandro [place] [phone] Social History Tobacco Use Types Packs/Day Years [...]
--- OUTSIDE RECORDS SUMMARY | 2025-02-21 07:39 | XMS_ITS | Encounter Summary ---
Author Organization [facility] Address [address] [place] [address] Phone Care Team Providers Care Field Reimbursement Manager Name Role Phone Unavailable Primary Care Provider Unavailabl e Encounter Details Date Type Department Care Team (Late st Contact Info) Description 06/11/2011 Legacy Encounter - Labs HISTORICAL CONVERSION [place] [phone], [place] [address] ProviderYoav MD [facility] AnyDebra [place] [phone] Social History Tobacco Use Types Packs/Day Years [...] LAB RESULT SCAN PROCEDURE 06/11/2011 12:00 AM IT SUPPORT MANAGER documented in this encounter Results * DPS CONVERSION - LAB RESULT SCAN PROCEDURE (06/11/2011 12:00 AM IT SUPPORT MANAGER) Narrative 06/11/2011 12:00 AM IT SUPPORT MANAGER Ordered by an unspecified provider. us Historical Provider LAB BLOOD ORDERABLES Day l Result documented in this encounter Visit Diagnoses Not on filedocumented in this encounter
--- OUTSIDE RECORDS SUMMARY | 2025-02-21 07:39 | XMS_ITS | Encounter Summary ---
Author Organization [facility] Address [address] [place] [address] Phone Care Team Providers Care Keyboard Instrument Tuner Name Role Phone Unavailable Primary Care Provider Unavailabl e Encounter Details Date Type Department Care Team (Late st Contact Info) Description 06/14/2012 Legacy Encounter - Labs HISTORICAL CONVERSION Chad [place] [phone], [place] [address] ProviderYoav MD [facility] AnyShannon [place] [phone] Social History Tobacco Use Types Packs/Day Years [...] LAB RESULT SCAN PROCEDURE 06/14/2012 12:00 AM GLASS CUT OFF TENDER documented in this encounter Results * DPS CONVERSION - LAB RESULT SCAN PROCEDURE (06/14/2012 12:00 AM GLASS CUT OFF TENDER) Narrative 06/14/2012 12:00 AM GLASS CUT OFF TENDER Ordered by an unspecified provider. us Historical Provider LAB BLOOD ORDERABLES Day l Result documented in this encounter Visit Diagnoses Not on filedocumented in this encounter
--- OUTSIDE RECORDS SUMMARY | 2025-02-21 07:39 | XMS_ITS | Encounter Summary ---
Author Organization [facility] Address [address] [place] [address] Phone Care Team Providers Care Oil Expert Name Role Phone Unavailable Primary Care Provider Unavailabl e Encounter Details Date Type Department Care Team (Late st Contact Info) Description 06/18/2009 Legacy Encounter - Labs HISTORICAL CONVERSION [place] [address], [place] [address] ProviderYoav MD [facility] AnyCristina [place] [phone] Social History Tobacco Use Types Packs/Day Years [...] LAB RESULT SCAN PROCEDURE 06/18/2009 12:00 AM HYPERBARIC TECHNOLOGIST documented in this encounter Results * DPS CONVERSION - LAB RESULT SCAN PROCEDURE (06/18/2009 12:00 AM HYPERBARIC TECHNOLOGIST) Narrative 06/18/2009 12:00 AM HYPERBARIC TECHNOLOGIST Ordered by an unspecified provider. us Historical Provider LAB BLOOD ORDERABLES Day l Result documented in this encounter Visit Diagnoses Not on filedocumented in this encounter
--- OUTSIDE RECORDS SUMMARY | 2025-02-21 07:39 | XMS_ITS | Encounter Summary ---
Author Organization [facility] Address [address] [place] [address] Phone Care Team Providers Care Template Maker Name Role Phone Unavailable Primary Care Provider Unavailabl e Encounter Details Date Type Department Care Team (Late st Contact Info) Description 09/12/2010 Legacy Encounter - Labs HISTORICAL CONVERSION [place] [address], [place] [address] ProviderYoav MD [facility] [place] [address] Social History Tobacco Use Types Packs/Day Years [...]
--- OUTSIDE RECORDS SUMMARY | 2025-02-21 07:39 | XMS_ITS | Encounter Summary ---
Author Organization [facility] Address [address] [place] [address] Phone Care Team Providers Care Cost And Risk Analysis Manager Name Role Phone Unavailable Primary Care Provider Unavailabl e Encounter Details Date Type Department Care Team (Late st Contact Info) Description 10/23/2009 Legacy Encounter - Labs HISTORICAL CONVERSION Cyn[place] [address], [place] [address] ProviderYoav MD [facility] AnyAlbert [place] [phone] Social History Tobacco Use Types Packs/Day Years [...]
--- OUTSIDE RECORDS SUMMARY | 2025-02-21 07:39 | XMS_ITS | Encounter Summary ---
Author Organization [facility] Address [address] [place] [address] Phone Care Team Providers Care Cadd Operator Name Role Phone Unavailable Primary Care Provider Unavailabl e Encounter Details Date Type Department Care Team (Late st Contact Info) Description 03/29/2009 Legacy Encounter - Labs HISTORICAL CONVERSION [place] [phone], [place] [address] ProviderYoav MD [address] [place] [address] Social History Tobacco Use Types Packs/Day Years [...] LAB RESULT SCAN PROCEDURE 03/30/2009 12:00 AM TRUCK SALES REPRESENTATIVE DPS CONVERSION - LAB RESULT SCAN PROCEDURE 03/29/2009 12:00 AM TRUCK SALES REPRESENTATIVE documented in this encounter Results * DPS CONVERSION - LAB RESULT SCAN PROCEDURE (03/30/2009 12:00 AM TRUCK SALES REPRESENTATIVE) Narrative 03/30/2009 12:00 AM TRUCK SALES REPRESENTATIVE Ordered by an unspecified provider. Historical Provider LAB BLOOD ORDERABLES Day l Result * DPS CONVERSION - LAB RESULT SCAN PROCEDURE (03/29/2009 12:00 AM TRUCK SALES REPRESENTATIVE) Narrative 03/29/2009 12:00 AM TRUCK SALES REPRESENTATIVE Ordered by an unspecified provider. Historical Provider LAB BLOOD ORDERABLES Day l Result documented in this encounter Visit Diagnoses Not on filedocumented in this encounter
--- OUTSIDE RECORDS SUMMARY | 2025-02-21 07:39 | XMS_ITS | Encounter Summary ---
Author Organization [facility] Address [address] [place] [address] Phone Care Team Providers Care Investment Professional Name Role Phone Unavailable Primary Care Provider Unavailabl e Encounter Details Date Type Department Care Team (Late st Contact Info) Description 10/29/2013 Legacy Encounter - Labs HISTORICAL CONVERSION [place] [address], [place] [address] ProviderYoav MD [facility] [place] [address] Social History Tobacco Use Types Packs/Day Years [...]
--- OUTSIDE RECORDS SUMMARY | 2025-02-21 07:40 | XMS_ITS | Encounter Summary ---
Author Organization [facility] Address [address] [place] [address] Phone Care Team Providers Care Investigator Vice Name Role Phone Unavailable Primary Care Provider Unavailabl e Encounter Details Date Type Department Care Team (Late st Contact Info) Description 10/28/2005 Legacy Encounter - Labs HISTORICAL CONVERSION [place] [address], [place] [address] ProviderYoav MD [facility] [place] [address] Social History Tobacco Use Types Packs/Day Years [...]
--- OUTSIDE RECORDS SUMMARY | 2025-02-21 07:40 | XMS_ITS | Encounter Summary ---
Author Organization [facility] Address [address] [place] [address] Phone Care Team Providers Care Field Pipe Lines Supervisor Name Role Phone Unavailable Primary Care Provider Unavailabl e Encounter Details Date Type Department Care Team (Late st Contact Info) Description 03/27/2015 Clinical Support HISTORICAL [place] [phone] [address] ProviderYoav MD [facility] AnyDevin [place] [phone] Social History Tobacco Use Types Packs/Day Years [...]
--- OUTSIDE RECORDS SUMMARY | 2025-02-21 07:40 | XMS_ITS | Encounter Summary ---
Author Organization [facility] Address [address] [place] [address] Phone Care Team Providers Care Wet End Helper Name Role Phone Unavailable Primary Care Provider Unavailabl e Encounter Details Date Type Department Care Team (Late st Contact Info) Description 01/30/2006 Legacy Encounter - Labs HISTORICAL CONVERSION [place] [address], [place] [address] ProviderYoav MD [facility] AnySteven [place] [phone] Social History Tobacco Use Types Packs/Day Years [...]
--- OUTSIDE RECORDS SUMMARY | 2025-02-21 07:40 | XMS_ITS | Encounter Summary ---
Author Organization [facility] Address [address] [place] [address] Phone Care Team Providers Care Fiber Optic Central Office Installer Name Role Phone Unavailable Primary Care Provider Unavailabl e Encounter Details Date Type Department Care Team (Late st Contact Info) Description 04/29/2006 Legacy Encounter - Labs HISTORICAL CONVERSION [place] [address], [place] [address] ProviderYoav MD [facility] [place] [address] Social History Tobacco Use Types Packs/Day Years [...] LAB RESULT SCAN PROCEDURE 04/29/2006 12:00 AM MASTER PILOT DPS CONVERSION - LAB RESULT SCAN PROCEDURE 04/29/2006 12:00 AM MASTER PILOT DPS CONVERSION - LAB RESULT SCAN PROCEDURE 04/29/2006 12:00 AM MASTER PILOT documented in this encounter Results * DPS CONVERSION - LAB RESULT SCAN PROCEDURE (04/29/2006 12:00 AM MASTER PILOT) Narrative 04/29/2006 12:00 AM MASTER PILOT Ordered by an unspecified provider. us Historical Provider LAB BLOOD ORDERABLES Day l Result * DPS CONVERSION - LAB RESULT SCAN PROCEDURE (04/29/2006 12:00 AM MASTER PILOT) Narrative 04/29/2006 12:00 AM MASTER PILOT Ordered by an unspecified provider. us Historical Provider LAB BLOOD ORDERABLES Day l Result * DPS CONVERSION - LAB RESULT SCAN PROCEDURE (04/29/2006 12:00 AM MASTER PILOT) Narrative 04/29/2006 12:00 AM MASTER PILOT Ordered by an unspecified provider. us Historical Provider LAB BLOOD ORDERABLES Day l Result documented in this encounter Visit Diagnoses Not on filedocumented in this encounter
--- OUTSIDE RECORDS SUMMARY | 2025-02-21 07:40 | XMS_ITS | Encounter Summary ---
Author Organization [facility] Address [address] [place] [address] Phone Care Team Providers Care Sewing Machines Salesperson Name Role Phone Unavailable Primary Care Provider Unavailabl e Encounter Details Date Type Department Care Team (Late st Contact Info) Description 01/09/2014 Legacy Encounter - Labs HISTORICAL CONVERSION [place] [address], [place] [address] ProviderYoav MD [facility] [place] [address] Social History Tobacco Use Types Packs/Day Years [...]
--- OUTSIDE RECORDS SUMMARY | 2025-02-21 07:40 | XMS_ITS | Encounter Summary ---
Author Organization [facility] Address [address] [place] [address] Phone Care Team Providers Care Key Account Representative Name Role Phone Unavailable Primary Care Provider Unavailabl e Encounter Details Date Type Department Care Team (Late st Contact Info) Description 07/15/2011 Legacy Encounter - Labs HISTORICAL CONVERSION [place] [address], [place] [address] ProviderYoav MD [facility] [place]Tyler [place] [phone] Social History Tobacco Use Types Packs/Day Years [...] LAB RESULT SCAN PROCEDURE 07/15/2011 12:00 AM WEB COMMUNICATIONS SPECIALIST documented in this encounter Results * DPS CONVERSION - LAB RESULT SCAN PROCEDURE (07/15/2011 12:00 AM WEB COMMUNICATIONS SPECIALIST) Narrative 07/15/2011 12:00 AM WEB COMMUNICATIONS SPECIALIST Ordered by an unspecified provider. us Historical Provider LAB BLOOD ORDERABLES Day l Result documented in this encounter Visit Diagnoses Not on filedocumented in this encounter
--- OUTSIDE RECORDS SUMMARY | 2025-02-21 07:40 | XMS_ITS | Encounter Summary ---
Author Organization [facility] Address [address] [place] [address] Phone Care Team Providers Care Electronic Service Technician Name Role Phone Unavailable Primary Care Provider Unavailabl e Encounter Details Date Type Department Care Team (Late st Contact Info) Description 08/18/2015 Legacy Encounter - Labs HISTORICAL CONVERSION [place] [phone], [place] [address] ProviderYoav MD [facility] [place] [phone] Social History Tobacco Use Types Packs/Day Years [...]
--- OUTSIDE RECORDS SUMMARY | 2025-02-21 07:40 | XMS_ITS | Encounter Summary ---
Author Organization [facility] Address [address] [place] [address] Phone Care Team Providers Care Framing Carpenter Name Role Phone Unavailable Primary Care Provider Unavailabl e Encounter Details Date Type Department Care Team (Late st Contact Info) Description 09/18/2008 Legacy Encounter - Labs HISTORICAL CONVERSION [place] [phone], [place] [address] ProviderYoav MD [facility] [place] [phone] Social History Tobacco Use Types Packs/Day Years [...]
--- OUTSIDE RECORDS SUMMARY | 2025-02-21 07:40 | XMS_ITS | Encounter Summary ---
Author Organization [facility] Address [address] [place] [address] Phone Care Team Providers Care Mop Machine Operator Name Role Phone Unavailable Primary Care Provider Unavailabl e Encounter Details Date Type Department Care Team (Late st Contact Info) Description 08/17/2015 Legacy Encounter - Labs HISTORICAL CONVERSION [place] [phone], [place] [address] ProviderYoav MD Counts include 234 beds at the [facility] [place] [phone] Social History Tobacco Use Types Packs/Day Years [...]
--- OUTSIDE RECORDS SUMMARY | 2025-02-21 07:40 | XMS_ITS | Encounter Summary ---
Author Organization [facility] Address [address] [place] [address] Phone Care Team Providers Care Chief Of Anesthesiology Name Role Phone Unavailable Primary Care Provider Unavailabl e Encounter Details Date Type Department Care Team (Late st Contact Info) Description 11/20/2005 Legacy Encounter - Labs HISTORICAL CONVERSION [place] [phone], [place] [address] ProviderYoav MD [facility] [place] [address] Social History Tobacco Use Types Packs/Day Years [...]
--- OUTSIDE RECORDS SUMMARY | 2025-02-21 07:40 | XMS_ITS | Encounter Summary ---
Author Organization [facility] Address [address] [place] [address] Phone Care Team Providers Care It Systems Manager Name Role Phone Unavailable Primary Care Provider Unavailabl e Encounter Details Date Type Department Care Team (Late st Contact Info) Description 01/27/2006 Abstract HISTORICAL CONVERSION [place] [phone] ProviderYoav MD [facility] [place] [phone] Social History Tobacco Use Types Packs/Day Years [...]
--- OUTSIDE RECORDS SUMMARY | 2025-02-21 07:40 | XMS_ITS | Encounter Summary ---
Author Organization [facility] Address [address] [place] [address] Phone Care Team Providers Care Signaling Design Engineer Name Role Phone Unavailable Primary Care Provider Unavailabl e Encounter Details Date Type Department Care Team (Late st Contact Info) Description 05/04/2006 Legacy Encounter - Labs HISTORICAL CONVERSION [place] [phone], [place] [address] ProviderYoav MD [facility] [place] [phone] Social History Tobacco Use Types Packs/Day Years [...] LAB RESULT SCAN PROCEDURE 05/04/2006 12:[address] documented in this encounter Results * DPS CONVERSION - LAB RESULT SCAN PROCEDURE (05/04/2006 12:[address]) Narrative 05/04/2006 12:[address] Ordered by an unspecified provider. us Historical Provider LAB BLOOD ORDERABLES Day l Result documented in this encounter Visit Diagnoses Not on filedocumented in this encounter
--- OUTSIDE RECORDS SUMMARY | 2025-02-21 07:40 | XMS_ITS | Encounter Summary ---
Author Organization [facility] Address [address] [place] [address] Phone Care Team Providers Care Coach Wirer Name Role Phone Unavailable Primary Care Provider Unavailabl e Encounter Details Date Type Department Care Team (Late st Contact Info) Description 03/28/2015 Abstract HISTORICAL CONVERSION [place] [phone] [facility] [place] [phone] Social History Tobacco Use Types Packs/Day Years [...]
--- OUTSIDE RECORDS SUMMARY | 2025-02-21 07:40 | XMS_ITS | Encounter Summary ---
Author Organization [facility] Address [address] [place] [address] Phone Care Team Providers Care Associate Creative Director Name Role Phone Unavailable Primary Care Provider Unavailabl e Encounter Details Date Type Department Care Team (Late st Contact Info) Description 03/13/2015 Legacy Encounter - Labs HISTORICAL CONVERSION [place] [phone], [place] [address] ProviderYoav MD [facility] [place] [phone] Social History Tobacco Use Types Packs/Day Years [...]
--- OUTSIDE RECORDS SUMMARY | 2025-02-21 07:40 | XMS_ITS | Encounter Summary ---
Author Organization [facility]imissy Address [address] [place] [address] Phone Care Team Providers Care Transportation Attendant Name Role Phone Unavailable Primary Care Provider Unavailabl e Encounter Details Date Type Department Care Team (Late st Contact Info) Description 11/06/2006 Legacy Encounter - Labs HISTORICAL CONVERSION [place] [phone], [place] [address] ProviderYoav MD [facility] [place] [address] Social History Tobacco Use Types Packs/Day Years [...] AM CDT Ordered by an unspecified provider. [facility] Provider LAB BLOOD ORDERABLES Day l Result * DPS CONVERSION - LAB RESULT SCAN PROCEDURE (11/06/2006 12:00 AM CDT) Narrative 11/06/2006 12:00 AM CDT Ordered by an unspecified provider. [facility] Provider LAB BLOOD ORDERABLES Day l Result * DPS CONVERSION - LAB RESULT SCAN PROCEDURE (11/06/2006 12:00 AM CDT) Narrative 11/06/2006 12:00 AM CDT Ordered by an unspecified provider. [facility] Provider LAB BLOOD ORDERABLES Day l Result documented in this encounter Visit Diagnoses Not on filedocumented in this encounter
--- OUTSIDE RECORDS SUMMARY | 2025-02-21 07:40 | XMS_ITS | Encounter Summary ---
Author Organization [facility] Address [address] [place] [address] Phone Care Team Providers Care Liquor Department Manager Name Role Phone Unavailable Primary Care Provider Unavailabl e Encounter Details Date Type Department Care Team (Late st Contact Info) Description 07/28/2006 Legacy Encounter - Labs HISTORICAL CONVERSION [place] [phone], [place] [address] ProviderYoav MD [address] [place] [address] Social History Tobacco Use Types Packs/Day Years [...] LAB RESULT SCAN PROCEDURE 07/28/2006 12:00 AM SALES ACCOUNT COORDINATOR DPS CONVERSION - LAB RESULT SCAN PROCEDURE 07/28/2006 12:00 AM SALES ACCOUNT COORDINATOR documented in this encounter Results * DPS CONVERSION - LAB RESULT SCAN PROCEDURE (07/28/2006 12:00 AM SALES ACCOUNT COORDINATOR) Narrative 07/28/2006 12:00 AM SALES ACCOUNT COORDINATOR Ordered by an unspecified provider. Historical Provider LAB BLOOD ORDERABLES Day l Result * DPS CONVERSION - LAB RESULT SCAN PROCEDURE (07/28/2006 12:00 AM SALES ACCOUNT COORDINATOR) Narrative 07/28/2006 12:00 AM SALES ACCOUNT COORDINATOR Ordered by an unspecified provider. Historical Provider LAB BLOOD ORDERABLES Day l Result documented in this encounter Visit Diagnoses Not on filedocumented in this encounter
--- OUTSIDE RECORDS SUMMARY | 2025-02-21 07:40 | XMS_ITS | Encounter Summary ---
Author Organization [facility] Address [address] [place] [address] Phone Care Team Providers Care Quarrying Specialist Name Role Phone Unavailable Primary Care Provider Unavailabl e Encounter Details Date Type Department Care Team (Late st Contact Info) Description 03/09/2014 Legacy Encounter - Labs HISTORICAL CONVERSION [place] [phone], [place] [id number] ProviderYoav MD [facility] [place] [phone] Social History Tobacco Use Types Packs/Day Years [...]
--- OUTSIDE RECORDS SUMMARY | 2025-02-21 07:40 | XMS_ITS | Encounter Summary ---
Author Organization [facility] Address [address] [place] [address] Phone Care Team Providers Care Supply Officer Name Role Phone Unavailable Primary Care Provider Unavailabl e Encounter Details Date Type Department Care Team (Late st Contact Info) Description 03/26/2009 Abstract HISTORICAL CONVERSION [place] [id number] [phone] ProviderYoav MD [facility] [place] [phone] Social History Tobacco Use Types Packs/Day Years [...]
--- OUTSIDE RECORDS SUMMARY | 2025-02-21 07:40 | XMS_ITS | Clinical Summary ---
Author Organization [facility] Address [address] [place] [address] Phone Care Team Providers Care Receiving Associate Store Name Role Phone Unknown, Unknown Primary Care [...] DEPRESSION SCREENING 1976 SMOKING Hx and SMOKELESS TOBACCO SCREENING 1977 HIV ONE-TIME SCREENING (18-6 5 YEARS) 1982 PAP SMEAR 1985 MAMMOGRAM 2004 COLOGUARD 2009 COLONOSCOPY 2009 COLORECTAL CANCER SCREENING 2009 FIT TEST 2009 FOBT 2009 SIGMOIDOSCOPY 2009 VIRTUAL COLONOSCOPY 2009 PNEUMOCOCCAL VACCINES (50+ years) (1 of 1 - PCV) 2014 ZOSTER VACCINES (1 of 2) 2014 Adult Td,Tdap Booster 10/14/2022 10/14/2012 TSH LEVEL 01/30/2023 01/30/2022 INFLUENZA VACCINE (#1) 2024 8, 03/16/2017, 02/20/2012 COVID-19 VACCINE (2023-2 5 season) 2025 RSV VACCINE (1 - 1-dose 75+ series) [...] MEDICARE REPLACEMENT MEDICARE PART A & B [facility] MEDICARE REPLACEMENT MEDICARE PART A & B Member Subscriber Plan / Payer (Ef fective 2020-Present) Name:Fabiana Fraser Member ID:[id number] Relation to Subscriber:Self Name:Fabiana Fraser Subscriber ID:[id number] Payer ID:[id number] Group ID:Not on file Type:Medicare Address: [employer] [address] MEDICARE REPLACEMENT MEDICARE PART A & B MEDICARE REPLACEMENT MEDICARE PART A & B Member Subscriber Plan / Payer (Ef fective 2020-Present) Name:Fabiana Fraser Member ID:[id number] Relation to Subscriber:Self Name:Fabiana Fraser Subscriber ID:[id number] Payer ID:[id number] Group ID:Not on file Type:Medicare Address: [employer] [address] MEDICARE REPLACEMENT [place] [id number] MEDICARE PART A & B Member Subscriber Plan / Payer (Ef fective 2020-Present) Name:Fabiana Fraser Member ID:[id number] Relation to Subscriber:Self Name:Fabiana Fraser Subscriber ID:[id number] Payer ID:[id number] Group ID:Not on file Type:Medicare Address: [employer] [address] MEDICARE REPLACEMENT Care Teams Receiving Associate Store Relationship Specialty Start Date End Date Unknown, Unknown, PCP - General 7/19/22 Additional Source Comments The information contained in this document represents components of the legal health record. It is not the complete legal health record.[facility]
--- OUTSIDE RECORDS SUMMARY | 2025-02-21 07:40 | XMS_ITS | Clinical Summary ---
Author Organization [facility] Address [address] [place] [address] Phone Care Team Providers Care Head Concierge Name Role Phone Unavailable Primary Care Provider [...] Active -Hx Entry 5 Active HYDROcodone-ac etaminophen (Good[place]) 10-325 MG per tablet [place]( 10-325MG Oral 1 as needed ) Active [...] Comments Blood Pressure 122/74 03/27/2015 12:01 AM FITNESS SALES ASSOCIATE Pulse 80 03/27/2015 12:01 AM FITNESS SALES ASSOCIATE Temperature - - Respiratory Rate - - Oxygen Saturation - - Inhaled Oxygen Concentration - - Weight 68.9 kg (152 lb) 03/27/2015 12:01 AM FITNESS SALES ASSOCIATE Height 162.6 cm (5' 4 ) 03/27/2015 12:01 AM FITNESS SALES ASSOCIATE Body Mass Index 26.09 03/27/2015 12:01 AM FITNESS SALES ASSOCIATE Plan of Treatment Not on file Insurance PM [employer]ANCE
--- OUTSIDE RECORDS SUMMARY | 2025-02-21 07:40 | XMS_ITS | Encounter Summary ---
Author Organization [facility] Address [address] [place] [address] Phone Care Team Providers Care Landfill Gas Plant Field Technician Name Role Phone Unavailable Primary Care Provider Unavailabl e Encounter Details Date Type Department Care Team (Late st Contact Info) Description 08/28/2006 Legacy Encounter - Labs HISTORICAL CONVERSION [place] [phone], [place] [address] ProviderYoav MD [facility] [place] [phone] Social History Tobacco Use Types Packs/Day Years [...]
--- OUTSIDE RECORDS SUMMARY | 2025-02-21 07:40 | XMS_ITS | Encounter Summary ---
Author Organization [facility] Address [address] [place] [address] Phone Care Team Providers Care Silo Filler Name Role Phone Unavailable Primary Care Provider Unavailabl e Encounter Details Date Type Department Care Team (Late st Contact Info) Description 01/18/2014 Legacy Encounter - Labs HISTORICAL CONVERSION [place] [address], [place] [address] ProviderYoav MD [facility] [place]riel [place] [phone] Social History Tobacco Use Types Packs/Day Years [...]
--- OUTSIDE RECORDS SUMMARY | 2025-02-21 07:40 | XMS_ITS | Encounter Summary ---
Author Organization [facility] Address [address] [place] [address] Phone Care Team Providers Care Log Loader Helper Name Role Phone Unavailable Primary Care Provider Unavailabl e Encounter Details Date Type Department Care Team (Late st Contact Info) Description 10/05/2008 Legacy Encounter - Labs HISTORICAL CONVERSION [place] [phone], [place] [address] ProviderYoav MD [facility] [place] [phone] Social History Tobacco Use Types Packs/Day Years [...]
--- OUTSIDE RECORDS SUMMARY | 2025-02-21 07:40 | XMS_ITS | Encounter Summary ---
Author Organization [facility] Address [address] [place] [address] Phone Care Team Providers Care Finished Cigar Maker Name Role Phone Unavailable Primary Care Provider Unavailabl e Encounter Details Date Type Department Care Team (Late st Contact Info) Description 02/13/2014 Legacy Encounter - Labs HISTORICAL CONVERSION [place] [phone], [place] [address] ProviderYoav MD [facility] [place] [phone] Social History Tobacco Use Types Packs/Day Years [...]
--- OUTSIDE RECORDS SUMMARY | 2025-02-21 07:40 | XMS_ITS | Encounter Summary ---
Author Organization [facility] Address [address] [place] [address] Phone Care Team Providers Care Ice Puller Name Role Phone Unavailable Primary Care Provider Unavailabl e Encounter Details Date Type Department Care Team (Late st Contact Info) Description 03/23/2014 Legacy Encounter - Labs HISTORICAL CONVERSION [place] [phone], [place] [address] ProviderYoav MD Count includes the [facility] [place] [phone] Social History Tobacco Use Types Packs/Day Years [...]
== END 2025-02-21 07:35 | disposition home or self-care (01) ==
LOC: CF 07:34
PROVIDERS: Visit Provider Anesthesiology
DX: Z13.89 Encounter for screening for other disorder (principal)

== ENCOUNTER 2025-02-28 13:00 | Outpatient (AMB) | payer MEDICARE, SELFPAY ==
--- NOTE | 2025-02-28 13:04 | A.OFFPC_ITS ---
Vital Signs 02/28/25 13:10 Height 5 ft 5 in Weight 187 lb 8 oz BMI 31.2 BP 127/58 L Blood Pressure Location Rt brachial Position Sitting Respiration 16 Pulse 64 Pulse Source Pulse Oximeter Temp 98.2 F Temp Source Oral Pulse Oximetry (%) 97 Oxygen Delivery Method Room Air Intake Visit Reasons: 3 mos HTN, hypothyroidism - see comments Intake Note: patient here for 3month follow up on HTN, hypothyroids Sports [employer] Internship Required: No Is last menstrual period known: No Post menopausal: No Patient : No Allergies sulfa Allergy (Mild, Uncoded 02/28/25 13:18) Hives Medication List - Last Reconciled 02/28/25 by Sunni Browne CNP buprenorphine-naloxone 2-0.5 mg (Suboxone) 1 film sublingual TID cholecalciferol (vitamin D3) (Vitamin D3) 125 mcg PO DAILY 90 days clotrimazole 1% 1 appl topical BID cyanocobalamin (vitamin B-12) (Vitamin B-12) 2,500 mcg sublingual DAILY 30 days diclofenac epolamine 1.3% (Flector) 1 patch transdermal .qd 30 days duloxetine 60 mg PO DAILY 30 days ferrous sulfate 325 mg PO DAILY 30 days gabapentin 300 mg PO TID 30 days hydroxychloroquine (Plaquenil) 200 mg PO DAILY levothyroxine 150 mcg PO DAILY 30 days lidocaine 5% 2 patches topical DAILY meloxicam 7.5 mg PO BID metoprolol succinate ER 12.5 mg PO DAILY omeprazole 20 mg PO DAILY 90 days tizanidine 2 mg PO Q8H PRN 30 days trazodone 150 mg PO BEDTIME PRN Tobacco use date assessed: 02/28/25 Dental Screening Dental Screen Date: 02/28/25 Did you have a dental visit in the last 12 months?: Yes Did you have a dental problem in the last 6 months where you did not have access to dental care?: No Was dental information given to patient?: Patient has dentist HPI HPI Comments History of Present Illness Details 59-year-old female presents for hyperten sivakumar and hypothyroidism follow- up. She admits to taking her medications as prescribed without adverse reactions. She denies acute symptoms at this time. 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 Chronic low back pain Discoid lupus Thyroid disease Raynaud disease Neuropathy Arthritis Anemia Philipp thyroiditis, fibrous variant Polyarticular arthritis Hypertension Osteopenia of both ankles Surgical History History of ankle surgery History of tonsillectomy History of knee replacement Family History Paternal Grandfather Rheumatoid arthritis Lupus Father ALS (amyotrophic lateral sclerosis) Mother Macular degeneration Social History Household Members: None Housing: Apartment Alcohol intake: never Patient Tobacco Use Status: Never used Tobacco e-Cigarette/Vaping Use: Never Used Second Hand Smoke Exposure: No Patient : No service: No Current occupational status: disabled Cognitive needs: No Hearing needs: No Vision needs: No Questionnaire Thrive Questionnaire Date Thrive assessed: 08/22/24 I am a: Patient What is your living situation today?: I have a steady place to live Within the past 12 months, did the food you bought not last and you didn't have the money to get more?: Never true Within the past 12 months, did you worry whether your food would run out before you got money to buy more?: Never true Do you have trouble paying for medicines?: No Do you have trouble getting transportation to medical appointments?: No Do you have trouble paying your heating and electricity bill?: No Do you have trouble taking care of your child, family member or friend?: No Do you have trouble with day-to-day activities such as bathing, preparing meals, shopping, managing finances, etc.?: No Are you currently unemployed and looking for a job?: No Are you interested in more education?: I choose not to answer this question Please select the resources that you would like help with: None Currently or been in a relationship where the following occur: I choose not to answer THRIVE Score: 0 LATRICIA-7 AMB Questionnaire LATRICIA-7 Date LATRICIA - 7 assessed: 08/22/24 Source: Developed by Drs. Corby Peter, Porsha Mata, Jose Harrell and colleagues, with an educational fausto from [employer]. Review of Systems Const Details: Const Denies chills, Denies fatigue, Denies fever(s), Denies headache(s) and Denies weakness ENT Denies dizziness and Denies headache(s) Card Denies chest pain, Denies lightheadedness, Denies dyspnea and Denies other (Pal pitations) Resp Denies cough, Denies dyspnea, Denies wheezing and Denies other ( shortness of breath) GI Denies abdominal pain, Denies melena, Denies hematochezia, Denies change in bowel habits, Denies dyspepsia and Denies nausea Denies hematuria and Denies dysuria Musc Denies abnormal gait, Denies myalgias, Denies arthralgias, Denies numbness and Denies tingling Skin/Breast Denies rash, Denies unusual bruising and Denies wounds Neuro Denies abnormal gait, Denies dizziness, Denies headache(s), Denies memory loss, Denies numbness, Denies Sensory deficit (Neuro), Denies tingling and Denies weakness Psych Denies anxiety, Denies depression, Denies memory loss Endo Denies cold intolerance, Denies fatigue, Denies heat intolerance, Denies polydipsia and Denies polyuria Aller/Immun Denies wheezing Physical exam (Primary Care) Vital Signs: Last Vital Signs Temp 98.2 F 02/28/25 13:10 Pulse 64 02/28/25 13:10 Resp 16 02/28/25 13:10 BP 127/58 L 02/28/25 13:10 Pulse Ox 97 02/28/25 13:10 Oxygen Delivery Method Room Air 02/28/25 13:10 BMI result Body Mass Index 31.2 Tobacco/Smoking Status: Tobacco use Status Tobacco use date assessed 02/28/25 02/28/25 13:13 Patient Tobacco Use Status Never used Tobacco 02/28/25 13:06 e-Cigarette/Vaping Use Never Used 02/28/25 13:06 Thrive Assessment: Date of Thrive Assessment Date Thrive assessed 08/22/24 02/28/25 13:06 Currently or been in a relationship where the following occur: I choose not to answer Const Other: General: no acute distress and well developed Nutritional Appearance: well nourished Orientation/consciousness: patient oriented x3 HENMT Head: Yes normocephalic and Yes atraumatic Eyes General: appearance normal, both eyes and all related structures Pupils: Equal, round and reactive pupils present EOM: EOMs intact bilaterally Resp Effort & Inspection: normal respiratory effort Auscultation: clear to auscultation bilaterally Cardio Rate: regular rate Rhythm: regular rhythm Heart sounds: S1 normal heart sound present, S2 normal heart sound present, no gallops, no murmurs and no rubs GI Palpation (GI): No Abdominal aortic bruit present, Soft to palpation, nontender, No hepatosplenomegaly present and No Rebound tenderness present Auscultation: normal bowel sounds General: Yes no CVA tenderness Back/Spine/Pelvis Back: no CVA tenderness Cervical Spine: cervical ROM normal and No Cervical spine tenderness Thoracic/Lumbar Spine: thoraco-lumbar ROM normal, No pain with thoraco-lumbar ROM, No thoracic spinal tenderness and No lumbar spinal tenderness Extrem General: Yes normal to inspection, No edema and No calf tenderness Skin General: warm and dry. Normal skin color. Normal skin turgor Neuro General: patient oriented x3, gait normal and no focal neuro deficit Cranial nerves: Yes Equal, round and reactive pupils present Cognition (Neuro): normal cognition Gait exam (Neuro): Normal gait present Sensory Exam: No Sensory deficit (Neuro) Psych Appearance: grossly normal Affect: normal affect Attitude: cooperative Thought process: Normal thought process present Coding Level of Care Code Est Pt Level 3 (30817) Diagnoses Primary hypertension I10 Hypertension type: primary hypertension Hypothyroidism E03.9 Vitamin D deficiency E55.9 Assessment & Plan Assessment & Plan (1) Hypertension: Code(s): I10 - Essential (primary) hypertension Category: Medical Qualifiers: Hypertension type: primary hypertension Qualified Code(s): I10 - Essential (primary) hypertension Plan: Blood pressure is 127/58, within goal of less than 140/90. Continue current treatment regimen. Low-sodium diet encouraged. (2) Hypothyroidism: Code(s): E03.9 - Hypothyroidism, unspecified Category: Medical Plan: Continue current treatment regimen. TSH/T4 ordered. She will perform blood work today. Will review results and make changes as needed. Verbalized understanding and agreed with the plan. (3) Vitamin D deficiency: Code(s): E55.9 - Vitamin D deficiency, unspecified Category: Medical Plan: Recent vitamin-D level is normal. Continue current treatment regimen. Verbalized understanding and agreed with the plan. Orders: Orders TSH reflex Free T4 Today E03.9 - Hypothyroidism, unspecified
[2025-02-28 13:10] VITALS: BP 127/58; PULSE 64; RESP 16; TEMP 36.8; O2SAT 97; BMI 31.2
--- OUTSIDE RECORDS SUMMARY | 2025-02-28 15:55 | XMS_ITS | Encounter Summary ---
Author Organization [facility] Address [address] [place] [address] Phone Care Team Providers Care Help Desk Operator Name Role Phone Unavailable Primary Care Provider Unavailabl e Encounter Details Date Type Department Care Team (Late st Contact Info) Description 09/13/2012 Legacy Encounter - Labs HISTORICAL CONVERSION [place] [phone], [place] [address] ProviderYoav MD [facility] [place] [address] Social History Tobacco Use Types Packs/Day Years [...]
--- OUTSIDE RECORDS SUMMARY | 2025-02-28 15:56 | XMS_ITS | Encounter Summary ---
Author Organization [facility] Address [address] [place] [address] Phone Care Team Providers Care Cell Liner Name Role Phone Unavailable Primary Care Provider Unavailabl e Encounter Details Date Type Department Care Team (Late st Contact Info) Description 10/23/2009 Legacy Encounter - Labs HISTORICAL CONVERSION [place] [address], [place] [address] ProviderYoav MD [facility] [place] [phone] Social History Tobacco Use Types Packs/Day Years [...]
--- OUTSIDE RECORDS SUMMARY | 2025-02-28 15:56 | XMS_ITS | Encounter Summary ---
Author Organization [facility] Address [address] [place] [address] Phone Care Team Providers Care Pond Worker Name Role Phone Unavailable Primary Care Provider Unavailabl e Encounter Details Date Type Department Care Team (Late st Contact Info) Description 12/24/2012 Legacy Encounter - Labs HISTORICAL CONVERSION [place] [phone], [place] [address] ProviderYoav MD [facility] [place] [phone] Social History Tobacco Use Types Packs/Day Years [...]
--- OUTSIDE RECORDS SUMMARY | 2025-02-28 15:56 | XMS_ITS | Encounter Summary ---
Author Organization [facility] Address [address] [place] [address] Phone Care Team Providers Care Design Coordinator Name Role Phone Unavailable Primary Care Provider Unavailabl e Encounter Details Date Type Department Care Team (Late st Contact Info) Description 08/07/2012 Legacy Encounter - Labs HISTORICAL CONVERSION [place] [address], [place] [address] ProviderYoav MD [facility] [place] [phone] Social History Tobacco Use Types Packs/Day Years [...]
--- OUTSIDE RECORDS SUMMARY | 2025-02-28 15:56 | XMS_ITS | Encounter Summary ---
Author Organization [facility] Address [address] [place] [address] Phone Care Team Providers Care Plant Taxonomy Teacher Name Role Phone Unavailable Primary Care Provider Unavailabl e Encounter Details Date Type Department Care Team (Late st Contact Info) Description 09/01/2012 Legacy Encounter - Labs HISTORICAL CONVERSION [place] [phone], [place] [address] ProviderYoav MD [facility] [place] [address] Social History Tobacco Use Types Packs/Day Years [...]
--- OUTSIDE RECORDS SUMMARY | 2025-02-28 15:56 | XMS_ITS | Encounter Summary ---
Author Organization [facility] Address [address] [place] [address] Phone Care Team Providers Care Field Spec Name Role Phone Unavailable Primary Care Provider Unavailabl e Encounter Details Date Type Department Care Team (Late st Contact Info) Description 03/29/2009 Legacy Encounter - Labs HISTORICAL CONVERSION [place] [address], [place] [address] ProviderYoav MD [address] [place] [address] Social History Tobacco Use Types Packs/Day Years [...] LAB RESULT SCAN PROCEDURE 03/30/2009 12:00 AM NUCLEAR MEDICINE SUPERVISOR DPS CONVERSION - LAB RESULT SCAN PROCEDURE 03/29/2009 12:00 AM NUCLEAR MEDICINE SUPERVISOR documented in this encounter Results * DPS CONVERSION - LAB RESULT SCAN PROCEDURE (03/30/2009 12:00 AM NUCLEAR MEDICINE SUPERVISOR) Narrative 03/30/2009 12:00 AM NUCLEAR MEDICINE SUPERVISOR Ordered by an unspecified provider. Historical Provider LAB BLOOD ORDERABLES Day l Result * DPS CONVERSION - LAB RESULT SCAN PROCEDURE (03/29/2009 12:00 AM NUCLEAR MEDICINE SUPERVISOR) Narrative 03/29/2009 12:00 AM NUCLEAR MEDICINE SUPERVISOR Ordered by an unspecified provider. Historical Provider LAB BLOOD ORDERABLES Day l Result documented in this encounter Visit Diagnoses Not on filedocumented in this encounter
--- OUTSIDE RECORDS SUMMARY | 2025-02-28 15:56 | XMS_ITS | Clinical Summary ---
Author Organization [facility] Address [address] [place] [address] Phone Care Team Providers Care Greenkeeper Name Role Phone Unavailable Primary Care Provider [...] Active -Hx Entry 5 Active HYDROcodone-ac etaminophen (Chester) 10-325 MG per tablet Chester( 10-325MG Oral 1 as needed ) Active [...] Comments Blood Pressure 122/74 03/27/2015 12:01 AM DOPER Pulse 80 03/27/2015 12:01 AM DOPER Temperature - - Respiratory Rate - - Oxygen Saturation - - Inhaled Oxygen Concentration - - Weight 68.9 kg (152 lb) 03/27/2015 12:01 AM DOPER Height 162.6 cm (5' 4 ) 03/27/2015 12:01 AM DOPER Body Mass Index 26.09 03/27/2015 12:01 AM DOPER Plan of Treatment Not on file Insurance PM INTERFACED INSURANCE
--- OUTSIDE RECORDS SUMMARY | 2025-02-28 15:56 | XMS_ITS | Encounter Summary ---
Author Organization [facility] Address [address] [place] [address] Phone Care Team Providers Care Administration Professional Name Role Phone Unavailable Primary Care Provider Unavailabl e Encounter Details Date Type Department Care Team (Late st Contact Info) Description 09/12/2010 Legacy Encounter - Labs HISTORICAL CONVERSION [place] [address], [place] [address] [place] [address] Social History Tobacco Use Types Packs/Day Years [...]
--- OUTSIDE RECORDS SUMMARY | 2025-02-28 15:56 | XMS_ITS | Encounter Summary ---
Author Organization [facility] Address [address] [place] [address] Phone Care Team Providers Care Hand Almond Blancher Name Role Phone Unavailable Primary Care Provider Unavailabl e Encounter Details Date Type Department Care Team (Late st Contact Info) Description 06/29/2012 Legacy Encounter - Labs HISTORICAL CONVERSION [place] [address], [place] [address] ProviderYoav MD [facility] [place] [phone] Social History Tobacco Use Types Packs/Day Years [...] LAB RESULT SCAN PROCEDURE 06/29/2012 12:00 AM DIRECTOR PEDIATRIC documented in this encounter Results * DPS CONVERSION - LAB RESULT SCAN PROCEDURE (06/29/2012 12:00 AM DIRECTOR PEDIATRIC) Narrative 06/29/2012 12:00 AM DIRECTOR PEDIATRIC Ordered by an unspecified provider. us Historical Provider LAB BLOOD ORDERABLES Day l Result documented in this encounter Visit Diagnoses Not on filedocumented in this encounter
--- OUTSIDE RECORDS SUMMARY | 2025-02-28 15:56 | XMS_ITS | Encounter Summary ---
Author Organization [facility] Address [address] [place] [address] Phone Care Team Providers Care Metal Miner Name Role Phone Unavailable Primary Care Provider Unavailabl e Encounter Details Date Type Department Care Team (Late st Contact Info) Description 06/14/2012 Legacy Encounter - Labs HISTORICAL CONVERSION [place] [address], [place] [address] ProviderYoav MD [facility] [place]David [place] [phone] Social History Tobacco Use Types Packs/Day Years [...] LAB RESULT SCAN PROCEDURE 06/14/2012 12:00 AM WELT SLASHER documented in this encounter Results * DPS CONVERSION - LAB RESULT SCAN PROCEDURE (06/14/2012 12:00 AM WELT SLASHER) Narrative 06/14/2012 12:00 AM WELT SLASHER Ordered by an unspecified provider. us Historical Provider LAB BLOOD ORDERABLES Day l Result documented in this encounter Visit Diagnoses Not on filedocumented in this encounter
--- OUTSIDE RECORDS SUMMARY | 2025-02-28 15:56 | XMS_ITS | Encounter Summary ---
Author Organization [facility] Address [address] [place] [address] Phone Care Team Providers Care Kindergarten Teacher Name Role Phone Unavailable Primary Care Provider Unavailabl e Encounter Details Date Type Department Care Team (Late st Contact Info) Description 01/18/2014 Legacy Encounter - Labs HISTORICAL CONVERSION [place] [address], [place] [address] ProviderYoav MD [facility] [place]Michael [place] [phone] Social History Tobacco Use Types Packs/Day Years [...]
--- OUTSIDE RECORDS SUMMARY | 2025-02-28 15:56 | XMS_ITS | Encounter Summary ---
Author Organization [facility] Address [address] [place] [address] Phone Care Team Providers Care Senior Market Intelligence Consultant Name Role Phone Unavailable Primary Care Provider Unavailabl e Encounter Details Date Type Department Care Team (Late st Contact Info) Description 07/06/2009 Abstract HISTORICAL CONVERSION Katherine [place] [phone] ProviderYoav MD [facility] [place]Kevin [place] [phone] Social History Tobacco Use Types Packs/Day Years [...]
--- OUTSIDE RECORDS SUMMARY | 2025-02-28 15:56 | XMS_ITS | Encounter Summary ---
Author Organization [facility] Address [address] [place] [address] Phone Care Team Providers Care Change Director Name Role Phone Unavailable Primary Care Provider Unavailabl e Encounter Details Date Type Department Care Team (Late st Contact Info) Description 06/06/2013 Abstract HISTORICAL CONVERSION [place] [phone] ProviderYoav MD [facility] [place] [phone] Social History Tobacco Use Types Packs/Day Years [...]
--- OUTSIDE RECORDS SUMMARY | 2025-02-28 15:56 | XMS_ITS | Encounter Summary ---
Author Organization [facility] Address [address] [place] [address] Phone Care Team Providers Care Crop Grain Or Livestock Farm Manager Name Role Phone Unavailable Primary Care Provider Unavailabl e Encounter Details Date Type Department Care Team (Late st Contact Info) Description 06/11/2011 Legacy Encounter - Labs HISTORICAL CONVERSION [place] [address], [place] [address] ProviderYoav MD [facility] [place]enee [place] [phone] Social History Tobacco Use Types Packs/Day Years [...] LAB RESULT SCAN PROCEDURE 06/11/2011 12:00 AM ELECTROPHYSIOLOGY NURSE PRACTITIONER documented in this encounter Results * DPS CONVERSION - LAB RESULT SCAN PROCEDURE (06/11/2011 12:00 AM ELECTROPHYSIOLOGY NURSE PRACTITIONER) Narrative 06/11/2011 12:00 AM ELECTROPHYSIOLOGY NURSE PRACTITIONER Ordered by an unspecified provider. us Historical Provider LAB BLOOD ORDERABLES Day l Result documented in this encounter Visit Diagnoses Not on filedocumented in this encounter
--- OUTSIDE RECORDS SUMMARY | 2025-02-28 15:56 | XMS_ITS | Encounter Summary ---
Author Organization [facility] Address [address] [place] [address] Phone Care Team Providers Care Automatic Lathe Setter Name Role Phone Unavailable Primary Care Provider Unavailabl e Encounter Details Date Type Department Care Team (Late st Contact Info) Description 03/09/2014 Legacy Encounter - Labs HISTORICAL CONVERSION [place] [phone], [place] [address] ProviderYoav MD [facility] [place]Eric [place] [phone] Social History Tobacco Use Types Packs/Day Years [...]
--- OUTSIDE RECORDS SUMMARY | 2025-02-28 15:56 | XMS_ITS | Encounter Summary ---
Author Organization [facility] Address [address] [place] [address] Phone Care Team Providers Care Bisque Placer Name Role Phone Unavailable Primary Care Provider Unavailabl e Encounter Details Date Type Department Care Team (Late st Contact Info) Description 01/20/2013 Legacy Encounter - Labs HISTORICAL CONVERSION [place] [address], [place] [address] ProviderYoav MD [facility] [place]Michelle [place] [phone] Social History Tobacco Use Types Packs/Day Years [...]
--- OUTSIDE RECORDS SUMMARY | 2025-02-28 15:56 | XMS_ITS | Encounter Summary ---
Author Organization [facility] Address [address] [place] [address] Phone Care Team Providers Care Washhouse Worker Name Role Phone Unavailable Primary Care Provider Unavailabl e Encounter Details Date Type Department Care Team (Late st Contact Info) Description 11/01/2013 Abstract HISTORICAL CONVERSION [place] [phone] ProviderYoav MD [facility] AnyRichard [place] [phone] Social History Tobacco Use Types Packs/Day Years [...]
--- OUTSIDE RECORDS SUMMARY | 2025-02-28 15:56 | XMS_ITS | Encounter Summary ---
Author Organization [facility] Address [address] [place] [address] Phone Care Team Providers Care Television Repairer Name Role Phone Unavailable Primary Care Provider Unavailabl e Encounter Details Date Type Department Care Team (Late st Contact Info) Description 06/18/2009 Legacy Encounter - Labs HISTORICAL CONVERSION [place] [address], [place] [address] ProviderYoav MD [facility] [place]George [place] [phone] Social History Tobacco Use Types Packs/Day Years [...] LAB RESULT SCAN PROCEDURE 06/18/2009 12:00 AM COLORING CHECKER documented in this encounter Results * DPS CONVERSION - LAB RESULT SCAN PROCEDURE (06/18/2009 12:00 AM COLORING CHECKER) Narrative 06/18/2009 12:00 AM COLORING CHECKER Ordered by an unspecified provider. us Historical Provider LAB BLOOD ORDERABLES Day l Result documented in this encounter Visit Diagnoses Not on filedocumented in this encounter
--- OUTSIDE RECORDS SUMMARY | 2025-02-28 15:56 | XMS_ITS | Encounter Summary ---
Author Organization [facility] Address [address] [place] [address] Phone Care Team Providers Care Reverberatory Furnace Supervisor Name Role Phone Unavailable Primary Care Provider Unavailabl e Encounter Details Date Type Department Care Team (Late st Contact Info) Description 10/29/2013 Legacy Encounter - Labs HISTORICAL CONVERSION [place] [address], [place] [address] ProviderYoav MD [facility] AnyDarlene [place] [phone] Social History Tobacco Use Types Packs/Day Years [...]
--- OUTSIDE RECORDS SUMMARY | 2025-02-28 15:56 | XMS_ITS | Clinical Summary ---
Author Organization [facility] Address [address] [place] [address] Care Team Providers Care Waste Transportation Technician Name Role Phone Pcp, No Primary [...] patient's age to complete this topic Insurance [facility] MEDICARE [facility] Care Teams Waste Transportation Technician Relationship Specialty Start Date End Date Pcp, No PCP - General General Medicine 05/27/24
--- OUTSIDE RECORDS SUMMARY | 2025-02-28 15:56 | XMS_ITS | Encounter Summary ---
Author Organization [facility] Address [address] [place] [address] Phone Care Team Providers Care Rn Hemo Dialysis Name Role Phone Unavailable Primary Care Provider Unavailabl e Encounter Details Date Type Department Care Team (Late st Contact Info) Description 02/13/2014 Legacy Encounter - Labs HISTORICAL CONVERSION [place] [address], [place] [address] ProviderYoav MD [facility] [place]na [place] [phone] Social History Tobacco Use Types Packs/Day Years [...]
--- OUTSIDE RECORDS SUMMARY | 2025-02-28 15:56 | XMS_ITS | Encounter Summary ---
Author Organization [facility] Address [address] [place] [address] Phone Care Team Providers Care Manager Heart Name Role Phone Unavailable Primary Care Provider Unavailabl e Encounter Details Date Type Department Care Team (Late st Contact Info) Description 07/15/2011 Legacy Encounter - Labs HISTORICAL CONVERSION [place] [address], [place] [address] ProviderYoav MD [facility] [place]Jose [place] [phone] Social History Tobacco Use Types Packs/Day Years [...] LAB RESULT SCAN PROCEDURE 07/15/2011 12:00 AM EDITOR MANAGING NEWSPAPER documented in this encounter Results * DPS CONVERSION - LAB RESULT SCAN PROCEDURE (07/15/2011 12:00 AM EDITOR MANAGING NEWSPAPER) Narrative 07/15/2011 12:00 AM EDITOR MANAGING NEWSPAPER Ordered by an unspecified provider. us Historical Provider LAB BLOOD ORDERABLES Day l Result documented in this encounter Visit Diagnoses Not on filedocumented in this encounter
--- OUTSIDE RECORDS SUMMARY | 2025-02-28 15:56 | XMS_ITS | Encounter Summary ---
Author Organization [facility] Address [address] [place] [address] Phone Care Team Providers Care Baby Sitter Name Role Phone Unavailable Primary Care Provider Unavailabl e Encounter Details Date Type Department Care Team (Late st Contact Info) Description 03/23/2014 Legacy Encounter - Labs HISTORICAL CONVERSION [place] [address], [place] [address] ProviderYoav MD [facility] AnyLinda [place] [phone] Social History Tobacco Use Types Packs/Day Years [...]
--- OUTSIDE RECORDS SUMMARY | 2025-02-28 15:56 | XMS_ITS | Encounter Summary ---
Author Organization [facility] Address [address] [place] [address] Phone Care Team Providers Care Tube Sorter Name Role Phone Unavailable Primary Care Provider Unavailabl e Encounter Details Date Type Department Care Team (Late st Contact Info) Description 11/19/2009 Legacy Encounter - Labs HISTORICAL CONVERSION [place] [phone], [place] [address] ProviderYoav MD [facility] AnyMary [place] [phone] Social History Tobacco Use Types Packs/Day Years [...]
--- OUTSIDE RECORDS SUMMARY | 2025-02-28 15:56 | XMS_ITS | Encounter Summary ---
Author Organization [facility] Address [address] [place] [address] Phone Care Team Providers Care Construction Accountant Name Role Phone Unavailable Primary Care Provider Unavailabl e Encounter Details Date Type Department Care Team (Late st Contact Info) Description 01/09/2014 Legacy Encounter - Labs HISTORICAL CONVERSION [place] [phone], [place] [address] ProviderYoav MD [facility] [place] [address] Social History Tobacco Use Types Packs/Day Years [...]
--- OUTSIDE RECORDS SUMMARY | 2025-02-28 15:56 | XMS_ITS | Encounter Summary ---
Author Organization [facility] Address [address] [place] [address] Phone Care Team Providers Care Electronic Technician Name Role Phone Unavailable Primary Care Provider Unavailabl e Encounter Details Date Type Department Care Team (Late st Contact Info) Description 03/01/2012 Legacy Encounter - Labs HISTORICAL CONVERSION [place] [address], [place] [address] ProviderYoav MD [facility] [place]Brianna [place] [phone] Social History Tobacco Use Types Packs/Day Years [...]
--- OUTSIDE RECORDS SUMMARY | 2025-02-28 15:56 | XMS_ITS | Encounter Summary ---
Author Organization [facility] Address [address] [place] [address] Phone Care Team Providers Care Net Manager Name Role Phone Unavailable Primary Care Provider Unavailabl e Encounter Details Date Type Department Care Team (Late st Contact Info) Description 10/22/2012 Legacy Encounter - Labs HISTORICAL CONVERSION [place] [address], [place] [address] ProviderYoav MD [facility] [place]n [place] [phone] Social History Tobacco Use Types Packs/Day Years [...]
--- OUTSIDE RECORDS SUMMARY | 2025-02-28 15:57 | XMS_ITS | Encounter Summary ---
Author Organization [facility] Address [address] [place] [address] Phone Care Team Providers Care Fence Making Machine Operator Name Role Phone Unavailable Primary Care Provider Unavailabl e Encounter Details Date Type Department Care Team (Late st Contact Info) Description 11/06/2006 Legacy Encounter - Labs HISTORICAL CONVERSION [place] [address], [place] [address] ProviderYoav MD [facility] [place] [address] Social History Tobacco Use Types Packs/Day Years [...] AM CDT Ordered by an unspecified provider. [facility] Provider LAB BLOOD ORDERABLES Day l Result * DPS CONVERSION - LAB RESULT SCAN PROCEDURE (11/06/2006 12:00 AM CDT) Narrative 11/06/2006 12:00 AM CDT Ordered by an unspecified provider. [facility] Provider LAB BLOOD ORDERABLES Day l Result * DPS CONVERSION - LAB RESULT SCAN PROCEDURE (11/06/2006 12:00 AM CDT) Narrative 11/06/2006 12:00 AM CDT Ordered by an unspecified provider. [facility] Provider LAB BLOOD ORDERABLES Day l Result documented in this encounter Visit Diagnoses Not on filedocumented in this encounter
--- OUTSIDE RECORDS SUMMARY | 2025-02-28 15:57 | XMS_ITS | Encounter Summary ---
Author Organization [facility] Address [address] [place] [address] Phone Care Team Providers Care Ladle Cleaner Name Role Phone Unavailable Primary Care Provider Unavailabl e Encounter Details Date Type Department Care Team (Late st Contact Info) Description 01/30/2006 Legacy Encounter - Labs HISTORICAL CONVERSION [place] [address], [place] [address] ProviderYoav MD [facility] [place]Emily [place] [phone] Social History Tobacco Use Types Packs/Day Years [...]
--- OUTSIDE RECORDS SUMMARY | 2025-02-28 15:57 | XMS_ITS | Encounter Summary ---
Author Organization [facility] Address [address] [place] [address] Phone Care Team Providers Care Examination Proctor Name Role Phone Unavailable Primary Care Provider Unavailabl e Encounter Details Date Type Department Care Team (Late st Contact Info) Description 09/18/2008 Legacy Encounter - Labs HISTORICAL CONVERSION [place] [address], [place] [address] ProviderYoav MD [facility] [place]Brenda [place] [phone] Social History Tobacco Use Types Packs/Day Years [...]
--- OUTSIDE RECORDS SUMMARY | 2025-02-28 15:57 | XMS_ITS | Encounter Summary ---
Author Organization [facility] Address [address] [place] [address] Phone Care Team Providers Care Will Call Order Clerk Name Role Phone Unavailable Primary Care Provider Unavailabl e Encounter Details Date Type Department Care Team (Late st Contact Info) Description 01/27/2006 Abstract HISTORICAL CONVERSION Kerry [place] [phone] ProviderYoav MD [facility] AnyLuke [place] [phone] Social History Tobacco Use Types Packs/Day Years [...]
--- OUTSIDE RECORDS SUMMARY | 2025-02-28 15:57 | XMS_ITS | Encounter Summary ---
Author Organization [facility] Address [address] [place] [address] Phone Care Team Providers Care Pharmacy Operations Specialist Name Role Phone Unavailable Primary Care Provider Unavailabl e Encounter Details Date Type Department Care Team (Late st Contact Info) Description 03/27/2015 Clinical Support HISTORICAL [place] [id number], [place] [address] ProviderYoav MD [facility] [place]Alfred [place] [phone] Social History Tobacco Use Types Packs/Day Years [...]
--- OUTSIDE RECORDS SUMMARY | 2025-02-28 15:57 | XMS_ITS | Encounter Summary ---
Author Organization [facility] Address [address] [place] [address] Phone Care Team Providers Care Regional Training Manager Name Role Phone Unavailable Primary Care Provider Unavailabl e Encounter Details Date Type Department Care Team (Late st Contact Info) Description 08/28/2006 Legacy Encounter - Labs HISTORICAL CONVERSION [place] [address], [place] [address] ProviderYoav MD [facility] AnyPaul [place] [phone] Social History Tobacco Use Types Packs/Day Years [...]
--- OUTSIDE RECORDS SUMMARY | 2025-02-28 15:57 | XMS_ITS | Encounter Summary ---
Author Organization [facility] Address [address] [place] [address] Phone Care Team Providers Care Handicrafts Teacher Name Role Phone Unavailable Primary Care Provider Unavailabl e Encounter Details Date Type Department Care Team (Late st Contact Info) Description 08/18/2015 Legacy Encounter - Labs HISTORICAL CONVERSION [place] [address], [place] [address] ProviderYoav MD [facility] AnyJason [place] [phone] Social History Tobacco Use Types Packs/Day Years [...]
--- OUTSIDE RECORDS SUMMARY | 2025-02-28 15:57 | XMS_ITS | Encounter Summary ---
Author Organization [facility] Address [address] [place] [address] Phone Care Team Providers Care Youth Corrections Officer Name Role Phone Unavailable Primary Care Provider Unavailabl e Encounter Details Date Type Department Care Team (Late st Contact Info) Description 08/17/2015 Legacy Encounter - Labs HISTORICAL CONVERSION [place] [phone], [place] [address] ProviderYoav MD [facility] [place]Elizabeth [place] [phone] Social History Tobacco Use Types Packs/Day Years [...]
--- OUTSIDE RECORDS SUMMARY | 2025-02-28 15:57 | XMS_ITS | Encounter Summary ---
Author Organization [facility] Address [address] [place] [address] Phone Care Team Providers Care Seismograph Operator Helper Name Role Phone Unavailable Primary Care Provider Unavailabl e Encounter Details Date Type Department Care Team (Late st Contact Info) Description 10/05/2008 Legacy Encounter - Labs HISTORICAL CONVERSION [place] [address], [place] [address] ProviderYoav MD [facility] AnyFrank [place] [phone] Social History Tobacco Use Types Packs/Day Years [...]
--- OUTSIDE RECORDS SUMMARY | 2025-02-28 15:57 | XMS_ITS | Encounter Summary ---
Author Organization [facility] Address [address] [place] [address] Phone Care Team Providers Care Nut Processing Supervisor Name Role Phone Unavailable Primary Care Provider Unavailabl e Encounter Details Date Type Department Care Team (Late st Contact Info) Description 10/28/2005 Legacy Encounter - Labs HISTORICAL CONVERSION [place] [address], [place] [address] ProviderYoav MD [facility] [place] [address] Social History Tobacco Use Types Packs/Day Years [...]
--- OUTSIDE RECORDS SUMMARY | 2025-02-28 15:57 | XMS_ITS | Encounter Summary ---
Author Organization [facility] Address [address] [place] [address] Phone Care Team Providers Care Manufacturers Agent Name Role Phone Unavailable Primary Care Provider Unavailabl e Encounter Details Date Type Department Care Team (Late st Contact Info) Description 05/04/2006 Legacy Encounter - Labs HISTORICAL CONVERSION [place] [phone], [place] [address] ProviderYoav MD [facility] [place]Tommy [place] [phone] Social History Tobacco Use Types Packs/Day Years [...] LAB RESULT SCAN PROCEDURE 05/04/2006 12:00 AM FIRST MATE documented in this encounter Results * DPS CONVERSION - LAB RESULT SCAN PROCEDURE (05/04/2006 12:00 AM FIRST MATE) Narrative 05/04/2006 12:00 AM FIRST MATE Ordered by an unspecified provider. us Historical Provider LAB BLOOD ORDERABLES Day l Result documented in this encounter Visit Diagnoses Not on filedocumented in this encounter
--- OUTSIDE RECORDS SUMMARY | 2025-02-28 15:57 | XMS_ITS | Encounter Summary ---
Author Organization [facility] Address [address] [place] [address] Phone Care Team Providers Care Patient Care Provider Name Role Phone Unavailable Primary Care Provider Unavailabl e Encounter Details Date Type Department Care Team (Late st Contact Info) Description 03/13/2015 Legacy Encounter - Labs HISTORICAL CONVERSION [place] [address], [place] [address] ProviderYoav MD [facility] [place]Amanda [place] [phone] Social History Tobacco Use Types Packs/Day Years [...]
--- OUTSIDE RECORDS SUMMARY | 2025-02-28 15:57 | XMS_ITS | Encounter Summary ---
Author Organization [facility] Address [address] [place] [address] Phone Care Team Providers Care Front Worker Name Role Phone Unavailable Primary Care Provider Unavailabl e Encounter Details Date Type Department Care Team (Late st Contact Info) Description 03/28/2015 Abstract HISTORICAL CONVERSION [place] [phone] ProviderYoav MD [facility] [place]Ariana [place] [phone] Social History Tobacco Use Types Packs/Day Years [...]
--- OUTSIDE RECORDS SUMMARY | 2025-02-28 15:57 | XMS_ITS | Clinical Summary ---
Author Organization [facility] Address [address] [place] [address] Phone Care Team Providers Care Grinder Set Up Operator Internal Name Role Phone Unknown, Unknown Primary Care [...] (#1) 2024 8, 03/16/2017, 02/20/2012 COVID-19 VACCINE ( - 2024-2 6 season) 2025 RSV VACCINE (1 - 1-dose [...] Payer (Ef fective 2020-Present) Name:Fabiana Fraser Member ID:[id number] Relation to Subscriber:Self Name:Fabiana Fraser Subscriber ID:[id number] Payer ID:[id number] Group ID:Not on file Type:Medicare Address: [facility] [employer] [facility] [address] [place] [phone] [facility] MEDICARE REPLACEMENT MEDICARE PART A & B Member Subscriber Plan / Payer (Ef fective 2020-Present) Name:Fabiana Fraser Member ID:[id number] Relation to Subscriber:Self Name:Fabiana Fraser Subscriber ID:[id number] Payer ID:[id number] Group ID:Not on file Type:Medicare Address: [email or web address] [address] MEDICARE REPLACEMENT MEDICARE PART A & B MEDICARE REPLACEMENT MEDICARE PART A & B Member Subscriber Plan / Payer (Ef fective 2020-Present) Name:Fabiana Fraser Member ID:[id number] Relation to Subscriber:Self Name:Fabiana Fraser Subscriber ID:[id number] Payer ID:[id number] Group ID:Not on file Type:Medicare Address: [email or web address] [address] MEDICARE REPLACEMENT [place] [id number] MEDICARE PART A & B Member Subscriber Plan / Payer (Ef fective 2020-Present) Name:Fabiana Fraser Member ID:[id number] Relation to Subscriber:Self Name:Fabiana Fraser Subscriber ID:[id number] Payer ID:[id number] Group ID:Not on file Type:Medicare Address: [email or web address] [address] MEDICARE REPLACEMENT Care Teams Grinder Set Up Operator Internal Relationship Specialty Start Date End Date Unknown, Unknown, PCP - General 7/19/22 Additional Source Comments The information contained in this document represents components of the legal health record. It is not the complete legal health record.[facility]
--- OUTSIDE RECORDS SUMMARY | 2025-02-28 15:57 | XMS_ITS | Encounter Summary ---
Author Organization [facility] Address [address] [place] [address] Phone Care Team Providers Care Cement Gun Operator Name Role Phone Unavailable Primary Care Provider Unavailabl e Encounter Details Date Type Department Care Team (Late st Contact Info) Description 11/20/2005 Legacy Encounter - Labs HISTORICAL CONVERSION [place] [address], [place] [address] ProviderYoav MD [facility] [place] [phone] Social History Tobacco Use Types Packs/Day Years [...]
--- OUTSIDE RECORDS SUMMARY | 2025-02-28 15:57 | XMS_ITS | Encounter Summary ---
Author Organization [facility] Address [address] [place] [address] Phone Care Team Providers Care Automatic Edger Name Role Phone Unavailable Primary Care Provider Unavailabl e Encounter Details Date Type Department Care Team (Late st Contact Info) Description 04/29/2006 Legacy Encounter - Labs HISTORICAL CONVERSION [place] [phone], [place] [address] ProviderYoav MD [facility] [place] [address] Social History Tobacco Use Types Packs/Day Years [...] LAB RESULT SCAN PROCEDURE 04/29/2006 12:00 AM SPEECH TEACHER DPS CONVERSION - LAB RESULT SCAN PROCEDURE 04/29/2006 12:00 AM SPEECH TEACHER DPS CONVERSION - LAB RESULT SCAN PROCEDURE 04/29/2006 12:00 AM SPEECH TEACHER documented in this encounter Results * DPS CONVERSION - LAB RESULT SCAN PROCEDURE (04/29/2006 12:00 AM SPEECH TEACHER) Narrative 04/29/2006 12:00 AM SPEECH TEACHER Ordered by an unspecified provider. us Historical Provider LAB BLOOD ORDERABLES Day l Result * DPS CONVERSION - LAB RESULT SCAN PROCEDURE (04/29/2006 12:00 AM SPEECH TEACHER) Narrative 04/29/2006 12:00 AM SPEECH TEACHER Ordered by an unspecified provider. us Historical Provider LAB BLOOD ORDERABLES Day l Result * DPS CONVERSION - LAB RESULT SCAN PROCEDURE (04/29/2006 12:00 AM SPEECH TEACHER) Narrative 04/29/2006 12:00 AM SPEECH TEACHER Ordered by an unspecified provider. us Historical Provider LAB BLOOD ORDERABLES Day l Result documented in this encounter Visit Diagnoses Not on filedocumented in this encounter
--- OUTSIDE RECORDS SUMMARY | 2025-02-28 15:57 | XMS_ITS | Encounter Summary ---
Author Organization [facility] Address [address] [place] [address] Phone Care Team Providers Care Jacquard Card Lacer Name Role Phone Unavailable Primary Care Provider Unavailabl e Encounter Details Date Type Department Care Team (Late st Contact Info) Description 07/28/2006 Legacy Encounter - Labs HISTORICAL CONVERSION [place] [phone], [place] [address] ProviderYoav MD [address] [place] [address] Social History Tobacco Use Types Packs/Day Years [...] LAB RESULT SCAN PROCEDURE 07/28/2006 12:00 AM PICKLING OPERATOR DPS CONVERSION - LAB RESULT SCAN PROCEDURE 07/28/2006 12:00 AM PICKLING OPERATOR documented in this encounter Results * DPS CONVERSION - LAB RESULT SCAN PROCEDURE (07/28/2006 12:00 AM PICKLING OPERATOR) Narrative 07/28/2006 12:00 AM PICKLING OPERATOR Ordered by an unspecified provider. Historical Provider LAB BLOOD ORDERABLES Day l Result * DPS CONVERSION - LAB RESULT SCAN PROCEDURE (07/28/2006 12:00 AM PICKLING OPERATOR) Narrative 07/28/2006 12:00 AM PICKLING OPERATOR Ordered by an unspecified provider. Historical Provider LAB BLOOD ORDERABLES Day l Result documented in this encounter Visit Diagnoses Not on filedocumented in this encounter
--- OUTSIDE RECORDS SUMMARY | 2025-02-28 15:57 | XMS_ITS | Encounter Summary ---
Author Organization [facility] Address [address] [place] [address] Phone Care Team Providers Care Electrolysis Engineer Name Role Phone Unavailable Primary Care Provider Unavailabl e Encounter Details Date Type Department Care Team (Late st Contact Info) Description 03/26/2009 Abstract HISTORICAL CONVERSION [place] [id number] [id number] ProviderYoav MD [facility] [place]Vanessa [place] [phone] Social History Tobacco Use Types Packs/Day Years [...]
== END 2025-02-28 13:28 | disposition home or self-care (01) ==
LOC: HO.HMCFM 13:01
PROVIDERS: Visit Provider Nurse Practitioner Family
DX: I10 Essential (primary) hypertension (principal); E03.9 Hypothyroidism, unspecified; E55.9 Vitamin D deficiency, unspecified

== ENCOUNTER 2025-02-28 13:00 | Outpatient (REF) | payer MEDICARE, SELFPAY ==
[2025-02-28 19:34] LABS: Free T4 (Free Thyroxine) 1.12 ng/dL (0.71-1.85)
== END 2025-02-28 13:01 | disposition home or self-care (01) ==
LOC: HO.WFDLDS 13:00
PROVIDERS: Visit Provider Nurse Practitioner Family
DX: I10 Essential (primary) hypertension (principal); E03.9 Hypothyroidism, unspecified; E55.9 Vitamin D deficiency, unspecified
CPT/HCPCS: 36415; 84439; 84443; 99212

== ENCOUNTER 2025-03-07 06:13 | Outpatient (REF) | payer MEDICARE, SELFPAY ==
--- NOTE | ~2025-03-07 | FL_ITS ---
EXAMINATION: FL GUIDANCE ONLY HISTORY: M47.816 - Spondylosis without myelopathy or radiculopathy, lumbar region COMPARISON: None available. TECHNIQUE: Fluoroscopy time: 15.4 seconds. Cumulative Dose: 4.3129 mGy. DAP: 1.5622 Gycm2 Images: 3. FINDINGS: Fluoroscopic spot films of the lumbar spine demonstrate placement of an electrode in the region of the right L4 pedicle. FL/FL guidance in treatment room IMPRESSION: Fluoroscopy during procedure. Please see procedure report for additional information. Electronically signed by: Corby Raymond MD 03/07/2025 03:38 PM EDT
--- OUTSIDE RECORDS SUMMARY | 2025-03-07 06:15 | XMS_ITS | Encounter Summary ---
Author Organization [facility] Address [address] [place] [address] Phone Care Team Providers Care Resourcing Advisor Name Role Phone Unavailable Primary Care Provider Unavailabl e Encounter Details Date Type Department Care Team (Late st Contact Info) Description 01/09/2014 Legacy Encounter - Labs HISTORICAL CONVERSION [place] [address], [place] [address] ProviderYoav MD [facility] [place] [address] Social History Tobacco Use Types Packs/Day Years [...]
--- OUTSIDE RECORDS SUMMARY | 2025-03-07 06:15 | XMS_ITS | Encounter Summary ---
Author Organization [facility] Address [address] [place] [address] Phone Care Team Providers Care Bin Worker Name Role Phone Unavailable Primary Care Provider Unavailabl e Encounter Details Date Type Department Care Team (Late st Contact Info) Description 04/29/2006 Legacy Encounter - Labs HISTORICAL CONVERSION [place] [phone], [place] [address] ProviderYoav MD [facility] [place] [address] Social History Tobacco Use Types Packs/Day Years [...] LAB RESULT SCAN PROCEDURE 04/29/2006 12:00 AM NATURAL RESOURCES ENGINEER DPS CONVERSION - LAB RESULT SCAN PROCEDURE 04/29/2006 12:00 AM NATURAL RESOURCES ENGINEER DPS CONVERSION - LAB RESULT SCAN PROCEDURE 04/29/2006 12:00 AM NATURAL RESOURCES ENGINEER documented in this encounter Results * DPS CONVERSION - LAB RESULT SCAN PROCEDURE (04/29/2006 12:00 AM NATURAL RESOURCES ENGINEER) Narrative 04/29/2006 12:00 AM NATURAL RESOURCES ENGINEER Ordered by an unspecified provider. us Historical Provider LAB BLOOD ORDERABLES Day l Result * DPS CONVERSION - LAB RESULT SCAN PROCEDURE (04/29/2006 12:00 AM NATURAL RESOURCES ENGINEER) Narrative 04/29/2006 12:00 AM NATURAL RESOURCES ENGINEER Ordered by an unspecified provider. us Historical Provider LAB BLOOD ORDERABLES Day l Result * DPS CONVERSION - LAB RESULT SCAN PROCEDURE (04/29/2006 12:00 AM NATURAL RESOURCES ENGINEER) Narrative 04/29/2006 12:00 AM NATURAL RESOURCES ENGINEER Ordered by an unspecified provider. us Historical Provider LAB BLOOD ORDERABLES Day l Result documented in this encounter Visit Diagnoses Not on filedocumented in this encounter
--- OUTSIDE RECORDS SUMMARY | 2025-03-07 06:15 | XMS_ITS | Encounter Summary ---
Author Organization [facility] Address [address] [place] [address] Phone Care Team Providers Care Spa Director Name Role Phone Unavailable Primary Care Provider Unavailabl e Encounter Details Date Type Department Care Team (Late st Contact Info) Description 07/06/2009 Abstract HISTORICAL CONVERSION [place] [phone] ProviderYoav MD [facility] AnyMatthew [place] [phone] Social History Tobacco Use Types Packs/Day Years [...]
--- OUTSIDE RECORDS SUMMARY | 2025-03-07 06:15 | XMS_ITS | Encounter Summary ---
Author Organization [facility] Address [address] [place] [address] Phone Care Team Providers Care Instructional Technologist Name Role Phone Unavailable Primary Care Provider Unavailabl e Encounter Details Date Type Department Care Team (Late st Contact Info) Description 10/23/2009 Legacy Encounter - Labs HISTORICAL CONVERSION [place] [address], [place] [address] ProviderYoav MD [facility] AnyDerrick [place] [phone] Social History Tobacco Use Types Packs/Day Years [...]
--- OUTSIDE RECORDS SUMMARY | 2025-03-07 06:15 | XMS_ITS | Encounter Summary ---
Author Organization [facility] Address [address] [place] [address] Phone Care Team Providers Care Drum Reel Cutter Name Role Phone Unavailable Primary Care Provider Unavailabl e Encounter Details Date Type Department Care Team (Late st Contact Info) Description 06/14/2012 Legacy Encounter - Labs HISTORICAL CONVERSION [place] [phone], [place] [address] ProviderYoav MD [facility] AnyAmy [place] [phone] Social History Tobacco Use Types Packs/Day Years [...] LAB RESULT SCAN PROCEDURE 06/14/2012 12:00 AM TEXTILE SCREEN PRINTER documented in this encounter Results * DPS CONVERSION - LAB RESULT SCAN PROCEDURE (06/14/2012 12:00 AM TEXTILE SCREEN PRINTER) Narrative 06/14/2012 12:00 AM TEXTILE SCREEN PRINTER Ordered by an unspecified provider. us Historical Provider LAB BLOOD ORDERABLES Day l Result documented in this encounter Visit Diagnoses Not on filedocumented in this encounter
--- OUTSIDE RECORDS SUMMARY | 2025-03-07 06:15 | XMS_ITS | Encounter Summary ---
Author Organization [facility] Address [address] [place] [address] Phone Care Team Providers Care Marketing Performance Analyst Name Role Phone Unavailable Primary Care Provider Unavailabl e Encounter Details Date Type Department Care Team (Late st Contact Info) Description 01/18/2014 Legacy Encounter - Labs HISTORICAL CONVERSION [place] [address], [place] [address] ProviderYoav MD On [facility] of [facility] AnyMike [place] [phone] Social History Tobacco Use Types Packs/Day Years [...]
--- OUTSIDE RECORDS SUMMARY | 2025-03-07 06:15 | XMS_ITS | Encounter Summary ---
Author Organization [facility] Address [address] [place] [address] Phone Care Team Providers Care Keyboard Operator Name Role Phone Unavailable Primary Care Provider Unavailabl e Encounter Details Date Type Department Care Team (Late st Contact Info) Description 11/19/2009 Legacy Encounter - Labs HISTORICAL CONVERSION [place] [address], [place] [address] ProviderYoav MD [facility] [place]Alexandra [place] [phone] Social History Tobacco Use Types Packs/Day Years [...]
--- OUTSIDE RECORDS SUMMARY | 2025-03-07 06:15 | XMS_ITS | Encounter Summary ---
Author Organization [facility] Address [address] [place] [address] Phone Care Team Providers Care Pediatric Critical Care Nurse Name Role Phone Unavailable Primary Care Provider Unavailabl e Encounter Details Date Type Department Care Team (Late st Contact Info) Description 09/13/2012 Legacy Encounter - Labs HISTORICAL CONVERSION [place] [address], [place] [address] Provider[place] [address] Social History Tobacco Use Types Packs/Day Years [...]
--- OUTSIDE RECORDS SUMMARY | 2025-03-07 06:15 | XMS_ITS | Encounter Summary ---
Author Organization [facility] Address [address] [place] [address] Phone Care Team Providers Care Stick Feeder Name Role Phone Unavailable Primary Care Provider Unavailabl e Encounter Details Date Type Department Care Team (Late st Contact Info) Description 08/28/2006 Legacy Encounter - Labs HISTORICAL CONVERSION [place] [address], [place] [address] ProviderYoav MD [facility] [place]Connie [place] [phone] Social History Tobacco Use Types Packs/Day Years [...]
--- OUTSIDE RECORDS SUMMARY | 2025-03-07 06:15 | XMS_ITS | Encounter Summary ---
Author Organization [facility] Address [address] [place] [address] Phone Care Team Providers Care Seam Rubber Name Role Phone Unavailable Primary Care Provider Unavailabl e Encounter Details Date Type Department Care Team (Late st Contact Info) Description 11/06/2006 Legacy Encounter - Labs HISTORICAL CONVERSION [place] [address], [place] [address] ProviderYoav MD [facility] [place] [address] Social History Tobacco Use Types Packs/Day Years [...]
--- OUTSIDE RECORDS SUMMARY | 2025-03-07 06:15 | XMS_ITS | Encounter Summary ---
Author Organization [facility] Address [address] [place] [address] Phone Care Team Providers Care Sewage Disposal Worker Name Role Phone Unavailable Primary Care Provider Unavailabl e Encounter Details Date Type Department Care Team (Late st Contact Info) Description 03/27/2015 Clinical Support HISTORICAL [place] [id number], [place] [address] ProviderYoav MD [facility] AnyRick [place] [phone] Social History Tobacco Use Types Packs/Day Years [...]
--- OUTSIDE RECORDS SUMMARY | 2025-03-07 06:15 | XMS_ITS | Encounter Summary ---
Author Organization [facility] Address [address] [place] [address] Phone Care Team Providers Care Analysis Director Name Role Phone Unavailable Primary Care Provider Unavailabl e Encounter Details Date Type Department Care Team (Late st Contact Info) Description 05/04/2006 Legacy Encounter - Labs HISTORICAL CONVERSION [place] [phone], [place] [address] ProviderYoav MD [facility] AnyDanielle [place] [phone] Social History Tobacco Use Types Packs/Day Years [...] LAB RESULT SCAN PROCEDURE 05/04/2006 12:00 AM PRODUCT SAFETY PROFESSIONAL documented in this encounter Results * DPS CONVERSION - LAB RESULT SCAN PROCEDURE (05/04/2006 12:00 AM PRODUCT SAFETY PROFESSIONAL) Narrative 05/04/2006 12:00 AM PRODUCT SAFETY PROFESSIONAL Ordered by an unspecified provider. us Historical Provider LAB BLOOD ORDERABLES Day l Result documented in this encounter Visit Diagnoses Not on filedocumented in this encounter
--- OUTSIDE RECORDS SUMMARY | 2025-03-07 06:15 | XMS_ITS | Encounter Summary ---
Author Organization [facility] Address [address] [place] [address] Phone Care Team Providers Care Cinder Dump Crane Operator Name Role Phone Unavailable Primary Care Provider Unavailabl e Encounter Details Date Type Department Care Team (Late st Contact Info) Description 08/17/2015 Legacy Encounter - Labs HISTORICAL CONVERSION [place] [address], [place] [address] ProviderYoav MD [facility] AnyPaul [place] [phone] Social History Tobacco Use Types Packs/Day Years [...]
--- OUTSIDE RECORDS SUMMARY | 2025-03-07 06:15 | XMS_ITS | Encounter Summary ---
Author Organization [facility] Address [address] [place] [address] Phone Care Team Providers Care Criminal Attorney Name Role Phone Unavailable Primary Care Provider Unavailabl e Encounter Details Date Type Department Care Team (Late st Contact Info) Description 03/23/2014 Legacy Encounter - Labs HISTORICAL CONVERSION [place] [address], [place] [address] ProviderYoav MD [facility] [place]Tracie [place] [phone] Social History Tobacco Use Types Packs/Day Years [...]
--- OUTSIDE RECORDS SUMMARY | 2025-03-07 06:15 | XMS_ITS | Encounter Summary ---
Author Organization [facility] Address [address] [place] [address] Phone Care Team Providers Care Entomology Teacher Name Role Phone Unavailable Primary Care Provider Unavailabl e Encounter Details Date Type Department Care Team (Late st Contact Info) Description 10/29/2013 Legacy Encounter - Labs HISTORICAL CONVERSION [place] [address], [place] [address] ProviderYoav MD [facility] [place] [address] Social History Tobacco Use Types Packs/Day Years [...]
--- OUTSIDE RECORDS SUMMARY | 2025-03-07 06:15 | XMS_ITS | Encounter Summary ---
Author Organization [facility] Address [address] [place] [address] Phone Care Team Providers Care System Consultant Name Role Phone Unavailable Primary Care Provider Unavailabl e Encounter Details Date Type Department Care Team (Late st Contact Info) Description 01/30/2006 Legacy Encounter - Labs HISTORICAL CONVERSION [place] [address], [place] [address] ProviderYoav MD [facility] AnyTeresa [place] [phone] Social History Tobacco Use Types Packs/Day Years [...]
--- OUTSIDE RECORDS SUMMARY | 2025-03-07 06:15 | XMS_ITS | Encounter Summary ---
Author Organization [facility] Address [address] [place] [address] Phone Care Team Providers Care Heel Trimmer Name Role Phone Unavailable Primary Care Provider Unavailabl e Encounter Details Date Type Department Care Team (Late st Contact Info) Description 09/12/2010 Legacy Encounter - Labs HISTORICAL CONVERSION [place] [address], [place] [address] ProviderYoav MD [facility] [place] [address] Social History Tobacco Use Types Packs/Day Years [...]
--- OUTSIDE RECORDS SUMMARY | 2025-03-07 06:15 | XMS_ITS | Encounter Summary ---
Author Organization [facility] Address [address] [place] [address] Phone Care Team Providers Care Real Estate Inspector Name Role Phone Unavailable Primary Care Provider Unavailabl e Encounter Details Date Type Department Care Team (Late st Contact Info) Description 01/27/2006 Abstract HISTORICAL CONVERSION [place] [phone] ProviderYoav MD [facility] AnyJason [place] [phone] Social History Tobacco Use Types Packs/Day Years [...]
--- OUTSIDE RECORDS SUMMARY | 2025-03-07 06:15 | XMS_ITS | Encounter Summary ---
Author Organization [facility] Address [address] [place] [address] Phone Care Team Providers Care Can Coverer Name Role Phone Unavailable Primary Care Provider Unavailabl e Encounter Details Date Type Department Care Team (Late st Contact Info) Description 03/13/2015 Legacy Encounter - Labs HISTORICAL CONVERSION [place] [address], [place] [address] ProviderYoav MD [facility] AnyMichael [place] [phone] Social History Tobacco Use Types Packs/Day Years [...]
--- OUTSIDE RECORDS SUMMARY | 2025-03-07 06:15 | XMS_ITS | Clinical Summary ---
Author Organization [facility] Address [address] [place] [address] Phone Care Team Providers Care Executive Account Manager Name Role Phone Unknown, Unknown Primary Care [...] MEDICARE REPLACEMENT MEDICARE PART A & B [facility] MEDICARE REPLACEMENT MEDICARE PART A & B Member Subscriber Plan / Payer (Ef fective 2020-Present) Name:Fabiana Fraser Member ID:[id number] Relation to Subscriber:Self Name:Fabiana Fraser Subscriber ID:[id number] Payer ID:[id number] Group ID:Not on file Type:Medicare Address: [employer] [address] MEDICARE REPLACEMENT MEDICARE PART A & B MEDICARE REPLACEMENT MEDICARE PART A & B Member Subscriber Plan / Payer (Ef fective 2020-Present) Name:Fabiana Fraser Member ID:[id number] Relation to Subscriber:Self Name:Fabiana Fraser Subscriber ID:[id number] Payer ID:[id number] Group ID:Not on file Type:Medicare Address: [employer] [address] MEDICARE REPLACEMENT [place] [id number] MEDICARE PART A & B Member Subscriber Plan / Payer (Ef fective 2020-Present) Name:Fabiana Fraser Member ID:[id number] Relation to Subscriber:Self Name:Fabiana Fraser Subscriber ID:[id number] Payer ID:[id number] Group ID:Not on file Type:Medicare Address: [employer] [address] MEDICARE REPLACEMENT Care Teams Executive Account Manager Relationship Specialty Start Date End Date Unknown, Unknown, PCP - General 7/19/22 Additional Source Comments The information contained in this document represents components of the legal health record. It is not the complete legal health record.[facility]
--- OUTSIDE RECORDS SUMMARY | 2025-03-07 06:15 | XMS_ITS | Encounter Summary ---
Author Organization [facility] Address [address] [place] [address] Phone Care Team Providers Care Special Needs Child Caregiver Name Role Phone Unavailable Primary Care Provider Unavailabl e Encounter Details Date Type Department Care Team (Late st Contact Info) Description 03/26/2009 Abstract HISTORICAL CONVERSION [place] [id number] [id number] ProviderYoav MD [facility] [place] [phone] Social History Tobacco Use Types Packs/Day Years [...]
--- OUTSIDE RECORDS SUMMARY | 2025-03-07 06:15 | XMS_ITS | Encounter Summary ---
Author Organization [facility] Address [address] [place] [address] Phone Care Team Providers Care Professor Computer Science Name Role Phone Unavailable Primary Care Provider Unavailabl e Encounter Details Date Type Department Care Team (Late st Contact Info) Description 12/24/2012 Legacy Encounter - Labs HISTORICAL CONVERSION [place] [phone], [place] [address] ProviderYoav MD [facility] [place] [phone] Social History Tobacco Use Types Packs/Day Years [...]
--- OUTSIDE RECORDS SUMMARY | 2025-03-07 06:15 | XMS_ITS | Encounter Summary ---
Author Organization [facility] Address [address] [place] [address] Phone Care Team Providers Care Laboratory Engineer Name Role Phone Unavailable Primary Care Provider Unavailabl e Encounter Details Date Type Department Care Team (Late st Contact Info) Description 07/28/2006 Legacy Encounter - Labs HISTORICAL CONVERSION [place] [phone], [place] [address] ProviderYoav MD [address] [place] [address] Social History Tobacco Use Types Packs/Day Years [...] LAB RESULT SCAN PROCEDURE 07/28/2006 12:00 AM FLAG CAR DRIVER DPS CONVERSION - LAB RESULT SCAN PROCEDURE 07/28/2006 12:00 AM FLAG CAR DRIVER documented in this encounter Results * DPS CONVERSION - LAB RESULT SCAN PROCEDURE (07/28/2006 12:00 AM FLAG CAR DRIVER) Narrative 07/28/2006 12:00 AM FLAG CAR DRIVER Ordered by an unspecified provider. Historical Provider LAB BLOOD ORDERABLES Day l Result * DPS CONVERSION - LAB RESULT SCAN PROCEDURE (07/28/2006 12:00 AM FLAG CAR DRIVER) Narrative 07/28/2006 12:00 AM FLAG CAR DRIVER Ordered by an unspecified provider. Historical Provider LAB BLOOD ORDERABLES Day l Result documented in this encounter Visit Diagnoses Not on filedocumented in this encounter
--- OUTSIDE RECORDS SUMMARY | 2025-03-07 06:15 | XMS_ITS | Encounter Summary ---
Author Organization [facility] Address [address] [place] [address] Phone Care Team Providers Care Global President Name Role Phone Unavailable Primary Care Provider Unavailabl e Encounter Details Date Type Department Care Team (Late st Contact Info) Description 11/01/2013 Abstract HISTORICAL CONVERSION [place] [phone] ProviderYoav MD [facility] [place] [phone] Social History Tobacco Use Types Packs/Day Years [...]
--- OUTSIDE RECORDS SUMMARY | 2025-03-07 06:15 | XMS_ITS | Clinical Summary ---
Author Organization [facility] Address [address] [place] [address] Care Team Providers Care Tassel Clipper Name Role Phone Pcp, No Primary Care [...] to complete this topic Insurance [facility] MEDICARE [facility] Care Teams Tassel Clipper Relationship Specialty Start Date End Date Pcp, No PCP - General General Medicine 05/27/24
--- OUTSIDE RECORDS SUMMARY | 2025-03-07 06:15 | XMS_ITS | Encounter Summary ---
Author Organization [facility] Address [address] [place] [address] Phone Care Team Providers Care Boarder Steam Name Role Phone Unavailable Primary Care Provider Unavailabl e Encounter Details Date Type Department Care Team (Late st Contact Info) Description 03/01/2012 Legacy Encounter - Labs HISTORICAL CONVERSION [place] [phone], [place] [address] ProviderYoav MD [facility] [place] [phone] Social History Tobacco Use Types Packs/Day Years [...]
--- OUTSIDE RECORDS SUMMARY | 2025-03-07 06:15 | XMS_ITS | Encounter Summary ---
Author Organization [facility] Address [address] [place] [address] Phone Care Team Providers Care Assembly Member Name Role Phone Unavailable Primary Care Provider Unavailabl e Encounter Details Date Type Department Care Team (Late st Contact Info) Description 03/09/2014 Legacy Encounter - Labs HISTORICAL CONVERSION [place] [phone], [place] [address] ProviderYoav MD [facility] [place] [phone] Social History Tobacco Use Types Packs/Day Years [...]
--- OUTSIDE RECORDS SUMMARY | 2025-03-07 06:15 | XMS_ITS | Encounter Summary ---
Author Organization [facility] Address [address] [place] [address] Phone Care Team Providers Care Barrel Assembler Helper Name Role Phone Unavailable Primary Care Provider Unavailabl e Encounter Details Date Type Department Care Team (Late st Contact Info) Description 08/18/2015 Legacy Encounter - Labs HISTORICAL CONVERSION [place] [phone], [place] [address] ProviderYoav MD [facility] [place] [phone] Social History Tobacco Use Types Packs/Day Years [...]
--- OUTSIDE RECORDS SUMMARY | 2025-03-07 06:15 | XMS_ITS | Encounter Summary ---
Author Organization [facility] Address [address] [place] [address] Phone Care Team Providers Care Senior Applications Developer Name Role Phone Unavailable Primary Care Provider Unavailabl e Encounter Details Date Type Department Care Team (Late st Contact Info) Description 10/05/2008 Legacy Encounter - Labs HISTORICAL CONVERSION [place] [phone], [place] [address] ProviderYoav MD [facility] [place] [phone] Social History Tobacco Use Types Packs/Day Years [...]
--- OUTSIDE RECORDS SUMMARY | 2025-03-07 06:15 | XMS_ITS | Encounter Summary ---
Author Organization [facility] Address [address] [place] [address] Phone Care Team Providers Care Breakfast Attendant Name Role Phone Unavailable Primary Care Provider Unavailabl e Encounter Details Date Type Department Care Team (Late st Contact Info) Description 06/11/2011 Legacy Encounter - Labs HISTORICAL CONVERSION [place] [phone], [place] [address] ProviderYaov MD [facility] [place] [phone] Social History Tobacco Use Types Packs/Day Years [...] LAB RESULT SCAN PROCEDURE 06/11/2011 12:00 AM PRINCIPAL LAW CLERK documented in this encounter Results * DPS CONVERSION - LAB RESULT SCAN PROCEDURE (06/11/2011 12:00 AM PRINCIPAL LAW CLERK) Narrative 06/11/2011 12:00 AM PRINCIPAL LAW CLERK Ordered by an unspecified provider. us Historical Provider LAB BLOOD ORDERABLES Day l Result documented in this encounter Visit Diagnoses Not on filedocumented in this encounter
--- OUTSIDE RECORDS SUMMARY | 2025-03-07 06:15 | XMS_ITS | Encounter Summary ---
Author Organization [facility] Address [address] [place] [address] Phone Care Team Providers Care Regional Extension Service Specialist Name Role Phone Unavailable Primary Care Provider Unavailabl e Encounter Details Date Type Department Care Team (Late st Contact Info) Description 03/29/2009 Legacy Encounter - Labs HISTORICAL CONVERSION [place] [phone], [place] [address] ProviderYoav MD [address] [place] [address] Social History Tobacco Use Types Packs/Day Years [...] LAB RESULT SCAN PROCEDURE 03/30/2009 12:00 AM TECHNICAL SERVICES REP DPS CONVERSION - LAB RESULT SCAN PROCEDURE 03/29/2009 12:00 AM TECHNICAL SERVICES REP documented in this encounter Results * DPS CONVERSION - LAB RESULT SCAN PROCEDURE (03/30/2009 12:00 AM TECHNICAL SERVICES REP) Narrative 03/30/2009 12:00 AM TECHNICAL SERVICES REP Ordered by an unspecified provider. Historical Provider LAB BLOOD ORDERABLES Day l Result * DPS CONVERSION - LAB RESULT SCAN PROCEDURE (03/29/2009 12:00 AM TECHNICAL SERVICES REP) Narrative 03/29/2009 12:00 AM TECHNICAL SERVICES REP Ordered by an unspecified provider. Historical Provider LAB BLOOD ORDERABLES Day l Result documented in this encounter Visit Diagnoses Not on filedocumented in this encounter
--- OUTSIDE RECORDS SUMMARY | 2025-03-07 06:15 | XMS_ITS | Encounter Summary ---
Author Organization [facility] Address [address] [place] [address] Phone Care Team Providers Care Ultrasonic Solderer Name Role Phone Unavailable Primary Care Provider Unavailabl e Encounter Details Date Type Department Care Team (Late st Contact Info) Description 10/22/2012 Legacy Encounter - Labs HISTORICAL CONVERSION [place] [phone], [place] [address] ProviderYoav MD [facility] [place] [phone] Social History Tobacco Use Types Packs/Day Years [...]
--- OUTSIDE RECORDS SUMMARY | 2025-03-07 06:15 | XMS_ITS | Encounter Summary ---
Author Organization [facility] Address [address] [place] [address] Phone Care Team Providers Care Infantry Operations Specialist Name Role Phone Unavailable Primary Care Provider Unavailabl e Encounter Details Date Type Department Care Team (Late st Contact Info) Description 09/01/2012 Legacy Encounter - Labs HISTORICAL CONVERSION [place] [address], [place] [address] ProviderYoav MD [facility] [place] [address] Social History Tobacco Use Types Packs/Day Years [...]
--- OUTSIDE RECORDS SUMMARY | 2025-03-07 06:15 | XMS_ITS | Encounter Summary ---
Author Organization [facility] Address [address] [place] [address] Phone Care Team Providers Care Furnace Tapper Name Role Phone Unavailable Primary Care Provider Unavailabl e Encounter Details Date Type Department Care Team (Late st Contact Info) Description 07/15/2011 Legacy Encounter - Labs HISTORICAL CONVERSION [place] [phone], [place] [address] [facility]Yoav [facility] [place] [phone] Social History Tobacco Use Types Packs/Day Years [...] LAB RESULT SCAN PROCEDURE 07/15/2011 12:00 AM LACE ROLLER documented in this encounter Results * DPS CONVERSION - LAB RESULT SCAN PROCEDURE (07/15/2011 12:00 AM LACE ROLLER) Narrative 07/15/2011 12:00 AM LACE ROLLER Ordered by an unspecified provider. us Historical Provider LAB BLOOD ORDERABLES Day l Result documented in this encounter Visit Diagnoses Not on filedocumented in this encounter
--- OUTSIDE RECORDS SUMMARY | 2025-03-07 06:15 | XMS_ITS | Encounter Summary ---
Author Organization [facility] Address [address] [place] [address] Phone Care Team Providers Care Nailer Operator Name Role Phone Unavailable Primary Care Provider Unavailabl e Encounter Details Date Type Department Care Team (Late st Contact Info) Description 06/29/2012 Legacy Encounter - Labs HISTORICAL CONVERSION [place] [phone], [place] [address] ProviderYoav MD [facility] [place] [phone] Social History Tobacco Use Types Packs/Day Years [...] LAB RESULT SCAN PROCEDURE 06/29/2012 12:00 AM PENOLOGY TEACHER documented in this encounter Results * DPS CONVERSION - LAB RESULT SCAN PROCEDURE (06/29/2012 12:00 AM PENOLOGY TEACHER) Narrative 06/29/2012 12:00 AM PENOLOGY TEACHER Ordered by an unspecified provider. us Historical Provider LAB BLOOD ORDERABLES Day l Result documented in this encounter Visit Diagnoses Not on filedocumented in this encounter
--- OUTSIDE RECORDS SUMMARY | 2025-03-07 06:15 | XMS_ITS | Encounter Summary ---
Author Organization [facility] Address [address] [place] [address] Phone Care Team Providers Care Pantograph Machine Operator Name Role Phone Unavailable Primary Care Provider Unavailabl e Encounter Details Date Type Department Care Team (Late st Contact Info) Description 03/28/2015 Abstract HISTORICAL CONVERSION [place] [phone] ProviderYoav MD [facility] [place] [phone] Social History Tobacco Use Types Packs/Day Years [...]
--- OUTSIDE RECORDS SUMMARY | 2025-03-07 06:15 | XMS_ITS | Encounter Summary ---
Author Organization [facility] Address [address] [place] [address] Phone Care Team Providers Care Television Equipment Operator Name Role Phone Unavailable Primary Care Provider Unavailabl e Encounter Details Date Type Department Care Team (Late st Contact Info) Description 01/20/2013 Legacy Encounter - Labs HISTORICAL CONVERSION [place] [phone], [place] [address] ProviderYoav MD [facility] [place] [phone] Social History Tobacco Use Types Packs/Day Years [...]
--- OUTSIDE RECORDS SUMMARY | 2025-03-07 06:15 | XMS_ITS | Encounter Summary ---
Author Organization [facility] Address [address] [place] [address] Phone Care Team Providers Care Chief Investment Officer Name Role Phone Unavailable Primary Care Provider Unavailabl e Encounter Details Date Type Department Care Team (Late st Contact Info) Description 11/20/2005 Legacy Encounter - Labs HISTORICAL CONVERSION [place] [address], [place] [address] ProviderYoav MD [facility] [place] [address] Social History Tobacco Use Types Packs/Day Years [...]
--- OUTSIDE RECORDS SUMMARY | 2025-03-07 06:15 | XMS_ITS | Clinical Summary ---
Author Organization [facility] Address [address] [place] [address] Phone Care Team Providers Care Skates Operator Name Role Phone Unavailable Primary Care [...] Active -Hx Entry 5 Active HYDROcodone-ac etaminophen (Hitchcock) 10-325 MG per tablet Hitchcock( 10-325MG Oral 1 as needed ) Active [...] Comments Blood Pressure 122/74 03/27/2015 12:01 AM FINANCE PROFESSOR Pulse 80 03/27/2015 12:01 AM FINANCE PROFESSOR Temperature - - Respiratory Rate - - Oxygen Saturation - - Inhaled Oxygen Concentration - - Weight 68.9 kg (152 lb) 03/27/2015 12:01 AM FINANCE PROFESSOR Height 162.6 cm (5' 4 ) 03/27/2015 12:01 AM FINANCE PROFESSOR Body Mass Index 26.09 03/27/2015 12:01 AM FINANCE PROFESSOR Plan of Treatment Not on file Insurance [employer]
--- OUTSIDE RECORDS SUMMARY | 2025-03-07 06:15 | XMS_ITS | Encounter Summary ---
Author Organization [facility] Address [address] [place] [address] Phone Care Team Providers Care Customs Entry Clerk Name Role Phone Unavailable Primary Care Provider Unavailabl e Encounter Details Date Type Department Care Team (Late st Contact Info) Description 06/06/2013 Abstract HISTORICAL CONVERSION [place] [phone] ProviderYoav MD [facility] [place] [phone] Social History Tobacco Use Types Packs/Day Years [...]
--- OUTSIDE RECORDS SUMMARY | 2025-03-07 06:15 | XMS_ITS | Encounter Summary ---
Author Organization [facility] Address [address] [place] [address] Phone Care Team Providers Care Manufacturing Technologist Name Role Phone Unavailable Primary Care Provider Unavailabl e Encounter Details Date Type Department Care Team (Late st Contact Info) Description 10/28/2005 Legacy Encounter - Labs HISTORICAL CONVERSION [place] [address], [place] [address] ProviderYo[place] [address] Social History Tobacco Use Types Packs/Day Years [...]
--- OUTSIDE RECORDS SUMMARY | 2025-03-07 06:15 | XMS_ITS | Encounter Summary ---
Author Organization [facility] Address [address] [place] [address] Phone Care Team Providers Care Project Management Professional Name Role Phone Unavailable Primary Care Provider Unavailabl e Encounter Details Date Type Department Care Team (Late st Contact Info) Description 02/13/2014 Legacy Encounter - Labs HISTORICAL CONVERSION [place] [address], [place] [address] ProviderYoav MD [facility] [place] [phone] Social History Tobacco Use Types Packs/Day Years [...]
--- OUTSIDE RECORDS SUMMARY | 2025-03-07 06:15 | XMS_ITS | Encounter Summary ---
Author Organization [facility] Address [address] [place] [address] Phone Care Team Providers Care Aed Trainer Name Role Phone Unavailable Primary Care Provider Unavailabl e Encounter Details Date Type Department Care Team (Late st Contact Info) Description 06/18/2009 Legacy Encounter - Labs HISTORICAL CONVERSION [place] [address], [place] [address] ProviderYoav MD [facility] [place] [phone] Social History Tobacco Use Types Packs/Day Years [...] LAB RESULT SCAN PROCEDURE 06/18/2009 12:00 AM TAPPER HAND documented in this encounter Results * DPS CONVERSION - LAB RESULT SCAN PROCEDURE (06/18/2009 12:00 AM TAPPER HAND) Narrative 06/18/2009 12:00 AM TAPPER HAND Ordered by an unspecified provider. us Historical Provider LAB BLOOD ORDERABLES Day l Result documented in this encounter Visit Diagnoses Not on filedocumented in this encounter
--- OUTSIDE RECORDS SUMMARY | 2025-03-07 06:15 | XMS_ITS | Encounter Summary ---
Author Organization [facility] Address [address] [place] [address] Phone Care Team Providers Care Headrig Sawyer Name Role Phone Unavailable Primary Care Provider Unavailabl e Encounter Details Date Type Department Care Team (Late st Contact Info) Description 09/18/2008 Legacy Encounter - Labs HISTORICAL CONVERSION [place] [phone], [place] [address] ProviderYoav MD [facility] [place] [phone] Social History Tobacco Use Types Packs/Day Years [...]
--- OUTSIDE RECORDS SUMMARY | 2025-03-07 06:15 | XMS_ITS | Encounter Summary ---
Author Organization [facility] Address [address] [place] [address] Phone Care Team Providers Care Saddle Stitcher Name Role Phone Unavailable Primary Care Provider Unavailabl e Encounter Details Date Type Department Care Team (Late st Contact Info) Description 08/07/2012 Legacy Encounter - Labs HISTORICAL CONVERSION [place] [phone], [place] [address] ProviderYoav MD [facility] [place] [phone] Social History Tobacco Use Types Packs/Day Years [...] provider. us Historical Provider LAB BLOOD ORDERABLES Ady l Result documented in this encounter Visit Diagnoses Not on filedocumented in this encounter
== END 2025-03-07 06:14 | disposition home or self-care (01) ==
LOC: CF 06:13
PROVIDERS: Visit Provider Anesthesiology
DX: M47.816 Spondylosis without myelopathy or radiculopathy, lumbar region (principal)
CPT/HCPCS: 64555; 64590; C1778; J2003

== ENCOUNTER 2025-03-07 07:53 | Outpatient (AMB) | payer MEDICARE, SELFPAY ==
[2025-03-07 07:55] VITALS: BP 136/69; PULSE 75; RESP 16; O2SAT 93; BMI 31.3
--- NOTE | 2025-03-07 07:55 | A.OFFVIS_ITS ---
Vital Signs 03/07/25 07:55 03/07/25 08:45 Height 5 ft 5 in Weight 188 lb BMI 31.3 BP 136/69 134/68 Blood Pressure Location Lt brachial Lt brachial Position Sitting Sitting Respiration 16 16 Pulse 75 69 Pulse Source Pulse Oximeter Pulse Oximeter Pulse Oximetry (%) 93 96 Oxygen Delivery Method Room Air Room Air Intake Visit Reasons: Right Sprint PNS L4 Allergies sulfa Allergy (Mild, Uncoded 02/28/25 13:18) Hives [facility] Medical History Opioid use disorder Osteoporosis senior living current use of immunosuppressive drug Chronic low back pain Discoid lupus Thyroid disease Raynaud disease Neuropathy Arthritis Anemia Philipp thyroiditis, fibrous variant Polyarticular arthritis Hypertension Osteopenia of both ankles Surgical History History of ankle surgery History of tonsillectomy History of knee replacement Family History Paternal Grandfather Rheumatoid arthritis Lupus Father ALS (amyotrophic lateral sclerosis) Mother Macular degeneration Social History Household Members: None Housing: Apartment Alcohol intake: never Patient Tobacco Use Status: Never used Tobacco e-Cigarette/Vaping Use: Never Used Second Hand Smoke Exposure: No service: No Current occupational status: disabled Cognitive needs: No Hearing needs: No Vision needs: No Physical Exam Vital Signs: Last Vital Signs Pulse 69 03/07/25 08:45 Resp 16 03/07/25 08:45 BP 134/68 03/07/25 08:45 Pulse Ox 96 03/07/25 08:45 Oxygen Delivery Method Room Air 03/07/25 08:45 BMI result Body Mass Index 31.3 Assessment & Plan Assessment & Plan (1) Lumbar spondylosis: Code(s): M47.816 - Spondylosis without myelopathy or radiculopathy, lumbar region Category: Medical Plan Percutaneous implantation of peripheral nerve stimulation Sprint system right L4. the risks, benefits and alternatives were discussed with the patient and informed consent was obtained, patient was placed in the prone position and padded to foster comfort. Time out was performed delineating correct site and side of the procedure , name and of the patient, patient participated in time out procedure. Theupper back and posterior neck of the patient was prepped with ChloraPrep and draped with sterile self adhesive utility towels. C-arm was brought over the operating field and clear picture of the L4 lamina on the right was delineated on the screen. The upper central portion of the lamina was chosen as a target of the needle tip insertion . After identifying and marking the intended target, the skin around the planned entry point and the subcutaneous tissues were injected with local anesthetic forming skin wheal.. A percutaneous sleeve and stimulating probe lead introduction system were assembled, inserted and advanced through the skin wheal to the point of interest under C-arm viewL right L4 lamina., the introducer needle was deliv ered to a location in proximity to the nerve. Multiple stimulation parameters were used to deliver stimulation to the nerve in concert with stimulating at multiple positions around the nerve. The nerve target acquisition was confirmed noting generation of in the corresponding to the nerve being stimulated. Various electrical parameter combinations were tested, and the lead location was adjusted (physically relocated) until the patient indicated overlapping the distribution of the patient?s typical region of pain. The stimulating probe was removed from the introducer and a percutaneous lead was guided through the needle and delivered to a location in similar proximity to the nerve. Final location was verified with electrical stimulation. The introducer needle was removed, and the exposed end of the percutaneous lead was attached to an external stimulator unit. At the end of the case various electrical parameter combinations were again tested until the patient indicated paresthesia or muscle tension overlapping the distribution of the patient?s typical region of pain. After confirming that lead impedance was in the normal range, the external unit was detached, the needle was removed, and the lead was anchored at the skin. The leads were threaded into the connector block and electrical continuity and desired patient response was confirmed. The connector block was attached to the external stimulator unit. The site was covered with a sterile occlusive dressing and a image was taken to document final placement. Upon completion of the procedure the patient was taken outside the OR where she recovered uneventfully she went home without immediate complications. Orders: Orders FL guidance in treatment room Today M47.816 - Spondylosis without myelopathy or radiculopathy, lumbar region Coding Level of Care Code Procedure Only Diagnoses Lumbar spondylosis M47.816
[2025-03-07 08:45] VITALS: BP 134/68; PULSE 69; RESP 16; O2SAT 96
== END 2025-03-07 09:03 | disposition home or self-care (01) ==
LOC: HO.PMCPRC 07:53
PROVIDERS: Visit Provider Anesthesiology
DX: M47.816 Spondylosis without myelopathy or radiculopathy, lumbar region (principal)
CPT/HCPCS: 64555; 64590

== ENCOUNTER 2025-03-24 15:52 | Outpatient (AMB) | payer MEDICARE, SELFPAY ==
--- OUTSIDE RECORDS SUMMARY | 2025-03-24 15:55 | XMS_ITS | Encounter Summary ---
Author Organization [facility] Address [address] [place] [address] Phone Care Team Providers Care Potato Spotter Name Role Phone Unavailable Primary Care Provider Unavailabl e Encounter Details Date Type Department Care Team (Late st Contact Info) Description 09/01/2012 Legacy Encounter - Labs HISTORICAL CONVERSION [place] [phone], [place] [address] ProviderYoav MD [facility] [place] [address] Social History Tobacco Use Types Packs/Day Years [...]
--- OUTSIDE RECORDS SUMMARY | 2025-03-24 15:55 | XMS_ITS | Encounter Summary ---
Author Organization [facility] Address [address] [place] [address] Phone Care Team Providers Care Associate Pastor Name Role Phone Unavailable Primary Care Provider Unavailabl e Encounter Details Date Type Department Care Team (Late st Contact Info) Description 01/20/2013 Legacy Encounter - Labs HISTORICAL CONVERSION [place] [phone], [place] [address] ProviderYoav MD [facility] [place] [phone] Social History Tobacco Use Types Packs/Day Years [...]
--- OUTSIDE RECORDS SUMMARY | 2025-03-24 15:55 | XMS_ITS | Encounter Summary ---
Author Organization [facility] Address [address] [place] [address] Phone Care Team Providers Care Information Technology Project Manager Name Role Phone Unavailable Primary Care Provider Unavailabl e Encounter Details Date Type Department Care Team (Late st Contact Info) Description 09/13/2012 Legacy Encounter - Labs HISTORICAL CONVERSION [place] [phone], [place] [address] ProviderYoav MD [facility] [place] [address] Social History Tobacco Use Types Packs/Day Years [...]
--- OUTSIDE RECORDS SUMMARY | 2025-03-24 15:55 | XMS_ITS | Encounter Summary ---
Author Organization [facility] Address [address] [place] [address] Phone Care Team Providers Care Dining Room Tables Set Up Attendant Name Role Phone Unavailable Primary Care Provider Unavailabl e Encounter Details Date Type Department Care Team (Late st Contact Info) Description 08/07/2012 Legacy Encounter - Labs HISTORICAL CONVERSION [place] [phone], [place] [address] ProviderYoav MD [facility] [place] [phone] Social History Tobacco Use Types Packs/Day Years [...]
--- OUTSIDE RECORDS SUMMARY | 2025-03-24 15:55 | XMS_ITS | Encounter Summary ---
Author Organization [facility] Address [address] [place] [address] Phone Care Team Providers Care Decorator Store Name Role Phone Unavailable Primary Care Provider Unavailabl e Encounter Details Date Type Department Care Team (Late st Contact Info) Description 12/24/2012 Legacy Encounter - Labs HISTORICAL CONVERSION [place] [phone], [place] [address] ProviderYoav MD [facility] [place]Edward [place] [phone] Social History Tobacco Use Types Packs/Day Years [...]
--- OUTSIDE RECORDS SUMMARY | 2025-03-24 15:55 | XMS_ITS | Encounter Summary ---
Author Organization [facility] Address [address] [place] [address] Phone Care Team Providers Care Bread Panner Name Role Phone Unavailable Primary Care Provider Unavailabl e Encounter Details Date Type Department Care Team (Late st Contact Info) Description 06/29/2012 Legacy Encounter - Labs HISTORICAL CONVERSION [place] [phone], [place] [address] ProviderYoav MD [facility] [place] [phone] Social History Tobacco Use Types Packs/Day Years [...] LAB RESULT SCAN PROCEDURE 06/29/2012 12:00 AM OUTSIDE SALES CONSULTANT documented in this encounter Results * DPS CONVERSION - LAB RESULT SCAN PROCEDURE (06/29/2012 12:00 AM OUTSIDE SALES CONSULTANT) Narrative 06/29/2012 12:00 AM OUTSIDE SALES CONSULTANT Ordered by an unspecified provider. us Historical Provider LAB BLOOD ORDERABLES Day l Result documented in this encounter Visit Diagnoses Not on filedocumented in this encounter
--- OUTSIDE RECORDS SUMMARY | 2025-03-24 15:55 | XMS_ITS | Encounter Summary ---
Author Organization [facility] Address [address] [place] [address] Phone Care Team Providers Care Residential Glazier Name Role Phone Unavailable Primary Care Provider Unavailabl e Encounter Details Date Type Department Care Team (Late st Contact Info) Description 06/06/2013 Abstract HISTORICAL CONVERSION [place] [phone] ProviderYoav MD [facility] [place] [phone] Social History Tobacco Use Types Packs/Day Years [...]
--- OUTSIDE RECORDS SUMMARY | 2025-03-24 15:55 | XMS_ITS | Clinical Summary ---
Author Organization [facility] Address [address] [place] [address] Care Team Providers Care Rod Placer Name Role Phone Pcp, No Primary Care [...] (Ages 21-65) 1985 Mammogram 2004 Colonoscopy 2009 RSV Vaccine 50 years and older and Patients (1 - Risk 50-74 years 1-dose series) 2014 Influenza Vaccine 2024 02/26/2018, 03/16/2017, 02/20/2012 Hepatitis B Vaccines Aged Out No long er eligible based on patient's age to complete this topic Insurance [employer] [place] MEDICARE [facility] Care Teams Rod Placer Relationship Specialty Start Date End Date Pcp, No PCP - General General Medicine 05/27/24
--- OUTSIDE RECORDS SUMMARY | 2025-03-24 15:56 | XMS_ITS | Encounter Summary ---
Author Organization [facility] Address [address] [place] [address] Phone Care Team Providers Care Sed Special Education Teacher Name Role Phone Unavailable Primary Care Provider Unavailabl e Encounter Details Date Type Department Care Team (Late st Contact Info) Description 08/28/2006 Legacy Encounter - Labs HISTORICAL CONVERSION [place] [phone], [place] [address] ProviderYoav MD [facility] [place] [phone] Social History Tobacco Use Types Packs/Day Years [...]
--- OUTSIDE RECORDS SUMMARY | 2025-03-24 15:56 | XMS_ITS | Encounter Summary ---
Author Organization [facility] Address [address] [place] [address] Phone Care Team Providers Care Photoengraving Machine Operator/Tender Name Role Phone Unavailable Primary Care Provider Unavailabl e Encounter Details Date Type Department Care Team (Late st Contact Info) Description 11/19/2009 Legacy Encounter - Labs HISTORICAL CONVERSION [place] [phone], [place] [address] ProviderYoav MD [facility] [place] [phone] Social History Tobacco Use Types Packs/Day Years [...]
--- OUTSIDE RECORDS SUMMARY | 2025-03-24 15:56 | XMS_ITS | Encounter Summary ---
Author Organization [facility] Address [address] [place] [address] Phone Care Team Providers Care Registered Nurse Cardiac Name Role Phone Unavailable Primary Care Provider Unavailabl e Encounter Details Date Type Department Care Team (Late st Contact Info) Description 09/18/2008 Legacy Encounter - Labs HISTORICAL CONVERSION [place] [phone], [place] [address] ProviderYoav MD [facility] [place] [phone] Social History Tobacco Use Types Packs/Day Years [...]
--- OUTSIDE RECORDS SUMMARY | 2025-03-24 15:56 | XMS_ITS | Encounter Summary ---
Author Organization [facility] Address [address] [place] [address] Phone Care Team Providers Care Transportation Job Titles Name Role Phone Unavailable Primary Care Provider Unavailabl e Encounter Details Date Type Department Care Team (Late st Contact Info) Description 03/27/2015 Clinical Support HISTORICAL [id number] [address] ProviderYoav MD [facility] [place] [phone] Social History Tobacco Use Types Packs/Day Years [...]
--- OUTSIDE RECORDS SUMMARY | 2025-03-24 15:56 | XMS_ITS | Encounter Summary ---
Author Organization [facility] Address [address] [place] [address] Phone Care Team Providers Care Rivet Hole Machine Operator Name Role Phone Unavailable Primary Care Provider Unavailabl e Encounter Details Date Type Department Care Team (Late st Contact Info) Description 08/18/2015 Legacy Encounter - Labs HISTORICAL CONVERSION [place]e [place] [phone], [place] [address] ProviderYoav MD [facility] [place] [phone] Social History Tobacco Use Types Packs/Day Years [...]
--- OUTSIDE RECORDS SUMMARY | 2025-03-24 15:56 | XMS_ITS | Encounter Summary ---
Author Organization [facility] Address [address] [place] [address] Phone Care Team Providers Care Food Safety Field Specialist Name Role Phone Unavailable Primary Care Provider Unavailabl e Encounter Details Date Type Department Care Team (Late st Contact Info) Description 10/22/2012 Legacy Encounter - Labs HISTORICAL CONVERSION [place]lee [place] [phone], [place] [address] ProviderYoav MD [facility] [place] [phone] Social History Tobacco Use Types Packs/Day Years [...]
--- OUTSIDE RECORDS SUMMARY | 2025-03-24 15:56 | XMS_ITS | Encounter Summary ---
Author Organization [facility] Address [address] [place] [address] Phone Care Team Providers Care Communications Specialist Name Role Phone Unavailable Primary Care Provider Unavailabl e Encounter Details Date Type Department Care Team (Late st Contact Info) Description 01/09/2014 Legacy Encounter - Labs HISTORICAL CONVERSION [place] [phone], [place] [address] ProviderYoav MD [facility] [place] [address] Social History Tobacco Use Types Packs/Day Years [...]
--- OUTSIDE RECORDS SUMMARY | 2025-03-24 15:56 | XMS_ITS | Encounter Summary ---
Author Organization [facility] Address [address] [place] [address] Phone Care Team Providers Care Psych Tech Name Role Phone Unavailable Primary Care Provider Unavailabl e Encounter Details Date Type Department Care Team (Late st Contact Info) Description 07/06/2009 Abstract HISTORICAL CONVERSION Katherine [place] [phone] ProviderYoav MD [facility] [place] [phone] Social History Tobacco Use Types Packs/Day Years [...]
--- OUTSIDE RECORDS SUMMARY | 2025-03-24 15:56 | XMS_ITS | Encounter Summary ---
Author Organization [facility] Address [address] [place] [address] Phone Care Team Providers Care Auditor Tax Name Role Phone Unavailable Primary Care Provider Unavailabl e Encounter Details Date Type Department Care Team (Late st Contact Info) Description 05/04/2006 Legacy Encounter - Labs HISTORICAL CONVERSION [place] [phone], [place] [address] ProviderYoav MD [facility] [place] [phone] Social History Tobacco Use Types Packs/Day Years [...] LAB RESULT SCAN PROCEDURE 05/04/2006 12:00 AM CAR SALESMAN documented in this encounter Results * DPS CONVERSION - LAB RESULT SCAN PROCEDURE (05/04/2006 12:00 AM CAR SALESMAN) Narrative 05/04/2006 12:00 AM CAR SALESMAN Ordered by an unspecified provider. us Historical Provider LAB BLOOD ORDERABLES Day l Result documented in this encounter Visit Diagnoses Not on filedocumented in this encounter
--- OUTSIDE RECORDS SUMMARY | 2025-03-24 15:56 | XMS_ITS | Encounter Summary ---
Author Organization [facility] Address [address] [place] [address] Phone Care Team Providers Care Supervisor Wash House Name Role Phone Unavailable Primary Care Provider Unavailabl e Encounter Details Date Type Department Care Team (Late st Contact Info) Description 04/29/2006 Legacy Encounter - Labs HISTORICAL CONVERSION [place] [phone], [place] [address] ProviderYoav MD [facility] [place] [address] Social History Tobacco Use Types Packs/Day Years [...] LAB RESULT SCAN PROCEDURE 04/29/2006 12:00 AM GROCERY WORKER DPS CONVERSION - LAB RESULT SCAN PROCEDURE 04/29/2006 12:00 AM GROCERY WORKER DPS CONVERSION - LAB RESULT SCAN PROCEDURE 04/29/2006 12:00 AM GROCERY WORKER documented in this encounter Results * DPS CONVERSION - LAB RESULT SCAN PROCEDURE (04/29/2006 12:00 AM GROCERY WORKER) Narrative 04/29/2006 12:00 AM GROCERY WORKER Ordered by an unspecified provider. us Historical Provider LAB BLOOD ORDERABLES Day l Result * DPS CONVERSION - LAB RESULT SCAN PROCEDURE (04/29/2006 12:00 AM GROCERY WORKER) Narrative 04/29/2006 12:00 AM GROCERY WORKER Ordered by an unspecified provider. us Historical Provider LAB BLOOD ORDERABLES Day l Result * DPS CONVERSION - LAB RESULT SCAN PROCEDURE (04/29/2006 12:00 AM GROCERY WORKER) Narrative 04/29/2006 12:00 AM GROCERY WORKER Ordered by an unspecified provider. us Historical Provider LAB BLOOD ORDERABLES Day l Result documented in this encounter Visit Diagnoses Not on filedocumented in this encounter
--- OUTSIDE RECORDS SUMMARY | 2025-03-24 15:56 | XMS_ITS | Encounter Summary ---
Author Organization [facility] Address [address] [place] [address] Phone Care Team Providers Care Director Of Extension Work Name Role Phone Unavailable Primary Care Provider Unavailabl e Encounter Details Date Type Department Care Team (Late st Contact Info) Description 03/13/2015 Legacy Encounter - Labs HISTORICAL CONVERSION [place] [phone], [place] [address] ProviderYoav MD [facility] AnyElizabeth [place] [phone] Social History Tobacco Use Types Packs/Day Years [...]
--- OUTSIDE RECORDS SUMMARY | 2025-03-24 15:56 | XMS_ITS | Encounter Summary ---
Author Organization [facility] Address [address] [place] [address] Phone Care Team Providers Care Child Custody Evaluator Name Role Phone Unavailable Primary Care Provider Unavailabl e Encounter Details Date Type Department Care Team (Late st Contact Info) Description 11/20/2005 Legacy Encounter - Labs HISTORICAL CONVERSION [place]thia [place] [phone], [place] [address] ProviderYoav MD [facility] [place] [phone] Social History Tobacco Use Types Packs/Day Years [...]
--- OUTSIDE RECORDS SUMMARY | 2025-03-24 15:56 | XMS_ITS | Encounter Summary ---
Author Organization [facility] Address [address] [place] [address] Phone Care Team Providers Care Net Programmer Analyst Name Role Phone Unavailable Primary Care Provider Unavailabl e Encounter Details Date Type Department Care Team (Late st Contact Info) Description 10/05/2008 Legacy Encounter - Labs HISTORICAL CONVERSION [place] [phone], [place] [address] ProviderYoav MD [facility] [place]Kevin [place] [phone] Social History Tobacco Use Types Packs/Day Years [...]
--- OUTSIDE RECORDS SUMMARY | 2025-03-24 15:56 | XMS_ITS | Encounter Summary ---
Author Organization [facility] Address [address] [place] [address] Phone Care Team Providers Care Punchboard Inserter Name Role Phone Unavailable Primary Care Provider Unavailabl e Encounter Details Date Type Department Care Team (Late st Contact Info) Description 03/23/2014 Legacy Encounter - Labs HISTORICAL CONVERSION [place] [address], [place] [address] ProviderYoav MD [facility] [place]Fr[place] [phone] Social History Tobacco Use Types Packs/Day Years [...]
--- OUTSIDE RECORDS SUMMARY | 2025-03-24 15:56 | XMS_ITS | Clinical Summary ---
Author Organization [facility] Address [address] [place] [address] Phone Care Team Providers Care Fabrication Engineer Name Role Phone Unavailable Primary Care [...] Active -Hx Entry 5 Active HYDROcodone-ac etaminophen ([place]) 10-325 MG per tablet [place]( 10-325MG Oral 1 as needed ) Active [...] Comments Blood Pressure 122/74 03/27/2015 12:01 AM PLATEN GRINDER Pulse 80 03/27/2015 12:01 AM PLATEN GRINDER Temperature - - Respiratory Rate - - Oxygen Saturation - - Inhaled Oxygen Concentration - - Weight 68.9 kg (152 lb) 03/27/2015 12:01 AM PLATEN GRINDER Height 162.6 cm (5' 4 ) 03/27/2015 12:01 AM PLATEN GRINDER Body Mass Index 26.09 03/27/2015 12:01 AM PLATEN GRINDER Plan of Treatment Not on file Insurance [employer]
--- OUTSIDE RECORDS SUMMARY | 2025-03-24 15:56 | XMS_ITS | Encounter Summary ---
Author Organization [facility] Address [address] [place] [address] Phone Care Team Providers Care Shingle Packer Name Role Phone Unavailable Primary Care Provider Unavailabl e Encounter Details Date Type Department Care Team (Late st Contact Info) Description 10/28/2005 Legacy Encounter - Labs HISTORICAL CONVERSION [place] [phone], [place] [address] ProviderYoav MD [facility] [address] Social History Tobacco Use Types Packs/Day Years [...]
--- OUTSIDE RECORDS SUMMARY | 2025-03-24 15:56 | XMS_ITS | Encounter Summary ---
Author Organization [facility] Address [address] [place] [address] Phone Care Team Providers Care Sample Distributor Name Role Phone Unavailable Primary Care Provider Unavailabl e Encounter Details Date Type Department Care Team (Late st Contact Info) Description 01/30/2006 Legacy Encounter - Labs HISTORICAL CONVERSION Jennifer [place] [phone], [place] [address] ProviderYoav MD [facility] [place]Mel[place] [phone] Social History Tobacco Use Types Packs/Day Years [...]
--- OUTSIDE RECORDS SUMMARY | 2025-03-24 15:56 | XMS_ITS | Encounter Summary ---
Author Organization [facility] Address [address] [place] [address] Phone Care Team Providers Care Registered Safety Engineer Name Role Phone Unavailable Primary Care Provider Unavailabl e Encounter Details Date Type Department Care Team (Late st Contact Info) Description 02/13/2014 Legacy Encounter - Labs HISTORICAL CONVERSION [place] [phone], [place] [address] ProviderYoav MD [facility] [place]Kathryn [place] [phone] Social History Tobacco Use Types Packs/Day Years [...]
--- OUTSIDE RECORDS SUMMARY | 2025-03-24 15:56 | XMS_ITS | Encounter Summary ---
Author Organization [facility] Address [address] [place] [address] Phone Care Team Providers Care Denitrator Name Role Phone Unavailable Primary Care Provider Unavailabl e Encounter Details Date Type Department Care Team (Late st Contact Info) Description 03/01/2012 Legacy Encounter - Labs HISTORICAL CONVERSION Douglas [place] [phone], [place] [address] ProviderYoav MD [facility] [place]Heather [place] [phone] Social History Tobacco Use Types Packs/Day Years [...]
--- OUTSIDE RECORDS SUMMARY | 2025-03-24 15:56 | XMS_ITS | Encounter Summary ---
Author Organization [facility] Address [address] [place] [address] Phone Care Team Providers Care Desk Interviewer Name Role Phone Unavailable Primary Care Provider Unavailabl e Encounter Details Date Type Department Care Team (Late st Contact Info) Description 03/29/2009 Legacy Encounter - Labs HISTORICAL CONVERSION [place] [phone], [place] [address] ProviderYoav MD [address] [place] [address] Social History Tobacco Use Types Packs/Day Years [...] LAB RESULT SCAN PROCEDURE 03/30/2009 12:00 AM MAT GAUGER DPS CONVERSION - LAB RESULT SCAN PROCEDURE 03/29/2009 12:00 AM MAT GAUGER documented in this encounter Results * DPS CONVERSION - LAB RESULT SCAN PROCEDURE (03/30/2009 12:00 AM MAT GAUGER) Narrative 03/30/2009 12:00 AM MAT GAUGER Ordered by an unspecified provider. Historical Provider LAB BLOOD ORDERABLES Day l Result * DPS CONVERSION - LAB RESULT SCAN PROCEDURE (03/29/2009 12:00 AM MAT GAUGER) Narrative 03/29/2009 12:00 AM MAT GAUGER Ordered by an unspecified provider. Historical Provider LAB BLOOD ORDERABLES Day l Result documented in this encounter Visit Diagnoses Not on filedocumented in this encounter
--- OUTSIDE RECORDS SUMMARY | 2025-03-24 15:56 | XMS_ITS | Encounter Summary ---
Author Organization [facility] Address [address] [place] [address] Phone Care Team Providers Care Loading Unit Operator Crimping Name Role Phone Unavailable Primary Care Provider Unavailabl e Encounter Details Date Type Department Care Team (Late st Contact Info) Description 11/06/2006 Legacy Encounter - Labs HISTORICAL CONVERSION [place] [phone], [place] [address] ProviderYoav MD [facility] [place] [address] Social History Tobacco Use Types Packs/Day Years [...] AM CDT Ordered by an unspecified provider. [facility] Provider LAB BLOOD ORDERABLES Day l Result * DPS CONVERSION - LAB RESULT SCAN PROCEDURE (11/06/2006 12:00 AM CDT) Narrative 11/06/2006 12:00 AM CDT Ordered by an unspecified provider. [facility] Provider LAB BLOOD ORDERABLES Day l Result * DPS CONVERSION - LAB RESULT SCAN PROCEDURE (11/06/2006 12:00 AM CDT) Narrative 11/06/2006 12:00 AM CDT Ordered by an unspecified provider. [facility] Provider LAB BLOOD ORDERABLES Day l Result documented in this encounter Visit Diagnoses Not on filedocumented in this encounter
--- OUTSIDE RECORDS SUMMARY | 2025-03-24 15:56 | XMS_ITS | Encounter Summary ---
Author Organization [facility] Address [address] [place] [address] Phone Care Team Providers Care Applications Chemist Name Role Phone Unavailable Primary Care Provider Unavailabl e Encounter Details Date Type Department Care Team (Late st Contact Info) Description 06/18/2009 Legacy Encounter - Labs HISTORICAL CONVERSION [place] [phone], [place] [address] ProviderYoav MD [facility] [place] [phone] Social History Tobacco Use Types Packs/Day Years [...] LAB RESULT SCAN PROCEDURE 06/18/2009 12:00 AM BODY STYLIST documented in this encounter Results * DPS CONVERSION - LAB RESULT SCAN PROCEDURE (06/18/2009 12:00 AM BODY STYLIST) Narrative 06/18/2009 12:00 AM BODY STYLIST Ordered by an unspecified provider. us Historical Provider LAB BLOOD ORDERABLES Day l Result documented in this encounter Visit Diagnoses Not on filedocumented in this encounter
--- OUTSIDE RECORDS SUMMARY | 2025-03-24 15:56 | XMS_ITS | Encounter Summary ---
Author Organization [facility] Address [address] [place] [address] Phone Care Team Providers Care Tumbler Tender Name Role Phone Unavailable Primary Care Provider Unavailabl e Encounter Details Date Type Department Care Team (Late st Contact Info) Description 10/23/2009 Legacy Encounter - Labs HISTORICAL CONVERSION [place] [address], [place] [address] ProviderYoav MD [facility] [place] [phone] Social History Tobacco Use Types Packs/Day Years [...]
--- OUTSIDE RECORDS SUMMARY | 2025-03-24 15:56 | XMS_ITS | Encounter Summary ---
Author Organization [facility] Address [address] [place] [address] Phone Care Team Providers Care Air Quality Technician Name Role Phone Unavailable Primary Care Provider Unavailabl e Encounter Details Date Type Department Care Team (Late st Contact Info) Description 01/18/2014 Legacy Encounter - Labs HISTORICAL CONVERSION [place] [phone], [place] [address] ProviderYoav MD [facility] [place] [phone] Social History Tobacco Use Types Packs/Day Years [...]
--- OUTSIDE RECORDS SUMMARY | 2025-03-24 15:56 | XMS_ITS | Encounter Summary ---
Author Organization [facility] Address [address] [place] [address] Phone Care Team Providers Care Band Booker Name Role Phone Unavailable Primary Care Provider Unavailabl e Encounter Details Date Type Department Care Team (Late st Contact Info) Description 06/11/2011 Legacy Encounter - Labs HISTORICAL CONVERSION [place] [phone], [place] [address] ProviderYoav MD [facility] [place] [phone] Social History Tobacco Use Types Packs/Day Years [...] LAB RESULT SCAN PROCEDURE 06/11/2011 12:00 AM LOWER IN SUPERVISOR documented in this encounter Results * DPS CONVERSION - LAB RESULT SCAN PROCEDURE (06/11/2011 12:00 AM LOWER IN SUPERVISOR) Narrative 06/11/2011 12:00 AM LOWER IN SUPERVISOR Ordered by an unspecified provider. us Historical Provider LAB BLOOD ORDERABLES Day l Result documented in this encounter Visit Diagnoses Not on filedocumented in this encounter
--- OUTSIDE RECORDS SUMMARY | 2025-03-24 15:56 | XMS_ITS | Encounter Summary ---
Author Organization [facility] Address [address] [place] [address] Phone Care Team Providers Care Subcontracts Manager Name Role Phone Unavailable Primary Care Provider Unavailabl e Encounter Details Date Type Department Care Team (Late st Contact Info) Description 06/14/2012 Legacy Encounter - Labs HISTORICAL CONVERSION [place] [address], [place] [address] ProviderYoav MD [facility] [place] [phone] Social History Tobacco Use Types Packs/Day Years [...] LAB RESULT SCAN PROCEDURE 06/14/2012 12:00 AM BULK PLANT SUPERVISOR documented in this encounter Results * DPS CONVERSION - LAB RESULT SCAN PROCEDURE (06/14/2012 12:00 AM BULK PLANT SUPERVISOR) Narrative 06/14/2012 12:00 AM BULK PLANT SUPERVISOR Ordered by an unspecified provider. us Historical Provider LAB BLOOD ORDERABLES Day l Result documented in this encounter Visit Diagnoses Not on filedocumented in this encounter
--- OUTSIDE RECORDS SUMMARY | 2025-03-24 15:56 | XMS_ITS | Encounter Summary ---
Author Organization [facility] Address [address] [place] [address] Phone Care Team Providers Care Project Safety Manager Name Role Phone Unavailable Primary Care Provider Unavailabl e Encounter Details Date Type Department Care Team (Late st Contact Info) Description 03/26/2009 Abstract HISTORICAL CONVERSION [place] [id number] [phone] ProviderYoav MD [facility] [place] [phone] Social History Tobacco Use Types Packs/Day Years [...]
--- OUTSIDE RECORDS SUMMARY | 2025-03-24 15:56 | XMS_ITS | Encounter Summary ---
Author Organization [facility] Address [address] [place] [address] Phone Care Team Providers Care Canvas Baster Name Role Phone Unavailable Primary Care Provider Unavailabl e Encounter Details Date Type Department Care Team (Late st Contact Info) Description 10/29/2013 Legacy Encounter - Labs HISTORICAL CONVERSION [place] [address], [place] [address] ProviderYoav MD [facility] [place] [phone] Social History Tobacco Use Types Packs/Day Years [...]
--- OUTSIDE RECORDS SUMMARY | 2025-03-24 15:56 | XMS_ITS | Encounter Summary ---
Author Organization [facility] Address [address] [place] [address] Phone Care Team Providers Care Air Tool Operator Name Role Phone Unavailable Primary Care Provider Unavailabl e Encounter Details Date Type Department Care Team (Late st Contact Info) Description 07/28/2006 Legacy Encounter - Labs HISTORICAL CONVERSION [place] [phone], [place] [address] ProviderYoav MD [address] [place] [address] Social History Tobacco Use Types Packs/Day Years [...] LAB RESULT SCAN PROCEDURE 07/28/2006 12:00 AM AERONAUTICAL ENGINEERING TECHNOLOGIST DPS CONVERSION - LAB RESULT SCAN PROCEDURE 07/28/2006 12:00 AM AERONAUTICAL ENGINEERING TECHNOLOGIST documented in this encounter Results * DPS CONVERSION - LAB RESULT SCAN PROCEDURE (07/28/2006 12:00 AM AERONAUTICAL ENGINEERING TECHNOLOGIST) Narrative 07/28/2006 12:00 AM AERONAUTICAL ENGINEERING TECHNOLOGIST Ordered by an unspecified provider. Historical Provider LAB BLOOD ORDERABLES Day l Result * DPS CONVERSION - LAB RESULT SCAN PROCEDURE (07/28/2006 12:00 AM AERONAUTICAL ENGINEERING TECHNOLOGIST) Narrative 07/28/2006 12:00 AM AERONAUTICAL ENGINEERING TECHNOLOGIST Ordered by an unspecified provider. Historical Provider LAB BLOOD ORDERABLES Day l Result documented in this encounter Visit Diagnoses Not on filedocumented in this encounter
--- OUTSIDE RECORDS SUMMARY | 2025-03-24 15:56 | XMS_ITS | Encounter Summary ---
Author Organization [facility] Address [address] [place] [address] Phone Care Team Providers Care Accounts Payable Professional Name Role Phone Unavailable Primary Care Provider Unavailabl e Encounter Details Date Type Department Care Team (Late st Contact Info) Description 03/09/2014 Legacy Encounter - Labs HISTORICAL CONVERSION [place] [address], [place] [address] ProviderYoav MD [facility] [place] [phone] Social History Tobacco Use Types Packs/Day Years [...]
--- OUTSIDE RECORDS SUMMARY | 2025-03-24 15:56 | XMS_ITS | Encounter Summary ---
Author Organization [facility] Address [address] [place] [address] Phone Care Team Providers Care Drafting Teacher Name Role Phone Unavailable Primary Care Provider Unavailabl e Encounter Details Date Type Department Care Team (Late st Contact Info) Description 07/15/2011 Legacy Encounter - Labs HISTORICAL CONVERSION [place] [phone], [place] [address] ProviderYoav MD [facility] [place] [phone] Social History Tobacco Use Types Packs/Day Years [...] LAB RESULT SCAN PROCEDURE 07/15/2011 12:00 AM THIRD OFFICER documented in this encounter Results * DPS CONVERSION - LAB RESULT SCAN PROCEDURE (07/15/2011 12:00 AM THIRD OFFICER) Narrative 07/15/2011 12:00 AM THIRD OFFICER Ordered by an unspecified provider. us Historical Provider LAB BLOOD ORDERABLES Day l Result documented in this encounter Visit Diagnoses Not on filedocumented in this encounter
--- OUTSIDE RECORDS SUMMARY | 2025-03-24 15:56 | XMS_ITS | Encounter Summary ---
Author Organization [facility] Address [address] [place] [address] Phone Care Team Providers Care Stem Assembler Name Role Phone Unavailable Primary Care Provider Unavailabl e Encounter Details Date Type Department Care Team (Late st Contact Info) Description 11/01/2013 Abstract HISTORICAL CONVERSION [place] [phone] [facility]av MD [facility] [place] [phone] Social History Tobacco Use Types Packs/Day Years [...]
--- OUTSIDE RECORDS SUMMARY | 2025-03-24 15:56 | XMS_ITS | Encounter Summary ---
Author Organization [facility] Address [address] [place] [address] Phone Care Team Providers Care Specialist Employee Labor Relations Name Role Phone Unavailable Primary Care Provider Unavailabl e Encounter Details Date Type Department Care Team (Late st Contact Info) Description 08/17/2015 Legacy Encounter - Labs HISTORICAL CONVERSION [place] [address], [place] [address] ProviderYoav MD [facility] [place] [phone] Social History Tobacco Use Types Packs/Day Years [...]
--- OUTSIDE RECORDS SUMMARY | 2025-03-24 15:56 | XMS_ITS | Encounter Summary ---
Author Organization [facility] Address [address] [place] [address] Phone Care Team Providers Care Orthopedic Assistant Name Role Phone Unavailable Primary Care Provider Unavailabl e Encounter Details Date Type Department Care Team (Late st Contact Info) Description 03/28/2015 Abstract HISTORICAL CONVERSION [place] [phone] ProviderYoav MD [facility] [place] [phone] Social History Tobacco Use Types Packs/Day Years [...]
--- OUTSIDE RECORDS SUMMARY | 2025-03-24 15:56 | XMS_ITS | Clinical Summary ---
Author Organization [facility] Address [address] [place] [address] Phone Care Team Providers Care City Constable Name Role Phone Unknown, Unknown Primary Care [...] MEDICARE REPLACEMENT MEDICARE PART A & B [facility] MEDICARE REPLACEMENT MEDICARE PART A & B Member Subscriber Plan / Payer (Ef fective 2020-Present) Name:Fabiana Fraser Member ID:[id number] Relation to Subscriber:Self Name:Fabiana Fraser Subscriber ID:[id number] Payer ID:[id number] Group ID:Not on file Type:Medicare Address: [employer] [address] MEDICARE REPLACEMENT MEDICARE PART A & B MEDICARE REPLACEMENT MEDICARE PART A & B Member Subscriber Plan / Payer (Ef fective 2020-Present) Name:Fabiana Fraser Member ID:[id number] Relation to Subscriber:Self Name:Fabiana Fraser Subscriber ID:[id number] Payer ID:[id number] Group ID:Not on file Type:Medicare Address: [employer] [address] MEDICARE REPLACEMENT [place] [id number] MEDICARE PART A & B Member Subscriber Plan / Payer (Ef fective 2020-Present) Name:Fabiana Fraser Member ID:[id number] Relation to Subscriber:Self Name:Fabiana Fraser Subscriber ID:[id number] Payer ID:[id number] Group ID:Not on file Type:Medicare Address: [employer] [address] MEDICARE REPLACEMENT Care Teams City Constable Relationship Specialty Start Date End Date Unknown, Unknown, PCP - General 7/19/22 Additional Source Comments The information contained in this document represents components of the legal health record. It is not the complete legal health record.[facility]
--- OUTSIDE RECORDS SUMMARY | 2025-03-24 15:56 | XMS_ITS | Encounter Summary ---
Author Organization [facility] Address [address] [place] [address] Phone Care Team Providers Care Bleaching Supervisor Name Role Phone Unavailable Primary Care Provider Unavailabl e Encounter Details Date Type Department Care Team (Late st Contact Info) Description 09/12/2010 Legacy Encounter - Labs HISTORICAL CONVERSION [place] [address], [place] [address] ProviderYoav MD [facility] [place] [address] Social History Tobacco Use Types Packs/Day Years [...]
--- OUTSIDE RECORDS SUMMARY | 2025-03-24 15:56 | XMS_ITS | Encounter Summary ---
Author Organization [facility] Address [address] [place] [address] Phone Care Team Providers Care Elementary Classroom Teacher Name Role Phone Unavailable Primary Care Provider Unavailabl e Encounter Details Date Type Department Care Team (Late st Contact Info) Description 01/27/2006 Abstract HISTORICAL CONVERSION [place] [phone] ProviderYoav MD [facility] [place] [phone] Social History Tobacco Use Types Packs/Day Years [...]
[2025-03-24 16:07] VITALS: BP 128/72; PULSE 72; O2SAT 100; BMI 30.3
--- NOTE | 2025-03-24 16:07 | MHC.OFFVIS ---
Vital Signs 03/24/25 16:07 Height 5 ft 5 in Weight 182 lb BMI 30.3 BP 128/72 Blood Pressure Location Rt brachial Position Sitting Pulse 72 Pulse Source Pulse Oximeter Pulse Oximetry (%) 100 Oxygen Delivery Method Room Air Intake Visit Reasons: S/P Right Sprint PNS L4 Intake Note: Pain today 12/01 Weather Analyst Required: No Accompanied by: Self / Same As Patient Allergies sulfa Allergy (Mild, Uncoded 02/28/25 13:18) Hives HPI Comments Details: The patient is a 59-year-old female presenting for follow up s/p right lumbar Sprint. The patient reports that the device requires a high setting of 79 to be effective, which results in discomfort and overstimulation of the muscle. Initially, the device was ineffective at lower settings such as 40, 50, and 60, where no sensation was felt. The patient decided against proceeding with the device on the other side due to concerns of similar issues. The current device appears to be improperly placed, as indicated by the amount of wire visible outside the skin, leading to the need for a higher setting and discomfort. The plan is to replace the current device and place a new one on the left side, ensuring both are correctly positioned. Patient agrees with this plan. - Pain occurs when device is set to 79, causing overstimulation of the muscle - No sensation at lower settings of 40, 50, and 60 - Affect: Patient expresses concern about device placement and its effectiveness - Analgesia: Device requires setting of 79 for effectiveness, causing discomfort - Activities of Daily Living: High setting causes discomfort, impacting daily activities [facility] Medical History Opioid use disorder Osteoporosis penitentiary current use of immunosuppressive drug Chronic low back pain Discoid lupus Thyroid disease Raynaud disease Neuropathy Arthritis Anemia Philipp thyroiditis, fibrous variant Polyarticular arthritis Hypertension Osteopenia of both ankles Surgical History History of ankle surgery History of tonsillectomy History of knee replacement Family History Paternal Grandfather Rheumatoid arthritis Lupus Father ALS (amyotrophic lateral sclerosis) Mother Macular degeneration Social History Household Members: None Housing: Apartment Alcohol intake: never Patient Tobacco Use Status: Never used Tobacco e-Cigarette/Vaping Use: Never Used Second Hand Smoke Exposure: No service: No Current occupational status: disabled Cognitive needs: No Hearing needs: No Vision needs: No Review of Systems Const All systems reviewed & are unremarkable except as noted in HPI and below Physical Exam Exam Exam: General: awake, alert, oriented. Answers questions appropriately. Fully engaged in examination. Skin: warm, dry, intact HEENT: Normocephalic. Hearing intact. Cardiac: External chest normal in appearance. Respiratory: No cough, audible wheezing or stridor. Abdomen: without gross distension. MS: No obvious swelling or deformities. Neurological: Oriented to person, place, time and situation. Thought process intact. No gait abnormalities appreciated. Psychiatric: Appropriate mood and affect. Good judgment and insight. Sprint device: Dressing removed, Site dry, clean, intact. Area cleansed with chloraprep. Approx 5 inches of wire visible, appears lead has been displaced causing lack of adequate stimulation sensation where patient has her chronic pain. Lead removed with intact tip. Area cleansed again with chloraprep, bacitracin dressing with tegaderm applied. Vital Signs: Last Vital Signs Pulse 72 03/24/25 16:07 BP 128/72 03/24/25 16:07 Pulse Ox 100 03/24/25 16:07 Oxygen Delivery Method Room Air 03/24/25 16:07 BMI result Body Mass Index 30.3 Results Reviewed Results Reviewed: 12/07/24 MRI Lumbar Spine without Contrast. TECHNIQUE: Multiplanar multisequence MR imaging was performed through the lumbar spine without contrast. INDICATION: Chronic low back pain, lupus diagnosis 2003, pain felt to improved with conservative therapy. PRIOR: None FINDINGS: 5 non-rib bearing lumbar segments are assumed for numbering purposes. If level specific intervention is planned, correlate with an x-ray to ensure concordant numbering. Marrow and end-plates: Focal Modic 1 changes present involving posterior left L5-S1. Alignment: There is subtle retrolisthesis at L1-2, L2-3, and L5-S1. Soft tissues: There is mild to moderate fatty atrophy of the paraspinal musculature. Conus: The termination of conus medullaris is within normal limits at the level of upper L2. T12-L1: There is mild disc space narrowing and circumferential broad-based disc bulge not causing spinal stenosis or foraminal narrowing. L1-L2: There is mild broad-based disc bulge and disc desiccation without spinal stenosis or foraminal narrowing. L2-L3: There is mild broad-based disc bulge and mild facet arthropathy without spinal stenosis or foraminal narrowing. L3-L4: There is mild loss of disc height and circumferential broad-based disc bulge with bilateral foraminal extrusion and mild facet arthropathy. There is minimal narrowing of left greater than right subarticular zones. There is borderline spinal stenosis. There is mild foraminal narrowing, greater on the left. L4-L5: There is mild circumferential broad-based disc bulge and small left foraminal extrusion with annular fissuring. There is severe right and moderate left facet arthropathy. There is no spinal stenosis. There is minimal narrowing of the left subarticular zone. There is no spinal stenosis. There is mild to moderate bilateral foraminal narrowing. L5-S1: There is circumferential broad-based disc bulge and mild facet arthropathy, greater on right. There is no spinal stenosis. There is moderate bilateral foraminal narrowing. IMPRESSION: L3-L4: There is borderline spinal stenosis and mild lateral recess narrowing, greater on the left. L4-L5: There is mild to moderate bilateral foraminal narrowing. L5-S1: There is moderate bilateral foraminal narrowing. Assessment & Plan Assessment & Plan (1) Lumbar spondylosis: Code(s): M47.816 - Spondylosis without myelopathy or radiculopathy, lumbar region Category: Medical (2) Intractable back pain: Code(s): M54.9 - Dorsalgia, unspecified Category: Medical (3) Lumbar facet arthropathy: Code(s): M47.816 - Spondylosis without myelopathy or radiculopathy, lumbar region Category: Medical (4) Chronic pain syndrome: Code(s): G89.4 - Chronic pain syndrome Category: Medical Plan The plan involves replacing the current device and placing a new one on the left side to ensure proper placement and functionality. The current stimulator wire has been removed as it was displaced and no longer effective. Patient tolerated removal well. The patient will be scheduled for the procedure, and insurance has already approved the replacement and new placement on the same day. Patient was informed and verbally consented to the use of an ambient scribe for clinic note documentation during this visit. Patient Instructions: - Follow up with scheduling for the procedure to replace and place the devices. - Monitor for any changes in symptoms or discomfort and report them. Coding Level of Care Code Est Pt Level 3 (89997) Complex EM visit Add On G2211 Diagnoses Lumbar spondylosis M47.816 Intractable back pain M54.9 Lumbar facet arthropathy M47.816 Chronic pain syndrome G89.4
== END 2025-03-24 16:21 | disposition home or self-care (01) ==
LOC: HO.PMC 15:53
PROVIDERS: PCP Nurse Practitioner Family; Visit Provider Registered Nurse Emergency
DX: M47.816 Spondylosis without myelopathy or radiculopathy, lumbar region (principal); M54.9 Dorsalgia, unspecified; G89.4 Chronic pain syndrome
CPT/HCPCS: 99213; G2211

== ENCOUNTER → 2025-03-24 15:52 | Outpatient (BNVA) | payer MEDICARE, SELFPAY | PROVIDERS: PCP Nurse Practitioner Family; Visit Provider Registered Nurse Emergency | DX: M47.816 Spondylosis without myelopathy or radiculopathy, lumbar region (principal); G89.4 Chronic pain syndrome; M54.9 Dorsalgia, unspecified | CPT/HCPCS: 99212 ==

== ENCOUNTER 2025-04-13 13:08 | Outpatient (AMB) | payer MEDICARE, MEDICAID, SELFPAY ==
--- NOTE | 2025-04-13 13:08 | A.OFFVIS_ITS ---
Intake Visit Reasons: MAT Allergies sulfa Allergy (Mild, Uncoded 04/13/25 13:08) Hives HPI Comments Details: A 59-year-old female presents for a telehealth visit r/t GABE in sustained remission with buprenorphine-naloxone 2-0.5 mg TID. Denies use of opiates, a lcohol, and other substances. Engages in conversation re: Looking forward to [place]. 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 Chronic low back pain Discoid lupus Thyroid disease Raynaud disease Neuropathy Arthritis Anemia Philipp thyroiditis, fibrous variant Polyarticular arthritis Hypertension Osteopenia of both ankles Surgical History History of ankle surgery History of tonsillectomy History of knee replacement Family History Paternal Grandfather Rheumatoid arthritis Lupus Father ALS (amyotrophic lateral sclerosis) Mother Macular degeneration Social History Household Members: None Housing: Apartment Alcohol intake: never Patient Tobacco Use Status: Never used Tobacco e-Cigarette/Vaping Use: Never Used Second Hand Smoke Exposure: No service: No Current occupational status: disabled Cognitive needs: No Hearing needs: No Vision needs: No Review of Systems Const All systems reviewed & are unremarkable except as noted in HPI and below Physical Exam Const General: cooperative Telehealth Telehealth Telehealth Platform: Telephone Location of provider rendering services: practice address Location of patient: address on file Patient Identification confirmed using: Name, : Yes Telehealth method: voice only Patient verbally consented to treatment: Yes Patient verbally consented to billing insurance company: Yes Patient informed of any privacy concerns related to visit: Yes Assessment & Plan Assessment & Plan (1) Opioid use disorder in remission: Code(s): F11.91 - Opioid use, unspecified, in remission Category: Medical Plan The plan of care is to continue with buprenorphine-naloxone 2-0.5 mg TID. Follow up in 3 months or sooner if needed via telehealth. Medications: Refilled buprenorphine-naloxone 2-0.5 mg (Suboxone) One film sublingual three times per day. 1 film sublingual TID 90 ea 2RF buprenorphine-naloxone 2-0.5 mg (Suboxone) One film sublingual three times per day. 1 film sublingual TID 90 ea 2RF Patient Instructions: - Continue with buprenorphine-naloxone as prescribed. - Follow-up in 3 months or sooner if needed via telehealth. - Call with questions, concerns, or to report side effects/new onset of symptoms to [facility]. - The patient verbalized understanding and agreed with plan of care. Coding Level of Care Code Tele Est Pt Level 3 (12382) Diagnoses Opioid use disorder in remission F11.91
--- OUTSIDE RECORDS SUMMARY | 2025-04-13 18:43 | XMS_ITS | Clinical Summary ---
Author Organization [facility] Address [address] [place] [address] Care Team Providers Care Network Design Architect Name Role Phone Pcp, No Primary Care [...] this topic Insurance [employer] MGD MEDICARE [facility] Care Teams Network Design Architect Relationship Specialty Start Date End Date Pcp, No PCP - General General Medicine 05/27/24
== END 2025-04-13 13:25 | disposition home or self-care (01) ==
LOC: HO.HCC 13:08
PROVIDERS: PCP Nurse Practitioner Family; Visit Provider Clinical Nurse Specialist Psychiatric/Mental Health
DX: F11.91 Opioid use, unspecified, in remission (principal)
CPT/HCPCS: 99213

== ENCOUNTER 2025-05-12 13:38 | Outpatient (AMB) | payer MEDICARE, MEDICAID, SELFPAY ==
[2025-05-12 13:40] VITALS: BP 150/70; PULSE 83; RESP 16; O2SAT 93; BMI 30.9
--- NOTE | 2025-05-12 13:40 | MHC.OFFVIS ---
Vital Signs 05/12/25 13:40 Height 5 ft 5 in Weight 186 lb BMI 30.9 BP 150/70 H Blood Pressure Location Lt brachial Position Sitting Respiration 16 Pulse 83 Pulse Source Pulse Oximeter Pulse Oximetry (%) 93 Oxygen Delivery Method Room Air Intake Visit Reasons: Follow Up/Procedure Discussion Jig Bore Operator Required: No Accompanied by: Self / Same As Patient Allergies sulfa Allergy (Mild, Uncoded 04/13/25 13:08) Hives HPI Comments Details: History of Present Illness The patient is a 59 year old female presenting for follow-up for chronic back pain. She has a history of chronic back pain for which she has undergone multiple injections without relief and has no history of back surgery. The patient recently had a Sprint peripheral nerve stimulator trial, which was unsuccessful due to lead displacement. She reports that she did not feel any sensation at the initial setting of 40. She experienced pain relief when she increased the stimulation, but this also caused pain because the setting was too high. The lead was subsequently found to be displaced and was removed. Pain Description - Location: The patient reports her back hurts. - Quality: The pain is described as being so severe that it hurts all the time and is very frustrating. - Alleviating Factors: The pain subsided when she turned her stimulator up. - Associated Symptoms: Turning the stimulator up to a high level also caused pain. Pain Management - Analgesia: The patient recently had a Sprint peripheral nerve stimulator trial. - She reports her pain subsided when she turned the device up, but she did not feel anything at the initial setting of 40. - Affect: The patient expresses that her back pain is very frustrating and that some days she feels like giving up. - Adverse Effects: She experienced pain when the stimulator was turned up too high. - Activities of Daily Living: The patient did not feel she could do more things or move better, but the pain did subside with the stimulator. - Aberrant Drug Related Behaviors: No aberrant drug-related behaviors were noted. 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 Chronic low back pain Discoid lupus Thyroid disease Raynaud disease Neuropathy Arthritis Anemia Philipp thyroiditis, fibrous variant Polyarticular arthritis Hypertension Osteopenia of both ankles Surgical History History of ankle surgery History of tonsillectomy History of knee replacement Family History Paternal Grandfather Rheumatoid arthritis Lupus Father ALS (amyotrophic lateral sclerosis) Mother Macular degeneration Social History Household Members: None Housing: Apartment Alcohol intake: never Patient Tobacco Use Status: Never used Tobacco e-Cigarette/Vaping Use: Never Used Second Hand Smoke Exposure: No service: No Current occupational status: disabled Cognitive needs: No Hearing needs: No Vision needs: No Review of Systems Narrative Review of Systems - Musculoskeletal: Reports chronic, severe back pain. Physical Exam Exam Exam: General: awake, alert, oriented. Answers questions appropriately. Fully engaged in examination. Skin: warm, dry, intact HEENT: Normocephalic. Hearing intact. Cardiac: External chest normal in appearance. Respiratory: No cough, audible wheezing or stridor. Abdomen: without gross distension. MS: No obvious swelling or deformities. Neurological: Oriented to person, place, time and situation. Thought process intact. Psychiatric: Appropriate mood and affect. Good judgment and insight. Vital Signs: Last Vital Signs Pulse 83 05/12/25 13:40 Resp 16 05/12/25 13:40 BP 150/70 H 05/12/25 13:40 Pulse Ox 93 05/12/25 13:40 Oxygen Delivery Method Room Air 05/12/25 13:40 BMI result Body Mass Index 30.9 Assessment & Plan Assessment & Plan (1) Chronic pain syndrome: Code(s): G89.4 - Chronic pain syndrome Category: Medical (2) Lumbar facet arthropathy: Code(s): M47.816 - Spondylosis without myelopathy or radiculopathy, lumbar region Category: Medical (3) Intractable back pain: Code(s): M54.9 - Dorsalgia, unspecified Category: Medical (4) Lumbar spondylosis: Code(s): M47.816 - Spondylosis without myelopathy or radiculopathy, lumbar region Category: Medical Plan Plan The plan is to proceed with a trial for a spinal cord stimulator (SCS) for chronic back pain, as prior treatments including injections have been unsuccessful. The patient will first need to complete a mandatory mental health evaluation, which is required for insurance authorization. Information was provided for her to schedule this evaluation, and she was instructed to notify the office upon completion so the report can be obtained. Once the evaluation is complete and submitted, a one-week SCS trial will be scheduled. If the patient experiences significant pain relief during the trial, an approval request will be submitted to her insurance for a permanent implantable device. An external TENS unit was also offered as an alternative. Patient was informed and verbally consented to the use of an ambient scribe for clinic note documentation during this visit. Discussion Notes I discussed with the patient that her recent Sprint stimulator trial was likely ineffective due to the displacement of the lead. We reviewed her history of chronic back pain and noted that previous providers had already tried multiple other interventions, such as injections, without success. I offered an external TENS unit, but we moved on to discuss a more long-term solution. I introduced the option of a spinal cord stimulator (SCS), explaining that the first step is a one-week trial with temporary leads.If the trial is successful, we would then seek insurance approval for a permanent implant, which is a longer-term solution lasting years, unlike the Sprint device. I detailed that the permanent implant procedure is performed in an operating room under anesthesia and takes a couple of hours. I informed her that a mental health evaluation is a mandatory prerequisite for all implantable devices and is required for insurance submission. The patient acknowledged her frustration with the pain and agreed to proceed with the plan for the SCS trial, starting with the mental health evaluation. Patient Instructions - Please use the information we gave you to schedule your mental health evaluation. - After you have completed the evaluation, please call our office to let us know. This is an important step so we can get the necessary report for your insurance. - This evaluation is required before we can schedule a spinal cord stimulator trial. - The stimulator trial is a one-week test to see if this treatment will help your back pain. - If the trial works well for you, we will discuss getting a permanent device to provide long-term pain relief. Coding Level of Care Code Est Pt Level 3 (14192) Add On Problem Visit Only Diagnoses Chronic pain syndrome G89.4 Lumbar facet arthropathy M47.816 Intractable back pain M54.9 Lumbar spondylosis M47.816
--- OUTSIDE RECORDS SUMMARY | 2025-05-12 15:21 | XMS_ITS | Encounter Summary ---
Author Organization [facility] Address [address] [place] [address] Phone Care Team Providers Care Cutter Finisher Name Role Phone Unavailable Primary Care Provider Unavailabl e Encounter Details Date Type Department Care Team (Late st Contact Info) Description 09/01/2012 Legacy Encounter - Labs HISTORICAL CONVERSION [place] [phone], [place] [address] ProviderYoav MD Counts include 234 beds at [facility] [address] Social History Tobacco Use Types Packs/Day Years [...]
--- OUTSIDE RECORDS SUMMARY | 2025-05-12 15:21 | XMS_ITS | Encounter Summary ---
Author Organization [facility] Address [address] [place] [address] Phone Care Team Providers Care Air Brush Artist Name Role Phone Unavailable Primary Care Provider Unavailabl e Encounter Details Date Type Department Care Team (Late st Contact Info) Description 10/29/2013 Legacy Encounter - Labs HISTORICAL CONVERSION [place] [address] [address] ProviderYoav MD [facility] [place] [phone] Social History Tobacco Use Types Packs/Day Years [...]
--- OUTSIDE RECORDS SUMMARY | 2025-05-12 15:21 | XMS_ITS | Encounter Summary ---
Author Organization [facility] Address [address] [place] [address] Phone Care Team Providers Care Sample Worker Name Role Phone Unavailable Primary Care Provider Unavailabl e Encounter Details Date Type Department Care Team (Late st Contact Info) Description 11/01/2013 Abstract HISTORICAL CONVERSION [place] [phone] ProviderYoav MD [facility] [place] [phone] Social History Tobacco Use Types Packs/Day Years [...]
--- OUTSIDE RECORDS SUMMARY | 2025-05-12 15:21 | XMS_ITS | Encounter Summary ---
Author Organization [facility] Address [address] [place] [address] Phone Care Team Providers Care Yarn Wrapper Name Role Phone Unavailable Primary Care Provider Unavailabl e Encounter Details Date Type Department Care Team (Late st Contact Info) Description 08/07/2012 Legacy Encounter - Labs HISTORICAL CONVERSION [place] [phone] [address] ProviderYoav MD [facility] [place] [phone] Social History Tobacco Use Types Packs/Day Years [...]
--- OUTSIDE RECORDS SUMMARY | 2025-05-12 15:21 | XMS_ITS | Encounter Summary ---
Author Organization [facility] Address [address] [place] [address] Phone Care Team Providers Care Hyperbaric Technologist Name Role Phone Unavailable Primary Care Provider Unavailabl e Encounter Details Date Type Department Care Team (Late st Contact Info) Description 06/06/2013 Abstract HISTORICAL CONVERSION [place] [phone] ProviderYoav MD [facility] [place] [phone] Social History Tobacco Use Types Packs/Day Years [...]
--- OUTSIDE RECORDS SUMMARY | 2025-05-12 15:21 | XMS_ITS | Encounter Summary ---
Author Organization [facility] Address [address] [place] [address] Phone Care Team Providers Care Freight Receiver Name Role Phone Unavailable Primary Care Provider Unavailabl e Encounter Details Date Type Department Care Team (Late st Contact Info) Description 09/13/2012 Legacy Encounter - Labs HISTORICAL CONVERSION [place] [address], [place] [address] ProviderYoav MD [facility] [address] Social History Tobacco Use Types Packs/Day Years [...]
--- OUTSIDE RECORDS SUMMARY | 2025-05-12 15:21 | XMS_ITS | Clinical Summary ---
Author Organization [facility] Address [address] [phone] Care Team Providers Care U.S. Commissioner Name Role Phone Pcp, No Primary Care [...] C Virus Screening 1964 COVID-19 Vaccine (#1) 06/25/1965 HIV Screening 1977 DTaP/Tdap/Td Vaccines (1 - [...] this topic Insurance [employer] MGD MEDICARE [facility] Care Teams U.S. Commissioner Relationship Specialty Start Date End Date Pcp, No PCP - General General Medicine 05/27/24
--- OUTSIDE RECORDS SUMMARY | 2025-05-12 15:21 | XMS_ITS | Encounter Summary ---
Author Organization [facility] Address [address] [place] [address] Phone Care Team Providers Care College Or University Department Head Name Role Phone Unavailable Primary Care Provider Unavailabl e Encounter Details Date Type Department Care Team (Late st Contact Info) Description 12/24/2012 Legacy Encounter - Labs HISTORICAL CONVERSION [place] [address], [place] [address] ProviderYoav MD [facility] [place] [phone] Social History Tobacco Use Types Packs/Day Years [...]
--- OUTSIDE RECORDS SUMMARY | 2025-05-12 15:21 | XMS_ITS | Encounter Summary ---
Author Organization [facility] Address [address] [place] [address] Phone Care Team Providers Care Ultrasound Applications Specialist Name Role Phone Unavailable Primary Care Provider Unavailabl e Encounter Details Date Type Department Care Team (Late st Contact Info) Description 07/06/2009 Abstract HISTORICAL CONVERSION [place] [phone] ProviderYoav MD [facility] [place] [phone] Social History Tobacco Use Types Packs/Day Years [...]
--- OUTSIDE RECORDS SUMMARY | 2025-05-12 15:21 | XMS_ITS | Encounter Summary ---
Author Organization [facility] Address [address] [place] [address] Phone Care Team Providers Care Customer Service Attendant Name Role Phone Unavailable Primary Care Provider Unavailabl e Encounter Details Date Type Department Care Team (Late st Contact Info) Description 10/22/2012 Legacy Encounter - Labs HISTORICAL CONVERSION [place] [address], [place] [address] ProviderYoav MD [facility] [place] [phone] Social History Tobacco Use Types Packs/Day Years [...]
--- OUTSIDE RECORDS SUMMARY | 2025-05-12 15:21 | XMS_ITS | Encounter Summary ---
Author Organization [facility] Address [address] [place] [address] Phone Care Team Providers Care Commercial Producer Name Role Phone Unavailable Primary Care Provider Unavailabl e Encounter Details Date Type Department Care Team (Late st Contact Info) Description 01/20/2013 Legacy Encounter - Labs HISTORICAL CONVERSION [place] [address], [place] [address] ProviderYoav MD [facility] [place] [phone] Social History Tobacco Use Types Packs/Day Years [...]
--- OUTSIDE RECORDS SUMMARY | 2025-05-12 15:21 | XMS_ITS | Encounter Summary ---
Author Organization [facility] Address [address] [place] [address] Phone Care Team Providers Care Documentation Spec Name Role Phone Unavailable Primary Care Provider Unavailabl e Encounter Details Date Type Department Care Team (Late st Contact Info) Description 06/29/2012 Legacy Encounter - Labs HISTORICAL CONVERSION [place] [phone], [place] [address] ProviderYoav MD [facility] [place] [phone] Social History Tobacco Use Types Packs/Day Years [...] LAB RESULT SCAN PROCEDURE 06/29/2012 12:00 AM EDGE BANDER OPERATOR documented in this encounter Results * DPS CONVERSION - LAB RESULT SCAN PROCEDURE (06/29/2012 12:00 AM EDGE BANDER OPERATOR) Narrative 06/29/2012 12:00 AM EDGE BANDER OPERATOR Ordered by an unspecified provider. us Historical Provider LAB BLOOD ORDERABLES Day l Result documented in this encounter Visit Diagnoses Not on filedocumented in this encounter
--- OUTSIDE RECORDS SUMMARY | 2025-05-12 15:22 | XMS_ITS | Encounter Summary ---
Author Organization [facility] Address [address] [place] [address] Phone Care Team Providers Care Maintenance Controller Name Role Phone Unavailable Primary Care Provider Unavailabl e Encounter Details Date Type Department Care Team (Late st Contact Info) Description 06/14/2012 Legacy Encounter - Labs HISTORICAL CONVERSION [place] [address], [place] [address] ProviderYoav MD [facility] [place] [phone] Social History Tobacco Use Types Packs/Day Years [...] LAB RESULT SCAN PROCEDURE 06/14/2012 12:00 AM NEEDLE GRINDER documented in this encounter Results * DPS CONVERSION - LAB RESULT SCAN PROCEDURE (06/14/2012 12:00 AM NEEDLE GRINDER) Narrative 06/14/2012 12:00 AM NEEDLE GRINDER Ordered by an unspecified provider. us Historical Provider LAB BLOOD ORDERABLES Day l Result documented in this encounter Visit Diagnoses Not on filedocumented in this encounter
--- OUTSIDE RECORDS SUMMARY | 2025-05-12 15:22 | XMS_ITS | Encounter Summary ---
Author Organization [facility] Address [address] [place] [address] Phone Care Team Providers Care Title Clerk Automobile Name Role Phone Unavailable Primary Care Provider Unavailabl e Encounter Details Date Type Department Care Team (Late st Contact Info) Description 03/28/2015 Abstract HISTORICAL CONVERSION [place] [phone] ProviderYoav MD [facility] [place] [phone] Social History Tobacco Use Types Packs/Day Years [...]
--- OUTSIDE RECORDS SUMMARY | 2025-05-12 15:22 | XMS_ITS | Encounter Summary ---
Author Organization [facility] Address [address] [place] [address] Phone Care Team Providers Care Learning Coordinator Name Role Phone Unavailable Primary Care Provider Unavailabl e Encounter Details Date Type Department Care Team (Late st Contact Info) Description 03/01/2012 Legacy Encounter - Labs HISTORICAL CONVERSION [place] [phone], [place] [address] ProviderYoav MD [facility] [place] [phone] Social History Tobacco Use Types Packs/Day Years [...]
--- OUTSIDE RECORDS SUMMARY | 2025-05-12 15:22 | XMS_ITS | Encounter Summary ---
Author Organization [facility] Address [address] [place] [address] Phone Care Team Providers Care Mix Maker Name Role Phone Unavailable Primary Care Provider Unavailabl e Encounter Details Date Type Department Care Team (Late st Contact Info) Description 01/18/2014 Legacy Encounter - Labs HISTORICAL CONVERSION [place] [address], [place] [address] ProviderYoav MD [facility] [place] [phone] Social History Tobacco Use Types Packs/Day Years [...]
--- OUTSIDE RECORDS SUMMARY | 2025-05-12 15:22 | XMS_ITS | Encounter Summary ---
Author Organization [facility] Address [address] [place] [address] Phone Care Team Providers Care Reference Investigator Name Role Phone Unavailable Primary Care Provider Unavailabl e Encounter Details Date Type Department Care Team (Late st Contact Info) Description 07/28/2006 Legacy Encounter - Labs HISTORICAL CONVERSION [place] [address], [place] [address] ProviderYoav MD [address] [place] [address] Social History Tobacco Use Types Packs/Day Years [...] LAB RESULT SCAN PROCEDURE 07/28/2006 12:00 AM RRT DPS CONVERSION - LAB RESULT SCAN PROCEDURE 07/28/2006 12:00 AM RRT documented in this encounter Results * DPS CONVERSION - LAB RESULT SCAN PROCEDURE (07/28/2006 12:00 AM RRT) Narrative 07/28/2006 12:00 AM RRT Ordered by an unspecified provider. Historical Provider LAB BLOOD ORDERABLES Day l Result * DPS CONVERSION - LAB RESULT SCAN PROCEDURE (07/28/2006 12:00 AM RRT) Narrative 07/28/2006 12:00 AM RRT Ordered by an unspecified provider. Historical Provider LAB BLOOD ORDERABLES Day l Result documented in this encounter Visit Diagnoses Not on filedocumented in this encounter
--- OUTSIDE RECORDS SUMMARY | 2025-05-12 15:22 | XMS_ITS | Clinical Summary ---
Author Organization [facility] Address [address] [place] [address] Phone Care Team Providers Care Transcribing Machine Operator Name Role Phone Unknown, Unknown Primary Care [...] MEDICARE REPLACEMENT MEDICARE PART A & B [facility] MEDICARE REPLACEMENT MEDICARE PART A & B Member Subscriber Plan / Payer (Ef fective 2020-Present) Name:Fabiana Fraser Member ID:[id number] Relation to Subscriber:Self Name:Fabiana Fraser Subscriber ID:[id number] Payer ID:[id number] Group ID:Not on file Type:Medicare Address: [employer] [address] MEDICARE REPLACEMENT MEDICARE PART A & B MEDICARE REPLACEMENT MEDICARE PART A & B Member Subscriber Plan / Payer (Ef fective 2020-Present) Name:Fabiana Fraser Member ID:[id number] Relation to Subscriber:Self Name:Fabiana Fraser Subscriber ID:[id number] Payer ID:[id number] Group ID:Not on file Type:Medicare Address: [employer] [address] MEDICARE REPLACEMENT [place] [id number] MEDICARE PART A & B Member Subscriber Plan / Payer (Ef fective 2020-Present) Name:Fabiana Fraser Member ID:[id number] Relation to Subscriber:Self Name:Fabiana Fraser Subscriber ID:[id number] Payer ID:[id number] Group ID:Not on file Type:Medicare Address: [employer] [address] MEDICARE REPLACEMENT Care Teams Transcribing Machine Operator Relationship Specialty Start Date End Date Unknown, Unknown, PCP - General 7/19/22 Additional Source Comments The information contained in this document represents components of the legal health record. It is not the complete legal health record.[facility]
--- OUTSIDE RECORDS SUMMARY | 2025-05-12 15:22 | XMS_ITS | Clinical Summary ---
Author Organization [facility] Address [address] [place] [address] Phone Care Team Providers Care Integration Software Engineer Name Role Phone Unavailable Primary Care [...] Active -Hx Entry 5 Active HYDROcodone-ac etaminophen (Sherwood) 10-325 MG per tablet Sherwood( 10-325MG Oral 1 as needed ) Active [...] Comments Blood Pressure 122/74 03/27/2015 12:01 AM VIDEO NETWORK ENGINEER Pulse 80 03/27/2015 12:01 AM VIDEO NETWORK ENGINEER Temperature - - Respiratory Rate - - Oxygen Saturation - - Inhaled Oxygen Concentration - - Weight 68.9 kg (152 lb) 03/27/2015 12:01 AM VIDEO NETWORK ENGINEER Height 162.6 cm (5' 4 ) 03/27/2015 12:01 AM VIDEO NETWORK ENGINEER Body Mass Index 26.09 03/27/2015 12:01 AM VIDEO NETWORK ENGINEER Plan of Treatment Not on file Insurance PM INTERFACED INSURANCE
--- OUTSIDE RECORDS SUMMARY | 2025-05-12 15:22 | XMS_ITS | Encounter Summary ---
Author Organization [facility] Address [address] [place] [address] Phone Care Team Providers Care Paper Mill Supervisor Name Role Phone Unavailable Primary Care Provider Unavailabl e Encounter Details Date Type Department Care Team (Late st Contact Info) Description 06/11/2011 Legacy Encounter - Labs HISTORICAL CONVERSION [place] [phone], [place] [address] ProviderYoav MD [facility] [place] [phone] Social History Tobacco Use Types Packs/Day Years [...] LAB RESULT SCAN PROCEDURE 06/11/2011 12:00 AM APPLE SORTER documented in this encounter Results * DPS CONVERSION - LAB RESULT SCAN PROCEDURE (06/11/2011 12:00 AM APPLE SORTER) Narrative 06/11/2011 12:00 AM APPLE SORTER Ordered by an unspecified provider. us Historical Provider LAB BLOOD ORDERABLES Day l Result documented in this encounter Visit Diagnoses Not on filedocumented in this encounter
--- OUTSIDE RECORDS SUMMARY | 2025-05-12 15:22 | XMS_ITS | Encounter Summary ---
Author Organization [facility] Address [address] [place] [address] Phone Care Team Providers Care Card Player Name Role Phone Unavailable Primary Care Provider Unavailabl e Encounter Details Date Type Department Care Team (Late st Contact Info) Description 03/27/2015 Clinical Support HISTORICAL [place] [id number], [place] [address] ProviderYoav MD [facility] [place]Kevin [place] [phone] Social History Tobacco Use Types Packs/Day Years [...]
--- OUTSIDE RECORDS SUMMARY | 2025-05-12 15:22 | XMS_ITS | Encounter Summary ---
Author Organization [facility] Address [address] [place] [address] Phone Care Team Providers Care Ingot Caster Name Role Phone Unavailable Primary Care Provider Unavailabl e Encounter Details Date Type Department Care Team (Late st Contact Info) Description 08/17/2015 Legacy Encounter - Labs HISTORICAL CONVERSION [place] [phone], [place] [address] ProviderYoav MD [facility] [place] [phone] Social History Tobacco Use Types Packs/Day Years [...]
--- OUTSIDE RECORDS SUMMARY | 2025-05-12 15:22 | XMS_ITS | Encounter Summary ---
Author Organization [facility] Address [address] [place] [address] Phone Care Team Providers Care Pathology Manager Name Role Phone Unavailable Primary Care Provider Unavailabl e Encounter Details Date Type Department Care Team (Late st Contact Info) Description 06/18/2009 Legacy Encounter - Labs HISTORICAL CONVERSION [place] [phone], [place] [address] ProviderYoav MD [facility] [place] [phone] Social History Tobacco Use Types Packs/Day Years [...] LAB RESULT SCAN PROCEDURE 06/18/2009 12:00 AM ENGINEER SERGEANT documented in this encounter Results * DPS CONVERSION - LAB RESULT SCAN PROCEDURE (06/18/2009 12:00 AM ENGINEER SERGEANT) Narrative 06/18/2009 12:00 AM ENGINEER SERGEANT Ordered by an unspecified provider. us Historical Provider LAB BLOOD ORDERABLES Day l Result documented in this encounter Visit Diagnoses Not on filedocumented in this encounter
--- OUTSIDE RECORDS SUMMARY | 2025-05-12 15:22 | XMS_ITS | Encounter Summary ---
Author Organization [facility] Address [address] [place] [address] Phone Care Team Providers Care Design Checker Name Role Phone Unavailable Primary Care Provider Unavailabl e Encounter Details Date Type Department Care Team (Late st Contact Info) Description 03/26/2009 Abstract HISTORICAL CONVERSION [place] [id number] [phone] ProviderYoav MD [facility] [place]Ashley [place] [phone] Social History Tobacco Use Types Packs/Day Years [...]
--- OUTSIDE RECORDS SUMMARY | 2025-05-12 15:22 | XMS_ITS | Encounter Summary ---
Author Organization [facility] Address [address] [place] [address] Phone Care Team Providers Care Relay Technician Name Role Phone Unavailable Primary Care Provider Unavailabl e Encounter Details Date Type Department Care Team (Late st Contact Info) Description 09/12/2010 Legacy Encounter - Labs HISTORICAL CONVERSION [place] [phone], [place] [address] ProviderYoav MD [facility] [place] [address] Social History Tobacco Use Types Packs/Day Years [...]
--- OUTSIDE RECORDS SUMMARY | 2025-05-12 15:22 | XMS_ITS | Encounter Summary ---
Author Organization [facility] Address [address] [place] [address] Phone Care Team Providers Care Principal Architectural Firm Name Role Phone Unavailable Primary Care Provider Unavailabl e Encounter Details Date Type Department Care Team (Late st Contact Info) Description 08/18/2015 Legacy Encounter - Labs HISTORICAL CONVERSION [place] [phone], [place] [address] ProviderYoav MD Counts include 234 beds at the [facility] [place]phanie [place] [phone] Social History Tobacco Use Types Packs/Day Years [...]
--- OUTSIDE RECORDS SUMMARY | 2025-05-12 15:22 | XMS_ITS | Encounter Summary ---
Author Organization [facility] Address [address] [place] [address] Phone Care Team Providers Care Hydrotreater Operator Name Role Phone Unavailable Primary Care Provider Unavailabl e Encounter Details Date Type Department Care Team (Late st Contact Info) Description 09/18/2008 Legacy Encounter - Labs HISTORICAL CONVERSION [place] [phone], [place] [address] ProviderYoav MD [facility] [place]Jacqueline [place] [phone] Social History Tobacco Use Types Packs/Day Years [...]
--- OUTSIDE RECORDS SUMMARY | 2025-05-12 15:22 | XMS_ITS | Encounter Summary ---
Author Organization [facility] Address [address] [place] [address] Phone Care Team Providers Care Equipment Maintenance Tech Name Role Phone Unavailable Primary Care Provider Unavailabl e Encounter Details Date Type Department Care Team (Late st Contact Info) Description 02/13/2014 Legacy Encounter - Labs HISTORICAL CONVERSION [place] [phone], [place] [address] ProviderYoav MD [facility] AnyStacy [place] [phone] Social History Tobacco Use Types Packs/Day Years [...]
--- OUTSIDE RECORDS SUMMARY | 2025-05-12 15:22 | XMS_ITS | Encounter Summary ---
Author Organization [facility] Address [address] [place] [address] Phone Care Team Providers Care Group Activities Aide Name Role Phone Unavailable Primary Care Provider Unavailabl e Encounter Details Date Type Department Care Team (Late st Contact Info) Description 03/09/2014 Legacy Encounter - Labs HISTORICAL CONVERSION [place] [phone], [place] [address] ProvideroYav MD [facility] AnyMichaela [place] [phone] Social History Tobacco Use Types Packs/Day Years [...]
--- OUTSIDE RECORDS SUMMARY | 2025-05-12 15:22 | XMS_ITS | Encounter Summary ---
Author Organization [facility]imissy Address [address] [place] [address] Phone Care Team Providers Care Mix House Operator Name Role Phone Unavailable Primary Care Provider Unavailabl e Encounter Details Date Type Department Care Team (Late st Contact Info) Description 03/29/2009 Legacy Encounter - Labs HISTORICAL CONVERSION [place] [phone], [place] [address] ProviderYoav MD [address] [place] [address] Social History Tobacco Use Types Packs/Day Years [...] LAB RESULT SCAN PROCEDURE 03/30/2009 12:00 AM SAILBOAT CAPTAIN DPS CONVERSION - LAB RESULT SCAN PROCEDURE 03/29/2009 12:00 AM SAILBOAT CAPTAIN documented in this encounter Results * DPS CONVERSION - LAB RESULT SCAN PROCEDURE (03/30/2009 12:00 AM SAILBOAT CAPTAIN) Narrative 03/30/2009 12:00 AM SAILBOAT CAPTAIN Ordered by an unspecified provider. Historical Provider LAB BLOOD ORDERABLES Day l Result * DPS CONVERSION - LAB RESULT SCAN PROCEDURE (03/29/2009 12:00 AM SAILBOAT CAPTAIN) Narrative 03/29/2009 12:00 AM SAILBOAT CAPTAIN Ordered by an unspecified provider. Historical Provider LAB BLOOD ORDERABLES Day l Result documented in this encounter Visit Diagnoses Not on filedocumented in this encounter
--- OUTSIDE RECORDS SUMMARY | 2025-05-12 15:22 | XMS_ITS | Encounter Summary ---
Author Organization [facility] Address [address] [place] [address] Phone Care Team Providers Care Intelligence Support Officer Name Role Phone Unavailable Primary Care Provider Unavailabl e Encounter Details Date Type Department Care Team (Late st Contact Info) Description 10/05/2008 Legacy Encounter - Labs HISTORICAL CONVERSION [place] [phone], [place] [address] ProviderYoav MD [facility] [place]Kathleen [place] [phone] Social History Tobacco Use Types Packs/Day Years [...]
--- OUTSIDE RECORDS SUMMARY | 2025-05-12 15:22 | XMS_ITS | Encounter Summary ---
Author Organization [facility] Address [address] [place] [address] Phone Care Team Providers Care Steel Molder Name Role Phone Unavailable Primary Care Provider Unavailabl e Encounter Details Date Type Department Care Team (Late st Contact Info) Description 10/23/2009 Legacy Encounter - Labs HISTORICAL CONVERSION [place] [phone], [place] [address] ProviderYoav MD [facility] [place]Jessica [place] [phone] Social History Tobacco Use Types Packs/Day Years [...]
--- OUTSIDE RECORDS SUMMARY | 2025-05-12 15:22 | XMS_ITS | Encounter Summary ---
Author Organization [facility] Address [address] [place] [address] Phone Care Team Providers Care Automobile Wrecker Name Role Phone Unavailable Primary Care Provider Unavailabl e Encounter Details Date Type Department Care Team (Late st Contact Info) Description 01/27/2006 Abstract HISTORICAL CONVERSION [place] [phone] ProviderYoav MD [facility] AnyJoseph [place] [phone] Social History Tobacco Use Types Packs/Day Years [...]
--- OUTSIDE RECORDS SUMMARY | 2025-05-12 15:22 | XMS_ITS | Encounter Summary ---
Author Organization [facility] Address [address] [place] [address] Phone Care Team Providers Care Table Machine Operator Name Role Phone Unavailable Primary Care Provider Unavailabl e Encounter Details Date Type Department Care Team (Late st Contact Info) Description 01/09/2014 Legacy Encounter - Labs HISTORICAL CONVERSION [place] [phone], [place] [address] ProviderYoav MD [facility] [place]Barbara [place] [phone] Social History Tobacco Use Types Packs/Day Years [...]
--- OUTSIDE RECORDS SUMMARY | 2025-05-12 15:22 | XMS_ITS | Encounter Summary ---
Author Organization [facility] Address [address] [place] [address] Phone Care Team Providers Care Tube Builder Name Role Phone Unavailable Primary Care Provider Unavailabl e Encounter Details Date Type Department Care Team (Late st Contact Info) Description 07/15/2011 Legacy Encounter - Labs HISTORICAL CONVERSION [place] [phone], [place] [address] ProviderYoav MD [facility] [place]Katherine [place] [phone] Social History Tobacco Use Types Packs/Day Years [...] LAB RESULT SCAN PROCEDURE 07/15/2011 12:00 AM CLINICAL BUSINESS ANALYST documented in this encounter Results * DPS CONVERSION - LAB RESULT SCAN PROCEDURE (07/15/2011 12:00 AM CLINICAL BUSINESS ANALYST) Narrative 07/15/2011 12:00 AM CLINICAL BUSINESS ANALYST Ordered by an unspecified provider. us Historical Provider LAB BLOOD ORDERABLES Day l Result documented in this encounter Visit Diagnoses Not on filedocumented in this encounter
--- OUTSIDE RECORDS SUMMARY | 2025-05-12 15:22 | XMS_ITS | Encounter Summary ---
Author Organization [facility] Address [address] [place] [address] Phone Care Team Providers Care Tire Regrooving Machine Operator Name Role Phone Unavailable Primary Care Provider Unavailabl e Encounter Details Date Type Department Care Team (Late st Contact Info) Description 05/04/2006 Legacy Encounter - Labs HISTORICAL CONVERSION [place] [phone], [place] [address] ProviderYoav MD [facility] [place]Carrie [place] [phone] Social History Tobacco Use Types Packs/Day Years [...] LAB RESULT SCAN PROCEDURE 05/04/2006 12:00 AM CLAIMS ADJUSTOR documented in this encounter Results * DPS CONVERSION - LAB RESULT SCAN PROCEDURE (05/04/2006 12:00 AM CLAIMS ADJUSTOR) Narrative 05/04/2006 12:00 AM CLAIMS ADJUSTOR Ordered by an unspecified provider. us Historical Provider LAB BLOOD ORDERABLES Day l Result documented in this encounter Visit Diagnoses Not on filedocumented in this encounter
--- OUTSIDE RECORDS SUMMARY | 2025-05-12 15:22 | XMS_ITS | Encounter Summary ---
Author Organization [facility] Address [address] [place] [address] Phone Care Team Providers Care Temporary Help Agency Referral Clerk Name Role Phone Unavailable Primary Care Provider Unavailabl e Encounter Details Date Type Department Care Team (Late st Contact Info) Description 03/23/2014 Legacy Encounter - Labs HISTORICAL CONVERSION [place] [phone], [place] [address] ProviderYoav MD [facility] [place]Timothy [place] [phone] Social History Tobacco Use Types Packs/Day Years [...]
--- OUTSIDE RECORDS SUMMARY | 2025-05-12 15:22 | XMS_ITS | Encounter Summary ---
Author Organization [facility] Address [address] [place] [address] Phone Care Team Providers Care Supervisor Sheet Manufacturing Name Role Phone Unavailable Primary Care Provider Unavailabl e Encounter Details Date Type Department Care Team (Late st Contact Info) Description 08/28/2006 Legacy Encounter - Labs HISTORICAL CONVERSION [place] [phone], [place] [address] ProviderYoav MD [facility] AnyJessica [place] [phone] Social History Tobacco Use Types Packs/Day Years [...]
--- OUTSIDE RECORDS SUMMARY | 2025-05-12 15:22 | XMS_ITS | Encounter Summary ---
Author Organization [facility] Address [address] [place] [address] Phone Care Team Providers Care Granite Worker Name Role Phone Unavailable Primary Care Provider Unavailabl e Encounter Details Date Type Department Care Team (Late st Contact Info) Description 01/30/2006 Legacy Encounter - Labs HISTORICAL CONVERSION [place] [address], [place] [address] ProviderYoav MD [facility] AnyRyan [place] [phone] Social History Tobacco Use Types Packs/Day Years [...]
--- OUTSIDE RECORDS SUMMARY | 2025-05-12 15:22 | XMS_ITS | Encounter Summary ---
Author Organization [facility] Address [address] [place] [address] Phone Care Team Providers Care Hull Inspector Name Role Phone Unavailable Primary Care Provider Unavailabl e Encounter Details Date Type Department Care Team (Late st Contact Info) Description 11/20/2005 Legacy Encounter - Labs HISTORICAL CONVERSION [place] [phone], [place] [address] ProviderYoav MD [facility] AnyBeth [place] [phone] Social History Tobacco Use Types Packs/Day Years [...]
--- OUTSIDE RECORDS SUMMARY | 2025-05-12 15:22 | XMS_ITS | Encounter Summary ---
Author Organization [facility] Address [address] [place] [address] Phone Care Team Providers Care Leather Tooler Name Role Phone Unavailable Primary Care Provider Unavailabl e Encounter Details Date Type Department Care Team (Late st Contact Info) Description 11/06/2006 Legacy Encounter - Labs HISTORICAL CONVERSION [place] [phone], [place] [address] ProviderYoav MD Counts include 234 beds at the [facility] [place] [address] Social History Tobacco Use Types Packs/Day Years [...] AM CDT Ordered by an unspecified provider. [facility] Provider LAB BLOOD ORDERABLES Day l Result * DPS CONVERSION - LAB RESULT SCAN PROCEDURE (11/06/2006 12:00 AM CDT) Narrative 11/06/2006 12:00 AM CDT Ordered by an unspecified provider. [facility] Provider LAB BLOOD ORDERABLES Day l Result * DPS CONVERSION - LAB RESULT SCAN PROCEDURE (11/06/2006 12:00 AM CDT) Narrative 11/06/2006 12:00 AM CDT Ordered by an unspecified provider. [facility] Provider LAB BLOOD ORDERABLES Day l Result documented in this encounter Visit Diagnoses Not on filedocumented in this encounter
--- OUTSIDE RECORDS SUMMARY | 2025-05-12 15:22 | XMS_ITS | Encounter Summary ---
Author Organization [facility] Address [address] [place] [address] Phone Care Team Providers Care Prefitter Name Role Phone Unavailable Primary Care Provider Unavailabl e Encounter Details Date Type Department Care Team (Late st Contact Info) Description 04/29/2006 Legacy Encounter - Labs HISTORICAL CONVERSION [place] [phone], [place] [address] ProviderYoav MD [facility] [place] [address] Social History Tobacco Use Types Packs/Day Years [...] LAB RESULT SCAN PROCEDURE 04/29/2006 12:00 AM TECHNICAL SERVICE SPECIALIST DPS CONVERSION - LAB RESULT SCAN PROCEDURE 04/29/2006 12:00 AM TECHNICAL SERVICE SPECIALIST DPS CONVERSION - LAB RESULT SCAN PROCEDURE 04/29/2006 12:00 AM TECHNICAL SERVICE SPECIALIST documented in this encounter Results * DPS CONVERSION - LAB RESULT SCAN PROCEDURE (04/29/2006 12:00 AM TECHNICAL SERVICE SPECIALIST) Narrative 04/29/2006 12:00 AM TECHNICAL SERVICE SPECIALIST Ordered by an unspecified provider. us Historical Provider LAB BLOOD ORDERABLES Day l Result * DPS CONVERSION - LAB RESULT SCAN PROCEDURE (04/29/2006 12:00 AM TECHNICAL SERVICE SPECIALIST) Narrative 04/29/2006 12:00 AM TECHNICAL SERVICE SPECIALIST Ordered by an unspecified provider. us Historical Provider LAB BLOOD ORDERABLES Day l Result * DPS CONVERSION - LAB RESULT SCAN PROCEDURE (04/29/2006 12:00 AM TECHNICAL SERVICE SPECIALIST) Narrative 04/29/2006 12:00 AM TECHNICAL SERVICE SPECIALIST Ordered by an unspecified provider. us Historical Provider LAB BLOOD ORDERABLES Day l Result documented in this encounter Visit Diagnoses Not on filedocumented in this encounter
--- OUTSIDE RECORDS SUMMARY | 2025-05-12 15:22 | XMS_ITS | Encounter Summary ---
Author Organization [facility] Address [address] [place] [address] Phone Care Team Providers Care Cup Setter Lockstitch Name Role Phone Unavailable Primary Care Provider Unavailabl e Encounter Details Date Type Department Care Team (Late st Contact Info) Description 11/19/2009 Legacy Encounter - Labs HISTORICAL CONVERSION [place] [phone], [place] [address] ProviderYoav MD [facility] AnyAndrew [place] [phone] Social History Tobacco Use Types Packs/Day Years [...]
--- OUTSIDE RECORDS SUMMARY | 2025-05-12 15:22 | XMS_ITS | Encounter Summary ---
Author Organization [facility] Address [address] [place] [address] Phone Care Team Providers Care Garage Mechanic Name Role Phone Unavailable Primary Care Provider Unavailabl e Encounter Details Date Type Department Care Team (Late st Contact Info) Description 03/13/2015 Legacy Encounter - Labs HISTORICAL CONVERSION [place] [phone], [place] [address] ProviderYoav MD [facility] the [facility] [place]Shane [place] [phone] Social History Tobacco Use Types Packs/Day Years [...]
--- OUTSIDE RECORDS SUMMARY | 2025-05-12 15:23 | XMS_ITS | Encounter Summary ---
Author Organization [facility] Address [address] [place] [address] Phone Care Team Providers Care Skirt Trimmer Name Role Phone Unavailable Primary Care Provider Unavailabl e Encounter Details Date Type Department Care Team (Late st Contact Info) Description 10/28/2005 Legacy Encounter - Labs HISTORICAL CONVERSION [place] [phone], [place] [address] ProvideroYav MD [facility] [place] [address] Social History Tobacco Use Types Packs/Day Years [...]
== END 2025-05-12 14:06 | disposition home or self-care (01) ==
LOC: HO.PMC 13:39
PROVIDERS: PCP Nurse Practitioner Family; Visit Provider Registered Nurse Emergency
DX: G89.4 Chronic pain syndrome (principal); M47.816 Spondylosis without myelopathy or radiculopathy, lumbar region; M54.9 Dorsalgia, unspecified
CPT/HCPCS: 99213; G2211

== ENCOUNTER → 2025-05-12 13:38 | Outpatient (BNVA) | payer MEDICARE, MEDICAID, SELFPAY | PROVIDERS: PCP Nurse Practitioner Family; Visit Provider Registered Nurse Emergency | DX: M54.9 Dorsalgia, unspecified (principal); G89.4 Chronic pain syndrome; M47.816 Spondylosis without myelopathy or radiculopathy, lumbar region | CPT/HCPCS: 99212 ==